=== PATIENT | female | born 1940 | race African-American/Black ===

== ENCOUNTER 2016-10-19 10:45 | Emergency (ER) | payer MEDICARE ==
[2016-10-19 10:50] VITALS: BP 111/61
== END 2016-10-19 12:48 | disposition left against medical advice (07) ==
LOC: ED 10:45
DX: R06.02 Shortness of breath (principal); Z53.21 Procedure and treatment not carried out due to patient leaving prior to being seen by health care provider

== ENCOUNTER 2017-07-08 10:59 | Emergency (ER) | payer MEDICARE ==
--- NOTE | 2017-07-08 11:54 | RAD ---
INDICATION: Chest pain. COMPARISON: Correlation is made with a prior study from August 08, 2016. TECHNIQUE: A portable view of the chest was obtained. FINDINGS: The heart is enlarged and unchanged from the prior exam. There is a dual-chamber transvenous pacemaker present. There is mild diffuse prominence of the interstitial markings. No focal infiltrate or pleural effusion is seen. IMPRESSION: FINDINGS SUGGESTIVE OF CONGESTIVE HEART FAILURE.
[2017-07-08 12:21] LABS: Hematocrit 38 % (35-47); Mean Corpuscular HGB Conc 32 g/dl (31-36); Mean Corpuscular Hemoglobin 27 pg (27-31); Mean Corpuscular Volume 85 fL (80-97); Mean Platelet Volume 9 um3 (7.4-10.4); Red Blood Count 4.48 10^6/ul (4.0-5.4); Red Cell Distribution Width 20 % (10.5-15); White Blood Count 9.5 10^3/ul (3.5-10.8)
[2017-07-08 12:22] LABS: Comments Flag Yes
[2017-07-08 12:23] LABS: Add Diff/Slide Review? Slide Review Added
[2017-07-08 12:31] LABS: Albumin 4.1 g/dL (3.2-5.2); BUN/Creatinine Ratio 19.1 (8-20); Calcium 9.7 mg/dL (8.6-10.3); EGFR African American 23.5 (>60); EGFR Non-African American 18.2 (>60); Globulin 3.6 g/dL (2-4); Potassium 3.7 mmol/L (3.5-5.0); Total Bilirubin 0.6 mg/dL (0.2-1.0); Total Protein 7.7 g/dL (6.4-8.9)
[2017-07-08 12:33] LABS: Troponin I 0.01 ng/mL (<0.04)
[2017-07-08] MEDS ORDERED: Ketorolac INJ* 30 MG/ML 1 ML VIAL IV ONE (13:10)
[2017-07-08 16:47] VITALS: BP 95/58
--- NOTE | 2017-07-08 21:11 | ED ---
Rajni Norwood Thomas, scribed for Kenneth Calderón MD on 07/08/17 at 1156 . HPI Chest Pain - HPI Summary HPI Summary: The pt is a 76 y/o F presenting to the ED c/o mid sternal CP that began today at 06:00. The pain is constant. The pain is described as sharp. The pain is rated 8/10. The pain is aggravated by deep breaths and movement. The pain is reproducible. It is alleviated by nothing. The patient was given ASA 324 [employer]. She is on Coumadin. Her blood glucose is 202 measured by EMS. She has a pacemaker. Her PMD is Dr. Lopez and her meat inspector is Dr. Schwab. She is accompanied by a female family member. - History of Current Complaint Chief Complaint: EDChestPainROMI Time Seen by Provider: 07/08/17 11:09 Hx Obtained From: Patient, Family/Human Resource Intern - female family member is present Onset/Duration: Started Hours Ago - onset today at 06:00, Still Present Timing: Constant Current Severity: Severe Pain Intensity: 8 Pain Scale Used: 0-10 Numeric Chest Pain Location: Mid Sternal Character: Sharp/Stabbing Aggravating Factor(s): Movement, Deep Breaths Alleviating Factor(s): Nothing Associated Signs and Symptoms: Positive: Chest Pain - Additional Pertinent History Primary Care Physician: SINCERE - Allergy/Home Medications Allergies/Adverse Reactions: Allergies Allergy/AdvReac Type Severity Reaction Status Date / Time Cephalexin [From Keflex] Allergy Intermediate Facial Verified 10/19/16 10:51 Redness/Flushing Shellfish Allergy Allergy Unknown Swelling Verified 10/19/16 10:51 Of Face,Lips,& Throat Dofetilide [From Tikosyn] Allergy palpitations, Verified 10/19/16 10:51 heart racing Enoxaparin [From Lovenox] Allergy blood too Verified 10/19/16 10:51 thinned Latex Allergy Swelling Verified 10/19/16 10:51 Eggs or Egg-derived Products AdvReac Unknown GI Upset Verified 10/19/16 10:51 Home Medications: Home Medications Atorvastatin* [Lipitor*] 20 mg PO DAILY 07/08/17 [History Confirmed 07/08/17] Insulin LISPRO* [HumaLOG*] 15 units SUBCUT TID WITH MEALS 07/08/17 [History Confirmed 07/08/17] LoraTADine TAB(NF) [Claritin 10 MG TAB(NF)] 10 mg PO DAILY 07/08/17 [History Confirmed 07/08/17] Omeprazole CAP* [Prilosec CAP* 20 MG] 40 mg PO BID 07/08/17 [History Confirmed 07/08/17] Pregabalin CAP(*) [Lyrica CAP(*)] 100 mg PO BID 07/08/17 [History Confirmed 08/14] Warfarin TAB(*) [Coumadin TAB(*)] 5 mg PO DAILY 07/08/17 [History Confirmed 08/14] PMH/Surg Hx/FS Hx/Imm Hx Previously Healthy: No Endocrine/Hematology History: Reports: Hx Anticoagulant Therapy, Hx Blood Transfusions, Hx Diabetes, Hx Anemia, Other Endocrine/Hematological Disorders Cardiovascular History: Reports: Hx Angina, Hx Auto Implanted Cardiovert Defib, Hx Cardiomegaly, Hx Congestive Heart Failure, Hx Coronary Artery Disease, Hx Hypercholesterolemia, Hx Hypertension, Hx Pacemaker/ICD, Hx Syncope Denies: Hx Myocardial Infarction, Hx Valvular Heart Disease Respiratory History: Reports: Hx Asthma, Hx Chronic Obstructive Pulmonary Disease (COPD), Hx Pleural Effusion, Hx Pulmonary Edema, Hx Sleep Apnea GI History: Reports: Hx Diverticulosis, Hx Gall Bladder Disease, Hx Gastroesophageal Reflux Disease, Other GI Disorders - Enlarged liver, polyps History: Reports: Hx Chronic Renal Failure, Hx Kidney Stones Denies: Hx Renal Disease Musculoskeletal History: Reports: Hx Arthritis, Hx Back Problems, Hx Gout Sensory History: Reports: Hx Cataracts, Hx Contacts or Glasses, Hx Vision Problem - blurry, Other Sensory Impairments - Neuropathy Opthamlomology History: Reports: Hx Cataracts, Hx Contacts or Glasses, Hx Vision Problem - blurry, Other Sensory Impairments - Neuropathy Neurological History: Reports: Hx Headaches, Hx Peripheral Neuropathy Psychiatric History: Reports: Hx Anxiety, Hx Depression - Surgical History Surgery Procedure, Year, and Place: Cholecystectomy 29 years ago. Appy 29 years ago. HYSTERECTOMY 29 years ago. Pacemaker placement 2009 Hx Anesthesia Reactions: No - Immunization History Date of Tetanus Vaccine: Unk Date of Influenza Vaccine: Fall 2014 Infectious Disease History: No Infectious Disease History: Denies: Traveled Outside the [place] in Last 30 Days - Family History Known Family History: Positive: Cardiac Disease - Brother with [place] at age 34 - Social History Alcohol Use: None Hx Substance Use: No Substance Use Type: Reports: None Substance Use Comment - Amount & Last Used: tramadol; oxycodone Hx Tobacco Use: No Smoking Status (MU): Never Smoked Tobacco Have You Smoked in the Last Year: No Review of Systems Negative: Fever Positive: Chest Pain - reproducible sharp CP with onset today at 06:00 worse with deep breaths All Other Systems Reviewed And Are Negative: Yes Physical Exam Triage Information Reviewed: Yes Vital Signs On Initial Exam: Initial Vitals Temp Pulse Resp BP Pulse Ox 97.8 F 70 16 110/73 98 07/08/17 11:48 07/08/17 11:48 07/08/17 11:48 07/08/17 11:48 07/08/17 11:48 Vital Signs Reviewed: Yes Appearance: Positive: Well-Appearing, No Pain Distress, Obese Skin: Positive: Warm, Skin Color Reflects Adequate Perfusion, Dry Head/Face: Positive: Normal Head/Face Inspection Eyes: Positive: Normal ENT: Positive: Normal ENT inspection Neck: Positive: Supple, Nontender Respiratory/Lung Sounds: Positive: Clear to Auscultation, Breath Sounds Present Cardiovascular: Positive: RRR, Other - She is tender to the left parasternal border. Abdomen Description: Positive: Nontender, Soft Bowel Sounds: Positive: Present Musculoskeletal: Positive: Normal Neurological: Positive: Normal Psychiatric: Positive: Normal, Affect/Mood Appropriate Diagnostics - Vital Signs Vital Signs Temp Pulse Resp BP Pulse Ox 07/08/17 11:48 97.8 F 70 16 110/73 98 - Laboratory Lab Results: Lab Results 07/08/17 07/08/17 07/08/17 Range/Units 11:55 11:55 11:55 WBC 9.5 (3.5-10.8) 10^3/ul RBC 4.48 (4.0-5.4) 10^6/ul Hgb 12.0 (12.0-16.0) g/dl Hct 38 (35-47) % MCV 85 (80-97) fL MCH 27 (27-31) pg MCHC 32 (31-36) g/dl RDW 20 H (10.5-15) % Plt Count 153 (150-450) 10^3/ul MPV 9 (7.4-10.4) um3 Neut % (Auto) 58.8 (38-83) % Lymph % (Auto) 25.3 (25-47) % [place] % (Auto) 13.2 H (1-9) % Eos % (Auto) 1.8 (0-6) % Baso % (Auto) 0.9 (0-2) % Absolute Neuts (auto) 5.6 (1.5-7.7) 10^3/ul Absolute Lymphs (auto) 2.4 (1.0-4.8) 10^3/ul Absolute Monos (auto) 1.2 H (0-0.8) 10^3/ul Absolute Eos (auto) 0.2 (0-0.6) 10^3/ul Absolute Basos (auto) 0.1 (0-0.2) 10^3/ul Absolute Nucleated RBC 0.06 10^3/ul Nucleated RBC % 0.6 INR (Anticoag Therapy) 1.87 H (0.89-1.11) Sodium 136 (133-145) mmol/L Potassium 3.7 (3.5-5.0) mmol/L Chloride 97 L (101-111) mmol/L Carbon Dioxide 31 (22-32) mmol/L Anion Gap 8 (2-11) mmol/L BUN 49 H (6-24) mg/dL Creatinine 2.57 H (0.51-0.95) mg/dL Est GFR ( Amer) 23.5 (>60) Est GFR (Non-Af Amer) 18.2 (>60) BUN/Creatinine Ratio 19.1 (8-20) Glucose 160 H (70-100) mg/dL Lactic Acid (0.5-2.0) mmol/L Calcium 9.7 (8.6-10.3) mg/dL Total Bilirubin 0.60 (0.2-1.0) mg/dL AST 15 (13-39) U/L ALT 11 (7-52) U/L Alkaline Phosphatase 68 (34-104) U/L Troponin I 0.01 (<0.04) ng/mL Total Protein 7.7 (6.4-8.9) g/dL Albumin 4.1 (3.2-5.2) g/dL Globulin 3.6 (2-4) g/dL Albumin/Globulin Ratio 1.1 (1-3) 07/08/17 07/08/17 Range/Units 11:55 14:25 WBC (3.5-10.8) 10^3/ul RBC (4.0-5.4) 10^6/ul Hgb (12.0-16.0) g/dl Hct (35-47) % MCV (80-97) fL MCH (27-31) pg MCHC (31-36) g/dl RDW (10.5-15) % Plt Count (150-450) 10^3/ul MPV (7.4-10.4) um3 Neut % (Auto) (38-83) % Lymph % (Auto) (25-47) % [place] % (Auto) (1-9) % Eos % (Auto) (0-6) % Baso % (Auto) (0-2) % Absolute Neuts (auto) (1.5-7.7) 10^3/ul Absolute Lymphs (auto) (1.0-4.8) 10^3/ul Absolute Monos (auto) (0-0.8) 10^3/ul Absolute Eos (auto) (0-0.6) 10^3/ul Absolute Basos (auto) (0-0.2) 10^3/ul Absolute Nucleated RBC 10^3/ul Nucleated RBC % INR (Anticoag Therapy) (0.89-1.11) Sodium (133-145) mmol/L Potassium (3.5-5.0) mmol/L Chloride (101-111) mmol/L Carbon Dioxide (22-32) mmol/L Anion Gap (2-11) mmol/L BUN (6-24) mg/dL Creatinine (0.51-0.95) mg/dL Est GFR ( Amer) (>60) Est GFR (Non-Af Amer) (>60) BUN/Creatinine Ratio (8-20) Glucose (70-100) mg/dL Lactic Acid 1.6 (0.5-2.0) mmol/L Calcium (8.6-10.3) mg/dL Total Bilirubin (0.2-1.0) mg/dL AST (13-39) U/L ALT (7-52) U/L Alkaline Phosphatase (34-104) U/L Troponin I 0.01 (<0.04) ng/mL Total Protein (6.4-8.9) g/dL Albumin (3.2-5.2) g/dL Globulin (2-4) g/dL Albumin/Globulin Ratio (1-3) Result Diagrams: 07/08/17 11:55 07/08/17 11:55 Lab Statement: Any lab studies that have been ordered have been reviewed, and results considered in the medical decision making process. - Radiology CXR Xray Interpretation: Positive (See Comments) - Findings suggestive of CHF. ED physician has reviewed this report and agrees. Radiology Interpretation Completed By: Radiologist - EKG 11:20 Cardiac Rate: NL - 70 BPM EKG Interpretation: Paced Chest Pain Course/Dx - Course Course Of Treatment: Ms. Forte presented with a reproducible atypical chest pain. He EDACS score was 4 and her W/U including a delayed troponin was negative. - Diagnoses Provider Diagnoses: Chest pain Discharge - Discharge Plan Condition: Stable Disposition: HOME Patient Education Materials: Chest Pain (ED) Referrals: January Lopez MD [Primary Care Provider] - 3 Days Additional Instructions: Follow up with your primary care provider in 2-3 days. I recommend ibuprofen for the pain. Return to the emergency for any new or worsening symptoms. The documentation as recorded by the Rajni irvin Thomas accurately reflects the service I personally performed and the decisions made by me, Kenneth Calderón MD.
== END 2017-07-08 16:10 | disposition home or self-care (01) ==
LOC: ED 10:59
DX: R07.9 Chest pain, unspecified (principal); Z79.01 Long term (current) use of anticoagulants
CPT/HCPCS: 36415; 71010; 80053; 83605; 84484; 85025; 85610; 93005; 96374; 99284; J1885

== ENCOUNTER 2018-02-12 19:30 | Inpatient (IN) | payer MEDICARE ==
[2018-02-12 22:08] LABS: Hematocrit 37 % (35-47); Hemoglobin 11.8 g/dl (12.0-16.0); Mean Corpuscular HGB Conc 32 g/dl (31-36); Mean Corpuscular Hemoglobin 28 pg (27-31); Mean Corpuscular Volume 87 fL (80-97); Mean Platelet Volume 8.8 um3 (7.4-10.4); Platelet Count 144 10^3/ul (150-450); Red Blood Count 4.21 10^6/ul (4.0-5.4); Red Cell Distribution Width 20 % (10.5-15); White Blood Count 7.7 10^3/ul (3.5-10.8)
[2018-02-12 22:30] LABS: EGFR Non-African American 20.6 (>60)
[2018-02-12 23:06] LABS: ABS Basophils 0.1 10^3/ul (0-0.2); ABS Eosinophils 0.1 10^3/ul (0-0.6); ABS Lymphocytes 2.1 10^3/ul (1.0-4.8); ABS Neutrophils 4.3 10^3/ul (1.5-7.7); ABS Nucleated RBC 0 10^3/ul; Eosinophil % 1.8 % (0-6); Lymphocyte % 27.8 % (25-47); Nucleated Red Blood Cells % 0.3
[2018-02-12] MEDS ORDERED: Furosemide IV* 10 MG/ML VIAL (40 MG) IV SLOW PU ONE (23:18)
--- NOTE | 2018-02-12 23:47 | ED ---
Uzma Norwood Emily, scribed for Kenneth Mccall MD on 02/12/18 at 2258 . HPI Chest Pain - HPI Summary HPI Summary: This patient is a 77 year old F presenting to [facility] accompanied by family with a chief complaint of waxing and waning, L-sided, below breast CP that began on the morning of 02/11/2018. The patient rates the pain 8/10 in severity. Symptoms aggravated by activity and lying on R side. Symptoms alleviated by nothing. Patient reports SOB, weakness, and fatigue. Pt reports waking up at 0300 yesterday with the CP. Pt reports being awake until 0300 today due to pain. Pt reports feeling weak and tired upon waking today. Pt reports having similar symptoms previously associated with her having fluid around her heart. - History of Current Complaint Chief Complaint: EDChestPainROMI Time Seen by Provider: 02/12/18 22:53 Hx Obtained From: Patient Onset/Duration: Started Days Ago, Still Present Timing: Constant, Lasting Days Initial Severity: Moderate Current Severity: Moderate Pain Intensity: 5 Pain Scale Used: 0-10 Numeric Chest Pain Location: Left Lateral Chest Pain Radiates: No Aggravating Factor(s): Exertion, Position Alleviating Factor(s): Nothing Associated Signs and Symptoms: Positive: Other: - Positive SOB, weakness, and fatigue - Additional Pertinent History Primary Care Physician: SINCERE - Allergy/Home Medications Allergies/Adverse Reactions: Allergies Allergy/AdvReac Type Severity Reaction Status Date / Time cephalexin [From Keflex] Allergy Facial Verified 02/12/18 19:38 Redness/Flushing dofetilide [From Tikosyn] Allergy Palpitation Verified 02/12/18 19:38 s Egg Derived Allergy GI Upset Verified 02/12/18 19:38 enoxaparin [From Lovenox] Allergy See Comment Verified 02/12/18 19:38 latex Allergy Swelling Verified 02/12/18 19:38 shellfish derived Allergy Swelling Verified 02/12/18 19:38 Of Face,Lips,& Throat PMH/Surg Hx/FS Hx/Imm Hx Previously Healthy: No Endocrine/Hematology History: Reports: Hx Anticoagulant Therapy, Hx Blood Transfusions, Hx Diabetes, Hx Anemia, Other Endocrine/Hematological Disorders Cardiovascular History: Reports: Hx Angina, Hx Auto Implanted Cardiovert Defib, Hx Cardiomegaly, Hx Congestive Heart Failure, Hx Coronary Artery Disease, Hx Hypercholesterolemia, Hx Hypertension, Hx Pacemaker/ICD, Hx Syncope Denies: Hx Myocardial Infarction, Hx Valvular Heart Disease Respiratory History: Reports: Hx Asthma, Hx Chronic Obstructive Pulmonary Disease (COPD), Hx Pleural Effusion, Hx Pulmonary Edema, Hx Sleep Apnea GI History: Reports: Hx Diverticulosis, Hx Gall Bladder Disease, Hx Gastroesophageal Reflux Disease, Other GI Disorders - Enlarged liver, polyps History: Reports: Hx Chronic Renal Failure, Hx Kidney Stones Denies: Hx Renal Disease Musculoskeletal History: Reports: Hx Arthritis, Hx Back Problems, Hx Gout Sensory History: Reports: Hx Cataracts, Hx Contacts or Glasses, Hx Vision Problem - blurry, Other Sensory Impairments - Neuropathy Opthamlomology History: Reports: Hx Cataracts, Hx Contacts or Glasses, Hx Vision Problem - blurry, Other Sensory Impairments - Neuropathy Neurological History: Reports: Hx Headaches, Hx Peripheral Neuropathy Psychiatric History: Reports: Hx Anxiety, Hx Depression - Surgical History Surgery Procedure, Year, and Place: Cholecystectomy 29 years ago. Appy 29 years ago. HYSTERECTOMY 29 years ago. Pacemaker placement 2009 Hx Anesthesia Reactions: No - Immunization History Date of Tetanus Vaccine: Unk Date of Influenza Vaccine: Fall 2014 Infectious Disease History: No Infectious Disease History: Denies: Traveled Outside the [place] in Last 30 Days - Family History Known Family History: Positive: Cardiac Disease - Brother with [place] at age 34 - Social History Occupation: Retired Lives: With Family Alcohol Use: None Hx Substance Use: No Substance Use Type: Reports: None Substance Use Comment - Amount & Last Used: tramadol; oxycodone Hx Tobacco Use: No Smoking Status (MU): Never Smoked Tobacco Have You Smoked in the Last Year: No Review of Systems Positive: Fatigue Positive: Chest Pain Positive: Shortness Of Breath Positive: Weakness All Other Systems Reviewed And Are Negative: Yes Physical Exam - Summary Physical Exam Summary: Appearance: Well-appearing, Well-nourished, lying in bed comfortably Skin: Warm, dry, no obvious rash Eyes: sclera anicteric, no conjunctiva pallor ENT: mucous membranes moist, pharynx appears normal Neck: Supple, nontender Respiratory: No signs of respiratory distress. End expiratory wheezing, but good aeration. Cardiovascular: Normal S1, S2. No murmurs. Normal distal pulses in tibial and radial bilaterally. No abnormal heart sounds. No pericardial friction rub Abdomen: Soft, nontender, normal active bowel sounds present Musculoskeletal: Normal, Strength/ROM Intact Neurological: A&Ox3, awake and alert, mentation is normal, speech is fluent and appropriate Psychiatric: affect is normal, does not appear anxious or depressed Triage Information Reviewed: Yes Vital Signs On Initial Exam: Initial Vitals Temp Pulse Resp BP Pulse Ox 98.8 F 70 18 143/79 92 02/12/18 19:35 02/12/18 19:35 02/12/18 19:35 02/12/18 19:35 02/12/18 19:35 Vital Signs Reviewed: Yes Diagnostics - Vital Signs Vital Signs Temp Pulse Resp BP Pulse Ox 02/12/18 22:33 70 16 93 02/12/18 21:36 97.9 F 70 18 130/69 96 02/12/18 19:35 98.8 F 70 18 143/79 92 - Laboratory Lab Results: Lab Results 02/12/18 02/12/18 Range/Units 21:51 21:51 WBC 7.7 (3.5-10.8) 10^3/ul RBC 4.21 (4.0-5.4) 10^6/ul Hgb 11.8 L (12.0-16.0) g/dl Hct 37 (35-47) % MCV 87 (80-97) fL MCH 28 (27-31) pg MCHC 32 (31-36) g/dl RDW 20 H (10.5-15) % Plt Count 144 L (150-450) 10^3/ul MPV 8.8 (7.4-10.4) um3 Neut % (Auto) Pending Lymph % (Auto) Pending [place] % (Auto) Pending Eos % (Auto) Pending Baso % (Auto) Pending Absolute Neuts (auto) Pending Absolute Lymphs (auto) Pending Absolute Monos (auto) Pending Absolute Eos (auto) Pending Absolute Basos (auto) Pending Absolute Nucleated RBC Pending Nucleated RBC % Pending Sodium 139 (139-145) mmol/L Potassium 3.8 (3.5-5.0) mmol/L Chloride 99 L (101-111) mmol/L Carbon Dioxide 33 H (22-32) mmol/L Anion Gap 7 (2-11) mmol/L BUN 41 H (6-24) mg/dL Creatinine 2.31 H (0.51-0.95) mg/dL Est GFR ( Amer) 26.5 (>60) Est GFR (Non-Af Amer) 20.6 (>60) BUN/Creatinine Ratio 17.7 (8-20) Glucose 171 H (70-100) mg/dL Calcium 9.4 (8.6-10.3) mg/dL Total Bilirubin 0.50 (0.2-1.0) mg/dL AST 15 (13-39) U/L ALT 10 (7-52) U/L Alkaline Phosphatase 69 (34-104) U/L Troponin I 0.00 (<0.04) ng/mL Total Protein 7.8 (6.4-8.9) g/dL Albumin 4.0 (3.2-5.2) g/dL Globulin 3.8 (2-4) g/dL Albumin/Globulin Ratio 1.1 (1-3) Result Diagrams: 02/12/18 21:51 02/12/18 21:51 Lab Statement: Any lab studies that have been ordered have been reviewed, and results considered in the medical decision making process. - Radiology CXR Radiology Interpretation Completed By: ED Physician - CXR reveals, per ED physician, cardiomegaly (unchanged), pacer wires look fine, increased interstitial markings which is consistent with CHF (which is changed from prior film from June,). - EKG 1928 Cardiac Rate: NL EKG Interpretation: Atrial paced at 71 BPM. No further analysis attempted Chest Pain Course/Dx - Diagnoses Provider Diagnoses: CHF (congestive heart failure), Chest pain - Provider Notifications Discussed Care Of Patient With: Patrick Posey Time Discussed With Above Provider: 23:29 Instructed by Provider To: Other - Consult with Dr. Posey (hospitalist) at 1329. He agrees to admit pt for further evaluation. Discharge - Sign-Out/Discharge Documenting (check all that apply): Discharge/Admit/Transfer - Discharge Plan Condition: Guarded Disposition: ADMITTED TO [facility] Referrals: January Lopez MD [Primary Care Provider] - - Billing Disposition and Condition Condition: GUARDED Disposition: [facility] [place] The documentation as recorded by the Uzma irvin Emily accurately reflects the service I personally performed and the decisions made by me, Kenneth Mccall MD.
--- NOTE | 2018-02-13 00:12 | HP ---
H&P (Free Text) History and Physical: PCP: Adrianna Lopez MD Date/Time: 02/12/2018 5637 CC: chest pain HPI: Mrs Suarez is a 78YO female HX DM2, CKD stg 4, AFIB, polymorphic VT, pericardial tamponade, CHF, non-obstructive CAD, HTN, HLD who presents with non- exertional chest pain radiating into the L neck and LUE associated with SOB, mild nausea, sweats, palpitations, and wheeze, but no emesis, light-headedness, F/C, diarrhea, or other issues. The pain is worse with movement & lying on the R side, better with immobility. PMedHx insulin requiring DM2 CKD stg 4 AFIB polymorphic VT pericardial tamponade AV pacer placement CHF non-obstructive CAD HTN HLD SUKH GERD gout anxiety Ambulatory Orders Nursing to reconcile. Albuterol HFA INHALER* [Ventolin HFA Inhaler*] 2 puff INH Q4H PRN 11/23/15 Linagliptin (NF) [Tradjenta (NF)] 5 mg PO DAILY 11/23/15 Metoprolol Succinate XL TAB* [Toprol XL TAB*] 100 mg PO BID 11/23/15 Montelukast Sodium TAB* [Singulair 10 MG TAB*] 10 mg PO DAILY 11/23/15 Polyethylene Glycol 3350* [Miralax*] 1 packet PO DAILY PRN 11/23/15 Torsemide TAB* [Demadex 20 MG*] 40 mg PO DAILY 11/23/15 oxyCODONE/Acetamin 5/325 MG* [Percocet 5/325 TAB*] 1 tab PO Q4H PRN 11/23/15 Allopurinol TAB* [Zyloprim 100 MG TAB*] 100 mg PO DAILY 02/19/16 Cholecalciferol TAB* [Vitamin D TAB*] 1,000 unit PO BID 02/19/16 Fluticasone-Salmeterol 500-50* [Advair Diskus 500-50*] 1 puff INH BID 02/19/16 Insulin GLARGINE(*) [Lantus(*)] 105 units SUBCUT QPM 02/19/16 Insulin GLARGINE(*) [Lantus(*)] 110 units SUBCUT QAM 02/19/16 Cyanocobalamin [B-12 Dots] 500 mcg PO QAM 08/08/16 Fluticasone NASAL SPRAY 50MCG* [Flonase NASAL SPRAY 50MCG*] 2 spray BOTH NARES DAILY 08/08/16 Magnesium Hydroxide LIQ* [Milk of Magnesia LIQ*] 30 ml PO DAILY 08/08/16 Mometasone 220 MCG MDI * [Asmanex 220 MCG MDI *] 2 puff INH DAILY 08/08/16 Olopatadine 0.1% OPHTH (NF) 1 drop BOTH EYES BID 08/08/16 [place]-3 Fatty Acids/Fish Oil [[place] 3 1,000 mg Softgel] 2 cap PO BID 08/08/16 Spironolactone [Aldactone 50 MG-] 50 mg PO QAM 08/08/16 metOLazone [Metolazone] 2.5 mg PO DAILY PRN 08/08/16 Atorvastatin* [Lipitor*] 20 mg PO DAILY 07/08/17 Insulin LISPRO* [HumaLOG*] 15 units SUBCUT TID WITH MEALS 07/08/17 LoraTADine TAB(NF) [Claritin 10 MG TAB(NF)] 10 mg PO DAILY 07/08/17 Omeprazole CAP* [Prilosec CAP* 20 MG] 40 mg PO BID 07/08/17 Pregabalin CAP(*) [Lyrica CAP(*)] 100 mg PO BID 07/08/17 Warfarin TAB(*) [Coumadin TAB(*)] 5 mg PO DAILY 07/08/17 Allergies latex Allergy (Verified 02/12/18 19:38) Swelling shellfish derived Allergy (Verified 02/12/18 19:38) Swelling Of Face,Lips,& Throat cephalexin [From Keflex] Adverse Reaction (Mild, Verified 02/13/18 02:44) Facial Redness/Flushing dofetilide [From Tikosyn] Adverse Reaction (Verified 02/13/18 02:44) Palpitations Egg Derived Adverse Reaction (Verified 02/13/18 02:44) GI Upset enoxaparin [From Lovenox] Adverse Reaction (Verified 02/13/18 02:44) "blood too thin" SocHx: no tobacco, alcohol, or recreational drugs; lives with son; full code status FamHx: Mother passed in her 50s 2nd CVA w/ CAD & RA. Father passed in his 90s of CVA w/ CAD. ROS: as above, otherwise reviewed and all were negative vitals: Vital Signs Temp 36.8 C 02/13/18 01:44 Pulse 70 02/13/18 01:44 Resp 18 02/13/18 03:24 BP 151/63 02/13/18 01:44 Pulse Ox 95 02/13/18 01:44 Intake & Output 02/12/18 02/12/18 02/13/18 11:59 23:59 11:59 Weight 112.945 kg 113.307 kg Constitutional: NAD, normally developed, morbidly obese HEENM: atraumatic; sclera/conjunctiva: anicteric/clear; hearing: clinically intact; oropharynx: clear, mucosa moist Neck: soft tissue: non-tender; thyroid: normal Pulmonary: diminished B bilaterally, fair aeration, no accessory muscle use CV: RR/RR, normal S1S2, no carotid bruit, no jugular venous distention, 2+ B DP/ PT, 1+ BLE edema Abdominal: soft, non-distended, non-tender, no rebound/guarding/rigidity, normoactive bowel sounds, no hepatosplenomegaly or masses, no costovertebral angle tenderness Musculoskeletal: general: grossly intact, non-tender Integumental: normal appearance and texture of exposed skin Psychiatric orientation: AA&O to PPS affect: calm mood: cooperative eye contact: good content: reliable responses: timely insight: good Testing: Lab Results 02/12/18 02/12/18 02/13/18 Range/Units 21:51 21:51 00:03 WBC 7.7 (3.5-10.8) 10^3/ul RBC 4.21 (4.0-5.4) 10^6/ul Hgb 11.8 L (12.0-16.0) g/dl Hct 37 (35-47) % MCV 87 (80-97) fL MCH 28 (27-31) pg MCHC 32 (31-36) g/dl RDW 20 H (10.5-15) % Plt Count 144 L (150-450) 10^3/ul MPV 8.8 (7.4-10.4) um3 Neut % (Auto) 55.5 (38-83) % Lymph % (Auto) 27.8 (25-47) % [place] % (Auto) 13.7 H (0-7) % Eos % (Auto) 1.8 (0-6) % Baso % (Auto) 1.2 (0-2) % Absolute Neuts (auto) 4.3 (1.5-7.7) 10^3/ul Absolute Lymphs (auto) 2.1 (1.0-4.8) 10^3/ul Absolute Monos (auto) 1.0 H (0-0.8) 10^3/ul Absolute Eos (auto) 0.1 (0-0.6) 10^3/ul Absolute Basos (auto) 0.1 (0-0.2) 10^3/ul Absolute Nucleated RBC 0 10^3/ul Nucleated RBC % 0.3 Sodium 139 (139-145) mmol/L Potassium 3.8 (3.5-5.0) mmol/L Chloride 99 L (101-111) mmol/L Carbon Dioxide 33 H (22-32) mmol/L Anion Gap 7 (2-11) mmol/L BUN 41 H (6-24) mg/dL Creatinine 2.31 H (0.51-0.95) mg/dL Est GFR ( Amer) 26.5 (>60) Est GFR (Non-Af Amer) 20.6 (>60) BUN/Creatinine Ratio 17.7 (8-20) Glucose 171 H (70-100) mg/dL Calcium 9.4 (8.6-10.3) mg/dL Total Bilirubin 0.50 (0.2-1.0) mg/dL AST 15 (13-39) U/L ALT 10 (7-52) U/L Alkaline Phosphatase 69 (34-104) U/L Troponin I 0.00 0.00 (<0.04) ng/mL Total Protein 7.8 (6.4-8.9) g/dL Albumin 4.0 (3.2-5.2) g/dL Globulin 3.8 (2-4) g/dL Albumin/Globulin Ratio 1.1 (1-3) / Range/Units 02:54 WBC (3.5-10.8) 10^3/ul RBC (4.0-5.4) 10^6/ul Hgb (12.0-16.0) g/dl Hct (35-47) % MCV (80-97) fL MCH (27-31) pg MCHC (31-36) g/dl RDW (10.5-15) % Plt Count (150-450) 10^3/ul MPV (7.4-10.4) um3 Neut % (Auto) (38-83) % Lymph % (Auto) (25-47) % [place] % (Auto) (0-7) % Eos % (Auto) (0-6) % Baso % (Auto) (0-2) % Absolute Neuts (auto) (1.5-7.7) 10^3/ul Absolute Lymphs (auto) (1.0-4.8) 10^3/ul Absolute Monos (auto) (0-0.8) 10^3/ul Absolute Eos (auto) (0-0.6) 10^3/ul Absolute Basos (auto) (0-0.2) 10^3/ul Absolute Nucleated RBC 10^3/ul Nucleated RBC % Sodium (139-145) mmol/L Potassium (3.5-5.0) mmol/L Chloride (101-111) mmol/L Carbon Dioxide (22-32) mmol/L Anion Gap (2-11) mmol/L BUN (6-24) mg/dL Creatinine (0.51-0.95) mg/dL Est GFR ( Amer) (>60) Est GFR (Non-Af Amer) (>60) BUN/Creatinine Ratio (8-20) Glucose (70-100) mg/dL Calcium (8.6-10.3) mg/dL Total Bilirubin (0.2-1.0) mg/dL AST (13-39) U/L ALT (7-52) U/L Alkaline Phosphatase (34-104) U/L Troponin I 0.00 (<0.04) ng/mL Total Protein (6.4-8.9) g/dL Albumin (3.2-5.2) g/dL Globulin (2-4) g/dL Albumin/Globulin Ratio (1-3) ECG, personally reviewed: AV pacing rate 71 CXR, personally reviewed: pulmonary edema ECHO (10/2015): Conclusions: The study is technically limited due to patient body habitus. Echocardiographic imaging enhancement agent (Definity) was used to better define LV endocardium. The left ventricular chamber size is normal. Mild concentric left ventricular hypertrophy is observed. The estimated ejection fraction is 55-60%. The left atrium is moderately dilated. The right ventricle is not well visualized although appears to be mildly dilated with mildly reduced systolic function. The right atrium is mildly dilated. There is evidence of an atrial septal aneurysm. There is mild tricuspid and mitral regurgitation that may be underestimated.There is evidence of mild to moderate pulmonary hypertension. Compared to prior study from 05/12/2014, significant changes include that the right ventricle is not well visualized although appears to be mildly dilated with mildly reduced function (was reported as normal previously). Impression: 78F HX DM2, CKD stg 4, AFIB, polymorphic VT, pericardial tamponade, CHF, non-obstructive CAD, HTN, & HLD presents with acute DIAGNOSIS & PLAN Primary acute systolic HF : furosemide diuresis : strict I&Os : daily weights : supplemental oxygen : supportive care Secondary insulin requiring DM2 : check A1c : basal/bolus/correctional insulin : insulin carb ratio diet CKD stg 4 : periodic monitoring AFIB : review meds once reconciled HX polymorphic VT HX pericardial tamponade s/p AV pacer placement : no acute issues non-obstructive CAD : review meds once reconciled HTN : review meds once reconciled HLD : review meds once reconciled GERD : review meds once reconciled gout : review meds once reconciled anxiety : review meds once reconciled Admission Rational: observation for CHF DVTp: continue warfarin once reconciled Code Status: full HCP: son
[2018-02-13] MEDS ORDERED: Acetaminophen TAB* 325 MG PO PRN (00:13)
[2018-02-13] MEDS ORDERED: CMCS: Melatonin (NF) 3 MG TAB PO PRN (00:13)
[2018-02-13] MEDS ORDERED: Albuterol HFA INHALER* 8 gm MDI INH PRN (02:39)
[2018-02-13] MEDS ORDERED: Metolazone TAB* 5 MG PO PRN (02:39)
[2018-02-13] MEDS: oxyCODONE/Acetamin 5/325 MG* TAB PO PRN ×3 (03:24→20:02)
[2018-02-13] MEDS: Metoprolol Succinate XL TAB* 100 MG PO SCH ×2 (03:24→21:40)
[2018-02-13] MEDS: Pregabalin CAP(*) 100 MG PO SCH ×2 (03:24→21:40)
[2018-02-13] MEDS ORDERED: Omeprazole CAP* 20 MG PO SCH (06:00)
[2018-02-13 07:06] LABS: INR 1.36 (0.77-1.02)
[2018-02-13 07:10] LABS: EGFR Non-African American 21.6 (>60)
--- NOTE | 2018-02-13 07:52 | RAD ---
HISTORY: Chest pain COMPARISONS: July 08, 2017 VIEWS: 1: frontal portable view of the chest at 10:40 PM FINDINGS: LINES AND TUBES: A left-sided pacemaker is noted. CARDIOMEDIASTINAL SILHOUETTE: The cardiac silhouette is enlarged. The cardiomediastinal silhouette is otherwise normal for portable technique. PLEURA: The costophrenic angles are sharp. No pleural abnormalities are noted. LUNG PARENCHYMA: There is prominence of the central pulmonary vasculature. ABDOMEN: The upper abdomen is clear. There is no subphrenic gas. BONES AND SOFT TISSUES: No bone or soft tissue abnormalities are noted. IMPRESSION: CARDIOMEGALY WITH PULMONARY VASCULAR CONGESTION
[2018-02-13] MEDS: Mometasone/Formoter 200/5 MDI INH SCH ×2 (08:05→19:52)
[2018-02-13] MEDS: Furosemide IV* 10 MG/ML VIAL (40 MG) IV SCH ×2 (08:26→12:47)
[2018-02-13] MEDS: Omeprazole CAP* 20 MG PO SCH ×2 (08:29→21:40)
[2018-02-13] MEDS: Docusate CAP* 100 MG PO SCH ×2 (08:29→21:40)
[2018-02-13] MEDS: Montelukast Sodium TAB* 10 MG PO SCH (08:30)
[2018-02-13] MEDS: Spironolactone TAB* 25 MG PO SCH (08:30)
[2018-02-13] MEDS: LINAGLIPTIN 5 MG PO SCH (08:31)
[2018-02-13] MEDS: Atorvastatin* 20 MG TAB PO SCH (08:31)
[2018-02-13] MEDS: Allopurinol TAB* 100 MG PO SCH (08:31)
[2018-02-13] MEDS: Insulin LISPRO* 1 UNITS UNIT SUBCUT SCH ×7 (09:15→21:44)
--- NOTE | 2018-02-13 09:47 | PN ---
Subjective Date of Service: 02/13/18 Interval History: HOSPITALIST PROGRESS NOTE Patient seen and examined at bedside. Care reviewed and d/w Mone Hardwick RN. Ms. Alberto feels better today. Denies chest pain, but breathing is still heavy and not back to baseline. She initially denied dietary indiscretions, but with further questions, she admits eating chips and cold cuts before her symptoms started. Family History: Unchanged from Admission Social History: Unchanged from Admission Past Medical History: Unchanged from Admission Objective Active Medications: Acetaminophen (Tylenol Tab*) 650 mg PO Q6H PRN PRN Reason: FEVER/PAIN Albuterol (Ventolin Hfa Inhaler*) 2 puff INH Q4H PRN PRN Reason: WHEEZING Allopurinol (Zyloprim Tab*) 100 mg PO DAILY [facility] Last Admin: 02/13/18 08:31 Dose: 100 mg Atorvastatin Calcium (Lipitor*) 20 mg PO DAILY [facility] Last Admin: 02/13/18 08:31 Dose: 20 mg Docusate Sodium (Colace Cap*) 200 mg PO BID [facility] Last Admin: 02/13/18 08:29 Dose: 200 mg Furosemide (Lasix Iv*) 40 mg IV 0800,1200 [facility] Last Admin: 02/13/18 08:26 Dose: 40 mg Insulin Glargine (Lantus(*)) 50 units SUBCUT 2100 [facility] Stop: 02/14/18 20:00 Insulin Human Lispro (Humalog*) 0 units SUBCUT AC [facility] PRN Reason: Protocol Last Admin: 02/13/18 09:15 Dose: 7 units Insulin Human Lispro (Humalog*) 0 units SUBCUT ACHS [facility] PRN Reason: Protocol Last Admin: 02/13/18 09:16 Dose: 3 units Linagliptin (Tradjenta (Nf)) 5 mg PO DAILY [facility] Last Admin: 02/13/18 08:31 Dose: Not Given Melatonin (Melatonin (Nf)) 3 mg PO BEDTIME PRN; Protocol PRN Reason: Sleep Metolazone (Zaroxolyn Tab*) 2.5 mg PO DAILY PRN PRN Reason: EDEMA Last Admin: 02/13/18 08:29 Dose: 2.5 mg Metoprolol Succinate (Toprol Xl Tab*) 100 mg PO BID [facility] Last Admin: 02/13/18 03:24 Dose: 100 mg Mometasone Furoate/Formoterol Fumar (Dulera 200/5 Mdi*) 2 puff INH BID [facility] Last Admin: 02/13/18 08:05 Dose: 2 puff Montelukast Sodium (Singulair Tab*) 10 mg PO DAILY [facility] Last Admin: 02/13/18 08:30 Dose: 10 mg Omeprazole (Prilosec Cap*) 40 mg PO BID [facility] Last Admin: 02/13/18 08:29 Dose: 40 mg Ondansetron HCl (Zofran Odt Tab*) 4 mg PO Q6H PRN PRN Reason: n/v Oxycodone/Acetaminophen (Percocet 5/325 Tab*) 1 tab PO Q4H PRN PRN Reason: PAIN Last Admin: 02/13/18 03:24 Dose: 1 tab Pregabalin (Lyrica Cap(*)) 100 mg PO BID [facility] Last Admin: 02/13/18 03:24 Dose: 100 mg Spironolactone (Aldactone Tab*) 50 mg PO QAM [facility] Last Admin: 02/13/18 08:30 Dose: 50 mg Warfarin Sodium (Coumadin Tab(*)) 5 mg PO 1700 [facility] PRN Reason: Protocol Vital Signs - 8 hr 02/13/18 02/13/18 02/13/18 03:24 03:35 06:13 Temperature 97.5 F Pulse Rate 70 Respiratory 18 20 16 Rate Blood Pressure 112/62 (mmHg) O2 Sat by Pulse 99 Oximetry 02/13/18 02/13/18 06:24 08:07 Temperature 98.0 F Pulse Rate 71 100 Respiratory 20 18 Rate Blood Pressure 129/72 (mmHg) O2 Sat by Pulse 93 94 Oximetry Oxygen Devices in Use Now: None Appearance: Morbid obese lady sitting up in bed in [facility]. Eyes: No Scleral Icterus Ears/Nose/Mouth/Throat: Mucous Membranes Moist Neck: Trachea Midline Respiratory: Symmetrical Chest Expansion and Respiratory Effort, - - BS+ bilaterally with bibasilar crackles Cardiovascular: RRR - Normal S1 and S2 Abdominal: NL Sounds; No Tenderness; No Distention Extremities: - - Mild LE edema Neurological: Alert and Oriented x 3, NL Muscle Strength and Tone Result Diagrams: 02/12/18 21:51 02/13/18 06:39 Assess/Plan/Problems-Billing Assessment: Mr. Suarez is a 77yo F with PMH of morbid obesity with BMI 42, type 2 DM, CKD stage 4, Afib, Vtach, pericardial tamponade, s/p pacer, CAD, diastolic CHF, HTN , HLD, SUKH, GERD, gout, anxiety, who presented to ED with c/o chest pain and dyspnea, found to have CHF exacerbation. - Patient Problems (1) Acute exacerbation of congestive heart failure Comment: - Acute diastolic CHF exacerbation secondary to dietary non complaince most likely. - Continue diuresis with Furosemide. - Monitor I/Os and daily weights. (2) Chest pain Comment: - Patient had non obstructive CAD in 2008 and stress test in 2016 was suggestive of an apical infarct. - Will pursue stress test when CHF compensated. (3) Type II diabetes mellitus Comment: - A1c is 9.1%. - Continue Lantus, Tradjenta, and Lispro SS. (4) Chronic renal disease, stage IV Comment: - At baseline. - Continue diuretics and monitor renal function. (5) Atrial fibrillation Comment: - Continue Metoprolol and Warfarin. (6) HTN (hypertension) Comment: - Continue Metoprolol, furosemide, aldactone. (7) DVT prophylaxis Comment: - SQ heparin until INR is therapeutic. (8) Full code status Status and Disposition: Inpatient for management of CHF exacerbation.
[2018-02-13] MEDS ORDERED: Warfarin TAB(*) 5 MG PO SCH (17:00)
[2018-02-13] MEDS ORDERED: Insulin GLARGINE(*) 1 UNITS UNIT SUBCUT SCH (21:00)
[2018-02-14] MEDS: oxyCODONE/Acetamin 5/325 MG* TAB PO PRN ×2 (03:02→09:12)
[2018-02-14] MEDS: Ondansetron ODT TAB* 4 MG PO PRN ×3 (03:25→21:22)
[2018-02-14] MEDS: Mometasone/Formoter 200/5 MDI INH SCH ×2 (07:59→20:28)
[2018-02-14] MEDS: Insulin LISPRO* 1 UNITS UNIT SUBCUT SCH ×7 (09:05→21:26)
[2018-02-14] MEDS: Furosemide IV* 10 MG/ML VIAL (40 MG) IV SCH ×2 (09:08→13:09)
[2018-02-14] MEDS: Docusate CAP* 100 MG PO SCH ×2 (09:08→21:22)
[2018-02-14] MEDS: Omeprazole CAP* 20 MG PO SCH ×2 (09:08→21:22)
[2018-02-14] MEDS: Allopurinol TAB* 100 MG PO SCH (09:08)
[2018-02-14] MEDS: Montelukast Sodium TAB* 10 MG PO SCH (09:08)
[2018-02-14] MEDS: Pregabalin CAP(*) 100 MG PO SCH ×2 (09:08→21:22)
[2018-02-14] MEDS: Spironolactone TAB* 25 MG PO SCH (09:08)
[2018-02-14] MEDS: Metoprolol Succinate XL TAB* 100 MG PO SCH ×2 (09:08→21:22)
[2018-02-14] MEDS: Atorvastatin* 20 MG TAB PO SCH (09:08)
[2018-02-14] MEDS: LINAGLIPTIN 5 MG PO SCH (09:16)
[2018-02-14 09:30] LABS: INR 1.29 (0.77-1.02)
[2018-02-14 09:42] LABS: EGFR Non-African American 21.2 (>60)
--- NOTE | 2018-02-14 10:34 | PN ---
Subjective Date of Service: 02/14/18 Interval History: HOSPITALIST PROGRESS NOTE Patient seen and examined at bedside. Care reviewed and d/w Nguyễn Aguila RN. She feels better today. Chest pain and heaviness are resolved, breathing is easier. Family History: Unchanged from Admission Social History: Unchanged from Admission Past Medical History: Unchanged from Admission Objective Active Medications: Acetaminophen (Tylenol Tab*) 650 mg PO Q6H PRN PRN Reason: FEVER/PAIN Albuterol (Ventolin Hfa Inhaler*) 2 puff INH Q4H PRN PRN Reason: WHEEZING Allopurinol (Zyloprim Tab*) 100 mg PO DAILY [facility] Last Admin: 02/14/18 09:08 Dose: 100 mg Atorvastatin Calcium (Lipitor*) 20 mg PO DAILY [facility] Last Admin: 02/14/18 09:08 Dose: 20 mg Docusate Sodium (Colace Cap*) 200 mg PO BID [facility] Last Admin: 02/14/18 09:08 Dose: 200 mg Furosemide (Lasix Iv*) 40 mg IV 0800,1200 [facility] Last Admin: 02/14/18 09:08 Dose: 40 mg Insulin Glargine (Lantus(*)) 50 units SUBCUT 2100 [facility] Last Admin: 02/13/18 21:43 Dose: 50 units Insulin Human Lispro (Humalog*) 0 units SUBCUT AC [facility] PRN Reason: Protocol Last Admin: 02/14/18 09:05 Dose: 5 units Insulin Human Lispro (Humalog*) 0 units SUBCUT ACHS [facility] PRN Reason: Protocol Last Admin: 02/14/18 09:05 Dose: 6 units Linagliptin (Tradjenta (Nf)) 5 mg PO DAILY [facility] Last Admin: 02/14/18 09:16 Dose: Not Given Melatonin (Melatonin (Nf)) 3 mg PO BEDTIME PRN; Protocol PRN Reason: Sleep Metoprolol Succinate (Toprol Xl Tab*) 100 mg PO BID [facility] Last Admin: 02/14/18 09:08 Dose: 100 mg Mometasone Furoate/Formoterol Fumar (Dulera 200/5 Mdi*) 2 puff INH BID [facility] Last Admin: 02/14/18 07:59 Dose: 2 puff Montelukast Sodium (Singulair Tab*) 10 mg PO DAILY [facility] Last Admin: 02/14/18 09:08 Dose: 10 mg Omeprazole (Prilosec Cap*) 40 mg PO BID [facility] Last Admin: 02/14/18 09:08 Dose: 40 mg Ondansetron HCl (Zofran Odt Tab*) 4 mg PO Q6H PRN PRN Reason: n/v Last Admin: 02/14/18 09:07 Dose: 4 mg Oxycodone/Acetaminophen (Percocet 5/325 Tab*) 1 tab PO Q4H PRN PRN Reason: PAIN Last Admin: 02/14/18 09:12 Dose: 1 tab Pregabalin (Lyrica Cap(*)) 100 mg PO BID [facility] Last Admin: 02/14/18 09:08 Dose: 100 mg Spironolactone (Aldactone Tab*) 50 mg PO QAM [facility] Last Admin: 02/14/18 09:08 Dose: 50 mg Warfarin Sodium (Coumadin Tab(*)) 5 mg PO 1700 [facility] PRN Reason: Protocol Last Admin: 02/13/18 18:30 Dose: 5 mg Vital Signs - 8 hr 02/14/18 02/14/18 02/14/18 03:02 08:01 09:08 Pulse Rate 74 Respiratory 18 14 16 Rate O2 Sat by Pulse 94 Oximetry Oxygen Devices in Use Now: None Appearance: Pleasant morbid obese lady sitting up in bed in [facility]. Eyes: No Scleral Icterus Ears/Nose/Mouth/Throat: Mucous Membranes Moist Neck: Trachea Midline Respiratory: Symmetrical Chest Expansion and Respiratory Effort, - - BS+ bilaterally with crackles on left base Cardiovascular: RRR - Normal S1 and S2 Neurological: Alert and Oriented x 3, NL Muscle Strength and Tone Result Diagrams: 02/12/18 21:51 02/14/18 09:17 Assess/Plan/Problems-Billing Assessment: Mr. Suarez is a 77yo F with PMH of morbid obesity with BMI 42, type 2 DM, CKD stage 4, Afib, Vtach, pericardial tamponade, s/p pacer, CAD, diastolic CHF, HTN , HLD, SUKH, GERD, gout, anxiety, who presented to ED with c/o chest pain and dyspnea, found to have CHF exacerbation. - Patient Problems (1) Acute exacerbation of congestive heart failure Comment: - Acute diastolic CHF exacerbation secondary to dietary non complaince most likely. - Continue diuresis with Furosemide. - Monitor I/Os and daily weights - weight down to 247lbs. (2) Chest pain Comment: - Patient had non obstructive CAD in 2009 and stress test in 2016 was suggestive of an apical infarct. - Will pursue stress test when CHF compensated. (3) Type II diabetes mellitus Comment: - A1c is 9.1%. - Continue Lantus, Tradjenta, and Lispro SS. (4) Chronic renal disease, stage IV Comment: - At baseline. - Continue diuretics and monitor renal function. (5) Atrial fibrillation Comment: - Continue Metoprolol and Warfarin. (6) HTN (hypertension) Comment: - Continue Metoprolol, furosemide, aldactone. (7) DVT prophylaxis Comment: - SQ heparin until INR is therapeutic. (8) Full code status Status and Disposition: Inpatient for management of CHF exacerbation.
[2018-02-14] MEDS ORDERED: Warfarin TAB(*) 6 MG PO SCH (17:00)
[2018-02-14] MEDS ORDERED: Insulin GLARGINE(*) 1 UNITS UNIT SUBCUT SCH (21:00)
[2018-02-15] MEDS: oxyCODONE/Acetamin 5/325 MG* TAB PO PRN ×4 (02:07→19:26)
[2018-02-15] MEDS: Insulin LISPRO* 1 UNITS UNIT SUBCUT SCH ×7 (08:00→20:37)
[2018-02-15] MEDS: Spironolactone TAB* 25 MG PO SCH (08:59)
[2018-02-15] MEDS: Omeprazole CAP* 20 MG PO SCH ×2 (08:59→20:34)
[2018-02-15] MEDS: Docusate CAP* 100 MG PO SCH ×3 (08:59→19:27)
[2018-02-15] MEDS: Montelukast Sodium TAB* 10 MG PO SCH (09:00)
[2018-02-15] MEDS: Furosemide IV* 10 MG/ML VIAL (40 MG) IV SCH ×2 (09:00→13:28)
[2018-02-15] MEDS: Atorvastatin* 20 MG TAB PO SCH (09:00)
[2018-02-15] MEDS: Pregabalin CAP(*) 100 MG PO SCH ×2 (09:00→20:35)
[2018-02-15] MEDS: Metoprolol Succinate XL TAB* 100 MG PO SCH ×2 (09:01→20:34)
[2018-02-15] MEDS: Allopurinol TAB* 100 MG PO SCH (09:01)
[2018-02-15] MEDS: LINAGLIPTIN 5 MG PO SCH (09:01)
[2018-02-15 09:17] LABS: INR 1.39 (0.77-1.02)
[2018-02-15 09:22] LABS: Hematocrit 38 % (35-47); Hemoglobin 12.1 g/dl (12.0-16.0); Mean Corpuscular HGB Conc 32 g/dl (31-36); Mean Corpuscular Hemoglobin 28 pg (27-31); Mean Corpuscular Volume 87 fL (80-97); Mean Platelet Volume 9.1 um3 (7.4-10.4); Platelet Count 146 10^3/ul (150-450); Red Blood Count 4.35 10^6/ul (4.0-5.4); Red Cell Distribution Width 20 % (10.5-15); White Blood Count 8.5 10^3/ul (3.5-10.8)
[2018-02-15 09:28] LABS: EGFR Non-African American 20.4 (>60)
[2018-02-15] MEDS: Mometasone/Formoter 200/5 MDI INH SCH ×2 (10:15→21:24)
[2018-02-15 10:29] LABS: ABS Basophils 0.1 10^3/ul (0-0.2); ABS Eosinophils 0.1 10^3/ul (0-0.6); ABS Neutrophils 5.2 10^3/ul (1.5-7.7); ABS Nucleated RBC 0 10^3/ul; Eosinophil % 1.6 % (0-6); Lymphocyte % 23.6 % (25-47); Nucleated Red Blood Cells % 0.4
[2018-02-15] MEDS ORDERED: Regadenoson* 0.4 MG/5 ML SYRINGE ONE (12:40)
--- NOTE | 2018-02-15 13:41 | RAD ---
Edited for charges. INDICATION: Chest pain COMPARISON: Myocardial SPECT August 11, 2016 TECHNIQUE: A single day SPECT protocol was utilized. Rest images were acquired following the intravenous injection of 10.52 millicuries of technetium 99m tetrofosmin. Pharmacologic stress images were acquired following the intravenous administration of 26.5 millicuries of technetium 99m tetrofosmin. FINDINGS: There is a small inferoapical defect perhaps with a small amount of ischemia in the inferior wall near the apex. There are no other defects or stress-induced or fixed nature.. The cardiac chamber size is normal. There is paradoxical motion at the cardiac apex inferiorly. The ejection fraction is calculated at 57 percent during stress. IMPRESSION: INFEROAPICAL DEFECT CONSISTENT WITH INFARCT. THERE MAY BE SUBTLE PREMA-INFARCT ISCHEMIC CHANGE. ASSESSMENT: INTERMEDIATE-RISK Based on imaging criteria from ACC/AHA 2002 Guideline Update for the Management of Patients With Chronic Stable Angina Table 23. Noninvasive Risk Stratification. MTDD
--- NOTE | 2018-02-15 14:52 | CONSULT ---
Subjective Reason for Visit: chest pain Admission Date: 02/12/18 Glucose Level On Admission: 171 History Of Present Illness: Ms. Suarez is a 77 year old female, admitted for acute systolic heart failure. Pt has history of poorly controlled type II diabetes, diabetes education consult requested by hospitalist group. Ms. Suarez reports being diagnosed with type II diabetes over 30 years ago. Is managed by her PCP Dr. Lopez and is prescribed Lantus (90 units AM, 80 units PM), Humalog (14 units TID). Fasting blood glucose typically ranges from 140-160 but frequently is in the 70's. Pt and her family report a long history of poor glycemic control, worse this winter when cold weather kept her homebound most of the time. Meal pattern is very irregular with frequent skipped meals. While family members provide most of her meals, often she refuses to eat. Pt reports that this is because they have been offering her healthier foods that she does not care for, and because poor dentition makes it difficult to chew. Drinks primarily gingerale. She has had nutrition education in the past but not recently. Patient History Surgical History: Yes Surgery Procedure, Year, and Place: Cholecystectomy 29 years ago. Appy 29 years ago. HYSTERECTOMY 29 years ago. Pacemaker placement 2009 Past Family History: Mother-CVA, CAD, RA Father-CVA, CAD Social Support: Multiple family members present at bedside. Family members provide most meals to patient. Hx Tobacco Use: No Exercise: Limited Review Of Systems - Review of Systems Constant: - - poor appetite Cardiovascular: - - Chest pain Objective Allergies Allergy/AdvReac Type Severity Reaction Status Date / Time latex Allergy Swelling Verified 02/12/18 19:38 shellfish derived Allergy Swelling Verified 02/12/18 19:38 Of Face,Lips,& Throat cephalexin [From Keflex] AdvReac Mild Facial Verified 02/13/18 02:44 Redness/Flushing dofetilide [From Tikosyn] AdvReac Palpitation Verified 02/13/18 02:44 s enoxaparin [From Lovenox] AdvReac "blood too Verified 02/13/18 02:44 thin" Home Medications Medication Instructions Recorded Confirmed Type Albuterol HFA INHALER* [Ventolin 2 puff INH Q4H PRN 11/23/15 02/13/18 History HFA Inhaler*] Linagliptin (NF) [Tradjenta (NF)] 5 mg PO DAILY 11/23/15 02/13/18 History Metoprolol Succinate XL TAB* 100 mg PO BID 11/23/15 02/13/18 History [Toprol XL TAB*] Montelukast Sodium TAB* [Singulair 10 mg PO DAILY 11/23/15 02/13/18 History 10 MG TAB*] Polyethylene Glycol 3350* 1 packet PO DAILY PRN 11/23/15 02/13/18 History [Miralax*] Torsemide TAB* [Demadex 20 MG*] 40 mg PO DAILY 11/23/15 02/13/18 History oxyCODONE/Acetamin 5/325 MG* 1 tab PO Q4H PRN 11/23/15 02/13/18 History [Percocet 5/325 TAB*] Allopurinol TAB* [Zyloprim 100 MG 100 mg PO DAILY 02/19/16 02/13/18 History TAB*] Cholecalciferol TAB* [Vitamin D 1,000 unit PO BID 02/19/16 02/13/18 History TAB*] Fluticasone-Salmeterol 500-50* 1 puff INH BID 02/19/16 02/13/18 History [Advair Diskus 500-50*] Insulin GLARGINE(*) [Lantus(*)] 105 units SUBCUT QPM 02/19/16 02/13/18 History Insulin GLARGINE(*) [Lantus(*)] 110 units SUBCUT QAM 02/19/16 02/13/18 History Cyanocobalamin [B-12 Dots] 500 mcg PO QAM 08/08/16 02/13/18 History Fluticasone NASAL SPRAY 50MCG* 2 spray BOTH NARES DAILY 08/08/16 02/13/18 History [Flonase NASAL SPRAY 50MCG*] Magnesium Hydroxide LIQ* [Milk of 30 ml PO DAILY 08/08/16 02/13/18 History Magnesia LIQ*] Mometasone 220 MCG MDI * [Asmanex 2 puff INH DAILY 08/08/16 02/13/18 History 220 MCG MDI *] Olopatadine 0.1% OPHTH (NF) 1 drop BOTH EYES BID 08/08/16 02/13/18 History Asher-3 Fatty Acids/Fish Oil 2 cap PO BID 08/08/16 02/13/18 History [Asher 3 1,000 mg Softgel] Spironolactone [Aldactone 50 MG-] 50 mg PO QAM 08/08/16 02/13/18 History metOLazone [Metolazone] 2.5 mg PO DAILY PRN 08/08/16 02/13/18 History Atorvastatin* [Lipitor*] 20 mg PO DAILY 07/08/17 02/13/18 History Insulin LISPRO* [HumaLOG*] 15 units SUBCUT TID WITH MEALS 07/08/17 02/13/18 History LoraTADine TAB(NF) [Claritin 10 MG 10 mg PO DAILY 07/08/17 02/13/18 History TAB(NF)] Omeprazole CAP* [Prilosec CAP* 20 40 mg PO BID 07/08/17 02/13/18 History MG] Pregabalin CAP(*) [Lyrica CAP(*)] 100 mg PO BID 07/08/17 02/13/18 History Warfarin TAB(*) [Coumadin TAB(*)] 5 mg PO DAILY 07/08/17 02/13/18 History Hospital Medications: Current Medications Acetaminophen (Tylenol Tab*) 650 mg PO Q6H PRN PRN Reason: FEVER/PAIN Albuterol (Ventolin Hfa Inhaler*) 2 puff INH Q4H PRN PRN Reason: WHEEZING Allopurinol (Zyloprim Tab*) 100 mg PO DAILY [facility] Last Admin: 02/15/18 09:01 Dose: 100 mg Atorvastatin Calcium (Lipitor*) 20 mg PO DAILY [facility] Last Admin: 02/15/18 09:00 Dose: 20 mg Docusate Sodium (Colace Cap*) 200 mg PO BID [facility] Last Admin: 02/15/18 09:07 Dose: Not Given Furosemide (Lasix Iv*) 40 mg IV 0800,1200 [facility] Last Admin: 02/15/18 13:28 Dose: 40 mg Insulin Glargine (Lantus(*)) 60 units SUBCUT 2100 [facility] Insulin Human Lispro (Humalog*) 0 units SUBCUT AC [facility] PRN Reason: Protocol Last Admin: 02/15/18 12:59 Dose: Not Given Insulin Human Lispro (Humalog*) 0 units SUBCUT ACHS [facility] PRN Reason: Protocol Last Admin: 02/15/18 13:28 Dose: 6 units Linagliptin (Tradjenta (Nf)) 5 mg PO DAILY [facility] Last Admin: 02/15/18 09:01 Dose: Not Given Melatonin (Melatonin (Nf)) 3 mg PO BEDTIME PRN; Protocol PRN Reason: Sleep Metoprolol Succinate (Toprol Xl Tab*) 100 mg PO BID [facility] Last Admin: 02/15/18 09:01 Dose: Not Given Mometasone Furoate/Formoterol Fumar (Dulera 200/5 Mdi*) 2 puff INH BID [facility] Last Admin: 02/15/18 10:15 Dose: 2 puff Montelukast Sodium (Singulair Tab*) 10 mg PO DAILY [facility] Last Admin: 02/15/18 09:00 Dose: 10 mg Omeprazole (Prilosec Cap*) 40 mg PO BID [facility] Last Admin: 02/15/18 08:59 Dose: 40 mg Ondansetron HCl (Zofran Odt Tab*) 4 mg PO Q6H PRN PRN Reason: n/v Last Admin: 02/14/18 21:22 Dose: 4 mg Oxycodone/Acetaminophen (Percocet 5/325 Tab*) 1 tab PO Q4H PRN PRN Reason: PAIN Last Admin: 02/15/18 13:27 Dose: 1 tab Pregabalin (Lyrica Cap(*)) 100 mg PO BID [facility] Last Admin: 02/15/18 09:00 Dose: 100 mg Spironolactone (Aldactone Tab*) 50 mg PO QAM [facility] Last Admin: 02/15/18 08:59 Dose: 50 mg Warfarin Sodium (Coumadin Tab(*)) 6 mg PO 1700 [facility] PRN Reason: Protocol Last Admin: 02/14/18 18:01 Dose: 6 mg Lab Data: Sodium 135 mmol/L (139-145) L 02/15/18 09:04 Potassium 4.4 mmol/L (3.5-5.0) 02/15/18 09:04 BUN 59 mg/dL (6-24) H 02/15/18 09:04 Creatinine 2.33 mg/dL (0.51-0.95) H 02/15/18 09:04 Hemoglobin A1c 9.1 % (4.0-5.6) H 02/12/18 21:51 Calcium 10.0 mg/dL (8.6-10.3) 02/15/18 09:04 AST 15 U/L (13-39) 02/12/18 21:51 ALT 10 U/L (7-52) 02/12/18 21:51 Vital Signs: Vital Signs 02/15/18 02/15/18 02/15/18 08:13 09:00 09:03 Temperature 36.7 C Pulse Rate 70 Respiratory 19 16 16 Rate Blood Pressure 100/59 (mmHg) O2 Sat by Pulse 93 Oximetry 02/15/18 13:27 Temperature Pulse Rate Respiratory 16 Rate Blood Pressure (mmHg) O2 Sat by Pulse Oximetry Height: 5 ft 4 in Weight: 112.173 kg Body Mass Index (BMI): 42.4 Physical Exam General Appearance: Positive: Alert, Oriented x3, Comfortable, Lying In Bed Dentition: Positive: Dental Decay, Multiple Missing teeth Cardiovascular: Positive: RRR Plan Of Care Patient's Next Step: Discussed with patient and family the importance of following a consistent carbohydrate diet. Sample meal plan and information on carbohydrate counting provided. Signs, symptoms, prevention, and treatment of hypoglycemia discussed. Emphasized the importance of following a consistent meal pattern and avoidance of skipped meals. Strongly advised patient to stop drinking soda. Pt would benefit from lifestyle modification and on-going medical nutrition therapy to help balance complex dietary needs (DM, CHF, on coumadin). Recommend that patient follow up as an outpatient at [facility]. Referral To: [facility] For Further OutPT Diabetic Training Diagnosis: Type II diabetes with hyperglycemia and hypoglycemia Discharge Plan: Outpatient follow up at [facility] Education Prior Diabetic Education: Yes Handouts Provided: Carbohydrate counting, 45 g. CHO meal plan, Living Well With Diabetes, My Plate , Healthy Snacks, Non-Starchy Vegetables Goals Goals: According to the [place] [employer], the following are your goals for Hemaglobin A1C, Blood Glucose. Hemaglobin A1C * <7.0% for most * <6.5% for "healthy" * <8.0% for "Less Healthy" Blood Glucose * Fasting Blood Glucose: 80-130 mg/dl * 2 Hour Post Prandial Glucose <180 mg/dl
[2018-02-15 16:32] LABS: Urine Appearance Clear; Urine Blood Negative (Negative); Urine Color Straw; Urine Ketones Negative (Negative); Urine Protein Negative (Negative); Urine Specific Gravity 1.008 (1.010-1.030); Urine Urobilinogen Negative (Negative)
--- NOTE | 2018-02-15 16:32 | PN ---
Subjective Date of Service: 02/15/18 Interval History: HOSPITALIST PROGRESS NOTE Patient seen and examined at bedside. Care reviewed and d/w Pao Lizama RN. She feels worse today. Chest pain and breathing are improved, but she has severe left flank pain, associated with nausea. Denies urinary symptoms today, but states she had dysuria prior to admission. Family History: Unchanged from Admission Social History: Unchanged from Admission Past Medical History: Unchanged from Admission Objective Active Medications: Acetaminophen (Tylenol Tab*) 650 mg PO Q6H PRN PRN Reason: FEVER/PAIN Albuterol (Ventolin Hfa Inhaler*) 2 puff INH Q4H PRN PRN Reason: WHEEZING Allopurinol (Zyloprim Tab*) 100 mg PO DAILY [facility] Last Admin: 02/15/18 09:01 Dose: 100 mg Atorvastatin Calcium (Lipitor*) 20 mg PO DAILY [facility] Last Admin: 02/15/18 09:00 Dose: 20 mg Docusate Sodium (Colace Cap*) 200 mg PO BID [facility] Last Admin: 02/15/18 09:07 Dose: Not Given Furosemide (Lasix Iv*) 40 mg IV 0800,1200 [facility] Last Admin: 02/15/18 13:28 Dose: 40 mg Insulin Glargine (Lantus(*)) 60 units SUBCUT 2100 [facility] Insulin Human Lispro (Humalog*) 0 units SUBCUT AC [facility] PRN Reason: Protocol Last Admin: 02/15/18 12:59 Dose: Not Given Insulin Human Lispro (Humalog*) 0 units SUBCUT ACHS [facility] PRN Reason: Protocol Last Admin: 02/15/18 13:28 Dose: 6 units Linagliptin (Tradjenta (Nf)) 5 mg PO DAILY [facility] Last Admin: 02/15/18 09:01 Dose: Not Given Melatonin (Melatonin (Nf)) 3 mg PO BEDTIME PRN; Protocol PRN Reason: Sleep Metoprolol Succinate (Toprol Xl Tab*) 100 mg PO BID [facility] Last Admin: 02/15/18 09:01 Dose: Not Given Mometasone Furoate/Formoterol Fumar (Dulera 200/5 Mdi*) 2 puff INH BID [facility] Last Admin: 02/15/18 10:15 Dose: 2 puff Montelukast Sodium (Singulair Tab*) 10 mg PO DAILY [facility] Last Admin: 02/15/18 09:00 Dose: 10 mg Morphine Sulfate (Morphine Vial*) 4 mg IV Q4H PRN PRN Reason: Moderate to Severe Pain Omeprazole (Prilosec Cap*) 40 mg PO BID [facility] Last Admin: 02/15/18 08:59 Dose: 40 mg Ondansetron HCl (Zofran Odt Tab*) 4 mg PO Q6H PRN PRN Reason: n/v Last Admin: 02/14/18 21:22 Dose: 4 mg Oxycodone/Acetaminophen (Percocet 5/325 Tab*) 1 tab PO Q4H PRN PRN Reason: PAIN Last Admin: 02/15/18 13:27 Dose: 1 tab Pregabalin (Lyrica Cap(*)) 100 mg PO BID [facility] Last Admin: 02/15/18 09:00 Dose: 100 mg Spironolactone (Aldactone Tab*) 50 mg PO QAM [facility] Last Admin: 02/15/18 08:59 Dose: 50 mg Warfarin Sodium (Coumadin Tab(*)) 6 mg PO 1700 [facility] PRN Reason: Protocol Last Admin: 02/14/18 18:01 Dose: 6 mg Vital Signs - 8 hr 02/15/18 15:21 Temperature 97.5 F Pulse Rate 69 Respiratory 18 Rate Blood Pressure 137/84 (mmHg) O2 Sat by Pulse 96 Oximetry Oxygen Devices in Use Now: None Appearance: Pleasant obese lady sitting up in bed in NAD. Eyes: No Scleral Icterus Ears/Nose/Mouth/Throat: Mucous Membranes Moist Neck: Trachea Midline Respiratory: Symmetrical Chest Expansion and Respiratory Effort, Clear to Auscultation Cardiovascular: RRR - Normal S1 and S2 Abdominal: NL Sounds; No Tenderness; No Distention, - - Left CVAT, no rash on the area Neurological: Alert and Oriented x 3, NL Muscle Strength and Tone Result Diagrams: 02/15/18 09:04 02/15/18 09:04 Assess/Plan/Problems-Billing Assessment: Mr. Suarez is a 77yo F with PMH of morbid obesity with BMI 42, type 2 DM, CKD stage 4, Afib, Vtach, pericardial tamponade, s/p pacer, CAD, diastolic CHF, HTN , HLD, SUKH, GERD, gout, anxiety, who presented to ED with c/o chest pain and dyspnea, found to have CHF exacerbation. - Patient Problems (1) Flank pain Comment: - Suspect it could be secondary to nephrolithiasis - check UA and CT abd/pelvis. - Pain management. (2) Acute exacerbation of congestive heart failure Comment: - Acute diastolic CHF exacerbation secondary to dietary non complaince most likely. - Change Furosemide to 40mg daily. - Monitor I/Os and daily weights - weight down to 247lbs and dyspnea is improved. (3) Chest pain Comment: - Patient had non obstructive CAD in 2009 and stress test in 2016 was suggestive of an apical infarct. - Stress test showed infero apical defect compatible with infarct and subtle periinfarct ischemia - Cardiology consult requested. (4) Type II diabetes mellitus Comment: - A1c is 9.1%. - Increase Lantus, continue Tradjenta, and Lispro SS. (5) Chronic renal disease, stage IV Comment: - At baseline. - Continue diuretics and monitor renal function. (6) Atrial fibrillation Comment: - Continue Metoprolol and Warfarin. (7) HTN (hypertension) Comment: - Continue Metoprolol, furosemide, aldactone. (8) DVT prophylaxis Comment: - SQ heparin until INR is therapeutic. (9) Full code status Status and Disposition: Inpatient for management of CHF exacerbation.
[2018-02-15] MEDS: Morphine VIAL* 4 MG/ML VIAL (1 ml vial) IV PRN ×2 (16:49→21:55)
--- NOTE | 2018-02-15 17:28 | RAD ---
INDICATION: LEFT flank pain. Assess for nephrolithiasis. Post cholecystectomy, appendectomy, hysterectomy. COMPARISON: August 13, 2015 CT. TECHNIQUE: Multidetector CT images were obtained from the lung bases to the ischial tuberosities. Evaluation of the viscera is limited without IV contrast. Multiplanar reformation. REPORT: RIGHT ventricular level pacemaker lead. Cardiomegaly. Negative for pericardial effusion. Mild bibasilar subsegmental atelectasis. Negative for pleural effusions. Post cholecystectomy. Negative for biliary dilatation. No CT abnormality of the unenhanced liver, pancreas, spleen. Negative for CT abnormality of the upper GI or small bowel. Normal appendix visualized extending medial from the cecum reference axial images 93-111. Mild to moderate diverticulosis of the colon without findings of acute diverticulitis. Negative for ascites or free air. Small fat-containing umbilical hernia without inflammatory change. Normal RIGHT adrenal gland. 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 Negative for urolithiasis or hydronephrosis. No conspicuous focal renal lesions. Negative for perinephric inflammatory stranding. Unremarkable partially distended urinary bladder. Post hysterectomy. Unremarkable adnexal regions. Negative for lymphadenopathy. Normal diameter abdominal aorta and iliac arteries. Physiologic distention of the IVC. Negative for suspicious focal osseous lesions. Lumbar sacral spine degenerative spondylosis and facet joint osteoarthritis. No significant change in grade 1 degenerative L4-L5 anterolisthesis. Small bone islands at the RIGHT femoral head. IMPRESSION: 1. Normal appendix visualized. 2. Mild to moderate colonic diverticulosis without findings of acute diverticulitis. 3. Negative for urolithiasis or hydronephrosis.
[2018-02-15] MEDS: Warfarin TAB(*) 4 MG PO SCH (17:50)
[2018-02-15] MEDS: Warfarin TAB(*) 3 MG PO SCH (17:50)
[2018-02-15] MEDS: Insulin GLARGINE(*) 1 UNITS UNIT SUBCUT SCH (20:38)
--- NOTE | 2018-02-15 21:36 | CONSULT ---
Subjective Date of Service: 02/15/18 Interval History: Admission Date: 02/12/18 Consult date 02/15/2018 Provider: Hospitalist PCP : Adrianna Lopez MD Senior Marketing Engineer: Dr. Waddell CC : chest pain Reason for consult HPI : Emi Suarez is a 78 year old woman with a history as below who presents with chest discomfort. It is described as pain under her left breast that is sharp and goes to the back in a rib costal distribution. It is entirely reproducible on examination with palpation and having her roll over from left to right side. It was happening evening every 30 minutes. Thursday evening it was bad enough she came to the ER as was lasting longer. She ruled out for ACS and this chest discomfort appears to be non-cardiac. She has a separate history of exertional chest pressure/dyspnea that has been longstanding and stable for many years that appears likely related to obesity/ diastolic HF/pulmonary HTN. These symptoms are stable but the dyspnea has been worse recently and Dr. Waddell recently increase her diuretic dosing on 2017 . She has had at least 3 angiograms to evaluate these sypmtoms including in 2004 and another in 10/2008 (after a stress test showed anteroseptal and basolateral ischemia - false positive) and another 12/2013 showing non- obstructive CAD. Patient ruled out for ACS with serial normal troponins (even in the presence of CKD). EKG non-interpretable due to paced rhythm. Vasodilator stress MPI with small sized, mild intensity apical defect on rest and stress imaging with normal wall motion on cine most consistent with breast attenuation artifact. PMedHx/surgical hx Morbid obesity insulin requiring DM2 Advanced CKD/HFpEF Pulm HTN, multifactorial AV node ablation and SJM dual chamber PM 10/2010 AFIB on coumadin Sleep apnea HTN HLD SUKH GERD anemia Allergies latex Allergy (Verified 02/12/18 19:38) Swelling shellfish derived Allergy (Verified 02/12/18 19:38) Swelling Of Face,Lips,& Throat cephalexin [From Keflex] Adverse Reaction (Mild, Verified 02/13/18 02:44) Facial Redness/Flushing dofetilide [From Tikosyn] Adverse Reaction (Verified 02/13/18 02:44) Palpitations Egg Derived Adverse Reaction (Verified 02/13/18 02:44) GI Upset enoxaparin [From Lovenox] Adverse Reaction (Verified 02/13/18 02:44) "blood too thin" SocHx : no tobacco, alcohol, or recreational drugs; lives with son; full code status FamHx : Mother passed in her 50s 2nd CVA w/ CAD & RA. Father passed in his 90s of CVA w/ CAD. Medications Active Medications: Acetaminophen (Tylenol Tab*) 650 mg PO Q6H PRN PRN Reason: FEVER/PAIN Albuterol (Ventolin Hfa Inhaler*) 2 puff INH Q4H PRN PRN Reason: WHEEZING Allopurinol (Zyloprim Tab*) 100 mg PO DAILY [facility] Last Admin: 02/15/18 09:01 Dose: 100 mg Atorvastatin Calcium (Lipitor*) 20 mg PO DAILY [facility] Last Admin: 02/15/18 09:00 Dose: 20 mg Docusate Sodium (Colace Cap*) 200 mg PO BID [facility] Last Admin: 02/15/18 19:27 Dose: Not Given Furosemide (Lasix Iv*) 40 mg IV 0800 [facility] Insulin Glargine (Lantus(*)) 60 units SUBCUT 2100 [facility] Last Admin: 02/15/18 20:38 Dose: 60 units Insulin Human Lispro (Humalog*) 0 units SUBCUT AC [facility] PRN Reason: Protocol Last Admin: 02/15/18 17:50 Dose: 6 units Insulin Human Lispro (Humalog*) 0 units SUBCUT ACHS [facility] PRN Reason: Protocol Last Admin: 02/15/18 20:37 Dose: 12 units Linagliptin (Tradjenta (Nf)) 5 mg PO DAILY [facility] Last Admin: 02/15/18 09:01 Dose: Not Given Melatonin (Melatonin (Nf)) 3 mg PO BEDTIME PRN; Protocol PRN Reason: Sleep Metoprolol Succinate (Toprol Xl Tab*) 100 mg PO BID [facility] Last Admin: 02/15/18 20:34 Dose: 100 mg Mometasone Furoate/Formoterol Fumar (Dulera 200/5 Mdi*) 2 puff INH BID [facility] Last Admin: 02/15/18 21:24 Dose: 2 puff Montelukast Sodium (Singulair Tab*) 10 mg PO DAILY [facility] Last Admin: 02/15/18 09:00 Dose: 10 mg Morphine Sulfate (Morphine Vial*) 4 mg IV Q4H PRN PRN Reason: Moderate to Severe Pain Last Admin: 02/15/18 16:49 Dose: 4 mg Omeprazole (Prilosec Cap*) 40 mg PO BID [facility] Last Admin: 02/15/18 20:34 Dose: 40 mg Ondansetron HCl (Zofran Odt Tab*) 4 mg PO Q6H PRN PRN Reason: n/v Last Admin: 02/14/18 21:22 Dose: 4 mg Oxycodone/Acetaminophen (Percocet 5/325 Tab*) 1 tab PO Q4H PRN PRN Reason: PAIN Last Admin: 02/15/18 19:26 Dose: 1 tab Pregabalin (Lyrica Cap(*)) 100 mg PO BID [facility] Last Admin: 02/15/18 20:35 Dose: 100 mg Spironolactone (Aldactone Tab*) 50 mg PO QAM [facility] Last Admin: 02/15/18 08:59 Dose: 50 mg Warfarin Sodium (Coumadin Tab(*)) 3 mg PO 1700 [facility] PRN Reason: Protocol Last Admin: 02/15/18 17:50 Dose: 3 mg Warfarin Sodium (Coumadin Tab(*)) 4 mg PO 1700 [facility] Last Admin: 02/15/18 17:50 Dose: 4 mg Home Medications: AlbuterolHFA INHALER* [Ventolin HFA Inhaler*] 2 puff INH Q4H PRN 11/23/15 [ History Confirmed 02/13/18] Linagliptin (NF) [Tradjenta (NF)] 5 mg PO DAILY 11/23/15 [History Confirmed ] Metoprolol Succinate XL TAB* [Toprol XL TAB*] 100 mg PO BID 11/23/15 [History Confirmed 02/13/18] Montelukast Sodium TAB* [Singulair 10 MG TAB*] 10 mg PO DAILY 11/23/15 [History Confirmed 02/13/18] Polyethylene Glycol 3350* [Miralax*] 1 packet PO DAILY PRN 11/23/15 [History Confirmed 02/13/18] Torsemide TAB* [Demadex 20 MG*] 40 mg PO DAILY 11/23/15 [History Confirmed 02/13] oxyCODONE/Acetamin 5/325 MG* [Percocet 5/325 TAB*] 1 tab PO Q4H PRN 11/23/15 [ History Confirmed 02/13/18] Allopurinol TAB* [Zyloprim 100 MG TAB*] 100 mg PO DAILY 02/19/16 [History Confirmed 02/13/18] Cholecalciferol TAB* [Vitamin D TAB*] 1,000 unit PO BID 02/19/16 [History Confirmed 02/13/18] Fluticasone-Salmeterol 500-50* [Advair Diskus 500-50*] 1 puff INH BID 02/19/16 [ History Confirmed 02/13/18] Insulin GLARGINE(*) [Lantus(*)] 105 units SUBCUT QPM 02/19/16 [History Confirmed 02/13/18] Insulin GLARGINE(*) [Lantus(*)] 110 units SUBCUT QAM 02/19/16 [History Confirmed 02/13/18] Cyanocobalamin [B-12 Dots] 500 mcg PO QAM 08/08/16 [History Confirmed 02/13/18] Fluticasone NASAL SPRAY 50MCG* [Flonase NASAL SPRAY 50MCG*] 2 spray BOTH NARES DAILY 08/08/16 [History Confirmed 02/13/18] Magnesium Hydroxide LIQ* [Milk of Magnesia LIQ*] 30 ml PO DAILY 08/08/16 [ History Confirmed 02/13/18] Mometasone 220 MCG MDI * [Asmanex 220 MCG MDI *] 2 puff INH DAILY 08/08/16 [ History Confirmed 02/13/18] Olopatadine 0.1% OPH (NF) 1 drop BOTH EYES BID 08/08/16 [History Confirmed ] [place]-3 Fatty Acids/Fish Oil [[place] 3 1,000 mg Softgel] 2 cap PO BID 08/08/16 [ History Confirmed 02/13/18] Spironolactone [Aldactone 50 MG-] 50 mg PO QAM 08/08/16 [History Confirmed 02/13] metOLazone [Metolazone] 2.5 mg PO DAILY PRN 08/08/16 [History Confirmed 02/13/18 ] Atorvastatin* [Lipitor*] 20 mg PO DAILY 07/08/17 [History Confirmed 02/13/18] Insulin LISPRO* [HumaLOG*] 15 units SUBCUT TID WITH MEALS 07/08/17 [History Confirmed 02/13/18] LoraTADine TAB(NF) [Claritin 10 MG TAB(NF)] 10 mg PO DAILY 07/08/17 [History Confirmed 02/13/18] Omeprazole CAP* [Prilosec CAP* 20 MG] 40 mg PO BID 07/08/17 [History Confirmed 02/13/18] Pregabalin CAP(*) [Lyrica CAP(*)] 100 mg PO BID 07/08/17 [History Confirmed ] Warfarin TAB(*) [Coumadin TAB(*)] 5 mg PO DAILY 07/08/17 [History Confirmed ] Review of Systems - Measurements Intake and Output: Intake and Output Last 24 Hours 02/13/18 02/14/18 02/15/18 02/16/18 06:59 06:59 06:59 06:59 Intake Total 9155 398 7436 Output Total 2300 1350 2650 Balance -806 -640 -1010 Weight 247 lb 3.2 oz 247 lb 4.8 oz 247 lb 4.8 oz Intake: IV Fluids 24 NS (0.9%) 20 IVPB 30 NS (0.9%) 30 Oral 2217 741 1632 Output: Urine 2300 1350 2650 Other: # Bowel Movements 0 1 # Voids 1 2 - Review of Systems Constitutional Symptoms: Positive: Weakness, Fatigue, Other Negative: Weight Loss, Fever, Night Sweats Dermatology: Negative: Rash, Skin Lesions HEENT: Negative: Change in Hearing, Vertigo Eyes: Negative: Change in Vision, Double Vision Thyroid: Positive: Palpitations Negative: Cold Intolerance, Heat Intolerance, Sweatiness, Weight Loss, Weight Gain Pulmonary: Positive: Shortness of Breath Negative: Sputum, Hemoptysis, Wheezing, COPD, Asthma Cardiology: Positive: Chest Pain, Shortness of Breath, Palpitations, Swelling of Ankles, Edema Gastroenterology: Negative: Abdominal Pain, Nausea, Vomiting, Anorexia, Heartburn, Constipation , Diarrhea, Haematemesis, Melena Genital - Urinary: Negative: Dysuria, Hematuria Musculoskeletal: Negative: Joint Pain, Joint Stiffness, Osteoporosis Endocrinology: Positive: Obesity, Diabetes, Hyperglycemia Negative: Calluses, Polydipsia, Polyuria, Gynecomastia, Pituitary Disease Hematologic/Lymphatic: Positive: Use of Anticoagulant Negative: Hx Leukemia, Hx Lymphoma Neurology: Negative: Diplopia, Dizziness, Change in Speech, Change in Walking, Hx of Stroke\\TIA, Hx Seizures Psychiatry: Negative: Adhedonia, Unusual Anxiety, Hypomania Allergic/Immunologic: Positive: Athsma Negative: Hx HIV, Immunocompromise Review of Systems Statement: All other review of systems negative, unless stated above. Objective Vital Signs: Temp Pulse Resp BP Pulse Ox 97.3 F 70 14 140/70 92 02/15/18 19:43 02/15/18 21:24 02/15/18 21:24 02/15/18 19:43 02/15/18 21:24 Oxygen Devices in Use Now: None Appearance: obese, nad Ears/Nose/Mouth/Throat: Clear Oropharnyx Neck: Trachea Midline, - - uncertain jvp Respiratory: Symmetrical Chest Expansion and Respiratory Effort, - - distant breath sounds Cardiovascular: RRR, - - no significant murmur, mild edema Abdominal: NL Sounds; No Tenderness; No Distention Extremities: No Clubbing, Cyanosis, - Skin: No Rash or Ulcers Neurological: Alert and Oriented x 3 Laboratory Results: 02/15/18 09:04 02/15/18 09:04 INR (Anticoag Therapy) 1.39 (0.77-1.02) H 02/15/18 09:04 Total Bilirubin 0.50 mg/dL (0.2-1.0) 02/12/18 21:51 AST 15 U/L (13-39) 02/12/18 21:51 ALT 10 U/L (7-52) 02/12/18 21:51 Alkaline Phosphatase 69 U/L (34-104) 02/12/18 21:51 Total Protein 7.8 g/dL (6.4-8.9) 02/12/18 21:51 Albumin 4.0 g/dL (3.2-5.2) 02/12/18 21:51 Globulin 3.8 g/dL (2-4) 02/12/18 21:51 Albumin/Globulin Ratio 1.1 (1-3) 02/12/18 21:51 02/12/18 02/13/18 02/13/18 21:51 00:03 02:54 Troponin I 0.00 0.00 0.00 02/13/18 06:39 Troponin I 0.00 Diagnostic Imaging: ECHO (10/2015): Conclusions: The study is technically limited due to patient body habitus. Echocardiographic imaging enhancement agent (Definity) was used to better define LV endocardium. The left ventricular chamber size is normal. Mild concentric left ventricular hypertrophy is observed. The estimated ejection fraction is 55-60%. The left atrium is moderately dilated. The right ventricle is not well visualized although appears to be mildly dilated with mildly reduced systolic function. The right atrium is mildly dilated. There is evidence of an atrial septal aneurysm. There is mild tricuspid and mitral regurgitation that may be underestimated.There is evidence of mild to moderate pulmonary hypertension. RHC 10/2016: Mild pHTN, PCWP 8 mmhg RHC/LHC Moderate pHTN, non-ischemic cardiomyopathy EKG Data: ekg today afib, v-paced Assessment/Plan Patient admitted with non-cardiac reproducible costal pain. She has a longstanding history of exertional chest discomfort/dyspnea with multiple unrevealing [facility] invasive evaluations in the past and a normal stress test this admission - Agree with current plan of care of symptomatic treatment of her non-cardiac chest discomfort - Agree with cautious diuresis, would change back to home diuretic regimen on discharge - Patients diabetes uncontrolled at 9.1, she was counseled that failure to obtain better diabetes control and change to a heart healthy, sodium reduced diet may lead to increased risk of things including but not limited to heart attack, stroke and . She expressed understanding of this. - Patient should follow up with Dr. Lopez and/or Dr. Waddell after discharge Thank you for allowing me to participate in the cardiovascular care of this patient. Please do not hesitate to contact me with questions or concerns/
[2018-02-16] MEDS: Morphine VIAL* 4 MG/ML VIAL (1 ml vial) IV PRN ×4 (04:22→20:51)
[2018-02-16 06:31] LABS: INR 1.61 (0.77-1.02)
[2018-02-16 06:34] LABS: EGFR Non-African American 21.9 (>60)
[2018-02-16] MEDS: oxyCODONE/Acetamin 5/325 MG* TAB PO PRN ×4 (06:47→19:53)
--- NOTE | 2018-02-16 08:24 | PN ---
Subjective Date of Service: 02/16/18 Interval History: HOSPITALIST PROGRESS NOTE Patient seen and examined at bedside. Care reviewed with Florence Pringle RN. Her left sided pain is less intense today and she was able to rest last night. Breathing is easier. Family History: Unchanged from Admission Social History: Unchanged from Admission Past Medical History: Unchanged from Admission Objective Active Medications: Acetaminophen (Tylenol Tab*) 650 mg PO Q6H PRN PRN Reason: FEVER/PAIN Albuterol (Ventolin Hfa Inhaler*) 2 puff INH Q4H PRN PRN Reason: WHEEZING Allopurinol (Zyloprim Tab*) 100 mg PO DAILY [facility] Last Admin: 02/15/18 09:01 Dose: 100 mg Atorvastatin Calcium (Lipitor*) 20 mg PO DAILY [facility] Last Admin: 02/15/18 09:00 Dose: 20 mg Docusate Sodium (Colace Cap*) 200 mg PO BID [facility] Last Admin: 02/15/18 19:27 Dose: Not Given Furosemide (Lasix Iv*) 40 mg IV 0800 [facility] Insulin Glargine (Lantus(*)) 60 units SUBCUT 2100 [facility] Last Admin: 02/15/18 20:38 Dose: 60 units Insulin Human Lispro (Humalog*) 0 units SUBCUT AC [facility] PRN Reason: Protocol Last Admin: 02/15/18 17:50 Dose: 6 units Insulin Human Lispro (Humalog*) 0 units SUBCUT ACHS [facility] PRN Reason: Protocol Last Admin: 02/15/18 20:37 Dose: 12 units Linagliptin (Tradjenta (Nf)) 5 mg PO DAILY [facility] Last Admin: 02/15/18 09:01 Dose: Not Given Melatonin (Melatonin (Nf)) 3 mg PO BEDTIME PRN; Protocol PRN Reason: Sleep Metoprolol Succinate (Toprol Xl Tab*) 100 mg PO BID [facility] Last Admin: 02/15/18 20:34 Dose: 100 mg Mometasone Furoate/Formoterol Fumar (Dulera 200/5 Mdi*) 2 puff INH BID [facility] Last Admin: 02/15/18 21:24 Dose: 2 puff Montelukast Sodium (Singulair Tab*) 10 mg PO DAILY [facility] Last Admin: 02/15/18 09:00 Dose: 10 mg Morphine Sulfate (Morphine Vial*) 4 mg IV Q4H PRN PRN Reason: Moderate to Severe Pain Last Admin: 02/16/18 04:22 Dose: 4 mg Omeprazole (Prilosec Cap*) 40 mg PO BID [facility] Last Admin: 02/15/18 20:34 Dose: 40 mg Ondansetron HCl (Zofran Odt Tab*) 4 mg PO Q6H PRN PRN Reason: n/v Last Admin: 02/14/18 21:22 Dose: 4 mg Oxycodone/Acetaminophen (Percocet 5/325 Tab*) 1 tab PO Q4H PRN PRN Reason: PAIN Last Admin: 02/16/18 06:47 Dose: 1 tab Pregabalin (Lyrica Cap(*)) 100 mg PO BID [facility] Last Admin: 02/15/18 20:35 Dose: 100 mg Spironolactone (Aldactone Tab*) 50 mg PO QAM [facility] Last Admin: 02/15/18 08:59 Dose: 50 mg Warfarin Sodium (Coumadin Tab(*)) 3 mg PO 1700 [facility] PRN Reason: Protocol Last Admin: 02/15/18 17:50 Dose: 3 mg Warfarin Sodium (Coumadin Tab(*)) 4 mg PO 1700 [facility] Last Admin: 02/15/18 17:50 Dose: 4 mg Vital Signs - 8 hr 02/16/18 02/16/18 02/16/18 03:34 03:59 04:22 Temperature 97.9 F Pulse Rate 70 Respiratory 18 17 Rate Blood Pressure 125/60 (mmHg) O2 Sat by Pulse 96 Oximetry Oxygen Devices in Use Now: None Appearance: Pleasant lady sitting up in bed in [facility]. Eyes: No Scleral Icterus Ears/Nose/Mouth/Throat: Mucous Membranes Moist Neck: Trachea Midline Respiratory: Symmetrical Chest Expansion and Respiratory Effort, Clear to Auscultation Cardiovascular: - - Normal S1 and S2, irregular Extremities: No Edema Neurological: Alert and Oriented x 3, NL Muscle Strength and Tone Result Diagrams: 02/15/18 09:04 02/16/18 06:03 Assess/Plan/Problems-Billing Assessment: Mr. Suarez is a 77yo F with PMH of morbid obesity with BMI 42, type 2 DM, CKD stage 4, Afib, Vtach, pericardial tamponade, s/p pacer, CAD, diastolic CHF, HTN , HLD, SUKH, GERD, gout, anxiety, who presented to ED with c/o chest pain and dyspnea, found to have CHF exacerbation. - Patient Problems (1) Flank pain Comment: - CT was negative for nephrolithiasis and UA showed only glucose. - She has some pain on palpation, but pain is worse with deep inspiration. Her INR was subtherapeutic on admission - cannot have CTA chest due to CKD, will check V/Q scan to r/o PE. - Continue pain management and add Lidoderm patch. (2) Acute exacerbation of congestive heart failure Comment: - Acute diastolic CHF exacerbation secondary to dietary non complaince most likely. - Change Furosemide to 40mg daily. - Monitor I/Os and daily weights - weight down to 245lbs and dyspnea is improved. (3) Chest pain Comment: - Patient had non obstructive CAD in 2008 and stress test in 2016 was suggestive of an apical infarct. - Stress test showed infero apical defect compatible with infarct and subtle periinfarct ischemia - Cardiology consult appreciated. (4) Type II diabetes mellitus Comment: - A1c is 9.1%. - Continue Lantus, Tradjenta, and Lispro SS. (5) Chronic renal disease, stage IV Comment: - At baseline. - Continue diuretics and monitor renal function. (6) Atrial fibrillation Comment: - Continue Metoprolol and Warfarin. (7) HTN (hypertension) Comment: - Continue Metoprolol, furosemide, aldactone. (8) DVT prophylaxis Comment: - SQ heparin until INR is therapeutic. (9) Full code status Status and Disposition: Inpatient for management of CHF exacerbation.
[2018-02-16] MEDS: Mometasone/Formoter 200/5 MDI INH SCH ×2 (08:25→20:17)
[2018-02-16] MEDS: Insulin LISPRO* 1 UNITS UNIT SUBCUT SCH ×7 (09:18→20:51)
[2018-02-16] MEDS: Furosemide IV* 10 MG/ML VIAL (40 MG) IV SCH (09:18)
[2018-02-16] MEDS: Lidocaine PATCH 5%* 1 PATCH TRANSDERM SCH (09:25)
[2018-02-16] MEDS: Spironolactone TAB* 25 MG PO SCH (09:29)
[2018-02-16] MEDS: Omeprazole CAP* 20 MG PO SCH ×2 (09:29→19:52)
[2018-02-16] MEDS: Atorvastatin* 20 MG TAB PO SCH (09:29)
[2018-02-16] MEDS: Docusate CAP* 100 MG PO SCH ×2 (09:29→20:38)
[2018-02-16] MEDS: Allopurinol TAB* 100 MG PO SCH (09:29)
[2018-02-16] MEDS: Pregabalin CAP(*) 100 MG PO SCH ×2 (09:29→19:52)
[2018-02-16] MEDS: Metoprolol Succinate XL TAB* 100 MG PO SCH ×2 (09:29→19:51)
[2018-02-16] MEDS: Montelukast Sodium TAB* 10 MG PO SCH (09:29)
[2018-02-16] MEDS: LINAGLIPTIN 5 MG PO SCH (09:30)
[2018-02-16] MEDS ORDERED: Morphine VIAL* 4 MG/ML VIAL (1 ml vial) IV ONE (11:44)
[2018-02-16] MEDS: Ondansetron ODT TAB* 4 MG PO PRN (11:54)
[2018-02-16] MEDS ORDERED: HYDROmorphone INJ* 2 MG/ML CARPUJECT SYRINGE IV SLOW PU ONE (12:27)
[2018-02-16 14:01] LABS: Hematocrit 38 % (35-47); Hemoglobin 12.2 g/dl (12.0-16.0); Mean Corpuscular HGB Conc 32 g/dl (31-36); Mean Corpuscular Hemoglobin 28 pg (27-31); Mean Corpuscular Volume 88 fL (80-97); Mean Platelet Volume 9.3 um3 (7.4-10.4); Platelet Count 151 10^3/ul (150-450); Red Blood Count 4.33 10^6/ul (4.0-5.4); Red Cell Distribution Width 19 % (10.5-15); White Blood Count 8.5 10^3/ul (3.5-10.8)
[2018-02-16 14:45] LABS: ABS Basophils 0.1 10^3/ul (0-0.2); ABS Eosinophils 0.1 10^3/ul (0-0.6); ABS Lymphocytes 2.4 10^3/ul (1.0-4.8); ABS Neutrophils 4.8 10^3/ul (1.5-7.7); ABS Nucleated RBC 0.1 10^3/ul; Eosinophil % 1.7 % (0-6); Lymphocyte % 28.6 % (25-47); Nucleated Red Blood Cells % 1.1
[2018-02-16] MEDS: Warfarin TAB(*) 4 MG PO SCH (18:15)
[2018-02-16] MEDS: Warfarin TAB(*) 3 MG PO SCH (18:15)
[2018-02-16] MEDS: Insulin GLARGINE(*) 1 UNITS UNIT SUBCUT SCH (20:51)
[2018-02-16] MEDS: Lidocaine Patch REMOVE* 1 NOTE MISC SCH (20:52)
[2018-02-17] MEDS: Morphine VIAL* 4 MG/ML VIAL (1 ml vial) IV PRN ×4 (00:02→19:45)
[2018-02-17 06:22] LABS: ABS Basophils 0.1 10^3/ul (0-0.2); ABS Eosinophils 0.1 10^3/ul (0-0.6); ABS Monocytes 1.1 10^3/ul (0-0.8); ABS Neutrophils 5.3 10^3/ul (1.5-7.7); ABS Nucleated RBC 0.1 10^3/ul; Eosinophil % 1.3 % (0-6); Hematocrit 36 % (35-47); Hemoglobin 11.4 g/dl (12.0-16.0); Mean Corpuscular HGB Conc 32 g/dl (31-36); Mean Corpuscular Hemoglobin 28 pg (27-31); Mean Corpuscular Volume 88 fL (80-97); Mean Platelet Volume 8.9 um3 (7.4-10.4); Nucleated Red Blood Cells % 0.5; Platelet Count 145 10^3/ul (150-450); Red Cell Distribution Width 20 % (10.5-15); White Blood Count 8.7 10^3/ul (3.5-10.8)
[2018-02-17 06:34] LABS: INR 1.8 (0.77-1.02)
[2018-02-17] MEDS: Spironolactone TAB* 25 MG PO SCH (07:57)
[2018-02-17] MEDS: Allopurinol TAB* 100 MG PO SCH (07:58)
[2018-02-17] MEDS: Omeprazole CAP* 20 MG PO SCH ×2 (07:58→20:45)
[2018-02-17] MEDS: Atorvastatin* 20 MG TAB PO SCH (07:58)
[2018-02-17] MEDS: Pregabalin CAP(*) 100 MG PO SCH ×2 (07:58→20:46)
[2018-02-17] MEDS: oxyCODONE/Acetamin 5/325 MG* TAB PO PRN ×3 (07:58→17:38)
[2018-02-17] MEDS: Montelukast Sodium TAB* 10 MG PO SCH (07:58)
[2018-02-17] MEDS: Metoprolol Succinate XL TAB* 100 MG PO SCH ×2 (07:58→20:47)
[2018-02-17] MEDS: Lidocaine PATCH 5%* 1 PATCH TRANSDERM SCH (07:59)
[2018-02-17] MEDS: Furosemide IV* 10 MG/ML VIAL (40 MG) IV SCH (07:59)
[2018-02-17] MEDS: Docusate CAP* 100 MG PO SCH ×2 (07:59→20:49)
[2018-02-17] MEDS: LINAGLIPTIN 5 MG PO SCH (07:59)
[2018-02-17] MEDS: Mometasone/Formoter 200/5 MDI INH SCH ×2 (08:17→20:33)
[2018-02-17] MEDS: Insulin LISPRO* 1 UNITS UNIT SUBCUT SCH ×7 (09:11→20:49)
--- NOTE | 2018-02-17 11:23 | RAD ---
HISTORY: Chest pain COMPARISON: Chest x-ray dated February 17, 2018 TECHNIQUE: Pulmonary ventilation/perfusion scintigraphy was performed with dynamic cine images and multiple planar images. DOSE: Ventilation: Xenon-133 17.3 millicuries, administered at 10:30 AM on February 17, 2018 Perfusion: Technetium 99m microaggregated albumin 6.13 millicuries, administered at 10:35 AM on February 17, 2018 FINDINGS: Ventilation: There is homogeneous ventilation. Perfusion: There is homogeneous perfusion. IMPRESSION: HOMOGENEOUS PERFUSION AND VENTILATION. NEGATIVE VQ SCAN. CPT II Codes: [id number]
--- NOTE | 2018-02-17 11:56 | RAD ---
HISTORY: Chest pain, COMPARISONS: February 12, 2013 VIEWS: 4: Frontal dual-energy and lateral views of the chest. FINDINGS: CARDIOMEDIASTINAL SILHOUETTE: The cardiac silhouette is enlarged. The cardiomediastinal silhouette is otherwise normal. SALUD: The salud are normal. PLEURA: The costophrenic angles are sharp. No pleural abnormalities are noted. LUNG PARENCHYMA: The lungs are clear. ABDOMEN: The upper abdomen is clear. There is no subphrenic gas. BONES AND SOFT TISSUES: No bone or soft tissue abnormalities are noted. OTHER: A left-sided pacemaker is noted. IMPRESSION: CARDIOMEGALY
[2018-02-17] MEDS: Polyethylene Glycol 3350* 17 GM PACKET PO SCH ×2 (13:23→20:43)
--- NOTE | 2018-02-17 16:16 | PN ---
Subjective Date of Service: 02/17/18 Interval History: HOSPITALIST PROGRESS NOTE Patient seen and examined at bedside. Care reviewed and d/w Florence Pringle RN. Her left flank pain continues, mild relief with Morphine. Denies dyspnea, palpitations. Family History: Unchanged from Admission Social History: Unchanged from Admission Past Medical History: Unchanged from Admission Objective Active Medications: Acetaminophen (Tylenol Tab*) 650 mg PO Q6H PRN PRN Reason: FEVER/PAIN Albuterol (Ventolin Hfa Inhaler*) 2 puff INH Q4H PRN PRN Reason: WHEEZING Allopurinol (Zyloprim Tab*) 100 mg PO DAILY [facility] Last Admin: 02/17/18 07:58 Dose: 100 mg Atorvastatin Calcium (Lipitor*) 20 mg PO DAILY [facility] Last Admin: 02/17/18 07:58 Dose: 20 mg Docusate Sodium (Colace Cap*) 200 mg PO BID [facility] Last Admin: 02/17/18 07:59 Dose: Not Given Furosemide (Lasix Iv*) 40 mg IV 0800 [facility] Last Admin: 02/17/18 07:59 Dose: 40 mg Insulin Glargine (Lantus(*)) 60 units SUBCUT 2100 [facility] Last Admin: 02/16/18 20:51 Dose: 60 units Insulin Human Lispro (Humalog*) 0 units SUBCUT AC [facility] PRN Reason: Protocol Last Admin: 02/17/18 13:22 Dose: 5 units Insulin Human Lispro (Humalog*) 0 units SUBCUT ACHS [facility] PRN Reason: Protocol Last Admin: 02/17/18 13:22 Dose: 3 units Lidocaine (Lidoderm 5% Patch*) 1 patch TRANSDERM DAILY [facility] Last Admin: 02/17/18 07:59 Dose: 1 patch Linagliptin (Tradjenta (Nf)) 5 mg PO DAILY [facility] Last Admin: 02/17/18 07:59 Dose: 5 mg Magnesium Hydroxide (Milk Of Magnesia Liq*) 30 ml PO Q6H PRN PRN Reason: CONSTIPATION Melatonin (Melatonin (Nf)) 3 mg PO BEDTIME PRN; Protocol PRN Reason: Sleep Metoprolol Succinate (Toprol Xl Tab*) 100 mg PO BID [facility] Last Admin: 02/17/18 07:58 Dose: 100 mg Mometasone Furoate/Formoterol Fumar (Dulera 200/5 Mdi*) 2 puff INH BID [facility] Last Admin: 02/17/18 08:17 Dose: 2 puff Montelukast Sodium (Singulair Tab*) 10 mg PO DAILY [facility] Last Admin: 02/17/18 07:58 Dose: 10 mg Morphine Sulfate (Morphine Vial*) 4 mg IV Q3H PRN PRN Reason: Moderate to Severe Pain Last Admin: 02/17/18 13:22 Dose: 4 mg Omeprazole (Prilosec Cap*) 40 mg PO BID [facility] Last Admin: 02/17/18 07:58 Dose: 40 mg Ondansetron HCl (Zofran Odt Tab*) 4 mg PO Q6H PRN PRN Reason: n/v Last Admin: 02/16/18 11:54 Dose: 4 mg Oxycodone/Acetaminophen (Percocet 5/325 Tab*) 1 tab PO Q4H PRN PRN Reason: PAIN Last Admin: 02/17/18 12:18 Dose: 1 tab Pharmacy Profile Note (Lidocaine Patch Remove*) 1 note N/A 2100 [facility] Last Admin: 02/16/18 20:52 Dose: Not Given Polyethylene Glycol/Electrolytes (Miralax*) 17 gm PO 0800,2100 [facility] Last Admin: 02/17/18 13:23 Dose: 17 gm Pregabalin (Lyrica Cap(*)) 100 mg PO BID [facility] Last Admin: 02/17/18 07:58 Dose: 100 mg Spironolactone (Aldactone Tab*) 50 mg PO QAM [facility] Last Admin: 02/17/18 07:57 Dose: 50 mg Warfarin Sodium (Coumadin Tab(*)) 3 mg PO 1700 [facility] PRN Reason: Protocol Last Admin: 02/16/18 18:15 Dose: 3 mg Warfarin Sodium (Coumadin Tab(*)) 4 mg PO 1700 [facility] Last Admin: 02/16/18 18:15 Dose: 4 mg Vital Signs - 8 hr 02/17/18 02/17/18 02/17/18 08:18 09:11 10:37 Temperature Pulse Rate 76 Respiratory 16 18 18 Rate Blood Pressure (mmHg) O2 Sat by Pulse 87 Oximetry 02/17/18 02/17/18 02/17/18 11:48 12:18 13:22 Temperature 97.8 F Pulse Rate 70 Respiratory 20 18 181 Rate Blood Pressure 114/62 (mmHg) O2 Sat by Pulse 94 Oximetry Oxygen Devices in Use Now: None Appearance: Morbid obese lady sitting up in bed in NAD, but appears to be comfortable. Eyes: No Scleral Icterus Ears/Nose/Mouth/Throat: Mucous Membranes Moist Neck: Trachea Midline Respiratory: Symmetrical Chest Expansion and Respiratory Effort, Clear to Auscultation Cardiovascular: - - Normal S1 and S2, irregular Abdominal: NL Sounds; No Tenderness; No Distention Neurological: Alert and Oriented x 3, NL Muscle Strength and Tone Lines/Tubes/Other Access: Clean, Dry and Intact Peripheral IV Nutrition: Taking PO's Result Diagrams: 02/17/18 05:57 02/16/18 06:03 Assess/Plan/Problems-Billing Assessment: Mr. Suarez is a 77yo F with PMH of morbid obesity with BMI 42, type 2 DM, CKD stage 4, Afib, Vtach, pericardial tamponade, s/p pacer, CAD, diastolic CHF, HTN , HLD, SUKH, GERD, gout, anxiety, who presented to ED with c/o chest pain and dyspnea, found to have CHF exacerbation. - Patient Problems (1) Flank pain Comment: - CT was negative for nephrolithiasis and UA showed only glucose. - She has some pain on palpation, but pain is worse with deep inspiration. Her INR was subtherapeutic on admission - V/Q scan negative for PE. - No rash or palpable mass, but does have pain on palpation - suspect musculoskeletal etiology. - Pain management consult requested. (2) Acute exacerbation of congestive heart failure Comment: - Acute diastolic CHF exacerbation secondary to dietary non complaince most likely. - Change Furosemide to 40mg daily. - Monitor I/Os and daily weights - weight down to 245lbs and dyspnea is improved. - D/c Telemetry. (3) Chest pain Comment: - Patient had non obstructive CAD in 2009 and stress test in 2016 was suggestive of an apical infarct. - Stress test showed infero apical defect compatible with infarct and subtle periinfarct ischemia - Cardiology consult appreciated. (4) Type II diabetes mellitus Comment: - A1c is 9.1%. - Continue Lantus, Tradjenta, and Lispro SS. (5) Chronic renal disease, stage IV Comment: - At baseline. - Continue diuretics and monitor renal function. (6) Atrial fibrillation Comment: - Continue Metoprolol and Warfarin. (7) HTN (hypertension) Comment: - Continue Metoprolol, furosemide, aldactone. (8) DVT prophylaxis Comment: - SQ heparin until INR is therapeutic. (9) Full code status Status and Disposition: Inpatient for management of CHF exacerbation and pain management.
[2018-02-17] MEDS: Warfarin TAB(*) 3 MG PO SCH (17:39)
[2018-02-17] MEDS: Warfarin TAB(*) 4 MG PO SCH (17:39)
--- NOTE | 2018-02-17 18:18 | CONSULT ---
Consult Consult: INPATIENT PAIN CONSULTATION Emi Forte is a 77 year old female with a medical history significant for diabetes, coronary artery disease, atrial fibrillation and chronic kidney disease. About 6 days ago, she states she developed left sided rib pain radiating to her chest. She hoped it would pass on its own. After 2 days, she came to the ER. CXR showed she was in pulmonary edema. She was admitted and diuresed with Lasix. She had an echo that was not revealing. As she diuresed her chest pain lessened and her breathing was easier. She still had left sided pain over her lower ribcage. A CT scan of the Abd/Pelvis did not show any masses or renal stones. She had a V/Q scan of her lungs which was negative for a PE (She was anticoagulated for her a fib). There was no rash seen to suggest zoster. She was given a Lidoderm patch and oxycodone but still reports significant pain. PAST MEDICAL HISTORY: Diabetes (HbA1C was >9), CAD, A fib, CKD, Stage 4, COPD, SUKH, CHF, Pacemaker placement, GERD ALLERGIES: Lovenox, Cephalexin, Dofetilide, Latex Current Medications Acetaminophen (Tylenol Tab*) 650 mg PO Q6H PRN PRN Reason: FEVER/PAIN Albuterol (Ventolin Hfa Inhaler*) 2 puff INH Q4H PRN PRN Reason: WHEEZING Allopurinol (Zyloprim Tab*) 100 mg PO DAILY [facility] Last Admin: 02/17/18 07:58 Dose: 100 mg Atorvastatin Calcium (Lipitor*) 20 mg PO DAILY [facility] Last Admin: 02/17/18 07:58 Dose: 20 mg Docusate Sodium (Colace Cap*) 200 mg PO BID [facility] Last Admin: 02/17/18 07:59 Dose: Not Given Furosemide (Lasix Iv*) 40 mg IV 0800 [facility] Last Admin: 02/17/18 07:59 Dose: 40 mg Insulin Glargine (Lantus(*)) 60 units SUBCUT 2100 [facility] Last Admin: 02/16/18 20:51 Dose: 60 units Insulin Human Lispro (Humalog*) 0 units SUBCUT AC [facility] PRN Reason: Protocol Last Admin: 02/17/18 17:38 Dose: 3 units Insulin Human Lispro (Humalog*) 0 units SUBCUT ACHS [facility] PRN Reason: Protocol Last Admin: 02/17/18 17:38 Dose: 6 units Lidocaine (Lidoderm 5% Patch*) 1 patch TRANSDERM DAILY [facility] Last Admin: 02/17/18 07:59 Dose: 1 patch Linagliptin (Tradjenta (Nf)) 5 mg PO DAILY [facility] Last Admin: 02/17/18 07:59 Dose: 5 mg Magnesium Hydroxide (Milk Of Magnesia Liq*) 30 ml PO Q6H PRN PRN Reason: CONSTIPATION Melatonin (Melatonin (Nf)) 3 mg PO BEDTIME PRN; Protocol PRN Reason: Sleep Metoprolol Succinate (Toprol Xl Tab*) 100 mg PO BID [facility] Last Admin: 02/17/18 07:58 Dose: 100 mg Mometasone Furoate/Formoterol Fumar (Dulera 200/5 Mdi*) 2 puff INH BID [facility] Last Admin: 02/17/18 08:17 Dose: 2 puff Montelukast Sodium (Singulair Tab*) 10 mg PO DAILY [facility] Last Admin: 02/17/18 07:58 Dose: 10 mg Morphine Sulfate (Morphine Vial*) 4 mg IV Q3H PRN PRN Reason: Moderate to Severe Pain Last Admin: 02/17/18 13:22 Dose: 4 mg Omeprazole (Prilosec Cap*) 40 mg PO BID [facility] Last Admin: 02/17/18 07:58 Dose: 40 mg Ondansetron HCl (Zofran Odt Tab*) 4 mg PO Q6H PRN PRN Reason: n/v Last Admin: 02/16/18 11:54 Dose: 4 mg Oxycodone/Acetaminophen (Percocet 5/325 Tab*) 1 tab PO Q4H PRN PRN Reason: PAIN Last Admin: 02/17/18 17:38 Dose: 1 tab Pharmacy Profile Note (Lidocaine Patch Remove*) 1 note N/A 2100 [facility] Last Admin: 02/16/18 20:52 Dose: Not Given Polyethylene Glycol/Electrolytes (Miralax*) 17 gm PO 0800,2100 [facility] Last Admin: 02/17/18 13:23 Dose: 17 gm Pregabalin (Lyrica Cap(*)) 100 mg PO BID [facility] Last Admin: 02/17/18 07:58 Dose: 100 mg Spironolactone (Aldactone Tab*) 50 mg PO QAM [facility] Last Admin: 02/17/18 07:57 Dose: 50 mg Warfarin Sodium (Coumadin Tab(*)) 3 mg PO 1700 [facility] PRN Reason: Protocol Last Admin: 02/17/18 17:39 Dose: 3 mg Warfarin Sodium (Coumadin Tab(*)) 4 mg PO 1700 [facility] Last Admin: 02/17/18 17:39 Dose: 4 mg SOCIAL HISTORY: Non smoker, No alcohol. Lives with son in apartment in [facility] Laboratory Results - last 24 hr 02/16/18 02/17/18 02/17/18 20:35 05:57 05:57 WBC 8.7 RBC 4.10 Hgb 11.4 L Hct 36 MCV 88 MCH 28 MCHC 32 RDW 20 H Plt Count 145 L MPV 8.9 Neut % (Auto) 61.4 Lymph % (Auto) 23.0 L [place] % (Auto) 13.1 H Eos % (Auto) 1.3 Baso % (Auto) 1.2 Absolute Neuts (auto) 5.3 Absolute Lymphs (auto) 2.0 Absolute Monos (auto) 1.1 H Absolute Eos (auto) 0.1 Absolute Basos (auto) 0.1 Absolute Nucleated RBC 0.1 Nucleated RBC % 0.5 INR (Anticoag Therapy) 1.80 H POC Glucose (mg/dL) 229 H 02/17/18 02/17/18 02/17/18 07:33 11:38 16:52 WBC RBC Hgb Hct MCV MCH MCHC RDW Plt Count MPV Neut % (Auto) Lymph % (Auto) [place] % (Auto) Eos % (Auto) Baso % (Auto) Absolute Neuts (auto) Absolute Lymphs (auto) Absolute Monos (auto) Absolute Eos (auto) Absolute Basos (auto) Absolute Nucleated RBC Nucleated RBC % INR (Anticoag Therapy) POC Glucose (mg/dL) 261 H 189 H 236 H Vital Signs Temp Pulse Resp BP Pulse Ox 97.7 F 70 18 125/76 99 02/17/18 15:32 02/17/18 15:32 02/17/18 17:38 02/17/18 15:32 02/17/18 15:32 EXAM: LUNGS: Mostly clear HEART: reg rhythm ABDOMEN: No rashes over left thorax. Soft abdomen EXTREMITIES: Normal muscle bulk and tone NEUROLOGIC: alert and oriented. Able to move 4 extremities. Exam non-focal. Decreased sensation in feet ASSESSMENT: 1. Left sided atypical chest pain/flank pain 2. CHF, diuresing 3. Diabetes 4. Diabetic Peripheral Neuropathy PLAN: The patient is reporting pain following the path of her ribs/intercostals. I did not see a rib fracture and the pain seems more neuropathic to me. I will start her on low dose gabapentin. Given her kidney disease will have to keep her dose on the low side. Will start with 100 mg tonight, then 100 mg BID. I'll see her tomorrow.
[2018-02-17] MEDS: Nortriptyline CAP* 10 MG PO SCH (20:45)
[2018-02-17] MEDS: Insulin GLARGINE(*) 1 UNITS UNIT SUBCUT SCH (20:48)
[2018-02-17] MEDS: Lidocaine Patch REMOVE* 1 NOTE MISC SCH (20:50)
[2018-02-18] MEDS: Morphine VIAL* 4 MG/ML VIAL (1 ml vial) IV PRN (03:08)
[2018-02-18] MEDS: Magnesium Hydroxide LIQ* 30 ML UDC PO PRN ×2 (03:09→10:27)
[2018-02-18] MEDS: oxyCODONE/Acetamin 5/325 MG* TAB PO PRN ×3 (05:39→21:05)
[2018-02-18 06:47] LABS: ABS Basophils 0.1 10^3/ul (0-0.2); ABS Eosinophils 0.1 10^3/ul (0-0.6); ABS Monocytes 1.2 10^3/ul (0-0.8); ABS Neutrophils 5.1 10^3/ul (1.5-7.7); ABS Nucleated RBC 0 10^3/ul; Eosinophil % 1.1 % (0-6); Hematocrit 34 % (35-47); Hemoglobin 11.1 g/dl (12.0-16.0); Lymphocyte % 23.8 % (25-47); Mean Corpuscular HGB Conc 33 g/dl (31-36); Mean Corpuscular Hemoglobin 28 pg (27-31); Mean Corpuscular Volume 87 fL (80-97); Mean Platelet Volume 8.8 um3 (7.4-10.4); Nucleated Red Blood Cells % 0.4; Platelet Count 156 10^3/ul (150-450); Red Blood Count 3.92 10^6/ul (4.0-5.4); Red Cell Distribution Width 20 % (10.5-15); White Blood Count 8.6 10^3/ul (3.5-10.8)
[2018-02-18 07:02] LABS: EGFR Non-African American 20.4 (>60)
[2018-02-18 07:03] LABS: INR 2.04 (0.77-1.02)
[2018-02-18] MEDS: Mometasone/Formoter 200/5 MDI INH SCH ×2 (08:02→20:34)
[2018-02-18] MEDS: Insulin LISPRO* 1 UNITS UNIT SUBCUT SCH ×7 (09:07→21:04)
[2018-02-18] MEDS: Lidocaine PATCH 5%* 1 PATCH TRANSDERM SCH (09:08)
[2018-02-18] MEDS: LINAGLIPTIN 5 MG PO SCH (09:08)
[2018-02-18] MEDS: Montelukast Sodium TAB* 10 MG PO SCH (09:09)
[2018-02-18] MEDS: Furosemide IV* 10 MG/ML VIAL (40 MG) IV SCH (09:09)
[2018-02-18] MEDS: Omeprazole CAP* 20 MG PO SCH ×2 (09:09→21:05)
[2018-02-18] MEDS: Allopurinol TAB* 100 MG PO SCH (09:09)
[2018-02-18] MEDS: Spironolactone TAB* 25 MG PO SCH (09:09)
[2018-02-18] MEDS: Atorvastatin* 20 MG TAB PO SCH (09:09)
[2018-02-18] MEDS: Metoprolol Succinate XL TAB* 100 MG PO SCH ×2 (09:10→21:06)
[2018-02-18] MEDS: Pregabalin CAP(*) 100 MG PO SCH ×2 (09:10→21:06)
[2018-02-18] MEDS: Polyethylene Glycol 3350* 17 GM PACKET PO SCH ×2 (09:10→21:04)
[2018-02-18] MEDS: Docusate CAP* 100 MG PO SCH ×2 (09:10→21:05)
[2018-02-18] MEDS ORDERED: Sodium Phosphate ADULT ENEMA* 118 ml bottle PR PRN (11:13)
--- NOTE | 2018-02-18 14:17 | PN ---
Subjective Date of Service: 02/18/18 Interval History: HOSPITALIST PROGRESS NOTE Patient seen and examined at bedside. Care reviewed and d/w Cassie Moses RN. She feels a little better today. Dyspnea and chest pain are resolved, but left flank pain persists. Family History: Unchanged from Admission Social History: Unchanged from Admission Past Medical History: Unchanged from Admission Objective Active Medications: Acetaminophen (Tylenol Tab*) 650 mg PO Q6H PRN PRN Reason: FEVER/PAIN Last Admin: 02/18/18 10:27 Dose: 650 mg Albuterol (Ventolin Hfa Inhaler*) 2 puff INH Q4H PRN PRN Reason: WHEEZING Allopurinol (Zyloprim Tab*) 100 mg PO DAILY [facility] Last Admin: 02/18/18 09:09 Dose: 100 mg Atorvastatin Calcium (Lipitor*) 20 mg PO DAILY [facility] Last Admin: 02/18/18 09:09 Dose: 20 mg Docusate Sodium (Colace Cap*) 200 mg PO BID [facility] Last Admin: 02/18/18 09:10 Dose: 200 mg Insulin Glargine (Lantus(*)) 60 units SUBCUT 2100 [facility] Last Admin: 02/17/18 20:48 Dose: 60 units Insulin Human Lispro (Humalog*) 0 units SUBCUT AC [facility] PRN Reason: Protocol Last Admin: 02/18/18 13:03 Dose: 5 units Insulin Human Lispro (Humalog*) 0 units SUBCUT ACHS [facility] PRN Reason: Protocol Last Admin: 02/18/18 13:02 Dose: 3 units Lidocaine (Lidoderm 5% Patch*) 1 patch TRANSDERM DAILY [facility] Last Admin: 02/18/18 09:08 Dose: 1 patch Linagliptin (Tradjenta (Nf)) 5 mg PO DAILY [facility] Last Admin: 02/18/18 09:08 Dose: 5 mg Magnesium Hydroxide (Milk Of Magnesia Liq*) 30 ml PO Q6H PRN PRN Reason: CONSTIPATION Last Admin: 02/18/18 10:27 Dose: 30 ml Melatonin (Melatonin (Nf)) 3 mg PO BEDTIME PRN; Protocol PRN Reason: Sleep Metoprolol Succinate (Toprol Xl Tab*) 100 mg PO BID [facility] Last Admin: 02/18/18 09:10 Dose: 100 mg Mometasone Furoate/Formoterol Fumar (Dulera 200/5 Mdi*) 2 puff INH BID [facility] Last Admin: 02/18/18 08:02 Dose: 2 puff Montelukast Sodium (Singulair Tab*) 10 mg PO DAILY [facility] Last Admin: 02/18/18 09:09 Dose: 10 mg Morphine Sulfate (Morphine Vial*) 4 mg IV Q3H PRN PRN Reason: Moderate to Severe Pain Last Admin: 02/18/18 03:08 Dose: 4 mg Nortriptyline HCl (Pamelor Cap*) 10 mg PO BEDTIME [facility] Last Admin: 02/17/18 20:45 Dose: 10 mg Omeprazole (Prilosec Cap*) 40 mg PO BID [facility] Last Admin: 02/18/18 09:09 Dose: 40 mg Ondansetron HCl (Zofran Odt Tab*) 4 mg PO Q6H PRN PRN Reason: n/v Last Admin: 02/16/18 11:54 Dose: 4 mg Oxycodone/Acetaminophen (Percocet 5/325 Tab*) 1 tab PO Q4H PRN PRN Reason: PAIN Last Admin: 02/18/18 13:02 Dose: 1 tab Pharmacy Profile Note (Lidocaine Patch Remove*) 1 note N/A 2100 [facility] Last Admin: 02/17/18 20:50 Dose: Not Given Polyethylene Glycol/Electrolytes (Miralax*) 17 gm PO 0800,2100 [facility] Last Admin: 02/18/18 09:10 Dose: 17 gm Pregabalin (Lyrica Cap(*)) 100 mg PO BID [facility] Last Admin: 02/18/18 09:10 Dose: 100 mg Sodium Biphosphate/Sodium Phosphate (Fleet Enema*) 1 bottle [place] DAILY PRN PRN Reason: CONSTIPATION Spironolactone (Aldactone Tab*) 50 mg PO QAM [facility] Last Admin: 02/18/18 09:09 Dose: 50 mg Torsemide (Demadex*) 40 mg PO DAILY [facility] Warfarin Sodium (Coumadin Tab(*)) 3 mg PO 1700 [facility] PRN Reason: Protocol Last Admin: 02/17/18 17:39 Dose: 3 mg Warfarin Sodium (Coumadin Tab(*)) 4 mg PO 1700 [facility] Last Admin: 02/17/18 17:39 Dose: 4 mg Vital Signs - 8 hr 02/18/18 02/18/18 02/18/18 07:09 07:39 08:00 Temperature 98.9 F Pulse Rate 70 Respiratory 18 18 18 Rate Blood Pressure 141/78 (mmHg) O2 Sat by Pulse 98 Oximetry 02/18/18 02/18/18 02/18/18 11:30 12:18 13:02 Temperature 98.0 F Pulse Rate 70 Respiratory 18 18 Rate Blood Pressure 104/58 (mmHg) O2 Sat by Pulse 95 Oximetry Oxygen Devices in Use Now: None Appearance: Morbid obese lady lying in bed in NAD. Eyes: No Scleral Icterus Ears/Nose/Mouth/Throat: Mucous Membranes Moist Neck: Trachea Midline Respiratory: Symmetrical Chest Expansion and Respiratory Effort, Clear to Auscultation Cardiovascular: - - Normal S1 and S2, irregular Abdominal: NL Sounds; No Tenderness; No Distention Neurological: Alert and Oriented x 3, NL Muscle Strength and Tone Result Diagrams: 02/18/18 06:40 02/18/18 06:40 Assess/Plan/Problems-Billing Assessment: Mr. Suarez is a 77yo F with PMH of morbid obesity with BMI 42, type 2 DM, CKD stage 4, Afib, Vtach, pericardial tamponade, s/p pacer, CAD, diastolic CHF, HTN , HLD, SUKH, GERD, gout, anxiety, who presented to ED with c/o chest pain and dyspnea, found to have CHF exacerbation. - Patient Problems (1) Flank pain Comment: - CT was negative for nephrolithiasis and UA showed only glucose. - She has some pain on palpation, but pain is worse with deep inspiration. Her INR was subtherapeutic on admission - V/Q scan negative for PE. - No rash or palpable mass, but does have pain on palpation - suspect musculoskeletal etiology. - Pain management consult appreciated - continue nortriptyline. (2) Acute exacerbation of congestive heart failure Comment: - Acute diastolic CHF exacerbation secondary to dietary non complaince most likely. - Change Furosemide to her usual Torsemide. (3) Constipation Comment: - Probably contributing to her pain - continue bowel regimen. (4) Chest pain Comment: - Patient had non obstructive CAD in 2009 and stress test in 2016 was suggestive of an apical infarct. - Stress test showed infero apical defect compatible with infarct and subtle periinfarct ischemia - Cardiology consult appreciated. (5) Type II diabetes mellitus Comment: - A1c is 9.1%. - Continue Lantus, Tradjenta, and Lispro SS. (6) Chronic renal disease, stage IV Comment: - At baseline. - Continue diuretics and monitor renal function. (7) Atrial fibrillation Comment: - Continue Metoprolol and Warfarin. (8) HTN (hypertension) Comment: - Continue Metoprolol, furosemide, aldactone. (9) DVT prophylaxis Comment: - Warfarin. (10) Full code status Status and Disposition: Inpatient for management of CHF exacerbation and pain management. Anticipate d/ c in AM if pain controlled.
[2018-02-18] MEDS ORDERED: Bisacodyl SUPP* 10 MG SUPP PR PRN (16:37)
[2018-02-18] MEDS: Warfarin TAB(*) 4 MG PO SCH (17:26)
[2018-02-18] MEDS: Bisacodyl EC TAB* 5 MG PO SCH (17:26)
[2018-02-18] MEDS: Warfarin TAB(*) 3 MG PO SCH (17:26)
[2018-02-18] MEDS: Insulin GLARGINE(*) 1 UNITS UNIT SUBCUT SCH (21:04)
[2018-02-18] MEDS: Lidocaine Patch REMOVE* 1 NOTE MISC SCH (21:05)
[2018-02-18] MEDS: Nortriptyline CAP* 10 MG PO SCH (21:06)
[2018-02-19 05:53] LABS: ABS Basophils 0.1 10^3/ul (0-0.2); ABS Eosinophils 0.1 10^3/ul (0-0.6); ABS Lymphocytes 2.1 10^3/ul (1.0-4.8); ABS Monocytes 1.3 10^3/ul (0-0.8); ABS Neutrophils 4.2 10^3/ul (1.5-7.7); ABS Nucleated RBC 0 10^3/ul; Eosinophil % 1.3 % (0-6); Hematocrit 33 % (35-47); Lymphocyte % 27.3 % (25-47); Mean Corpuscular HGB Conc 33 g/dl (31-36); Mean Corpuscular Hemoglobin 28 pg (27-31); Mean Corpuscular Volume 86 fL (80-97); Mean Platelet Volume 8.8 um3 (7.4-10.4); Nucleated Red Blood Cells % 0.4; Platelet Count 141 10^3/ul (150-450); Red Blood Count 3.88 10^6/ul (4.0-5.4); Red Cell Distribution Width 20 % (10.5-15); White Blood Count 7.8 10^3/ul (3.5-10.8)
[2018-02-19 06:41] LABS: INR 1.99 (0.77-1.02)
[2018-02-19] MEDS: Mometasone/Formoter 200/5 MDI INH SCH (08:37)
[2018-02-19 08:52] VITALS: BP 131/70
[2018-02-19] MEDS ORDERED: Torsemide TAB* 20 MG PO SCH (09:00)
[2018-02-19] MEDS: Insulin LISPRO* 1 UNITS UNIT SUBCUT SCH ×4 (09:47→13:05)
[2018-02-19] MEDS: Omeprazole CAP* 20 MG PO SCH (09:48)
[2018-02-19] MEDS: Metoprolol Succinate XL TAB* 100 MG PO SCH (09:49)
[2018-02-19] MEDS: LINAGLIPTIN 5 MG PO SCH (09:49)
[2018-02-19] MEDS: Pregabalin CAP(*) 100 MG PO SCH (09:49)
[2018-02-19] MEDS: Allopurinol TAB* 100 MG PO SCH (09:49)
[2018-02-19] MEDS: Spironolactone TAB* 25 MG PO SCH (09:50)
[2018-02-19] MEDS: oxyCODONE/Acetamin 5/325 MG* TAB PO PRN (09:50)
[2018-02-19] MEDS: Atorvastatin* 20 MG TAB PO SCH (09:51)
[2018-02-19] MEDS: Lidocaine PATCH 5%* 1 PATCH TRANSDERM SCH (09:51)
[2018-02-19] MEDS: Montelukast Sodium TAB* 10 MG PO SCH (09:51)
[2018-02-19] MEDS: Bisacodyl EC TAB* 5 MG PO SCH (09:52)
[2018-02-19] MEDS: Docusate CAP* 100 MG PO SCH (09:53)
[2018-02-19] MEDS: Polyethylene Glycol 3350* 17 GM PACKET PO SCH (09:59)
--- NOTE | 2018-02-20 10:36 | DS ---
CC: Dr. Lopez; Dr. Waddell; Dr. Simons DISCHARGE SUMMARY: DATE OF ADMISSION: 02/12/18 DATE OF DISCHARGE: 02/19/18 PRIMARY CARE PROVIDER: Dr. Lopez. HIGH LIFT OPERATOR: Dr. Waddell. PAIN SPECIALIST: Dr. Simons. DISCHARGE DIAGNOSES: 1. Acute on chronic hypoxemic respiratory failure. 2. Acute diastolic congestive heart failure exacerbation secondary to dietary noncompliance. 3. Chest pain, acute coronary syndrome and pulmonary embolism ruled out. 4. Left flank pain secondary to neuropathic pain and constipation. SECONDARY DIAGNOSES: 1. Morbid obesity. 2. Type 2 diabetes. 3. Asthma. 4. Diverticulitis. 5. Gastroesophageal reflux disease. 6. Diabetic neuropathy. 7. Hyperlipidemia. 8. Atrial fibrillation, on warfarin. 9. Coronary artery disease. 10. Hypertension. 11. Chronic obstructive pulmonary disease. 12. Chronic diastolic heart failure. 13. Status post pacemaker. 14. Primary pulmonary hypertension. 15. Obstructive sleep apnea. 16. Chronic kidney disease, stage 3 to 4. 17. Ventricular tachycardia. 18. Pericardial tamponade. 19. Gout. 20. Anxiety. MEDICATION LIST: 1. Oxycodone/acetaminophen 5/325 mg 1 tablet p.o. q.4 hours p.r.n. pain. 2. Torsemide 40 mg p.o. daily. 3. Spironolactone 50 mg p.o. daily. 4. Lyrica 100 mg p.o. b.i.d. 5. MiraLax 1 packet p.o. daily as needed for constipation. 6. Omeprazole 40 mg p.o. b.i.d. 7. [place] 3, 2 capsules p.o. b.i.d. 8. Olopatadine 0.1% 1 drop to both eyes b.i.d. 9. Montelukast 10 mg p.o. daily. 10. Mometasone 220 mcg 2 puffs inhaled daily. 11. Metoprolol succinate 100 mg p.o. b.i.d. 12. Milk of magnesia 30 mL p.o. daily. 13. Loratadine 10 mg p.o. daily. 14. Tradjenta 5 mg p.o. daily. 15. Lispro insulin 15 units subcutaneously t.i.d. with meals. 16. Lantus 105 units subcutaneously at bedtime and 110 units subcutaneously in the morning. 17. Advair 500/50, 1 puff inhaled b.i.d. 18. Fluticasone nasal spray 2 sprays to both nares daily. 19. Vitamin B12, 500 mcg p.o. q.a.m. 20. Cholecalciferol 1000 units p.o. b.i.d. 21. Atorvastatin 20 mg p.o. daily. 22. Allopurinol 100 mg p.o. daily. 23. Albuterol HFA 2 puffs inhaled q.4 hours p.r.n. shortness of breath. 24. Metolazone 2.5 mg p.o. daily for edema. MEDICATION CHANGE: Warfarin was increased to 7 mg p.o. at 5 p.m. daily. NEW MEDICATION: Nortriptyline 10 mg p.o. at bedtime. HOSPITAL COURSE: Mrs. Forte is a 77-year-old lady with a complex past medical history as stated above, who presented to the emergency room with complaints of left-sided chest pain radiating to her neck and left arm associated with shortness of breath, nausea, sweats, palpitations, and wheezing. For more details about her presentation, I refer you to her history and physical. In the emergency room, the patient had a chest x-ray that showed cardiomegaly with pulmonary vascular congestion. The patient admitted to the telemetry floor under the impression of acute diastolic CHF exacerbation. In further questioning, I determined that the issue is dietary noncompliance. The patient admits eating chips, crackers, cold cuts, and as per family members, she probably eats even more than that. They state that in the past they tried to take those foods away from her and the patient became very upset. Initially, the patient was diuresed because she was not able to lie flat to have a stress test. She was admitted with 249 pounds and the lowest weight achieved was 245 pounds despite significant diuresis. She underwent a nuclear medicine pharmacological stress test and this study showed inferoapical defect consistent with an infarct with maybe subtle dale-infarct ischemic change. Cardiology consultation was requested and the patient was seen by Dr. Edd Lee. He felt that her pain was probably musculoskeletal in nature and he agreed with symptomatic treatment of her noncardiac chest discomfort, cautious diuresis, and further management of her diabetes, and to continue to follow up with Dr. Lopez and Dr. Waddell. The patient was found to have a hemoglobin A1c of 9.1 and she was seen in consultation by Veronica Jay, nurse practitioner, at the [facility]. The patient received education about the importance of dietary compliance and not only compliance with her medications. The recommendation was for her to follow up as an outpatient at [facility]. After diuresis, the patient had improvement of her shortness of breath and of her chest pain, but the left flank pain persisted. Her urinalysis was negative for urinary tract infection. CT of the abdomen and pelvis showed known urolithiasis or hydronephrosis. A V/Q scan was negative for pulmonary embolism. As the patient's left flank pain persisted, consultation was requested with Dr. Simons and his impression was that the patient had pain following the ribs on the left with neuropathic pattern. The patient does not have any rashes to suggest herpes zoster. His recommendation was to continue her Lyrica and to add nortriptyline. The patient was also noted to be constipated and after taking a bowel regimen, she did have a sizeable bowel movement. She states that with the new medication after the bowel movement, her pain is much improved. She was felt to be stable to be discharged home today, but she will need close followup with her primary care provider and her lead designer. If her primary care provider does not have any openings to see her next week, I believe she would benefit being seen at the [facility] especially for her CHF as I suspect her dietary noncompliance will continue. The patient is on supplemental oxygen at home at night 2 L per minute, but now she also requires oxygen with exertion. PHYSICAL EXAMINATION: Vital Signs: Temperature 98.1, heart rate 67, respiratory rate 19, oxygen saturation was 97% on 2 L nasal cannula, blood pressure is 131/70. General: The patient is a pleasant morbidly obese lady, sitting up in the bed in no acute distress. CVS: Normal S1, S2. Regular rate and rhythm. Chest: Breath sounds present bilaterally, decreased in bases, but with no added sounds. Abdomen is obese, soft, nontender, nondistended. The patient does have pain on palpation on the left lower side of her ribcage, but with no palpable masses, crepitus or any visible rash. Extremities: Trace bilateral lower extremity edema. Neuro: She is alert and oriented x3, able to move all 4 extremities. DIET: Consistent carb heart healthy diet. ACTIVITY: As tolerated. DISPOSITION: To home. STATUS IN THE HOSPITAL: Inpatient. TIME SPENT: Approximately 50 minutes were spent to complete this discharge. Please keep in mind this is a summarized version of this patient's hospital stay. If you need more information, please feel free to call me at [phone] or please obtain the full medical records. [id number]/[facility] #: [id number] MTDD
== END 2018-02-19 13:18 | disposition home or self-care (01) | DRG 291 ==
LOC: ED 19:30 → MED 23:26 → OBSVTOIN 02-13 08:48
PROVIDERS: ADMIT Hospitalist; ATTEND Internal Medicine
DX: I13.0 Hypertensive heart and chronic kidney disease with heart failure and stage 1 through stage 4 chronic kidney disease, or unspecified chronic kidney disease (principal); I50.43 Acute on chronic combined systolic (congestive) and diastolic (congestive) heart failure; J96.21 Acute and chronic respiratory failure with hypoxia; N18.4 Chronic kidney disease, stage 4 (severe); I25.3 Aneurysm of heart; Z68.41 Body mass index [BMI] 40.0-44.9, adult; I27.0 Primary pulmonary hypertension; I25.10 Atherosclerotic heart disease of native coronary artery without angina pectoris; E78.00 Pure hypercholesterolemia, unspecified; J44.9 Chronic obstructive pulmonary disease, unspecified; K57.90 Diverticulosis of intestine, part unspecified, without perforation or abscess without bleeding; K21.9 Gastro-esophageal reflux disease without esophagitis; R16.0 Hepatomegaly, not elsewhere classified; M10.9 Gout, unspecified; M19.90 Unspecified osteoarthritis, unspecified site; G62.9 Polyneuropathy, unspecified; F41.9 Anxiety disorder, unspecified; F32.9 Major depressive disorder, single episode, unspecified; H26.9 Unspecified cataract; G47.33 Obstructive sleep apnea (adult) (pediatric); I48.91 Unspecified atrial fibrillation; E11.22 Type 2 diabetes mellitus with diabetic chronic kidney disease; E11.42 Type 2 diabetes mellitus with diabetic polyneuropathy; I42.9 Cardiomyopathy, unspecified; E11.36 Type 2 diabetes mellitus with diabetic cataract; E66.01 Morbid (severe) obesity due to excess calories; E11.65 Type 2 diabetes mellitus with hyperglycemia; E11.649 Type 2 diabetes mellitus with hypoglycemia without coma; K59.00 Constipation, unspecified; I08.1 Rheumatic disorders of both mitral and tricuspid valves; Z88.1 Allergy status to other antibiotic agents; Z91.040 Latex allergy status; Z91.013 Allergy to seafood; Z88.8 Allergy status to other drugs, medicaments and biological substances; Z91.018 Allergy to other foods; Z95.810 Presence of automatic (implantable) cardiac defibrillator; Z87.442 Personal history of urinary calculi; Z90.49 Acquired absence of other specified parts of digestive tract; Z90.710 Acquired absence of both cervix and uterus; Z82.49 Family history of ischemic heart disease and other diseases of the circulatory system; Z82.3 Family history of stroke; Z82.61 Family history of arthritis; Z91.11 Patient's noncompliance with dietary regimen; Z79.4 Long term (current) use of insulin; Z79.01 Long term (current) use of anticoagulants
CPT/HCPCS: 36415; 71045; 71046; 74176; 78452; 78582; 80048; 80053; 81003; 82565; 83036; 84484; 84520; 85025; 85610; 93005; 93017; 94640; 99221; 99285; A9270-GY; A9502; A9540; A9558; G0378; J1170; J1940; J2270; J2785

== ENCOUNTER 2018-05-01 11:55 | Observation (INO) | payer MEDICARE ==
--- NOTE | 2018-05-01 12:12 | ED ---
Shortness of Breath - HPI Summary HPI Summary: This is scribe Russell Harding documenting for attending Kenneth Calderón MD. Patient is a 77 y/o F BIBA w/ c/o SOB onsetting 2-3 days ago. On triage, chest tightness is also reported. Patient states exertion worsens Sx and that she experiences light-headedness during exertion. The presence of cough, congestion , and fever is denied. Patient has PMHx of asthma and COPD. She states that she can sometimes hear herself wheezing but notes she is not wheezing currently. Lying down and deep breaths do not aggravate Sx. On triage, nothing is noted to alleviate Sx and pain is denied. EMS provided oxygen and in the room she claims she is feeling fine. She states she has O2 tank at home and an asthma pump. The patient notes she has been using oxygen tank more than normal recently and states she takes O2 as needed. She also has a nebulizer machine but reports not using it in the past few weeks. Pain is denied on triage. Home medications and allergies are reviewed. - History of Current Complaint Chief Complaint: EDShortnessOfBreath Time Seen by Provider: 05/01/18 12:05 Hx Obtained From: Patient Onset/Duration: Lasting Days - 2-3 days ago according to patient, Resolved - patient states she is feeling fine in the room Current Severity: None - on triage, pain is denied Dyspnea At: Exertion - experienced light-headedness during exertion as well Aggrevating Factors: Other - exertion Alleviating Factors: Oxygen - Allergy/Home Medications Allergies/Adverse Reactions: Allergies Allergy/AdvReac Type Severity Reaction Status Date / Time latex Allergy Swelling Verified 05/01/18 13:08 shellfish derived Allergy Swelling Verified 05/01/18 13:08 Of Face,Lips,& Throat cephalexin [From Keflex] AdvReac Mild Facial Verified 05/01/18 13:08 Redness/Flushing dofetilide [From Tikosyn] AdvReac Palpitation Verified 05/01/18 13:08 s enoxaparin [From Lovenox] AdvReac "blood too Verified 05/01/18 13:08 thin" Home Medications: Home Medications Albuterol Sulfate [Ventolin Hfa] 2 puff INH BID 05/01/18 [History Confirmed 01/13] Fluticasone-Salmeterol 500-50* [Advair Diskus 500-50*] 1 puff INH BID 05/01/18 [ History Confirmed 05/01/18] Insulin Glargine,Hum.rec.anlog [Lantus Solostar 5x3 ML PENS] 85 units SUBCUT QPM 05/01/18 [History Confirmed 05/01/18] Insulin Glargine,Hum.rec.anlog [Lantus Solostar 5x3 ML PENS] 100 units SUBCUT QAM 05/01/18 [History Confirmed 05/01/18] Linagliptin (NF) [Tradjenta (NF)] 1 tab PO DAILY 05/01/18 [History Confirmed 01/13] Pregabalin [Lyrica] 50 mg PO BID 05/01/18 [History Confirmed 05/01/18] PMH/Surg Hx/FS Hx/Imm Hx Endocrine/Hematology History: Reports: Hx Anticoagulant Therapy, Hx Blood Transfusions, Hx Diabetes, Hx Anemia, Other Endocrine/Hematological Disorders Cardiovascular History: Reports: Hx Angina, Hx Auto Implanted Cardiovert Defib, Hx Cardiomegaly, Hx Congestive Heart Failure, Hx Coronary Artery Disease, Hx Hypercholesterolemia, Hx Hypertension, Hx Myocardial Infarction, Hx Pacemaker/ ICD, Hx Syncope Denies: Hx Valvular Heart Disease Respiratory History: Reports: Hx Asthma, Hx Chronic Obstructive Pulmonary Disease (COPD), Hx Pleural Effusion, Hx Pulmonary Edema, Hx Sleep Apnea GI History: Reports: Hx Diverticulosis, Hx Gall Bladder Disease, Hx Gastroesophageal Reflux Disease, Other GI Disorders - Enlarged liver, polyps History: Reports: Hx Chronic Renal Failure, Hx Kidney Stones Denies: Hx Renal Disease Musculoskeletal History: Reports: Hx Arthritis, Hx Back Problems, Hx Gout Denies: Hx Osteoporosis Sensory History: Reports: Hx Cataracts, Hx Contacts or Glasses, Hx Vision Problem - blurry, Other Sensory Impairments - Neuropathy Denies: Hx Deafness, Hx Hearing Aid Opthamlomology History: Reports: Hx Cataracts, Hx Contacts or Glasses, Hx Vision Problem - blurry, Other Sensory Impairments - Neuropathy Neurological History: Reports: Hx Headaches, Hx Peripheral Neuropathy Denies: Hx Seizures, Hx Transient Ischemic Attacks (TIA) Psychiatric History: Reports: Hx Anxiety, Hx Depression - Surgical History Surgery Procedure, Year, and Place: Cholecystectomy 29 years ago. Appy 29 years ago. HYSTERECTOMY 29 years ago. Pacemaker placement 2009 Hx Anesthesia Reactions: No - Immunization History Date of Tetanus Vaccine: Unk Date of Influenza Vaccine: Fall 2014 Infectious Disease History: No Infectious Disease History: Denies: Traveled Outside the [place] in Last 30 Days - Family History Known Family History: Positive: Cardiac Disease - Brother with AL at age 34 - Social History Alcohol Use: None Hx Substance Use: No Substance Use Type: Reports: None Substance Use Comment - Amount & Last Used: tramadol; oxycodone Hx Tobacco Use: No Smoking Status (MU): Never Smoked Tobacco Have You Smoked in the Last Year: No Review of Systems Negative: Fever Positive: Other - chest tightness experienced, since resolved Positive: Shortness Of Breath - resolved in the room , Other - NEGATIVE: congestion . Negative: Cough Neurological: Other - experiences light-headedness during exertion All Other Systems Reviewed And Are Negative: Yes Physical Exam - Summary Physical Exam Summary: Appearance: The patient is well-nourished in no acute distress and in no acute pain. Skin: The skin is warm and dry and skin color reflects adequate perfusion. HEENT: The head is normocephalic and atraumatic. The pupils are equal and reactive. The conjunctivae are clear and without drainage. Nares are patent and without drainage. Mouth reveals moist mucous membranes and the throat is without erythema and exudate. The external ears are intact. The ear canals are patent and without drainage. The tympanic membranes are intact. Neck: The neck is supple with full range of motion and non-tender. There are no carotid bruits. There is no neck vein distension. Respiratory: Chest is non-tender. Lungs are clear to auscultation and breath sounds are symmetrical and equal. Cardiovascular: Heart is regular rate and rhythm. There is no murmur or rub auscultated. There is no peripheral edema and pulses are symmetrical and equal. Abdomen: The abdomen is soft and non-tender. There are normal bowel sounds heard in all four quadrants and there is no organomegaly palpated. Musculoskeletal: There is no back tenderness noted. Extremities are non-tender with full range of motion. There is good capillary refill. There is no peripheral edema or calf tenderness elicited. Neurological: Patient is alert and oriented to person, place and time. The patient has symmetrical motor strength in all four extremities. Cranial nerves are grossly intact. Deep tendon reflexes are symmetrical and equal in all four extremities. Psychiatric: The patient has an appropriate affect and does not exhibit any anxiety or depression. Triage Information Reviewed: Yes Vital Signs On Initial Exam: Initial Vitals Temp Pulse Resp BP Pulse Ox 97.2 F 80 17 119/83 93 05/01/18 12:04 05/01/18 12:04 05/01/18 12:04 05/01/18 12:04 05/01/18 12:04 Vital Signs Reviewed: Yes Diagnostics - Vital Signs Vital Signs Temp Pulse Resp BP Pulse Ox 05/01/18 12:04 97.2 F 80 17 119/83 93 - Laboratory Result Diagrams: 05/01/18 12:24 05/01/18 12:24 Lab Statement: Any lab studies that have been ordered have been reviewed, and results considered in the medical decision making process. - Radiology CXR Xray Interpretation: Positive (See Comments) Radiology Interpretation Completed By: Radiologist - Cardiomegaly with likely chronic edema and vascular congestion. This report was reviewed by ED physician. - EKG 1225 Cardiac Rate: NL - Rate of 80 BPM EKG Interpretation: Ventricular-paced rhythm; no further analysis attempted due to paced rhythm Re-Evaluation - Re-Evaluation First Eval Re-Evaluation Time: 14:20 Comment: Discussed results of labs and tests as well as the plan to consult hospitalist for admission on patient. Patient is agreeable with the plan. Course/Dx - Course Course Of Treatment: Ms. Forte presented to the emergency department with an exacerbation of COPD. She was given neb and Solu-Medrol but still would drop her pulse ox precipitously with ambulation. She is admitted to the hospitalist service for further treatment - Diagnoses Provider Diagnoses: COPD exacerbation - Physician Notifications Discussed Care of Patient With: River Goss Time Discussed With Above Provider: 14:47 Instructed by Provider To: Other - Dr. Goss was called at 14:47 to discuss patient's case. Dr. Goss will come to ED to see patient and further consult on case. 15:14 -- Patient's case was discussed. Dr. Goss will see patient and make decision to admit 15:30 -- Dr. Goss accepts patient for admission to hospital. - Critical Care Time Critical Care Time: 30-74 min Discharge - Sign-Out/Discharge Documenting (check all that apply): Patient Departure - admit - Discharge Plan Condition: Fair Disposition: ADMITTED TO [facility] - Billing Disposition and Condition Condition: FAIR Disposition: Admitted to [facility]
[2018-05-01] MEDS ORDERED: methylPREDNISolone 125 MG* 2 ML VIAL IV ONE (12:13)
[2018-05-01 12:31] LABS: ABS Basophils 0.1 10^3/ul (0-0.2); ABS Eosinophils 0.1 10^3/ul (0-0.6); ABS Lymphocytes 1.8 10^3/ul (1.0-4.8); ABS Neutrophils 4.5 10^3/ul (1.5-7.7); ABS Nucleated RBC 0 10^3/ul; Hematocrit 36 % (35-47); Hemoglobin 11.4 g/dl (12.0-16.0); Mean Corpuscular HGB Conc 32 g/dl (31-36); Mean Corpuscular Hemoglobin 28 pg (27-31); Mean Corpuscular Volume 86 fL (80-97); Nucleated Red Blood Cells % 0.4; Platelet Count 150 10^3/ul (150-450); Red Blood Count 4.16 10^6/ul (4.00-5.40); Red Cell Distribution Width 20 % (10.5-15); White Blood Count 7.5 10^3/ul (3.5-10.8)
[2018-05-01 12:48] LABS: EGFR Non-African American 16.9 (>60)
--- NOTE | 2018-05-01 13:24 | RAD ---
Indication: Shortness of breath. Single frontal view of the chest performed at 1245 hours was reviewed. Comparison is made with previous exam dated February 17, 2018. Cardiomegaly is noted. Interstitial edema consistent with vascular congestion is noted. This is similar to that seen previously. Pacemaker leads are in place. IMPRESSION: CARDIOMEGALY WITH LIKELY CHRONIC INTERSTITIAL EDEMA AND VASCULAR CONGESTION.
[2018-05-01] MEDS ORDERED: Morphine INJ* 2 MG/ML 1 ML SYRINGE (TWO MG - NEW SYRINGE VERSION) IV PRN (15:31)
[2018-05-01] MEDS ORDERED: Acetaminophen TAB* 325 MG PO PRN (15:31)
[2018-05-01] MEDS ORDERED: Albuterol/Ipratropium NEB.SOL* Albuterol 2.5 MG/Ipratropium 0.5 MG 3 ML INH PRN (15:31)
[2018-05-01] MEDS ORDERED: Ondansetron INJ* 2 MG/ML VIAL IV PRN (15:31)
[2018-05-01] MEDS ORDERED: Polyethylene Glycol 3350* 17 GM PACKET PO PRN (15:35)
[2018-05-01] MEDS ORDERED: Albuterol HFA INHALER* 8 gm MDI INH PRN (15:35)
[2018-05-01] MEDS ORDERED: Furosemide IV* 10 MG/ML VIAL (40 MG) IV ONE (15:42)
[2018-05-01] MEDS ORDERED: Azithromycin IV* 500 MG ADVAN VIAL/BAG IVPB SCH (16:00)
[2018-05-01] MEDS: oxyCODONE/Acetamin 5/325 MG* TAB PO PRN ×2 (16:06→20:18)
[2018-05-01] MEDS ORDERED: Azithromycin IV(*) 500 MG in NS 0.9% 250 ML* 250 ML IVPB SCH (16:30)
[2018-05-01] MEDS ORDERED: Warfarin TAB(*) 3 MG PO SCH (17:00)
[2018-05-01] MEDS ORDERED: Warfarin TAB(*) 4 MG PO SCH (17:00)
[2018-05-01] MEDS: Insulin LISPRO* 1 UNITS UNIT SUBCUT SCH (17:16)
[2018-05-01] MEDS ORDERED: Insulin GLARGINE(*) 1 UNITS UNIT SUBCUT SCH (18:00)
[2018-05-01] MEDS: Mometasone/Formoter 200/5 MDI INH SCH (19:05)
[2018-05-01] MEDS: Albuterol HFA INHALER* 8 gm MDI INH SCH (19:59)
[2018-05-01] MEDS: methylPREDNISolone 125 MG* 2 ML VIAL IV SCH (20:18)
[2018-05-01] MEDS: Metoprolol Succinate XL TAB* 100 MG PO SCH (20:20)
[2018-05-01] MEDS: Omeprazole CAP* 20 MG PO SCH (20:20)
[2018-05-01] MEDS: Cholecalciferol TAB* 1000 UNITS PO SCH (20:20)
[2018-05-01] MEDS: Pregabalin CAP(*) 50 MG PO SCH (20:21)
[2018-05-01] MEDS: NF:Olopatadine 0.1% OPHTH (NF) 1 DROP BTL BOTH EYES SCH (22:19)
[2018-05-02] MEDS: methylPREDNISolone 125 MG* 2 ML VIAL IV SCH ×2 (03:42→13:49)
[2018-05-02 06:47] LABS: ABS Basophils 0 10^3/ul (0-0.2); ABS Eosinophils 0 10^3/ul (0-0.6); ABS Lymphocytes 0.6 10^3/ul (1.0-4.8); ABS Monocytes 0.3 10^3/ul (0-0.8); ABS Neutrophils 6.4 10^3/ul (1.5-7.7); ABS Nucleated RBC 0 10^3/ul; Eosinophil % 0 % (0-6); Hematocrit 35 % (35-47); Hemoglobin 11.2 g/dl (12.0-16.0); Lymphocyte % 8.6 % (25-47); Mean Corpuscular HGB Conc 32 g/dl (31-36); Mean Corpuscular Hemoglobin 27 pg (27-31); Mean Corpuscular Volume 86 fL (80-97); Nucleated Red Blood Cells % 0.2; Platelet Count 149 10^3/ul (150-450); Red Blood Count 4.09 10^6/ul (4.00-5.40); Red Cell Distribution Width 20 % (10.5-15); White Blood Count 7.4 10^3/ul (3.5-10.8)
[2018-05-02 07:08] LABS: EGFR Non-African American 17.6 (>60)
[2018-05-02] MEDS: Insulin LISPRO* 1 UNITS UNIT SUBCUT SCH ×2 (07:47→13:48)
[2018-05-02] MEDS: Cholecalciferol TAB* 1000 UNITS PO SCH (07:48)
[2018-05-02] MEDS: Omeprazole CAP* 20 MG PO SCH (07:48)
[2018-05-02] MEDS: Pregabalin CAP(*) 50 MG PO SCH (07:49)
[2018-05-02] MEDS: Metoprolol Succinate XL TAB* 100 MG PO SCH (07:56)
[2018-05-02] MEDS: NF:Olopatadine 0.1% OPHTH (NF) 1 DROP BTL BOTH EYES SCH (07:56)
[2018-05-02] MEDS: Mometasone/Formoter 200/5 MDI INH SCH (08:35)
[2018-05-02] MEDS: Albuterol HFA INHALER* 8 gm MDI INH SCH (08:39)
[2018-05-02] MEDS ORDERED: Spironolactone TAB* 25 MG PO SCH (09:00)
[2018-05-02] MEDS ORDERED: CMC:LoraTADine TAB(NF) 10 MG TAB (AUTOSUB to CETIRIZINE) PO SCH (09:00)
[2018-05-02] MEDS ORDERED: Atorvastatin* 20 MG TAB PO SCH (09:00)
[2018-05-02] MEDS ORDERED: Torsemide TAB* 20 MG PO SCH (09:00)
[2018-05-02] MEDS ORDERED: Mometasone 220 MCG MDI INH SCH (09:00)
[2018-05-02] MEDS ORDERED: Insulin GLARGINE(*) 1 UNITS UNIT SUBCUT SCH (09:00)
[2018-05-02] MEDS ORDERED: Montelukast Sodium TAB* 10 MG PO SCH (09:00)
[2018-05-02] MEDS: oxyCODONE/Acetamin 5/325 MG* TAB PO PRN (11:22)
[2018-05-02 12:08] VITALS: BP 112/57
--- NOTE | 2018-05-02 17:25 | PN ---
Hospitalist Progress Note Date of Service: 05/02/18 . HOSPITALIST DISCHARGE NOTE: See dc instructions and summary by me. Patient stable for dc dc instructions reviewed with the patient at the bedside. DC patient home today.
--- NOTE | 2018-05-02 21:56 | HP ---
COMBINED ADMISSION HISTORY AND PHYSICAL & DISCHARGE SUMMARY: DATE OF ADMISSION: 05/01/18 DATE OF DISCHARGE: 05/02/18 CHIEF COMPLAINT: Shortness of breath. HISTORY OF PRESENT ILLNESS: Ms. Forte is a pleasant 77-year-old female who came in by ambulance with shortness of breath that started 2 to 3 days ago and progressively has gotten worse. The patient also reported chest tightness. She states that exertion makes her symptoms worse and that she has some lightheadedness when she does exert herself. The patient denies cough or congestion or recent fever. She has a known history of asthma and COPD. She can sometimes hear herself wheezing, but states that she has not been wheezing currently. The patient does not endorse orthopnea. The patient does not report any alleviating or aggravating symptoms. The patient does use home oxygen, but feels her requirement for that oxygen has increased on walking. Her oxygen saturation dipped to 79% on her usual amount of oxygen. She was diagnosed in the emergency room with COPD and referred to the hospitalist group for admission. On speaking with the patient, Ms. Forte also describes dietary indiscretions with copious amounts of salt though she does not deliberately add salt to her foods. However, she likes processed meats, canned soups, Ukrainian food, and many other foods that are known to be high in salt content. The patient has had episodes of acute systolic heart failure in the past and so she was not only treated for COPD, but also admitted for congestive heart failure exacerbation with an acute-on- chronic diastolic components. PAST MEDICAL HISTORY: The patient has the following past medical history: 1. 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 2. CKD - stage 4. 3. Atrial fibrillation - on anticoagulation. 4. 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 5. History of pericardial tamponade. 6. Nonobstructive coronary disease and congestive heart failure. 7. Hypertension. 8. Hyperlipidemia. 9. Obstructive sleep apnea - noncompliant with CPAP. 10. GERD. 11. Gout. 12. Anxiety. OUTPATIENT MEDICATIONS: 1. Warfarin 5 mg by mouth daily. 2. Lyrica 100 mg by mouth twice daily. 3. Prilosec 40 mg by mouth twice daily. 4. Claritin 10 mg by mouth daily. 5. Lispro 15 units subcu t.i.d. with meals. 6. Lipitor 20 mg by mouth daily. 7. Metolazone 2.5 mg as needed. 8. Spironolactone 50 mg by mouth in the morning. 9. [place]-3 fatty acids 1000 mg per tablet - 2 tablets by mouth twice daily. 10. Olopatadine 0.1% strength one drop to both eyes twice daily. 11. Mometasone 220 mcg 2 puffs inhaled daily (Asmanex 220). 12. Magnesium hydroxide 30 mL by mouth daily as needed. 13. Fluticasone nasal spray 50 mcg strength - 2 sprays both nares daily. 14. Vitamin B12 500 mcg daily. 15. Insulin glargine 85 units subcu q.p.m. and 100 units subcu q.a.m. 16. Advair Diskus 500/50 strength 1 inhalation twice daily. 17. Vitamin D 1000 units by mouth twice daily. 18. Allopurinol 100 mg by mouth daily. 19. Oxycodone/acetaminophen (Percocet 5/325) 1 tab by mouth every 4 hours p.r.n. pain. 19. Torsemide 20 mg tabs 40 mg daily or 60 mg if fluid retaining. 20. Polyethylene glycol/MiraLAX 1 packet by mouth daily as needed. 21. Montelukast/Singulair 10 mg by mouth daily. 22. Metoprolol XL (Toprol) 100 mg by mouth twice daily. 23. Tradjenta 5 mg by mouth daily. 24. Albuterol/Ventolin inhaler 2 puffs inhaled q.4 hours p.r.n. ALLERGIES: 1. LATEX ALLERGY verified. 2. SHELLFISH DERIVED ALLERGY. 3. CEPHALEXIN/KEFLEX. 4. DOFETILIDE/TIKOSYN. 5. EGG DERIVED, adverse reaction. 6. ENOXAPARIN, adverse reaction. FAMILY HISTORY: Mother passed in her 50s secondary to CVA with coronary artery disease and rheumatoid arthritis. Father passed in his 90s of a CVA with CAD. SOCIAL HISTORY: The patient denies tobacco, alcohol, or recreational drugs. She lives with her son. She is full code. REVIEW OF SYSTEMS: A 14-system review was accomplished at the bedside at the point of admission. This was largely negative except for the pertinent positives as mentioned above in the HPI and past medical history. Pertaining to her respiratory system, she did have chest pain as discussed above. She has no GI upset. There are no new skin rashes. There is no focal weakness or concern for neurologic process. The patient denies any recent fevers. There has been no fall or difficulty with ambulation. Her mental status and mood are normal. PHYSICAL EXAMINATION ON ADMISSION GENERAL APPEARANCE: Jann is an elderly but stable appearing woman, in no apparent distress at rest. She is short of breath with exertion. She is awake , alert, and oriented x3, and answering questions appropriately. VITAL SIGNS: Temperature 97.2 degrees Fahrenheit, blood pressure 110s/60s to 80s, heart rate 80s and regular, respirations are mid 10s and unlabored, oxygen saturation mid 90s on 4 L nasal cannula (increased requirement). HEENT: Oropharynx is clear. Mucous membranes are moist. NECK: Jugular venous distention is increased with the patient at 45 degrees to about 8 cm of elevation above the sternoclavicular joint. CHEST: Diminished breath sounds anteriorly and posteriorly with crackles at the bases in addition to fine faint wheezing. No accessory muscle use was appreciated. HEART: Irregularly irregular consistent with atrial fibrillation. ABDOMEN: Obese but nontender. No epigastric tenderness separable from her chest wall tenderness. Bowel sounds are present. EXTREMITIES: Without clubbing or cyanosis. There is 1+ edema bilaterally in both lower legs and they are symmetric. NEUROLOGIC: No focal, sensory, motor proprioception component deficiencies. The patient is able to ambulate independently, but is labored with respect to her breathing. LYMPH: No adenopathy. SKIN: Dry and intact. No rashes, lesions, or breakdown. PSYCH: Normal affect. No acute anxiety or depression and she has got excellent medical recall. She had a very lucid discussion with me regarding her dietary noncompliance. ADMISSION DATA: On admission, white blood cell count normal at 7.5, hemoglobin 11.4, platelets 150. Chemistry value significant for an abnormal BUN and creatinine with BUN 55 and creatinine 2.74 with an abnormal ratio of 20.1 and a glucose elevated at 240. Her LFTs were generally unremarkable with an AST of 14 , ALT of 13, alk phos 77. Total bilirubin normal at 0.8. Her CRP was elevated at 17.88. Albumin level preserved at 3.8. Her electrolytes were unremarkable other than a modestly diminished chloride at 99. Chest x-ray at admission showed cardiomegaly with likely chronic interstitial edema and vascular congestion. Her EKG did not show acute ischemia. IMPRESSION: Ms. Forte is a 77-year-old woman with a history of both chronic obstructive pulmonary disease and diastolic heart failure, who presents with shortness of breath and hypoxic respiratory failure from chronic obstructive pulmonary disease and diastolic congestive heart failure. With respect to her chronic obstructive pulmonary disease, I am going to administer IV steroids at q.8 hour intervals to get control of her airway inflammation whilst giving supplemental oxygen and IV antibiotics. At the point of discharge, she will be given a prednisone taper starting at 50 mg and descending quickly down over 10 days using 30, 10 mg tablets - this will be described in the discharge instructions. She will also receive oral azithromycin to address her potentially infectious cause of her chronic obstructive pulmonary disease flare. With respect to her diastolic heart failure exacerbation, I am going to give her a dose or two of IV Lasix and can increase her torsemide dose at discharge. Threshold for discharge would be reducing her oxygen requirement down to 2 L nasal cannula or less. The patient is in agreement with this plan. All other medications will be continued. HOSPITAL COURSE AND DISCHARGE SUMMARY: Ms. Forte did very well overnight with net diuresis of over 1 L. The patient subjectively felt well this morning and walking. I believe she is motivated because she had a family member give to a new baby in the maternal child unit here at [facility] and she was requesting discharge to go and visit her family. It does seem that her airway is less inflamed today as there is less wheezing than I experienced yesterday at admission. The patient is ambulating with only 2 L and her oxygen saturation did not drop below 89%. She has access to oxygen at home and is stable for discharge at this time. In addition to the outpatient medications detailed above (THAT ARE NOT OTHERWISE CHANGED), I am prescribing the followin. An increase in her torsemide dose to 60 mg a day for the following week until she follows up with Dr. Lopez, her outpatient primary care provider. 2. Prednisone taper starting at 50 mg daily and decreasing by 10 mg every 2 days and stopping after the 10th day. 3. Azithromycin 500 mg by mouth daily for 5 days, then stop. PRINCIPAL DISCHARGE DIAGNOSES: Chronic obstructive pulmonary disease exacerbation with hypoxic respiratory failure and also a diastolic heart failure exacerbation owing to fluid overload secondary to dietary noncompliance. Ms. Forte was given return to ED instructions and has to make a followup appointment in the next week with her primary care doctor. TIME SPENT: Total time taken to admit Ms. Forte on 05/01/18 was 75 minutes, greater than half the time was spent going over the admission history and physical with the patient and separately 45 minutes was spent on her discharge on 05/02/18 explaining return to ED instructions and explaining the rationale for her new outpatient medications. [id number]/[facility] #: [id number] MAGD[place]
== END 2018-05-02 14:00 | disposition home or self-care (01) ==
LOC: ED 11:55 → MED 15:31
PROVIDERS: ADMIT Internal Medicine; ATTEND Internal Medicine
DX: J44.1 Chronic obstructive pulmonary disease with (acute) exacerbation (principal); R06.02 Shortness of breath; E11.9 Type 2 diabetes mellitus without complications; Z79.4 Long term (current) use of insulin; N18.4 Chronic kidney disease, stage 4 (severe); I48.91 Unspecified atrial fibrillation; Z79.01 Long term (current) use of anticoagulants; Z95.0 Presence of cardiac pacemaker; I50.9 Heart failure, unspecified; I10 Essential (primary) hypertension; E78.5 Hyperlipidemia, unspecified; G47.33 Obstructive sleep apnea (adult) (pediatric); K21.9 Gastro-esophageal reflux disease without esophagitis; M10.9 Gout, unspecified; F41.9 Anxiety disorder, unspecified
CPT/HCPCS: 36415; 71045; 80048; 80053; 83605; 84484; 85025; 86140; 87040; 93005; 94640; 96374; 96375; 99284; A9270-GY; G0378; J0456; J1940; J2270; J2930

== ENCOUNTER 2018-06-19 12:46 | Inpatient (IN) | payer MEDICARE ==
--- NOTE | 2018-06-19 13:41 | ED ---
Complex/Multi-Sys Presentation - HPI Summary HPI Summary: 77 year old F presenting to [facility] complains of runny nose since three days ago. The patient rates the pain 8/10 in severity. Symptoms aggravated by nothing. Symptoms alleviated by nothing. Patient reports congestion and productive cough. Patient denies chest pain. She additionally complains of fever since this morning. - History Of Current Complaint Chief Complaint: EDUpperRespComplaint Time Seen by Provider: 06/19/18 13:26 Hx Obtained From: Patient Onset/Duration: Lasting Days - 3, Still Present Timing: Constant Aggravating Factor(s): Nothing Alleviating Factor(s): Nothing Associated Signs And Symptoms: Positive: Other - congestion, productive cough, fever, chest pain - Allergies/Home Medications Allergies/Adverse Reactions: Allergies Allergy/AdvReac Type Severity Reaction Status Date / Time latex Allergy Swelling Verified 06/19/18 12:56 shellfish derived Allergy Swelling Verified 06/19/18 12:56 Of Face,Lips,& Throat cephalexin [From Keflex] AdvReac Mild Facial Verified 06/19/18 12:56 Redness/Flushing dofetilide [From Tikosyn] AdvReac Palpitation Verified 06/19/18 12:56 s enoxaparin [From Lovenox] AdvReac "blood too Verified 06/19/18 12:56 thin" PMH/Surg Hx/FS Hx/Imm Hx Previously Healthy: No Endocrine/Hematology History: Reports: Hx Anticoagulant Therapy, Hx Blood Transfusions, Hx Diabetes, Hx Anemia, Other Endocrine/Hematological Disorders Cardiovascular History: Reports: Hx Angina, Hx Auto Implanted Cardiovert Defib, Hx Cardiomegaly, Hx Congestive Heart Failure, Hx Coronary Artery Disease, Hx Hypercholesterolemia, Hx Hypertension, Hx Myocardial Infarction, Hx Pacemaker/ ICD, Hx Syncope Denies: Hx Valvular Heart Disease Respiratory History: Reports: Hx Asthma, Hx Chronic Obstructive Pulmonary Disease (COPD), Hx Pleural Effusion, Hx Pulmonary Edema, Hx Sleep Apnea GI History: Reports: Hx Diverticulosis, Hx Gall Bladder Disease, Hx Gastroesophageal Reflux Disease, Other GI Disorders - Enlarged liver, polyps History: Reports: Hx Chronic Renal Failure, Hx Kidney Stones Denies: Hx Renal Disease Musculoskeletal History: Reports: Hx Arthritis, Hx Back Problems, Hx Gout Denies: Hx Osteoporosis Sensory History: Reports: Hx Cataracts, Hx Contacts or Glasses, Hx Vision Problem - blurry, Other Sensory Impairments - Neuropathy Denies: Hx Deafness, Hx Hearing Aid Opthamlomology History: Reports: Hx Cataracts, Hx Contacts or Glasses, Hx Vision Problem - blurry, Other Sensory Impairments - Neuropathy Neurological History: Reports: Hx Headaches, Hx Peripheral Neuropathy Denies: Hx Seizures, Hx Transient Ischemic Attacks (TIA) Psychiatric History: Reports: Hx Anxiety, Hx Depression - Surgical History Surgery Procedure, Year, and Place: Cholecystectomy 29 years ago. Appy 29 years ago. HYSTERECTOMY 29 years ago. Pacemaker placement 2009 Hx Anesthesia Reactions: No - Immunization History Date of Tetanus Vaccine: Unk Date of Influenza Vaccine: Fall 2014 Infectious Disease History: No Infectious Disease History: Denies: Traveled Outside the [place] in Last 30 Days - Family History Known Family History: Positive: Cardiac Disease - Brother with AK at age 34 - Social History Alcohol Use: None Hx Substance Use: No Substance Use Type: Reports: None Substance Use Comment - Amount & Last Used: tramadol; oxycodone Hx Tobacco Use: No Smoking Status (MU): Never Smoked Tobacco Have You Smoked in the Last Year: No Review of Systems Positive: Fever Positive: Other - runny nose, congestion Positive: Chest Pain Positive: Cough All Other Systems Reviewed And Are Negative: Yes Physical Exam - Summary Physical Exam Summary: VITAL SIGNS: Reviewed. GENERAL: Patient is a well-developed and nourished female who is lying comfortable in the stretcher. Patient is not in any acute respiratory distress. She looks debilitated and weak. HEAD AND FACE: No signs of trauma. No ecchymosis, hematomas or skull depressions. No sinus tenderness. EYES: PERRLA, EOMI x 2, No injected conjunctiva, no nystagmus. EARS: Hearing grossly intact. Ear canals and tympanic membranes are within normal limits. MOUTH: Oropharynx within normal limits. NECK: Supple, trachea is midline, no adenopathy, no JVD, no carotid bruit, no c- spine tenderness, neck with full ROM. CHEST: Symmetric, no tenderness at palpation LUNGS: Some crackles in both bases of the lungs CVS: Regular rate and rhythm, S1 and S2 present, no murmurs or gallops appreciated. ABDOMEN: Soft, non-tender. No signs of distention. No rebound no guarding, and no masses palpated. Bowel sounds are normal. EXTREMITIES: FROM in all major joints, no edema, no cyanosis or clubbing. NEURO: Alert and oriented x 3. No acute neurological deficits. Speech is normal and follows commands. SKIN: Dry and warm Triage Information Reviewed: Yes Vital Signs On Initial Exam: Initial Vitals Temp Pulse Resp BP Pulse Ox 99.7 F 75 16 141/73 91 06/19/18 12:50 06/19/18 12:50 06/19/18 12:50 06/19/18 12:50 06/19/18 12:50 Vital Signs Reviewed: Yes Diagnostics - Vital Signs Vital Signs Temp Pulse Resp BP Pulse Ox 06/19/18 12:50 99.7 F 75 16 141/73 91 - Laboratory Result Diagrams: 06/19/18 13:41 06/19/18 13:41 Lab Statement: Any lab studies that have been ordered have been reviewed, and results considered in the medical decision making process. - Radiology CXR Radiology Interpretation Completed By: Radiologist - SIMILAR THE PRIOR CHEST X- RAY FINDINGS ARE CONSISTENT WITH CARDIOGENIC PULMONARY EDEMA WITH A MILD DEGREE OF VASCULAR CONGESTION. ED physician has reviewed this report. - EKG 1424 Cardiac Rate: NL - 74 BPM EKG Rhythm: Atrial Fibrillation EKG Interpretation: No ST elevations. Similar to EKG 05/01/18 Re-Evaluation - Re-Evaluation First Eval Re-Evaluation Time: 15:57 Comment: patient feels better and is ready to go home Complex Multi-Symp Course/Dx Assessment/Plan: This patient is a 77-year-old female who presents to the emergency department with a chief complaint of having weakness, fatigue, runny nose, post nasal drip, productive cough with yellowish and greenish phlegm, and fever for the last couple days. Patient denies any chest pain or shortness of breath. Past medical history significant for CHF, diabetes, acute renal failure , chronic atrial fibrillation on Coumadin, dyslipidemia, hypertension, morbid obesity, and constipation. Blood work without any significant abnormality except for what was a count of 13.1, potassium at 3.0 for which the patient was given potassium chloride. BUN 36 and creatinine is 2.14. CPK is 297, CRP of 70 , BNP is 129. Influenza A and B is negative. EKG is an atrial paced rhythm at 76/m. EKG is similar to previous EKG done on a 05/01/18. Chest x-ray impression : Similar to prior chest x-ray findings consistent with cardiogenic pulmonary edema with a mild degree of vascular congestion. Since the patient CRP is elevated and she has productive cough with phlegm I would place the patient azithromycin for possible bronchitis. At this point I discussed my physical exam findings and test results with the patient and the need to follow with the primary care physician. Patient reports that she is feeling better and she is eating and drinking. The patient ambulated out of the emergency department. The patient also was recommended to return to the emergency department she develops any fevers, chills, chest pain, shortness of breath or worsening symptoms. She understands and agrees. Before the patient was discharged we noticed that the O2 sat below 90 without oxygen. Therefore we did an ABG and shows that the pH is 7.47, PCO2 is 54 PO2 64 and O2 sat is 94.1 and 2 L of oxygen. The patient was given 20 mg of Lasix. At this time I discussed the findings and test results with Dr. Mccormack. That the patient for admission. The patient is hemodynamically stable alert and oriented 3. - Diagnoses Provider Diagnoses: Cough, URI (upper respiratory infection), Bronchitis, Hypoxia, CHF exacerbation Discharge - Sign-Out/Discharge Documenting (check all that apply): Patient Departure - Admit - Discharge Plan Condition: Stable Disposition: ADMITTED TO [facility] - Billing Disposition and Condition Condition: STABLE Disposition: Admitted to [facility] - Attestation Statements Document Initiated by Brittni: Yes Documenting Scribe: Stella Penaloza Provider For Whom Brittni is Documenting (Include Credential): Tato Eng MD Scribe Attestation: I, Stella Penaloza, scribed for Tato Eng MD on 06/19/18 at 2141. Scribe Documentation Reviewed: Yes Provider Attestation: The documentation as recorded by the Stella irvin accurately reflects the service I personally performed and the decisions made by me, Tato Eng MD
[2018-06-19 13:48] LABS: Hematocrit 39 % (35-47); Hemoglobin 12.5 g/dl (12.0-16.0); Mean Corpuscular HGB Conc 32 g/dl (31-36); Mean Corpuscular Hemoglobin 27 pg (27-31); Mean Corpuscular Volume 84 fL (80-97); Mean Platelet Volume 10.1 um3 (7.4-10.4); Platelet Count 146 10^3/ul (150-450); Red Blood Count 4.61 10^6/ul (4.00-5.40); Red Cell Distribution Width 20 % (10.5-15); White Blood Count 13.1 10^3/ul (3.5-10.8)
[2018-06-19 14:06] LABS: EGFR Non-African American 22.5 (>60)
[2018-06-19 14:20] LABS: ABS Basophils 0.1 10^3/ul (0-0.2); ABS Eosinophils 0.3 10^3/ul (0-0.6); ABS Lymphocytes 2.1 10^3/ul (1.0-4.8); ABS Monocytes 1.8 10^3/ul (0-0.8); ABS Neutrophils 8.8 10^3/ul (1.5-7.7); ABS Nucleated RBC 0 10^3/ul; Eosinophil % 2.3 % (0-6); Lymphocyte % 15.8 % (25-47); Nucleated Red Blood Cells % 0.2
--- NOTE | 2018-06-19 15:41 | RAD ---
INDICATION: "Cold-like symptoms" COMPARISON: Chest x-ray dated May 01, 2018 TECHNIQUE: PA and lateral views of the chest were obtained. FINDINGS: The left upper chest cardiac pacemaker 2 leads overlying the heart is unchanged in the prior chest x-ray. There is a mild degree of cardiomegaly similar in appearance to the previous chest x-ray. The contours of the heart and mediastinum are otherwise normal. There is increased density overlying the central lower lungs. The pulmonary vasculature appears mildly engorged and indistinct. The costophrenic angles are well-defined. Visualized bones are normal for the patient's age. There is no radiographic evidence of free air beneath the diaphragm IMPRESSION: SIMILAR THE PRIOR CHEST X-RAY FINDINGS ARE CONSISTENT WITH CARDIOGENIC PULMONARY EDEMA WITH A MILD DEGREE OF VASCULAR CONGESTION.
[2018-06-19] MEDS ORDERED: Furosemide IV* 10 MG/ML 2 ML VIAL (20 MG) IV SLOW PU ONE (17:12)
[2018-06-19] MEDS ORDERED: Al Hydrox/Mg Hydrox/Simet LIQ* 30 ML UDC PO PRN (18:03)
[2018-06-19] MEDS ORDERED: Albuterol/Ipratropium NEB.SOL* Albuterol 2.5 MG/Ipratropium 0.5 MG 3 ML INH PRN (18:03)
[2018-06-19] MEDS ORDERED: Magnesium Hydroxide LIQ* 30 ML UDC PO PRN (18:03)
[2018-06-19] MEDS ORDERED: Ondansetron INJ* 2 MG/ML VIAL IV PRN (18:03)
[2018-06-19] MEDS ORDERED: Acetaminophen TAB* 325 MG PO PRN (18:03)
[2018-06-19] MEDS ORDERED: Polyethylene Glycol 3350* 17 GM PACKET PO PRN (18:14)
[2018-06-19] MEDS ORDERED: Albuterol HFA INHALER* 8 gm MDI INH PRN (18:14)
[2018-06-19] MEDS ORDERED: Dextrose 50% Syringe 50 ML* 25 GM/50 ML SYRINGE IV PUSH PRN (18:21)
[2018-06-19 19:01] LABS: INR 1.47 (0.77-1.02)
[2018-06-19] MEDS ORDERED: Warfarin TAB(*) 7.5 MG PO ONE (20:00)
[2018-06-19] MEDS: methylPREDNISolone SOD 40 MG* 1 ML VIAL IV SCH (20:50)
[2018-06-19] MEDS: Azithromycin IV(*) 500 MG in NS 0.9% 250 ML* 250 ML IVPB SCH (20:50)
[2018-06-19] MEDS: Furosemide IV* 10 MG/ML VIAL (40 MG) IV SLOW PU SCH (20:50)
[2018-06-19] MEDS: Pregabalin CAP(*) 50 MG PO SCH (20:51)
[2018-06-19] MEDS: Metoprolol Succinate XL TAB* 50 MG PO SCH (20:51)
[2018-06-19] MEDS: oxyCODONE/Acetamin 5/325 MG* TAB PO PRN (20:52)
[2018-06-19] MEDS: Cholecalciferol TAB* 1000 UNITS PO SCH (20:52)
[2018-06-19] MEDS: Mometasone/Formoter 100/5 MDI INH SCH (21:23)
[2018-06-19] MEDS: Insulin LISPRO* 1 UNITS UNIT SUBCUT SCH (22:26)
[2018-06-19] MEDS: Heparin VIAL(*) 5000 UNITS/ML VIAL (FIVE THOUSAND) SUBCUT SCH (22:31)
--- NOTE | 2018-06-20 00:47 | HP ---
AMENDED REPORT NOW INCLUDES COSIGNER DESIGNATION - ESIGNED BEFORE ADJUSTMENT CC: Dr. Lopez * ADMISSION HISTORY AND PHYSICAL: DATE OF ADMISSION: 06/19/18 PATIENT OF ATTENDING HOSPITALIST: Josefina Patel MD PRIMARY CARE PHYSICIAN: January Lopez MD ATTENDING HOSPITALIST WHILE THE PATIENT HERE: Jemal Jacobs MD * ( DICTATED BY OSMIN MOFFETT) CHIEF COMPLAINT: Chest pain, cough, and shortness of breath. HISTORY OF PRESENT ILLNESS: Mrs. Forte is a 77-year-old female with multiple complicated medical history significant for hypertension, history of atrial fibrillation for which she has been chronically on Coumadin, chronic kidney disease at stage 4, insulin-dependent type 2 diabetes mellitus as well as hyperlipidemia, sleep apnea, GERD, gout, and anxiety and COPD exacerbation who presented to the emergency room earlier today with complaints of upper respiratory symptoms. The patient notes that for the past 2 to 3 days she has been having increasing congestion, productive cough with a clear sputum and today, she spiked a fever up to 103. She denies any audible wheezing; however, she noticed worsening shortness of breath at rest. She is a known COPD patient who is oxygen dependent at home and also had history of sleep apnea for which she has been noncompliant with her CPAP. She tells me that she uses oxygen most of the day at 2 L setting at home. She had noticed increased swelling of her ankles as well. She was recently admitted to the hospital back in early April with similar complaints of shortness of breath that were thought to be secondary to COPD exacerbations. The patient denies any chest pain, headache, dizziness, weakness, calf pain, or history of DVT or PE. She was evaluated in the emergency room and her laboratory workup show a mild leukocytosis with white count of 13,000. Her chemistry panel showed decreased potassium of 3 as well as elevated BNP of 129 and C-reactive protein of 70. Her chest x-ray was done revealing no acute cardiopulmonary issue and her EKG showed no significant ST changes. Her ABGs were drawn and the patient was initially thought to be discharged home with diagnosis of bronchitis and COPD exacerbation; however, her ABGs came back showing marked hypoxemia with pO2 of 46 for which we were asked to see the patient for further evaluation and to consider admission. The patient has been maintaining good oxygen saturation of 97% on 2 L via nasal cannula. During the entire time of the interview, she did not express any shortness of breath or talking in short sentences. She denied any chest pain or history of PE. PAST MEDICAL HISTORY: Significant for: 1. Type 2 diabetes mellitus, which is insulin dependent. 2. Chronic kidney disease, stage 4. 3. Atrial fibrillation, on Coumadin. 4. Polymorphic VT and AV pacemaker placement. 5. History of pericardial tamponade. 6. Coronary artery disease and prior congestive heart failure. 7. Hypertension. 8. Hyperlipidemia. 9. Obstructive sleep apnea for which she is noncompliant with her CPAP. 10. GERD. 11. Gout. 12. Anxiety. PAST SURGICAL HISTORY: Significant for hysterectomy, cholecystectomy, pacemaker placement, cardiac catheterization with stent placement in the past. CURRENT MEDICATIONS: The patient has a long list of medications at home includin. Albuterol MDI 2 puffs inhaled q.4 hours as needed for shortness of breath. 2. Lipitor 20 mg p.o. daily. 3. Vitamin D 1000 units p.o. daily. 4. Advair Diskus 500/50 one puff inhaled b.i.d. 5. Insulin Lantus 85 units subcu q.p.m. and insulin Lantus 100 units subcu q.a.m. 6. She also takes insulin lispro 15 units subcu t.i.d. with meals. 7. Tradjenta 5 mg p.o. daily. 8. Claritin 10 mg p.o. daily. 9. Metoprolol 100 mg p.o. daily. 10. Asmanex 220 mcg MDI 2 puffs inhaled daily. 11. Montelukast 10 mg p.o. daily. 12. Olopatadine ophthalmic solution 0.1% one drop both eyes once daily. 13. Pioche-3 fatty acid 2 caps p.o. b.i.d. 14. Prilosec 40 mg p.o. daily. 15. Percocet 5/325 one tablet p.o. q.4 hours as needed for pain. 16. MiraLAX 17 g p.o. daily. 17. Lyrica 50 mg p.o. b.i.d. 18. Aldactone 50 mg p.o. daily. 19. Demadex 40 mg p.o. daily. 20. Coumadin 7 mg p.o. q.h.s. ALLERGIES: Multiple including LATEX, SHELLFISH, CEPHALEXIN, and LOVENOX. SOCIAL HISTORY: The patient is retired. She is a nonsmoker. Denies alcohol intake. She lives with her son, Horace, who is her healthcare proxy. She is accompanied by her daughter, Rosangela in the room. The patient wishes to be a full code. FAMILY HISTORY: Mother in her 50s secondary to CVA and history of coronary artery disease. Father from CVA . REVIEW OF SYSTEMS: See HPI. Otherwise, 12 points review of systems were examined and they were essentially negative. PHYSICAL EXAMINATION GENERAL: She is a pleasant, morbidly obese, female, appears comfortable, and in no acute distress or discomfort at the time of admission. VITAL SIGNS: Temperature 99.7, pulse of 75, respirations of 18 with O2 sat of 97% on 2 L oxygen via nasal cannula, blood pressure of 103/46. HEENT: Head is normocephalic, atraumatic. Sclerae are anicteric. PERRLA. EOMs intact. Oropharynx is pink and moist. NECK: Supple. Trachea midline. No cervical adenopathy, or thyromegaly. LUNGS: Decreased breath sounds throughout. There is minimal bibasilar rales noted, but no wheezes or rhonchi. HEART: Regular rate and rhythm. Normal S1 and S2 without rubs, murmurs, or gallops. BACK: With normal curvature. No CVA tenderness. ABDOMEN: Soft, round, and obese, nontender and nondistended. There are no hernias, masses, or hepatosplenomegaly. A midline lower scar noted from prior hysterectomy. No evidence of ventral hernia. RECTAL: Exam deferred at this time. EXTREMITIES: Without cyanosis or clubbing. There is 2+ pitting edema bilaterally to the ankles. NEUROLOGIC: She is awake, alert, and oriented x3. Tongue is midline. Handgrip is equal bilaterally and sensation is intact throughout. LABORATORY WORKUP: CBC with white count of 13,000, hemoglobin 12.5, hematocrit 39, and platelets of 146. Chemistry with sodium of 138, potassium of 3, chloride 95, CO2 of 35, BUN of 36, creatinine of 2.14, which both have been at her baseline given stage 4 kidney disease. Her C-reactive protein is 70. BNP is 129. Influenza A and B rapid test was negative. ABG showed pH of 7.51, pCO2 of 49, pO2 of 46, and bicarb of 35. This was done on presentation prior to oxygen therapy. ACCESSORY DIAGNOSTIC DATA: Chest x-ray showed no evidence of any acute cardiopulmonary process. IMPRESSION: A 77-year-old female with multiple complicated medical issues including hypertension, hyperlipidemia, insulin-dependent diabetes mellitus, chronic kidney disease, atrial fibrillation, obstructive sleep apnea, and chronic obstructive pulmonary disease with exacerbation who presented to the emergency room today with upper respiratory symptoms including productive cough for 3 days, shortness of breath, and fever who was found to be in having another episode of chronic obstructive pulmonary disease exacerbation likely congestive heart failure and will be admitted under hospitalist services for the following. ASSESSMENT AND PLAN: 1. Chronic obstructive pulmonary disease exacerbation with bronchitis. I suspect the patient is having another exacerbation of her chronic obstructive pulmonary disease that was triggered with likely a viral illness. She exhibits signs of upper respiratory infection, now progressed to productive cough and occasional shortness of breath. She spiked a fever today despite negative chest x-ray for any pneumonia. I will treat her empirically with azithromycin considering possible bronchitis and also we will cover her with all her nebulizers in addition to steroid therapy. I will maintain her on oxygen therapy as well and repeat her ABGs. She will be admitted to telemetry unit for close observation. I discussed with her the necessity of using her CPAP and being compliant with it at night. 2. Acute hypoxic respiratory failure. The patient presents with decreased oxygen saturation and now with decreased pO2 on her ABG. She appears to be clinically stable despite the low number and I will repeat her ABGs again after she was given oxygen. 3. Hypertension. I will continue the patient on her beta-julien and we will hold her Aldactone for now and give her Lasix given her elevated BNP and chest x -ray showing pulmonary congestion, which likely is consistent with congestive heart failure as well. 4. Atrial fibrillation. We will continue her metoprolol and her Coumadin. INR was not checked in the emergency room and I added that test to be done tonight and we will adjust her Coumadin dose accordingly. 5. Hyperlipidemia. We will continue her statin therapy. 6. Obstructive sleep apnea. We will continue CPAP treatment. 7. Gastroesophageal reflux disease. We will continue PPI coverage. 8. Hypokalemia. We will replace her potassium. 9. DVT prophylaxis. The patient at highest risk given her congestive heart failure, swelling of lower extremity and her advanced age. She will be covered with both SCDs and subcu heparin. 10. Code status. She wishes to be a full code. TIME SPENT: Approximately 60 minutes were spent admitting this patient for which greater than 50% on taking history and performing physical exam. I went on and discussed the case with my attending, who agreed to plan of care and will follow her up accordingly. OMSIN JIMÉNEZ [id number]/CPS #: [id number] MAGDALENA
[2018-06-20] MEDS: methylPREDNISolone SOD 40 MG* 1 ML VIAL IV SCH ×2 (03:13→11:00)
[2018-06-20] MEDS: Heparin VIAL(*) 5000 UNITS/ML VIAL (FIVE THOUSAND) SUBCUT SCH ×3 (05:29→21:03)
[2018-06-20 05:48] LABS: ABS Basophils 0 10^3/ul (0-0.2); ABS Eosinophils 0 10^3/ul (0-0.6); ABS Lymphocytes 0.8 10^3/ul (1.0-4.8); ABS Monocytes 0.1 10^3/ul (0-0.8); ABS Neutrophils 7.7 10^3/ul (1.5-7.7); ABS Nucleated RBC 0 10^3/ul; Eosinophil % 0.2 % (0-6); Hematocrit 37 % (35-47); Lymphocyte % 9.3 % (25-47); Mean Corpuscular HGB Conc 33 g/dl (31-36); Mean Corpuscular Hemoglobin 28 pg (27-31); Mean Corpuscular Volume 85 fL (80-97); Mean Platelet Volume 9.1 um3 (7.4-10.4); Nucleated Red Blood Cells % 0.3; Platelet Count 127 10^3/ul (150-450); Red Blood Count 4.33 10^6/ul (4.00-5.40); Red Cell Distribution Width 21 % (10.5-15); White Blood Count 8.7 10^3/ul (3.5-10.8)
[2018-06-20 06:12] LABS: EGFR Non-African American 20.5 (>60)
[2018-06-20] MEDS: Mometasone/Formoter 100/5 MDI INH SCH ×2 (07:36→19:49)
[2018-06-20] MEDS: Cetirizine* 10 MG TAB PO SCH (08:22)
[2018-06-20] MEDS: Pregabalin CAP(*) 50 MG PO SCH ×2 (08:22→21:02)
[2018-06-20] MEDS: Montelukast Sodium TAB* 10 MG PO SCH (08:22)
[2018-06-20] MEDS: Furosemide IV* 10 MG/ML VIAL (40 MG) IV SLOW PU SCH ×2 (08:22→16:18)
[2018-06-20] MEDS: Insulin GLARGINE(*) 1 UNITS UNIT SUBCUT SCH (08:22)
[2018-06-20] MEDS: Metoprolol Succinate XL TAB* 50 MG PO SCH ×2 (08:22→21:02)
[2018-06-20] MEDS: Atorvastatin* 20 MG TAB PO SCH (08:22)
[2018-06-20] MEDS: Cholecalciferol TAB* 1000 UNITS PO SCH ×2 (08:22→21:03)
[2018-06-20] MEDS: Omeprazole CAP* 20 MG PO SCH (08:22)
[2018-06-20] MEDS: Linagliptin (NF) 5 MG TAB PO SCH (08:23)
[2018-06-20] MEDS: Insulin LISPRO* 1 UNITS UNIT SUBCUT SCH ×5 (08:23→22:11)
[2018-06-20] MEDS ORDERED: Dextrose 50% Syringe 50 ML* 25 GM/50 ML SYRINGE IV PUSH PRN ×4 (08:25→21:52)
[2018-06-20] MEDS ORDERED: Mometasone 220 MCG MDI INH SCH (09:00)
[2018-06-20] MEDS ORDERED: Acetaminophen TAB* 325 MG PO PRN (10:28)
[2018-06-20] MEDS ORDERED: Insulin LISPRO* 1 UNITS UNIT SUBCUT SCH (11:30)
[2018-06-20] MEDS ORDERED: Insulin LISPRO* 1 UNITS UNIT SUBCUT STA ×2 (12:18→17:22)
[2018-06-20] MEDS: GuaiFENesin DM* 5 ML UDC PO SCH ×2 (12:53→19:33)
[2018-06-20] MEDS: oxyCODONE/Acetamin 5/325 MG* TAB PO PRN ×2 (12:57→19:41)
[2018-06-20 13:28] LABS: Urine Appearance Clear; Urine Blood Negative (Negative); Urine Color Straw; Urine Ketones Negative (Negative); Urine Protein Negative (Negative); Urine Specific Gravity 1.009 (1.010-1.030); Urine Urobilinogen Negative (Negative)
--- NOTE | 2018-06-20 13:30 | PN ---
Subjective Date of Service: 06/20/18 Interval History: Pt seen and examined. Meds and labs reviewed. CC: non-productive cough with mild hemoptysis ROS: Denied JENSEN/dizziness, F/C, N/V, CP, SOB, increased cough, sputum production , abd pain, diarrhea, constipation, dysuria, myalgias, arthralgias, throat pain , and new skin lesions. The rest of the 14 point ROS are unremarkable. PHYSICAL EXAM: GEN APPEARANCE: Awake, not in acute distress HEENT: NC/AT, PERRLA, moist oral mucosa, (-) throat erythema NECK: Soft, supple, (-) cervical LAD, (-)JVD HEART: S1S2 WNL, RRR, No MRG CHEST: (+)Bibasal crackles, GAE, No W/R/R ABD: Soft, ND/NT, NABS 4x Q EXT: No C/C/BLLE (+)1 SKIN: Warm to touch PSYCH: No active psychosis, hallucinations, depression, SI/HI Objective Active Medications: Acetaminophen (Tylenol Tab*) 650 mg PO Q6H PRN PRN Reason: FEVER/PAIN Al Hydrox/Mg Hydrox/Simethicone (Maalox Plus*) 30 ml PO Q6H PRN PRN Reason: INDIGESTION Albuterol (Ventolin Hfa Inhaler*) 2 puff INH Q4H PRN PRN Reason: WHEEZING Last Admin: 06/20/18 12:30 Dose: 2 puff Albuterol/Ipratropium (Duoneb (Albuterol 2.5 Mg/Ipratropium 0.5 Mg)) 1 neb INH [id number] AWAKE PRN PRN Reason: sob/wheexing Atorvastatin Calcium (Lipitor*) 20 mg PO DAILY [facility] Last Admin: 06/20/18 08:22 Dose: 20 mg Cetirizine HCl (Zyrtec*) 10 mg PO DAILY [facility] Last Admin: 06/20/18 08:22 Dose: 10 mg Cholecalciferol (Vitamin D Tab*) 1,000 units PO BID [facility] Last Admin: 06/20/18 08:22 Dose: 1,000 units Dextrose (D50w Syringe 50 Ml*) 12.5 gm IV PUSH .FOR FS < 60 - SS PRN PRN Reason: FS < 60 Dextrose (D50w Syringe 50 Ml*) 12.5 gm IV PUSH .FOR FS < 60 - SS PRN PRN Reason: FS < 60 Dextrose (D50w Syringe 50 Ml*) 12.5 gm IV PUSH .FOR FS < 60 - SS PRN PRN Reason: FS < 60 Furosemide (Lasix Iv*) 40 mg IV SLOW PU 0800,1700 [facility] Last Admin: 06/20/18 08:22 Dose: 40 mg Guaifenesin/Dextromethorphan (Robitussin Dm*) 10 ml PO Q8H [facility] Stop: 06/21/18 11:01 Last Admin: 06/20/18 12:53 Dose: 10 ml Heparin Sodium (Porcine) (Heparin Vial(*)) 5,000 units SUBCUT Q12H [facility] Last Admin: 06/20/18 11:00 Dose: 5,000 units Azithromycin 500 mg/ Sodium (Chloride) 250 mls @ 250 mls/hr IVPB Q24H [facility] Last Admin: 06/19/18 20:50 Dose: 250 mls/hr Insulin Glargine (Lantus(*)) 85 units SUBCUT QPM [facility] Insulin Glargine (Lantus(*)) 100 units SUBCUT QAM [facility] Last Admin: 06/20/18 08:22 Dose: 100 unit Insulin Human Lispro (Humalog*) 0 units SUBCUT ACHS [facility]; Protocol Last Admin: 06/20/18 12:26 Dose: Not Given Insulin Human Lispro (Humalog*) 10 units SUBCUT AC [facility] Linagliptin (Tradjenta (Nf)) 5 mg PO DAILY [facility] Last Admin: 06/20/18 08:23 Dose: Not Given Magnesium Hydroxide (Milk Of Magnesia Liq*) 30 ml PO Q4H PRN PRN Reason: CONSTIPATION Methylprednisolone Sodium Succinate (Solu-Medrol 40 Mg) 40 mg IV DAILY [facility] Metoprolol Succinate (Toprol Xl Tab*) 100 mg PO BID [facility] Last Admin: 06/20/18 08:22 Dose: 100 mg Mometasone Furoate/Formoterol Fumar (Dulera 100/5 Mdi*) 2 puff INH BID [facility] Last Admin: 06/20/18 07:36 Dose: 2 puff Montelukast Sodium (Singulair Tab*) 10 mg PO DAILY [facility] Last Admin: 09/23/18 08:22 Dose: 10 mg Omeprazole (Prilosec Cap*) 40 mg PO DAILY [facility] Last Admin: 06/20/18 08:22 Dose: 40 mg Ondansetron HCl (Zofran Inj*) 4 mg IV Q4H PRN PRN Reason: NAUSEA/VOMITING Oxycodone/Acetaminophen (Percocet 5/325 Tab*) 1 tab PO Q4H PRN PRN Reason: PAIN Last Admin: 06/20/18 12:57 Dose: 1 tab Polyethylene Glycol/Electrolytes (Miralax*) 17 gm PO DAILY PRN PRN Reason: CONSTIPATION Last Admin: 06/19/18 20:52 Dose: 17 gm Pregabalin (Lyrica Cap(*)) 50 mg PO BID [facility] Last Admin: 06/20/18 08:22 Dose: 50 mg Warfarin Sodium (Coumadin Tab(*)) 3 mg PO 1700 [facility]; Protocol Warfarin Sodium (Coumadin Tab(*)) 4 mg PO 1700 [facility]; Protocol Vital Signs - 8 hr 06/20/18 06/20/18 06/20/18 08:03 08:22 09:06 Temperature 97.9 F Pulse Rate 70 Respiratory 18 16 18 Rate Blood Pressure 135/68 (mmHg) O2 Sat by Pulse 100 Oximetry 06/20/18 06/20/18 06/20/18 11:04 11:05 12:30 Temperature 98.5 F Pulse Rate 70 70 Respiratory 16 18 18 Rate Blood Pressure 114/63 (mmHg) O2 Sat by Pulse 99 98 Oximetry 06/20/18 12:57 Temperature Pulse Rate Respiratory 16 Rate Blood Pressure (mmHg) O2 Sat by Pulse Oximetry Oxygen Devices in Use Now: Nasal Cannula Result Diagrams: 06/20/18 05:39 06/20/18 05:39 Microbiology and Other Data: Microbiology 06/19/18 20:45 Gram Stain - Final Sputum Expectorated 06/19/18 13:46 Influenza Types A,B Antigen - Final Nasopharyngeal Specimen received for Influenza A/B Molecular testing Assess/Plan/Problems-Billing Assessment: - Patient Problems (1) Congestive heart failure (CHF) Current Visit: No Status: Acute Code(s): I50.9 - HEART FAILURE, UNSPECIFIED SNOMED Code(s): 69350938 Comment: -Continue IV Lasix BID -Continue to monitor I/Os and daily weights -Unclear why pt is not on ASA, however, likely due to the fact that pt is on full anticoagulation with possible risk for bleedingwill hold off for now given recent report by RN that pt had hemoptysis earlier -Pt mentions he is normally on 2L NC at home and currently on 3L NC -For ambulatory saturation in AM -Pt ruled out for VTE/PE with normal D-dimer -Given pt looks comfortable and mentions her symptoms has improved, will continue beta julien at current dose, especially in the setting of known A. 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 and only mild COPD exacerbation -Will rapidly taper Solumedrol as orderd -Continue PRN nebulization -Continue Dulera (3) Cough with hemoptysis Current Visit: Yes Status: Acute Code(s): R04.2 - HEMOPTYSIS SNOMED Code(s ): 89722687 Comment: -Likely due to above -Will provide Robitussin DM as ordered (4) Atrial fibrillation Current Visit: No Status: Acute Code(s): I48.91 - UNSPECIFIED ATRIAL FIBRILLATION SNOMED Code(s): 68859619 Comment: -Continue warfarin, although currently sub-therapeutic -Continue Metoprolol (5) GERD (gastroesophageal reflux disease) Current Visit: Yes Status: Acute Code(s): K21.9 - GASTRO-ESOPHAGEAL REFLUX DISEASE WITHOUT ESOPHAGITIS SNOMED Code(s): 475404248 Comment: -Continue PPI (6) DVT prophylaxis Current Visit: Yes Status: Acute Code(s): DOC7987 - SNOMED Code(s): 457763061 Comment: -Continue warfarin as discussed Status and Disposition: -For PT eval and to perform ambulatory sats in AM
[2018-06-20] MEDS ORDERED: Warfarin TAB(*) 4 MG PO SCH (17:00)
[2018-06-20] MEDS ORDERED: Warfarin TAB(*) 3 MG PO SCH (17:00)
[2018-06-20] MEDS ORDERED: Insulin GLARGINE(*) 1 UNITS UNIT SUBCUT SCH (19:00)
[2018-06-20] MEDS: Azithromycin IV(*) 500 MG in NS 0.9% 250 ML* 250 ML IVPB SCH (20:10)
[2018-06-20] MEDS ORDERED: Insulin LISPRO* 1 UNITS UNIT SUBCUT ONE (21:52)
[2018-06-21] MEDS: GuaiFENesin DM* 5 ML UDC PO SCH ×2 (03:13→12:08)
[2018-06-21 06:25] LABS: ABS Basophils 0 10^3/ul (0-0.2); ABS Eosinophils 0 10^3/ul (0-0.6); ABS Lymphocytes 1.1 10^3/ul (1.0-4.8); ABS Monocytes 1.5 10^3/ul (0-0.8); ABS Nucleated RBC 0 10^3/ul; Eosinophil % 0.1 % (0-6); Hematocrit 35 % (35-47); Hemoglobin 11.4 g/dl (12.0-16.0); Lymphocyte % 10.6 % (25-47); Mean Corpuscular HGB Conc 32 g/dl (31-36); Mean Corpuscular Hemoglobin 27 pg (27-31); Mean Corpuscular Volume 85 fL (80-97); Nucleated Red Blood Cells % 0.3; Platelet Count 148 10^3/ul (150-450); Red Blood Count 4.16 10^6/ul (4.00-5.40); Red Cell Distribution Width 20 % (10.5-15); White Blood Count 10.6 10^3/ul (3.5-10.8)
[2018-06-21 06:44] LABS: EGFR Non-African American 19.8 (>60)
[2018-06-21] MEDS: Mometasone/Formoter 100/5 MDI INH SCH (07:37)
[2018-06-21] MEDS: Heparin VIAL(*) 5000 UNITS/ML VIAL (FIVE THOUSAND) SUBCUT SCH (08:03)
[2018-06-21] MEDS: Furosemide IV* 10 MG/ML VIAL (40 MG) IV SLOW PU SCH (08:03)
[2018-06-21] MEDS: Insulin LISPRO* 1 UNITS UNIT SUBCUT SCH ×4 (08:04→12:09)
[2018-06-21] MEDS: Omeprazole CAP* 20 MG PO SCH (08:04)
[2018-06-21] MEDS: Cholecalciferol TAB* 1000 UNITS PO SCH (08:04)
[2018-06-21] MEDS: Atorvastatin* 20 MG TAB PO SCH (08:04)
[2018-06-21] MEDS: Cetirizine* 10 MG TAB PO SCH (08:04)
[2018-06-21] MEDS: Insulin GLARGINE(*) 1 UNITS UNIT SUBCUT SCH (08:04)
[2018-06-21] MEDS: Pregabalin CAP(*) 50 MG PO SCH (08:04)
[2018-06-21] MEDS: Montelukast Sodium TAB* 10 MG PO SCH (08:04)
[2018-06-21] MEDS: Metoprolol Succinate XL TAB* 50 MG PO SCH (08:04)
[2018-06-21] MEDS: Linagliptin (NF) 5 MG TAB PO SCH (08:19)
[2018-06-21] MEDS ORDERED: methylPREDNISolone SOD 40 MG* 1 ML VIAL IV SCH (09:00)
[2018-06-21] MEDS ORDERED: Perflutren Lipid Microsphere* 3 ML VIAL ONE (09:20)
[2018-06-21] MEDS: oxyCODONE/Acetamin 5/325 MG* TAB PO PRN (10:18)
[2018-06-21 12:01] VITALS: BP 127/75
[2018-06-21] MEDS ORDERED: Dextrose 50% Syringe 50 ML* 25 GM/50 ML SYRINGE IV PUSH PRN (12:02)
[2018-06-21] MEDS ORDERED: Insulin LISPRO* 1 UNITS UNIT SUBCUT STA (12:02)
--- NOTE | 2018-06-21 15:42 | ECHO ---
Patient: EMMANUEL KENNEDY [facility] Rec#: [id number] : 1940 Date: 06/21/2018 Age: 77y Height: 163 cm / 64.2 in Weight: 112.2 kg / 247.3 lbs Sex: F BSA: 2.15 Room#: [facility] Admit Date#: 06/19/2018 Type: Inpatient Referring: Jemal Jacobs Reading: Randal Hernandez MD T Rail Turner: Haleigh Posadas LIZ CC: January Lopez MD Transthoracic Echocardiogram Indication: CHF BP: 106/49 HR: 70 Rhythm: Paced Findings History: HTN,a-fib,CKD stage IV,DM,HLD,SUKH,COPD,GERD. Technical Comments: The study is technically limited due to patient body habitus. Definity used to enhance images. The study is technically limited due to the patient's history of COPD. Completed at 1018. Left Ventricle: The left ventricular chamber size is normal. There is global hypokinesis of the left ventricle with minor regional variation. There is mild to moderately decreased left ventricular systolic function. The estimated ejection fraction is 40-45%. There is abnormal ventricular septal wall motion consistent with right ventricular pacemaker. The assessment of diastolic function is non-diagnostic. Left Atrium: The left atrium is mildly dilated. Right Ventricle: The right ventricle is mildly dilated. The right ventricular global systolic function is mildly reduced. The septum has abnormal paradoxical motion consistent with RV pacemaker. A pacemaker wire is visualized in the right ventricle. Right Atrium: The right atrium is moderate to severely dilated. A pacemaker wire is visualized in the right atrium. There is evidence of an atrial septal aneurysm. Aortic Valve: The aortic valve structure is not well visualized. There is no evidence of aortic stenosis. Mitral Valve: The mitral valve leaflets are mildly thickened. There is moderate mitral regurgitation. There is no evidence of mitral stenosis. Tricuspid Valve: The tricuspid valve leaflets are normal. There is severe tricuspid regurgitation. The tricuspid regurgitant jet is extending to dome (back wall of RA). There is evidence of moderate pulmonary hypertension. There is no tricuspid stenosis. Pulmonic Valve: The pulmonic valve appears normal. There is mild pulmonic regurgitation. There is no pulmonic stenosis. Pericardium: The pericardium is not well visualized. There is no significant pericardial effusion. Aorta: There is mild dilatation of the ascending aorta. There is no dilatation of the aortic arch. There is no dilation of the aortic root. Pulmonary Artery: The main pulmonary artery appears normal. Venous: The venous system is not well visualized. Contrast: Definity was used to optimize study. A total of 5 ml used. Intravenous contrast was used to enhance endocardial border definition. Conclusions There is global hypokinesis of the left ventricle with minor regional variation. There is mild to moderately decreased left ventricular systolic function. The estimated ejection fraction is 40-45%. There is abnormal ventricular septal wall motion consistent with right ventricular pacemaker. The septum has abnormal paradoxical motion consistent with RV pacemaker. There is evidence of an atrial septal aneurysm. There is no evidence of aortic stenosis. The aortic valve structure is not well visualized. There is moderate mitral regurgitation. There is severe tricuspid regurgitation. There is evidence of moderate pulmonary hypertension. There is no significant pericardial effusion. Compared to study of 11/23/15, the LV function is slightly worse. The degree of TR is much worse Measurements Name Value Normal Range RVIDd (AP) 2D 5 cm (0.9 - 2.6) RAd ISD 4CH 5.9 cm (3.4 - 4.9) RA (A4C)W 5.7 cm (2.9 - 4.6) IVSd (2D) 1.3 cm (0.6 - 1) LVPWd (2D) 1.1 cm (0.6 - 1) LVIDd (2D) 5.1 cm (3.6 - 5.4) LVIDs (2D) 4.8 cm - LV FS (2D) 6 % (25 - 45) Aortic Annulus 2 cm (1.4 - 2.6) Ao root diameter (2D) 3.5 cm (2.1 - 3.5) Ascending Ao 3.5 cm (2.1 - 3.4) Aortic arch 2.6 cm (1.8 - 3.4) Descending Ao 0.5 cm - LA dimension (AP) 2D 4.4 cm (2.3 - 3.8) LAd ISD 4CH 6.3 cm (2.9 - 5.3) LA ISD 4CH W 4 cm (2.5 - 4.5) Name Value Normal Range LA ESV SP 4CH (A/L) 32 ml - LA ESV SP 2CH (A/L) 15 ml - LA ESV BP (A/L) index 23 ml/m2 - Name Value Normal Range MV E-wave Vmax 0.8 m/sec - MV deceleration time 239 msec - MV A-wave Vmax 0.8 m/sec - MV E:A ratio 1.4 ratio - LV septal e' Vmax 0.06 m/sec - LV lateral e' Vmax 0.06 m/sec - LV E:e' septal ratio 13.33 ratio - LV E:e' lateral ratio 13.33 ratio - Name Value Normal Range AV Vmax 1.3 m/sec - AV VTI 29.1 cm - AV peak gradient 7 mmHg - AV mean gradient 3 mmHg - LVOT Vmax 0.9 m/sec - LVOT VTI 18.9 cm - LVOT peak gradient 3 mmHg - LVOT mean gradient 2 mmHg - Name Value Normal Range MR Vmax 3.1 m/sec - MR VTI 93.3 cm - Name Value Normal Range TR Vmax 3.6 m/sec - TR peak gradient 50 mmHg - RAP 8 mmHg - RVSP 58 mmHg - Name Value Normal Range PV Vmax 0.8 m/sec - PV peak gradient 2 mmHg -
--- NOTE | 2018-06-22 09:39 | DS ---
CC: Dr. Eng; Dr. January Lopez * DISCHARGE SUMMARY: DATE OF ADMISSION: DATE OF DISCHARGE: 06/21/18 DISCHARGE DIAGNOSES: 1. Congestive heart failure exacerbation, improved. 2. Chronic obstructive pulmonary disease exacerbation, improved. 3. Cough with hemoptysis, likely secondary to above. The hemoptysis resolved. 4. Atrial fibrillation. 5. Gastroesophageal reflux disease. DISCHARGE MEDICATIONS: 1. Tylenol 650 mg p.o. q. 6 p.r.n. 2. Albuterol sulfate 18 g HFA 2 puffs inhalation b.i.d. 3. Allopurinol 100 mg per G-tube daily. 4. Atorvastatin 20 mg p.o. daily. 5. Benzonatate capsule 100 mg p.o. t.i.d. p.r.n., dispensed 30 with 0 refills. 6. Cholecalciferol 1000 units p.o. b.i.d. 7. Dicyclomine 10 mg p.o. four times a day 8. Guaifenesin 10 mL p.o. t.i.d. 9. Insulin glargine 85 units subcu q. p.m., 100 units subcu q.a.m. 10. Insulin lispro 15 units subcu t.i.d. with meals. 11. Linagliptin 5 mg tab p.o. daily. 12. Metoprolol succinate 100 mg p.o. b.i.d. 13. Dulera 2 puffs inhalation b.i.d. 14. Montelukast 10 mg p.o. daily. 15. [place] fatty acid/fish oil one cap p.o. b.i.d. 16. Omeprazole cap 40 mg p.o. b.i.d. 17. Percocet 5/325 one tab p.o. q. 4. p.r.n. 18. Polyethylene glycol 17 g p.o. daily. 19. Prednisone 10 mg p.o. daily. 20. Pregabalin 150 mg p.o. q.h.s. 21. Pregabalin 100 mg p.o. q. a.m. 22. Ropinirole 0.5 mg p.o. q.h.s. 23. Spironolactone 50 mg p.o. q.a.m. 24. Torsemide 40 mg p.o. daily. 25. Warfarin 2.5 mg p.o. as well as 5 mg p.o. in alternating dosages as part of her home meds. HISTORY OF PRESENT ILLNESS/HOSPITAL COURSE: The patient is a 77-year-old - [place] lady with history of hypertension; atrial fibrillation, on Coumadin; with history of CKD stage 4, who was admitted for complaint of chest pain, cough, and shortness of breath and was found to have acute respiratory failure, most likely due to CHF exacerbation with mild COPD exacerbation. The patient had been placed on Solu-Medrol as well as Lasix diuretic. The patient mentions that she does not count her sodium in her diet and hence likely due to dietary noncompliance. The patient had been diuresed and had subsequently improved and she was rapidly tapered off of her prednisone steroids given her uncontrolled diabetes while she is on high- dose Solu-Medrol. She had been advised to follow up with her PCP within 3 days post DC and she was advised to read labels of her food to make sure she is staying within range of 1 to 1.5 g of sodium intake per day. She was advised that if her symptoms resume and/or develop new ones or feel unwell for any reasons, to call her PCP and if her PCP cannot entertain her due to scheduling issues alone, to call [facility] if her issue is not emergent. She was advised to call my office regarding any questions, concerns, or further clarifications regarding her discharge plans and/or prescriptions and to take her medications as prescribed. PHYSICAL EXAMINATION: Reveals the most recent vital signs of records with blood pressure 137/75, 97.6 degrees Fahrenheit, 70 beats per minute heart rate, 16 per minute of respiratory rate, saturating at 99% on room air. General Appearance: The patient is awake, alert, and oriented x3. Not in acute distress. HEENT: Normocephalic, atraumatic. PERRLA. Extraocular muscles intact. Negative for icterus. Moist oral mucosa. Negative throat erythema. Neck: Soft and supple with no cervical lymphadenopathy. No JVD. Heart: S1, S2 within normal limits. Regular rate and rhythm. No murmurs, rubs or gallops. Chest: Clear to auscultation bilaterally. Good air entry. No wheezes, rales , or rhonchi. Abdomen: Soft, nondistended, nontender. Normoactive bowel sounds x4 quadrants. Psychiatric: No active psychosis, depression, suicidal nor homicidal ideation. Skin: Warm to touch. Extremities: With 1+ bilateral lower extremity edema. TIME SPENT: Total time spent evaluating the patient, reviewing the pertinent data and appropriate documentation is 40 minutes. [id number] #: [id number] MTDD
== END 2018-06-21 15:00 | disposition home health service (06) | DRG 189 ==
LOC: ED 12:46 → MEDTELE 18:03
PROVIDERS: ADMIT Student in an Organized Health Care Education/Training Program; ATTEND Student in an Organized Health Care Education/Training Program
DX: J96.01 Acute respiratory failure with hypoxia (principal); I13.0 Hypertensive heart and chronic kidney disease with heart failure and stage 1 through stage 4 chronic kidney disease, or unspecified chronic kidney disease; N18.4 Chronic kidney disease, stage 4 (severe); R04.2 Hemoptysis; I47.2 Ventricular tachycardia; I50.9 Heart failure, unspecified; Z68.41 Body mass index [BMI] 40.0-44.9, adult; J44.1 Chronic obstructive pulmonary disease with (acute) exacerbation; Z99.81 Dependence on supplemental oxygen; E11.22 Type 2 diabetes mellitus with diabetic chronic kidney disease; I48.91 Unspecified atrial fibrillation; K21.9 Gastro-esophageal reflux disease without esophagitis; E66.01 Morbid (severe) obesity due to excess calories; E78.5 Hyperlipidemia, unspecified; G47.33 Obstructive sleep apnea (adult) (pediatric); E87.6 Hypokalemia; M10.9 Gout, unspecified; I25.10 Atherosclerotic heart disease of native coronary artery without angina pectoris; F41.9 Anxiety disorder, unspecified; Z95.810 Presence of automatic (implantable) cardiac defibrillator; Z95.5 Presence of coronary angioplasty implant and graft; Z79.01 Long term (current) use of anticoagulants; Z79.4 Long term (current) use of insulin; Z79.899 Other long term (current) drug therapy; Z88.8 Allergy status to other drugs, medicaments and biological substances; Z91.040 Latex allergy status; Z91.013 Allergy to seafood; Z82.3 Family history of stroke; Z82.49 Family history of ischemic heart disease and other diseases of the circulatory system
CPT/HCPCS: 36415; 71046; 80048; 80053; 81003; 82550; 82803; 82947; 83605; 83735; 83880; 84100; 84145; 84484; 85025; 85379; 85610; 86140; 87040; 87070; 87205; 87899; 93005; 93306; 94640; 99284; A9270-GY; C8929; G8978-GP-CI; G8979-GP-CI; J0456; J1644; J1940; J2920

== ENCOUNTER 2019-01-11 16:31 | Emergency (ER) | payer MEDICARE ==
--- NOTE | 2019-01-11 16:46 | ED ---
Abdominal Pain/Female - HPI Summary HPI Summary: A 78 y/o F presents to ED with c/o worsening diffuse abd pain, worse on L, ongoing for a few weeks, initial onset at end of November. Associated sx: back pain , nausea. Denies urinary sx, bowel changes. She has not had this type of pain previously. Past abd surgery includes appy in 1987, hysterectomy. PMHx: CHF, pacemaker, CRF, COPD. Pt is on oxygen. Non-smoker. - History of Current Complaint Chief Complaint: EDAbdPain Stated Complaint: ABD AND BACK PAIN PER PT Time Seen by Provider: 01/11/19 16:42 Hx Obtained From: Patient, Family/Speech Correction Consultant Onset/Duration: Gradual Onset, Lasting Weeks, Still Present Timing: Constant Severity Initially: Moderate Severity Currently: Severe Pain Intensity: 9 Pain Scale Used: 0-10 Numeric Location: Diffuse - worst on L Associated Signs and Symptoms: Positive: Back Pain, Nausea. Negative: Urinary Symptoms, Other: - neg: bowel changes Allergies/Adverse Reactions: Allergies Allergy/AdvReac Type Severity Reaction Status Date / Time latex Allergy Swelling Verified 01/11/19 16:39 shellfish derived Allergy Swelling Verified 01/11/19 16:39 Of Face,Lips,& Throat cephalexin [From Keflex] AdvReac Mild Facial Verified 01/11/19 16:39 Redness/Flushing dofetilide [From Tikosyn] AdvReac Palpitation Verified 01/11/19 16:39 s enoxaparin [From Lovenox] AdvReac "blood too Verified 01/11/19 16:39 thin" Home Medications: Home Medications Albuterol HFA INHALER* [Ventolin HFA Inhaler*] 2 puff INH Q4H PRN 01/11/19 [ History Confirmed 01/11/19] Bisacodyl EC TAB* [Dulcolax EC TAB*] 5 mg PO BID 01/11/19 [History Confirmed ] Cyanocobalamin TAB* [Vitamin B12 TAB*] 500 mcg PO QAM 01/11/19 [History Confirmed 01/11/19] Fluticasone NASAL SPRAY 50MCG* [Flonase NASAL SPRAY 50MCG*] 2 spray BOTH NARES DAILY 01/11/19 [History Confirmed 01/11/19] Fluticasone/Umeclidin/Vilanter [Trelegy Ellipta 100-62.5-25] 1 puff INH DAILY [History Confirmed 01/11/19] Insulin Glargine,Hum.rec.anlog [Lantus Solostar] 85 unit SUBCUT QPM 01/11/19 [ History Confirmed 01/11/19] Insulin Glargine,Hum.rec.anlog [Lantus Solostar] 110 units SUBCUT QAM 01/11/19 [ History Confirmed 01/11/19] Linagliptin (NF) [Tradjenta (NF)] 5 mg PO DAILY 01/11/19 [History Confirmed ] Olopatadine 0.1% OPHTH (NF) [Patanol 0.1% OPHTH (NF)] 2 drop BOTH EYES DAILY [History Confirmed 01/11/19] [place]-3 Fatty Acids (Nf) [Fish Oil (NF)] 1,000 mg PO BID 01/11/19 [History Confirmed 01/11/19] Polyethylene Glycol 3350* [Miralax*] 17 gm PO DAILY 01/11/19 [History Confirmed 01/11/19] Potassium Chlor TAB* [Klor Con ER TAB*] 20 meq PO BID 01/11/19 [History Confirmed 01/11/19] Pravastatin (NF) [Pravachol (NF)] 80 mg PO DAILY 01/11/19 [History Confirmed ] Pregabalin CAP(*) [Lyrica CAP(*)] 25 mg PO BID PRN MDD 50mg 01/11/19 [History Confirmed 01/11/19] Torsemide TAB* [Demadex*] 40 mg PO EVERY OTHER DAY 01/11/19 [History Confirmed 01/11/19] Torsemide TAB* [Demadex*] 60 mg PO EVERY OTHER DAY 01/11/19 [History Confirmed 01/11/19] guaiFENesin ER TAB [Mucinex*] 600 mg PO BID PRN 01/11/19 [History Confirmed ] PMH/Surg Hx/FS Hx/Imm Hx Endocrine/Hematology History: Reports: Hx Anticoagulant Therapy, Hx Blood Transfusions, Hx Diabetes, Hx Anemia, Other Endocrine/Hematological Disorders Cardiovascular History: Reports: Hx Angina, Hx Auto Implanted Cardiovert Defib, Hx Cardiomegaly, Hx Congestive Heart Failure, Hx Coronary Artery Disease, Hx Hypercholesterolemia, Hx Hypertension, Hx Myocardial Infarction, Hx Pacemaker/ ICD, Hx Syncope Denies: Hx Valvular Heart Disease Respiratory History: Reports: Hx Asthma, Hx Chronic Obstructive Pulmonary Disease (COPD) - pt reports 2L O2 via [place] prn at home, Hx Pleural Effusion, Hx Pulmonary Edema, Hx Sleep Apnea, Other Respiratory Problems/Disorders - bronchitis, 2nd hand smoke exposure, pulmonary fibrosis GI History: Reports: Hx Diverticulosis, Hx Gall Bladder Disease, Hx Gastroesophageal Reflux Disease, Hx Irritable Bowel, Hx Obstructive Bowel, Other GI Disorders - Enlarged liver, polyps History: Reports: Hx Chronic Renal Failure, Hx Kidney Stones Denies: Hx Renal Disease Musculoskeletal History: Reports: Hx Arthritis, Hx Back Problems, Hx Gout Denies: Hx Osteoporosis Sensory History: Reports: Hx Cataracts, Hx Contacts or Glasses, Hx Vision Problem - blurry, Other Sensory Impairments - Neuropathy Denies: Hx Deafness, Hx Hearing Aid Opthamlomology History: Reports: Hx Cataracts, Hx Contacts or Glasses, Hx Vision Problem - blurry, Other Sensory Impairments - Neuropathy Neurological History: Reports: Hx Headaches, Hx Peripheral Neuropathy Denies: Hx Seizures, Hx Transient Ischemic Attacks (TIA) Psychiatric History: Reports: Hx Anxiety, Hx Depression - Surgical History Surgery Procedure, Year, and Place: Cholecystectomy 29 years ago. Appy 29 years ago. HYSTERECTOMY 29 years ago. Pacemaker placement 2009 Hx Anesthesia Reactions: No - Immunization History Date of Tetanus Vaccine: Unk Date of Influenza Vaccine: Fall 2014 Infectious Disease History: No Infectious Disease History: Denies: Hx Hepatitis, Hx of Known/Suspected MRSA, Hx Shingles, Hx Tuberculosis, Traveled Outside the [place] in Last 30 Days - Family History Known Family History: Positive: Cardiac Disease - Brother with [place] at age 34 - Social History Alcohol Use: Rare Hx Substance Use: No Substance Use Type: Reports: None Substance Use Comment - Amount & Last Used: tramadol; oxycodone Hx Tobacco Use: No Smoking Status (MU): Never Smoked Tobacco Have You Smoked in the Last Year: No Review of Systems Negative: Fever Positive: Abdominal Pain, Nausea. Negative: Other - neg: bowel changes Negative: dysuria, hematuria Musculoskeletal: Other - pos: back pain All Other Systems Reviewed And Are Negative: Yes Physical Exam - Summary Physical Exam Summary: Appearance: Well-appearing, Obese, lying in bed comfortably Skin: Warm, dry, no obvious rash Eyes: sclera anicteric, no conjunctival pallor ENT: mucous membranes moist, pharynx appears normal Neck: Supple, nontender Respiratory: Clear to auscultation, no signs of respiratory distress Cardiovascular: Normal S1, S2. No murmurs. Normal distal pulses in tibial and radial bilaterally. Abdomen: Soft, normal active bowel sounds present, limited by severe obesity, there is L-sided tenderness mostly in LUQ with some radiation to flank with no overt peritoneal signs Musculoskeletal: Normal, Strength/ROM Intact Neurological: A&Ox3, awake and alert, mentation is normal, speech is fluent and appropriate Psychiatric: affect is normal, does not appear anxious or depressed Triage Information Reviewed: Yes Vital Signs On Initial Exam: Initial Vitals Temp Pulse Resp BP Pulse Ox 99 F 71 20 158/88 94 01/11/19 16:33 01/11/19 16:33 01/11/19 16:33 01/11/19 16:33 01/11/19 16:33 Vital Signs Reviewed: Yes Diagnostics - Vital Signs Vital Signs Temp Pulse Resp BP Pulse Ox 01/11/19 16:33 99 F 71 20 158/88 94 - Laboratory Result Diagrams: 01/11/19 17:19 01/11/19 17:19 Lab Statement: Any lab studies that have been ordered have been reviewed, and results considered in the medical decision making process. - CT A/P CT CT Interpretation Completed By: Radiologist Summary of CT Findings: IMPRESSION: No evidence of diverticulitis. Possible mild focal ileus in the upper abdomen, a nonspecific finding. No other acute process. ED provider has reviewed this report. Re-Evaluation - Re-Evaluation 1 Re-Evaluation Time: 20:31 Comment: Discussing results with pt and plan to DC. Abdominal Pain Fem Course/Dx - Course Course Of Treatment: Pt is a 78 y/o F presenting with abd pain, worse on L, ongoing for a few weeks. Associated sx: back pain, nausea. Denies urinary sx, bowel changes. Past abd surgery includes appy in 1987, hysterectomy. PMHx: CHF, pacemaker, CRF, COPD. Lab work shows Creatinine: 1.77, CRP: 17.58. UA is unremarkable. A/P CT shows "No evidence of diverticulitis. Possible mild focal ileus in the upper abdomen, a nonspecific finding. No other acute process." Clinical suspicion of diverticulitis is not borne out by the CT scan. At this point the patient can be safely discharged. - Diagnoses Provider Diagnoses: Left sided abdominal pain of unknown cause Discharge - Sign-Out/Discharge Documenting (check all that apply): Patient Departure - DC Patient Received Moderate/Deep Sedation with Procedure: No - Discharge Plan Condition: Good Disposition: HOME Patient Education Materials: Acute Abdominal Pain (ED) Referrals: January Lopez MD [Primary Care Provider] - 1 Week Additional Instructions: Your CT scan did not show any sign of diverticulitis or other significant infection. The rest of your tests were also unremarkable. The cause of your pain is unclear, so I would recommend checking with your PCP or umbrella frame maker for further evaluation. - Billing Disposition and Condition Condition: GOOD Disposition: Home - Attestation Statements Document Initiated by Brittni: Yes Documenting Scribe: Patrick Aguilar Provider For Whom Scribe is Documenting (Include Credential): Dr. Kenneth Mccall MD Scribe Attestation: Patrick Norwood scribed for Dr. Kenneth Mccall MD on 01/12/19 at 1052. Scribe Documentation Reviewed: Yes Provider Attestation: The documentation as recorded by the Patrick irvin accurately reflects the service I personally performed and the decisions made by me, Dr. Kenneth Mccall MD Status of Scribe Document: Viewed
[2019-01-11] MEDS ORDERED: Morphine 10 MG/ML VIAL (1 ml) IV ONE (16:49)
[2019-01-11] MEDS ORDERED: NS 0.9% 1000 ML** 2,000 ML IV ONE (16:49)
[2019-01-11 17:10] LABS: Urine Appearance Clear; Urine Bilirubin Negative (Negative); Urine Blood Negative (Negative); Urine Color Yellow; Urine Glucose Negative (Negative); Urine Ketones Negative (Negative); Urine Nitrite Negative (Negative); Urine Protein Negative (Negative); Urine Specific Gravity 1.009 (1.010-1.030); Urine Urobilinogen Negative (Negative)
[2019-01-11 17:32] LABS: Hematocrit 35 % (33-41); Hemoglobin 11.1 g/dL (12.0-16.0); Mean Corpuscular HGB Conc 32 g/dL (31-36); Mean Corpuscular Hemoglobin 27 pg (27-31); Mean Corpuscular Volume 85 fL (80-97); Mean Platelet Volume 8.6 fL (7.4-10.4); Platelet Count 181 10^3/uL (150-450); Red Cell Distribution Width 22 % (10.5-15)
[2019-01-11 17:43] LABS: Albumin 4.1 g/dL (3.2-5.2); Albumin/Globulin Ratio 1.3 (1-3); BUN/Creatinine Ratio 12.4 (8-20); C Reactive Protein 17.58 mg/L (<8.01); Calcium 9.1 mg/dL (8.6-10.3); EGFR African American 33.7 (>60); EGFR Non-African American 27.9 (>60); Globulin 3.1 g/dL (2-4); Total Bilirubin 0.4 mg/dL (0.2-1.0); Total Protein 7.2 g/dL (6.4-8.9)
[2019-01-11 18:14] LABS: ABS Basophils 0 10^3/ul (0-0.2); ABS Eosinophils 0.2 10^3/ul (0-0.6); ABS Lymphocytes 2.2 10^3/ul (1.0-4.8); ABS Monocytes 1.6 10^3/ul (0-0.8); ABS Nucleated RBC 0.1 10^3/ul; Eosinophil % 1.8 %; Lymphocyte % 24.7 %; Nucleated Red Blood Cells % 0.6
[2019-01-11] MEDS ORDERED: Iodixanol* (CONTRAST) 320 MG/ML 100 ML SDV IV ONE (18:31)
[2019-01-11 20:54] VITALS: BP 142/73
== END 2019-01-11 20:45 | disposition home or self-care (01) ==
LOC: ED 16:31
DX: R10.9 Unspecified abdominal pain (principal); M54.9 Dorsalgia, unspecified; R11.0 Nausea; Z95.0 Presence of cardiac pacemaker; I50.9 Heart failure, unspecified; J44.9 Chronic obstructive pulmonary disease, unspecified; N18.9 Chronic kidney disease, unspecified; Z79.01 Long term (current) use of anticoagulants; K21.9 Gastro-esophageal reflux disease without esophagitis
CPT/HCPCS: 36415; 74177; 80053; 81003; 83605; 83690; 85025; 86140; 99283; J2270; Q9967

== ENCOUNTER 2019-01-20 09:58 | Emergency (ER) | payer MEDICARE ==
--- NOTE | 2019-01-20 10:19 | ED ---
Abdominal Pain/Female - HPI Summary HPI Summary: 78 year old F presenting to [facility] accompanied by daughter with a chief complaint of left abdominal pain and epigastric abdominal pain since this morning. The patient rates the pain 8/10 in severity. Symptoms aggravated by nothing. Symptoms alleviated by nothing. Daughter reports dark stool. Daughter denies vomiting, bloody stools. Patient denies vaginal bleeding, vaginal discharge. Patient has treated pain with Tramadol VIDEOGRAPHER with relief. Patient was seen in ED on 01/11/19 for the same pain. Patient received CT Abd/Pel which was negative. - History of Current Complaint Chief Complaint: EDAbdPain Stated Complaint: LEFT SIDE, STOMACH PAIN PER PT Time Seen by Provider: 01/20/19 10:10 Hx Obtained From: Patient, Family/Field Administrative Assistant - daughter Onset/Duration: Lasting Hours, Still Present Timing: Constant Severity Currently: Severe Pain Intensity: 8 Pain Scale Used: 0-10 Numeric Location: Discrete At: LUQ, Discrete At: LLQ, Epigastric Aggravating Factor(s): Nothing Alleviating Factor(s): Nothing Associated Signs and Symptoms: Positive: Negative - vomiting, bloody stools, vaginal bleeding, vaginal discharge, Other: - dark stool Allergies/Adverse Reactions: Allergies Allergy/AdvReac Type Severity Reaction Status Date / Time latex Allergy Swelling Verified 01/20/19 10:05 shellfish derived Allergy Swelling Verified 01/20/19 10:05 Of Face,Lips,& Throat cephalexin [From Keflex] AdvReac Mild Facial Verified 01/20/19 10:05 Redness/Flushing dofetilide [From Tikosyn] AdvReac Palpitation Verified 01/20/19 10:05 s enoxaparin [From Lovenox] AdvReac "blood too Verified 01/20/19 10:05 thin" Home Medications: Home Medications Pregabalin CAP(*) [Lyrica CAP(*)] 100 mg PO QAM 01/20/19 [History Confirmed ] Pregabalin CAP(*) [Lyrica CAP(*)] 150 mg PO QPM 01/20/19 [History Confirmed ] traMADol TAB* [Ultram*] 50 mg PO Q8HR PRN 01/20/19 [History Confirmed 01/20/19] PMH/Surg Hx/FS Hx/Imm Hx Previously Healthy: No Endocrine/Hematology History: Reports: Hx Anticoagulant Therapy, Hx Blood Transfusions, Hx Diabetes, Hx Anemia, Other Endocrine/Hematological Disorders Cardiovascular History: Reports: Hx Angina, Hx Auto Implanted Cardiovert Defib, Hx Cardiomegaly, Hx Congestive Heart Failure, Hx Coronary Artery Disease, Hx Hypercholesterolemia, Hx Hypertension, Hx Myocardial Infarction, Hx Pacemaker/ ICD, Hx Syncope Denies: Hx Valvular Heart Disease Respiratory History: Reports: Hx Asthma, Hx Chronic Obstructive Pulmonary Disease (COPD) - pt reports 2L O2 via [place] prn at home, Hx Pleural Effusion, Hx Pulmonary Edema, Hx Sleep Apnea, Other Respiratory Problems/Disorders - bronchitis, 2nd hand smoke exposure, pulmonary fibrosis GI History: Reports: Hx Diverticulosis, Hx Gall Bladder Disease, Hx Gastroesophageal Reflux Disease, Hx Irritable Bowel, Hx Obstructive Bowel, Other GI Disorders - Enlarged liver, polyps History: Reports: Hx Chronic Renal Failure, Hx Kidney Stones Denies: Hx Renal Disease Musculoskeletal History: Reports: Hx Arthritis, Hx Back Problems, Hx Gout Denies: Hx Osteoporosis Sensory History: Reports: Hx Cataracts, Hx Contacts or Glasses, Hx Vision Problem - blurry, Other Sensory Impairments - Neuropathy Denies: Hx Deafness, Hx Hearing Aid Opthamlomology History: Reports: Hx Cataracts, Hx Contacts or Glasses, Hx Vision Problem - blurry, Other Sensory Impairments - Neuropathy Neurological History: Reports: Hx Headaches, Hx Peripheral Neuropathy Denies: Hx Seizures, Hx Transient Ischemic Attacks (TIA) Psychiatric History: Reports: Hx Anxiety, Hx Depression - Surgical History Surgery Procedure, Year, and Place: Cholecystectomy 29 years ago. Appy 29 years ago. HYSTERECTOMY 29 years ago. Pacemaker placement 2009 Hx Anesthesia Reactions: No - Immunization History Date of Tetanus Vaccine: Unk Date of Influenza Vaccine: Fall 2014 Infectious Disease History: No Infectious Disease History: Denies: Hx Hepatitis, Hx of Known/Suspected MRSA, Hx Shingles, Hx Tuberculosis, Traveled Outside the [place] in Last 30 Days - Family History Known Family History: Positive: Cardiac Disease - Brother with [place] at age 34 - Social History Alcohol Use: Rare Hx Substance Use: Yes Substance Use Comment - Amount & Last Used: tramadol; oxycodone Hx Tobacco Use: No Smoking Status (MU): Never Smoked Tobacco Have You Smoked in the Last Year: No Review of Systems Gastrointestinal: Negative - bloody stools Positive: Abdominal Pain - left, epigastric, Other - dark stool. Negative: Vomiting Genitourinary: Negative - vaginal bleeding Negative: discharge All Other Systems Reviewed And Are Negative: Yes Physical Exam - Summary Physical Exam Summary: Appearance: Well appearing, no pain distress Skin: warm, dry, reflects adequate perfusion Head/face: normal Eyes: EOMI, KATHI ENT: normal Neck: supple, non-tender Respiratory: CTA, breath sounds present Cardiovascular: RRR, pulses symmetrical Abdomen: Tenderness in the left upper and left lower quadrants Musculoskeletal: normal, strength/ROM intact Neuro: normal, sensory motor intact, A&Ox3 Rectal exam chaperoned by nurse Patti: Navid duvall, sent to lab for testing Triage Information Reviewed: Yes Vital Signs On Initial Exam: Initial Vitals Temp Pulse Resp BP Pulse Ox 97.0 F 70 20 129/73 94 01/20/19 10:02 01/20/19 10:02 01/20/19 10:02 01/20/19 10:02 01/20/19 10:02 Vital Signs Reviewed: Yes Diagnostics - Vital Signs Vital Signs Temp Pulse Resp BP Pulse Ox 01/20/19 10:02 97.0 F 70 20 129/73 94 - Laboratory Result Diagrams: 01/20/19 10:29 01/20/19 10:29 Lab Statement: Any lab studies that have been ordered have been reviewed, and results considered in the medical decision making process. - CT Abd/Pel CT Interpretation Completed By: Radiologist Summary of CT Findings: Diverticulosis without definite evidence of diverticulitis of the sigmoid colon. Normal appendix. No evidence of obstructive uropathy is noted. Nonspecific subcutaneous edema is noted. ED physician has reviewed this report. Re-Evaluation - Re-Evaluation First Eval Re-Evaluation Time: 12:46 Change: Improved Comment: Patient was given results of her CT Abd/Pel scan. Discussed disposition plan. She is agreeable to discharge. Abdominal Pain Fem Course/Dx - Course Course Of Treatment: 78 year old F presenting to [facility] complains of left abdominal pain and epigastric abdominal pain since this morning. Patient was seen in ED on 01/11/19 for the same pain. Patient received CT Abd/Pel which was negative. Bloodwork/UA obtained. CT Abd/Pel showed Diverticulosis without definite evidence of diverticulitis of the sigmoid colon. Normal appendix. No evidence of obstructive uropathy is noted. Nonspecific subcutaneous edema is noted. In ED course, patient was given Zofran, morphine, and IV fluids. Patient feels better and would like to go home. atient will be discharged home with prescription for Flexeril and Ultram and follow up from primary care provider in 3 days. Patient was instructed to return to ED for new or worsening symptoms. Patient understands and is agreeable to discharge plan. - Diagnoses Differential Diagnosis: Positive: Constipation, Diverticulitis, Pancreatitis, Renal Colic Provider Diagnoses: Nonspecific abdominal pain Discharge - Sign-Out/Discharge Documenting (check all that apply): Patient Departure - Discharge Patient Received Moderate/Deep Sedation with Procedure: No - Discharge Plan Condition: Stable Disposition: HOME Prescriptions: Cyclobenzaprine TAB* [Flexeril 10 MG TAB*] 10 mg PO BID PRN #14 tab MDD 2 PRN Reason: Pain Tramadol HCl [Ultram] 50 mg PO TID #15 tablet MDD 3 Patient Education Materials: Abdominal Pain (ED) Referrals: January Lopez MD [Primary Care Provider] - 3 Days Additional Instructions: Follow up with your primary care provider in 3 days. RETURN TO EMERGENCY DEPARTMENT FOR NEW OR WORSENING SYMPTOMS. - Billing Disposition and Condition Condition: STABLE Disposition: Home - Attestation Statements Document Initiated by Scribe: Yes Documenting Scribe: Stella Penaloza Provider For Whom Brittni is Documenting (Include Credential): Jimmie Martinez MD Scribe Attestation: Stella Norwood, scribed for Jimmie Martinez MD on 01/20/19 at 1259. Scribe Documentation Reviewed: Yes Provider Attestation: The documentation as recorded by the Stella irvin accurately reflects the service I personally performed and the decisions made by Jimmie fitzgerald MD Status of Scribe Document: Viewed
[2019-01-20] MEDS ORDERED: NS 0.9% 1000 ML** 1,000 ML IV SCH (10:30)
[2019-01-20 10:34] LABS: Hematocrit 33 % (33-41); Hemoglobin 10.6 g/dL (12.0-16.0); Mean Corpuscular HGB Conc 32 g/dL (31-36); Mean Corpuscular Hemoglobin 27 pg (27-31); Mean Corpuscular Volume 85 fL (80-97); Mean Platelet Volume 8.3 fL (7.4-10.4); Platelet Count 202 10^3/uL (150-450); Red Blood Count 3.94 10^6 /uL (3.70-4.87); Red Cell Distribution Width 22 % (10.5-15); White Blood Count 9.7 10^3/uL (3.5-10.8)
[2019-01-20 10:56] LABS: Activated Partial Thrombo Time 37.4 seconds (26.0-36.3); INR 1.49 (0.82-1.09)
[2019-01-20 11:10] LABS: Albumin/Globulin Ratio 1.4 (1-3); BUN/Creatinine Ratio 11.7 (8-20); C Reactive Protein 9.08 mg/L (<8.01); Calcium 9.2 mg/dL (8.6-10.3); EGFR African American 35.1 (>60); Globulin 2.9 g/dL (2-4); Potassium 4.1 mmol/L (3.5-5.0); Total Bilirubin 0.5 mg/dL (0.2-1.0); Total Protein 6.9 g/dL (6.4-8.9)
[2019-01-20 11:19] LABS: ABS Basophils 0.1 10^3/ul (0-0.2); ABS Eosinophils 0.2 10^3/ul (0-0.6); ABS Lymphocytes 2.3 10^3/ul (1.0-4.8); ABS Monocytes 1.6 10^3/ul (0-0.8); ABS Neutrophils 5.4 10^3/ul (1.5-7.7); ABS Nucleated RBC 0.1 10^3/ul; Lymphocyte % 24.1 %; Nucleated Red Blood Cells % 0.5
[2019-01-20] MEDS ORDERED: Iodixanol* (CONTRAST) 320 MG/ML 100 ML SDV IV ONE (11:32)
[2019-01-20] MEDS ORDERED: Ondansetron INJ* 2 MG/ML VIAL IV ONE (11:36)
[2019-01-20] MEDS ORDERED: Morphine INJ* 2 MG/ML 1 ML SYRINGE (TWO MG - NEW SYRINGE VERSION) IV ONE (11:36)
[2019-01-20 11:55] LABS: Urine Appearance Clear; Urine Color Yellow; Urine Ketones Negative (Negative); Urine Protein Negative (Negative); Urine Urobilinogen Negative (Negative)
[2019-01-20 11:56] LABS: Urine Bilirubin Negative (Negative); Urine Blood Negative (Negative); Urine Glucose Negative (Negative); Urine Nitrite Negative (Negative)
[2019-01-20 13:36] VITALS: BP 122/63
== END 2019-01-20 13:35 | disposition home or self-care (01) ==
LOC: ED 09:58
DX: K57.90 Diverticulosis of intestine, part unspecified, without perforation or abscess without bleeding (principal); R10.9 Unspecified abdominal pain; I13.0 Hypertensive heart and chronic kidney disease with heart failure and stage 1 through stage 4 chronic kidney disease, or unspecified chronic kidney disease; I50.9 Heart failure, unspecified; E11.22 Type 2 diabetes mellitus with diabetic chronic kidney disease; N18.9 Chronic kidney disease, unspecified; I25.10 Atherosclerotic heart disease of native coronary artery without angina pectoris; I25.2 Old myocardial infarction; J44.9 Chronic obstructive pulmonary disease, unspecified; E78.00 Pure hypercholesterolemia, unspecified; D64.9 Anemia, unspecified; G47.30 Sleep apnea, unspecified; Z91.040 Latex allergy status; Z88.3 Allergy status to other anti-infective agents; Z88.8 Allergy status to other drugs, medicaments and biological substances; Z79.01 Long term (current) use of anticoagulants; Z95.810 Presence of automatic (implantable) cardiac defibrillator; F41.9 Anxiety disorder, unspecified; F32.9 Major depressive disorder, single episode, unspecified; Z90.49 Acquired absence of other specified parts of digestive tract
CPT/HCPCS: 36415; 74177; 80053; 81003; 82272; 83605; 83690; 84484; 85025; 85610; 85730; 86140; 96374; 96375; 99283; J2270; J2405; Q9967

== ENCOUNTER 2019-01-30 14:49 | Emergency (ER) | payer MEDICARE ==
--- NOTE | 2019-01-30 17:42 | ED ---
Shortness of Breath - HPI Summary HPI Summary: This patient is a 78 year old female presenting to [facility] with a chief complaint of SOB upon exertion and abdominal pain. She reports the pain is in her left flank and LLQ. She says the pain radiates to her back. She reports nausea. She states she is currently on home oxygen. She rates her pain 10/10 in severity. She states the pain gets worse when she eats. - History of Current Complaint Chief Complaint: EDShortnessOfBreath Time Seen by Provider: 01/30/19 17:34 Hx Obtained From: Patient Current Severity: Mild Dyspnea At: Exertion Alleviating Factors: Oxygen - Allergy/Home Medications Allergies/Adverse Reactions: Allergies Allergy/AdvReac Type Severity Reaction Status Date / Time latex Allergy Swelling Verified 01/30/19 15:03 shellfish derived Allergy Swelling Verified 01/30/19 15:03 Of Face,Lips,& Throat cephalexin [From Keflex] AdvReac Mild Facial Verified 01/30/19 15:03 Redness/Flushing dofetilide [From Tikosyn] AdvReac Palpitation Verified 01/30/19 15:03 s enoxaparin [From Lovenox] AdvReac "blood too Verified 01/30/19 15:03 thin" PMH/Surg Hx/FS Hx/Imm Hx Endocrine/Hematology History: Reports: Hx Anticoagulant Therapy, Hx Blood Transfusions, Hx Diabetes, Hx Anemia, Other Endocrine/Hematological Disorders Cardiovascular History: Reports: Hx Angina, Hx Auto Implanted Cardiovert Defib, Hx Cardiomegaly, Hx Congestive Heart Failure, Hx Coronary Artery Disease, Hx Hypercholesterolemia, Hx Hypertension, Hx Myocardial Infarction, Hx Pacemaker/ ICD, Hx Syncope Denies: Hx Valvular Heart Disease Respiratory History: Reports: Hx Asthma, Hx Chronic Obstructive Pulmonary Disease (COPD) - pt reports 2L O2 via [place] prn at home, Hx Pleural Effusion, Hx Pulmonary Edema, Hx Sleep Apnea, Other Respiratory Problems/Disorders - bronchitis, 2nd hand smoke exposure, pulmonary fibrosis GI History: Reports: Hx Diverticulosis, Hx Gall Bladder Disease, Hx Gastroesophageal Reflux Disease, Hx Irritable Bowel, Hx Obstructive Bowel, Other GI Disorders - Enlarged liver, polyps History: Reports: Hx Chronic Renal Failure, Hx Kidney Stones Denies: Hx Renal Disease Musculoskeletal History: Reports: Hx Arthritis, Hx Back Problems, Hx Gout Denies: Hx Osteoporosis Sensory History: Reports: Hx Cataracts, Hx Contacts or Glasses, Hx Vision Problem - blurry, Other Sensory Impairments - Neuropathy Denies: Hx Deafness, Hx Hearing Aid Opthamlomology History: Reports: Hx Cataracts, Hx Contacts or Glasses, Hx Vision Problem - blurry, Other Sensory Impairments - Neuropathy Neurological History: Reports: Hx Headaches, Hx Peripheral Neuropathy Denies: Hx Seizures, Hx Transient Ischemic Attacks (TIA) Psychiatric History: Reports: Hx Anxiety, Hx Depression - Surgical History Surgery Procedure, Year, and Place: Cholecystectomy 29 years ago. Appy 29 years ago. HYSTERECTOMY 29 years ago. Pacemaker placement 2009 Hx Anesthesia Reactions: No - Immunization History Date of Tetanus Vaccine: Unk Date of Influenza Vaccine: Fall 2014 Infectious Disease History: No Infectious Disease History: Denies: Hx Hepatitis, Hx of Known/Suspected MRSA, Hx Shingles, Hx Tuberculosis, Traveled Outside the [place] in Last 30 Days - Family History Known Family History: Positive: Cardiac Disease - Brother with [place] at age 34 - Social History Alcohol Use: Rare Hx Substance Use: Yes Substance Use Type: Reports: None Substance Use Comment - Amount & Last Used: tramadol; oxycodone Hx Tobacco Use: No Smoking Status (MU): Never Smoked Tobacco Have You Smoked in the Last Year: No Review of Systems Positive: Shortness Of Breath Positive: Abdominal Pain Positive: flank pain All Other Systems Reviewed And Are Negative: Yes Physical Exam - Summary Physical Exam Summary: VITAL SIGNS: Reviewed. GENERAL: Patient is an obese female who is lying comfortable in the stretcher. Patient is not in any acute respiratory distress. HEAD AND FACE: Normocephalic and atraumatic. EYES: PERRLA, EOMI x 2, No injected conjunctiva. EARS: Hearing grossly intact. Ear canals and tympanic membranes are WNL. MOUTH: Oropharynx within normal limits. NECK: Supple, trachea is midline, no adenopathy, no JVD. CHEST: Symmetric, no tenderness at palpation LUNGS: Clear to auscultation bilaterally. No wheezing or crackles. CVS: RRR, S1 and S2 present, no murmurs or gallops appreciated. ABDOMEN: Soft, tender in left flank and LLQ. No signs of distention. Positive bowel sounds. No rebound no guarding, and no masses palpated. No abdominal bruit or pulsations. EXTREMITIES: FROM in all major joints, no edema, no cyanosis or clubbing. NEURO: Alert and oriented x 3. No acute neurological deficits. Speech is normal. SKIN: Dry and warm Triage Information Reviewed: Yes Vital Signs On Initial Exam: Initial Vitals Temp Pulse Resp BP Pulse Ox 98.9 F 79 22 150/68 92 01/30/19 14:55 01/30/19 14:55 01/30/19 14:55 01/30/19 14:55 01/30/19 14:55 Vital Signs Reviewed: Yes Diagnostics - Vital Signs Vital Signs Temp Pulse Resp BP Pulse Ox 01/30/19 17:03 76 137/76 93 01/30/19 16:40 98.7 F 77 20 125/56 90 01/30/19 14:55 98.9 F 79 22 150/68 92 - Laboratory Result Diagrams: 01/30/19 18:07 01/30/19 18:07 Lab Statement: Any lab studies that have been ordered have been reviewed, and results considered in the medical decision making process. - Radiology CXR Radiology Interpretation Completed By: ED Physician Summary of Radiographic Findings: Cardiomegaly, some interstitial congestion. Pending official radiologist report. Abdomen XR Radiology Interpretation Completed By: ED Physician Summary of Radiographic Findings: No acute pathology. Pending official radiologist report. - EKG 1754 Cardiac Rate: NL - 84 BPM Ectopy: None EKG Comparison: No Significant Change - 10/30/18 Summary of EKG Findings: A-V dual-paced rythm with some inhibition. Course/Dx - Course Assessment/Plan: This patient is a 78-year-old female who presents to the emergency department with a chief complaint of having left-sided abdominal pain including the left flank. The patient reports that she has been having this pain for the last couple months. The patient has multiple times his primary care physician and they havent find day tillage of the pain. Patient had an abdominal CT done on 01/20/19 which she shows and diverticulosis without definite evidence of diverticulitis of the sigmoid colon. Normal appendix. No evidence for obstructive uropathy is noted. In the ED course the patient was given IV fluids, Zofran for nausea and morphine for pain. Blood test results without any significant abnormality except for hemoglobin 11.3, creatinine 1.82 , which is her baseline, creatinine of 12.1, BNP 243, ambulates 21 and lipase 19. X-ray of the abdomen shows no acute pathology. Chest x-ray shows no acute pathology. After the patient was given the morphine and Zofran the patients symptoms have improved. At this point I do not think that the patient would benefit of another abdominopelvic CT. The patient is improved amount of blood tests and the images without any significant abnormality therefore since the patient has an appointment with with GI I can send the patient home with follow- up with primary care physician and GI. . I discussed all the findings and test results with the patient. Patient was instructed to return to the emergency room immediately if any of the symptoms return worsens. Plan of care was discussed with the patient and understands and agrees. All questions were answered at patient satisfaction. There were no further complaints or concerns. Lung exam before discharge: CTA B/L. Good air exchange. No wheezing or crackles heard. CVS: S1 and S2 present. No murmurs appreciated. Patient is alert and oriented x 3. Patient is hemodynamically stable. Patient will be discharged home with follow up PCP in the next 2-3 days - Diagnoses Provider Diagnoses: Chronic abdominal pain Discharge - Sign-Out/Discharge Documenting (check all that apply): Patient Departure - Discharge Patient Received Moderate/Deep Sedation with Procedure: No - Discharge Plan Condition: Stable Disposition: HOME Patient Education Materials: Chronic Abdominal Pain (ED) Referrals: January Lopez MD [Primary Care Provider] - Additional Instructions: Return to ED with any new or worsening symptoms. - Billing Disposition and Condition Condition: STABLE Disposition: Home - Attestation Statements Document Initiated by Brittni: Yes Documenting Scribe: Joselito Dumas Provider For Whom Brittni is Documenting (Include Credential): Tato Eng MD Scribe Attestation: Joselito Norwood, scribed for Tato Eng MD on 01/30/19 at 2108. Scribe Documentation Reviewed: Yes Provider Attestation: The documentation as recorded by the Joselito irvin accurately reflects the service I personally performed and the decisions made by me, Tato Eng MD Status of Scribe Document: Viewed
[2019-01-30 18:25] LABS: Hematocrit 36 % (35-47); Hemoglobin 11.3 g/dL (12.0-16.0); Mean Corpuscular HGB Conc 32 g/dL (31-36); Mean Corpuscular Hemoglobin 27 pg (27-31); Mean Corpuscular Volume 85 fL (80-97); Mean Platelet Volume 8.6 fL (7.4-10.4); Platelet Count 168 10^3/uL (150-450); Red Blood Count 4.17 10^6 /uL (3.70-4.87); Red Cell Distribution Width 22 % (10.5-15); White Blood Count 8.6 10^3/uL (3.5-10.8)
[2019-01-30 18:37] LABS: Albumin 4.2 g/dL (3.2-5.2); Albumin/Globulin Ratio 1.2 (1-3); BUN/Creatinine Ratio 12.1 (8-20); C Reactive Protein 12.11 mg/L (<8.01); Calcium 9.5 mg/dL (8.6-10.3); EGFR African American 32.7 (>60); Globulin 3.4 g/dL (2-4); Magnesium 2.7 mg/dL (1.9-2.7); Total Bilirubin 0.5 mg/dL (0.2-1.0); Total Protein 7.6 g/dL (6.4-8.9)
[2019-01-30 18:46] LABS: Polychromasia 1+
[2019-01-30 18:48] LABS: ABS Basophils 0.1 10^3/ul (0-0.2); ABS Eosinophils 0.2 10^3/ul (0-0.6); ABS Lymphocytes 2.1 10^3/ul (1.0-4.8); ABS Monocytes 1.6 10^3/ul (0-0.8); ABS Neutrophils 4.5 10^3/ul (1.5-7.7); ABS Nucleated RBC 0.1 10^3/ul
[2019-01-30 18:59] LABS: Potassium 3.7 mmol/L (3.5-5.0)
[2019-01-30] MEDS ORDERED: NS 0.9% 1000 ML** 1,000 ML IV ONE (19:05)
[2019-01-30] MEDS ORDERED: Morphine 4 MG/ML VIAL (1 ml) 4 MG/ML VIAL IV ONE (19:05)
[2019-01-30] MEDS ORDERED: Ondansetron INJ* 2 MG/ML VIAL IV ONE (19:05)
[2019-01-30 20:40] VITALS: BP 132/70
--- NOTE | 2019-01-31 12:11 | PN ---
Progress Note - Progress Note Date of Service: 01/30/19 Note: Final radiology read on CXR IMPRESSION: FINDINGS SUGGESTIVE OF MILD CONGESTIVE HEART FAILURE, UNCHANGED. R1F No change change in treatment needed.
== END 2019-01-30 20:35 | disposition home or self-care (01) ==
LOC: ED 14:49
DX: R10.9 Unspecified abdominal pain (principal); G89.29 Other chronic pain; R94.31 Abnormal electrocardiogram [ECG] [EKG]; I13.0 Hypertensive heart and chronic kidney disease with heart failure and stage 1 through stage 4 chronic kidney disease, or unspecified chronic kidney disease; E11.22 Type 2 diabetes mellitus with diabetic chronic kidney disease; I50.9 Heart failure, unspecified; I25.10 Atherosclerotic heart disease of native coronary artery without angina pectoris; D64.9 Anemia, unspecified; N18.9 Chronic kidney disease, unspecified; E78.00 Pure hypercholesterolemia, unspecified; I25.2 Old myocardial infarction; J44.9 Chronic obstructive pulmonary disease, unspecified; J84.10 Pulmonary fibrosis, unspecified; M19.90 Unspecified osteoarthritis, unspecified site; K58.9 Irritable bowel syndrome, unspecified; F41.9 Anxiety disorder, unspecified; F32.9 Major depressive disorder, single episode, unspecified; Z95.810 Presence of automatic (implantable) cardiac defibrillator; Z77.22 Contact with and (suspected) exposure to environmental tobacco smoke (acute) (chronic); Z91.040 Latex allergy status; Z88.3 Allergy status to other anti-infective agents; Z88.8 Allergy status to other drugs, medicaments and biological substances; Z79.01 Long term (current) use of anticoagulants
CPT/HCPCS: 36415; 71046; 74019; 80053; 82150; 82550; 83605; 83690; 83735; 83880; 84484; 85025; 86140; 93005; 96361; 96374; 96375; 99284; J2270; J2405

== ENCOUNTER 2019-02-09 18:58 | Emergency (ER) | payer MEDICARE ==
--- NOTE | 2019-02-09 20:12 | ED ---
GI/ HPI - HPI Summary HPI Summary: Patient complains of lower abdominal pain, pain with urination starting yesterday and blood in urine starting 5 PM today. Denies fever, cough, sore throat, CP, SOB, N/V/D, change in BM, vaginal pain, vaginal discharge, vaginal bleeding.. Medical history CHF, DM 1, A. fib, HDL, HTN, CKD stage IV, obesity, COPD. Patient on oxygen 24 7 at 2 L. Patient on Coumadin. - History of Current Complaint Chief Complaint: EDUrogenitalProblems Time Seen by Provider: 02/09/19 20:08 Stated Complaint: BLOOD IN URINE PER PT Hx Obtained From: Patient Onset/Duration: Started Hours Ago Timing: Constant Severity: Moderate Current Severity: Moderate Vaginal Bleeding Description: Dark Red Pain Intensity: 8 Location of Pain: RLQ, LLQ, Suprapubic Pain Characteristics: Cramping Associated Signs and Symptoms: Positive: Dysuria, Abdominal Pain, UTI Symptoms - Additional Pertinent History Primary Care Physician: SINCERE - Allergy/Home Medications Allergies/Adverse Reactions: Allergies Allergy/AdvReac Type Severity Reaction Status Date / Time latex Allergy Swelling Verified 02/09/19 18:59 shellfish derived Allergy Swelling Verified 02/09/19 18:59 Of Face,Lips,& Throat cephalexin [From Keflex] AdvReac Mild Facial Verified 02/09/19 18:59 Redness/Flushing dofetilide [From Tikosyn] AdvReac Palpitation Verified 02/09/19 18:59 s enoxaparin [From Lovenox] AdvReac "blood too Verified 02/09/19 18:59 thin" PMH/Surg Hx/FS Hx/Imm Hx Endocrine/Hematology History: Reports: Hx Anticoagulant Therapy, Hx Blood Transfusions, Hx Diabetes, Hx Anemia, Other Endocrine/Hematological Disorders Cardiovascular History: Reports: Hx Angina, Hx Auto Implanted Cardiovert Defib, Hx Cardiomegaly, Hx Congestive Heart Failure, Hx Coronary Artery Disease, Hx Hypercholesterolemia, Hx Hypertension, Hx Myocardial Infarction, Hx Pacemaker/ ICD, Hx Syncope Denies: Hx Valvular Heart Disease Respiratory History: Reports: Hx Asthma, Hx Chronic Obstructive Pulmonary Disease (COPD) - pt reports 2L O2 via [place] prn at home, Hx Pleural Effusion, Hx Pulmonary Edema, Hx Sleep Apnea, Other Respiratory Problems/Disorders - bronchitis, 2nd hand smoke exposure, pulmonary fibrosis GI History: Reports: Hx Diverticulosis, Hx Gall Bladder Disease, Hx Gastroesophageal Reflux Disease, Hx Irritable Bowel, Hx Obstructive Bowel, Other GI Disorders - Enlarged liver, polyps History: Reports: Hx Chronic Renal Failure, Hx Kidney Stones Denies: Hx Renal Disease Musculoskeletal History: Reports: Hx Arthritis, Hx Back Problems, Hx Gout Denies: Hx Osteoporosis Sensory History: Reports: Hx Cataracts, Hx Contacts or Glasses, Hx Vision Problem - blurry, Other Sensory Impairments - Neuropathy Denies: Hx Deafness, Hx Hearing Aid Opthamlomology History: Reports: Hx Cataracts, Hx Contacts or Glasses, Hx Vision Problem - blurry, Other Sensory Impairments - Neuropathy Neurological History: Reports: Hx Headaches, Hx Peripheral Neuropathy Denies: Hx Seizures, Hx Transient Ischemic Attacks (TIA) Psychiatric History: Reports: Hx Anxiety, Hx Depression - Surgical History Surgery Procedure, Year, and Place: Cholecystectomy 29 years ago. Appy 29 years ago. HYSTERECTOMY 29 years ago. Pacemaker placement 2009 Hx Anesthesia Reactions: No - Immunization History Date of Tetanus Vaccine: Unk Date of Influenza Vaccine: Fall 2014 Infectious Disease History: No Infectious Disease History: Denies: Hx Hepatitis, Hx of Known/Suspected MRSA, Hx Shingles, Hx Tuberculosis, Traveled Outside the [place] in Last 30 Days - Family History Known Family History: Positive: Cardiac Disease - Brother with [place] at age 34 - Social History Alcohol Use: Rare Hx Substance Use: Yes Substance Use Type: Reports: None Substance Use Comment - Amount & Last Used: tramadol; oxycodone Hx Tobacco Use: No Smoking Status (MU): Never Smoked Tobacco Have You Smoked in the Last Year: No Review of Systems Constitutional: Negative Eyes: Negative ENT: Negative Cardiovascular: Negative Respiratory: Negative Positive: Abdominal Pain Positive: burning, dysuria, hematuria Musculoskeletal: Negative Skin: Negative Neurological: Negative Psychological: Normal All Other Systems Reviewed And Are Negative: Yes Physical Exam - Summary Physical Exam Summary: Abdomen mildly tender bilateral lower quadrants and suprapubically. Abdominal exam was unremarkable. No CVA tenderness bilaterally. Lung sounds clear to auscultation bilaterally. RRR. Triage Information Reviewed: Yes Vital Signs On Initial Exam: Initial Vitals Temp Pulse Resp BP Pulse Ox 98.2 F 76 16 152/78 93 02/09/19 18:59 02/09/19 18:59 02/09/19 18:59 02/09/19 18:59 02/09/19 18:59 Vital Signs Reviewed: Yes Appearance: Positive: Well-Appearing Skin: Positive: Warm Head/Face: Positive: Normal Head/Face Inspection Eyes: Positive: Normal Neck: Positive: Supple Respiratory/Lung Sounds: Positive: Clear to Auscultation Cardiovascular: Positive: Normal Abdomen Description: Positive: Nontender Musculoskeletal: Positive: Normal Neurological: Positive: Normal Psychiatric: Positive: Normal AVPU Assessment: Alert - Moran Coma Scale Best Eye Response: 4 - Spontaneous Best Motor Response: 6 - Obeys Commands Best Verbal Response: 5 - Oriented Coma Scale Total: 15 Diagnostics - Vital Signs Vital Signs Temp Pulse Resp BP Pulse Ox 02/09/19 18:59 98.2 F 76 16 152/78 93 - Laboratory Result Diagrams: 02/09/19 20:35 02/09/19 20:35 Lab Statement: Any lab studies that have been ordered have been reviewed, and results considered in the medical decision making process. GIGU Course/Dx - Course Course Of Treatment: Patient complains of lower abdominal pain, pain with urination starting yesterday and blood in urine starting 5 PM today. Denies fever, cough, sore throat, CP, SOB, N/V/D, change in BM, vaginal pain, vaginal discharge, vaginal bleeding.. Medical history CHF, DM 1, A. fib, HDL, HTN, CKD stage IV, obesity, COPD. Patient on oxygen 24 7 at 2 L. Patient on Coumadin. Physical exam:Abdomen mildly tender bilateral lower quadrants and suprapubically. Abdominal exam was unremarkable. No CVA tenderness bilaterally. Lung sounds clear to auscultation bilaterally. RRR. Vital signs within normal limits. Labs are patient baseline. UA positive for UTI. Patient started on Macrobid. - Diagnoses Provider Diagnoses: Hemorrhagic cystitis Discharge - Sign-Out/Discharge Documenting (check all that apply): Patient Departure Patient Received Moderate/Deep Sedation with Procedure: No - Discharge Plan Condition: Stable Disposition: HOME Prescriptions: Nitrofurantoin Macrocrystal [Nitrofurantoin] 100 mg PO BID 7 Days #14 capsule Patient Education Materials: Urinary Tract Infection in Women (ED) Referrals: January Lopez MD [Primary Care Provider] - Additional Instructions: Take antibiotics as directed. Follow-up with primary care. Return to the ED for any new or worsening symptoms. - Billing Disposition and Condition Condition: STABLE Disposition: Home
[2019-02-09 20:37] LABS: Urine Appearance Cloudy; Urine Bacteria Absent (Absent); Urine Bilirubin Negative (Negative); Urine Blood 3+ (Negative); Urine Glucose 3+(>=500 mg/dL) (Negative); Urine Ketones Negative (Negative); Urine Nitrite Negative (Negative); Urine Protein 2+(100 mg/dL) (Negative); Urine Red Blood Cell 3+(>10/hpf) (Absent); Urine Specific Gravity 1.017 (1.010-1.030); Urine Urobilinogen Negative (Negative); Urine White Blood Cell 3+(>20/hpf) (Absent)
[2019-02-09 20:47] LABS: ABS Eosinophils 0.2 10^3/ul (0-0.6); ABS Lymphocytes 2.3 10^3/ul (1.0-4.8); ABS Monocytes 1.5 10^3/ul (0-0.8); ABS Neutrophils 4.3 10^3/ul (1.5-7.7); Eosinophil % 2.3 %; Hematocrit 36 % (35-47); Hemoglobin 11.4 g/dL (12.0-16.0); Lymphocyte % 27.7 %; Mean Corpuscular HGB Conc 32 g/dL (31-36); Mean Corpuscular Hemoglobin 27 pg (27-31); Mean Corpuscular Volume 86 fL (80-97); Mean Platelet Volume 8.7 fL (7.4-10.4); Nucleated Red Blood Cells % 0.3; Platelet Count 148 10^3/uL (150-450); Red Blood Count 4.17 10^6 /uL (3.70-4.87); Red Cell Distribution Width 22 % (10.5-15); White Blood Count 8.2 10^3/uL (3.5-10.8)
[2019-02-09 21:06] LABS: Urine Color Red
[2019-02-09 21:18] LABS: Albumin 4.2 g/dL (3.2-5.2); Albumin/Globulin Ratio 1.3 (1-3); BUN/Creatinine Ratio 15.1 (8-20); C Reactive Protein 6.59 mg/L (<8.01); Calcium 9.6 mg/dL (8.6-10.3); EGFR African American 44.6 (>60); EGFR Non-African American 36.9 (>60); Globulin 3.2 g/dL (2-4); Potassium 4.1 mmol/L (3.5-5.0); Total Bilirubin 0.4 mg/dL (0.2-1.0); Total Protein 7.4 g/dL (6.4-8.9)
[2019-02-09 21:22] LABS: INR 1.27 (0.82-1.09)
[2019-02-09 21:32] VITALS: BP 139/74
[2019-02-09] MEDS ORDERED: Nitrofurantoin Macrocrystals* 100 MG CAP PO ONE (21:39)
[2019-02-09] MEDS ORDERED: oxyCODONE TAB* 5 MG TAB PO ONE (21:44)
== END 2019-02-09 22:08 | disposition home or self-care (01) ==
LOC: ED 18:58
DX: N30.90 Cystitis, unspecified without hematuria (principal); I48.91 Unspecified atrial fibrillation; E10.22 Type 1 diabetes mellitus with diabetic chronic kidney disease; I13.0 Hypertensive heart and chronic kidney disease with heart failure and stage 1 through stage 4 chronic kidney disease, or unspecified chronic kidney disease; N18.4 Chronic kidney disease, stage 4 (severe); I50.9 Heart failure, unspecified; Z79.01 Long term (current) use of anticoagulants; N39.0 Urinary tract infection, site not specified; E66.9 Obesity, unspecified; J44.9 Chronic obstructive pulmonary disease, unspecified; E78.00 Pure hypercholesterolemia, unspecified; I25.10 Atherosclerotic heart disease of native coronary artery without angina pectoris; K21.9 Gastro-esophageal reflux disease without esophagitis; Z95.810 Presence of automatic (implantable) cardiac defibrillator; K58.9 Irritable bowel syndrome, unspecified
CPT/HCPCS: 36415; 80053; 81003; 81015; 85025; 85610; 86140; 87077; 87086; 99283; A9270-GY

== ENCOUNTER 2019-05-27 19:56 | Inpatient (IN) | payer MEDICARE ==
--- OUTSIDE RECORDS SUMMARY | 2019-05-27 20:08 | XMS REPORT | Summary of Care ---
:1940 Author Organization [facility] Address [address] [facility] [place] [address] Care Team Providers Name Role Phone January Lopez MD Primary Care Provider Reason for Referral Refer to Department Only (Routine) Status Reason Specialty Diagnoses / Referred By Referred To Procedures Contact Contact Pending Review ENDOCRINOLOGY Diagnoses Uncontrolled type 2 diabetes mellitus with complication, with long-term current use of insulin (HCC) January Lopez MD [address] [place] [address] Reason for Visit Reason Comments Follow Up one week Encounter Details Date Type Department Care Team Description 05/18/2019 Office Visit [facility] Gamino Jessica, Chronic systolic congestive heart failure (HCC) (Primary Dx); Practice MD January Uncontrolled type 2 diabetes mellitus with complication, with long-term current use of insulin (HCC) [address] [place] [address] [phone] Allergies Active Allergy Reactions Severity Noted Date Comments Egg Phospholipids, Egg Lecithin 10/20/2007 Keflex Swelling 10/20/2007 Latex Dermatologic Reaction 08/06/2016 Lovenox Hives 12/16/2011 Shell Fish Swelling 11/07/2008 Dofetilide Other High 12/16/2011 documented as of this encounter (statuses as of 05/18/2019) Medications Medication Sig Dispensed Refills Start Date End Date Status cyanocobalamin (B-12) 500 Take 500 mcg by 0 Active MCG Oral Tab mouth EVERY MORNING. Sharon-3 Fatty Acids (FISH Take 1,000 mg 0 Active OIL) 1000 MG Oral Cap by mouth TWICE DAILY. Alcohol Swabs ([facility] USE TWO TIMES A 100 Each 5 07/18/2014 Active ALCOHOL PREP SWABS) 70 % DAY Does not apply Pads bisacodyl (DULCOLAX) 5 MG Take 1 Tab by 60 Tab 5 04/27/2018 Active Oral Tab ECIndications: mouth TWICE Constipation, unspecified DAILY. constipation type Additional information Patient taking differently: 15 mg Oral DAILY, Reported on 01/11/2019 3:48 PM polyethylene glycol Take 1 PKT by mouth 30 Packet 4 04/27/2018 Active (MIRALAX) Oral Pack DAILY. ropinirole (REQUIP) 0.25 MG Take 1-2 Tabs by mouth 60 Tab 0 05/17/2018 Active Oral Tab EVERY BEDTIME. Blood Glucose Monitoring USE DIRECTED 1 Each 0 07/14/2018 Active Suppl (FREESTYLE LITE) Does not apply Device Blood Glucose Monitor 1 Device by Does not 1 Device 0 07/21/2018 Active Software Does not apply apply route DIRECTED. Device Insurance preferred. E11.9 Lancets Does not apply Misc by Does not apply route 200 Each 5 07/23/2018 Active TWICE DAILY. E11.9 - Freestyle Glucose Blood (FREESTYLE 1 Each by Topical route 100 Strip 3 07/23/2018 Active LITE) In Vitro Strip TWICE DAILY. E11.9 fluticasone (FLONASE) 50 USE 2 SPRAYS IN EACH 1 Bottle 5 09/27/2018 Active MCG/ACT Nasal Suspension NOSTRIL ONE TIME A DAY VENTOLIN HFA 108 (90 Base) INHALE 2 PUFFS BY MOUTH 18 Inhaler 5 10/07/2018 Active MCG/ACT Inhalation Aero EVERY 4 HOURS NEEDED Soln FOR SHORTNESS OF BREATH AND WHEEZING Olopatadine 0.1 % Place 2 Drops in both 5 mL 3 10/15/2018 Active Ophthalmic Solution eyes DAILY. metoprolol succinate Take 1 Tab by mouth TWICE 60 Tab 5 10/20/2018 Active (TOPROL XL) 100 MG Oral DAILY. TABLET SR 24 HRIndications: Chronic atrial fibrillation (HCC), Nonischemic cardiomyopathy (HCC) guaifenesin (MUCINEX) 600 Take 600 mg by mouth TWO 0 11/15/2018 Active MG Oral TABLET SR 12 HR TIMES DAILY NEEDED. Dxigvazwmig-Ipinqpnur-Vwwhk Take 1 INHL by inhalation 1 Each 5 11/18/2018 Active t (TRELEGY ELLIPTA) DAILY. 100-62.5-25 MCG/INH Inhalation AEROSOL POWDER, BREATH ACTIVATED Pravastatin Sodium 80 MG Take 80 mg by mouth 0 Active Oral Tab DAILY. Insulin Pen Needle (SURE Inject 1 Each beneath the 155 Each 2 12/09/2018 Active COMFORT PEN NEEDLES) 30G X skin FIVE TIMES DAILY. 8 MM Does not apply Misc allopurinol (ZYLOPRIM) 100 Take 1 Tab by mouth 30 Tab 5 12/13/2018 Active MG Oral Tab DAILY. Cholecalciferol (VITAMIN Take 2,000 mg by mouth 60 Cap 5 12/13/2018 Active D3) 1000 units Oral Cap DAILY. montelukast (SINGULAIR) 10 TAKE 1 TABLET BY MOUTH 30 Tab 5 12/22/2018 Active MG Oral Tab EVERY DAY potassium chloride (K-DUR) TAKE 1 TABLET BY MOUTH 60 Tab 5 01/27/2019 Active 20 MEQ Oral Tab TWO TIMES DAILY CRIndications: History of low potassium dicyclomine (BENTYL) 10 MG Take 1 Cap by mouth FOUR 120 Cap 3 02/14/2019 Active Oral Cap TIMES DAILY NEEDED (abdominal cramps). Omeprazole 40 MG Oral TAKE 1 CAPSULE BY MOUTH 60 Cap 5 03/11/2019 Active CAPSULE DELAYED RELEASE TWO TIMES DAILY Spironolactone 50 MG Oral Take 1 Tab by mouth DAILY 90 Tab 3 03/11/2019 Active Tab 0700 on Empty Stomach. torsemide (DEMADEX) 20 MG TAKE 3 TABLETS BY MOUTH 75 Tab 5 03/24/2019 Active Oral Tab EVERY OTHER DAY ALTERNATING WITH 2 TABLETS BY MOUTH EVERY OTHER DAY linaGLIPtin (TRADJENTA) 5 Take 5 mg by mouth DAILY. 30 Tab 5 04/05/2019 Active MG Oral Tab Insulin Lispro 100 UNIT/ML INJECT 15 UNITS 6 mL 5 04/14/2019 Active Subcutaneous Solution SUBCUTANEOUSLY (UNDER THE Pen-injectorIndications: SKIN) THREE TIMES DAILY Type 2 diabetes mellitus BEFORE MEALS with complication, with long-term current use of insulin (HCC) pregabalin (LYRICA) 50 MG Take 1 Cap by mouth 150 Cap 3 04/25/2019 Active Oral Cap DIRECTED. Max Daily Amount: 5 Caps. 2 cap am and 3 cap pm HYDROcodone-acetaminophen TAKE ONE TABLET BY MOUTH 90 Tab 0 05/03/2019 Active (NORCO) 5-325 MG Oral Tab EVERY 6 HOURS NEEDED FOR PAIN MAXIMUM DAILY DOSE OF 4 PER DAY Additional information Patient taking differently: 2 Tab, Reported on 05/10/2019 11:24 AM Insulin Glargine (LANTUS Inject 90-115 Units 60 mL 5 05/17/2019 Active SOLOSTAR) 100 UNIT/ML beneath the skin TWICE Subcutaneous Solution DAILY. Pen-injector warfarin (COUMADIN) 5 MG Oral Take 1-1.5 Tabs by mouth 90 Tab 3 05/18/2019 Active TabIndications: Chronic atrial DAILY. As directed which fibrillation (HCC) is 7.5mg Mon/Wed/Fri. 5mg remaining days of week metolazone (ZAROXOLYN) 2.5 MG Take 1 Tab by mouth DAILY. 30 Tab 0 2018 Active Oral Tab documented as of this encounter (statuses as of 05/18/2019) Active Problems Problem Noted Date Elective replacement indicated for pacemaker 03/11/2019 Mechanical breakdown of cardiac electronic device 02/24/2019 Overview: Added automatically from request for surgery [id number] Spinal stenosis of lumbar region with neurogenic claudication 10/12/2018 RLS (restless legs syndrome) 01/28/2018 Uncontrolled type 2 diabetes mellitus with complication, with long-term 2016 current use of insulin VALERIA (acute kidney injury) 08/12/2016 CKD (chronic kidney disease) stage 4, GFR 15-29 ml/min 08/12/2016 Unstable angina 08/12/2016 Chronic atrial fibrillation 07/14/2016 Left to right cardiac shunt 05/15/2016 Uncomplicated severe persistent asthma 05/15/2016 ASD (atrial septal defect) 05/15/2016 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 Pineda for Sinus node dysfunction Diabetes mellitus 07/03/2011 BMI 40.0-44.9, adult 03/13/2011 HTN (hypertension) 11/01/2010 COPD (chronic obstructive pulmonary disease) 11/01/2010 Overview: [facility] [employer] [facility] 2 lpm q 24 hrs. Chronic diastolic heart failure 11/01/2010 half-way current use of anticoagulants with INR goal of 2.0-3.0 06/08/2008 Overview: Managed by: Talia Mathis Referring Provider: Sienna Indication: afib, chronic Target Range: 2.0-3.0 Duration: Indefinite Additional factors influencing anticoagulation: Additional factors influencing anticoagulation: CHADS2 score of 3 for age > 75, hypertension, diabetes [id number] score of 5 for age > 75, hypertension, diabetes, female gender Allopurinol increases warfarin effect Sharon 3 fatty acid increases bleeding risk Omeprazole increases warfarin effect Spironolactone decreases warfarin effect Updated Referral: 12/2011, 01/2013, 02/2014, 05/2015, 07/14/16, 10/2017, 04/11/19 Updated ACS Orders: 03/23/14, 05/2015, 08/15/16, 11/20/17, 05/10/19 Mitral regurgitation 10/20/2007 Overview: mild Seasonal allergies 10/20/2007 Asthma-COPD overlap syndrome 10/20/2007 Overview: Mild, intermittent Diverticulitis 10/20/2007 Overview: History of GERD (gastroesophageal reflux disease) 10/20/2007 Peripheral neuropathy 10/20/2007 Overview: Secondary to diabetes Anemia Overview: Dr. Surya SOLIS (degenerative joint disease) Overview: knees Hyperlipidemia Atrial fibrillation Overview: paroxysmal CAD (coronary artery disease) Overview: 40% LAD cath- 2006, cath- 2008 20% LAD documented as of this encounter (statuses as of 05/18/2019) Resolved Problems Problem Noted Date Resolved Date Aftercare following joint replacement 11/03/2011 09/09/2012 Encounter for therapeutic drug monitoring 04/10/2010 11/18/2010 Diabetes mellitus type II 10/20/2007 07/03/2011 CAD (coronary artery disease) 05/24/2010 Overview: 40% LAD cath- 2006 documented as of this encounter (statuses as of 05/18/2019) Immunizations Name Administration Dates Next Due Depo Medrol (160mg) 06/06/2010 Depo Medrol (80mg) 04/16/2012, 02/06/2011, 02/21/2010, 02/21/2010 Hyalgan (20 mg) 08/25/2012 Lidocaine 1% (Not Billed) 04/16/2012, 02/21/2010, 02/21/2010 PNEUMOCOCCAL POLYSACCHARIDE VACCINE 05/17/2018, 06/18/2005 Pneumococcal Conjugate(13 Valent) 01/01/2015 Procrit (20,000u) 05/13/2010 05/15/2010 TDAP Vaccine 05/08/2015 ZOSTER (ZOSTAVAX) VACCINE 05/08/2015 documented as of this encounter Social History Tobacco Use Types Packs/Day Years Used Date Never Smoker Smokeless Tobacco: Never Used Alcohol Use Drinks/Week oz/Week Comments No 0 Standard drinks or equivalent 0.0 Sex Assigned at Date Recorded Not on file Job Start Date Occupation Industry Not on file Not on file Not on file Travel History Travel Start Travel End No recent travel history available. documented as of this encounter Last Filed Vital Signs Vital Sign Reading Time Taken Comments Blood Pressure 118/60 05/18/2019 11:32 AM EDT Pulse 72 05/18/2019 11:32 AM EDT Temperature - - Respiratory Rate - - Oxygen Saturation 92% 05/18/2019 11:32 on 2L/min O2 NC at AM EDT rest Inhaled Oxygen - - Concentration Weight 114.4 kg (252 lb 4.8 05/18/2019 11:32 oz) AM EDT Height 158.8 cm (5' 2.5") 05/18/2019 11:32 AM EDT Body Mass Index 45.41 05/18/2019 11:32 AM EDT documented in this encounter Patient Instructions Patient InstructionsJanuary Lopez MD - 05/18/2019 11:40 AM EDT1. Schedule appointment with Dr. Chandra 2. Call with sugar diary 3. Take Zaroxolyn 2.5 mg once a day until your weight is 245 lb 4. Take Torsemide 40 mg once a day (2 tablets of 20 mg) 5. Follow up in 1 week and as needed documented in this encounter Progress Notes January Lopez MD - 05/18/2019 11:40 AM EDT PATIENT: Emi Forte : 1940 DATE OF SERVICE: 05/18/2019 Patient comes follow up CHF, DM Gained 5 lb since last visit No increase in SOB Didn't bring sugar diary today Past Medical History: Diagnosis Date Anemia Dr. Ewing Asthma 10/20/2007 Mild, intermittent Chronic kidney disease, stage 4, severely decreased GFR (HCC) COPD (chronic obstructive pulmonary disease) ([facility]) 11/01/2010 Diabetes mellitus ([facility]) 10/20/2007 eye - 10/2014 , feet - 10/12 Diverticulitis 10/20/2007 History of DJD (degenerative joint disease) knees GERD (gastroesophageal reflux disease) 10/20/2007 HTN (hypertension) 11/01/2010 Hyperlipidemia Mitral regurgitation 10/20/2007 mild Paroxysmal atrial fibrillation (HCC) 10/20/2007 Peripheral neuropathy 10/20/2007 Secondary to diabetes Seasonal allergies 10/20/2007 Sleep apnea CPAP Outpatient Medications as of 05/18/2019 Medication Sig Dispense Refill Alcohol Swabs ([facility]S ALCOHOL PREP SWABS) 70 % Does not apply Pads USE TWO TIMES A DAY 100 Each 5 allopurinol (ZYLOPRIM) 100 MG Oral Tab Take 1 Tab by mouth DAILY. 30 Tab 5 bisacodyl (DULCOLAX) 5 MG Oral Tab EC Take 1 Tab by mouth TWICE DAILY. ( Patient taking differently: Take 15 mg by mouth DAILY.) 60 Tab 5 Blood Glucose Monitor Software Does not apply Device 1 Device by Does not apply route DIRECTED. Insurance preferred. E11.9 1 Device 0 Blood Glucose Monitoring Suppl (FREESTYLE LITE) Does not apply Device USE DIRECTED 1 Each 0 Cholecalciferol (VITAMIN D3) 1000 units Oral Cap Take 2,000 mg by mouth DAILY. 60 Cap 5 cyanocobalamin (B-12) 500 MCG Oral Tab Take 500 mcg by mouth EVERY MORNING. dicyclomine (BENTYL) 10 MG Oral Cap Take 1 Cap by mouth FOUR TIMES DAILY NEEDED (abdominalcramps). 120 Cap 3 fluticasone (FLONASE) 50 MCG/ACT Nasal Suspension USE 2 SPRAYS IN EACH NOSTRIL ONE TIME A DAY1 Bottle 5 Ndivxvwbghq-Fabiehkus-Eulbqs (TRELEGY ELLIPTA) 100-62.5-25 MCG/INH Inhalation AEROSOL POWDER,BREATH ACTIVATED Take 1 INHL by inhalation DAILY. 1 Each 5 Glucose Blood (FREESTYLE LITE) In Vitro Strip 1 Each by Topical route TWICE DAILY. E11.9 100 Strip 3 guaifenesin (MUCINEX) 600 MG Oral TABLET SR 12 HR Take 600 mg by mouth TWO TIMES DAILY NEEDED. HYDROcodone-acetaminophen (NORCO) 5-325 MG Oral Tab TAKE ONE TABLET BY MOUTH EVERY 6 HOURS ASNEEDED FOR PAIN MAXIMUM DAILY DOSE OF 4 PER DAY (Patient taking differently: 2 Tabs.) 90 Tab 0 Insulin Glargine (LANTUS SOLOSTAR) 100 UNIT/ML Subcutaneous Solution Pen- injector Inject 90-115 Units beneath the skin TWICE DAILY. 60 mL 5 Insulin Lispro 100 UNIT/ML Subcutaneous Solution Pen-injector INJECT 15 UNITS SUBCUTANEOUSLY (UNDER THE SKIN) THREE TIMES DAILY BEFORE MEALS 6 mL 5 Insulin Pen Needle (SURE COMFORT PEN NEEDLES) 30G X 8 MM Does not apply Misc Inject 1 Each beneath the skin FIVE TIMES DAILY. 155 Each 2 Lancets Does not apply Misc by Does not apply route TWICE DAILY. E11.9 - Freestyle 200 Each 5 linaGLIPtin (TRADJENTA) 5 MG Oral Tab Take 5 mg by mouth DAILY. 30 Tab 5 metoprolol succinate (TOPROL XL) 100 MG Oral TABLET SR 24 HR Take 1 Tab by mouth TWICE DAILY.60 Tab 5 montelukast (SINGULAIR) 10 MG Oral Tab TAKE 1 TABLET BY MOUTH EVERY DAY 30 Tab 5 Olopatadine 0.1 % Ophthalmic Solution Place 2 Drops in both eyes DAILY. 5 mL 3 Sharon-3 Fatty Acids (FISH OIL) 1000 MG Oral Cap Take 1,000 mg by mouth TWICE DAILY. Omeprazole 40 MG Oral CAPSULE DELAYED RELEASE TAKE 1 CAPSULE BY MOUTH TWO TIMES DAILY 60 Cap 5 polyethylene glycol (MIRALAX) Oral Pack Take 1 PKT by mouth DAILY. 30 Packet 4 potassium chloride (K-DUR) 20 MEQ Oral Tab CR TAKE 1 TABLET BY MOUTH TWO TIMES DAILY 60 Tab 5 Pravastatin Sodium 80 MG Oral Tab Take 80 mg by mouth DAILY. pregabalin (LYRICA) 50 MG Oral Cap Take 1 Cap by mouth DIRECTED. Max Daily Amount: 5 Caps.2 cap am and 3 cap pm 150 Cap 3 ropinirole (REQUIP) 0.25 MG Oral Tab Take 1-2 Tabs by mouth EVERY BEDTIME. 60 Tab 0 Spironolactone 50 MG Oral Tab Take 1 Tab by mouth DAILY 0700 on Empty Stomach. 90 Tab 3 torsemide (DEMADEX) 20 MG Oral Tab TAKE 3 TABLETS BY MOUTH EVERY OTHER DAY ALTERNATING WITH 2TABLETS BY MOUTH EVERY OTHER DAY 75 Tab 5 VENTOLIN HFA 108 (90 Base) MCG/ACT Inhalation Aero Soln INHALE 2 PUFFS BY MOUTH EVERY 4 HOURSAS NEEDED FOR SHORTNESS OF BREATH AND WHEEZING 18 Inhaler 5 No current facility-administered medications on file as of 05/18/2019. BP 118/60 (BP Location: Left arm, Patient Position: Sitting) | Pulse 72 | Ht 5 ' 2.5" (1.588 m) | Wt 252 lb 4.8 oz (114.4 kg) | SpO2 92% Comment: on 2L/min O2 NC at rest | BMI 45.41 kg/m General appearance: alert, in no distress and chronically ill appearing. Chest: clear to auscultation, no wheezes, rales or rhonchi, symmetric air entry. CVS exam: normal rate, regular rhythm, normal S1, S2, no murmurs, rubs, clicks or gallops. Exam of extremities: trace pedal edema ICD-9-CM ICD-10-CM 1. Chronic systolic congestive heart failure (HCC) 428.22 I50.22 428.0 2. Uncontrolled type 2 diabetes mellitus with complication, with long-term current use of insulin (HCC) 250.82 E11.8 V58.67 E11.65 Z79.4 Patient Instructions 1. Schedule appointment with Dr. Chandra 2. Call with sugar diary 3. Take Zaroxolyn 2.5 mg once a day until your weight is 245 lb 4. Take Torsemide 40 mg once a day (2 tablets of 20 mg) 5. Follow up in 1 week and as needed Author: January Lopez MD 05/18/2019 22:07 documented in this encounter Plan of Treatment Date Type Specialty Care Team Description 05/27/2019 AntiCoag Anticoagulation 05/27/2019 Office Visit Family Practice January Lopez MD [address] [place] [address] [phone] 06/06/2019 GI Procedure Gastroenterology Eliu Altamirano, DO [address] [place] [id number] [phone] 06/06/2019 Hospital Encounter Anesthesiology Eliu Altamirano, Short Procedure DO [address] [place] [id number] [phone] 06/06/2019 Surgery Eliu Altamirano, COLONOSCOPY DO [address] [place] [id number] 07/13/2019 Office Visit Cardiology Ta Waddell MD [address] [place] [address] 08/03/2019 Office Visit Endocrinology Sandra Sherman, [employer] [address] [place] [address] [phone] 08/04/2019 Office Visit Pulmonary Alirio Cabello MD [address] [place] [address] 08/17/2019 [facility] 12/06/2019 [facility] 04/06/2020 [facility] Name Type Priority Associated Diagnoses Order Schedule REFER TO ENDOCRINOLOGY Referral Routine Uncontrolled type 2 Expected: diabetes mellitus with 05/18/2019, Expires: complication, with 05/18/2020 long-term current use of insulin (HCC) Health Maintenance Due Date Last Done Comments ZOSTER IMMUNIZATION SERIES 07/03/2015 05/08/2015 (2 of 3) Diabetic Eye Exam 07/23/2017 07/23/2016, 10/31/2014, 05/11/2013 HEMOGLOBIN A1C 08/03/2019 05/03/2019, 02/01/2019, 09/30/2018, Additional history exists DEPRESSION SCREENING 12/25/2019 12/24/2018 FALL RISK ASSESSMENT 12/25/2019 12/24/2018, 12/24/2018 FOOT EXAM 02/18/2020 02/17/2019, 02/17/2019, 02/17/2019, Additional history exists MEDICARE ANNUAL WELLNESS 05/10/2020 05/10/2019, 03/15/2018, VISIT 07/16/2016, Additional history exists OSTEOPOROSIS SCREENING 10/08/2021 10/08/2011 HIV SCREENING Completed 12/16/2013 PNEUMOCOCCAL 65+YRS Completed 05/17/2018, 01/01/2015, 06/18/2005 HPV IMMUNIZATION SERIES Aged Out No longer eligible based on patient's age to complete this topic MENINGOCOCCAL VACCINE IMM Aged Out No longer eligible based on patient's age to complete this topic documented as of this encounter Goals Goal Patient Goal Associated Recent Patient-Stated? Author Type Problems Progress Blood Pressure Blood Pressure HTN 118/60 No Jessica, < 140/90 (hypertension) (05/18/2019 January, 11:32 AM EDT) Note: Hypertension Care Plan Based on the patient's clinical history and according to JNC 8 guidelines target blood pressure goal is less than 140/90. Based on the patient's last blood pressure of BP: 118/70 mmHg the patient is at at goal. As your provider, it is important that I advise you regarding: your current medications and help you with any challenges you may face taking your medications as directed (ex. instructions, cost, side effects, and interactions). Important lifestyle changes: weight reduction, diet and dietary sodium reduction your clinical goals and how you can achieve success: weight reduction and diet improvements medication management: adjusted medications as appropriate patient education/self-management tools provided: Yes To successfully manage my Hypertension I will: monitor my blood pressure daily, understanding that my goal is less than 140/ 90 per my healthcare provider's recommendation. I will schedule an appointment with my provider if consistent abnormal readings greater than 160/100. take medications every day as prescribed by my healthcare provider and if unable to take them I will discuss with my provider. monitor for symptoms of chest pain, chest tightness/pressure, irregular heartbeat, persistent dizziness, radiating arm pain, and neck or jaw pain. If any of these symptoms are noticed I will seek medical attention immediately by calling 911 follow a diet rich in fruits, vegetables, and low-fat dairy products with reduced content of saturated & total fat. I will reduce my sodium intake daily. An example is the DASH diet. To obtain more information please refer to the DASH Eating Plan listed in Educational Resources. record my blood pressure results. [employer] is safe and secure way for you to do this in your medical record online. limit alcohol consumption. For men two drinks per day and women one drink per day. if currently smoking, will discuss how to quit smoking with my healthcare provider and work towards quitting. Educational Resources: National Heart, Lung, & Blood [place] http://nhlbi.nih.gov/hbp/index.html The DASH Diet Eating Plan http://www.nhlbi.nih.gov/health/health-topics/ topics/dash/ Academy of Nutrition & DIetetics http://eatright.org National Smoking Cessation Site http://smokefree.gov Blood Pressure < Blood Pressure 118/60 (05/18/2019 No January Lopez, 140/90 11:32 AM EDT) Note: This is an individualized treatment (blood pressure) goal for Emi Forte: Displayed above (on the left) is your goal for blood pressure control. Your most recent blood pressure is also shown above, on the right. You should try to achieve blood pressures that are lower than your goal listed above (on the left). Weight increase vs. 18 CHF 24.3 (05/18/2019 11:32 AM No January Lopez MD mo min (lbs) < 5 EDT) Note: This is an individualized treatment (congestive heart failure, CHF) goal for Emi Forte: Displayed above (on the right) is how many pounds you are in excess of your lowest weight over the past 18 months. Note that lower numbers are better. Excessive weight gain often indicates fluid reten tion and worsening heart failure. You should contact your doctor immediately if the above number is too high (above your goal, the number on the left). Diabetes < 7.0 Diabetes Diabetes mellitus 9.7 (05/03/2019 8:06 No MINNIE Lopez EDT) MD January Note: Diabetes Care Plan According to current 2014 ADA guidelines the patient A1C goal is less than 7. The patient's last A1C was Lab Results Lab Results Value Date/Time GLYCO 9.7 10/03/2014 0908 GLYCO 12.0 12/09/2013 1108 GLYCO 8.2% 10/15/2011 1022 The patient is:above goal . Improved As your provider, it is important that I advise you regarding: your current medications and help you with any challenges you may face taking your medications as directed (ex. instructions, cost, side effects, and interactions). lifestyle changes:diet your clinical goals and how you can achieve success:weight reduction, diet management and glucose monitoring medication management: adjusted medications as appropriate patient education/self-management tools provided: Yes To successfully manage my Diabetes I will: have lab work every six months if my previous A1c was 7 or less. If my results were greater than 7, I will have lab work every three months. My goal is to control my diabetes by keeping A1c below 7.0 take medications every day as prescribed by my healthcare provider and if unable to take them I will discuss with my provider. check feet daily. If sores or irritation are noticed, will seek medical attention. follow a low carbohydrate and low fat diet. My goal is an LDL (bad cholesterol) number less than 100 when I have my routine lab work. check blood sugar as instructed and will call my healthcare provider if the results are consistently below 70 or above 300. I will monitor for symptoms of low blood sugar (feeling faint, dizzy, lig htheaded, jittery, sweaty, or hungry), if symptoms are noticed, I will eat or drink something (glucose tabs, orange juice, candy) to help raise sugar. record my blood sugar results (including dextrose sticks). [employer] is safe and secure way for you to do this in your medical record online. try to obtain an ideal body weight. My recent weight was Weight: 264 lb ( 119.75 kg) to prevent kidney problems common to people with diabetes I will complete a yearly Microalbumin to check for protein in urine. I will talk with my healthcare provider about medications to prevent diabetic renal disease. to prevent diabetic retinopathy I will see an eye doctor yearly. A yearly dilated eye exam helps prevent blindness. if currently smoking, will discuss how to quit smoking with my healthcare provider and work towards quitting. Diabetes < 7.0 Diabetes Diabetes mellitus 9.7 (05/03/2019 8:06 No MINNIE Lopez EDT) MD January Note: Diabetes Care Plan According to current 2014 ADA guidelines the patient A1C goal is less than 7. The patient's last A1C was Lab Results Lab Results Value Date/Time GLYCO 9.7 10/03/2014 0908 GLYCO 12.0 12/09/2013 1108 GLYCO 8.2% 10/15/2011 1022 The patient is:above goal . As your provider, it is important that I advise you regarding: your current medications and help you with any challenges you may face taking your medications as directed (ex. instructions, cost, side effects, and interactions). Important lifestyle changes:diet your clinical goals and how you can achieve success:weight reduction, diet management and glucose monitoring medication management: adjusted medications as appropriate patient education/self-management tools provided: Yes To successfully manage my Diabetes I will: have lab work every six months if my previous A1c was 7 or less. If my results were greater than 7, I will have lab work every three months. My goal is to control my diabetes by keeping A1c below 7.0 take medications every day as prescribed by my healthcare provider and if unable to take them I will discuss with my provider. check feet daily. If sores or irritation are noticed, will seek medical attention. follow a low carbohydrate and low fat diet. My goal is an LDL (bad cholesterol) number less than 100 when I have my routine lab work. check blood sugar as instructed and will call my healthcare provider if the results are consistently below 70 or above 300. I will monitor for symptoms of low blood sugar (feeling faint, dizzy, lig htheaded, jittery, sweaty, or hungry), if symptoms are noticed, I will eat or drink something (glucose tabs, orange juice, candy) to help raise sugar. record my blood sugar results (including dextrose sticks). Ed4U is safe and secure way for you to do this in your medical record online. try to obtain an ideal body weight. My recent weight was Weight: 268 lb ( 121.564 kg). My weight loss goal for my next office visit is 258 to prevent kidney problems common to people with diabetes I will complete a yearly Microalbumin to check for protein in urine. I will talk with my healthcare provider about medications to prevent diabetic renal disease. to prevent diabetic retinopathy I will see an eye doctor yearly. A yearly dilated eye exam helps prevent blindness. if currently smoking, will discuss how to quit smoking with my healthcare provider and work towards quitting. Glycohemoglobin A1c < 7.0 Diabetes 9.7 (05/03/2019 8:06 No January Lopez AM EDTLiza ALDRIDGE Note: This is an individualized treatment (diabetes control, HgbA1C) goal for Emi Forte: Displayed above is your progress towards your HgbA1C goal. Your goal is shown above (on the left); your most recent HgbA1C is shown on the right. Note that lower numbers are better. Congestive Heart Failure Lifestyle Chronic diastolic heart No Galyanova, January, failure MD Note: Congestive Heart Failure (CHF) Care Plan Congestive Heart Failure is also known as CHF or heart failure. It occurs when the heart muscles weaken and have trouble pumping blood effectively. Fluid then collects in the lungs and/or other parts of the body due to the heart not pumping as well. This can cause the body to not receive enough oxygen, resulting in fatigue, weakness, and unhealthy effects to the body. The diagnosis of heart failure is largely based off a careful review of patient history and a comprehensive physical examination. (ref. AHA Guidelines) As your provider, it is important that I advise you regarding: your current medications and help you with any challenges you may face taking your medications as directed (ex. instructions, cost, side effects, and interactions). Important lifestyle changes: weight monitoring, diet and dietary sodium restriction your clinical goals and how you can achieve success: weight monitoring and diet improvements medication management: adjusted medications as appropriate patient education/self-management tools provided: Yes To successfully manage my Congestive Heart Failure I will: weigh myself daily. A weight gain of 2-3 pounds in 1 day or 5 pounds in a week is a cause for concern. Contact my healthcare provider if I notice an increase in weight. Weight should be taken in th e morning, after urinating and before eating or drinking. record my weight daily. [employer]rafaele is safe and secure way for you to do this in your medical record online. take medications every day as prescribed by my healthcare provider and if unable to take them I will discuss with my provider. use a diuretic as prescribed by my healthcare provider to help minimize swelling/fluid retention. monitor my symptoms for new or increased shortness of breath or wheezing; new or worsened cough, especially if sputum/mucus is frothy or bloody; increased swelling of my legs and/or ankles; fast or irregular heartbeat; or an increase in weight of 2-3 pounds in 1 day or 5 pounds in a week. If symptoms noticed, I will notify my healthcare provider. follow a low sodium diet. I will not add additional salt to food. I will choose food products with less than 300 mg per serving. I will limit intake of processed meats (sausage, ham, lunch meat, et c). I will limit my intake of fried foods or high fat content (chips, donuts, cake, etc). I will broil or bake fish and chicken on a grate so that the grease will drain off while cooking. limit alcohol consumption. For men two drinks per day and women one drink per day. if currently smoking, will discuss how to quit smoking with my healthcare provider and work towards quitting. Keep immunizations current Lifestyle No January Lopez MD Note: This is an individualized lifestyle goal for Eim Forte: Please be sure to keep up-to-date on recommended immunizations. For example, this would include a yearly influenza vaccine. Immunization status can be seen by looking at the Health Maintenance sections of your eGuthrie, Plan of Care, and any After Visit Summaries. Consume a ga-pivdh-manx diet Lifestyle No January Lopez MD Note: This is an individualized lifestyle goal for Emi Forte: Please do not add additional salt to your food. Additional salt may lead to fluid retention and worsen your congestive heart failure. Take all prescribed medications as Self-management No January Lopez MD directed Note: This is an individualized self-management goal for Emi Forte: Please take all prescribed medications as directed. 1. Do not skip doses. If you cannot afford your medications, talk with your doctor. 2. Use a pill reminder system such as a pill box if needed. Your pharmacist can help you with this. 3. Contact your Pharmacy 5 days before your medication runs out. If you cannot take your medications for any reasons, talk with your doctor. 4. Please bring all of your medication bottles and inhalers (or a list of all your medications/inhalers) with you to every visit. Potential barriers to meeting all of your care plan goals will continue to be addressed on an ongoing basis. Check your weight daily Self-management No January Lopez MD Note: This is an individualized self-management goal for Emi Forte: Please check your weight daily. Refer to the accompanying CHF treatment goal and call your doctor immediately for further instructions on how to respond to unexpected weight gain. documented as of this encounter Implants Implanted Type Area Tile Erector Device Shelf Model / Identifier Expiration Serial / Lot Date Accent Dual Chamber [id number] - [id number] Left: ST. SIM 02/26/2012 [id number] / Implanted: Qty: 1 on 11/06/2010 at [facility] [id number] / Lead Tendril # 1888t-52 - [id number] Left: ST SIM 07/28/2013 1888T-[id number] / Implanted: Qty: 1 on 11/06/2010 at [facility]/ [place] [id number] / ER Tendril Lead 2087tc/58cm - [id number] Left: ST. SIM 10/28/2013 2088TC/ 58CM / Implanted: Qty: 1 on 11/06/2010 at [facility] [id number] / Bone Cement, Double 80gm - [id number] Right: DEPUY [id number] / Implanted: Qty: 1 on 10/20/2011 at [facility] Knee / [id number] Tibial Plate Size 5 Nexgen - [id number] Right: LONA MONCADA 5980-47- 01 / Implanted: Qty: 1 on 10/20/2011 at [facility] [employer] [employer] / [id number] Lps-Flex Option Femoral E Rt - [id number] Right: LONA MONCADA 5964-15 -52 / Implanted: Qty: 1 on 10/20/2011 at [facility] [employer] / [id number] Lps-Flex Taper Plugs - [id number] Right: LONA MONCADA / Implanted: Qty: 1 on 10/20/2011 at [facility] [employer] / [id number] Art Surface 12mm Green - [id number] Right: LONA MONCADA / Implanted: Qty: 1 on 10/20/2011 at [facility] [employer] [employer] / [id number] Assurity Mri [id number] Generator - [id number] ST. SIM 08/27/2020 [id number] / Implanted: Qty: 1 on 03/11/2019 by Talha Pineda MD at [facility] [id number] / documented as of this encounter Results Not on filedocumented in this encounter Visit Diagnoses Diagnosis Chronic systolic congestive heart failure (HCC) - Primary Chronic systolic heart failure Uncontrolled type 2 diabetes mellitus with complication, with long-term current use of insulin (HCC) documented in this encounter Insurance Payer Benefit Plan / Subscriber ID Effective Dates Phone Address Type Group [employer] MEDICARE EXCELL xxxxxxxxxxxx Effective for [employer] ADVANTAGE MEDICARE BLUE all dates PPO ([phone]) Guarantor Name Account Type Relation to Date of Phone Billing Address Patient Emi Forte Personal/Family 1940 [phone] [facility] [facility] (Home) [place], [place] [phone] (Work) documented as of this encounter Advance Directives Code Status Date Activated Date Inactivated Comments Full Code 03/11/2019 7:04 AM Does the patient have decision making Yes capacity? Order was discussed with: Unable to determine at this time I discussed all options and Unable to determine at this time (full patient/surrogate requested and agreed to: code until choice is made and new order placed) DNR/DNI 08/12/2016 6:42 PM 08/20/2016 2:41 PM Does patient have decision making capacity? yes Order discussed with: Patient I discussed all options and patient/surrogate requested and agreed to: DNR/DNI
--- OUTSIDE RECORDS SUMMARY | 2019-05-27 20:08 | XMS REPORT | Summary of Care ---
:1940 Author Organization [facility] Address [address] [place] [address] Care Team Providers Name Role Phone January Lopez MD Primary Care Provider Reason for Visit Reason Comments Follow Up 1wk Encounter Details Date Type Department Care Team Description 05/27/2019 Office Visit [facility] systolic Practice MD January congestive heart [address] failure (HCC) ([place] [address] [place] [address] Dx) [phone] Allergies Active Allergy Reactions Severity Noted Date Comments Egg Phospholipids, Egg Lecithin 10/20/2007 Keflex Swelling 10/20/2007 Latex Dermatologic Reaction 08/06/2016 Lovenox Hives 12/16/2011 Shell Fish Swelling 11/07/2008 Dofetilide Other High 12/16/2011 documented as of this encounter (statuses as of 05/27/2019) Medications Medication Sig Dispensed Refills Start Date End Date Status cyanocobalamin (B-12) 500 Take 500 mcg by 0 Active MCG Oral Tab mouth EVERY MORNING. [place]-3 Fatty Acids (FISH Take 1,000 mg 0 [...] 3 10/15/2018 Active Ophthalmic Solution eyes DAILY. guaifenesin (MUCINEX) 600 Take 600 mg by mouth TWO 0 11/15/2018 Active MG Oral TABLET SR 12 HR TIMES DAILY NEEDED. Fyltbzsnzxt-Rbloblpbw-Mbnrc Take 1 INHL by inhalation 1 Each [...] 2 cap am and 3 cap pm Insulin Glargine (LANTUS Inject 90-115 Units 60 mL 5 05/17/2019 Active SOLOSTAR) 100 UNIT/ML beneath the skin TWICE Subcutaneous Solution DAILY. Pen-injector Additional information Patient taking differently: 90-115 Units Subcutaneous BID, 115 units am and 95 units pm, Reported on 05/27/2019 11:25 AM warfarin (COUMADIN) 5 MG Take 1-1.5 Tabs by 90 Tab 3 05/18/2019 Active Oral TabIndications: mouth DAILY. As Chronic atrial directed which is fibrillation (HCC) 7.5mg Mon/Wed/Fri. 5mg remaining days of week metolazone (ZAROXOLYN) Take 1 Tab by mouth 30 Tab 0 05/18/2019 Active 2.5 MG Oral Tab DAILY. HYDROcodone-acetaminophe Take 1 Tab by mouth 90 Tab 0 05/20/2019 Active n (NORCO) 10-325 MG Oral EVERY SIX HOURS Tab NEEDED (pain). Max Daily Amount: 4 Tabs. metoprolol succinate TAKE 1 TABLET BY 60 Tab 5 05/23/2019 Active (TOPROL XL) 100 MG Oral MOUTH TWO TIMES TABLET SR 24 DAILY HRIndications: Chronic atrial fibrillation (HCC), Nonischemic cardiomyopathy (HCC) Pravastatin Sodium 80 MG TAKE 1 TABLET BY 30 Tab 5 05/23/2019 Active Oral Tab MOUTH EVERY DAY AT 2:00PM HYDROcodone-acetaminophe TAKE ONE TABLET BY 90 Tab 0 05/03/2019 05/27/20 Discontinued n (NORCO) 5-325 MG Oral MOUTH EVERY 6 HOURS 19 Tab NEEDED FOR PAIN MAXIMUM DAILY DOSE OF 4 PER DAY documented as of this encounter (statuses as of 05/27/2019) Active Problems Problem Noted Date Elective replacement indicated for pacemaker 03/11/2019 Mechanical breakdown of cardiac electronic device 02/24/2019 Overview: Added automatically from request for surgery [id number] Spinal stenosis of lumbar region with neurogenic [...] obstructive pulmonary disease) 11/01/2010 Overview: [employer] 2 lpm q 24 hrs. 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 with INR goal of 2.0-3.0 06/08/2008 Overview: Managed by: Talia Mathis Referring Provider: Sienna Indication: afib, chronic Target Range: 2.0-3.0 Duration: Indefinite Additional factors influencing anticoagulation: Additional factors influencing anticoagulation: CHADS2 score of 3 for age > 75, hypertension, diabetes [id number] score of 5 for age > 75, hypertension, diabetes, female gender Allopurinol increases warfarin effect [place] 3 fatty acid increases bleeding risk Omeprazole [...] as of this encounter (statuses as of 05/27/2019) Resolved Problems Problem Noted Date Resolved Date Aftercare following joint replacement 11/03/2011 09/09/2012 Encounter for therapeutic drug monitoring 04/10/2010 11/18/2010 Diabetes mellitus type II 10/20/2007 07/03/2011 CAD (coronary artery disease) 05/24/2010 Overview: 40% LAD cath- 2006 documented as of this encounter (statuses as of 05/27/2019) Immunizations Name Administration Dates Next Due Depo [...] Sign Reading Time Taken Comments Blood Pressure 118/62 05/27/2019 11:03 AM EDT Pulse 74 05/27/2019 11:03 AM EDT Temperature 37 05/27/2019 11:03 AM C (98.6 EDT F) Respiratory Rate - - Oxygen Saturation 93% 05/27/2019 11:03 AM on 2lpm O2 EDT Inhaled Oxygen Concentration - - Weight 111.5 kg (245 lb 12.8 05/27/2019 11:03 AM oz) EDT Height - - Body Mass Index 44.24 05/18/2019 11:32 AM EDT documented in this encounter Patient Instructions Patient InstructionsJanuary Lopez MD - 05/27/2019 11:00 AM EDT1. Take Zaroxolyn if gain more than 3 lb and until back to 245 lb 2. Call with sugar diary in 1 week 3. Follow up in 1 month and as needed documented in this encounter Progress Notes January Lopez MD - 05/27/2019 11:00 AM EDT PATIENT: Emi Forte : 1940 DATE OF SERVICE: 05/27/2019 Patient comes follow up CHF Lost 7 lb since last visit No peripheral edema, SOB at baseline Past Medical History: Diagnosis Date Anemia Dr. Ewing Asthma 10/20/2007 Mild, intermittent Chronic kidney disease, stage 4, severely decreased GFR (HCC) COPD (chronic obstructive pulmonary disease) (HCC) 11/01/2010 Diabetes mellitus (HCC) 10/20/2007 eye - 10/2014 , feet - 10/12 Diverticulitis 10/20/2007 History of DJD (degenerative joint disease) knees GERD (gastroesophageal reflux disease) 10/20/2007 HTN (hypertension) 11/01/2010 Hyperlipidemia Mitral regurgitation 10/20/2007 mild Paroxysmal atrial fibrillation (HCC) 10/20/2007 Peripheral neuropathy 10/20/2007 Secondary to diabetes Seasonal allergies 10/20/2007 Sleep apnea CPAP Outpatient Medications as of 05/27/2019 Medication Sig Dispense Refill Alcohol Swabs ([facility] [...] NOSTRIL ONE TIME A DAY1 Bottle 5 Phxnvrufbvl-Cduuhwcih-Ghsoku (TRELEGY ELLIPTA) 100-62.5-25 MCG/INH Inhalation AEROSOL POWDER,BREATH ACTIVATED Take 1 INHL by inhalation DAILY. 1 Each 5 Glucose Blood (FREESTYLE LITE) In Vitro Strip 1 Each by Topical route TWICE DAILY. E11.9 100 Strip 3 guaifenesin (MUCINEX) 600 MG Oral TABLET SR 12 HR Take 600 mg by mouth TWO TIMES DAILY NEEDED. HYDROcodone-acetaminophen (NORCO) 10-325 MG Oral Tab Take 1 Tab by mouth EVERY SIX HOURS NEEDED (pain). Max Daily Amount: 4 Tabs. 90 Tab 0 Insulin Glargine (LANTUS SOLOSTAR) 100 UNIT/ML Subcutaneous Solution Pen- injector Inject 90-115 Units beneath the skin TWICE DAILY. (Patient taking differently: Inject 90-115 Units beneath the skin TWICE DAILY. 115 units am and 95 units pm) 60 mL 5 Insulin Lispro 100 UNIT/ML [...] mg by mouth DAILY. 30 Tab 5 metolazone (ZAROXOLYN) 2.5 MG Oral Tab Take 1 Tab by mouth DAILY. 30 Tab 0 metoprolol succinate (TOPROL XL) 100 MG Oral TABLET SR 24 HR TAKE 1 TABLET BY MOUTH TWO TIMESDAILY 60 Tab 5 montelukast (SINGULAIR) 10 MG Oral Tab TAKE 1 TABLET BY MOUTH EVERY DAY 30 Tab 5 Olopatadine 0.1 % Ophthalmic Solution Place 2 Drops in both eyes DAILY. 5 mL 3 [place]-3 Fatty Acids (FISH OIL) 1000 MG Oral [...] Tab Take 80 mg by mouth DAILY. Pravastatin Sodium 80 MG Oral Tab TAKE 1 TABLET BY MOUTH EVERY DAY AT 2: 00PM 30 Tab 5 pregabalin (LYRICA) 50 MG Oral Cap Take [...] OF BREATH AND WHEEZING 18 Inhaler 5 warfarin (COUMADIN) 5 MG Oral Tab Take 1-1.5 Tabs by mouth DAILY. As directed which is 7.5mg Mon/Wed/Fri. 5mg remaining days of week 90 Tab 3 No current facility-administered medications on file as of 05/27/2019. BP 118/62 (BP Location: Left arm, Patient Position: Sitting) | Pulse 74 | Temp 98.6 F (37 C) | Wt 245 lb 12.8 oz (111.5 kg) | SpO2 93% Comment: on 2lpm O2 | BMI 44.24 kg/m General appearance: alert, in no distress and chronically ill appearing. Chest: clear to auscultation, no wheezes, rales or rhonchi, symmetric air entry. CVS exam: normal rate, regular rhythm, normal S1, S2, no murmurs, rubs, clicks or gallops. Exam of extremities: no pedal edema noted ICD-9-CM ICD-10-CM 1. Chronic systolic congestive heart failure (HCC) 428.22 I50.22 428.0 Patient Instructions 1. Take Zaroxolyn if gain more than 3 lb and until back to 245 lb 2. Call with sugar diary in 1 week 3. Follow up in 1 month and as needed Author: January Lopez MD 05/27/2019 12:14 documented in this encounter Plan of Treatment Date Type Specialty Care Team Description 06/01/2019 AntiCoag Anticoagulation 06/27/2019 Office Visit Family Practice January Lopez MD [facility] [place] [address] 07/13/2019 Office Visit Cardiology Ta Waddell MD [address] [place] [address] 08/03/2019 Office Visit Endocrinology Sandra Sherman, ART APPRAISER [address] [facility] [address] 08/04/2019 Office Visit Pulmonary Alirio Cabello MD [address] [place] [address] [phone] 08/17/2019 [facility] 12/06/2019 [facility] 04/06/2020 [facility] Health Maintenance Due Date Last Done Comments [...] Problems Progress Blood Pressure Blood Pressure HTN 118/62 No Jessica, < 140/90 (hypertension) (05/27/2019 January, 11:03 AM EDT) Note: Hypertension Care Plan Based [...] Educational Resources: National Heart, Lung, & Blood [place] http://nhlbi.nih.gov/hbp/index.html The DASH Diet Eating Plan http://www.nhlbi.nih.gov/health/health-topics/ topics/dash/ Academy of Nutrition & DIetetics http://eatright.org National Smoking Cessation Site http://smokefree.gov Blood Pressure < Blood Pressure 118/62 (05/27/2019 No January Lopez, 140/90 11:03 AM EDT) Note: This is an individualized treatment (blood pressure) goal for Emi Thibodeaux Forte: Displayed above (on the left) is your goal for blood pressure control. Your most recent blood pressure is also shown above, on the right. You should try to achieve blood pressures that are lower than your goal listed above (on the left). Weight increase vs. 18 CHF 17.8 (05/27/2019 11:03 AM January Chatterjee MD mo min (lbs) < 5 EDT) [...] my blood sugar results (including dextrose sticks). Beth is safe and secure way for you [...] my blood sugar results (including dextrose sticks). Beth is safe and secure way for you [...] 7.0 Diabetes 9.7 (05/03/2019 8:06 No January Lopez, AM EDT) Note: This is an individualized treatment (diabetes control, HgbA1C) goal for Emi Forte: Displayed above is your progress towards your HgbA1C goal. Your goal is shown above (on the left); your most recent HgbA1C is shown on the right. Note that lower numbers are better. Congestive Heart Failure Lifestyle Chronic diastolic heart January Chatterjee, failure Note: Congestive Heart Failure (CHF) Care Plan [...] eating or drinking. record my weight daily. [employer] is safe and secure way for you [...] individualized lifestyle goal for Emi Forte: Please be sure to keep up-to-date on recommended immunizations. For example, this would include a yearly influenza vaccine. Immunization status can be seen by looking at the Health Maintenance sections of your eGuthrie, Plan of Care, and any After Visit Summaries. Consume a lh-vgrev-tqfp diet Lifestyle No January Lopez MD Note: [...] ongoing basis. Check your weight daily Self-management January Chatterjee MD Note: This is an individualized self-management goal for Emi Forte: Please check your weight daily. Refer to the accompanying CHF treatment goal and call your doctor immediately for further instructions on how to respond to unexpected weight gain. documented as of this encounter Implants Implanted Type Area Gospel Worker Device Shelf Model / Identifier Expiration Serial / Lot Date Accent Dual Chamber [id number] - [id number] Left: ST. SIM 02/26/2012 [id number] / Implanted: Qty: 1 on 11/06/2010 at [facility] [id number] / Lead Tendril # 1888t-52 - [id number] Left: ST SIM 07/28/2013 1888T-52 / Implanted: Qty: 1 on 11/06/[address] [facility]/ [place] [id number] / ER Tendril Lead 2087tc/58cm - [id number] Left: ST. SIM 10/28/2013 2088TC/ 58CM / Implanted: Qty: 1 on 11/06/[address] [facility] [id number] / Bone Cement, Double 80gm - [id number] Right: DEPUY [id number] / Implanted: Qty: 1 on 10/20/2011 at [facility] Knee / [id number] Tibial Plate Size 5 Nexgen - [id number] Right: LONA MONCADA 5980-47- 01 / Implanted: Qty: 1 on 10/20/2011 at [facility] [employer] / [id number] Lps-Flex Option Femoral E Rt - [id number] Right: LONA MONCADA 5964-15 -52 / Implanted: Qty: 1 on 10/20/2011 at [facility] [employer] / [id number] Lps-Flex Taper Plugs - [id number] Right: LONA MONCADA / Implanted: Qty: 1 on 10/20/2011 at [facility] [employer] / [id number] Art Surface 12mm Green - [id number] Right: LONA MONCADA / Implanted: Qty: 1 on 10/20/2011 at [facility] [employer] / [id number] Assurity Mri [id number] Generator - [id number] ST. SIM 08/27/2020 [id number] / Implanted: Qty: 1 on 03/11/2019 by Talha Pineda MD at [facility]. [id number] / documented as of this encounter Results Not on filedocumented in this encounter Visit Diagnoses Diagnosis Chronic systolic congestive heart failure (HCC) - Primary Chronic systolic heart failure documented in this encounter Insurance Payer Benefit Plan / Subscriber ID Effective Dates Phone Address Type Group [employer] MED[employer] EXCELLUS xxxxxxxxxxxx Effective for [employer] ADVANTAGE MEDICARE BLUE all dates PPO ([phone]) Guarantor Name Account Type Relation to Date of Phone Billing Address Patient Emi Forte Personal/Family 1940 [address] (Home) [place], [place] [phone] (Work) documented as of this encounter Advance [...] options and patient/surrogate requested and agreed to: DNR/DNI"
--- OUTSIDE RECORDS SUMMARY | 2019-05-27 20:08 | XMS REPORT | Summary of Care ---
:1940 Author Organization [facility] Address [address] [facility] [place] [address] Care Team Providers Name Role Phone January Lopez MD Primary Care Provider Reason for Visit Reason Comments Medicare Well Visit annual , Dr waddell Encounter Details Date Type Department Care Team Description [facility], subsequent (Primary Dx); Practice MD January Mixed hyperlipidemia; [address] Uncontrolled type 2 diabetes mellitus with complication, with long-term current use of insulin (HCC); [place] [address] [place] [address] Chronic systolic congestive heart failure (HCC); [phone] Primary osteoarthritis involving multiple joints Allergies Active Allergy Reactions Severity Noted Date Comments Egg Phospholipids, Egg Lecithin 10/20/2007 Keflex Swelling 10/20/2007 Latex Dermatologic Reaction 08/06/2016 Lovenox Hives 12/16/2011 Shell Fish Swelling 11/07/2008 Dofetilide Other High 12/16/2011 documented as of this encounter (statuses as of 05/10/2019) Medications Medication Sig Dispensed Refills Start Date End Date Status cyanocobalamin (B-12) 500 Take 500 mcg by 0 Active MCG Oral Tab mouth EVERY MORNING. [place]-3 Fatty Acids (FISH Take 1,000 mg 0 [...] Reported on 01/11/2019 3:48 PM polyethylene glycol (MIRALAX) Take 1 PKT by mouth 30 Packet 4 04/27/2018 Active Oral Pack DAILY. ropinirole (REQUIP) 0.25 MG Take 1-2 Tabs by mouth 60 Tab 0 05/17/2018 Active Oral Tab EVERY BEDTIME. Blood Glucose Monitoring USE DIRECTED 1 Each 0 07/14/2018 Active Suppl (FREESTYLE LITE) Does not apply Device Insulin Glargine (LANTUS Inject 90-105 Units 60 Each 5 07/20/2018 Active SOLOSTAR) 100 UNIT/ML beneath the skin TWICE Subcutaneous Solution DAILY. Inject 100 units Pen-injector in the AM and 85 units in the PM Additional information Patient taking differently: 40 Units Subcutaneous BID, Inject 115 units in the AM and 80 units in the PM, Reported on 05/10/2019 11:27 AM Blood Glucose Monitor 1 Device by Does [...] TABLET SR 12 HR TIMES DAILY NEEDED. Onftcnprhfa-Ullkfbgeb-Dlxab Take 1 INHL by inhalation 1 Each [...] Oral Cap TIMES DAILY NEEDED (abdominal cramps). warfarin (COUMADIN) 5 MG Take 1-1.5 Tabs by mouth 90 Tab 3 02/17/2019 Active Oral TabIndications: DAILY. As directed which Chronic atrial fibrillation is 7.5mg Tue/Thurs. 5mg (HCC) remaining days of week Omeprazole 40 MG Oral TAKE 1 CAPSULE [...] 2 Tab, Reported on 05/10/2019 11:24 AM Pravastatin Sodium 80 TAKE 1 TABLET BY 30 Tab 5 04/22/2019 05/10/2019 Discontinued MG Oral Tab MOUTH EVERY DAY AT 2:00PM torsemide (DEMADEX) 10 Take 1 Tab by 150 Tab 1 04/25/2019 05/10/2019 Discontinued MG Oral Tab mouth DIRECTED. 60 mg PO QOD and 40 mg PO QOD documented as of this encounter (statuses as of 05/10/2019) Active Problems Problem Noted Date Elective replacement indicated for pacemaker 03/11/2019 Mechanical breakdown of cardiac electronic device 02/24/2019 Overview: Added automatically from request for surgery [id number] Spinal stenosis of lumbar region with neurogenic [...] obstructive pulmonary disease) 11/01/2010 Overview: [employer] [place]-Oxygen 2 lpm q 24 hrs. Chronic diastolic heart failure 11/01/2010 [facility] current use of anticoagulants with INR goal of 2.0-3.0 06/08/2008 Overview: Managed by: Talia Mathis Referring Provider: Sienna Indication: afib, chronic Target Range: 2.0-3.0 Duration: Indefinite Additional factors influencing anticoagulation: CHADS2 score of 3 for hypertension, diabetes, LV dysfunction [id number] score of 5 for hypertension, diabetes, LV dysfunction, age > 65, female gender Allopurinol increases warfarin effect Amoxicillin increases warfarin effect Aspirin increases bleeding risk [place] 3 fatty acid increases bleeding risk Spironolactone decreases warfarin effect Updated Referral: 12/2011, 01/2013, 02/2014, 05/2015, 07/14/16, 10/2017 Updated ACS Orders: 03/23/14, 05/2015, 08/15/16, 11/20/17 Mitral regurgitation 10/20/2007 Overview: mild Seasonal allergies [...] as of this encounter (statuses as of 05/10/2019) Resolved Problems Problem Noted Date Resolved Date Aftercare following joint replacement 11/03/2011 09/09/2012 Encounter for therapeutic drug monitoring 04/10/2010 11/18/2010 Diabetes mellitus type II 10/20/2007 07/03/2011 CAD (coronary artery disease) 05/24/2010 Overview: 40% LAD cath- 2006 documented as of this encounter (statuses as of 05/10/2019) Immunizations Name Administration Dates Next Due Depo [...] Sign Reading Time Taken Comments Blood Pressure 122/60 05/10/2019 11:05 AM EDT Pulse 71 05/10/2019 11:05 AM EDT Temperature 37.1 05/10/2019 11:05 AM C (98.7 EDT F) Respiratory Rate - - Oxygen Saturation 92% 05/10/2019 11:05 AM EDT Inhaled Oxygen Concentration - - Weight 112.2 kg (247 lb 4.8 oz) 05/10/2019 11:05 AM EDT Height 158.8 cm (5' 2.5") 05/10/2019 11:05 AM EDT Body Mass Index 44.51 05/10/2019 11:05 AM EDT documented in this encounter Patient Instructions Patient InstructionsJanuary Lopez MD - 05/10/2019 11:00 AM EDT1. Take Torsemide 60 mg Once a day ( 3 tablets of 20 mg) until loose 5 lb. Than restart 40 mg every other days, 60 mg every other day 2. Take Lantus 115 Units in am and 90 units pm 3. Follow up in 1 week with sugar diary 4. Schedule appointment with Dr. Sanchezo documented in this encounter Progress Notes January Lopez MD - 05/10/2019 11:00 AM EDT PATIENT: Emi Forte : 1940 DATE OF SERVICE: 05/10/2019 OBJECTIVE: Subjective Emi Forte is a 78-y.o. female who presents for a Medicare Wellness Visit. Emi Forte States that her current providers and suppliers regularly involved in providing medicalcare are Dr. Waddell, Dr. Mariee, Moni Tabares, Dr. Joshua. Past Medical History: Diagnosis Date Anemia Dr. [...] diabetes Seasonal allergies 10/20/2007 Sleep apnea CPAP Family History Problem Relation Age of Onset Diabetes Mother Arthritis-Rheumatoid Mother Diabetes Father Heart Disease Father Diabetes Brother Diabetes Brother Heart Disease Brother 40 [place] Heart Disease Brother 31 [place] Heart Disease Sister 50 CABG, Now has PPM Hypertension Sister Anesth Problems No family history Arthritis No family history Cancer No family history Clotting Disorder No family history Kidney Disease No family history Thyroid Disease No family history Current Outpatient Medications Medication Sig Alcohol Swabs ([facility] ALCOHOL PREP SWABS) 70 % Does not apply Pads USE TWO TIMES A DAY allopurinol (ZYLOPRIM) 100 MG Oral Tab Take 1 Tab by mouth DAILY. bisacodyl (DULCOLAX) 5 MG Oral Tab EC Take 1 Tab by mouth TWICE DAILY. ( Patient taking differently: Take 15 mg by mouth DAILY.) Blood Glucose Monitor Software Does not apply Device 1 Device by Does not apply route DIRECTED. Insurance preferred. E11.9 Blood Glucose Monitoring Suppl (FREESTYLE LITE) Does not apply Device USE DIRECTED Cholecalciferol (VITAMIN D3) 1000 units Oral Cap Take 2,000 mg by mouth DAILY. cyanocobalamin (B-12) 500 MCG Oral Tab Take 500 mcg by mouth EVERY MORNING. dicyclomine (BENTYL) 10 MG Oral Cap Take 1 Cap by mouth FOUR TIMES DAILY NEEDED (abdominalcramps). fluticasone (FLONASE) 50 MCG/ACT Nasal Suspension USE 2 SPRAYS IN EACH NOSTRIL ONE TIME A DAY Ygftncjzmjf-Vxszhqpmb-Kqxqhv (TRELEGY ELLIPTA) 100-62.5-25 MCG/INH Inhalation AEROSOL POWDER,BREATH ACTIVATED Take 1 INHL by inhalation DAILY. Glucose Blood (FREESTYLE LITE) In Vitro Strip 1 Each by Topical route TWICE DAILY. E11.9 guaifenesin (MUCINEX) 600 MG Oral TABLET SR 12 HR Take 600 mg by mouth TWO TIMES DAILY NEEDED. HYDROcodone-acetaminophen (NORCO) 5-325 MG Oral Tab TAKE ONE TABLET BY MOUTH EVERY 6 HOURS ASNEEDED FOR PAIN MAXIMUM DAILY DOSE OF 4 PER DAY Insulin Glargine (LANTUS SOLOSTAR) 100 UNIT/ML Subcutaneous Solution Pen- injector Inject 90-105 Units beneath the skin TWICE DAILY. Inject 100 units in the AM and 85 units in the PM (Patient taking differently: Inject 40 Units beneath the skin TWICE DAILY. Inject 105 units in the AM and 80 units in the PM) Insulin Lispro 100 UNIT/ML Subcutaneous Solution Pen-injector INJECT 15 UNITS SUBCUTANEOUSLY (UNDER THE SKIN) THREE TIMES DAILY BEFORE MEALS Insulin Pen Needle (SURE COMFORT PEN NEEDLES) 30G X 8 MM Does not apply Misc Inject 1 Each beneath the skin FIVE TIMES DAILY. Lancets Does not apply Misc by Does not apply route TWICE DAILY. E11.9 - Freestyle linaGLIPtin (TRADJENTA) 5 MG Oral Tab Take 5 mg by mouth DAILY. metoprolol succinate (TOPROL XL) 100 MG Oral TABLET SR 24 HR Take 1 Tab by mouth TWICE DAILY. montelukast (SINGULAIR) 10 MG Oral Tab TAKE 1 TABLET BY MOUTH EVERY DAY Olopatadine 0.1 % Ophthalmic Solution Place 2 Drops in both eyes DAILY. [place]-3 Fatty Acids (FISH OIL) 1000 MG Oral Cap Take 1,000 mg by mouth TWICE DAILY. Omeprazole 40 MG Oral CAPSULE DELAYED RELEASE TAKE 1 CAPSULE BY MOUTH TWO TIMES DAILY polyethylene glycol (MIRALAX) Oral Pack Take 1 PKT by mouth DAILY. potassium chloride (K-DUR) 20 MEQ Oral Tab CR TAKE 1 TABLET BY MOUTH TWO TIMES DAILY Pravastatin Sodium 80 MG Oral Tab Take 80 mg by mouth DAILY. Pravastatin Sodium 80 MG Oral Tab TAKE 1 TABLET BY MOUTH EVERY DAY AT 2: 00PM pregabalin (LYRICA) 50 MG Oral Cap Take 1 Cap by mouth DIRECTED. Max Daily Amount: 5 Caps.2 cap am and 3 cap pm ropinirole (REQUIP) 0.25 MG Oral Tab Take 1-2 Tabs by mouth EVERY BEDTIME. Spironolactone 50 MG Oral Tab Take 1 Tab by mouth DAILY 0700 on Empty Stomach. torsemide (DEMADEX) 10 MG Oral Tab Take 1 Tab by mouth DIRECTED. 60 mg PO QOD and 40 mg POQOD torsemide (DEMADEX) 20 MG Oral Tab TAKE 3 TABLETS BY MOUTH EVERY OTHER DAY ALTERNATING WITH 2TABLETS BY MOUTH EVERY OTHER DAY VENTOLIN HFA 108 (90 Base) MCG/ACT Inhalation Aero Soln INHALE 2 PUFFS BY MOUTH EVERY 4 HOURSAS NEEDED FOR SHORTNESS OF BREATH AND WHEEZING warfarin (COUMADIN) 5 MG Oral Tab Take 1-1.5 Tabs by mouth DAILY. As directed which is 7.5mg Tue/Thurs. 5mg remaining days of week No current facility-administered medications for this visit. Allergies Allergen Reactions Tikosyn [Dofetilide] Other Eggs [Egg Phospholipids, Egg Lecithin] Keflex Swelling Latex Dermatologic Reaction Lovenox Hives Shell Fish Swelling Social History Socioeconomic History Marital status: Spouse name: Not on file Number of children: Not on file Years of education: Not on file Highest education level: Not on file Occupational History Not on file Social Needs Financial resource strain: Not on file Food insecurity: Worry: Not on file Inability: Not on file Transportation needs: Medical: Not on file Non-medical: Not on file Tobacco Use Smoking status: Never Smoker Smokeless tobacco: Never Used Substance and Sexual Activity Alcohol use: No Alcohol/week: 0.0 standard drinks Drug use: No Types: Prescription Sexual activity: Not Currently Lifestyle Physical activity: Days per week: Not on file Minutes per session: Not on file Stress: Not on file Relationships Social connections: Talks on phone: Not on file Gets together: Not on file Attends mandaen service: Not on file Active member of club or organization: Not on file Attends meetings of clubs or organizations: Not on file Relationship status: Not on file Intimate partner violence: Fear of current or ex partner: Not on file Emotionally abused: Not on file Physically abused: Not on file Forced sexual activity: Not on file Other Topics Concern Not on file Social History Narrative Patient is currently disabled Patient has no known exposure to Tuberculosis, Asbestos or Silica. BP 122/60 (BP Location: Left arm, Patient Position: Sitting) | Pulse 71 | Temp 98.7 F (37.1 C) | Ht 5' 2.5" (1.588 m) | Wt 247 lb 4.8 oz (112.2 kg) | SpO2 92% | BMI 44.51 kg/m Snellen Eye Exam Results: 20/30. Health Risk Assessment What is your age? 78-y.o. Are you male or female? female What is your Race? During the past four weeks, how would you rate your health? Poor Do you require help to perform your personal needs such as eating, bathing, dressing, or getting around the house? Yes, with bathing. Helped by her daughter Can you go shopping for groceries or clothes without someone's help? no Can you do your housework without help? no Can you prepare your own meals? yes Do you have trouble taking medications as prescribed? no Can you handle your own money and finances without help? Yes with her family help During the past four weeks, was someone available to help you if you needed and wanted help (for example, someone to talk to, help with daily chores, etc.)? Yes , as much as I wanted How Confident are you that you can control and manage most of your health problems? Very Confident During the past four weeks, what was the hardest physical activity you could do for at least 2 minutes? Light (like slow walking or grocery shopping) Do you exercise for about 20 minutes 3 or more days a week? no Do any of these things cause you stress? None During the past four weeks, how much bodily pain have you had? Severe pain in the back and feet In general, are you satisfied with the quality of your life? yes On a typical day, how many servings of fruits and vegetables do you eat? 1-2- How many servings of high fat foods do you eat per day (example, fried chicken, potato chips, foods made with milk, cream cheese or mayonnaise)? 0-1 Do you receive assistance with meals such as meals on wheels or help from friends, family, or neighbors? no Do you have teeth or denture problems? no Date of last dental cleaning/check up: 3-4 years ago How often do you use your seat belt? Always During the past four weeks, how many drinks of beer, wine, or other alcoholic beverages have you had? None at all Date of last eye exam: Last year Name of client technical professional: Dr. Joshua Functional Ability, Level of Safety Are you deaf or do you have serious difficulty hearing?: No Are you blind or do you have serious difficulty seeing, even when wearing glasses?: No Do you have serious difficulty concentrating, remembering, or making decisions? : Yes Do you have serious difficulty walking or climbing stairs? (5 years old or older ): Yes Do you have difficulty dressing or bathing? (5 years old or older): Yes Do you have difficulty doing errands alone such as visiting a doctors office or shopping?: Yes Continues to complains of LBP knee pains increasing with movement Takes Goodells 5/325 2 tablets 3 times a day as needed for pain Diabetic Review of Systems - medication compliance: compliant all of the time, diabetic diet compliance: noncompliant some of the time, home glucose monitoring : is performed regularly, fasting values range 140-200, non fasting values range 200's, occasionally 300's. Also gained 5 lb since last visit complains of increased exertional SOB Admits eating saltines HGA1C - high, CMP - high sugar, FLP - high TG, low HDL Component Latest Ref Rng & Units 05/03/2019 05/03/2019 05/03/2019 05/03/2019 8:06 AM 8:06 AM 8:06 AM 8:06 AM WBC COUNT 3.98 - 10.04 K/uL 10.28 (H) RBC 3.93 - 5.22 M/UL 4.58 Hemoglobin 11.2 - 15.7 g/dL 12.0 Hematocrit 34.1 - 44.9 % 40.3 MCV 79.4 - 94.8 FL 88.0 MCH 25.6 - 32.2 PG 26.2 MCHC 32.2 - 35.5 g/dL 29.8 (L) Platelet Count 182 - 369 K/uL 156 (L) MPV 9.4 - 12.3 FL 11.8 RDW 11.7 - 14.4 % 19.2 (H) NEUTROPHILS 34.0 - 71.1 % 54.4 Lymphocyte % 19.3 - 51.7 % 22.6 MONOCYTES 4.7 - 12.5 % 19.7 (H) Eosinophils 0.7 - 5.8 % 1.8 Basophil % 0.1 - 1.2 % 0.8 nRBC % 0.0 - 0.2 % 0.6 (H) Neutrophil # 1.56 - 6.13 K/UL 5.59 Lymphocyte # 1.18 - 3.74 K/UL 2.32 Monocyte # 0.24 - 0.86 K/UL 2.03 (H) Eosinophil # 0.04 - 0.36 K/UL 0.19 Basophil # 0.01 - 0.08 K/UL 0.08 Immature Gran % 0.0 - 0.4 % 0.7 (H) Immature Gran # 0.00 - 0.03 K/uL 0.07 (H) NRBC # 0.00 - 0.12 K/uL 0.06 Sodium 134 - 145 mmol/L 138 Potassium 3.5 - 5.1 mmol/L 4.7 Chloride 98 - 107 mmol/L 103 CO2 22 - 30 mmol/L 28 Calcium 8.3 - 10.1 mg/dl 9.4 Albumin 3.5 - 5.0 g/dl 4.2 BUN 7 - 17 mg/dl 41 (H) Creatinine 0.7 - 1.2 mg/dl 2.1 (H) Glucose (Lab) 70 - 99 mg/dl 219 (H) Protein,Total 6.3 - 8.2 g/dl 8.1 Total Bilirubin 0.0 - 1.1 MG/DL 0.4 AST 15 - 46 U/L 27 ALT 9 - 52 U/L 15 ALKALINE PHOSPHATASE 40 - 150 U/L 88 eGFR See Interpretation Below ml/min/1.73ml Sq 28 BUN/Creatinine Ratio 6 - 22 RATIO 20 Anion Gap 3 - 11 mmol/L 7 A/G Ratio 0.8 - 2.0 ratio 1.1 Cholestrol <200 mg/dl 140 HDL >50 mg/dl 25 (L) Triglycerides <150 mg/dl 486 (H) LDL Cholesterol <100 MG/DL Cholesterol / HDL Ratio RATIO 5.6 LDL / HDL Ratio Non-HDL Cholesterol 0 - 130 MG/DL 115 Glycohemoglobin - POCT <=5.6 % 9.7 (H) I have recommended the following steps for improving diabetic care and outcome to her: diabetic dietdiscussed , low sodium diet, weight control discussed, annual eye examinations at Ophthalmology discussed and glycohemoglobin and other lab monitoring discussed. A followup visit will be scheduled in the near future to review and reinforce the importance of careful diabetic control to improve senior living outcomes. ICD-9-CM ICD-10-CM 1. Medicare annual wellness visit, subsequent V70.0 Z00.00 EPSDT VISUAL SCREEN 2. Mixed hyperlipidemia On maximum dose of Pravachol Not able to tolerate stronger statins 272.2 E78.2 3. Uncontrolled type 2 diabetes mellitus with complication, with long-term current use of insulin (HCC) 250.82 E11.8 Consider endocrinology consult V58.67 E11.65 Z79.4 4. Chronic systolic congestive heart failure (HCC) 428.22 I50.22 Worse due to the diet 428.0 5. Primary osteoarthritis involving multiple joints Consider to increase Goodells to 10/325 tablets with next Rx 715.09 M15.0 Patient Instructions 1. Take Torsemide 60 mg Once a day ( 3 tablets of 20 mg) until loose 5 lb. Than restart 40 mg every other days, 60 mg every other day 2. Take Lantus 115 Units in am and 90 units pm 3. Follow up in 1 week with sugar diary 4. Schedule appointment with Dr. Joshua Author: January Lopez MD 05/10/2019 11:16 documented in this encounter Plan of Treatment Date Type Specialty Care Team Description 05/18/2019 AntiCoag Anticoagulation 05/18/2019 Office Visit Family Practice January Lopez MD [facility] [place] [address] 07/13/2019 Office Visit Cardiology Ta Waddell MD [address] [place] [address] 08/03/2019 [facility]in[facility] [address] [facility] [address] 08/04/2019 Office Visit Pulmonary Alirio Cabello MD [address] [place] [address] 08/17/2019 [facility] 12/06/2019 [facility] 04/06/2020 [facility] Name Type Priority Associated Diagnoses Order Schedule EPSDT VISUAL SCREEN Procedures Routine Medicare annual wellness Ordered: visit, subsequent Health Maintenance Due Date Last Done Comments ZOSTER IMMUNIZATION SERIES 07/03/2015 05/08/2015 (2 of 3) Diabetic Eye Exam 07/23/2017 07/23/2016, 10/31/2014, 05/11/2013 MEDICARE ANNUAL WELLNESS 03/15/2019 03/15/2018, 07/16/2016, VISIT 07/16/2016, Additional history exists HEMOGLOBIN A1C 08/03/2019 05/03/2019, 02/01/2019, 09/30/2018, Additional history exists DEPRESSION SCREENING 12/25/2019 12/24/2018 FALL RISK ASSESSMENT 12/25/2019 12/24/2018, 12/24/2018 FOOT EXAM 02/18/2020 02/17/2019, 02/17/2019, 02/17/2019, Additional history exists OSTEOPOROSIS SCREENING 10/08/2021 10/08/2011 [...] Problems Progress Blood Pressure Blood Pressure HTN 122/60 No Jessica, < 140/90 (hypertension) (05/10/2019 January, 11:05 AM EDT) Note: Hypertension Care Plan Based [...] Educational Resources: National Heart, Lung, & Blood Boyds http://nhlbi.nih.gov/hbp/index.html The DASH Diet Eating Plan http://www.nhlbi.nih.gov/health/health-topics/ topics/dash/ Academy of Nutrition & DIetetics http://eatright.org National Smoking Cessation Site http://smokefree.gov Blood Pressure < Blood Pressure 122/60 (05/10/2019 No January Lopez, 140/90 11:05 AM EDT) Note: This is an individualized treatment (blood pressure) goal for Emi Thibodeaux Forte: Displayed above (on the left) is your goal for blood pressure control. Your most recent blood pressure is also shown above, on the right. You should try to achieve blood pressures that are lower than your goal listed above (on the left). Weight increase vs. 18 CHF 19.3 (05/10/2019 11:05 AM January Chatterjee MD mo min (lbs) [...] my blood sugar results (including dextrose sticks). [facility] is safe and secure way for [...] A1c < 7.0 Diabetes 9.7 (05/03/2019 8:06 January Chatterjee AM EDT) Note: This is an individualized [...] eating or drinking. record my weight daily. [facility] is safe and secure way for you [...] and any After Visit Summaries. Consume a [id number] diet Lifestyle No January Lopez MD Note: [...] of this encounter Implants Implanted Type Area Student Support Advisor Device Shelf Model / Identifier Expiration Serial / Lot Date Accent Dual Chamber [id number] - [id number] Left: [employer] SIM 02/26/2012 [id number] / Implanted: Qty: 1 on 11/06/[address] [facility] [employer] [id number] / Lead Tendril # [id number] - [id number] Left: ST SIM 07/28/2013 [id number] / Implanted: Qty: 1 on 11/06/[address] [facility] [employer]/ [employer] [id number] / ER Tendril Lead 8tc/58cm - [id number] Left: ST. SIM 10/28/2013 [id number]/ 58CM / Implanted: Qty: 1 on 11/06/[address] [facility] [employer] [id number] / Bone Cement, Double 80gm - [id number] Right: DEPUY [id number] / Implanted: Qty: 1 on 10/20/[address] [facility] Knee / [id number] Tibial Plate Size 5 Nexgen - [id number] Right: LONA MONCADA 5980-47- 01 / Implanted: Qty: 1 on 10/20/[address] [facility] [employer] / [id number] Lps-Flex Option Femoral E Rt - [id number] Right: LONA MONCADA 5964-15 [id number] / Implanted: Qty: 1 on 10/20/[address] [facility] [employer] / [id number] Lps-Flex Taper Plugs - [id number] Right: LONA MONCADA / Implanted: Qty: 1 on 10/20/[address] [facility] [employer] / [id number] Art Surface 12mm Green - [id number] Right: LONA MONCADA / Implanted: Qty: 1 on 10/20/[address] [facility] [employer] / [id number] Assurity Mri [id number] Generator - [id number] ST. SIM 08/27/2020 [id number] / Implanted: Qty: 1 on 03/11/2019 by Talha Pineda MD at [facility] MEDICAL, [facility]. [id number] / documented as of this encounter Results Not on filedocumented in this encounter Visit Diagnoses Diagnosis Medicare annual wellness visit, subsequent - Primary Routine [facility] Mixed hyperlipidemia Uncontrolled type 2 diabetes mellitus with complication, with long-term current use of insulin (HCC) Chronic systolic congestive heart failure (HCC) Chronic systolic heart failure Primary osteoarthritis involving multiple joints documented in this encounter Insurance Payer Benefit Plan / Subscriber ID Effective Dates Phone Address Type Group [facility] x[facility]xxx Effective for [employer] ADVANTAGE MEDICARE BLUE all dates PPO ([phone]) Guarantor Name Account Type Relation to Date of Phone Billing Address Patient Emi Forte Personal/Family 1940 [address] (Home) [place], [place] [phone] [id number] (Work) documented as of this encounter Advance [...]
[2019-05-27] MEDS ORDERED: NS 0.9% 1000 ML** 1,000 ML IV ONE (20:15)
--- NOTE | 2019-05-27 20:16 | ED ---
Headache - HPI Summary HPI Summary: Provider in room assessing patient at 2009. Stephanie gandhi called at 2014. The patient is a 78 y/o F arriving by EMS to [facility] accompanied by family with a chief complaint of gradual onset headache with worsening since last night. She reports that she had a visit with her PCP today due to the continuation of the JENSEN, and her evaluation was normal at the time. She then developed visual changes with monocular diplopia and occasional triplopia on the left tonight suddenly starting around 1700 tonight that is worse with moving from sitting to erect position. She additionally c/o left arm weakness, and family notes difficulty ambulating. She denies any CP or SOB. 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 She states that she usually does not suffer from severe headaches or migraines. PMHx: Type II DM ( EMS reports blood glucose of 373 en route), anemia, angina, defibrillator, Afib , CHF, CAD, HLD, HTN, AZ, asthma, COPD, pleural effusion, pulmonary edema, diverticulitis, GERD, chronic renal failure, peripheral neuropathy, anxiety, depression. FHx: cardiac disease. Nonsmoker, no EtOH, no substance use. Medications include Coumadin, Metoprolol, Lantus, Humalog. Allergies reviewed. Patient to [place] at 2021. - History Of Current Complaint Stated Complaint: HEADACHE PER EMS Time Seen by Provider: 05/27/19 20:03 Hx Obtained From: Patient, Family/Administrative Liaison Last Known Well Date: 05/27/2019 at 1700 Onset/Duration: Sudden Onset - visual changes, Gradual Onset - of headaches, Still Present Initially Headache Was: Mild Currently Pain Is: Moderate Timing: Hours Location of Headache: Diffuse Aggravating Factor: Nothing Allevating Factors: Nothing Associated Signs And Symptoms: Visual Changes - monocular diplopia and triplopia on the left, Other (Noted In Comments) - Positive: weakness in LLE, difficulty ambulating. Negative: CP, SOB - Allergies/Home Medications Allergies/Adverse Reactions: Allergies Allergy/AdvReac Type Severity Reaction Status Date / Time latex Allergy Swelling Verified 02/09/19 18:59 shellfish derived Allergy Swelling Verified 02/09/19 18:59 Of Face,Lips,& Throat cephalexin [From Keflex] AdvReac Mild Facial Verified 02/09/19 18:59 Redness/Flushing dofetilide [From Tikosyn] AdvReac Palpitation Verified 02/09/19 18:59 s enoxaparin [From Lovenox] AdvReac "blood too Verified 02/09/19 18:59 thin" PMH/Surg Hx/FS Hx/Imm Hx Endocrine/Hematology History: Reports: Hx Anticoagulant Therapy, Hx Blood Transfusions, Hx Diabetes, Hx Anemia, Other Endocrine/Hematological Disorders Cardiovascular History: Reports: Hx Angina, Hx Atrial Fibrillation, Hx Auto Implanted Cardiovert Defib, Hx Cardiomegaly, Hx Congestive Heart Failure, Hx Coronary Artery Disease, Hx Hypercholesterolemia, Hx Hypertension, Hx Myocardial Infarction, Hx Pacemaker/ICD, Hx Syncope Denies: Hx Valvular Heart Disease Respiratory History: Reports: Hx Asthma, Hx Chronic Obstructive Pulmonary Disease (COPD) - pt reports 2L O2 via NC prn at home, Hx Pleural Effusion, Hx Pulmonary Edema, Hx Sleep Apnea, Other Respiratory Problems/Disorders - bronchitis, 2nd hand smoke exposure, pulmonary fibrosis GI History: Reports: Hx Diverticulosis, Hx Gall Bladder Disease, Hx Gastroesophageal Reflux Disease, Hx Irritable Bowel, Hx Obstructive Bowel, Other GI Disorders - Enlarged liver, polyps History: Reports: Hx Chronic Renal Failure, Hx Kidney Stones Denies: Hx Renal Disease Musculoskeletal History: Reports: Hx Arthritis, Hx Back Problems, Hx Gout Denies: Hx Osteoporosis Sensory History: Reports: Hx Cataracts, Hx Contacts or Glasses, Hx Vision Problem - blurry, Other Sensory Impairments - Neuropathy Denies: Hx Deafness, Hx Hearing Aid Opthamlomology History: Reports: Hx Cataracts, Hx Contacts or Glasses, Hx Vision Problem - blurry, Other Sensory Impairments - Neuropathy Neurological History: Reports: Hx Peripheral Neuropathy Denies: Hx Seizures, Hx Transient Ischemic Attacks (TIA) Psychiatric History: Reports: Hx Anxiety, Hx Depression - Surgical History Surgery Procedure, Year, and Place: Cholecystectomy 29 years ago. Appy 29 years ago. HYSTERECTOMY 29 years ago. Pacemaker placement 2009 Hx Anesthesia Reactions: No - Immunization History Date of Tetanus Vaccine: Unk Date of Influenza Vaccine: Fall 2014 Infectious Disease History: Denies: Hx Hepatitis, Hx of Known/Suspected MRSA, Hx Shingles, Hx Tuberculosis, Traveled Outside the [place] in Last 30 Days - Family History Known Family History: Positive: Cardiac Disease - Brother with AZ at age 34 - Social History Alcohol Use: None Hx Substance Use: Yes Substance Use Type: Reports: None Substance Use Comment - Amount & Last Used: tramadol; oxycodone Hx Tobacco Use: No Smoking Status (MU): Never Smoked Tobacco Have You Smoked in the Last Year: No Review of Systems Positive: Diplopia - and triplopia, monocular in left eye Negative: Chest Pain Negative: Shortness Of Breath Neurological: Other - motor changes with difficulty ambulating Positive: Headache, Weakness - in the left arm All Other Systems Reviewed And Are Negative: Yes Physical Exam - Summary Physical Exam Summary: Appearance: Well-appearing, Well-nourished, lying in bed comfortably Skin: Warm, dry, no obvious rash Eyes: sclera anicteric, no conjunctival pallor ENT: mucous membranes moist, pharynx appears normal Neck: Supple, nontender Respiratory: Clear to auscultation, no signs of respiratory distress Cardiovascular: Normal S1, S2. No murmurs. Normal distal pulses in tibial and radial bilaterally. Abdomen: Soft, nontender, normal active bowel sounds present Musculoskeletal: Normal, Strength/ROM Intact, Motor function in all 4 extremities is normal and symmetric. There is no rigidity or tremor noted. Neurological: A&Ox3, awake and alert, Level of consciousness nml. The patient is alert and oriented. Cranial nerves reveal loss of adduction in the right eye with horizontal diplopia in gaze, no vertical diplopia. Pupils are 1-2mm and symmetric. There are no gross sensory abnormalities to light touch. The left arm has slight drift, left leg has drift and hits the bed. Gait is normal. GCS: 15. Psychiatric: affect is normal, does not appear anxious or depressed Triage Information Reviewed: Yes Vital Signs Reviewed: Yes - [place] Coma Scale Best Eye Response: 4 - Spontaneous Best Motor Response: 6 - Obeys Commands Best Verbal Response: 5 - Oriented Coma Scale Total: 15 Diagnostics - Laboratory Result Diagrams: 05/27/19 20:37 05/27/19 20:37 Lab Statement: Any lab studies that have been ordered have been reviewed, and results considered in the medical decision making process. - Radiology CXR Radiology Interpretation Completed By: ED Physician, Radiologist Summary of Radiographic Findings: No acute process. ED physician has interpreted this report. Pending official read. - CT Brain CT CT Interpretation Completed By: Radiologist Summary of CT Findings: Impression: 1. There has been little change from 2018. No acute interval intracranial process is identified. 2. Minimal right frontal and ethmoid sinus disease. 3. [place] Stroke Program Early CT Score ( ASPECTS) = 10/10. ED physician has reviewed this imaging report. - EKG 2028 Cardiac Rate: Other Rate - 81 bpm Summary of EKG Findings: Paced rhythm at 81 bpm. No STEMI. National Institutes Of Health - NIH Scale Level of Consciousness: Alert/Keenly Responsive Ask Patient the Month and His/Her Age: Both Correct Ask Pt to Open/Close Eyes and Animation Artist/Release Non-Paretic Hand: Both Correctly Best Gaze (Only Horizontal Eye Movement): Partial Gaze Palsy Visual Field Testing: No Visual Loss Facial Paresis-Pt to Smile & Close Eyes or Grimace Symmetry: Normal/Symmetrical Motor Function - Right Arm: No Drift-Holds 10 Seconds Motor Function - Left Arm: Drifts LT 10 seconds Motor Function - Right Leg: No Drift-Holds 10 Seconds Motor Function - Left Leg: Effort Against Reserve Limb Ataxia-Must be out of Proportion to Weakness Present: Absent Sensory (Use Pinprick to Test Arms/Legs/Trunk/Face): Normal Best Language (Describe Picture, Name Items): No Aphasia Dysarthria (Read Several Words): Normal Extinction and Inattention: No Abnormality Total Score: 4 Re-Evaluation - Re-Evaluation First Eval Re-Evaluation Time: 20:43 Comment: Telestroke in progress with Dr. Temple, neurology at [facility], for further assessment of the patient. We additionally discussed negative Brain CT results. Headache Course/Dx - Course Course Of Treatment: Patient is a 78 y/o F arriving by ambulance accompanied by family with cc of gradual worsening of diffuse headache onset yesterday with sudden onset visual changes of monocular diplopia and triplopia worse with sitting to standing positional change at 1900 today. The family notes left arm weakness and difficulty ambulating. Hx of DM, Afib (Coumadin), CHF, CAD, AZ, HTN (Metoprolol). Upon physical exam, the patient is awake and alert answering questions and following commands appropriately, speech is clear and fluent, there is a loss of adduction in the right eye with horizontal diplopia with gaze without vertical diplopia, pupils are 1-2mm and symmetric, there is slight drift in the left arm and the left leg has drift and hits the bed, and there are no gross sensory abnormalities. Following obtaining a history and evaluating the patient, Nikolai called at 2014. Patient is likely not TPA considered for Coumadin use. GCS: 15. NIH: 4 (see scale). Telestroke consult process initiated at 2017. [facility] nurse called at [address] to [address] Live Temple, [facility] Neurology, consulted at 2031, and he will continue with Telestroke to assess the patient. Radiology reports negative CT results at 2040. Brain CT Impression reveals little change from November 12, 2018, scan without acute intracranial process identified and minimal right frontal and ethmoid sinus disease, ASPECTS = 10/10. At 2042, Telestroke consult with Dr. Temple is in process. He recommends against TPA consideration as the patient's symptoms are not disabling and are improving spontaneously. Blood work reveals WBCs of 11.7, RDW of 20, plt count of 142, absolute monos of 2.3, INR of 1.22, sodium of 133, chloride of 95, BUN of 51, creatinine of 2.62, and glucose of 327, without any other significant abnormalities. UA reveals 3+ glucose but is otherwise normal and negative for infection. In the ED course, the patient was administered fluids and Activase. EKG at 2028 reveals paced rhythm at 81 bpm. Chest xray reveals no acute process, per my interpretation. I spoke with Dr. Hogan at 2112, and she accepts the patient for admission to hospitalist services. Patient is diagnosed with stroke. She understands and agrees with plan for admission. - Diagnoses Provider Diagnoses: Stroke - Physician Notifications Discussed Care Of Patient With: Live Temple - neurology at [facility] Time Discussed With Above Provider: 20:32 Instructed by Provider To: Other - Telestroke consult process initiated with [facility] at 2017, by nursing staff, with discussion of the patient's history and symtom complex with [facility] staff at 2019. At 2031, I spoke with Dr. Temple, who agrees to assess the patient via Telestroke consult. He recommends no TPA consideration because the patient's symptoms are not disabling and are improving. Dr. Hogan, hosptialist, accepts the patient for admission. - Critical Care Time Critical Care Time: 30-74 min - 40 minutes Discharge ED - Sign-Out/Discharge Documenting (check all that apply): Patient Departure - Patient accepted for admission by Dr. Hogan. Patient Received Moderate/Deep Sedation with Procedure: No - Discharge Plan Condition: Stable Disposition: ADMITTED TO [facility] - Billing Disposition and Condition Condition: STABLE Disposition: Admitted to [facility] - Attestation Statements Document Initiated by Brittni: Yes Documenting Scribe: Amanda Campos Provider For Whom Brittni is Documenting (Include Credential): Dr. Kenneth Mccall MD Scribe Attestation: Amanda Norwood scribed for Dr. Kenneth Mccall MD on 05/28/19 at 0531. Scribe Documentation Reviewed: Yes Provider Attestation: The documentation as recorded by the Amanda irvin accurately reflects the service I personally performed and the decisions made by me, Dr. Kenneth Mccall MD Status of Scribe Document: Viewed
[2019-05-27 20:34] LABS: Urine Appearance Clear; Urine Bilirubin Negative (Negative); Urine Blood Negative (Negative); Urine Color Straw; Urine Glucose 3+(>=500 mg/dL) (Negative); Urine Ketones Negative (Negative); Urine Nitrite Negative (Negative); Urine Protein Negative (Negative); Urine Specific Gravity 1.007 (1.010-1.030); Urine Urobilinogen Negative (Negative)
[2019-05-27 20:43] LABS: Hematocrit 38 % (35-47); Hemoglobin 12.1 g/dL (12.0-16.0); Mean Corpuscular HGB Conc 32 g/dL (31-36); Mean Corpuscular Hemoglobin 27 pg (27-31); Mean Corpuscular Volume 83 fL (80-97); Mean Platelet Volume 9.1 fL (7.4-10.4); Platelet Count 142 10^3/uL (150-450); Red Blood Count 4.57 10^6 /uL (3.70-4.87); Red Cell Distribution Width 20 % (10-15); White Blood Count 11.7 10^3/uL (3.5-10.8)
[2019-05-27 20:44] LABS: ABS Basophils 0.2 10^3/ul (0-0.2); ABS Eosinophils 0.2 10^3/ul (0-0.6); ABS Monocytes 2.3 10^3/ul (0-0.8); ABS Neutrophils 6.1 10^3/ul (1.5-7.7); Eosinophil % 1.7 %; Lymphocyte % 25.5 %; Nucleated Red Blood Cells % 0.3
[2019-05-27 20:51] LABS: Activated Partial Thrombo Time 34.6 seconds (26.0-38.0); INR 1.22 (0.82-1.09)
[2019-05-27] MEDS ORDERED: Alteplase* 100 MG VIAL ONE (20:56)
[2019-05-27 21:00] LABS: Albumin 4.2 g/dL (3.2-5.2); Albumin/Globulin Ratio 1.2 (1-3); BUN/Creatinine Ratio 19.5 (8-20); Calcium 9.4 mg/dL (8.6-10.3); EGFR African American 21.5 (>60); EGFR Non-African American 17.7 (>60); Globulin 3.5 g/dL (2-4); HDL Cholesterol 23.8 mg/dL; Total Bilirubin 0.5 mg/dL (0.2-1.0); Total Protein 7.7 g/dL (6.4-8.9)
[2019-05-27 21:23] LABS: Potassium 3.9 mmol/L (3.5-5.0)
[2019-05-27] MEDS ORDERED: Acetaminophen TAB* 325 MG PO PRN (22:15)
[2019-05-28] MEDS ORDERED: Albuterol HFA INHALER* 8 gm MDI INH PRN (00:29)
[2019-05-28] MEDS ORDERED: Dicyclomine CAP* 10 MG PO PRN (00:29)
[2019-05-28] MEDS ORDERED: Acetaminophen TAB* 325 MG PO PRN (00:41)
[2019-05-28] MEDS ORDERED: Warfarin TAB(*) 5 MG PO ONE ×3 (01:00→17:00)
[2019-05-28] MEDS: traMADol TAB* 50 MG PO PRN ×2 (01:13→10:00)
[2019-05-28] MEDS ORDERED: Dextrose 50% VIAL 50 ml IV PUSH PRN (01:31)
--- NOTE | 2019-05-28 04:12 | HP ---
CC: Dr. January Lopez HISTORY AND PHYSICAL: DATE OF ADMISSION: 05/27/19 PRIMARY CARE PHYSICIAN: January Lopez MD HEALTHCARE PROXY: Maria Guadalupe, her daughter. CODE STATUS: DNR/DNI. CHIEF COMPLAINT: Few hours of slurred speech, blurry vision, and left arm and leg weakness. HISTORY OF PRESENT ILLNESS: Ms. Forte is a 78-year-old woman with morbid obesity; DM2 on insulin; HFrEF 40%; CAD with history of NC; COPD; atrial fibrillation on warfarin; CKD; SUKH; obesity hypoventilation syndrome; peripheral neuropathy; anxiety and depression, who is presenting with several hours of blurry vision, slurred speech, and weakness in her left arm, and left leg. She reports that at approximately 5 p.m. on day of presentation, she started seeing double. Around this time, she called her daughter, Kristin, who thought her mother sounded like she had slurred speech on the phone as though her "tongue was swollen." The patient also reported left arm and left leg weakness. She was able to walk, but was leaning to her left side. The patient has never experienced these symptoms before. She reports headache over the last 2 days, which was 8/10 in severity, but has resolved since presenting to the emergency room without intervention. Otherwise, she denies associated symptoms including tingling, numbness, chest pain, shortness of breath, abdominal pain, nausea, vomiting, constipation, diarrhea, dysuria, diaphoresis, palpitations. In the emergency room, a kylah gandhi was called at approximately 10:15 p.m. Telestroke was consulted. A CT scan was negative for acute intracranial pathology. Telestroke in [place] did not recommend tPA or any other acute intervention. The patient was given a liter of normal saline and asked to be admitted medicine for further care. By the time of interview, the patient reports that her symptoms are getting better. Daughter at bedside reports that her speech is now near normal and the patient is currently denying diplopia except during cranial nerve exam. She is still reporting weakness that has significantly improved on the left side. Of note, the patient had a 6-day hospital admission in October of this year for COPD and CHF exacerbation with acute on chronic hypoxic and hypercarbic respiratory failure complicated by toxic metabolic encephalopathy. During that admission, the patient had transferred to the ICU for lethargy and BiPAP requirement. Of note, she also had myoclonus and it was thought secondary to her use of oxycodone. She had several medication changes during that admission given her reduced renal function including reduction in her Lantus, pregabalin, and had cessation of her narcotics given concern of her significant side effects. PAST MEDICAL HISTORY: 1. Heart failure, reduced ejection fraction with EF 40% to 45%. 2. Coronary artery disease with history of NC. 3. COPD, thought secondary to secondhand smoke, possible component of asthma as well. 4. Chronic kidney disease. 5. Pulmonary fibrosis. 6. SUKH on CPAP 7. Obesity hypoventilation syndrome. 8. Atrial fibrillation on warfarin with permanent pacemaker. 9. Insulin-dependent diabetes. 10. Hypertension. 11. Irritable bowel syndrome. 12. GERD. 13. Peripheral neuropathy. 14. Anxiety. 15. Depression. PAST SURGICAL HISTORY: Cholecystectomy, appendectomy, hysterectomy, permanent pacemaker insertion 2009. HOME MEDICATIONS: Of note, the patient does not have her home medication list with her, but she states there have been no significant changes since her discharge in Oct, and her discharge medications are as follows: 1. Warfarin 5 mg daily except Tuesdays 2.5. 2. Torsemide 40 mg alternating with 60 mg daily. 3. Metolazone 2.5 mg daily. 4. Prednisone 10 mg daily. 5. Lantus 40 units every 12 hours. 6. Linagliptin 1 tablet daily. 7. Metoprolol succinate 100 mg twice a day. 8. Pravastatin 80 mg daily. 9. Lyrica 25 mg twice a day. 10. Ropinirole 0.25 to 0.5 mg at bedtime. 11. Omeprazole 40 mg daily. 12. Dulera 2 puffs twice a day. 13. Singulair 10 mg daily. 14. Potassium chloride 1 tablet twice a day. 15. Bentyl 10 mg 4 times a day. 16. Allopurinol 100 mg daily. 17. Albuterol 2 puffs every 4 hours as needed for shortness of breath. ALLERGIES: 1. LATEX, swelling. 2. SHELLFISH, swelling of face, lips, throat. 3. CEPHALEXIN, facial redness/flushing. 4. DOFETILIDE, palpitations. 5. ENOXAPARIN, blood too thin. FAMILY HISTORY: Positive for cardiac disease. Brother had an NC at the age of 34. SOCIAL HISTORY: The patient lives with 2 of her sons. 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 She denies tobacco use or other recreational drugs. She is very rare alcohol use. She uses a cane and a walker on an as needed basis, but is largely otherwise independent in her ADLs. Her healthcare proxy is her daughter Maria Guadalupe Ortiz. REVIEW OF SYSTEMS: A complete 10-point review of was performed and pertinent positives and negatives are listed in the HPI. PHYSICAL EXAM: GENERAL: She is a well-appearing woman, in no acute distress, who is alert and interactive and very pleasant. VITAL SIGNS: Afebrile, heart rate 70s, blood pressure 116/61, respiratory rate 20, oxygen saturation 99% on room air. NECK: Supple, unable to appreciate JVP given habitus. HEENT: With moist mucous membranes. OP clear. LUNGS: Clear to auscultation bilaterally. HEART: Irregularly irregular. No murmurs, gallops, or rubs. ABDOMEN: Soft, nontender, nondistended. EXTREMITIES: No LE edema. WWP. NEURO: A and O x3. Mildly slurred speech, impaired adduction of right eye on left villaseñor gaze, but otherwise CN II through XII intact. Sensation intact bilaterally in all 4 extremities. Strength in right arm and right legs 5/5. Strength in left arm 4+/5 and 4/5 in left leg. No pronator drift. DIAGNOSTIC STUDIES AND IMAGING: Labs reviewed and significant for WBC mildly elevated to 11.7 without a left shift. INR subtherapeutic at 1.22. Sodium decreased to 133. Creatinine 2.62, which is near the patient's baseline, but BUN is elevated to 51. Glucose 327 and HgbA1c 9.5. Troponin negative. LFTs normal. LDL cholesterol 24. Triglyceride 04/19/19, not fasted. UA with glucose. Brain CT with little change from CT scan in October, no acute interval intracranial process identified, minimal right frontal and ethmoid sinus disease. Chest x-ray with cardiomegaly, pending official read. ASSESSMENT AND PLAN: Ms. Forte is a 78-year-old woman with CAD and history of NC; HFrEF 40%; DM2 on insulin; COPD; SUKH and obesity hypoventilation syndrome on CPAP; CKD; atrial fibrillation on warfarin; and peripheral neuropathy, who is presenting with several hours of left hand and leg weakness associated with loss of adduction in her right eye and slurred speech. She was found with hyperglycemia, a subtherapeutic INR, and a CT that is unremarkable. 1. Concern for cerebrovascular accident. Neurology to be consulted in the morning. Will initiate the patient on aspirin. She is already on a statin and this will be continued. Of note, her triglycerides were elevated, but these were nonfasting labs. Speech eval with PT and OT have been ordered. We will continue neuro checks. The patient has had multiple echoes in the past, but they do not appear to have included bubble studies, so we will order a transthoracic echocardiogram with bubbles, although this test may not be able to be performed until after the holiday weekend. Monitor blood pressure closely. The patient will require blood pressure medicine if systolic blood pressure greater than over 220 mmHg. Glucose control as below. 2. Heart failure. The patient did receive fluids in the emergency room, but appears euvolemic at this time. We will continue home torsemide and metolazone along with home oral potassium supplements. We will continue to monitor volume status and basic metabolic panel and we will follow up transthoracic echocardiogram ordered for patent foramen ovale rule out. 3. CAD with history of myocardial infarction. We will continue the patient's home statin. It is unclear at this time why the patient was never on aspirin at home. The patient denies history of bleeding or other issues with aspirin. We will initiate aspirin this hospitalization given concern for stroke. Continue home metoprolol succinate 100 mg twice a day. 4. Atrial fibrillation. The patient is on warfarin at home, however, her INR was noted to be subtherapeutic. We will restart warfarin here and monitor INR. The patient also likely will qualify for NOAC, but will defer conversation to the morning. Continue on home metoprolol 100 mg twice a day. 5. Chronic obstructive pulmonary disease. The SaO2 goal is 88% to 92%, so we will titrate off oxygen given she is hyperoxic on interview. Continue home prednisone 10 mg daily. 6. Peripheral neuropathy. Last admission, the patient was discharged on pregabalin 25 twice a day, which had previously been 100 mg and 150 mg morning and evening respectively, which is too high given her renal function. We will continue Lyrica 25 twice a day now. The patient is asking for narcotics, but she was not discharged on this after last admission. It does appear that she had received tramadol from her PCP earlier this year, so we will order that medication and continue to assess pain control in the morning. We preferred to avoid narcotics in this patient with complicated respiratory history and chronic kidney disease. 7. Gout. Continue allopurinol 100 mg daily. 8. Irritable bowel syndrome. Continue dicyclomine 10 mg 4 times a day. 9. Diabetes. The patient was discharged on 40 units of glargine twice a day, we will continue this along with insulin sliding scale and carb controlled diet. We will continue to monitor blood glucose and treat hyperglycemia with goal less than 180. 10. For gastroesophageal reflux disease, continue home omeprazole 40 mg twice a day. 11. Obstructive sleep apnea. We will order CPAP machine for this hospitalization. 12. DVT prophylaxis. We will continue the patient's home Warfarin. 13. Code status. Conversation alone with the patient, she expresses her desire to be DNR/DNI. She states she has experience with resuscitation, as 2 of her children have required intubation, and she would never want that for herself. However, upon initiating discussion of code status, the patient's son became upset and left the room. Her daughter explained that all her children want her to be full code, although they recognized that it is her wish to be DNR /DNI. This interviewer explained that the purpose of healthcare proxy is to ensure the patient's wishes are known and not to make a decision for the patient that would go against her own wishes. Given conversation had with the patient, will enter order for DNR/DNI and the patient defers filling out MOLST form until the morning. TIME SPENT: Approximately 60 minutes was spent on admission of this patient, more than half of which was spent at bedside for interview and exam. [id number]/[facility] #: [id number] MAGDALENA
[2019-05-28 06:18] LABS: BUN/Creatinine Ratio 21.7 (8-20); Calcium 9.2 mg/dL (8.6-10.3); EGFR African American 24.9 (>60); EGFR Non-African American 20.6 (>60); Magnesium 2.6 mg/dL (1.9-2.7); Potassium 3.9 mmol/L (3.5-5.0)
[2019-05-28] MEDS: Polyethylene Glycol 3350* 17 GM PACKET PO SCH (08:19)
[2019-05-28] MEDS: Atorvastatin* 20 MG TAB PO SCH (08:20)
[2019-05-28] MEDS: Metoprolol Succinate XL TAB* 100 MG PO SCH ×2 (08:20→19:48)
[2019-05-28] MEDS: Metolazone TAB* 5 MG PO SCH (08:20)
[2019-05-28] MEDS: Allopurinol TAB* 100 MG PO SCH (08:20)
[2019-05-28] MEDS: Pantoprazole TAB * 40 MG TAB PO SCH ×2 (08:20→19:48)
[2019-05-28] MEDS: predniSONE TAB* 10 MG PO SCH (08:20)
[2019-05-28] MEDS: Insulin LISPRO* 1 UNITS UNIT SUBCUT SCH ×4 (08:21→20:45)
[2019-05-28] MEDS: Potassium Chlor TAB* 20 MEQ TAB.ER PO SCH ×2 (08:21→19:48)
[2019-05-28] MEDS: Aspirin 81 mg CHEW TAB* 81 MG TAB.CHEW PO SCH (08:21)
[2019-05-28] MEDS: FLUTICASONE/UMECLIDIN/VILANTER 1 PUFF MDI INH SCH (08:23)
[2019-05-28] MEDS: Torsemide TAB* 20 MG PO SCH (08:23)
[2019-05-28] MEDS ORDERED: Torsemide TAB* 20 MG PO SCH (09:00)
--- NOTE | 2019-05-28 12:40 | PN ---
Subjective Date of Service: 05/28/19 Interval History: Patient tells me her left sided arm and leg weakness is still present but improved. She has chronic hand and feet tingling and has been diagnosed with diabetic neuropathy. She feels the tingling today and tells me its slightly worse in her left hand. She reports left shoulder pain. Her daughter tells me the patient "slumped" into a chair yesterday and believes the shoulder pain started then. She feels intermittent sensation of room spinning at times, including when seated, which lasts only seconds and resolves on its own. She was having double vision yesterday which is now resolved. She tells me she was having chest pressure yesterday which is now resolved. No chest pain at any point. Feels her breathing is comfortable. Denies headache, lightheadedness, abd pain. Objective Active Medications: Acetaminophen (Tylenol Tab*) 975 mg PO Q8H PRN PRN Reason: PAIN - MILD Albuterol (Ventolin Hfa Inhaler*) 2 puff INH Q4H PRN PRN Reason: SOB/WHEEZING Allopurinol (Zyloprim Tab*) 100 mg PO DAILY [facility] Last Admin: 05/28/19 08:20 Dose: 100 mg Aspirin (Aspirin 81 Mg Chew Tab*) 81 mg PO DAILY [facility] Last Admin: 05/28/19 08:21 Dose: 81 mg Atorvastatin Calcium (Lipitor*) 20 mg PO DAILY [facility]; Protocol Last Admin: 05/28/19 08:20 Dose: 20 mg Dextrose (Dextrose 50% Vial 50 Ml*) 25 ml IV PUSH .FOR FS < 60 - SS PRN PRN Reason: FS < 60 Dicyclomine HCl (Bentyl Cap*) 10 mg PO QID PRN PRN Reason: PAIN - ABDOMINAL Insulin Human Lispro (Humalog*) 0 units SUBCUT ACHS [facility]; Protocol Last Admin: 05/28/19 11:34 Dose: 6 unit Metolazone (Zaroxolyn Tab*) 2.5 mg PO DAILY@0830 [facility] Last Admin: 05/28/19 08:20 Dose: 2.5 mg Metoprolol Succinate (Toprol Xl Tab*) 100 mg PO BID [facility] Last Admin: 05/28/19 08:20 Dose: 100 mg Pantoprazole Sodium (Protonix Tab*) 40 mg PO BID [facility] Last Admin: 05/28/19 08:20 Dose: 40 mg Pharmacy Profile Note (Coumadin Per Pharmacy*) 1 note FOLLOW UP .PER PHARMACY PROTOC [facility]; Protocol Polyethylene Glycol/Electrolytes (Miralax*) 17 gm PO DAILY [facility] Last Admin: 05/28/19 08:19 Dose: 17 gm Potassium Chloride (Klor Con Er Tab*) 20 meq PO BID [facility] Last Admin: 05/28/19 08:21 Dose: 20 meq Prednisone (Deltasone Tab*) 10 mg PO DAILY [facility] Last Admin: 05/28/19 08:20 Dose: 10 mg Ropinirole HCl (Requip Tab*) 0.25 mg PO BEDTIME [facility] Torsemide (Demadex*) 60 mg PO DAILY [facility] Last Admin: 05/28/19 08:23 Dose: 60 mg Tramadol HCl (Ultram*) 50 mg PO TID PRN PRN Reason: Pain - Moderate to Severe Last Admin: 05/28/19 10:00 Dose: 50 mg Warfarin Sodium (Coumadin Tab(*)) 5 mg PO ONCE ONE Stop: 05/28/19 17:01 Vital Signs - 8 hr 05/28/19 05/28/19 05/28/19 07:15 08:00 10:00 Temperature 97.9 F Pulse Rate 74 Respiratory 18 20 20 Rate Blood Pressure 123/50 (mmHg) O2 Sat by Pulse 99 99 Oximetry 05/28/19 05/28/19 11:15 11:35 Temperature 97.6 F Pulse Rate 72 Respiratory 18 20 Rate Blood Pressure 133/65 (mmHg) O2 Sat by Pulse 96 Oximetry Oxygen Devices in Use Now: Nasal Cannula Appearance: Obese, elderly black female, sitting in chair, appearing in NAD, two daughters at bedside Eyes: No Scleral Icterus, PERRLA, - - visual saab full to confrontation Ears/Nose/Mouth/Throat: Mucous Membranes Moist Neck: NL Appearance and Movements; NL JVP Respiratory: Symmetrical Chest Expansion and Respiratory Effort, Clear to Auscultation Cardiovascular: NL Sounds; No Murmurs; No JVD, RRR Abdominal: - - abd soft, nontender, nondistended Extremities: No Edema, No Clubbing, Cyanosis, - - No tenderness to palpation throughout left shoulder; active ROM of left UE intact, does express tenderness with posterior horizontal adduction of left shoulder Skin: No Rash or Ulcers Neurological: Alert and Oriented x 3, NL Sensation - strength 5/5 in right LE and 4/5 in left LE Result Diagrams: 05/27/19 20:37 05/28/19 05:08 Assess/Plan/Problems-Billing Assessment: 78 yo black female with PMHx COPD on 2L NC at home, HFrEF, CAD s/p NE, pulmonary fibrosis, SUKH, Afib s/p PPM on coumadin, HTN presents with left sided UE and LE weakness and diplopia. - Patient Problems (1) Left-sided weakness Current Visit: Yes Status: Acute Code(s): R53.1 - WEAKNESS SNOMED Code(s) : 632763838 Comment: -left upper extremity and lower extremity weakness, now improving; concern for TIA vs CVA -CT brain negative -unable to perform CTA head/neck due to CKD, unable to perform MRI due to non- compatible pacemaker -appreciate input from neurology service regarding further imaging if necessary -echo with bubble pending -LDL with good control, continue statin and ASA -pt on coumadin, no plavix at this time (2) Subtherapeutic international normalized ratio (INR) Current Visit: Yes Status: Acute Code(s): R79.1 - ABNORMAL COAGULATION PROFILE SNOMED Code(s): 026203346 Comment: -INR at admission subtherapeutic -patient tells me she has had struggles with maintaining therapeutic INR outpatient terminal gauger -this is likely the cause of her likely CVA -as INR is <3, I will discontinue coumadin, and start xarelto this evening; eliquis has no evidence in patients with CrCl<25 and patient currently has CrCl to this degree (3) Left shoulder pain Current Visit: Yes Status: Acute Code(s): M25.512 - PAIN IN LEFT SHOULDER SNOMED Code(s): 07419909 Comment: -ROM intact but does have pain with movement -I believe this is musculoskeletal due to the mechanism of the patient falling into a chair yesterday -continue prn tramadol (4) COPD (chronic obstructive pulmonary disease) Current Visit: Yes Status: Acute Code(s): J44.9 - CHRONIC OBSTRUCTIVE PULMONARY DISEASE, UNSPECIFIED SNOMED Code(s): 54591605 Comment: -continue home trelegy ellipta, singulair, and prn albuterol -on baseline 2L oxygen (5) Congestive heart failure (CHF) Current Visit: No Status: Acute Code(s): I50.9 - HEART FAILURE, UNSPECIFIED SNOMED Code(s): 16366919 Comment: -systolic CHF with EF 40-45% -no evidence of acute decompensation -continue torsemide, metoprolol, metolazone (6) Chronic kidney disease Current Visit: No Status: Acute Code(s): N18.9 - CHRONIC KIDNEY DISEASE, UNSPECIFIED SNOMED Code(s): 042842699 Comment: -at baseline (7) GERD (gastroesophageal reflux disease) Current Visit: No Status: Acute Code(s): K21.9 - GASTRO-ESOPHAGEAL REFLUX DISEASE WITHOUT ESOPHAGITIS SNOMED Code(s): 966753908 Comment: -Continue PPI (8) HTN (hypertension) Current Visit: No Status: Acute Code(s): I10 - ESSENTIAL (PRIMARY) HYPERTENSION SNOMED Code(s): 16447057 Comment: - Normotensive - Continue Metoprolol (9) SUKH (obstructive sleep apnea) Current Visit: No Status: Acute Code(s): G47.33 - OBSTRUCTIVE SLEEP APNEA ( ADULT) (PEDIATRIC) SNOMED Code(s): 32883589 Comment: -overnight CPAP ordered (10) Diabetes mellitus type 2 in obese Current Visit: Yes Status: Acute Code(s): E11.69 - TYPE 2 DIABETES MELLITUS WITH OTHER SPECIFIED COMPLICATION; E66.9 - OBESITY, UNSPECIFIED SNOMED Code(s) : 08096719 Comment: -SS lispro and fingersticks -lantus 30 U BID (previously discharged on 40 U BID) (11) Atrial fibrillation Current Visit: No Status: Acute Code(s): I48.91 - UNSPECIFIED ATRIAL FIBRILLATION SNOMED Code(s): 04587764 Comment: - currently paced - continue metoprolol - changing coumadin to xarelto as previously discussed (12) DNR (do not resuscitate) Current Visit: Yes Status: Acute (13) DVT prophylaxis Current Visit: No Status: Acute Code(s): SZM2903 - SNOMED Code(s): 939300185 Comment: -subtherapeutic INR, given one dose of subQ heparin today, starting xarelto this evening
[2019-05-28] MEDS ORDERED: Enoxaparin(*) 30 MG/0.3 ML SYR SUBCUT SCH (13:00)
[2019-05-28 13:33] LABS: INR 1.33 (0.82-1.09)
[2019-05-28] MEDS ORDERED: Heparin VIAL(*) 5000 UNITS/ML VIAL (FIVE THOUSAND) SUBCUT SCH (14:00)
[2019-05-28] MEDS ORDERED: Insulin GLARGINE(*) 1 UNITS UNIT SUBCUT SCH ×2 (19:00)
[2019-05-28] MEDS: Ropinirole TAB* 0.5 MG TAB PO SCH (19:48)
[2019-05-28] MEDS: Rivaroxaban TAB(*) 15 MG PO SCH (19:48)
--- NOTE | 2019-05-28 21:27 | CONS ---
NEUROLOGY CONSULTATION: DATE OF CONSULT: 05/28/19 LOCATION: She is an inpatient in room 448. HOSPITALIST: OSMIN Johnson PRIMARY CARE PHYSICIAN: Dr. Lopez. CHIEF COMPLAINT: Episode of double vision, left-sided weakness. HISTORY OF PRESENT ILLNESS: Emi Forte is a very camilla 78-year-old right- handed woman, who was in her usual state of health yesterday at around 5 p.m. when she developed double vision. Things we re side by side. She was evaluated in the emergency room where Dr. Mccall noted decreased adduction of her right eye and horizontal gaze, which was accompanied by diplopia. She had left-sided weakness , which apparently was more profound before she presented to the emergency room and improved while wilmer was there. The description in the emergency room was a slight drift of the left arm and a drift of the left leg such that it hit the bed. She had a telestroke evaluation and tPA was not given becmegha guillen of her improvement over time and that she was on warfarin with an INR of 1.22. She could not get a CT angiogram because she has chronic renal dysfunction and she cannot get an MRI scan because of her pacemaker. There is no prior history of transient ischemic attack or stroke. She has never had double vision be fore. Currently, she feels like her left side has pins and needles. She feels that the left arm is perhaps weak and a little clumsy and also that the left side is somewhat weak and/or clumsy. She has a little bit of a dull frontal headache today and normally she does not get headaches. Yesterday, s he said she was markedly dizzy and nauseous with onset of symptoms. Her speech was reportedly slurre d. She does not have any double vision today nor dizziness or nausea. PAST MEDICAL HISTORY: Her past medical history is notable for chronic atrial fibrillation, pacemaker , chronic obstructive pulmonary disease, diabetes, hypertension, chronic kidney disease, prior histor y of ME, history of congestive heart failure, pulmonary fibrosis, hypertension, irritable bowel syndr ome, gastroesophageal reflux, peripheral neuropathy, anxiety, and depression. PAST SURGICAL HISTORY: She had a cholecystectomy, hysterectomy, pacemaker. MEDICATIONS: Medications at home consist of: 1. Warfarin. 2. Torsemide 40 mg alternating with 60 mg q. day. 3. Metolazone 2.5 mg p.o. q. day. 4. Prednisone 10 mg p.o. q. day. 5. Lantus insulin q.12 hours. 6. Linagliptin 1 p.o. q. day. 7. Metoprolol 100 mg p.o. b.i.d. 8. Pravastatin 80 mg p.o. q. day. 9. Lyrica 25 mg p.o. b.i.d. 10. Ropinirole 0.25 mg q.h.s. 11. Omeprazole 40 mg p.o. q. day. 12. Dulera 2 puffs b.i.d. 13. Singulair 10 mg p.o. q. day. 14. Potassium 1 p.o. q. day. 15. Allopurinol 100 mg p.o. q. day. 16. Albuterol 2 puffs q.4 hours p.r.n. shortness of breath. ALLERGIES: She is allergic to LATEX, which causes swelling; SHELLFISH causes swelling of throat and face. FAMILY HISTORY: Noncontributory. REVIEW OF SYSTEMS: Negative for recent change in weight. No recent fevers or flu. No recent change in medications. No recent falls. No problem swallowing. No recent change in hearing. The rest of the 14-point review of systems is unremarkable other than the history of present illness and past med ical history. PHYSICAL EXAM: She is morbidly obese. Temperature 97.6, blood pressure 133/65, heart rate 70 and ir regularly irregular. Oxygen saturation is 96% on supplemental oxygen 2 L by nasal cannula. Lungs re veal few scattered wheezes. Heart tones are very distant, but irregular. I do not hear any murmurs. Neck is supple. I cannot palpate her carotid pulses, but I do not auscultate any bruits either. O ral mucosa is moist and atraumatic. Neurologic Exam: Pupils react equally from 3 to 2 mm. Eye movem ents are normal. There is no double vision. Visual saab are full to confrontation. Funduscopic e xam reveals sharp discs and silver wiring. I do not see any hemorrhages. Facial musculature reveals minimal flattening of the left nasolabial fold. Facial sensations to light touch are symmetric. Fa cial sensation to pin is diminished on the right side relative to the left. Sensory exam of extremities reveals intact to light touch. Pin discrimination is diminished in the r ight arm and leg relative to the left. Motor exam reveals a mild left pronator drift. She has good strength in the left leg and in the left arm proximally and normal strength on the right. Finger taps are very slow on the left and finger-t o-nose move is clumsy on the left. Foot taps are slow and clumsy in the left relative to the right. She is areflexic. Plantar responses are flexor. I did not attempt to ambulate her. She is alert and oriented and a good detailed historian. Memory seems intact and language is fluent. She has adequate attention, concentration, and fund of knowledge. DIAGNOSTIC STUDIES/LAB DATA: Laboratory data includes brain CT interpreted as normal. I reviewed e images and I agreed. Laboratory data notable for CBC without mildly elevated white blood cell count at 11.7, platelet coun t is borderline low at 142,000. Her INR at this morning is up to 1.33. PTT normal yesterday at 34.6 . Chemistries this morning are notable for a creatinine of 2.3, which is similar to historical norms . BUN is 50, carbon dioxide elevated at 33, glucose this morning 273. Her hemoglobin A1c from yeste rday is 9.5%. Rest of the chemistry profile is unremarkable. Her cholesterol level yesterday was 14 4 and LDL 24 measured directly. Urinalysis is unremarkable other than 3+ glucose. IMPRESSION AND PLAN: Impression is that of a brain stem stroke. Fortunately, most of her symptoms h ad resolved. She cannot get an MRI scan and cannot get a CT angiogram. A carotid ultrasound would n ot provide any useful information. She is already anticoagulated, but she was subtherapeutic on warf alfredito. I think, she probably would be better served on apixaban. She would need renal dosing. I lacy l discuss my impression with Mone Muse. [id number]/[facility] #: [id number]
[2019-05-28] MEDS ORDERED: Insulin LISPRO* 1 UNITS UNIT SUBCUT ONE (22:51)
[2019-05-29] MEDS ORDERED: Insulin GLARGINE(*) 1 UNITS UNIT SUBCUT SCH ×3 (02:15→18:00)
[2019-05-29] MEDS: traMADol TAB* 50 MG PO PRN (05:41)
[2019-05-29 06:56] LABS: BUN/Creatinine Ratio 23.7 (8-20); Calcium 9.5 mg/dL (8.6-10.3); EGFR African American 26.4 (>60); EGFR Non-African American 21.8 (>60); Magnesium 2.5 mg/dL (1.9-2.7); Potassium 3.9 mmol/L (3.5-5.0)
[2019-05-29] MEDS ORDERED: Perflutren Lipid Microsphere* 3 ML VIAL ONE (07:05)
[2019-05-29] MEDS: FLUTICASONE/UMECLIDIN/VILANTER 1 PUFF MDI INH SCH (07:26)
[2019-05-29] MEDS: Metoprolol Succinate XL TAB* 100 MG PO SCH ×2 (09:37→21:24)
[2019-05-29] MEDS: Metolazone TAB* 5 MG PO SCH (09:37)
[2019-05-29] MEDS: Potassium Chlor TAB* 20 MEQ TAB.ER PO SCH ×2 (09:38→21:24)
[2019-05-29] MEDS: Atorvastatin* 20 MG TAB PO SCH (09:38)
[2019-05-29] MEDS: predniSONE TAB* 10 MG PO SCH (09:38)
[2019-05-29] MEDS: Pantoprazole TAB * 40 MG TAB PO SCH ×2 (09:38→21:24)
[2019-05-29] MEDS: Allopurinol TAB* 100 MG PO SCH (09:38)
[2019-05-29] MEDS: Aspirin 81 mg CHEW TAB* 81 MG TAB.CHEW PO SCH (09:39)
[2019-05-29] MEDS: Insulin LISPRO* 1 UNITS UNIT SUBCUT SCH ×4 (09:39→21:23)
[2019-05-29] MEDS: Polyethylene Glycol 3350* 17 GM PACKET PO SCH (09:40)
[2019-05-29] MEDS: Torsemide TAB* 20 MG PO SCH (09:48)
--- NOTE | 2019-05-29 10:56 | ECHO ---
*[facility]* [place] [address] Fax #: [phone] Transthoracic Echocardiogram Patient: Emi Suarez : 1940 Study Date: 05/29/2019 Age: 78 Gender: F HR: 72 bpm Height: 64 in /162.6 cm BSA: 2.15 m^2 Weight: 249.5 lb /113.4 kg BMI: 42.9 kg/m^2 *[facility]iance Director: * Lashell Sherwood [facility] *Referring Physician: * Kalyn Hogan *Reading Physician: * Randal Hernandez MD Indications: CVA. History: Atrial fibrillation. Coronary artery disease. Chronic obstructive pulmonary disease. PMH: Myocardial infarction. Functional status: Following treatment plan for sleep apnea. Risk factors: Diabetes mellitus. Morbidly obese. Labs, prior tests, procedures, and surgery: Permanent pacemaker system implantation. Conclusions Summary: - Left ventricle: The cavity size is normal. Wall thickness is mildly to moderately increased. Systolic function is mildly reduced. The estimated ejection fraction is 40-45%. Mild diffuse hypokinesis. - Right ventricle: Systolic function is mildly reduced. Systolic pressure is mildly to moderately increased. - Ventricular septum: There is abnormal interventricular septal wall motion consistent with an RV pacemaker. - Right atrium: The atrium is moderately to severely dilated. - Atrial septum: The atrial septum appears aneurysmal. A PFO is demonstrated by agitated saline contrast. - Mitral valve: There is mild to moderate regurgitation. - Aortic valve: There is no evidence of stenosis. There is trace to mild regurgitation. - Tricuspid valve: There is severe regurgitation. - Pericardium, extracardiac: There is no significant pericardial effusion. - Pulmonary arteries: Systolic pressure is mildly to moderately increased. - Compared to study of 06/21/18, there is little change except the bubble study now shows presence of a patent formaen ovale. Study data: Transthoracic echocardiogram. Procedure: Transthoracic echocardiography was performed. Image quality was suboptimal. The study was technically limited due to body habitus. Intravenous Definity , 3.5 mlswas administered. A bubble study was performed. Complete 2D, spectral Doppler, and color flow Doppler. Location: Bedside. Patient status: Inpatient. Patient room number: 448-1. Rhythm: Paced rhythm. Findings Left ventricle: Poorly visualized. The cavity size is normal. Wall thickness is mildly to moderately increased. Systolic function is mildly reduced. The estimated ejection fraction is 40-45%. Mild diffuse hypokinesis. Doppler parameters are consistent with abnormal left ventricular relaxation (grade 1 diastolic dysfunction). Right ventricle: The cavity size is moderately dilated. Pacer wire noted in the right ventricle. Systolic function is mildly reduced. Systolic pressure is mildly to moderately increased. Ventricular septum: There is abnormal interventricular septal wall motion consistent with an RV pacemaker. Left atrium: The atrium is severely dilated. Right atrium: The atrium is moderately to severely dilated. Pacer wire noted in right atrium. Atrial septum: The atrial septum appears aneurysmal. A PFO is demonstrated by agitated saline contrast. Mitral valve: The leaflets are mildly thickened. There is no evidence of stenosis. There is mild to moderate regurgitation. Aortic valve: Poorly visualized. The valve is trileaflet. There is no evidence of stenosis. There is trace to mild regurgitation. Tricuspid valve: The leaflets are normal thickness. There is no evidence of stenosis. There is severe regurgitation. Hepatic cliff flow reversal is present Pulmonic valve: The leaflets are normal thickness. There is no evidence of stenosis. There is trace to mild regurgitation. Aorta: Ascending aorta: The ascending aorta is mildly dilated. The aortic root appears normal. The aortic arch appears normal. Pericardium: A prominent pericardial fat pad is present. There is no significant pericardial effusion. Pulmonary arteries: Poorly visualized. The main pulmonary artery is normal-sized. Systolic pressure is mildly to moderately increased. Systemic veins: Inferior vena cava: The vessel is normal in size. There is (>= 50%) respiratory change in the IVC dimension. Measurements Left ventricle Value Ref Aortic valve Value Ref LANCE, LAX 5.1 cm 3.8 - 5.2 Debbie diam, ED 1.8 cm ----- ESD, LAX (H) 3.7 cm 2.2 - 3.5 Peak v, S 1.3 m/sec ----- FS, LAX 27 % 27 - 45 VTI, S 27.5 cm ----- PW, ED, LAX (H) 1.3 cm 0.6 - 0.9 Mean grad, S 4.0 mm Hg ----- FS 27 % 27 - 45 Peak grad, S 7.0 mm Hg ----- PW, ED (H) 1.3 cm 0.6 - 0.9 LVOT/AV, VTI ratio 0.62 ----- E', lat debbie, TDI (L) 5.4 cm/sec >=10.0 JEFFREY, VTI 1.94 cm^2 --- -- E/e', lat debbie, 10 JEFFREY, Vmax 2.05 cm^2 ----- TDI E', med debbie, TDI (L) 3.5 cm/sec >=7.0 Mitral valve Value Ref E/e', med debbie, 16 Peak E 0.54 m/sec ----- TDI Peak A 0.66 m/sec ----- E', avg, TDI 4.5 cm/sec Decel time 197 ms ----- E/e', avg, TDI 12 <=14 Peak E/A ratio 0.8 --- -- LVOT Value Ref Pulmonic valve Value Ref Diam, S 2.00 cm Peak v, S 1.12 m/sec ----- Area 3.1 cm^2 Peak grad, S 5.0 mm Hg ----- Peak radha, S 0.85 m/sec DC v, ED 1.07 m/sec ----- VTI, S 17.0 cm Mean grad, S 2 mm Hg Tricuspid valve Value Ref SV 53 ml TR peak v (H) 3.1 m/sec <=2.8 SV/bsa 25 ml/m^2 Peak RV-RA grad, S 38 mm Hg ----- Ventricular septum Value Ref Aortic root Value Ref IVS, ED (H) 1.3 cm 0.6 - 0.9 Root diam 2.9 cm <4.3 Right ventricle Value Ref Ascending aorta Value Ref LANCE, LAX 4.7 cm AAo AP diam, S 3.8 cm ----- LANCE minor ax, A4C (H) 5.6 cm 1.9 - 3.5 mid Aortic arch Value Ref Pressure, S 41 mm Hg Arch diam 2.6 cm ----- Left atrium Value Ref Decending aorta Value Ref AP dim, ES (H) 4.90 cm 2.70 - Thomas peak radha 0.46 m/sec ----- 3.80 ML dim, A4C 5.2 cm Pulmonary artery Value Ref SI dim, A4C 6.3 cm Pressure, S 36.0 mm Hg ----- Vol/bsa, ES, 1-p (H) 41 ml/m^2 11 - 40 A4C Inferior vena cava Value Ref Vol/bsa, ES, A/L (H) 55 ml/m^2 16 - 34 Diam 1.9 cm ----- Right atrium Value Ref SI dim, ES (H) 6.6 cm 3.4 - 5.3 ML dim, ES, A4C (H) 4.9 cm 2.6 - 4.4 SI dim, ES, A4C (H) 6.6 cm 3.4 - 5.3 Estimated RAP 3 mm Hg Legend: (L) and (H) melvina values outside specified reference range. Prepared and electronically signed by Randal Hernandez MD 05/29/2019 10:56
[2019-05-29] MEDS ORDERED: Ondansetron TAB* 4 MG PO PRN (10:59)
--- NOTE | 2019-05-29 16:04 | PN ---
Subjective Date of Service: 05/29/19 Interval History: Pt had nausea but no vomiting this morning. She denied new weakness or numbness , but she admitted her speech was still slurred, and her left leg was still weak. She managed to walk with physiotherapy yesterday. Concern of walking independently when getting discharged. Physiotherapy assessed her around noon time, noted pt felt wobbly when walking. Also she felt like she was drifting to the left during ambulation. Objective Active Medications: Acetaminophen (Tylenol Tab*) 975 mg PO Q8H PRN PRN Reason: PAIN - MILD Albuterol (Ventolin Hfa Inhaler*) 2 puff INH Q4H PRN PRN Reason: SOB/WHEEZING Last Admin: 05/28/19 19:45 Dose: 2 puff Allopurinol (Zyloprim Tab*) 100 mg PO DAILY [facility] Last Admin: 05/29/19 09:38 Dose: 100 mg Aspirin (Aspirin 81 Mg Chew Tab*) 81 mg PO DAILY [facility] Last Admin: 05/29/19 09:39 Dose: 81 mg Atorvastatin Calcium (Lipitor*) 20 mg PO DAILY [facility]; Protocol Last Admin: 05/29/19 09:38 Dose: 20 mg Dextrose (Dextrose 50% Vial 50 Ml*) 25 ml IV PUSH .FOR FS < 60 - SS PRN PRN Reason: FS < 60 Dicyclomine HCl (Bentyl Cap*) 10 mg PO QID PRN PRN Reason: PAIN - ABDOMINAL Last Admin: 05/28/19 20:04 Dose: 10 mg Fish Oil (Fish Oil (Nf)) 1,000 mg PO BID [facility]; Protocol Insulin Glargine (Lantus(*)) 100 units SUBCUT DAILY@0700 [facility] Insulin Glargine (Lantus(*)) 105 units SUBCUT DAILY@1800 [facility] Insulin Human Lispro (Humalog*) 0 units SUBCUT ACHS [facility]; Protocol Last Admin: 05/29/19 12:24 Dose: 12 unit Metolazone (Zaroxolyn Tab*) 2.5 mg PO DAILY@0830 [facility] Last Admin: 05/29/19 09:37 Dose: 2.5 mg Metoprolol Succinate (Toprol Xl Tab*) 100 mg PO BID [facility] Last Admin: 05/29/19 09:37 Dose: 100 mg Ondansetron HCl (Zofran Tab*) 4 mg PO Q6H PRN PRN Reason: NAUSEA Last Admin: 05/29/19 11:15 Dose: 4 mg Pantoprazole Sodium (Protonix Tab*) 40 mg PO BID [facility] Last Admin: 05/29/19 09:38 Dose: 40 mg Polyethylene Glycol/Electrolytes (Miralax*) 17 gm PO DAILY [facility] Last Admin: 05/29/19 09:40 Dose: 17 gm Potassium Chloride (Klor Con Er Tab*) 20 meq PO BID [facility] Last Admin: 05/29/19 09:38 Dose: 20 meq Prednisone (Deltasone Tab*) 10 mg PO DAILY [facility] Last Admin: 05/29/19 09:38 Dose: 10 mg Rivaroxaban (Xarelto(*)) 15 mg PO QPM [facility] Last Admin: 05/28/19 19:48 Dose: 15 mg Ropinirole HCl (Requip Tab*) 0.25 mg PO BEDTIME [facility] Last Admin: 05/28/19 19:48 Dose: 0.25 mg Torsemide (Demadex*) 60 mg PO DAILY [facility] Last Admin: 05/29/19 09:48 Dose: 60 mg Tramadol HCl (Ultram*) 50 mg PO TID PRN PRN Reason: Pain - Moderate to Severe Last Admin: 05/29/19 05:41 Dose: 50 mg Vital Signs - 8 hr 05/29/19 05/29/19 05/29/19 08:00 12:00 15:00 Temperature 97.2 F 97.2 F Pulse Rate 71 78 Respiratory 20 20 20 Rate Blood Pressure 121/65 138/61 (mmHg) O2 Sat by Pulse 99 95 Oximetry Oxygen Devices in Use Now: Nasal Cannula Exam: General - NAD, sitting up in bed, on her usual oxygen 2L/min Eyes - PERRLA, EOM intact HEENT- no abnormality Cardiovascular - RRR no m/r/g, no JVD, no carotid bruits Lungs - Clear to auscltation, no use of acessory muscles, no crackles or wheezes. Skin - No rashes, skin warm and dry, no erythematous areas Abdomen - Normal bowel sounds, abdomen soft and nontender Extremeties - No edema, cyanosis or clubbing Musculo Skeletal - 5/5 strength, normal range of motion, no swollen or erythematous joints. Neurological Alert and oriented x 3, slurred speech noted CN: left facial droop strength left LL 4+/5, otherwise all 5 Reflexes: brisk over left side, especially left knee Psychiatry- Mood stable. Result Diagrams: 05/27/19 20:37 05/29/19 06:20 Assess/Plan/Problems-Billing Assessment: 78 yo black female with PMHx COPD on 2L NC at home, HFrEF, CAD s/p [place], pulmonary fibrosis, SUKH, Afib s/p PPM on coumadin, HTN presents with left sided UE and LE weakness and diplopia, which was found to have brains tem stroke. She was also found to have poorly controlled diabetes and hypertriglyceridemia - Patient Problems (1) Stroke Current Visit: Yes Status: Acute Code(s): I63.9 - CEREBRAL INFARCTION, UNSPECIFIED SNOMED Code(s): 780949043 Comment: presented as left hemiparesis, diplopia brainstem stroke likely CT brain negative, unable to perform CTA head/neck due to CKD, unable to perform MRI due to non compatible pacemaker Neurology consult, suggested for NOAC for stroke prevention instead of warfarin continue statin and ASA (2) COPD (chronic obstructive pulmonary disease) Current Visit: Yes Status: Acute Code(s): J44.9 - CHRONIC OBSTRUCTIVE PULMONARY DISEASE, UNSPECIFIED SNOMED Code(s): 27938182 Comment: -continue home trelegy ellipta, singulair, and prn albuterol -on baseline 2L oxygen - on intermediate accountant pred for ? COPD or pulmonary fibrosis (3) Diabetes mellitus type 2 in obese Current Visit: Yes Status: Acute Code(s): E11.69 - TYPE 2 DIABETES MELLITUS WITH OTHER SPECIFIED COMPLICATION; E66.9 - OBESITY, UNSPECIFIED SNOMED Code(s) : 39840458 Comment: - at home, on lantus 90U 7am, 95U 6pm - HbA1c 9.5%, increase by 10% to 100U, 105U - upcoming endocrine appt for insulin resistant DM (4) Left shoulder pain Current Visit: Yes Status: Acute Code(s): M25.512 - PAIN IN LEFT SHOULDER SNOMED Code(s): 05037196 Comment: -ROM intact but does have pain with movement -musculoskeletal due to the mechanism of the patient falling into a chair yesterday (5) Subtherapeutic international normalized ratio (INR) Current Visit: Yes Status: Acute Code(s): R79.1 - ABNORMAL COAGULATION PROFILE SNOMED Code(s): 649030309 Comment: -INR at admission subtherapeutic -patient had struggles with maintaining therapeutic INR outpatient intermediate accountant -change to xarelto (6) Atrial fibrillation Current Visit: No Status: Acute Code(s): I48.91 - UNSPECIFIED ATRIAL FIBRILLATION SNOMED Code(s): 70766072 Comment: - currently paced - continue metoprolol - changing coumadin to xarelto as previously discussed (7) Chronic kidney disease Current Visit: No Status: Acute Code(s): N18.9 - CHRONIC KIDNEY DISEASE, UNSPECIFIED SNOMED Code(s): 142753704 Comment: -at baseline (8) Congestive heart failure (CHF) Current Visit: No Status: Acute Code(s): I50.9 - HEART FAILURE, UNSPECIFIED SNOMED Code(s): 71172340 Comment: -systolic CHF with EF 40-45% -no evidence of acute decompensation -continue torsemide, metoprolol, metolazone (9) DVT prophylaxis Current Visit: No Status: Acute Code(s): YDE4601 - SNOMED Code(s): 993258571 Comment: -subtherapeutic INR, given one dose of subQ heparin today, starting xarelto this evening (10) GERD (gastroesophageal reflux disease) Current Visit: No Status: Acute Code(s): K21.9 - GASTRO-ESOPHAGEAL REFLUX DISEASE WITHOUT ESOPHAGITIS SNOMED Code(s): 239893484 Comment: -Continue PPI (11) HTN (hypertension) Current Visit: No Status: Acute Code(s): I10 - ESSENTIAL (PRIMARY) HYPERTENSION SNOMED Code(s): 20833468 Comment: - Normotensive - Continue Metoprolol (12) SUKH (obstructive sleep apnea) Current Visit: No Status: Acute Code(s): G47.33 - OBSTRUCTIVE SLEEP APNEA ( ADULT) (PEDIATRIC) SNOMED Code(s): 51617629 Comment: -overnight CPAP ordered (13) DNR (do not resuscitate) Current Visit: Yes Status: Acute Status and Disposition: Stays inpatient, aim for discharge soon when she can walk more steadily Attestation Documenting Resident: Eugenie Phillips Supervising Physician: Rachid Slaughter Attestation: This service has been performed in part by a resident under the direction of a teaching physician.I, Rachid Slaughter, performed the service, or was physically present during the critical, or feldman portions of the service, furnished by the resident. I participated in the management of the patient.
[2019-05-29] MEDS: Rivaroxaban TAB(*) 15 MG PO SCH (17:03)
[2019-05-29] MEDS: Ropinirole TAB* 0.5 MG TAB PO SCH (21:24)
[2019-05-29] MEDS: CMCS:OMEGA-3 FATTY ACIDS (NF) 1,000 MG CAP PO SCH (22:27)
[2019-05-30] MEDS ORDERED: Cetirizine* 10 MG TAB PO PRN (06:15)
[2019-05-30] MEDS ORDERED: Insulin GLARGINE(*) 1 UNITS UNIT SUBCUT SCH (07:00)
[2019-05-30] MEDS: FLUTICASONE/UMECLIDIN/VILANTER 1 PUFF MDI INH SCH (07:27)
--- NOTE | 2019-05-30 07:31 | PN ---
Subjective Date of Service: 05/30/19 Interval History: H/C trend: 306->345->347 Pt felt herself more stable when walking, improved in her leg strength. She is keen for home today. Explained US DVT and TTE result to pt and her son. Educated risk factor control for stroke prevention. Objective Active Medications: Acetaminophen (Tylenol Tab*) 975 mg PO Q8H PRN PRN Reason: PAIN - MILD Albuterol (Ventolin Hfa Inhaler*) 2 puff INH Q4H PRN PRN Reason: SOB/WHEEZING Last Admin: 05/28/19 19:45 Dose: 2 puff Allopurinol (Zyloprim Tab*) 100 mg PO DAILY [facility] Last Admin: 05/29/19 09:38 Dose: 100 mg Aspirin (Aspirin 81 Mg Chew Tab*) 81 mg PO DAILY [facility] Last Admin: 05/29/19 09:39 Dose: 81 mg Atorvastatin Calcium (Lipitor*) 20 mg PO DAILY [facility]; Protocol Last Admin: 05/29/19 09:38 Dose: 20 mg Cetirizine HCl (Zyrtec*) 10 mg PO DAILY PRN PRN Reason: Allergy Symptoms Last Admin: 05/30/19 06:41 Dose: 10 mg Dextrose (Dextrose 50% Vial 50 Ml*) 25 ml IV PUSH .FOR FS < 60 - SS PRN PRN Reason: FS < 60 Dicyclomine HCl (Bentyl Cap*) 10 mg PO QID PRN PRN Reason: PAIN - ABDOMINAL Last Admin: 05/28/19 20:04 Dose: 10 mg Fish Oil (Fish Oil (Nf)) 1,000 mg PO BID [facility]; Protocol Last Admin: 05/29/19 22:27 Dose: 1,000 mg Insulin Glargine (Lantus(*)) 100 units SUBCUT DAILY@0700 [facility] Insulin Glargine (Lantus(*)) 105 units SUBCUT DAILY@1800 [facility] Last Admin: 05/29/19 17:04 Dose: 105 units Insulin Human Lispro (Humalog*) 0 units SUBCUT ACHS [facility]; Protocol Last Admin: 05/29/19 21:23 Dose: 12 unit Metolazone (Zaroxolyn Tab*) 2.5 mg PO DAILY@0830 [facility] Last Admin: 05/29/19 09:37 Dose: 2.5 mg Metoprolol Succinate (Toprol Xl Tab*) 100 mg PO BID [facility] Last Admin: 05/29/19 21:24 Dose: 100 mg Ondansetron HCl (Zofran Tab*) 4 mg PO Q6H PRN PRN Reason: NAUSEA Last Admin: 05/29/19 11:15 Dose: 4 mg Pantoprazole Sodium (Protonix Tab*) 40 mg PO BID [facility] Last Admin: 05/29/19 21:24 Dose: 40 mg Polyethylene Glycol/Electrolytes (Miralax*) 17 gm PO DAILY [facility] Last Admin: 05/29/19 09:40 Dose: 17 gm Potassium Chloride (Klor Con Er Tab*) 20 meq PO BID [facility] Last Admin: 05/29/19 21:24 Dose: 20 meq Prednisone (Deltasone Tab*) 10 mg PO DAILY [facility] Last Admin: 05/29/19 09:38 Dose: 10 mg Rivaroxaban (Xarelto(*)) 15 mg PO QPM [facility] Last Admin: 05/29/19 17:03 Dose: 15 mg Ropinirole HCl (Requip Tab*) 0.25 mg PO BEDTIME [facility] Last Admin: 05/29/19 21:24 Dose: 0.25 mg Torsemide (Demadex*) 60 mg PO DAILY [facility] Last Admin: 05/29/19 09:48 Dose: 60 mg Tramadol HCl (Ultram*) 50 mg PO TID PRN PRN Reason: Pain - Moderate to Severe Last Admin: 05/29/19 05:41 Dose: 50 mg Vital Signs - 8 hr 05/29/19 05/30/19 05/30/19 23:46 03:25 07:19 Temperature 97.6 F 97.9 F Pulse Rate 73 70 Respiratory 18 18 20 Rate Blood Pressure 128/71 127/73 (mmHg) O2 Sat by Pulse 99 98 Oximetry Oxygen Devices in Use Now: None Exam: General - NAD, sitting up in bed, on her usual oxygen 2L/min Eyes - PERRLA, EOM intact HEENT- no abnormality Cardiovascular - RRR no m/r/g, no JVD, no carotid bruits Lungs - Clear to auscltation, no use of acessory muscles, no crackles or wheezes. Skin - No rashes, skin warm and dry, no erythematous areas Abdomen - Normal bowel sounds, abdomen soft and nontender Extremeties - No edema, cyanosis or clubbing Musculo Skeletal - 5/5 strength, normal range of motion, no swollen or erythematous joints. Neurological Alert and oriented x 3, slurred speech noted CN: left facial droop strength all 5/5 Reflexes: brisk over bilateral knees Psychiatry- Mood stable. Result Diagrams: 05/27/19 20:37 05/29/19 06:20 Assess/Plan/Problems-Billing Assessment: 78 yo black female with PMHx COPD on 2L NC at home, HFrEF, CAD s/p [place], pulmonary fibrosis, SUKH, Afib s/p PPM on coumadin, HTN, presents with left sided UE and LE weakness and diplopia, which is likely a new onset of brain stem stroke. She was also found to have poorly controlled diabetes and hypertriglyceridemia this admission. - Patient Problems (1) Stroke Status: Acute Code(s): I63.9 - CEREBRAL INFARCTION, UNSPECIFIED SNOMED Code( s): 868024339 Comment: presented as left hemiparesis, diplopia brainstem stroke likely CT brain negative, unable to perform CTA head/neck due to CKD, unable to perform MRI due to non compatible pacemaker Neurology consult, suggested for NOAC for stroke prevention instead of warfarin TTE with bubble study: noted PFO US DVT: no DVT found in bilateral legs continue statin and ASA (2) COPD (chronic obstructive pulmonary disease) Status: Acute Code(s): J44.9 - CHRONIC OBSTRUCTIVE PULMONARY DISEASE, UNSPECIFIED SNOMED Code(s): 43738713 Comment: - continue home trelegy ellipta, singulair, and prn albuterol - on baseline 2L oxygen - on intermediate designer pred for ? COPD or pulmonary fibrosis (3) Diabetes mellitus type 2 in obese Status: Acute Code(s): E11.69 - TYPE 2 DIABETES MELLITUS WITH OTHER SPECIFIED COMPLICATION; E66.9 - OBESITY, UNSPECIFIED SNOMED Code(s): 12221544 Comment: - at home, on lantus 90U 7am, 95U 6pm - HbA1c 9.5%, increase by 10% to 100U, 105U - upcoming endocrine appt for insulin resistant DM (4) Left shoulder pain Status: Acute Code(s): M25.512 - PAIN IN LEFT SHOULDER SNOMED Code(s): 72261346 Comment: -ROM intact but does have pain with movement -musculoskeletal due to the mechanism of the patient falling into a chair yesterday (5) Subtherapeutic international normalized ratio (INR) Status: Acute Code(s): R79.1 - ABNORMAL COAGULATION PROFILE SNOMED Code(s): 701157788 Comment: -INR at admission subtherapeutic -patient had struggles with maintaining therapeutic INR outpatient intermediate designer -change to xarelto (6) Atrial fibrillation Status: Acute Code(s): I48.91 - UNSPECIFIED ATRIAL FIBRILLATION SNOMED Code( s): 89381026 Comment: - currently paced - continue metoprolol - changing coumadin to xarelto as previously discussed (7) Chronic kidney disease Status: Acute Code(s): N18.9 - CHRONIC KIDNEY DISEASE, UNSPECIFIED SNOMED Code(s): 570264774 Comment: -at baseline (8) Congestive heart failure (CHF) Status: Acute Code(s): I50.9 - HEART FAILURE, UNSPECIFIED SNOMED Code(s): 23623456 Comment: -systolic CHF with EF 40-45% -no evidence of acute decompensation -continue torsemide, metoprolol, metolazone (9) DVT prophylaxis Status: Acute Code(s): ZNH0352 - SNOMED Code(s): 871248379 Comment: -subtherapeutic INR,on xarelto (10) GERD (gastroesophageal reflux disease) Status: Acute Code(s): K21.9 - GASTRO-ESOPHAGEAL REFLUX DISEASE WITHOUT ESOPHAGITIS SNOMED Code(s): 304997354 Comment: -Continue PPI (11) HTN (hypertension) Status: Acute Code(s): I10 - ESSENTIAL (PRIMARY) HYPERTENSION SNOMED Code(s) : 15854185 Comment: - Normotensive - Continue Metoprolol (12) Hypertriglyceridemia Status: Acute Code(s): E78.1 - PURE HYPERGLYCERIDEMIA SNOMED Code(s): 844268031 Comment: Reviewed lipid panel, TG 723 started fish oil (13) SUKH (obstructive sleep apnea) Status: Acute Code(s): G47.33 - OBSTRUCTIVE SLEEP APNEA (ADULT) (PEDIATRIC) SNOMED Code(s): 84866540 Comment: -overnight CPAP ordered (14) DNR (do not resuscitate) Status: Acute Status and Disposition: Discharge today back home Attestation Documenting Resident: Eugenie Phillips Supervising Physician: Joselito Beebe Attending/Supervising Physician Comment: Pt seen and examined. Agree with plan as outlined in note from today by Dr. Phillips unless indicated here. Attestation: This service has been performed in part by a resident under the direction of a teaching physician.I, Joselito Beebe, performed the service, or was physically present during the critical, or feldman portions of the service, furnished by the resident. I participated in the management of the patient.
[2019-05-30] MEDS: Insulin LISPRO* 1 UNITS UNIT SUBCUT SCH ×2 (09:12→13:01)
[2019-05-30] MEDS: Metolazone TAB* 5 MG PO SCH (09:23)
[2019-05-30] MEDS: predniSONE TAB* 10 MG PO SCH (09:24)
[2019-05-30] MEDS: Aspirin 81 mg CHEW TAB* 81 MG TAB.CHEW PO SCH (09:24)
[2019-05-30] MEDS: Metoprolol Succinate XL TAB* 100 MG PO SCH (09:24)
[2019-05-30] MEDS: Atorvastatin* 20 MG TAB PO SCH (09:24)
[2019-05-30] MEDS: Pantoprazole TAB * 40 MG TAB PO SCH (09:24)
[2019-05-30] MEDS: Potassium Chlor TAB* 20 MEQ TAB.ER PO SCH (09:24)
[2019-05-30] MEDS: Allopurinol TAB* 100 MG PO SCH (09:25)
[2019-05-30] MEDS: CMCS:OMEGA-3 FATTY ACIDS (NF) 1,000 MG CAP PO SCH (09:33)
[2019-05-30] MEDS: Torsemide TAB* 20 MG PO SCH (09:33)
[2019-05-30] MEDS: Polyethylene Glycol 3350* 17 GM PACKET PO SCH (09:34)
[2019-05-30] MEDS: traMADol TAB* 50 MG PO PRN (11:54)
[2019-05-30 12:05] VITALS: BP 117/67
--- NOTE | 2019-05-31 21:52 | DS ---
CC: Dr. Lopez* DISCHARGE SUMMARY: DATE OF ADMISSION: 05/27/19 DATE OF DISCHARGE: 05/30/19 PRIMARY CARE PROVIDER: Dr. Lopez. DISPOSITION AT DISCHARGE: Home. CONDITION ON DISCHARGE: Improved. PRIMARY DIAGNOSIS: Suspected brain stem stroke with resolution of her symptoms. SECONDARY DIAGNOSES: Include: 1. Subtherapeutic INR. 2. Atrial fibrillation. 3. Heart failure with reduced ejection fraction. 4. Coronary artery disease with history of myocardial infarction. 5. Chronic obstructive pulmonary disease. 6. Chronic kidney disease. 7. Pulmonary fibrosis. 8. Obstructive sleep apnea, on CPAP. 9. Obesity hypoventilation syndrome. 10. Insulin dependent diabetes mellitus. 11. Hypertension. 12. Irritable bowel syndrome. 13. Gastroesophageal reflux disease. 14. Peripheral neuropathy. 15. Anxiety and depression. 16. Hypertriglyceridemia. 17. Presence of patent foramen ovale. 18. Severe tricuspid valve regurgitation. MEDICATIONS ON DISCHARGE: Include: 1. Tramadol 50 mg 3 times a day. 2. Torsemide 60 mg alternating with 40 mg every other day. 3. Ropinirole 0.25 to 0.5 mg at bedtime as needed. 4. Lyrica 100 mg in the morning and 150 mg at bedtime. 5. Pravachol 80 mg daily. 6. Potassium chloride 20 mEq twice daily. 7. MiraLAX 17 g daily. 8. Omeprazole 40 mg twice daily. 9. [place]-3 fatty acids 1000 mg twice daily. 10. Patanol 0.1% 2 drops both eyes daily. 11. Singulair 10 mg daily. 12. Metoprolol succinate 100 mg twice daily. 13. Tradjenta 5 mg daily. 14. Trelegy Ellipta 1 puff daily. 15. Flonase 2 sprays both nares daily. 16. Bentyl 10 mg 4 times a day as needed. 17. Cyclobenzaprine 10 mg twice daily as needed. 18. Vitamin B12 of 500 mcg daily. 19. Cholecalciferol 2000 units daily. 20. Bisacodyl suppository 5 mg twice daily as needed. 21. Allopurinol 100 mg daily. 22. Albuterol HFA 2 puffs every 4 hours as needed. 23. Prednisone 10 mg daily. 24. Rivaroxaban 15 mg in the evening. Please note new medication dosed renally. 25. Zofran 4 mg every 6 hours as needed. 26. Insulin glargine 90 units in the morning and 95 units in the evening. Please note increased dose. 27. Aspirin 81 mg daily. PERTINENT LABORATORY DATA: Hemoglobin A1c 9.5% this admission, creatinine 2.2 on the day prior to discharge, triglycerides 723, total cholesterol 144, LDL not run because of hypertriglyceridemia. IMAGING PERFORMED DURING HOSPITAL STAY: Transthoracic echocardiogram; left ventricle is poorly visualized. Estimated EF is 40% to 45% with mild diffuse hypokinesis. Doppler parameters are consistent with abnormal left ventricular relaxation. Right ventricular systolic function is mildly reduced. Systolic pressure is mildly to moderately increased. The right ventricle and right atrium is moderately to severely dilated. Atrial septum appears aneurysmal with a PFO demonstrated by agitated saline contrast. Mild to moderate MR, trace AR, severe tricuspid valve regurgitation. HISTORY OF PRESENT ILLNESS AND HOSPITAL COURSE: This is a 78-year-old female who presented to the hospital with double vision, noted to have decreased adduction of her right eye, associated with diplopia as well as left-sided weakness that improved. Telestroke was consulted. She now received tPA secondary to her improving symptoms. Her weakness completely resolved as did her gaze palsy during the course of the hospital stay. She was found to have subtherapeutic INR in the setting of known atrial fibrillation as well as newly identified PFO. She was transitioned to Xarelto during the course of this hospital stay for findings as mentioned above. Her long-acting Lantus was increased. The patient indicates she does not take her sliding scale lispro or fixed dose lispro at home. She does have a followup appointment with Endocrinology shortly. The patient had no residual deficits at the time of discharge. She did not receive MRI secondary to a permanent pacemaker. So the diagnosis of her brain stem stroke was made clinically. There are no complications during the course of this hospital stay. FOLLOWUP: At followup, please; 1. Evaluate for medicine adherence. 2. Evaluate glucose control. Adjust as necessary. Ensure followup with Endocrinology. 3. No other specific labs or vitals that need followup. Reasons to return to the hospital including, but not limited to, recurrent or worsening symptoms including paresthesias, weakness, slurred speech, recurrent or worsening symptoms, chest pain, shortness of breath, nausea, vomiting, lightheadedness, loss of consciousness, bleeding from any source were discussed with the patient and her daughter, they acknowledged understanding. TIME SPENT: Greater than 60 minutes were spent on the discharge of this patient , greater than half was spent [id number] with the patient. [id number]/[facility] #: [id number] [place]
== END 2019-05-30 13:10 | disposition home health service (06) | DRG 65 ==
LOC: ED 19:56 → MEDTELE 22:15
PROVIDERS: ADMIT Internal Medicine; ATTEND Internal Medicine
DX: I63.89 Other cerebral infarction (principal); G81.94 Hemiplegia, unspecified affecting left nondominant side; Q21.1 Atrial septal defect; E66.2 Morbid (severe) obesity with alveolar hypoventilation; Z68.41 Body mass index [BMI] 40.0-44.9, adult; I13.0 Hypertensive heart and chronic kidney disease with heart failure and stage 1 through stage 4 chronic kidney disease, or unspecified chronic kidney disease; I50.20 Unspecified systolic (congestive) heart failure; E11.42 Type 2 diabetes mellitus with diabetic polyneuropathy; I48.91 Unspecified atrial fibrillation; J44.9 Chronic obstructive pulmonary disease, unspecified; J84.10 Pulmonary fibrosis, unspecified; Z66 Do not resuscitate; I11.0 Hypertensive heart disease with heart failure; E11.65 Type 2 diabetes mellitus with hyperglycemia; E11.22 Type 2 diabetes mellitus with diabetic chronic kidney disease; I08.1 Rheumatic disorders of both mitral and tricuspid valves; H53.2 Diplopia; R79.1 Abnormal coagulation profile; R47.81 Slurred speech; N18.9 Chronic kidney disease, unspecified; I25.10 Atherosclerotic heart disease of native coronary artery without angina pectoris; K58.9 Irritable bowel syndrome, unspecified; K21.9 Gastro-esophageal reflux disease without esophagitis; E78.1 Pure hyperglyceridemia; M25.512 Pain in left shoulder; M10.9 Gout, unspecified; F41.9 Anxiety disorder, unspecified; F32.9 Major depressive disorder, single episode, unspecified; Z77.22 Contact with and (suspected) exposure to environmental tobacco smoke (acute) (chronic); Z79.4 Long term (current) use of insulin; Z99.89 Dependence on other enabling machines and devices; I25.2 Old myocardial infarction; Z95.0 Presence of cardiac pacemaker; Z79.01 Long term (current) use of anticoagulants; Z79.51 Long term (current) use of inhaled steroids; Z79.52 Long term (current) use of systemic steroids; Z79.899 Other long term (current) drug therapy; Z88.8 Allergy status to other drugs, medicaments and biological substances; Z91.040 Latex allergy status; Z91.013 Allergy to seafood; Z82.49 Family history of ischemic heart disease and other diseases of the circulatory system
CPT/HCPCS: 36415; 70450; 71045; 80048; 80053; 80061; 81003; 82947; 83036; 83605; 83721; 83735; 84484; 85025; 85610; 85730; 93005; 93306; 93970; 94660; 99285; A9270-GY; C8929; G8978-GP-CK; G8979-GP-CI; J1644; J2997; J7512

== ENCOUNTER 2019-06-14 14:28 | Inpatient (IN) | payer MEDICARE ==
--- OUTSIDE RECORDS SUMMARY | 2019-06-14 14:41 | XMS REPORT | Summary of Care ---
:1940 Author Organization [facility] Address [address] [facility] [place] [address] Care Team Providers Name Role Phone January Lopez MD Primary Care Provider Reason for Referral Refer to Department Only (Routine) Status Reason Specialty Diagnoses / Referred By Referred To Procedures Contact Contact Pending Review Diagnoses Brainstem stroke (HCC) January Lopez MD [address] [place] [address] Scheduling Instructions Medicare Home Health: The puox-ce-lwse visit can be up to 90 days prior to the referral or within 30 days after the referral. The jaad-fq-xzzt visit must be related to the reason for which Home Health is needed. See [facility] Manual System - Medicare Benefit Policy under Additional Order Details. Reason for Visit Reason Comments Transitional Care Management f[place] [facility] [place] Encounter Details Date Type Department Care Team Description 06/02/2019 Office Visit [facility] Jessica Brainstem stroke (HCC) ( Primary Dx); Jodi Sin MD Atrial fibrillation, chronic (HCC); [address] [facility] Uncontrolled type 2 diabetes mellitus with complication, with long-term current use of insulin ([facility]); [place] [address] [place] [address] Ischemic cardiomyopathy [phone] Allergies Active Allergy Reactions Severity Noted Date Comments Egg Phospholipids, Egg Lecithin 10/20/2007 Keflex Swelling 10/20/2007 Latex Dermatologic Reaction 08/06/2016 Lovenox Hives 12/16/2011 Shell Fish Swelling 11/07/2008 Dofetilide Other High 12/16/2011 documented as of this encounter (statuses as of 06/02/2019) Medications Medication Sig Dispensed Refills Start Date End Date Status cyanocobalamin (B-12) 500 Take 500 mcg by 0 Active MCG Oral Tab mouth EVERY MORNING. Sartell-3 Fatty Acids (FISH Take 1,000 mg 0 [...] TABLET SR 12 HR TIMES DAILY NEEDED. Njlpvyhthlo-Fgrjfmvet-Ziebk Take 1 INHL by inhalation 1 Each [...] atrial directed which is fibrillation (HCC) 7.5mg Thu/Thu/Thu. 5mg remaining days of week metolazone (ZAROXOLYN) [...] Chronic atrial fibrillation (HCC), Nonischemic cardiomyopathy (HCC) rivaroxaban (XARELTO) 15 Take 15 mg by mouth 0 Active MG Oral Tab DAILY. aspirin (ASPIRIN 81) 81 Take 81 mg by mouth 0 Active MG Oral Chew Tab DAILY. Pravastatin Sodium 80 MG TAKE 1 TABLET BY 30 Tab 5 05/23/2019 06/02/20 Discontinued Oral Tab MOUTH EVERY DAY AT 19 2:00PM documented as of this encounter (statuses as of 06/02/2019) Active Problems Problem Noted Date Elective replacement indicated for pacemaker 03/11/2019 Mechanical breakdown of cardiac electronic device 02/24/2019 Overview: Added automatically from request for surgery [id number] Spinal stenosis of lumbar region with neurogenic [...] knee pain 07/01/2013 Pacemaker 04/12/2012 Overview: Inserted 2.20.[address] Pineda for Sinus node dysfunction Diabetes mellitus 07/03/2011 BMI 40.0-44.9, adult 03/13/2011 HTN (hypertension) 11/01/2010 COPD (chronic obstructive pulmonary disease) 11/01/2010 Overview: [employer] 2 lpm q 24 hrs. 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 with INR goal of 2.0-3.0 06/08/2008 Overview: Managed by: Talia Mathis Referring Provider: Sienna Indication: afib, chronic Target Range: 2.0-3.0 Duration: Indefinite Additional factors influencing anticoagulation: Additional factors influencing anticoagulation: CHADS2 score of 3 for age > 75, hypertension, diabetes [id number] score of 5 for age > 75, hypertension, diabetes, female gender Allopurinol increases warfarin effect Sartell 3 fatty acid increases bleeding risk Omeprazole [...] as of this encounter (statuses as of 06/02/2019) Resolved Problems Problem Noted Date Resolved Date Aftercare following joint replacement 11/03/2011 09/09/2012 Encounter for therapeutic drug monitoring 04/10/2010 11/18/2010 Diabetes mellitus type II 10/20/2007 07/03/2011 CAD (coronary artery disease) 05/24/2010 Overview: 40% LAD cath- 2007 documented as of this encounter (statuses as of 06/02/2019) Immunizations Name Administration Dates Next Due Depo [...] Sign Reading Time Taken Comments Blood Pressure 122/70 06/02/2019 2:37 PM EDT Pulse 76 06/02/2019 2:37 PM EDT Temperature 37.4 06/02/2019 2:37 C (99.4 PM EDT F) Respiratory Rate - - Oxygen Saturation 95% 06/02/2019 2:37 sitting on 2lpm of O2 PM EDT Inhaled Oxygen - - Concentration Weight 109.6 kg (241 lb 06/02/2019 2:37 11.2 oz) PM EDT Height - - Body Mass Index 43.5 05/18/2019 11:32 AM EDT documented in this encounter Patient Instructions Patient InstructionsJanuary Lopez MD - 06/02/2019 2:20 PM EDT1. Start physical therapy 2. Use walker for ambulation 3. Follow up on 06/27 as scheduled and as needed documented in this encounter Progress Notes January Lopez MD - 06/02/2019 2:20 PM EDT Patient: Emi Forte Date of Service: 06/02/2019 Subjective: Emi Forte is a 78-y.o. female who presents for Chief Complaint Patient presents with Transitional Care Management f[facility] [facility] [place]A TCM Statement. Review of the hospitalization: I am seeing for transition of care following hospitalization. The date of discharge was: 05/30/19 The discharge diagnosis was Suspected brain stem CVA. I reviewed the discharge summary, discharge instructions, and pertinent additional documentation obtained during hospitalization. I reconciled the medications. I also reviewed the Transition of Care documentation done by staff. Presented to [facility] on 04/3019 with complains of double vision and L sided weakness Patient is on Coumadin for chronic atrial fibrillation, but was sub therapeutic at presentation withINR 1.22. She was evaluated for tPA, but was not treated because of fast improvement of the symptoms Patient couldn't have MRI done due to pacemaker. CT of the brain - no acute findings. CMP - creatinine 2.6 which I slightly higher than patient's baseline. Seen by neurology. Recommended to change from Coumadin to Xarelto adjusted to the renal function ECHO-: EF - 40-45%, septal aneurysm with PFO, mildly reduced R ventricular function, dilated R atrium Compare to previous studies - LV function seems to be worse Coordination of care. (delete one and this phrase) - I am satisfied that appropriate referrals are in place to deal with the problems identified during hospitalization, and that the patient has adequate community resources and support in place. - Additional testing related to hospitalization was requested today: yes See orders. The current and discharge medications were reconciled by me, today The source document was hospital discharge summary Patient reports resolved double vision. Continues to have some L sided weakness , unsteady gait No weight gain, peripheral edema.SOB at the baseline Past Medical History: Diagnosis Date Anemia Dr. Ewing Asthma 10/20/2007 Mild, intermittent Chronic kidney disease, stage 4, severely decreased GFR (HCC) COPD (chronic obstructive pulmonary disease) ([facility]) 11/01/2010 Diabetes mellitus ([facility]) 10/20/2007 eye - 10/2014 , feet - 10/12 Diverticulitis 10/20/2007 History of DJD (degenerative joint disease) knees GERD (gastroesophageal reflux disease) 10/20/2007 HTN (hypertension) 11/01/2010 Hyperlipidemia Mitral regurgitation 10/20/2007 mild Paroxysmal atrial fibrillation (HCC) 10/20/2007 Peripheral neuropathy 10/20/2007 Secondary to diabetes Seasonal allergies 10/20/2007 Sleep apnea CPAP Outpatient Medications as of 06/02/2019 Medication Sig Dispense Refill Alcohol Swabs ([facility] [...] NOSTRIL ONE TIME A DAY1 Bottle 5 Dajauaahlui-Xajbtxbrq-Obangi (TRELEGY ELLIPTA) 100-62.5-25 MCG/INH Inhalation AEROSOL POWDER,BREATH [...] in both eyes DAILY. 5 mL 3 Sartell-3 Fatty Acids (FISH OIL) 1000 MG Oral [...] mouth DAILY. As directed which is 7.5mg Thu/Thu/Thu. 5mg remaining days of week 90 Tab 3 No current facility-administered medications on file as of 06/02/2019. Allergies Allergen Reactions Tikosyn [Dofetilide] Other Eggs [Egg Phospholipids, Egg Lecithin] Keflex Swelling Latex Dermatologic Reaction Lovenox Hives Shell Fish Swelling Review of Systems: All remaining review of systems was negative. Objective: BP 122/70 (BP Location: Right arm, Patient Position: Sitting) Pulse 76 Temp 99.4 F (37.4 C) Wt 241 lb 11.2 oz (109.6 kg) SpO2 95% BMI 43.5 kg/m2 GENERAL: alert, fatigued HEAD: normocephalic, without obvious abnormality EYES: conjunctivae/corneas clear. Pupils equal, round, reactive to light. Equal ocular movements intact.. THROAT: lips, mucosa, and tongue normal: teeth and gums normal NECK: supple, symmetrical, trachea midline LUNGS: clear to auscultation bilaterally HEART: irregularly irregular rhythm EXTREMITIES: no edema. NEUROLOGIC: Mental status: Alert, oriented, thought content appropriate. Cranial nerves: Grossly intact Sensory: normal Motor: No pronator drift, L upper leg strength 4/5 Coordination: finger to nose normal bilaterally Gait: unsteady ICD-9-CM ICD-10-CM 1. Brainstem stroke (HCC) Will refer for PT 434.91 I63.9 2. Atrial fibrillation, chronic (HCC) On Xarelto 427.31 I48.2 3. Uncontrolled type 2 diabetes mellitus with complication, with long-term current use of insulin (HCC) Pnd appointment with endocrinology 250.82 E11.8 V58.67 E11.65 Z79.4 4. Ischemic cardiomyopathy Cardiology appointment 07/13/19 414.8 I25.5 Patient Instructions 1. Start physical therapy 2. Use walker for ambulation 3. 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 [address] [place] [address] 08/04/2019 Office Visit Pulmonary Alirio Cabello MD [address] [place] [address] [phone] 08/17/2019 [facility] 12/06/2019 [facility] 04/06/2020 [facility] Name Type Priority Associated Diagnoses Order Schedule REFER TO HOME HEALTH Referral Routine Brainstem stroke (HCC) Ordered: 06/02 Health Maintenance Due Date Last Done Comments [...] Problems Progress Blood Pressure Blood Pressure HTN 122/70 No Jessica, < 140/90 (hypertension) (06/02/2019 January, 2:37 PM EDT) Note: Hypertension Care Plan Based on [...] Educational Resources: National Heart, Lung, & Blood [place] http://nhlbi.nih.gov/hbp/index.html The DASH Diet Eating Plan http://www.nhlbi.nih.gov/health/health-topics/ topics/dash/ Academy of Nutrition & DIetetics http://eatright.org National Smoking Cessation Site http://smokefree.gov Blood Pressure < Blood Pressure 122/70 (06/02/2019 No January Lopez, 140/90 2:37 PM EDT) Note: This is an individualized treatment (blood pressure) goal for Emi Forte: Displayed above (on the left) is your goal for blood pressure control. Your most recent blood pressure is also shown above, on the right. You should try to achieve blood pressures that are lower than your goal listed above (on the left). Weight increase vs. 18 CHF 13.7 (06/02/2019 2:37 PM No January Lopez MD mo min (lbs) [...] my blood sugar results (including dextrose sticks). PureWRX is safe and secure way for you [...] my blood sugar results (including dextrose sticks). Pure[employer] is safe and secure way for you [...] eating or drinking. record my weight daily. [employer] is safe and secure way for you [...] and any After Visit Summaries. Consume a la-yociq-ypcj diet Lifestyle No January Lopez MD Note: [...] of this encounter Implants Implanted Type Area District Gauger Device Shelf Model / Identifier Expiration Serial / Lot Date Accent Dual Chamber [id number] - [id number] Left: [employer] [employer] 02/26/2012 [id number] / Implanted: Qty: 1 on 11/06/2010 at [facility] [employer] [id number] / Lead Tendril # [id number]-52 - [id number] Left: ST SIM 07/28/2013 [id number] / Implanted: Qty: 1 on 11/06/2010 at [facility]/ [place] [id number] / ER Tendril Lead 2087tc/58cm - [id number] Left: [facility] SIM 10/28/20138TC/ 58CM / Implanted: Qty: 1 on 11/06/2010 at [facility] [id number] / Bone Cement, Double 80gm - [id number] Right: DEPUY [id number] / Implanted: Qty: 1 on 10/20/2011 at [facility] Knee / [id number] Tibial Plate Size 5 Nexgen - [id number] Right: LONA MONCADA 5980-47- 01 / Implanted: Qty: 1 on 10/20/2011 at [facility] K[employer] / [id number] Lps-Flex Option Femoral E Rt - [id number] Right: LONA MONCADA 5964-15 -52 / Implanted: Qty: 1 on 10/20/2011 at [facility] [employer] / [id number] Lps-Flex Taper Plugs - [id number] Right: LONA MONCADA / Implanted: Qty: 1 on 10/20/2011 at [facility] [employer] / [id number] Art Surface 12mm Green - [id number] Right: LONA MONCADA / Implanted: Qty: 1 on 10/20/2011 at [facility] [employer] / [id number] Assurity Mri [id number] Generator - [id number] ST. SIM 08/27/2020 [id number] / Implanted: Qty: 1 on 03/11/2019 by Talha Pineda MD at [facility] [id number] / documented as of this encounter Results Not on filedocumented in this encounter Visit Diagnoses Diagnosis Brainstem stroke (HCC) - Primary Unspecified cerebral artery occlusion with cerebral infarction Atrial fibrillation, chronic (HCC) Atrial fibrillation Uncontrolled type 2 diabetes mellitus with complication, with long-term current use of insulin (HCC) Ischemic cardiomyopathy Other specified forms of chronic ischemic heart disease documented in this encounter Insurance Payer Benefit Plan / Subscriber ID Effective Dates Phone Address Type Group [employer] MEDICARE EXCELL xxxxxxxxxxxx Effective for [employer] MEDICARE BLUE all dates PPO [phone]) Guarantor Name Account Type Relation to Date of Phone Billing Address Patient Emi Forte Personal/Family 1940 [address] [facility] (Home) [place], [place] [phone] (Work) documented as of this encounter Advance [...]
--- NOTE | 2019-06-14 17:41 | ED ---
Headache - HPI Summary HPI Summary: Patient from urgent care to the ED complaining of headache 4 days with episode of double vision in right eye this morning, increase in imbalance and confusion today. Denies trauma, fever, cough, sore throat, CP, SOB, N/V/V abdominal pain , change in urine, change in BM. Family states patient admitted to [facility] one week ago for TIA evaluation. Patient has been in rehabilitation since and steadily improving until today. Family states physical therapy told them she had a increase in imbalance today. Family states they also noticed increasing confusion, patient was slow to respond to them. Symptoms onset sometime this morning. Exact time unknown. Patient is on Xarelto. Medical history , DM, CHF , COPD, pulmonary fibrosis, stage IV kidney disease. - History Of Current Complaint Chief Complaint: EDHeadache Stated Complaint: SEVERE HEADACHE PER EMS Time Seen by Provider: 06/14/19 17:23 Hx Obtained From: Patient, Family/Hedis Abstractor Onset/Duration: Sudden Onset, Started hours ago Initially Headache Was: Moderate Currently Pain Is: Moderate Timing: Intermittent, Lasting:, Hours Character: Throbbing Location of Headache: Diffuse Aggravating Factor: Nothing Allevating Factors: Nothing Associated Signs And Symptoms: Negative - Allergies/Home Medications Allergies/Adverse Reactions: Allergies Allergy/AdvReac Type Severity Reaction Status Date / Time latex Allergy Swelling Verified 06/14/19 14:46 shellfish derived Allergy Swelling Verified 06/14/19 14:46 Of Face,Lips,& Throat cephalexin [From Keflex] AdvReac Mild Facial Verified 06/14/19 14:46 Redness/Flushing dofetilide [From Tikosyn] AdvReac Palpitation Verified 06/14/19 14:46 s enoxaparin [From Lovenox] AdvReac "blood too Verified 06/14/19 14:46 thin" NO MRIs - [facility] Allergy Severe NO MRIs - Uncoded 06/15/19 11:49 [facility] Home Medications: Home Medications Hydrocodone/Acetamin 10/325(NF [[place] 10/325 (NF)] 1 tab PO Q6H PRN 06/14/19 [ History Confirmed 06/14/19] Insulin Glargine,Hum.rec.anlog [Lantus Solostar] 100 unit SQ QPM 06/14/19 [ History Confirmed 06/14/19] Insulin Glargine,Hum.rec.anlog [Lantus Solostar] 120 unit SQ QAM 06/14/19 [ History Confirmed 06/14/19] Insulin Lispro [Humalog Kwikpen] 14 unit SUBCUT TID 06/14/19 [History Confirmed 06/14/19] Metolazone TAB* [Zaroxolyn TAB*] 2.5 mg PO DAILY 06/14/19 [History Confirmed ] Spironolactone (NF) [Spironolactone 50 MG (NF)] 50 mg PO DAILY 06/14/19 [ History Confirmed 06/14/19] guaiFENesin ER TAB [Mucinex*] 600 mg PO BID 06/14/19 [History Confirmed 06/14/19 ] PMH/Surg Hx/FS Hx/Imm Hx Endocrine/Hematology History: Reports: Hx Anticoagulant Therapy, Hx Blood Transfusions, Hx Diabetes, Hx Anemia, Other Endocrine/Hematological Disorders Cardiovascular History: Reports: Hx Angina, Hx Atrial Fibrillation, Hx Auto Implanted Cardiovert Defib, Hx Cardiomegaly, Hx Congestive Heart Failure, Hx Coronary Artery Disease, Hx Hypercholesterolemia, Hx Hypertension, Hx Myocardial Infarction, Hx Pacemaker/ICD, Hx Syncope Denies: Hx Aneurysm, Hx Angioplasty, Hx Cardiac Arrest, Hx Valvular Heart Disease Respiratory History: Reports: Hx Asthma, Hx Chronic Obstructive Pulmonary Disease (COPD) - pt reports 2L O2 via NC prn at home, Hx Pleural Effusion, Hx Pulmonary Edema, Hx Sleep Apnea, Other Respiratory Problems/Disorders - bronchitis, 2nd hand smoke exposure, pulmonary fibrosis GI History: Reports: Hx Diverticulosis, Hx Gall Bladder Disease, Hx Gastroesophageal Reflux Disease, Hx Irritable Bowel, Hx Obstructive Bowel, Other GI Disorders - Enlarged liver, polyps History: Reports: Hx Chronic Renal Failure, Hx Kidney Stones Denies: Hx Renal Disease Musculoskeletal History: Reports: Hx Arthritis, Hx Back Problems, Hx Gout Denies: Hx Osteoporosis Sensory History: Reports: Hx Cataracts, Hx Contacts or Glasses, Hx Vision Problem - blurry, Other Sensory Impairments - Neuropathy Denies: Hx Deafness, Hx Hearing Aid Opthamlomology History: Reports: Hx Cataracts, Hx Contacts or Glasses, Hx Vision Problem - blurry, Other Sensory Impairments - Neuropathy Neurological History: Reports: Hx Peripheral Neuropathy Denies: Hx Dementia, Hx Developmental Delay, Hx Headaches, Hx Migraine, Hx Nerve Disease, Hx Seizures, Hx Spinal Cord Injury, Hx Transient Ischemic Attacks (TIA), Other Neuro Impairments/Disorders Psychiatric History: Reports: Hx Anxiety, Hx Depression - Surgical History Surgery Procedure, Year, and Place: Cholecystectomy 29 years ago. Appy 29 years ago. HYSTERECTOMY 29 years ago. Pacemaker placement 2010 Hx Anesthesia Reactions: No - Immunization History Date of Tetanus Vaccine: Unk Date of Influenza Vaccine: Fall 2014 Immunizations Up to Date: Yes Infectious Disease History: No Infectious Disease History: Denies: Hx Clostridium Difficile, Hx Hepatitis, Hx Human Immunodeficiency Virus (HIV), Hx of Known/Suspected MRSA, Hx Shingles, Hx Tuberculosis, History Other Infectious Disease, Traveled Outside the [place] in Last 30 Days - Family History Known Family History: Positive: Cardiac Disease - Brother with DE at age 34 - Social History Alcohol Use: None Hx Substance Use: Yes Substance Use Type: Reports: None Substance Use Comment - Amount & Last Used: tramadol; oxycodone Hx Tobacco Use: No Smoking Status (MU): Never Smoked Tobacco Have You Smoked in the Last Year: No Review of Systems Positive: Fatigue Positive: Diplopia ENT: Negative Cardiovascular: Negative Respiratory: Negative Gastrointestinal: Negative Genitourinary: Negative Musculoskeletal: Negative Skin: Negative Positive: Headache, Weakness Psychological: Normal All Other Systems Reviewed And Are Negative: Yes Physical Exam - Summary Physical Exam Summary: Neuro exam normal. Abdomen soft nontender. Lungs clear to auscultation bilaterally. Triage Information Reviewed: Yes Vital Signs On Initial Exam: Initial Vitals BP 124/72 06/14/19 14:33 Vital Signs Reviewed: Yes Appearance: Positive: Well-Appearing Skin: Positive: Warm Head/Face: Positive: Normal Head/Face Inspection Eyes: Positive: Normal Neck: Positive: Supple Respiratory/Lung Sounds: Positive: Clear to Auscultation Cardiovascular: Positive: Normal Abdomen Description: Positive: Nontender Musculoskeletal: Positive: Normal Neurological: Positive: Normal Psychiatric: Positive: Normal AVPU Assessment: Alert - Zoar Coma Scale Best Eye Response: 4 - Spontaneous Best Motor Response: 6 - Obeys Commands Best Verbal Response: 5 - Oriented Coma Scale Total: 15 Diagnostics - Vital Signs Vital Signs Temp Pulse Resp BP Pulse Ox 06/14/19 17:00 71 19 98 06/14/19 16:43 73 20 117/52 100 06/14/19 16:00 76 28 97 06/14/19 15:43 75 20 118/68 98 06/14/19 15:14 77 20 142/88 96 06/14/19 15:00 76 20 97 06/14/19 14:38 98.8 F 78 20 124/72 96 06/14/19 14:33 124/72 - Laboratory Result Diagrams: 06/15/19 05:01 06/15/19 05:01 Lab Statement: Any lab studies that have been ordered have been reviewed, and results considered in the medical decision making process. Headache Course/Dx - Course Course Of Treatment: Patient from urgent care to the ED complaining of headache 4 days with episode of double vision in right eye this morning, increase in imbalance and confusion today. Denies trauma, fever, cough, sore throat, CP, SOB, N/V/V abdominal pain, change in urine, change in BM. Family states patient admitted to [facility] one week ago for TIA evaluation. Patient has been in rehabilitation since and steadily improving until today. Family states physical therapy told them she had a increase in imbalance today. Family states they also noticed increasing confusion, patient was slow to respond to them. Symptoms onset sometime this morning. Exact time unknown. Patient is on Xarelto. Medical history , DM, CHF, COPD, pulmonary fibrosis, stage IV kidney disease. Vital Signs within normal limits. WBC 11.5. BGL 301. Labs otherwise normal. Patient baseline. EKG paced rhythm. CT brain negative for acute process. Patient admitted to hospitalist for further evaluation. - Diagnoses Provider Diagnoses: Neurological symptoms Discharge ED - Sign-Out/Discharge Documenting (check all that apply): Patient Departure - Discharge Plan Condition: Fair Disposition: ADMITTED TO [facility] - Billing Disposition and Condition Condition: FAIR Disposition: Admitted to [facility] - Attestation Statements Provider Attestation: I was available for consult. This patient was seen by the JOE. The patient was not presented to, seen by, or examined by me. Vladislav Babin MD
[2019-06-14 18:13] LABS: Urine Appearance Clear; Urine Bilirubin Negative (Negative); Urine Blood Negative (Negative); Urine Color Straw; Urine Glucose 3+(>=500 mg/dL) (Negative); Urine Ketones Negative (Negative); Urine Nitrite Negative (Negative); Urine Protein Negative (Negative); Urine Specific Gravity 1.006 (1.010-1.030); Urine Urobilinogen Negative (Negative)
[2019-06-14 18:29] LABS: Hematocrit 36 % (35-47); Hemoglobin 11.9 g/dL (12.0-16.0); Mean Corpuscular HGB Conc 33 g/dL (31-36); Mean Corpuscular Hemoglobin 28 pg (27-31); Mean Corpuscular Volume 83 fL (80-97); Mean Platelet Volume 9.8 fL (7.4-10.4); Platelet Count 135 10^3/uL (150-450); Red Blood Count 4.31 10^6 /uL (3.70-4.87); Red Cell Distribution Width 20 % (10-15); White Blood Count 11.5 10^3/uL (3.5-10.8)
[2019-06-14 18:34] LABS: INR 1.06 (0.82-1.09)
[2019-06-14 18:46] LABS: Albumin/Globulin Ratio 1.2 (1-3); BUN/Creatinine Ratio 20.2 (8-20); C Reactive Protein 7.11 mg/L (<8.01); Calcium 9.2 mg/dL (8.6-10.3); EGFR African American 20.6 (>60); Globulin 3.3 g/dL (2-4); Total Bilirubin 0.4 mg/dL (0.2-1.0); Total Protein 7.3 g/dL (6.4-8.9)
[2019-06-14 19:01] LABS: ABS Basophils 0.1 10^3/ul (0-0.2); ABS Eosinophils 0.2 10^3/ul (0-0.6); ABS Lymphocytes 2.7 10^3/ul (1.0-4.8); ABS Neutrophils 6.6 10^3/ul (1.5-7.7); Eosinophil % 1.7 %; Lymphocyte % 23.3 %; Nucleated Red Blood Cells % 0.1
[2019-06-14 20:00] LABS: Potassium 4.2 mmol/L (3.5-5.0)
[2019-06-14] MEDS ORDERED: Acetaminophen TAB* 325 MG PO ONE (21:38)
[2019-06-14] MEDS ORDERED: HYDROcodone/ACETAMIN 5-325 MG* 1 TAB PO ONE ×2 (22:53)
[2019-06-14] MEDS ORDERED: Albuterol HFA INHALER* 8 gm MDI INH PRN (23:44)
[2019-06-14] MEDS ORDERED: Dicyclomine CAP* 10 MG PO PRN (23:44)
[2019-06-14] MEDS ORDERED: Dextrose 50% VIAL 50 ml IV PUSH PRN (23:58)
--- NOTE | 2019-06-15 03:00 | HP ---
CC: Dr. January Lopez * ADMISSION HISTORY AND PHYSICAL: DATE OF ADMISSION: 06/14/19 CHIEF COMPLAINT: Dizziness, blurry vision, double vision, and left-sided weakness. HISTORY OF PRESENT ILLNESS: This is a 78-year-old female with past medical history of morbid obesity; type 2 diabetes, on insulin; heart failure with reduced ejection fraction, last EF of 40%; coronary artery disease with a history of NC; COPD; AFib, on Xarelto; chronic kidney disease stage 4; anxiety; depression, recently admitted with TIA, thought to be a suspected brain stem stroke with resolution of symptom, comes in again with same exact symptoms the previous admission on 05/27/19 with dizziness, blurry and double vision, and left-sided weakness. The patient stated that she was in her usual state of health and was actually feeling much better as her symptoms completely resolved ; however, physical therapist who comes at home noticed that she was feeling dizzy and weak especially on her left side and was leaning towards the same left side. She stated that even though previous admission she had left-sided weakness, that had resolved and she was almost back to her baseline, but today she again had recurrence of the left-sided weakness. She also noticed blurry vision and double vision especially when she looked on the left side, which prompted her ER visit. The patient's symptoms resolved in about 30 minutes, after which all the symptoms had resolved and she was almost feeling back to baseline except for some mild left-sided weakness which was still persistent. The patient otherwise offers no chest pain, no nausea or vomiting, no shortness of breath. PAST MEDICAL HISTORY: Includes: 1. Heart failure with reduced ejection fraction of 40% to 45%, previously diagnosed patent foramen ovale on her more recent admission and a severe tricuspid regurg. 2. History of coronary artery disease with a history of NC. 3. COPD secondary to secondhand smoke versus component of asthma. 4. History of chronic kidney disease stage 4, stable creatinine. 5. History of pulmonary fibrosis. 6. Obstructive sleep apnea, on CPAP. 7. Obesity hypoventilation syndrome. 8. Atrial fibrillation, initially on Coumadin but recently switched to Xarelto with a history of permanent pacemaker placement. 9. Insulin-dependent type 2 diabetes. 10. History of hypertension. 11. Irritable bowel syndrome. 12. Gastroesophageal reflux disease. 13. Peripheral neuropathy likely diabetic neuropathy. 14. Anxiety. 15. Depression. PAST SURGICAL HISTORY: Includes: 1. Cholecystectomy. 2. Appendectomy. 3. Hysterectomy. 4. Permanent pacemaker insertion in 2009. HOME MEDICATIONS: The patient is on: 1. Albuterol p.r.n. 2. Demadex 40 mg every other day. 3. Spironolactone 50 mg oral daily. 4. Ropinirole 0.25 to 0.5 mg p.o. at bedtime. 5. Xarelto 50 mg every evening. 6. Lyrica 50 mg every morning. 7. Pravachol 80 mg oral daily. 8. Potassium chloride 20 mEq p.o. b.i.d. 9. MiraLAX 17 g packet oral daily. 10. Omeprazole 40 mg oral b.i.d. 11. [place]-3 fatty acids 1000 mg oral b.i.d. 12. Patanol 0.1% ophthalmic 2 drops both eyes daily. 13. Montelukast 10 mg oral daily. 14. Metoprolol 100 mg p.o. b.i.d. 15. Metolazone 2.5 mg oral daily. 16. Tradjenta 5 mg oral daily. 17. Humalog KwikPen 14 units subcutaneous t.i.d. 18. Lantus SoloSTAR 100 units at night and 120 units in the morning. 19. [place] 10/325 mg 1 tablet q.6 hours p.r.n. 20. Mucinex 600 mg p.o. b.i.d. 21. Fluticasone nasal spray 2 sprays both nares daily. 22. Bentyl 10 mg p.o. q.i.d. p.r.n. 23. Vitamin B12 500 mcg p.o. q. morning. 24. Vitamin D 2000 units oral daily. 25. Bisacodyl 5 mg p.o. b.i.d. 26. Aspirin 81 mg oral daily. 27. Allopurinol 100 mg oral daily. ALLERGIES: The patient is documented to have allergies to, LATEX, SHELLFISH, KEFLEX, TIKOSYN, and LOVENOX. SOCIAL HISTORY: The patient lives with her kids visiting nurse visits and physical therapy at home. Denies any alcohol or recreational drug use. Rarely uses alcohol and uses cane and a walker on an as needed basis, but otherwise is independent of her ADLs. She did sign DNR/DNI and her daughter Maria Guadalupe Ortiz is her healthcare proxy. The MOLST form was updated to reflect her wishes including she does not want to be on any tube feedings. FAMILY HISTORY: Noncontributory at her age but there is positive family history of cardiac disease in brother who had of an NC at age 34. REVIEW OF SYSTEMS: A 14-point review of systems did not reveal any new information other than what is mentioned in the HPI. PHYSICAL EXAMINATION GENERAL: The patient is awake, alert, and oriented x3, did not appear to be in any acute respiratory distress. VITAL SIGNS: BP was noted to be 130/76, heart rate 72, respiration rate 19, temperature 98.9, saturating 97% on room air. HEAD AND NECK: Atraumatic, normocephalic. Bilateral pupils are reactive. Oral mucosa was moist. Neck: Supple. No jugular venous distention. LUNGS: Clear to auscultation bilaterally. No wheezing, rhonchi, or rales. HEART: S1, S2, systolic murmur. ABDOMEN: Soft, nontender, nondistended. EXTREMITIES: No cyanosis, clubbing, or edema. NEUROLOGIC: The patient had minimal decreased strength in the left upper extremity, more evident, about 4/5 in strength but rest was noted to be normal. Sensation was intact. LABORATORY DATA: CBC showed mildly elevated white count of 11.5, hemoglobin shows mild anemia with hemoglobin of 11.9, hematocrit stable, platelet count was minimally decreased at 135. Coagulation profile was normal at 1.06. Comprehensive metabolic panel shows elevated glucose at 292. BUN elevated 55, creatinine at 2.27 which is her baseline. Bicarb elevated at 33, repeat glucose was noted to be 395. Two sets of troponin were negative. LFTs with normal limits. Urinalysis was negative for any leuk esterase or nitrite. There is elevated glucose in the urine. IMPRESSION: 1. This is a 78-year-old female with a history of diabetes, hypertension, dyslipidemia, atrial fibrillation, previous transient ischemic attacks, comes in again with another episode of transient ischemic attack. Again, we cannot do any further MRI from previous admission due to her pacemaker and cannot do any CT angio because of her renal dysfunction. We will monitor for now and perform neuro checks and consult Neurology in the morning regarding any further treatment plan on this patient. 2. History of atrial fibrillation. Restart her Xarelto. 3. History of obstructive sleep apnea. Restart her home CPAP. 4. History of asthma/chronic obstructive pulmonary disease. Restart her nebs. 5. History of diabetes. Restart her home dose of insulin and start insulin sliding scale and fingerstick monitoring. 6. History of depression, anxiety, and peripheral neuropathy. Restart home medications. 7. DVT prophylaxis: The patient is already on Xarelto. 8. Code status: DNR/DNI. MOLST form filled. [id number]/[id number] #: [id number] MTDD
[2019-06-15 05:25] LABS: Hematocrit 35 % (35-47); Hemoglobin 11.2 g/dL (12.0-16.0); Mean Corpuscular HGB Conc 32 g/dL (31-36); Mean Corpuscular Hemoglobin 26 pg (27-31); Mean Corpuscular Volume 84 fL (80-97); Mean Platelet Volume 9.7 fL (7.4-10.4); Platelet Count 131 10^3/uL (150-450); Red Blood Count 4.24 10^6 /uL (3.70-4.87); Red Cell Distribution Width 20 % (10-15)
[2019-06-15 05:43] LABS: BUN/Creatinine Ratio 21.1 (8-20); Calcium 9.2 mg/dL (8.6-10.3); EGFR Non-African American 18.2 (>60); Potassium 4.1 mmol/L (3.5-5.0)
[2019-06-15 05:53] LABS: ABS Basophils 0.1 10^3/ul (0-0.2); ABS Eosinophils 0.2 10^3/ul (0-0.6); ABS Lymphocytes 2.4 10^3/ul (1.0-4.8); ABS Monocytes 1.8 10^3/ul (0-0.8); ABS Neutrophils 5.4 10^3/ul (1.5-7.7); Eosinophil % 1.9 %; Lymphocyte % 24.4 %; Nucleated Red Blood Cells % 0.3
--- NOTE | 2019-06-15 07:35 | PN ---
Subjective Date of Service: 06/15/19 Interval History: HD 1 on 06/15 78 y/o F with h/o obesity, CAD, HFrEF(40%), pacemaker, DM(on insulin),HTN, AFib (on xarelto), CKD(stage 4), anxiety, depression, recent TIA presented presetned with dizziness, vision changes and left sided weakness which lasted for about 30 minute. Suspected TIA. Brain CT normal. MRi could not be done because of her pacemaker complains of some headache. no visual changes, vomiting or vertigo Objective Active Medications: Hydrocodone Bitart/Acetaminophen ([place] 10/325 (Nf)) 1 tab PO Q6H PRN PRN Reason: PAIN - MODERATE Albuterol (Ventolin Hfa Inhaler*) 2 puff INH Q4H PRN PRN Reason: SOB/WHEEZING Allopurinol (Zyloprim Tab*) 100 mg PO DAILY [facility] Aspirin (Aspirin 81 Mg Chew Tab*) 81 mg PO DAILY [facility] Atorvastatin Calcium (Lipitor*) 20 mg PO DAILY [facility]; Protocol Bisacodyl (Dulcolax Ec Tab*) 5 mg PO BID [facility] Cholecalciferol (Vitamin D Tab*) 2,000 units PO DAILY [facility] Cyanocobalamin (Vitamin B12 Tab*) 500 mcg PO QAM [facility] Dextrose (Dextrose 50% Vial 50 Ml*) 25 ml IV PUSH .FOR FS < 60 - SS PRN PRN Reason: FS < 60 Dicyclomine HCl (Bentyl Cap*) 10 mg PO QID PRN PRN Reason: PAIN - ABDOMINAL Fish Oil (Fish Oil (Nf)) 1,000 mg PO BID [facility]; Protocol Fluticasone Propionate (Flonase Nasal [place] 50mcg*) 2 spray BOTH NARES DAILY [facility] Insulin Glargine (Lantus(*)) 100 units SUBCUT QPM [facility] Insulin Glargine (Lantus(*)) 120 units SUBCUT QAM [facility] Insulin Human Lispro (Humalog*) 0 units SUBCUT ACHS [facility]; Protocol Metolazone (Zaroxolyn Tab*) 2.5 mg PO DAILY [facility] Metoprolol Succinate (Toprol Xl Tab*) 100 mg PO BID [facility] Montelukast Sodium (Singulair Tab*) 10 mg PO DAILY [facility] Olopatadine HCl (Patanol 0.1% Ophth (Nf)) 2 drop BOTH EYES DAILY [facility]; Protocol Pantoprazole Sodium (Protonix Tab*) 40 mg PO BID [facility] Polyethylene Glycol/Electrolytes (Miralax*) 17 gm PO DAILY [facility] Potassium Chloride (Klor Con Er Tab*) 20 meq PO BID [facility] Pregabalin (Lyrica Cap(*)) 50 mg PO QAM [facility] Rivaroxaban (Xarelto(*)) 15 mg PO QPM [facility] Ropinirole HCl (Requip Tab*) 0.25 mg PO BEDTIME [facility] Spironolactone (Aldactone Tab*) 50 mg PO DAILY [facility] Torsemide (Demadex*) 40 mg PO EVERY OTHER DAY [facility] Vital Signs - 8 hr 06/14/19 06/15/19 06/15/19 23:43 00:52 01:14 Temperature 97.9 F 97.7 F Pulse Rate 72 71 Respiratory 19 20 20 Rate Blood Pressure 130/76 125/79 107/57 (mmHg) O2 Sat by Pulse 97 98 Oximetry 06/15/19 03:15 Temperature 98.6 F Pulse Rate 71 Respiratory 18 Rate Blood Pressure 113/58 (mmHg) O2 Sat by Pulse 98 Oximetry Oxygen Devices in Use Now: Nasal Cannula Exam: Patient is lying on a bed with no acute distress. HEENT: Normal Lungs: clear vesicular sound heard with no added sound Heart: S1/S2 heard with no murmur; HR irregular Abdomen: soft nondistended and nontender Extremities: normal Neuro:alert, conscious and oriented. CN intact, normal sppech, motor and sensory function. Result Diagrams: 06/15/19 05:01 06/15/19 05:01 Assess/Plan/Problems-Billing Assessment: 78 y/o F with h/o obesity, CAD, HFrEF(40%), pacemaker, DM(on insulin),HTN, AFib (on xarelto), CKD(4), anxiety, depression, recent TIA presented presetned with dizziness, vision changes and left sided weakness which lasted for about 30 minute. Suspected TIA. Brain CT normal. carotid ultrasound normal - Patient Problems (1) TIA (transient ischemic attack) Current Visit: Yes Status: Acute Code(s): G45.9 - TRANSIENT CEREBRAL ISCHEMIC ATTACK, UNSPECIFIED SNOMED Code(s): 021457559 Comment: most likely posterior circulation; Brain Ct normal Cant do mRi because of her permanent pacemaker neurology following; carotid us didnot show significant stenosis on aspirin, statin (2) Atrial fibrillation Current Visit: No Status: Acute Code(s): I48.91 - UNSPECIFIED ATRIAL FIBRILLATION SNOMED Code(s): 85531991 Comment: - currently paced - continue metoprolol - changed xarrelto to eliquis 5 mg bid (3) Congestive heart failure (CHF) Current Visit: No Status: Acute Code(s): I50.9 - HEART FAILURE, UNSPECIFIED SNOMED Code(s): 37367294 Comment: -systolic CHF with EF 40-45% -no evidence of acute decompensation -continue torsemide, metoprolol, metolazone, spironolactone (4) Chronic renal disease, stage IV Current Visit: No Status: Acute Code(s): N18.4 - CHRONIC KIDNEY DISEASE, STAGE 4 (SEVERE) SNOMED Code(s): 979610392 Comment: - At baseline. creatinine2.5 - monitor renal function. (5) HTN (hypertension) Current Visit: No Status: Acute Code(s): I10 - ESSENTIAL (PRIMARY) HYPERTENSION SNOMED Code(s): 03561970 Comment: - Normotensive - Continue Metoprolol, metolazone, furosemide andd spironolactone (6) Type II diabetes mellitus Current Visit: No Status: Acute Comment: - Chronically uncontrolled. - A1c 9.5 on 05/27/2019. poorly controlled in high to 300s. SSI and insulin lantus consistent carbohydrate diet (7) DVT prophylaxis Current Visit: No Status: Acute Code(s): HEA6767 - SNOMED Code(s): 479366601 Comment: -on eliquis therapeutic dose (8) DNR (do not resuscitate) Current Visit: No Status: Acute Status and Disposition: Inpatient; neurology following Attending: Kalyn Hogan Attestation Documenting Resident: Estee Dubois Supervising Physician: Kalyn Hogan Attestation: This service has been performed in part by a resident under the direction of a teaching physician.I, Kalyn Hogan, performed the service, or was physically present during the critical, or feldman portions of the service, furnished by the resident. I participated in the management of the patient.
[2019-06-15] MEDS: Hydrocodone/Acetamin 10/325 1 TAB PO PRN ×2 (08:35→20:46)
[2019-06-15] MEDS: Insulin LISPRO* 1 UNITS UNIT SUBCUT SCH ×4 (08:36→20:47)
[2019-06-15] MEDS: Insulin GLARGINE(*) 1 UNITS UNIT SUBCUT SCH (08:38)
[2019-06-15] MEDS: Metolazone TAB* 5 MG PO SCH (08:39)
[2019-06-15] MEDS: Potassium Chlor TAB* 20 MEQ TAB.ER PO SCH ×2 (08:41→20:29)
[2019-06-15] MEDS: Cholecalciferol TAB* 1000 UNITS PO SCH (08:41)
[2019-06-15] MEDS: Allopurinol TAB* 100 MG PO SCH (08:42)
[2019-06-15] MEDS: Pantoprazole TAB * 40 MG TAB PO SCH ×2 (08:42→20:29)
[2019-06-15] MEDS: Aspirin 81 mg CHEW TAB* 81 MG TAB.CHEW PO SCH (08:42)
[2019-06-15] MEDS: Pregabalin CAP(*) 50 MG PO SCH (08:42)
[2019-06-15] MEDS: Metoprolol Succinate XL TAB* 100 MG PO SCH ×2 (08:42→20:29)
[2019-06-15] MEDS: Spironolactone TAB* 25 MG PO SCH (08:43)
[2019-06-15] MEDS: Atorvastatin* 20 MG TAB PO SCH (08:43)
[2019-06-15] MEDS: Cyanocobalamin TAB* 500 MCG PO SCH (08:44)
[2019-06-15] MEDS: Fluticasone NASAL SPRAY 50MCG* 16 gm SPRAY BTL BOTH NARES SCH (08:45)
[2019-06-15] MEDS: CMCS:OMEGA-3 FATTY ACIDS (NF) 1,000 MG CAP PO SCH ×2 (08:45→20:30)
[2019-06-15] MEDS: Polyethylene Glycol 3350* 17 GM PACKET PO SCH (08:46)
[2019-06-15] MEDS: Olopatadine 0.1% OPHTH (NF) 1 DROP BTL BOTH EYES SCH (08:46)
[2019-06-15] MEDS ORDERED: Montelukast Sodium TAB* 10 MG PO SCH (09:00)
[2019-06-15] MEDS: Bisacodyl EC TAB* 5 MG PO SCH ×2 (13:56→20:30)
--- NOTE | 2019-06-15 15:40 | CONS ---
NEUROLOGY CONSULTATION NOTE: DATE OF CONSULT: 06/15/19 CONSULTING PROVIDER: Dr. Hogan. REASON FOR CONSULT: Transient double vision and headaches. CHIEF COMPLAINT: Headaches. HISTORY OF PRESENT ILLNESS: Ms. Emi Forte is a pleasant 78-year-old right- handed female, who was recently evaluated by my colleague, Dr. Jorgito Rose, on 05/28/19 for episode of double vision and left-sided weakness. Luckily, her symptoms resolved. She was switched from Coumadin to Xarelto, but after reviewing his note, Dr. Rose had recommended apixaban therapy. The patient stated that she went home and was doing well. She was using the walker. However, she woke up in the middle of the night on Thursday with symptoms of a bad headache. The headache was a band sensation around her head. The headache radiated to the posterior region of the head. The pain was 8/10 in severity. She got up, but felt like she was going to fall backwards. She did not have any fall and she did not have any loss of consciousness. She had associated symptoms of double vision in the right eye when looking towards the right. The left eye felt blurry. She thought she was having some slurring of her speech. Also, she was starting to notice the left side of her body was slightly weaker than the right. The symptoms apparently just lasted for a few minutes. The following morning, the patient was brought into the ER for further evaluation. Currently, her NIH Stroke Scale is 0. PAST MEDICAL HISTORY: Chronic atrial fibrillation, pacemaker placement more than 10 years ago; COPD, on oxygen throughout the day; diabetes mellitus type 2 ; hypertension; chronic kidney disease, stage 4; prior history of myocardial infarction; history of congestive heart failure; pulmonary fibrosis; irritable bowel syndrome; gastroesophageal reflux disease; peripheral neuropathy; anxiety ; and depression. PAST SURGICAL HISTORY: Cholecystectomy, hysterectomy, pacemaker placement. MEDICATIONS: She has a long list and that includes: 1. Metoprolol 100 mg p.o. b.i.d. 2. Montelukast 10 mg p.o. daily. 3. Vitamin D supplements 2000 units p.o. daily. 4. Omeprazole 40 mg p.o. b.i.d. 5. Dicyclomine 10 mg p.o. 4 times daily. 6. Ropinirole 0.25-0.5 mg at bedtime. 7. Allopurinol 100 mg p.o. daily. 8. Albuterol 2 puffs inhaled every 4 hours as needed. 9. Linagliptin 5 mg p.o. daily. 10. Pravastatin 80 mg p.o. daily. 11. Potassium 20 mEq p.o. b.i.d. 12. MiraLAX. 13. [place]-3. 14. Olopatadine 2 drops both eyes daily. 15. Fluticasone 2 sprays both nares daily. 16. Cyanocobalamin 500 mcg p.o. q.a.m. 17. Bisacodyl 5 mg p.o. b.i.d. 18. Torsemide 40 mg p.o. every other day. 19. Pregabalin 50 mg p.o. q.a.m. 20. Aspirin 81 mg daily. 21. Rivaroxaban 15 mg p.o. q.p.m. 22. Metolazone 2.5 mg p.o. daily. 23. Insulin lispro 14 units subcu t.i.d. 24. Hydrocodone/acetaminophen 1 tablet p.o. every 6 hours as needed. 25. Guaifenesin 600 mg p.o. b.i.d. 26. Spironolactone 50 mg p.o. daily. 27. Insulin glargine 100 units subcutaneous at night. 28. Insulin glargine 120 units subcutaneous in the morning. ALLERGIES: LATEX, SHELLFISH DERIVATIVES, CEPHALEXIN, DOFETILIDE, ENOXAPARIN. FAMILY HISTORY: No family history of stroke or seizures. SOCIAL HISTORY: The patient lives with her sons. She does not smoke or drink alcohol. REVIEW OF SYSTEMS: A 14-point review of systems was obtained and otherwise negative except for what was mentioned in the HPI. PHYSICAL EXAM: Temperature of 98.1, pulse of 71, respiratory rate of 20, oxygen saturation of 99%, blood pressure of 113/61. General: Chronically ill- appearing obese female, in no acute distress. She is very camilla and pleasant. Head: Atraumatic, normocephalic without any obvious abnormality. No superficial temporalis artery tenderness. No jaw claudication. Eyes: Conjunctivae/corneas are clear. Neck is supple and symmetrical with no carotid bruits. Cardiovascular: Irregular rhythm and rate. Respiratory: Clear to auscultation bilaterally with no wheezing or rhonchi. Extremities: Normal range of motion with no cyanosis or hammertoes. Skin: No skin lesions or lacerations. Psych: Affect is broad, normal mood. Neurological Examination: Mental Status: Awake, alert, and oriented to person, place, time, and general circumstances. Her speech and language were assessed and found to be unremarkable. Cranial Nerves: Pupils are equal, round, and reactive to light. Extraocular muscles are intact. Confrontation testing is within normal range. Sensation is intact on the face bilaterally. There is no facial asymmetry. Tongue is symmetrical and midline with no atrophy or fasciculation. Motor Examination: She moves all 4 extremities against resistance symmetrically. Normal tone and bulk throughout. Reflexes trace throughout and absent at the ankles. Downgoing plantar responses. Coordination: Normal finger- to-nose and [id number] testing. Sensation: Normal light touch throughout. She does have a distal to proximal sensory gradient up to the ankles bilaterally. Gait: Wide based, required a walker to ambulate, but no ataxia. DIAGNOSTIC STUDIES/LAB DATA: WBC of 11.5, hemoglobin of 11.9, hematocrit of 36 , platelet count of 135,000. INR is 1.06. Sodium of 136, potassium 4.2, chloride of 97, carbon dioxide of 33, BUN of 55, creatinine of 2.72, BUN/ creatinine ratio of 20, glucose of 292 but then increased to 395 and has been hovering over the 300s. C-reactive protein 7.11. TSH and vitamin B12 are pending. CT of the head without contrast was personally reviewed and compared to the previous study. There is no evidence of acute intracranial abnormality. There are extensive moderate diffuse small vessel ischemic changes. ASSESSMENT AND RECOMMENDATIONS: Ms. Emi Forte is a 78-year-old female with chronic atrial fibrillation who was recently seen for similar symptoms on 05/28/19, who presented with double vision, headaches, left-sided weakness and reported dysarthria. The symptoms have resolved within less than 4 hours at the onset of symptoms. Overall, I suspect the patient continues to most likely have transient ischemic attacks, which are involving the posterior circulation. Given her weight, renally dosed Xarelto may not be the best option for her in regards to therapeutic and stroke prevention. Regards to the compliance, I completely agree that Xarelto would be a decent medication. However, I would prefer to use apixaban or Coumadin for multiple reasons. If we use apixaban, she will require the full dose 5 mg twice a day. Given her size, she may need the full anticoagulation effect. If we use Coumadin, we can continue monitoring the INR and confirm she is therapeutic. She did have symptoms last time with a subtherapeutic INR; therefore, we could have continued the Coumadin during that last hospitalization. I would recommend continuing statin and aspirin therapy as she is currently taking. 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 No need for DVT prophylaxis since she is already on anticoagulation therapy. Primary stroke prevention was discussed with the patient. In regards to her headaches, I suspect these are multifactorial with possibly obstructive sleep apnea or analgesic rebound headache are the most likely explanation. The headaches wake her up at night, thus I am concerned that she may have hypoxemia due to undiagnosed obstructive sleep apne. The headaches are clearly controlled with narcotic therapy, which certainly indicates that these could also be analgesic rebound headaches. She has no evidence of temporal arteritis or ICH. Continue treatment of her pain with her home medications. Outpatient evaluation for obstructive sleep apnea is recommended. The patient has hyperglycemia and her recommended serum glucose should be between 120 to less than 200. Please improve her glucose management. I have ordered a carotid ultrasound to evaluate for any vertebral retrograde flow, which would raise the suspicion for vertebrobasilar insufficiency. Keep her blood pressure within normotensive range. I discussed the above recommendations with Dr. Hogan. She agreed with the plan. I will sign off, but please contact me for any questions or concerns. I will follow up with the ordered results. [id number]/[facility] [place] #: [id number] MAGDALENA
[2019-06-15 15:49] LABS: TSH (Thyroid Stimulating Horm) 0.76 mcIU/mL (0.34-5.60)
[2019-06-15] MEDS ORDERED: Rivaroxaban TAB(*) 15 MG PO SCH (18:00)
[2019-06-15] MEDS ORDERED: Insulin GLARGINE(*) 1 UNITS UNIT SUBCUT SCH (18:00)
[2019-06-15] MEDS ORDERED: Senna TAB 8.6 mg* TAB PO PRN (18:31)
[2019-06-15] MEDS ORDERED: Magnesium Hydroxide LIQ* 30 ML UDC PO PRN (18:31)
[2019-06-15] MEDS: Apixaban* 5 MG TAB PO SCH (20:30)
[2019-06-15] MEDS ORDERED: Ropinirole TAB* 0.5 MG TAB PO SCH (21:00)
--- NOTE | 2019-06-16 07:41 | PN ---
Subjective Date of Service: 06/16/19 Interval History: HD 2 on 06/16 78 y/o F with h/o obesity, CAD, HFrEF(40%), pacemaker, DM(on insulin),HTN, AFib (on xarelto), CKD(stage 4), anxiety, depression, recent TIA presented presetned with dizziness, vision changes and left sided weakness which lasted for about 30 minute. Suspected TIA. Brain CT normal. MRi could not be done because of her pacemaker Carotid US normal; incidentally noted thyroid nodules NO acute overnight events VS stable; maintaining saturatation on 2L Feels well; mild headache; improving feels like going home Objective Active Medications: Hydrocodone Bitart/Acetaminophen ([place] 10/325 (Nf)) 1 tab PO Q6H PRN PRN Reason: PAIN - MODERATE Last Admin: 06/15/19 20:46 Dose: 1 tab Albuterol (Ventolin Hfa Inhaler*) 2 puff INH Q4H PRN PRN Reason: SOB/WHEEZING Allopurinol (Zyloprim Tab*) 100 mg PO DAILY [facility] Last Admin: 06/15/19 08:42 Dose: 100 mg Apixaban (Eliquis*) 5 mg PO BID [facility] Last Admin: 06/15/19 20:30 Dose: 5 mg Aspirin (Aspirin 81 Mg Chew Tab*) 81 mg PO DAILY [facility] Last Admin: 06/15/19 08:42 Dose: 81 mg Atorvastatin Calcium (Lipitor*) 20 mg PO DAILY [facility]; Protocol Last Admin: 06/15/19 08:43 Dose: 20 mg Bisacodyl (Dulcolax Ec Tab*) 5 mg PO BID [facility] Last Admin: 06/15/19 20:30 Dose: 5 mg Cholecalciferol (Vitamin D Tab*) 2,000 units PO DAILY [facility] Last Admin: 06/15/19 08:41 Dose: 2,000 units Cyanocobalamin (Vitamin B12 Tab*) 500 mcg PO QAM [facility] Last Admin: 06/15/19 08:44 Dose: 500 mcg Dextrose (Dextrose 50% Vial 50 Ml*) 25 ml IV PUSH .FOR FS < 60 - SS PRN PRN Reason: FS < 60 Dicyclomine HCl (Bentyl Cap*) 10 mg PO QID PRN PRN Reason: PAIN - ABDOMINAL Fish Oil (Fish Oil (Nf)) 1,000 mg PO BID [facility]; Protocol Last Admin: 06/15/19 20:30 Dose: 1,000 mg Fluticasone Propionate (Flonase Nasal [place] 50mcg*) 2 spray BOTH NARES DAILY [facility] Last Admin: 06/15/19 08:45 Dose: 2 spray Insulin Glargine (Lantus(*)) 100 units SUBCUT QPM [facility] Last Admin: 06/15/19 17:30 Dose: 100 units Insulin Glargine (Lantus(*)) 120 units SUBCUT QAM [facility] Last Admin: 06/15/19 08:38 Dose: 120 units Insulin Human Lispro (Humalog*) 0 units SUBCUT ACHS [facility]; Protocol Last Admin: 06/15/19 20:47 Dose: 6 units Magnesium Hydroxide (Milk Of Magnesia Liq*) 30 ml PO Q6H PRN PRN Reason: CONSTIPATION Last Admin: 06/16/19 07:31 Dose: 30 ml Metolazone (Zaroxolyn Tab*) 2.5 mg PO DAILY [facility] Last Admin: 06/15/19 08:39 Dose: 2.5 mg Metoprolol Succinate (Toprol Xl Tab*) 100 mg PO BID [facility] Last Admin: 06/15/19 20:29 Dose: 100 mg Olopatadine HCl (Patanol 0.1% Ophth (Nf)) 2 drop BOTH EYES DAILY [facility]; Protocol Last Admin: 06/15/19 08:46 Dose: Not Given Pantoprazole Sodium (Protonix Tab*) 40 mg PO BID [facility] Last Admin: 06/15/19 20:29 Dose: 40 mg Polyethylene Glycol/Electrolytes (Miralax*) 17 gm PO DAILY [facility] Last Admin: 06/15/19 08:46 Dose: 17 gm Potassium Chloride (Klor Con Er Tab*) 20 meq PO BID [facility] Last Admin: 06/15/19 20:29 Dose: 20 meq Pregabalin (Lyrica Cap(*)) 50 mg PO QAM [facility] Last Admin: 06/15/19 08:42 Dose: 50 mg Ropinirole HCl (Requip Tab*) 0.25 mg PO BEDTIME [facility] Last Admin: 06/15/19 20:28 Dose: 0.25 mg Senna (Senokot 8.6 Mg Tab*) 1 tab PO BEDTIME PRN PRN Reason: CONSTIPATION Last Admin: 06/15/19 20:29 Dose: 1 tab Spironolactone (Aldactone Tab*) 50 mg PO DAILY [facility] Last Admin: 06/15/19 08:43 Dose: 50 mg Torsemide (Demadex*) 40 mg PO EVERY OTHER DAY [facility] Vital Signs - 8 hr 06/16/19 03:42 Temperature 97.6 F Pulse Rate 70 Respiratory 16 Rate Blood Pressure 142/62 (mmHg) O2 Sat by Pulse 100 Oximetry Oxygen Devices in Use Now: Nasal Cannula Exam: Patient is lying on a bed with no acute distress. HEENT: Normal Lungs: clear vesicular sound heard with no added sound Heart: S1/S2 heard with no murmur; HR irregular Abdomen: soft nondistended and nontender Extremities: normal Neuro:alert, conscious and oriented. CN intact, normal speech, motor and sensory function. Result Diagrams: 06/15/19 05:01 06/16/19 08:25 Assess/Plan/Problems-Billing Assessment: 78 y/o F with h/o obesity, CAD, HFrEF(40%), pacemaker, DM(on insulin),HTN, AFib (on xarelto), CKD(4), anxiety, depression, recent TIA presented presetned with dizziness, vision changes and left sided weakness which lasted for about 30 minute. Suspected TIA. Brain CT normal. carotid ultrasound normal, incidently noted thyroid nodules - Patient Problems (1) TIA (transient ischemic attack) Status: Acute Code(s): G45.9 - TRANSIENT CEREBRAL ISCHEMIC ATTACK, UNSPECIFIED SNOMED Code(s): 535308986 Comment: most likely posterior circulation; Brain Ct normal Cant do mRi because of her permanent pacemaker neurology following; carotid us didnot show significant stenosis on aspirin, statin and eliquis 5 mg BID can be d/c today (2) Atrial fibrillation Status: Acute Code(s): I48.91 - UNSPECIFIED ATRIAL FIBRILLATION SNOMED Code( s): 04168713 Comment: - currently paced - continue metoprolol - changed xarrelto to eliquis 5 mg bid (3) Congestive heart failure (CHF) Status: Acute Code(s): I50.9 - HEART FAILURE, UNSPECIFIED SNOMED Code(s): 72228598 Comment: -systolic CHF with EF 40-45% -no evidence of acute decompensation -continue torsemide, metoprolol, metolazone, spironolactone (4) Chronic renal disease, stage IV Status: Acute Code(s): N18.4 - CHRONIC KIDNEY DISEASE, STAGE 4 (SEVERE) SNOMED Code(s): 509348624 Comment: - At baseline. creatinine2.5 - monitor renal function. (5) HTN (hypertension) Status: Acute Code(s): I10 - ESSENTIAL (PRIMARY) HYPERTENSION SNOMED Code(s) : 00178675 Comment: - Normotensive - Continue Metoprolol, metolazone, furosemide andd spironolactone (6) Type II diabetes mellitus Status: Acute Comment: - Chronically uncontrolled. - A1c 9.5 on 05/27/2019. poorly controlled in high to 300s. SSI and insulin lantus consistent carbohydrate diet (7) DVT prophylaxis Status: Acute Code(s): ZJO3652 - SNOMED Code(s): 245574424 Comment: -on eliquis therapeutic dose (8) DNR (do not resuscitate) Status: Acute Status and Disposition: Inpatient; neurology following; can be d/c Attending: Kalyn Hogan Attestation Documenting Resident: Estee Dubois Supervising Physician: Kalyn Hogan Attestation: This service has been performed in part by a resident under the direction of a teaching physician.I, Kalyn Hogan, performed the service, or was physically present during the critical, or feldman portions of the service, furnished by the resident. I participated in the management of the patient.
[2019-06-16] MEDS: Polyethylene Glycol 3350* 17 GM PACKET PO SCH (08:40)
[2019-06-16] MEDS: Metolazone TAB* 5 MG PO SCH (08:42)
[2019-06-16] MEDS: CMCS:OMEGA-3 FATTY ACIDS (NF) 1,000 MG CAP PO SCH (08:43)
[2019-06-16] MEDS: Metoprolol Succinate XL TAB* 100 MG PO SCH (08:43)
[2019-06-16] MEDS: Bisacodyl EC TAB* 5 MG PO SCH (08:43)
[2019-06-16] MEDS: Cyanocobalamin TAB* 500 MCG PO SCH (08:43)
[2019-06-16] MEDS: Aspirin 81 mg CHEW TAB* 81 MG TAB.CHEW PO SCH (08:43)
[2019-06-16] MEDS: Pantoprazole TAB * 40 MG TAB PO SCH (08:43)
[2019-06-16] MEDS: Allopurinol TAB* 100 MG PO SCH (08:43)
[2019-06-16] MEDS: Potassium Chlor TAB* 20 MEQ TAB.ER PO SCH (08:44)
[2019-06-16] MEDS: Fluticasone NASAL SPRAY 50MCG* 16 gm SPRAY BTL BOTH NARES SCH (08:44)
[2019-06-16] MEDS: Atorvastatin* 20 MG TAB PO SCH (08:44)
[2019-06-16] MEDS: Apixaban* 5 MG TAB PO SCH (08:45)
[2019-06-16] MEDS: Cholecalciferol TAB* 1000 UNITS PO SCH (08:45)
[2019-06-16] MEDS: Pregabalin CAP(*) 50 MG PO SCH (08:46)
[2019-06-16] MEDS: Spironolactone TAB* 25 MG PO SCH (08:46)
[2019-06-16] MEDS: Insulin GLARGINE(*) 1 UNITS UNIT SUBCUT SCH (08:47)
[2019-06-16] MEDS: Insulin LISPRO* 1 UNITS UNIT SUBCUT SCH ×2 (08:47→13:34)
[2019-06-16] MEDS: Olopatadine 0.1% OPHTH (NF) 1 DROP BTL BOTH EYES SCH (08:47)
[2019-06-16 09:00] LABS: CO2 Carbon Dioxide 26 mmol/L (22-32); Calcium 9.5 mg/dL (8.6-10.3); Chloride 98 mmol/L (101-111); Magnesium 2.9 mg/dL (1.9-2.7); Sodium 133 mmol/L (135-145)
[2019-06-16] MEDS ORDERED: Torsemide TAB* 20 MG PO SCH (09:00)
[2019-06-16 09:05] LABS: BUN/Creatinine Ratio 21.4 (8-20); Blood Urea Nitrogen 44 mg/dL (6-24); EGFR African American 28.3 (>60); EGFR Non-African American 23.4 (>60); Glucose 200 mg/dL (70-100)
[2019-06-16 09:25] LABS: Anion Gap 9 mmol/L (2-11)
--- NOTE | 2019-06-16 13:10 | PN ---
Subjective Date of Service: 06/16/19 Length of Stay: 2 Days Neurology is following for suspected TIA. Interval History: She feels well. There has been no recurrence of the double vision. She denied any new weakness. She wants to go home. She is able to walk to the bathroom with a walker. Eliquis was started yesterday. She is tolerating the medication without any side effects. Carotid ultrasound: no hemodynamically stenosis is noted in either ICA. bilateral vertebral arteries demonstrated antegrade flow. Review of Systems: Denied CP, SOB, or palpitations. Objective Active Medications: Hydrocodone Bitart/Acetaminophen ([place] 10/325 (Nf)) 1 tab PO Q6H PRN PRN Reason: PAIN - MODERATE Last Admin: 06/15/19 20:46 Dose: 1 tab Albuterol (Ventolin Hfa Inhaler*) 2 puff INH Q4H PRN PRN Reason: SOB/WHEEZING Allopurinol (Zyloprim Tab*) 100 mg PO DAILY [facility] Last Admin: 06/16/19 08:43 Dose: 100 mg Apixaban (Eliquis*) 5 mg PO BID [facility] Last Admin: 06/16/19 08:45 Dose: 5 mg Aspirin (Aspirin 81 Mg Chew Tab*) 81 mg PO DAILY [facility] Last Admin: 06/16/19 08:43 Dose: 81 mg Atorvastatin Calcium (Lipitor*) 20 mg PO DAILY [facility]; Protocol Last Admin: 06/16/19 08:44 Dose: 20 mg Bisacodyl (Dulcolax Ec Tab*) 5 mg PO BID [facility] Last Admin: 06/16/19 08:43 Dose: 5 mg Cholecalciferol (Vitamin D Tab*) 2,000 units PO DAILY [facility] Last Admin: 06/16/19 08:45 Dose: 2,000 units Cyanocobalamin (Vitamin B12 Tab*) 500 mcg PO QAM [facility] Last Admin: 06/16/19 08:43 Dose: 500 mcg Dextrose (Dextrose 50% Vial 50 Ml*) 25 ml IV PUSH .FOR FS < 60 - SS PRN PRN Reason: FS < 60 Dicyclomine HCl (Bentyl Cap*) 10 mg PO QID PRN PRN Reason: PAIN - ABDOMINAL Fish Oil (Fish Oil (Nf)) 1,000 mg PO BID [facility]; Protocol Last Admin: 06/16/19 08:43 Dose: 1,000 mg Fluticasone Propionate (Flonase Nasal [place] 50mcg*) 2 spray BOTH NARES DAILY [facility] Last Admin: 06/16/19 08:44 Dose: 2 spray Insulin Glargine (Lantus(*)) 100 units SUBCUT QPM [facility] Last Admin: 06/15/19 17:30 Dose: 100 units Insulin Glargine (Lantus(*)) 120 units SUBCUT QAM [facility] Last Admin: 06/16/19 08:47 Dose: 120 units Insulin Human Lispro (Humalog*) 0 units SUBCUT ACHS [facility]; Protocol Last Admin: 06/16/19 08:47 Dose: 6 units Magnesium Hydroxide (Milk Of Magnesia Liq*) 30 ml PO Q6H PRN PRN Reason: CONSTIPATION Last Admin: 06/16/19 07:31 Dose: 30 ml Metolazone (Zaroxolyn Tab*) 2.5 mg PO DAILY [facility] Last Admin: 06/16/19 08:42 Dose: 2.5 mg Metoprolol Succinate (Toprol Xl Tab*) 100 mg PO BID [facility] Last Admin: 06/16/19 08:43 Dose: 100 mg Olopatadine HCl (Patanol 0.1% Ophth (Nf)) 2 drop BOTH EYES DAILY [facility]; Protocol Last Admin: 06/16/19 08:47 Dose: Not Given Pantoprazole Sodium (Protonix Tab*) 40 mg PO BID [facility] Last Admin: 06/16/19 08:43 Dose: 40 mg Polyethylene Glycol/Electrolytes (Miralax*) 17 gm PO DAILY [facility] Last Admin: 06/16/19 08:40 Dose: 17 gm Potassium Chloride (Klor Con Er Tab*) 20 meq PO BID [facility] Last Admin: 06/16/19 08:44 Dose: 20 meq Pregabalin (Lyrica Cap(*)) 50 mg PO QAM [facility] Last Admin: 06/16/19 08:46 Dose: 50 mg Ropinirole HCl (Requip Tab*) 0.25 mg PO BEDTIME [facility] Last Admin: 06/15/19 20:28 Dose: 0.25 mg Senna (Senokot 8.6 Mg Tab*) 1 tab PO BEDTIME PRN PRN Reason: CONSTIPATION Last Admin: 06/15/19 20:29 Dose: 1 tab Spironolactone (Aldactone Tab*) 50 mg PO DAILY [facility] Last Admin: 06/16/19 08:46 Dose: 50 mg Torsemide (Demadex*) 40 mg PO EVERY OTHER DAY [facility] Last Admin: 06/16/19 08:45 Dose: 40 mg Vital Signs 06/15/19 06/15/19 06/15/19 19:15 20:00 20:46 Temperature 97 F Pulse Rate 71 Respiratory 16 16 16 Rate Blood Pressure 116/74 (mmHg) O2 Sat by Pulse 98 Oximetry 06/15/19 06/16/19 06/16/19 22:50 03:42 07:47 Temperature 97.6 F 97.6 F Pulse Rate 70 71 Respiratory 18 16 20 Rate Blood Pressure 142/62 154/66 (mmHg) O2 Sat by Pulse 100 100 Oximetry 06/16/19 06/16/19 06/16/19 07:51 08:46 11:30 Temperature Pulse Rate Respiratory 20 20 18 Rate Blood Pressure (mmHg) O2 Sat by Pulse Oximetry Intake and Output Last 24 Hours 06/14/19 06/15/19 06/16/19 06/17/19 06:59 06:59 06:59 06:59 Intake Total 240 2320 Output Total 0 Balance 240 2320 Weight 247 lb 3.2 oz Intake: Oral 240 2320 Output: Urine 0 Other: Estimated Void Large Oxygen Devices in Use Now: Nasal Cannula Neurology Exam: General: Chronic ill appearing obese female in no distress. HEENT: Normocephelic/atraumatic, sclera anicteric, mucous membranes moist Extremities: No clubbing, cyanosis, or edema Neurological Findings: Awake, alert, and oriented to person, place, and time. Speech: fluent without dysarthria, repetition intact Cranial Nerve: PERRL, EOM intact, VFF, no nystagmus, face symmetric bilaterally , facial sensation intact Motor: moves all 4 extremities to command and against gravity symmetrically. Sensation: intact to LT/PP bilaterally upper and lower extremities Deep Tendon Reflex: trace throughout, absent at the knees and ankles. Finger to nose intact. Gait: not assessed Result Diagrams: 06/15/19 05:01 06/16/19 08:25 Assessment/Plan 1. Recurrent TIA like symptoms involving the posterior circulation (double vision, vertigo, and lateralized weakness) - symptoms resolved. NIHSS 0. CT head is negative for acute stroke. We cannot do an MRI due to incompatible pacemaker. Chose not to proceed with CTA due to VALERIA stage IV (the risk outweighs the benefit). - On Eliquis. Discussed with the patient regarding the risk of bleeding while on Eliquis and aspirin therapies. Also, I educated her about fall precautions. - ?Pending physical therapy's evaluation Follow-up with Dr. Rose in 6-8 weeks. We will arrange an appointment.
[2019-06-16 16:53] VITALS: BP 127/75
--- NOTE | 2019-06-16 22:06 | DS ---
CC: January Lopez MD; Dr. Goncalves * DISCHARGE SUMMARY: DATE OF ADMISSION: 06/14/19 DATE OF DISCHARGE: 06/15/19 PRIMARY CARE PHYSICIAN: January Lopez MD PRIMARY DIAGNOSES: 1. Transient ischemic attack. 2. Chronic daily headache, likely from medication use and untreated obstructive sleep apnea. 3. Constipation, likely from opioid use and low fiber diet. SECONDARY DIAGNOSES: 1. Heart failure with reduced ejection fraction. 2. Coronary artery disease with history of myocardial infarction. 3. Chronic obstructive pulmonary disease. 4. Atrial fibrillation, previously on warfarin and rivaroxaban. 5. Uncontrolled insulin dependent diabetes mellitus. 6. Obesity hypoventilation syndrome. 7. Obstructive sleep apnea. 8. Chronic kidney disease. 9. Hypertension. 10. Irritable bowel syndrome. 11. Peripheral neuropathy. 12. Anxiety and depression. CONSULTS: Dr. Goncalves of Neurology. DISCHARGE MEDICATIONS: 1. Apixaban 5 mg twice a day. 2. Torsemide 40 mg every other day. 3. Metolazone 2.5 mg daily. 4. Spironolactone 50 mg daily. 5. Hydrocodone/acetaminophen 10/325 every 6 hours as needed for pain. 6. Aspirin 81 mg daily. 7. Glargine insulin 120 units in the morning and 100 units in the evening. 8. Insulin lispro 14 units 3 times a day. 9. Linagliptin 5 mg daily. 10. Metoprolol 100 mg twice a day. 11. Pravastatin 80 mg daily. 12. Pregabalin 50 mg daily. 13. Ropinirole 0.5 at bedtime. 14. Albuterol 2 puffs every 4 hours as needed for shortness of breath. 15. Omeprazole 40 mg twice a day. 16. Montelukast 10 mg daily. 17. Guaifenesin 600 mg twice a day as needed for cough. 18. Fluticasone 2 sprays to both nares daily. 19. Dicyclomine 10 mg 4 times a day as needed for abdominal pain. 20. Vitamin B12 500 mcg daily. 21. Vitamin D 2000 units daily. 22. Senna 8.6 mg at bedtime as needed for constipation. 23. Bisacodyl 5 mg twice a day. 24. MiraLAX 17 g daily. HISTORY OF PRESENT ILLNESS: Ms. Forte is a 78-year-old woman with morbid obesity; type 2 diabetes, on insulin; heart failure with reduced ejection fraction; CAD with a history of HI; COPD; SUKH, refuses home CPAP; AFib, on Xarelto; CKD stage 4; anxiety; depression, who had a recent admission 2 weeks ago for TIA, thought to be a suspected brain stem stroke with resolution of symptoms, who re-presents with the same symptoms from her prior admission on . She experienced dizziness, blurry vision and left-sided weakness with an acute onset. She was in her normal state of health before that; however, home physical therapist had noticed that she had been feeling dizzy and weak especially on her left side and was leaning towards the same left side. The patient stated that even though for previous admission she had left-sided weakness that had resolved and she was mostly back to her baseline, but today she again had recurrence of the left-sided weakness especially with blurry vision, double vision, especially when she looked to the left side which prompted her ER visit. The patient's symptoms lasted for approximately 30 minutes and have all resolved by the time of her presentation to [facility]. HOSPITAL COURSE: The patient was admitted for neurology consult and close monitoring of neuro exam. Treatment team investigated ability for pacemaker to tolerate MRI, but it was determined that her pacemaker was not MRI compatible. It was also not possible to do a CTA given her significant kidney impairment. Neurology consult was performed on the morning after admission and it was recommended that she switch from rivaroxaban to apixaban for prevention of further cerebrovascular events. It was thought that apixaban would provide a full anticoagulation effect. Warfarin would also be recommended, however, the patient has had issues with compliance in the past and has previously presented with low INRs. As her symptoms resolved by the next morning, PT and OT evaluations were cancelled. The patient has also complained of chronic daily headache throughout admission stating that this has been going on for several months. It was thought that her symptoms were likely from untreated obstructive sleep apnea. The patient reports she has had a sleep study in the past, but was unable to tolerate her CPAP mask as it caused dry mucous membranes and bloody nose. She is not sure if she had heated and humidified air on this CPAP machine , which she is encouraged to explore for this option in the future. She may also have a component of a medication overuse headache as she takes significant amounts of hydrocodone/acetaminophen for her issues of chronic pain. The patient was encouraged to pursue nonmedical therapies for pain management such as psychotherapy, physical therapy, or topicals. Her constipation was also addressed this admission. The patient states that she eats a diet high in fiber ; however, on morning of discharge, the patient was refusing to eat the high fiber food that was brought to her instead demanding pancakes, sausage, and eggs. She was educated on relationship between poor diet and constipation as well as opioid use and constipation and was again encouraged to try and use less opioids. With initiation of senna, she was able to have bowel movement during admission. PERTINENT STUDIES AND LABS: CBC with hemoglobin 11.2 which was her baseline with MCV 83. Sodium 133, which is near the patient's baseline, with creatinine 2.06. B12 of 698. TSH 0.76. Brain CT with no acute intracranial pathology, mild mucosal thickening of the paranasal sinuses, other chronic findings such as small vessel ischemic change, no intracranial hemorrhage or extraaxial fluid collection. Carotid Doppler study was without hemodynamically significant stenosis in either ICA. DISCHARGE PLAN: The patient is to follow closely with her primary care physician and she will also be referred for visiting nurse service for medication management and ongoing chronic disease management and monitoring. She should be referred to Neurology or GI if her symptoms of chronic headache and constipation persist. Her medications should be continued as above with the following notable changes. Her anticoagulation was switched from rivaroxaban to apixaban. She was also prescribed senna which worked well for her in the hospital. It seems she does not take Dulcolax at home, but instead stakes docusate. She was encouraged to eat diet low in sugars and processed carbohydrates as well as high-fiber foods to help with her blood glucose control and issues with constipation. Her and her family members at bedside were given return precautions which include but are not limited to occurrence of focal neuro deficits, slurred speech, fever, chest pain, or severe headache. She is to resume activity as tolerated. DISPOSITION: To home. CONDITION: Improved. TIME SPENT: Approximately 60 minutes was spent on discharge of this patient, more than half of which was spent at bedside for interview and exam over care coordination. [id number]/[facility] #: [id number] [place]
== END 2019-06-16 13:45 | disposition home health service (06) | DRG 69 ==
LOC: ED 14:28 → MEDTELE 23:37
PROVIDERS: ADMIT Internal Medicine; ATTEND Internal Medicine
DX: G45.9 Transient cerebral ischemic attack, unspecified (principal); I50.22 Chronic systolic (congestive) heart failure; N18.4 Chronic kidney disease, stage 4 (severe); I13.0 Hypertensive heart and chronic kidney disease with heart failure and stage 1 through stage 4 chronic kidney disease, or unspecified chronic kidney disease; E66.2 Morbid (severe) obesity with alveolar hypoventilation; Z68.41 Body mass index [BMI] 40.0-44.9, adult; E78.00 Pure hypercholesterolemia, unspecified; I25.10 Atherosclerotic heart disease of native coronary artery without angina pectoris; J44.9 Chronic obstructive pulmonary disease, unspecified; J84.10 Pulmonary fibrosis, unspecified; K21.9 Gastro-esophageal reflux disease without esophagitis; K57.90 Diverticulosis of intestine, part unspecified, without perforation or abscess without bleeding; K58.1 Irritable bowel syndrome with constipation; M19.90 Unspecified osteoarthritis, unspecified site; M10.9 Gout, unspecified; E11.42 Type 2 diabetes mellitus with diabetic polyneuropathy; F41.9 Anxiety disorder, unspecified; I48.2 Chronic atrial fibrillation; E11.65 Type 2 diabetes mellitus with hyperglycemia; F32.9 Major depressive disorder, single episode, unspecified; E11.36 Type 2 diabetes mellitus with diabetic cataract; K59.09 Other constipation; T40.2X5A Adverse effect of other opioids, initial encounter; R40.2362 Coma scale, best motor response, obeys commands, at arrival to emergency department; R40.2142 Coma scale, eyes open, spontaneous, at arrival to emergency department; G44.40 Drug-induced headache, not elsewhere classified, not intractable; E04.2 Nontoxic multinodular goiter; R29.700 NIHSS score 0; G89.29 Other chronic pain; Z66 Do not resuscitate; R40.2252 Coma scale, best verbal response, oriented, at arrival to emergency department; E11.22 Type 2 diabetes mellitus with diabetic chronic kidney disease; Z95.0 Presence of cardiac pacemaker; Z90.49 Acquired absence of other specified parts of digestive tract; Z90.710 Acquired absence of both cervix and uterus; Z88.8 Allergy status to other drugs, medicaments and biological substances; Z88.1 Allergy status to other antibiotic agents; Z91.040 Latex allergy status; Z91.013 Allergy to seafood; Z82.49 Family history of ischemic heart disease and other diseases of the circulatory system; I25.2 Old myocardial infarction; Y92.009 Unspecified place in unspecified non-institutional (private) residence as the place of occurrence of the external cause; Z79.01 Long term (current) use of anticoagulants; Z79.82 Long term (current) use of aspirin; Z79.4 Long term (current) use of insulin; Z86.73 Personal history of transient ischemic attack (TIA), and cerebral infarction without residual deficits
CPT/HCPCS: 36415; 70450; 80048; 80053; 81003; 82607; 83735; 84443; 84484; 85025; 85610; 86140; 93005; 93880; 99284; A9270-GY

== ENCOUNTER 2019-07-15 14:54 | Emergency (ER) | payer MEDICARE ==
--- OUTSIDE RECORDS SUMMARY | 2019-07-15 15:27 | XMS REPORT | Summary of Care ---
:[address] [facility] Address [address] [facility] [place] [address] Care Team Providers Name Role Phone January Lopez Primary Care Provider Kiarra Benavidez plate cleaner Reason for Visit Reason Comments Transitional Care Management TO [facility] visit , pt was told by S nurse to not take spironolatone Encounter Details Date Type Department Care Team Description 06/27/2019 Office Visit [facility] Nikothuy, TIA (transient ischemic attack) (Primary Dx); Practice MD January Uncontrolled type 2 diabetes mellitus with complication, with long-term current use of insulin (HCC); [address] Cardiomyopathy, unspecified type (HCC) [place] [address] [place] [address] [phone] Allergies Active Allergy Reactions Severity Noted Date Comments Egg Phospholipids, Egg Lecithin 10/20/2007 Keflex Swelling 10/20/2007 Latex Dermatologic Reaction 08/06/2016 Lovenox Hives 12/16/2011 Shell Fish Swelling 11/07/2008 Dofetilide Other High 12/16/2011 documented as of this encounter (statuses as of 06/27/2019) Medications Medication Sig Dispensed Refills Start Date End Date Status cyanocobalamin (B-12) 500 Take 500 mcg by 0 Active MCG Oral Tab mouth EVERY MORNING. [place]-3 Fatty Acids (FISH Take 1,000 mg 0 [...] polyethylene glycol Take 1 PKT by mouth DAILY. 30 Packet 4 04/27/2018 Active (MIRALAX) Oral Pack ropinirole (REQUIP) 0.25 MG Take 1-2 Tabs by mouth 60 Tab 0 05/17/2018 Active Oral Tab EVERY BEDTIME. Blood Glucose Monitoring USE DIRECTED 1 Each 0 07/14/2018 Active Suppl (FREESTYLE LITE) Does not apply Device Blood Glucose Monitor 1 Device by Does not apply 1 Device 0 07/21/2018 Active Software Does not apply route DIRECTED. Device Insurance preferred. E11.9 [...] Nasal Suspension NOSTRIL ONE TIME A DAY Olopatadine 0.1 % Place 2 Drops in both eyes 5 mL 3 10/15/2018 Active Ophthalmic Solution DAILY. guaifenesin (MUCINEX) 600 Take 600 mg by mouth TWO 0 11/15/2018 Active MG Oral TABLET SR 12 HR TIMES DAILY NEEDED. Rndjweeumwk-Kxatejatb-Eupms Take 1 INHL by inhalation 1 Each 5 11/18/2018 Active t (TRELEGY ELLIPTA) DAILY. 100-62.5-25 MCG/INH Inhalation AEROSOL POWDER, BREATH ACTIVATED Pravastatin Sodium 80 MG Take 80 mg by mouth DAILY. 0 Active Oral Tab Insulin Pen Needle (SURE Inject 1 Each beneath the 155 Each 2 12/09/2018 Active COMFORT PEN NEEDLES) 30G X skin FIVE TIMES DAILY. 8 MM Does not apply Misc allopurinol (ZYLOPRIM) 100 Take 1 Tab by mouth DAILY. 30 Tab 5 12/13/2018 Active MG Oral Tab montelukast (SINGULAIR) 10 TAKE 1 TABLET BY MOUTH 30 Tab 5 12/22/2018 Active MG Oral Tab EVERY DAY potassium chloride (K-DUR) TAKE 1 TABLET BY MOUTH TWO 60 Tab 5 01/27/2019 Active 20 MEQ Oral Tab TIMES DAILY CRIndications: History of low potassium [...] Patient taking differently: 90-115 Units Subcutaneous BID, 120 units am and 100 units pm, Reported on 06/27/2019 11:35 AM metoprolol succinate TAKE 1 TABLET 60 Tab 5 05/23/2019 Active (TOPROL XL) 100 MG BY MOUTH TWO Oral TABLET SR 24 TIMES DAILY HRIndications: Chronic atrial fibrillation, Nonischemic cardiomyopathy (HCC) aspirin (ASPIRIN 81) Take 81 mg by 0 Active 81 MG Oral Chew Tab mouth DAILY. Cholecalciferol Take 2,000 mg 60 Cap 5 06/14/2019 Active (VITAMIN D3) 1000 by mouth DAILY. units Oral Cap HYDROcodone-acetaminop Take 1 Tab by 90 Tab 0 06/22/2019 Active hen (NORCO) 10-325 MG mouth EVERY SIX Oral Tab HOURS NEEDED (pain). Max Daily Amount: 4 Tabs. metolazone (ZAROXOLYN) Take 1 Tab by 30 Tab 0 06/24/2019 Active 2.5 MG Oral Tab mouth DAILY NEEDED (weight gain more than 3 lb). apixaban (ELIQUIS) 5 Take by mouth 0 Active MG Oral Tab TWICE DAILY. Sennosides (SENNA) 8.6 Take 1 Tab by 0 Active MG Oral Cap mouth EVERY BEDTIME. Continuous Blood Gluc 1 Each by Does 1 Device 0 06/27/2019 Active Allied Health Instructor (FREESTYLE not apply route VIKKI 14 DAY READER) DIRECTED. Does not apply Device VENTOLIN HFA 108 (90 INHALE 2 PUFFS 18 Inhaler 5 10/07/201806/24/ Discontinued Base) MCG/ACT BY MOUTH EVERY 2018 (Reorder) Inhalation Aero Soln 4 HOURS NEEDED FOR SHORTNESS OF BREATH AND WHEEZING rivaroxaban (XARELTO) Take 15 mg by 0 06/27/ Discontinued 15 MG Oral Tab mouth DAILY. 2019 allopurinol (ZYLOPRIM) TAKE 1 TABLET 30 Tab 5 06/22/2019 Discontinued 100 MG Oral Tab BY MOUTH EVERY 2019 DAY documented as of this encounter (statuses as of 06/27/2019) Active Problems Problem Noted Date Elective replacement indicated for pacemaker 03/11/2019 Mechanical breakdown of cardiac electronic device 02/24/2019 Overview: Added automatically from request for surgery [id number] Spinal stenosis of lumbar region with neurogenic [...] obstructive pulmonary disease) 11/01/2010 Overview: [employer] 2 lpm q 24 hrs. Chronic diastolic heart failure 11/01/2010 [facility] current use of anticoagulants with INR goal of 2.0-3.0 06/08/2008 Overview: 05/2019-switched to Xarelto Managed by: [facility] Referring Provider: Sienna Indication: afib, chronic Target Range: 2.0-3.0 Duration: Indefinite Additional factors influencing anticoagulation: Additional factors influencing anticoagulation: CHADS2 score of 3 for age > 75, hypertension, diabetes [id number] score of 5 for age > 75, hypertension, diabetes, female gender Allopurinol increases warfarin effect [place] 3 fatty acid increases bleeding risk Omeprazole [...] as of this encounter (statuses as of 06/27/2019) Resolved Problems Problem Noted Date Resolved Date Aftercare following joint replacement 11/03/2011 09/09/2012 Encounter for therapeutic drug monitoring 04/10/2010 11/18/2010 Diabetes mellitus type II 10/20/2007 07/03/2011 CAD (coronary artery disease) 05/24/2010 Overview: 40% LAD cath- 2006 documented as of this encounter (statuses as of 06/27/2019) Immunizations Name Administration Dates Next Due Depo [...] Sign Reading Time Taken Comments Blood Pressure 130/62 06/27/2019 11:13 AM EDT Pulse 76 06/27/2019 11:13 AM EDT Temperature 37.2 06/27/2019 11:13 AM C (98.9 EDT F) Respiratory Rate - - Oxygen Saturation 95% 06/27/2019 11:13 AM on 2 lpm sitting EDT Inhaled Oxygen Concentration - - Weight 113.5 kg (250 lb 3.2 06/27/2019 11:13 AM oz) EDT Height - - Body Mass Index 45.03 05/18/2019 11:32 AM EDT documented in this encounter Patient Instructions Patient InstructionsJanuary Lopez MD - 06/27/2019 11:00 AM EDT1. Change Lantus to 120 units in am and 110 units pm 2. Call with sugars in 1 week 3. Follow up in 2 weeksElectronically signed by January Lopez MD at 11:51 AM EDT documented in this encounter Progress Notes January Lopez MD - 06/27/2019 11:00 AM EDT Patient: mEi Forte Date of Service: 06/27/2019 Subjective: Emi Forte is a 78-y.o. female who presents for Chief Complaint Patient presents with Transitional Care Management TO [facility] visit , pt was told by [facility] nurse to not take spironolatone TCM Statement. Review of the hospitalization: I am seeing for transition of care following hospitalization. The date of discharge was: 06/15/19 The discharge diagnosis was TIA, Chronic daily headaches, Constipation. I reviewed the discharge summary, discharge instructions, and pertinent additional documentation obtained during hospitalization. I reconciled the medications. I also reviewed the Transition of Care documentation done by staff. Patient presented to the ER on the day of admission with complains of L sided weakness, imbalance, dizziness, double vision Symptoms much improved while in the Hospital and resolved next morning Patient is not a candidate for MRI due to pacemaker and can't have IV contrast due to renal insufficiency Patient seen by neurologist Recommended to change from Xarelto to Eliquis or Coumadin Patient was discharged on oral Eliquis 5 mg PO BID as recommended by neurologist despite her renal insufficiency. The concern was insufficient anticoagulation in obese patient. Her instructions at discharge was to take Zaroxolyn 2.5 mg PO QD and Torsemide 40 mg QOD, b ut she takes it as before admission: Torsemide 60 mg PO QOD and 40 mg PO QOD. Zaroxolyn 2.5 mg Po as needed if gains more than 5 lb. Feels better: resolved L sided weakness Ambulates with walker. Continues PT Sugars continue to be very high: 200-400 Has appointment with endocrinology next week Coordination of care. (delete one and this phrase) - I am satisfied that appropriate referrals are in place to deal with the problems identified during hospitalization, and that the patient has adequate community resources and support in place. - Additional testing related to hospitalization was requested today: no See orders. I confirmed the patient's understanding of the diagnosis and plan of care. Specific education that was provided today: Patient Instructions 1. Change Lantus to 120 units in am and 110 units pm 2. Call with sugars in 1 week 3. Follow up in 2 weeks The current and discharge medications were reconciled by me, today The source document was hospital discharge summary Past Medical History: Diagnosis Date Anemia Dr. Ewing Asthma 10/20/2007 Mild, intermittent Chronic kidney disease, stage 4, severely decreased GFR (HCC) COPD (chronic obstructive pulmonary disease) ([facility]) 11/01/2010 Diabetes mellitus ([facility]) 10/20/2007 eye - 10/2014 , feet - 10/12 Diverticulitis 10/20/2007 History of DJD (degenerative joint disease) knees GERD (gastroesophageal reflux disease) 10/20/2007 HTN (hypertension) 11/01/2010 Hyperlipidemia Mitral regurgitation 10/20/2007 mild Paroxysmal atrial fibrillation (HCC) 10/20/2007 Peripheral neuropathy 10/20/2007 Secondary to diabetes Seasonal allergies 10/20/2007 Sleep apnea CPAP Outpatient Medications as of 06/27/2019 Medication Sig Dispense Refill albuterol HFA (VENTOLIN) 108 (90 Base) MCG/ACT Inhalation Aero Soln INHALE 2 PUFFS BY MOUTH EVERY 4 HOURS NEEDED FOR SHORTNESS OF BREATH AND WHEEZING 18 g 5 Alcohol Swabs ([employer] ALCOHOL PREP SWABS) 70 % Does not apply Pads USE TWO TIMES A DAY 100 Each 5 allopurinol (ZYLOPRIM) 100 MG Oral Tab Take 1 Tab by mouth DAILY. 30 Tab 5 aspirin (ASPIRIN 81) 81 MG Oral Chew Tab Take 81 mg by mouth DAILY. bisacodyl (DULCOLAX) 5 MG [...] NOSTRIL ONE TIME A DAY1 Bottle 5 Xynqkicjltt-Iyeqnlbrf-Geghzp (TRELEGY ELLIPTA) 100-62.5-25 MCG/INH Inhalation AEROSOL POWDER,BREATH [...] 90-115 Units beneath the skin TWICE DAILY. 120 units am and 100 units pm) 60 mL 5 Insulin Lispro [...] Tab Take 1 Tab by mouth DAILY NEEDED (weight gain more than 3 lb). 30 Tab 0 metoprolol succinate (TOPROL XL) 100 MG Oral TABLET SR 24 HR TAKE 1 TABLET BY MOUTH TWO TIMESDAILY 60 Tab 5 montelukast (SINGULAIR) 10 MG Oral Tab TAKE 1 TABLET BY MOUTH EVERY DAY 30 Tab 5 Olopatadine 0.1 % Ophthalmic Solution Place 2 Drops in both eyes DAILY. 5 mL 3 [place]-3 Fatty Acids (FISH OIL) 1000 MG Oral [...] MOUTH EVERY OTHER DAY 75 Tab 5 No current facility-administered medications on file as of 06/27/2019. Allergies Allergen Reactions Tikosyn [Dofetilide] Other Eggs [Egg Phospholipids, Egg Lecithin] Keflex Swelling Latex Dermatologic Reaction Lovenox Hives Shell Fish Swelling Review of Systems: All remaining review of systems was negative. Objective: BP 130/62 (BP Location: Right arm, Patient Position: Sitting) Pulse 76 Temp 98.9 F (37.2 C) Wt 250 lb 3.2 oz (113.5 kg) SpO2 95% BMI 45.03 kg/m2 GENERAL: alert, no distress THROAT: lips, mucosa, and tongue normal: teeth and gums normal NECK: supple, symmetrical, trachea midline, no adenopathy and thyroid: not enlarged, symmetric, notenderness/mass/nodules LUNGS: clear to auscultation bilaterally HEART: regular rate and rhythm, S1, S2 normal, no murmur, click, rub or gallop EXTREMITIES: no edema NEUROLOGIC: Alert and oriented X 3, symmetric weakness, resolved L drift. Normal symmetric reflexes. Unsteady gait ICD-9-CM ICD-10-CM 1. TIA (transient ischemic attack) Improved 435.9 G45.9 2. Uncontrolled type 2 diabetes mellitus with complication, with long-term current use of insulin ([facility]) 250.82 E11.8 Endocrinology appointment pnd V58.67 E11.65 Z79.4 3. Cardiomyopathy, unspecified type ([facility]) Stable 425.4 I42.9 Patient Instructions 1. Change Lantus to 120 units in am and 110 units pm 2. Call with sugars in 1 week 3. Follow up in 2 weeks Author: January Lopez MD documented in this encounter Plan of Treatment Date Type Specialty Care Team Description 07/11/2019 Office Visit [facility] January Lopez MD [address] [place] [address] [phone] 07/13/2019 Office Visit Cardiology Ta Waddell MD [address] [place] [address] [phone] 08/03/2019 Office Visit Endocrinology Sandra Sherman, OCULAR CARE TECHNICIAN [address] [place] [address] 08/04/2019 Office Visit Pulmonary Alirio Cabello MD [address] [place] [address] [phone] 08/17/2019 [facility] 12/06/2019 [facility] 04/06/2020 [facility] Health Maintenance Due Date Last [...] Problems Progress Blood Pressure Blood Pressure HTN 130/62 No Jessica, < 140/90 (hypertension) (06/27/2019 January, 11:13 AM EDT) Note: Hypertension Care Plan Based [...] Educational Resources: National Heart, Lung, & Blood [place] http://nhlbi.nih.gov/hbp/index.html The DASH Diet Eating Plan http://www.nhlbi.nih.gov/health/health-topics/ topics/dash/ Academy of Nutrition & DIetetics http://eatright.org National Smoking Cessation Site http://smokefree.gov Blood Pressure < Blood Pressure 130/62 (06/27/2019 No January Lopez, 140/90 11:13 AM EDT) Note: This is an individualized treatment (blood pressure) goal for Emi Forte: Displayed above (on the left) is your goal for blood pressure control. Your most recent blood pressure is also shown above, on the right. You should try to achieve blood pressures that are lower than your goal listed above (on the left). Weight increase vs. 18 CHF 22.2 (06/27/2019 11:13 AM No January Lopez MD mo min [...] your goal, the number on the left). Depression screen (PHQ-9) total score < 5 Depression No January Lopez MD Note: This is an individualized treatment (depression) goal for Emi Forte: Displayed above is your goal for a depression screening (PHQ-9) score that would indicate good control of your depression. Diabetes < 7.0 Diabetes Diabetes mellitus 9.7 [...] my blood sugar results (including dextrose sticks). [facility] is safe and secure way for you [...] 7.0 Diabetes Diabetes mellitus 9.7 (05/03/2019 8:06 Ruth Lopez AM EDT) MD January Note: Diabetes Care Plan [...] my blood sugar results (including dextrose sticks). [facility] is safe and secure way for you [...] Diabetes 9.7 (05/03/2019 8:06 January Chatterjee AM EDTLiza ALDRIDGE Note: This is an individualized treatment (diabetes control, HgbA1C) goal for Emi Forte: Displayed above is your progress towards your HgbA1C goal. Your goal is shown above (on the left); your most recent HgbA1C is shown on the right. Note that lower numbers are better. Congestive Heart Failure Lifestyle Chronic diastolic heart January Chatterjee failure MD Note: Congestive Heart Failure (CHF) [...] eating or drinking. record my weight daily. [facility] is safe and secure way for you [...] work towards quitting. Keep immunizations current Lifestyle January Chatterjee MD Note: This is an individualized lifestyle goal for Emi Forte: Please be sure to keep up-to-date on recommended immunizations. For example, this would include a yearly influenza vaccine. Immunization status can be seen by looking at the Health Maintenance sections of your [employer], Plan of Care, and any After Visit Summaries. Consume a tk-mshwx-[id number] diet Lifestyle No January Lopez MD Note: This is an individualized lifestyle goal for Emi Forte: Please do not add additional salt to your food. Additional salt may lead to fluid retention and worsen your congestive heart failure. Keep a regular sleep schedule Lifestyle January Chatterjee MD Note: This is an individualized lifestyle goal for Emi Forte: Please maintain a regular sleep schedule. This may help with some symptoms of depression. Take all prescribed medications as Self-management No [...] of this encounter Implants Implanted Type Area Hat Brusher Machine Device Shelf Model / Identifier Expiration Serial / Lot Date Accent Dual Chamber [id number] - [id number] Left: ST. SIM 02/26/2012 [id number] / Implanted: Qty: 1 on 11/06/2010 at [facility] [id number] / Lead Tendril # [id number] - [id number] Left: ST SIM 07/28/2013 [id number] / Implanted: Qty: 1 on 11/06/2010 at [facility]/ [employer] [id number] / ER Tendril Lead 8tc/58cm - [id number] Left: ST. SIM 10/28/2013 [id number]/ 58CM / Implanted: Qty: 1 on 11/06/2010 at [facility], [facility]. [id number] / Bone Cement, Double 80gm - [id number] Right: DEPUY [id number] / Implanted: Qty: 1 on 10/20/2011 at [facility] [employer] / [id number] Tibial Plate Size 5 Nexgen - [id number] Right: LONA MONCADA 5980-47- [id number] / Implanted: Qty: 1 on 10/20/2011 at [facility] [employer] / [id number] Lps-Flex Option Femoral E Rt - [id number] Right: LONA MONCADA 5964-15 -52 / Implanted: Qty: 1 on 10/20/2011 at [facility] [employer] / [id number] Lps-Flex Taper Plugs - [id number] Right: LONA MONCADA / Implanted: Qty: 1 on 10/20/2011 at [facility] [employer] / [id number] Art Surface 12mm Green - [id number] Right: LONA MONCADA / Implanted: Qty: 1 on 10/20/2011 at [facility] [employer] / [id number] Assurity Mri [id number] Generator - [id number] ST. SIM 08/27/2020 [id number] / Implanted: Qty: 1 on 03/11/2019 by Talha Pineda MD at [facility], [facility]. [id number] / documented as of this encounter Results Not on filedocumented in this encounter Visit Diagnoses Diagnosis TIA (transient ischemic attack) - Primary Unspecified transient cerebral ischemia Uncontrolled type 2 diabetes mellitus with complication, with long-term current use of insulin (HCC) Cardiomyopathy, unspecified type (HCC) documented in this encounter Insurance Payer Benefit Plan / Subscriber ID Effective Dates Phone Address Type Group [employer] EXCELLUS xxxxxxxxxxxx Effective for [employer] ADVANTAGE MEDICARE BLUE all dates PPO [phone]) Guarantor Name Account Type Relation to Date of Phone Billing Address Patient Emi Forte Personal/Family [phone] (Home) [place], [place] [phone] (Work) documented as of this encounter Advance [...]
--- OUTSIDE RECORDS SUMMARY | 2019-07-15 15:27 | XMS REPORT | Summary of Care ---
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 Reason for Visit Reason Comments Cough copd has been worse ,pain in right side when coughing Encounter Details Date Type Department Care Team Description 07/11/2019 Office Visit [facility], Chronic obstructive pulmonary disease with acute exacerbation (HCC) (Primary Dx); Practice MD January Uncontrolled type 2 diabetes mellitus with complication, with long-term current use of insulin (HCC); [address] [place], [place] [address] [place] [address] [phone] Allergies Active Allergy Reactions Severity Noted Date Comments Egg Phospholipids, Egg Lecithin 10/20/2007 Keflex Swelling 10/20/2007 Latex Dermatologic Reaction 08/06/2016 Lovenox Hives 12/16/2011 Shell Fish Swelling 11/07/2008 Dofetilide Other High 12/16/2011 documented as of this encounter (statuses as of 07/11/2019) Medications Medication Sig Dispensed Refills Start Date End Date Status cyanocobalamin (B-12) 500 Take 500 mcg by 0 Active MCG Oral Tab mouth EVERY MORNING. Stratton-3 Fatty Acids (FISH Take 1,000 mg 0 [...] TABLET SR 12 HR TIMES DAILY NEEDED. Ihhmppitvkq-Wirlihoyp-Szmae Take 1 INHL by inhalation 1 Each [...] 11:35 AM metoprolol succinate TAKE 1 TABLET BY 60 Tab 5 05/23/2019 Active (TOPROL XL) 100 MG MOUTH TWO TIMES Oral TABLET SR 24 DAILY HRIndications: Chronic atrial fibrillation, Nonischemic cardiomyopathy (HCC) aspirin (ASPIRIN 81) Take 81 mg by 0 Active 81 MG Oral Chew Tab mouth DAILY. Cholecalciferol Take 2,000 mg by 60 Cap 5 06/14/2019 Active (VITAMIN D3) 1000 mouth DAILY. units Oral Cap HYDROcodone-acetaminop Take 1 Tab by 90 Tab 0 06/22/2019 Active hen (NORCO) 10-325 MG mouth EVERY SIX Oral Tab HOURS NEEDED (pain). Max Daily Amount: 4 Tabs. metolazone (ZAROXOLYN) Take 1 Tab by 30 Tab 0 06/24/2019 Active 2.5 MG Oral Tab mouth DAILY NEEDED (weight gain more than 3 lb). albuterol HFA INHALE 2 PUFFS 18 g 5 06/27/2019 Active (VENTOLIN) 108 (90 BY MOUTH EVERY 4 Base) MCG/ACT HOURS NEEDED Inhalation Aero Soln FOR SHORTNESS OF BREATH AND WHEEZING Sennosides (SENNA) 8.6 Take 1 Tab by 0 Active MG Oral Cap mouth EVERY BEDTIME. doxycycline Take 100 mg by 14 Tab 0 07/06/2019 Active (VIBRAMYCIN) 100 MG mouth TWICE 019 Oral Tab DAILY for 7 days. apixaban (ELIQUIS) 5 Take 1 Tab by 60 Tab 1 07/11/2019 Active MG Oral Tab mouth TWICE DAILY. amoxicillin-clavulanic Take 1 Tab by 20 Tab 0 07/11/2019 Active acid (AUGMENTIN 500 mouth TWICE MG) 500-125 MG Oral DAILY. Tab Continuous Blood Gluc 1 Each by Does 1 Device 1 07/11/2019 Active Quill Skinner (FREESTYLE not apply route VIKKI 14 DAY READER) DIRECTED. Does not apply Device apixaban (ELIQUIS) 5 Take by mouth 0 Discontinued MG Oral Tab TWICE DAILY. 019 (Reorder) Continuous Blood Gluc 1 Each by Does 1 Device 0 06/27/2019 Discontinued Quill Skinner (FREESTYLE not apply route 019 (Reorder) VIKKI 14 DAY READER) DIRECTED. Does not apply Device documented as of this encounter (statuses as of 07/11/2019) Active Problems Problem Noted Date Elective replacement indicated for pacemaker 03/11/2019 Mechanical breakdown of cardiac electronic device 02/24/2019 Overview: Added automatically from request for surgery [id number] Spinal stenosis of lumbar region with neurogenic [...] obstructive pulmonary disease) 11/01/2010 Overview: [facility] [place] 2 lpm q 24 hrs. Chronic diastolic heart failure 11/01/2010 group home current use of anticoagulants with INR goal of 2.0-3.0 06/08/2008 Overview: 05/2019-switched to Xarelto Managed by: Talia Anticoki Referring Provider: Sienna Indication: afib, chronic Target Range: 2.0-3.0 Duration: Indefinite Additional factors influencing anticoagulation: Additional factors influencing anticoagulation: CHADS2 score of 3 for age > 75, hypertension, diabetes [id number] score of 5 for age > 75, hypertension, diabetes, female gender Allopurinol increases warfarin effect Stratton 3 fatty acid increases bleeding risk Omeprazole [...] as of this encounter (statuses as of 07/11/2019) Resolved Problems Problem Noted Date Resolved Date Aftercare following joint replacement 11/03/2011 09/09/2012 Encounter for therapeutic drug monitoring 04/10/2010 11/18/2010 Diabetes mellitus type II 10/20/2007 07/03/2011 CAD (coronary artery disease) 05/24/2010 Overview: 40% LAD cath- 2007 documented as of this encounter (statuses as of 07/11/2019) Immunizations Name Administration Dates Next Due Depo [...] Sign Reading Time Taken Comments Blood Pressure 120/80 07/11/2019 1:49 PM EDT Pulse 73 07/11/2019 1:49 PM EDT Temperature 36.7 07/11/2019 1:49 PM EDT C (98 F) Respiratory Rate - - Oxygen Saturation 93% 07/11/2019 1:49 PM EDT Inhaled Oxygen Concentration - - Weight 112.5 kg (248 lb) 07/11/2019 1:49 PM EDT Height 162.6 cm (5' 4") 07/11/2019 1:49 PM EDT Body Mass Index 42.57 07/11/2019 1:49 PM EDT documented in this encounter Patient Instructions Patient InstructionsJanuary Lopez MD - 07/11/2019 1:40 PM EDT1. Take Augmentin 500 mg 2 times a day for 10 days 2. Change Lantus to 120 units am and 107 units in pm 3. Follow up in 1 week and as needed documented in this encounter Progress Notes January Lopez MD - 07/11/2019 1:40 PM EDT Patient: Emi Forte Date of Service: 07/11/2019 Subjective: Emi Forte is a 78-y.o. female who presents for Chief Complaint Patient presents with Cough copd has been worse ,pain in right side when coughing Patient comes follow up COPD exacerbation Completing Doxycycline Continues to have mostly non productive cough Continues to run high sugars: 160-200 fasting and 200's in pm. Rescheduled appointment with endocrinology again. No weight gain or peripheral edema Past Medical History: Diagnosis Date Anemia Dr. [...] Sleep apnea CPAP Outpatient Medications as of 07/11/2019 Medication Sig Dispense Refill albuterol HFA (VENTOLIN) [...] TIMES DAILY NEEDED (abdominalcramps). 120 Cap 3 doxycycline (VIBRAMYCIN) 100 MG Oral Tab Take 100 mg by mouth TWICE DAILY for 7 days. 14 Tab 0 fluticasone (FLONASE) 50 MCG/ACT Nasal Suspension USE 2 SPRAYS IN EACH NOSTRIL ONE TIME A DAY1 Bottle 5 Rzxvjeseymd-Qfzajwgag-Lhykqf (TRELEGY ELLIPTA) 100-62.5-25 MCG/INH Inhalation AEROSOL POWDER,BREATH [...] in both eyes DAILY. 5 mL 3 Stratton-3 Fatty Acids (FISH OIL) 1000 MG Oral [...] by mouth EVERY BEDTIME. 60 Tab 0 Sennosides (SENNA) 8.6 MG Oral Cap Take 1 Tab by mouth EVERY BEDTIME. Spironolactone 50 MG Oral Tab Take 1 Tab by mouth DAILY 0700 on Empty Stomach. 90 Tab 3 torsemide (DEMADEX) 20 MG Oral Tab TAKE 3 TABLETS BY MOUTH EVERY OTHER DAY ALTERNATING WITH 2TABLETS BY MOUTH EVERY OTHER DAY 75 Tab 5 No current facility-administered medications on file as of 07/11/2019. Allergies Allergen Reactions Tikosyn [Dofetilide] Other Eggs [Egg Phospholipids, Egg Lecithin] Keflex Swelling Latex Dermatologic Reaction Lovenox Hives Shell Fish Swelling Objective: BP 120/80 (BP Location: Right arm, Patient Position: Sitting) Pulse 73 Temp 98 F (36.7 C)Ht 5' 4" (1.626 m) Wt 248 lb (112.5 kg) SpO2 93% BMI 42.57 kg/m2 General appearance: alert, in no distress and chronically ill appearing. Oropharyngeal exam - mucous membranes moist, pharynx normal without lesions. Chest: bilaterally reduced air entry, no wheezing, rales, few bilateral rhonchi. CVS exam: normal rate, regular rhythm, normal S1, S2, no murmurs, rubs, clicks or gallops. Exam of extremities: no pedal edema noted Chest X-ray: increased markings in lower lungs bilaterally. Congestion vs infection ICD-9-CM ICD-10-CM 1. Chronic obstructive pulmonary disease with acute exacerbation (HCC) 491.21 J44.1 XR CHEST 2 VIEW PA AND LATERAL (STANDARD) 2. Uncontrolled type 2 diabetes mellitus with complication, with long-term current use of insulin (HCC) 250.82 E11.8 COMPREHENSIVE METABOLIC PANEL V58.67 E11.65 Z79.4 3. Anemia, unspecified type 285.9 D64.9 CBC WITH DIFFERENTIAL Patient Instructions 1. Take Augmentin 500 mg 2 times a day for 10 days 2. Change Lantus to 120 units am and 107 units in pm 3. Follow up in 1 week and as needed Author: January Lopez MD documented in this encounter Plan of Treatment Date Type Specialty Care Team Description 07/13/2019 Office Visit Cardiology Ta Waddell MD [address] [place] [address] 07/18/2019 Office Visit Family Practice January Lopez MD [facility] [place] [address] [phone] 08/03/2019 Office Visit Endocrinology Sandra Sherman, SIMEON [address] [place] [address] 08/04/2019 Office Visit Pulmonary Alirio Cabello MD [address] [place] [address] 08/17/2019 [facility] 12[facility]06/2019 [facility] 04/06/2020 [facility] Name Type Priority Associated Diagnoses Date/Time XR CHEST 2 VIEW PA AND Imaging Routine Chronic obstructive 07/11/2019 2: 27 PM LATERAL (STANDARD) pulmonary disease with EDT acute exacerbation (HCC) COMPREHENSIVE METABOLIC Lab Routine Uncontrolled type 2 07/11/2019 2:59 PM PANEL diabetes mellitus with EDT complication, with long-term current use of insulin (HCC) CBC WITH DIFFERENTIAL Lab Routine Anemia, unspecified 07/11/2019 2:59 PM type EDT Health Maintenance Due Date Last Done Comments [...] Problems Progress Blood Pressure Blood Pressure HTN 120/80 No Jessica, < 140/90 (hypertension) (07/11/2019 January, 1:49 PM EDT) Note: Hypertension Care Plan Based [...] Educational Resources: National Heart, Lung, & Blood [place] http://nhlbi.nih.gov/hbp/index.html The DASH Diet Eating Plan http://www.nhlbi.nih.gov/health/health-topics/ topics/dash/ Academy of Nutrition & DIetetics http://eatright.org National Smoking Cessation Site http://smokefree.gov Blood Pressure < Blood Pressure 120/80 (07/11/2019 No January Lopez, 140/90 1:49 PM EDT) Note: This is an individualized treatment (blood pressure) goal for Emi Thibodeaux Forte: Displayed above (on the left) is your goal for blood pressure control. Your most recent blood pressure is also shown above, on the right. You should try to achieve blood pressures that are lower than your goal listed above (on the left). Weight increase vs. 18 CHF 20 (07/11/2019 1:49 PM January Chatterjee MD mo min (lbs) < 5 EDT) Note: This is an individualized treatment (congestive heart failure, CHF) goal for Emi Thibodeaux Forte: Displayed above (on the right) is [...] < 7.0 Diabetes 9.7 (05/03/2019 8:06 January Chatterjee, AM EDT) Note: This is an individualized [...] eating or drinking. record my weight daily. HelloFax is safe and secure way for you [...] and any After Visit Summaries. Consume a gt-lbwrh-yiid diet Lifestyle No January Lopez MD Note: [...] of this encounter Implants Implanted Type Area Receiver Stocker Device Shelf Model / Identifier Expiration Serial / Lot Date Accent Dual Chamber [id number] - [id number] Left: ST. SIM 02/26/2012 [id number] / Implanted: Qty: 1 on 11/06/[address] [facility] [employer] [id number] / Lead Tendril # [id number]-52 - [id number] Left: ST SIM 07/28/2013 [id number] / Implanted: Qty: 1 on 11/06/2010 at [facility]/ [employer] [id number] / ER Tendril Lead 8tc/58cm - [id number] Left: ST. SIM 10/28/2013 [id number]/ 58CM / Implanted: Qty: 1 on 11/06/2010 at [facility] [id number] / Bone Cement, Double 80gm - [id number] Right: DEPUY [id number] / Implanted: Qty: 1 on 10/20/[address] [facility] Knee / [id number] Tibial Plate Size 5 Nexgen - [id number] Right: LONA MONCADA 5980-47- 01 / Implanted: Qty: 1 on 10/20/[address] [facility] [employer] / [id number] Lps-Flex Option Femoral E Rt - [id number] Right: LONA MONCADA 5964-15 -52 / Implanted: Qty: 1 on 10/20/[address] [facility] [employer] / [id number] Lps-Flex Taper Plugs - [id number] Right: LONA MONCADA / Implanted: Qty: 1 on 10/20/[address] [facility] [employer] / [id number] Art Surface 12mm Green - [id number] Right: LONA MONCADA / Implanted: Qty: 1 on 10/20/[address] [facility] [employer] / [id number] Assurity Mri [id number] Generator - [id number] ST. SIM 08/27/2020 [id number] / Implanted: Qty: 1 on 03/11/2019 by Talha Pineda MD at [facility]. [id number] / documented as of this encounter Results Not on filedocumented in this encounter Visit Diagnoses Diagnosis Chronic obstructive pulmonary disease with acute exacerbation (HCC) - Primary Obstructive chronic bronchitis with exacerbation Uncontrolled type 2 diabetes mellitus with complication, with long-term current use of insulin (HCC) Anemia, unspecified type documented in this encounter Insurance Payer Benefit Plan / Subscriber ID Effective Dates Phone Address Type Group [employer] MED[employer] EX[employer]LLUS xxxxxxxxxxxx Effective for [employer]VANT[employer] MEDICARE BLUE all dates PPO [phone]) Guarantor Name Account Type Relation to Date of Phone Billing Address Patient Emi Forte Personal/Family 1940 [address] (Home) [place], [place] [phone] (Work) documented as of this encounter Advance Directives Type Date 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
--- OUTSIDE RECORDS SUMMARY | 2019-07-15 15:27 | XMS REPORT | Summary of Care ---
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 (Primary Dx) [place] [address] [place], [place] [id number] Allergies Active Allergy Reactions Severity Noted Date Comments Egg Phospholipids, Egg Lecithin 10/20/2007 Keflex Swelling 10/20/2007 Latex Dermatologic Reaction 08/06/2016 Lovenox Hives 12/16/2011 Shell Fish Swelling 11/07/2008 Dofetilide Other High 12/16/2011 documented as of this encounter (statuses as of 07/05/2019) Medications Medication Sig Dispensed Refills Start Date End Date Status cyanocobalamin (B-12) 500 Take 500 mcg by 0 Active MCG Oral Tab mouth EVERY MORNING. Adams-3 Fatty Acids (FISH Take 1,000 mg 0 [...] TABLET SR 12 HR TIMES DAILY NEEDED. Ignedbphhdb-Tdxlsergl-Oieui Take 1 INHL by inhalation 1 Each [...] Reported on 06/27/2019 11:35 AM metoprolol succinate (TOPROL TAKE 1 TABLET BY MOUTH 60 Tab 5 05/23/2019 Active XL) 100 MG Oral TABLET SR 24 TWO TIMES DAILY HRIndications: Chronic atrial fibrillation, Nonischemic cardiomyopathy (HCC) aspirin (ASPIRIN 81) 81 MG Take 81 mg by mouth 0 Active Oral Chew Tab DAILY. Cholecalciferol (VITAMIN D3) Take 2,000 mg by mouth 60 Cap 5 06/14/2019 Active 1000 units Oral Cap DAILY. HYDROcodone-acetaminophen Take 1 Tab by mouth 90 Tab 0 06/22/2019 Active (NORCO) 10-325 MG Oral Tab EVERY SIX HOURS NEEDED (pain). Max Daily Amount: 4 Tabs. metolazone (ZAROXOLYN) 2.5 MG Take 1 Tab by mouth 30 Tab 0 06/24/2019 Active Oral Tab DAILY NEEDED (weight gain more than 3 lb). albuterol HFA (VENTOLIN) 108 INHALE 2 PUFFS BY MOUTH 18 g 5 06/27/2019 Active (90 Base) MCG/ACT Inhalation EVERY 4 HOURS NEEDED Aero Soln FOR SHORTNESS OF BREATH AND WHEEZING apixaban (ELIQUIS) 5 MG Oral Take by mouth TWICE 0 Active Tab DAILY. Sennosides (SENNA) 8.6 MG Oral Take 1 Tab by mouth 0 Active Cap EVERY BEDTIME. Continuous Blood Gluc Retail Assistant 1 Each by Does not apply 1 Device 0 2018 Active (FREESTYLE VIKKI 14 DAY route DIRECTED. READER) Does not apply Device documented as of this encounter (statuses as of 07/05/2019) Active Problems Problem Noted Date Elective replacement indicated for pacemaker 03/11/2019 Mechanical breakdown of cardiac electronic device 02/24/2019 Overview: Added automatically from request for surgery [id number] Spinal stenosis of lumbar region with neurogenic [...] obstructive pulmonary disease) 11/01/2010 Overview: [employer] 2 lpm q 24 hrs. 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 Surya OSLIS (degenerative joint disease) Overview: knees Hyperlipidemia Atrial fibrillation Overview: paroxysmal CAD (coronary artery disease) Overview: 40% LAD cath- 2006, cath- 2008 20% LAD documented as of this encounter (statuses as of 07/05/2019) Resolved Problems Problem Noted Date Resolved Date Aftercare following joint replacement 11/03/2011 09/09/2012 Encounter for therapeutic drug monitoring 04/10/2010 11/18/2010 Diabetes mellitus type II 10/20/2007 07/03/2011 CAD (coronary artery disease) 05/24/2010 Overview: 40% LAD cath- 2006 documented as of this encounter (statuses as of 07/05/2019) Immunizations Name Administration Dates Next Due Depo [...] Sign Reading Time Taken Comments Blood Pressure 130/70 07/05/2019 1:22 PM EDT Pulse 70 07/05/2019 1:22 PM EDT Temperature 37.3 07/05/2019 1:22 C (99.1 PM EDT F) Respiratory Rate - - Oxygen Saturation 94% 07/05/2019 1:22 sitting with 2lpm of PM EDT O2 Inhaled Oxygen - - Concentration Weight 112.6 kg (248 lb 3.2 07/05/2019 1:22 oz) PM EDT Height 158.8 cm (5' 2.5") 07/05/2019 1:22 PM EDT Body Mass Index 44.67 07/05/2019 1:22 PM EDT documented in this encounter Patient Instructions Patient InstructionsJanuary Lopez MD - 07/05/2019 1:40 PM EDT1. Doxycycline 100 mg 2 times a day for 7 days 2. Take Robitussin DM (sugar free) as needed for cough 3. Follow up as scheduledElectronically signed by January Lopez MD at 1:43 PM EDT documented in this encounter Progress Notes January Lopez MD - 07/05/2019 1:40 PM EDT PATIENT: Emi Forte : 1940 DATE OF SERVICE: 07/05/2019 Subjective SUBJECTIVE: Emi Forte is a 78-y.o. female who presents for evaluation of low grade fever , nasal congestion, nonproductive cough and wheezing. Symptoms began 6 days ago and are gradually worsening since that time. Past history is significant for COPD. Past Medical History: Diagnosis Date Anemia Dr. [...] Brother Diabetes Brother Heart Disease Brother 40 [place] Heart Disease Brother 31 LA Heart Disease Sister 50 CABG, Now has PPM Hypertension Sister Anesth Problems No family history Arthritis No family history Cancer No family history Clotting Disorder No family history Kidney Disease No family history Thyroid Disease No family history Current Outpatient Medications Medication Sig albuterol HFA (VENTOLIN) 108 (90 Base) MCG/ACT Inhalation Aero Soln INHALE 2 PUFFS BY MOUTH EVERY 4 HOURS NEEDED FOR SHORTNESS OF BREATH AND WHEEZING Alcohol Swabs ([employer] ALCOHOL PREP SWABS) 70 % Does not apply Pads USE TWO TIMES A DAY allopurinol (ZYLOPRIM) 100 MG Oral Tab Take 1 Tab by mouth DAILY. apixaban (ELIQUIS) 5 MG Oral Tab Take by mouth TWICE DAILY. aspirin (ASPIRIN 81) 81 MG Oral Chew Tab Take 81 mg by mouth DAILY. bisacodyl (DULCOLAX) 5 MG Oral Tab EC Take 1 Tab by mouth TWICE DAILY. ( Patient taking differently: Take 15 mg by mouth DAILY.) Blood Glucose Monitor Software Does not apply Device 1 Device by Does not apply route DIRECTED. Insurance preferred. E11.9 Blood Glucose Monitoring Suppl (LockboxSTYLE LITE) Does not apply Device USE DIRECTED Cholecalciferol (VITAMIN D3) 1000 units Oral Cap Take 2,000 mg by mouth DAILY. Continuous Blood Gluc Retail Assistant (seasonax GmbHYLE VIKKI 14 DAY READER) Does not apply Device 1 Each by Does not apply route DIRECTED. cyanocobalamin (B-12) 500 MCG Oral Tab Take 500 mcg by mouth EVERY MORNING. dicyclomine (BENTYL) 10 MG Oral Cap Take 1 Cap by mouth FOUR TIMES DAILY NEEDED (abdominalcramps). fluticasone (FLONASE) 50 MCG/ACT Nasal Suspension USE 2 SPRAYS IN EACH NOSTRIL ONE TIME A DAY Xvvdusbflhz-Jyspsjibh-Fjayow (TRELEGY ELLIPTA) 100-62.5-25 MCG/INH Inhalation AEROSOL POWDER,BREATH [...] NEEDED (pain). Max Daily Amount: 4 Tabs. Insulin Glargine (LANTUS SOLOSTAR) 100 UNIT/ML Subcutaneous Solution Pen- injector Inject 90-115 Units beneath the skin TWICE DAILY. (Patient taking differently: Inject 90-115 Units beneath the skin TWICE DAILY. 120 units am and 100 units pm) Insulin Lispro 100 UNIT/ML Subcutaneous Solution Pen-injector [...] Tab Take 5 mg by mouth DAILY. metolazone (ZAROXOLYN) 2.5 MG Oral Tab Take 1 Tab by mouth DAILY NEEDED (weight gain more than 3 lb). metoprolol succinate (TOPROL XL) 100 MG Oral TABLET SR 24 HR TAKE 1 TABLET BY MOUTH TWO TIMESDAILY montelukast (SINGULAIR) 10 MG Oral Tab TAKE 1 TABLET BY MOUTH EVERY DAY Olopatadine 0.1 % Ophthalmic Solution Place 2 Drops in both eyes DAILY. Adams-3 Fatty Acids (FISH OIL) 1000 MG Oral [...] Take 1-2 Tabs by mouth EVERY BEDTIME. Sennosides (SENNA) 8.6 MG Oral Cap Take 1 Tab by mouth EVERY BEDTIME. Spironolactone 50 MG Oral Tab Take 1 Tab by mouth DAILY 0700 on Empty Stomach. torsemide (DEMADEX) 20 MG Oral Tab TAKE 3 TABLETS BY MOUTH EVERY OTHER DAY ALTERNATING WITH 2TABLETS BY MOUTH EVERY OTHER DAY No current facility-administered medications for this visit. [...] file Gets together: Not on file Attends methodist service: Not on file Active member of [...] known exposure to Tuberculosis, Asbestos or Silica. REVIEW OF SYSTEMS: All remaining review of systems was negative. Objective OBJECTIVE: BP 130/70 (BP Location: Left arm, Patient Position: Sitting) | Pulse 70 | Temp 99.1 F (37.3 C) | Ht 5' 2.5" (1.588 m) | Wt 248 lb 3.2 oz (112.6 kg) | SpO2 94% Comment: sitting with 2lpm ofO2 | BMI 44.67 kg/m GENERAL: alert, fatigued. HEENT: neck without nodes, pharynx erythematous without exudate, sinuses nontender and nasal mucosacongested. LUNGS: clear to auscultation bilaterally. HEART: regular rate and rhythm, S1, S2 normal, no murmur, click, rub or gallop. ICD-9-CM ICD-10-CM 1. COPD with acute exacerbation ([facility]) 491.21 J44.1 Patient Instructions 1. Doxycycline 100 mg 2 times a day for 7 days 2. Take Robitussin DM (sugar free) as needed for cough 3. Follow up as scheduled Author: January Lopez MD 07/05/2019 14:14 documented in this encounter Plan of Treatment Date Type Specialty Care Team Description 07/11/2019 Office Visit Family Practice January Lopez MD [address] [place] [id number] 07/13/2019 Office Visit Cardiology Ta Waddell MD [address] [place] [address] [phone] 08/03/2019 Office Visit [facility]in[facility] Sandra Sherman, [facility] [address] [facility] [address] 08/04/2019 Office Visit Pulmonary Alirio Cabello MD [address] [place] [address] 08/17/2019 [facility] 12/06/2019 [facility] 04/06/2020 [facility] Health Maintenance Due Date Last [...] Problems Progress Blood Pressure Blood Pressure HTN 130/70 No Jessica, < 140/90 (hypertension) (07/05/2019 January, 1:22 PM EDT) Note: Hypertension Care Plan Based [...] Educational Resources. record my blood pressure results. Beth is safe and secure way for you to do this in your medical record online. limit alcohol consumption. For men two drinks per day and women one drink per day. if currently smoking, will discuss how to quit smoking with my healthcare provider and work towards quitting. Educational Resources: National Heart, Lung, & Blood Corea http://nhlbi.nih.gov/hbp/index.html The DASH Diet Eating Plan http://www.nhlbi.nih.gov/health/health-topics/ topics/dash/ Academy of Nutrition & DIetetics http://eatright.org National Smoking Cessation Site http://smokefree.gov Blood Pressure < Blood Pressure 130/70 (07/05/2019 No January Lopez, 140/90 1:22 PM EDT) Note: This is an individualized treatment (blood pressure) goal for Emi Forte: Displayed above (on the left) is your goal for blood pressure control. Your most recent blood pressure is also shown above, on the right. You should try to achieve blood pressures that are lower than your goal listed above (on the left). Weight increase vs. 18 CHF 20.2 (07/05/2019 1:22 PM No January Lopez MD mo min [...] screen (PHQ-9) total score < 5 Depression January Chatterjee MD Note: This is an individualized treatment [...] my blood sugar results (including dextrose sticks). [employer] is safe and secure way for you [...] eating or drinking. record my weight daily. Beth is safe and secure way for [...] and any After Visit Summaries. Consume a ke-ilbix-fwzg diet Lifestyle No January Lopez MD Note: This is an individualized lifestyle goal for Emi Forte: Please do not add additional salt to your food. Additional salt may lead to fluid retention and worsen your congestive heart failure. Keep a regular sleep schedule Lifestyle No January Lopez MD Note: This [...] of this encounter Implants Implanted Type Area Freelance Director Device Shelf Model / Identifier Expiration Serial / Lot Date Accent Dual Chamber [id number] - [id number] Left: ST. SMI 02/26/2012 [id number] / Implanted: Qty: 1 on 11/06/2010 at [facility] [employer] [id number] / Lead Tendril # [id number] - [id number] Left: ST SIM 07/28/2013 [id number] / Implanted: Qty: 1 on 11/06/2010 at [facility]/ [place] [id number] / ER Tendril Lead 8tc/58cm - [id number] Left: ST. SIM 10/28/2013 2088TC/ 58CM / Implanted: Qty: 1 on 11/06/2010 at [facility] [employer] [id number] / Bone Cement, Double 80gm - [id number] Right: DEPUY [id number] / Implanted: Qty: 1 on 10/20/2011 at [facility] [employer] / [id number] Tibial Plate Size 5 Nexgen - [id number] Right: LONA MONCADA 5980-47- 01 / Implanted: Qty: 1 on 10/20/2011 at [facility] [employer] / [id number] Lps-Flex Option Femoral E Rt - [id number] Right: LONA MONCADA 5964-15 -52 / Implanted: Qty: 1 on 10/20/2011 at [facility] [employer] / [id number] Lps-Flex Taper Plugs - [id number] Right: LONA MONCADA / Implanted: Qty: 1 on 10/20/2011 at [facility] [employer] / [id number] Art Surface 12mm Green - [id number] Right: LONA MONCADA / Implanted: Qty: 1 on 10/20/2011 at [facility] [employer] / [id number] Assurity Mri [id number] Generator - [id number] ST. SIM 08/27/2020 [id number] / Implanted: Qty: 1 on 03/11/2019 by Talha Pineda MD at [facility], [facility]. [id number] / documented as of this encounter Results Not on filedocumented in this encounter Visit Diagnoses Diagnosis COPD with acute exacerbation (HCC) - Primary Obstructive chronic bronchitis with exacerbation documented in this encounter Insurance Payer Benefit Plan / Subscriber ID Effective Dates Phone Address Type Group [facility] MEDICARE EXCELLUS xxxxxxxxxxxx Effective for [employer] AD[employer]ANT[employer] MEDICARE BLUE all dates PPO [phone]) Guarantor Name Account Type Relation to Date of Phone Billing Address Patient Emi Forte Personal/Family 1940 [address] [facility] (Home) [place], [place] [phone] [id number] (Work) documented as of this encounter Advance Directives Type Date 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
--- OUTSIDE RECORDS SUMMARY | 2019-07-15 15:27 | XMS REPORT | Summary of Care ---
:1940 Author Organization [facility] Address [address] [place] [address] Care Team Providers Name Role Phone January Lopez MD Primary Care Provider Reason for Visit Reason Comments Follow Up to headaches past 4 days , light headness , and falling has vomited 2xs seems to be sluggish , c/o whole body getting weak Encounter Details Date Type Department Care Team Description 06/14/2019 Office Visit [facility], Naila headache syndrome ( Primary Dx); Practice MD January Left-sided muscle weakness [address] [place] [address] [place] [address] [phone] Allergies Active Allergy Reactions Severity Noted Date Comments Egg Phospholipids, Egg Lecithin 10/20/2007 Keflex Swelling 10/20/2007 Latex Dermatologic Reaction 08/06/2016 Lovenox Hives 12/16/2011 Shell Fish Swelling 11/07/2008 Dofetilide Other High 12/16/2011 documented as of this encounter (statuses as of 06/14/2019) Medications Medication Sig Dispensed Refills Start Date End Date Status cyanocobalamin (B-12) 500 Take 500 mcg by 0 Active MCG Oral Tab mouth EVERY MORNING. Delta-3 Fatty Acids (FISH Take 1,000 mg 0 [...] Active (MIRALAX) Oral Pack ropinirole (REQUIP) 0.25 Take 1-2 Tabs by mouth 60 Tab 0 05/17/2018 Active MG Oral Tab EVERY BEDTIME. Blood Glucose Monitoring USE DIRECTED 1 Each 0 07/14/2018 Active Suppl (FREESTYLE LITE) Does not apply Device Blood Glucose Monitor 1 Device by Does not apply 1 Device 0 07/21/2018 Active Software Does not apply route DIRECTED. Device Insurance preferred. E11.9 Lancets Does not apply by Does not apply route 200 Each 5 07/23/2018 Active Misc TWICE DAILY. E11.9 - Freestyle Glucose Blood [...] TABLET SR 12 HR TIMES DAILY NEEDED. Oazxeudwqre-Ybcbqjfdo-Mcen Take 1 INHL by inhalation 1 Each 5 11/18/2018 Active nt (TRELEGY ELLIPTA) DAILY. 100-62.5-25 MCG/INH Inhalation AEROSOL [...] units pm, Reported on 05/27/2019 11:25 AM metolazone (ZAROXOLYN) Take 1 Tab by 30 Tab 0 05/18/2019 Active 2.5 MG Oral Tab mouth DAILY. HYDROcodone-acetaminoph Take 1 Tab by 90 Tab 0 05/20/2019 Active en (NORCO) 10-325 MG mouth EVERY SIX Oral Tab HOURS NEEDED (pain). Max Daily Amount: 4 Tabs. metoprolol succinate TAKE 1 TABLET BY 60 Tab 5 05/23/2019 Active (TOPROL XL) 100 MG Oral MOUTH TWO TIMES TABLET SR 24 DAILY HRIndications: Chronic atrial fibrillation (HCC), Nonischemic cardiomyopathy (HCC) rivaroxaban (XARELTO) Take 15 mg by 0 Active 15 MG Oral Tab mouth DAILY. aspirin (ASPIRIN 81) 81 Take 81 mg by 0 Active MG Oral Chew Tab mouth DAILY. Cholecalciferol Take 2,000 mg by 60 Cap 5 06/14/2019 Active (VITAMIN D3) 1000 units mouth DAILY. Oral Cap Cholecalciferol Take 2,000 mg by 60 Cap 5 12/13/2018 Discontinued (VITAMIN D3) 1000 units mouth DAILY. 019 (Reorder) Oral Cap warfarin (COUMADIN) 5 Take 1-1.5 Tabs 90 Tab 3 05/18/2019 Discontinued MG Oral TabIndications: by mouth DAILY. 019 Chronic atrial As directed fibrillation (HCC) which is 7.5mg Mon/Wed/Fri. 5mg remaining days of week documented as of this encounter (statuses as of 06/14/2019) Active Problems Problem Noted Date Elective replacement indicated for pacemaker 03/11/2019 Mechanical breakdown of cardiac electronic device 02/24/2019 Overview: Added automatically from request for surgery [id number] Spinal stenosis of lumbar region with neurogenic [...] obstructive pulmonary disease) 11/01/2010 Overview: [employer] 2 lpm q 24 hrs. 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..] as of this encounter (statuses as of 06/14/2019) Resolved Problems Problem Noted Date Resolved Date Aftercare following joint replacement 11/03/2011 09/09/2012 Encounter for therapeutic drug monitoring 04/10/2010 11/18/2010 Diabetes mellitus type II 10/20/2007 07/03/2011 CAD (coronary artery disease) 05/24/2010 Overview: 40% LAD cath- 2006 documented as of this encounter (statuses as of 06/14/2019) Immunizations Name Administration Dates Next Due Depo [...] Sign Reading Time Taken Comments Blood Pressure 112/78 06/14/2019 1:23 PM EDT Pulse 78 06/14/2019 1:23 PM EDT Temperature 37.1 06/14/2019 1:23 PM EDT C (98.8 F) Respiratory Rate - - Oxygen Saturation 96% 06/14/2019 1:23 PM EDT Inhaled Oxygen Concentration - - Weight 112 kg (247 lb) 06/14/2019 1:23 PM EDT Height - - Body Mass Index 44.46 05/18/2019 11:32 AM EDT documented in this encounter Progress Notes January Lopez MD - 06/14/2019 1:20 PM EDT Patient: Emi Forte Date of Service: 06/14/2019 Subjective: Emi Forte is a 78-y.o. female who presents for Chief Complaint Patient presents with Follow Up to headaches past 4 days , light headness , and falling has vomited 2xs seems to be sluggish , c/o whole body getting weak Patient with recent CVA, on anticoagulative therapy [place] with complains of increasing L sided weakness, imbalance, fatigue, blurred vision started over the weekend Also complains of persistent headache for 4 days. No head injury. Almost fell 2 days ago, but was caught by her son. Also had episode of vomiting x2 2 days ago No chest pain, SOB, palpitations. Weight - stable Past Medical History: Diagnosis Date Anemia Dr. Ewing Asthma 10/20/2007 Mild, intermittent Chronic kidney disease, stage 4, severely decreased GFR ([facility]) COPD (chronic obstructive pulmonary disease) ([facility]) 11/01/2010 Diabetes mellitus ([facility]) 10/20/2007 eye - 10/2014 , feet - 10/12 Diverticulitis 10/20/2007 History of DJD (degenerative joint disease) knees GERD (gastroesophageal reflux disease) 10/20/2007 HTN (hypertension) 11/01/2010 Hyperlipidemia Mitral regurgitation 10/20/2007 mild Paroxysmal atrial fibrillation ([facility]) 10/20/2007 Peripheral neuropathy 10/20/2007 Secondary to diabetes Seasonal allergies 10/20/2007 Sleep apnea CPAP Outpatient Medications as of 06/14/2019 Medication Sig Dispense Refill Alcohol Swabs ([facility] [...] apply Device USE DIRECTED 1 Each 0 cyanocobalamin (B-12) 500 MCG Oral Tab Take 500 mcg by mouth EVERY MORNING. dicyclomine (BENTYL) 10 MG Oral Cap Take 1 Cap by mouth FOUR TIMES DAILY NEEDED (abdominalcramps). 120 Cap 3 fluticasone (FLONASE) 50 MCG/ACT Nasal Suspension USE 2 SPRAYS IN EACH NOSTRIL ONE TIME A DAY1 Bottle 5 Lgdndexkpbt-Yyaspceot-Klymvq (TRELEGY ELLIPTA) 100-62.5-25 MCG/INH Inhalation AEROSOL POWDER,BREATH [...] in both eyes DAILY. 5 mL 3 Delta-3 Fatty Acids (FISH OIL) 1000 MG Oral [...] and 3 cap pm 150 Cap 3 rivaroxaban (XARELTO) 15 MG Oral Tab Take 15 mg by mouth DAILY. ropinirole (REQUIP) 0.25 MG Oral Tab Take [...] current facility-administered medications on file as of 06/14/2019. Allergies Allergen Reactions Tikosyn [Dofetilide] Other Eggs [Egg Phospholipids, Egg Lecithin] Keflex Swelling Latex Dermatologic Reaction Lovenox Hives Shell Fish Swelling Objective: BP 112/78 (BP Location: Right arm, Patient Position: Sitting) Pulse 78 Temp 98.8 F (37.1 C) Wt 247 lb (112 kg) SpO2 96% BMI 44.46 kg/m2 GENERAL: alert, fatigued HEAD: normocephalic, diffusely tender EYES: conjunctivae/corneas clear. Pupils equal, round, reactive to light. Equal ocular movements intact. THROAT: lips, mucosa, and tongue normal: teeth and gums normal, tongue is in midline NECK: supple, symmetrical, trachea midline. No nuchal rigidity LUNGS: clear to auscultation bilaterally HEART: irregularly irregular rhythm Exam of extremities: no pedal edema noted NEUROLOGIC: Alert and oriented X 3, L arm pronator drift, L arm/L upper leg weakness ICD-9-CM ICD-10-CM 1. Other headache syndrome New onset in patient on anticoagulation R/O intracranial; bleeding 339.89 G44.89 2. Left-sided muscle weakness Worsen. Recent CVA 728.87 M62.81 Patient was transported to [facility] ER by the Ambulance for further evaluation and treatment Author: January Lopez MD documented in this encounter Plan of Treatment Date Type Specialty Care Team Description 06/27/2019 Office Visit Family Practice January Lopez MD [facility] [place] [address] 07/13/2019 Office Visit Cardiology Ta Waddell MD [facility] [place] [address] 08/03/2019 Office Visit Endocrinology Sandra Sherman, SIMEON [address] [place], [place] [address] 08/04/2019 Office Visit Pulmonary Alirio Cabello MD [address] [place] [address] [phone] 08/17/2019 [facility] 12/06/2019 [facility] [...] Problems Progress Blood Pressure Blood Pressure HTN 112/78 No Jessica, < 140/90 (hypertension) (06/14/2019 January, 1:23 PM EDT) Note: Hypertension Care Plan Based [...] Educational Resources: National Heart, Lung, & Blood [place] http://nhlbi.nih.gov/hbp/index.html The DASH Diet Eating Plan http://www.nhlbi.nih.gov/health/health-topics/ topics/dash/ Academy of Nutrition & DIetetics http://eatright.org National Smoking Cessation Site http://smokefree.gov Blood Pressure < Blood Pressure 112/78 (06/14/2019 No January Lopez, 140/90 1:23 PM EDT) Note: This is an individualized treatment (blood pressure) goal for Emi Forte: Displayed above (on the left) is your goal for blood pressure control. Your most recent blood pressure is also shown above, on the right. You should try to achieve blood pressures that are lower than your goal listed above (on the left). Weight increase vs. 18 CHF 19 (06/14/2019 1:23 PM January Chatterjee MD mo min (lbs) [...] 9.7 (05/03/2019 8:06 No January Lopez AM EDT) Note: This is an individualized [...] eating or drinking. record my weight daily. Intacct is safe and secure way for you [...] and any After Visit Summaries. Consume a jk-ubzbx-ikwq diet Lifestyle No January Lopez MD Note: This is an individualized lifestyle goal for Emi Forte: Please do not add additional salt to your food. Additional salt may lead to fluid retention and worsen your congestive heart failure. Take all prescribed medications as Self-management January Chatterjee MD directed Note: This is an individualized [...] of this encounter Implants Implanted Type Area Supervisor Nutritional Yeast Device Shelf Model / Identifier Expiration Serial / Lot Date Accent Dual Chamber [id number] - [id number] Left: ST. SIM 02/26/2012 [id number] / Implanted: Qty: 1 on 11/06/2010 at [facility] [id number] / Lead Tendril # [id number]-52 - [id number] Left: ST SIM 07/28/2013 [id number] / Implanted: Qty: 1 on 11/06/2010 at [facility]/ [place] [id number] / ER Tendril Lead 2087tc/58cm - [id number] Left: ST. SIM 10/28/20138TC/ 58CM / Implanted: Qty: 1 on 11/06/2010 at [facility] [id number] / Bone Cement, Double 80gm - [id number] Right: [id number] [id number] / Implanted: Qty: 1 on 10/20/2011 at [facility] Knee / [id number] Tibial Plate Size 5 Nexgen - [id number] Right: LONA MONCADA 5980-47- 01 / Implanted: Qty: 1 on 10/20/2011 at [facility] [employer] / [id number] Lps-Flex Option Femoral E Rt - [id number] Right: LONA MONCADA 5964-15 -52 / Implanted: Qty: 1 on 10/20/2011 at [facility] [employer] / [id number] Lps-Flex Taper Plugs - [id number] Right: LONA MONCADA / Implanted: Qty: 1 on 10/20/2011 at [facility] [employer] / [id number] Art Surface 12mm Green - [id number] Right: LONA MONCADA / Implanted: Qty: 1 on 10/20/2011 at [facility] [employer] / [id number] Assurity Mri [id number] Generator - [id number] ST. SIM 08/27/2020 [id number] / Implanted: Qty: 1 on 03/11/2019 by Talha Pineda MD at [facility] [id number] / documented as of this encounter Results Not on filedocumented in this encounter Visit Diagnoses Diagnosis Other headache syndrome - Primary Left-sided muscle weakness Muscle weakness (generalized) documented in this encounter Insurance Payer Benefit Plan / Subscriber ID Effective Dates Phone Address Type Group [facility] MEDICARE EXCELLUS xxxxxxxxxxxx Effective for [employer] ADVANTAGE MEDICARE BLUE all dates PPO ([phone]) Guarantor Name Account Type Relation to Date of Phone Billing Address Patient Emi Forte Personal/Family 1940 [id number] (Home) [place], [place] [phone] (Work) documented as of this encounter Advance [...]
--- NOTE | 2019-07-15 19:41 | ED ---
HPI Chest Pain - HPI Summary HPI Summary: This pt is a 67 Y/O F presenting to [facility] accompanied by her family with a CC of swelling located around her left anterior chest with associated pain that is rated a 5/10 in severity. The pt states that she has had a cold for the last 2 weeks prior to the swelling. The area swelled up yesterday and has been decreasing in size. Her PCP recommended a visit to rule out any cardiac issues. The pt states that she has been on ABx treatment for the last 3 days for PNA. Her PCP stated that the pt has been inflamed in the chest area. She states that her PNA symptoms are improving. She currently takes 2 L of oxygen at home daily. She denies ay fevers, N/V, abdominal pains, headaches, and edema. She has no aggravating or alleviating symptoms. She has a PMHx of CAD, CHF, diabetes , and HTN. - History of Current Complaint Chief Complaint: EDGeneral Time Seen by Provider: 07/15/19 19:30 Hx Obtained From: Patient Onset/Duration: Started Days Ago - 1, Still Present, Resolved - states that the condition is improving. Timing: Constant Initial Severity: Severe Current Severity: Moderate Pain Intensity: 5 Pain Scale Used: 0-10 Numeric Chest Pain Location: Left Anterior Chest Pain Radiates: No Aggravating Factor(s): Nothing Alleviating Factor(s): Nothing Associated Signs and Symptoms: Positive: Chest Pain - States the area around her pacemaker is swollen. Negative: Headaches, Shortness of Breath, Fever, Diaphoresis, Abdominal Pain, Vomiting, Edema - Additional Pertinent History Primary Care Physician: SINCERE - Allergy/Home Medications Allergies/Adverse Reactions: Allergies Allergy/AdvReac Type Severity Reaction Status Date / Time latex Allergy Swelling Verified 07/15/19 15:10 shellfish derived Allergy Swelling Verified 07/15/19 15:10 Of Face,Lips,& Throat cephalexin [From Keflex] AdvReac Mild Facial Verified 07/15/19 15:10 Redness/Flushing dofetilide [From Tikosyn] AdvReac Palpitation Verified 07/15/19 15:10 s enoxaparin [From Lovenox] AdvReac "blood too Verified 07/15/19 15:10 thin" NO MRIs - [facility] PACEMAKER Allergy Severe NO MRIs - Uncoded 07/15/19 15:10 [facility] Home Medications: Home Medications Amoxicillin/Clavulanate TAB* [Augmentin TAB 500 mg*] 500 mg PO BID 07/15/19 [ History Confirmed 07/15/19] Fluticasone/Umeclidin/Vilanter [Trelegy Ellipta 100-62.5-25] 1 puff INH DAILY [History Confirmed 07/15/19] Pregabalin CAP(*) [Lyrica CAP(*)] 100 mg PO QAM 07/15/19 [History Confirmed ] Pregabalin CAP(*) [Lyrica CAP(*)] 150 mg PO QPM 07/15/19 [History Confirmed ] Torsemide TAB* [Demadex*] 40 mg PO EVERY OTHER DAY 07/15/19 [History Confirmed 07/15/19] Torsemide TAB* [Demadex*] 60 mg PO EVERY OTHER DAY 07/15/19 [History Confirmed 07/15/19] PMH/Surg Hx/FS Hx/Imm Hx Previously Healthy: Yes Endocrine/Hematology History: Reports: Hx Anticoagulant Therapy, Hx Blood Transfusions, Hx Diabetes, Hx Anemia, Other Endocrine/Hematological Disorders Cardiovascular History: Reports: Hx Angina, Hx Atrial Fibrillation, Hx Auto Implanted Cardiovert Defib, Hx Cardiomegaly, Hx Congestive Heart Failure, Hx Coronary Artery Disease, Hx Hypercholesterolemia, Hx Hypertension, Hx Myocardial Infarction, Hx Pacemaker/ICD, Hx Syncope Denies: Hx Aneurysm, Hx Angioplasty, Hx Cardiac Arrest, Hx Valvular Heart Disease Respiratory History: Reports: Hx Asthma, Hx Chronic Obstructive Pulmonary Disease (COPD) - pt reports 2L O2 via NC prn at home, Hx Pleural Effusion, Hx Pulmonary Edema, Hx Sleep Apnea, Other Respiratory Problems/Disorders - bronchitis, 2nd hand smoke exposure, pulmonary fibrosis GI History: Reports: Hx Diverticulosis, Hx Gall Bladder Disease, Hx Gastroesophageal Reflux Disease, Hx Irritable Bowel, Hx Obstructive Bowel, Other GI Disorders - Enlarged liver, polyps History: Reports: Hx Chronic Renal Failure, Hx Kidney Stones Denies: Hx Renal Disease Musculoskeletal History: Reports: Hx Arthritis, Hx Back Problems, Hx Gout Denies: Hx Osteoporosis Sensory History: Reports: Hx Cataracts, Hx Contacts or Glasses, Hx Vision Problem - blurry, Other Sensory Impairments - Neuropathy Denies: Hx Eye Injury, Hx Eye Prosthesis, Hx Glaucoma, Hx Legally Blind, Hx Macular Degeneration, Hx Deafness, Hx Hearing Aid Opthamlomology History: Reports: Hx Cataracts, Hx Contacts or Glasses, Hx Vision Problem - blurry, Other Sensory Impairments - Neuropathy Denies: Hx Eye Injury, Hx Eye Prosthesis, Hx Glaucoma, Hx Legally Blind, Hx Macular Degeneration Neurological History: Reports: Hx Peripheral Neuropathy Denies: Hx Dementia, Hx Developmental Delay, Hx Headaches, Hx Migraine, Hx Nerve Disease, Hx Seizures, Hx Spinal Cord Injury, Hx Transient Ischemic Attacks (TIA), Other Neuro Impairments/Disorders Psychiatric History: Reports: Hx Anxiety, Hx Depression - Surgical History Surgery Procedure, Year, and Place: Cholecystectomy 29 years ago. Appy 29 years ago. HYSTERECTOMY 29 years ago. Pacemaker placement 2009 Hx Anesthesia Reactions: No - Immunization History Date of Tetanus Vaccine: Unk Date of Influenza Vaccine: Fall 2014 Infectious Disease History: No Infectious Disease History: Denies: Hx Clostridium Difficile, Hx Hepatitis, Hx Human Immunodeficiency Virus (HIV), Hx of Known/Suspected MRSA, Hx Shingles, Hx Tuberculosis, Hx Known/ Suspected VRE, Hx Known/Suspected VRSA, History Other Infectious Disease, Traveled Outside the [place] in Last 30 Days - Family History Known Family History: Positive: Cardiac Disease - Brother with MO at age 34 - Social History Alcohol Use: None Hx Substance Use: Yes Substance Use Type: Reports: None Substance Use Comment - Amount & Last Used: tramadol; oxycodone Hx Tobacco Use: No Smoking Status (MU): Never Smoked Tobacco Have You Smoked in the Last Year: No Review of Systems Negative: Fever Positive: Chest Pain - left anterior Negative: Shortness Of Breath Negative: Abdominal Pain, Vomiting, Nausea Negative: Edema Negative: Headache All Other Systems Reviewed And Are Negative: Yes Physical Exam - Summary Physical Exam Summary: Appearance: Well-appearing, Well-nourished, lying in bed comfortable Skin: Warm, dry, no obvious rash Eyes: sclera anicteric, no conjunctival pallor ENT: mucous membranes moist Neck: deferred Respiratory: No signs of respiratory distress Cardiovascular: Appears well perfused, pulses are nml Abdomen: deferred Musculoskeletal: Moving all 4 extremities without obvious discomfort Neurological: Awake and alert, mentation is normal, speech is fluent and appropriate Psychiatric: affect is normal, does not appear anxious or depressed Triage Information Reviewed: Yes Vital Signs On Initial Exam: Initial Vitals Temp Pulse Resp BP Pulse Ox 97.5 F 70 16 129/63 94 07/15/19 15:06 07/15/19 15:06 07/15/19 15:06 07/15/19 15:06 07/15/19 15:06 Vital Signs Reviewed: Yes Procedures - Sedation Patient Received Moderate/Deep Sedation with Procedure: No Diagnostics - Vital Signs Vital Signs Temp Pulse Resp BP Pulse Ox 07/15/19 16:52 97.7 F 70 16 141/79 93 07/15/19 15:06 97.5 F 70 16 129/63 94 - Laboratory Lab Statement: Any lab studies that have been ordered have been reviewed, and results considered in the medical decision making process. Chest Pain Course/Dx - Course Course Of Treatment: This pt is a 67 Y/O F presenting to [facility] accompanied by her family with a CC of swelling located around her left anterior chest with associated pain that is rated a 5/10 in severity. The pt states that she has had a cold for the last 2 weeks prior to the swelling. The area swelled up yesterday and has been decreasing in size. She denies any SOB, N/V, and headaches. Due to the improvements that she has been stating and her recent Dx of PNA she will be discharged home with instructions to follow up with her PCP and to return to the ED for any new or worsening conditions. Her final Dx is chest wall pain. - Diagnoses Provider Diagnoses: Chest wall pain Discharge ED - Sign-Out/Discharge Documenting (check all that apply): Patient Departure - discharge - Discharge Plan Condition: Stable Disposition: HOME Patient Education Materials: Chest Wall Pain (ED) Referrals: January Lopez MD [Primary Care Provider] - 2 Days Additional Instructions: PLEASE FOLLOW UP WITH YOUR PRIMARY CARE PROVIDER IN 1-3 DAYS. RETURN TO THE EMERGENCY DEPARTMENT FOR ANY NEW OR WORSENING SYMPTOMS. - Billing Disposition and Condition Condition: STABLE Disposition: Home - Attestation Statements Document Initiated by Brittni: Yes Documenting Scribe: Ezra Moss Provider For Whom Brittni is Documenting (Include Credential): Gavin Mccall MD Scribe Attestation: Ezra Norwood scribed for Gavin Mccall MD on 07/16/19 at 1923. Scribe Documentation Reviewed: Yes Provider Attestation: The documentation as recorded by the Ezra irvin accurately reflects the service I personally performed and the decisions made by me, Gavin Mccall MD Status of Scribe Document: Viewed
[2019-07-15 19:51] VITALS: BP 0/0
== END 2019-07-15 19:50 | disposition home or self-care (01) ==
LOC: ED 14:54
DX: R07.89 Other chest pain (principal); E11.22 Type 2 diabetes mellitus with diabetic chronic kidney disease; I13.0 Hypertensive heart and chronic kidney disease with heart failure and stage 1 through stage 4 chronic kidney disease, or unspecified chronic kidney disease; N18.9 Chronic kidney disease, unspecified; I50.9 Heart failure, unspecified; I25.10 Atherosclerotic heart disease of native coronary artery without angina pectoris; I48.91 Unspecified atrial fibrillation; J44.9 Chronic obstructive pulmonary disease, unspecified; K21.9 Gastro-esophageal reflux disease without esophagitis; E78.00 Pure hypercholesterolemia, unspecified; I25.2 Old myocardial infarction; F41.9 Anxiety disorder, unspecified; Z99.81 Dependence on supplemental oxygen; Z95.810 Presence of automatic (implantable) cardiac defibrillator; Z90.49 Acquired absence of other specified parts of digestive tract; Z90.710 Acquired absence of both cervix and uterus; Z88.8 Allergy status to other drugs, medicaments and biological substances; Z88.1 Allergy status to other antibiotic agents; Z91.040 Latex allergy status; Z79.4 Long term (current) use of insulin; Z79.82 Long term (current) use of aspirin; Z79.01 Long term (current) use of anticoagulants; Z79.899 Other long term (current) drug therapy
CPT/HCPCS: 99282

== ENCOUNTER 2019-10-25 15:55 | Emergency (ER) | payer MEDICARE ==
--- OUTSIDE RECORDS SUMMARY | 2019-10-25 16:03 | XMS REPORT ---
:1940 Author Organization [facility] Care Team Providers Name Role Phone Unavailable Unavailable Unavailable Problems Condition Condition Condition Status Onset Resolution Last Treating Comments Name Details Category Date Date Treatment Clinician Date Cerebral Cerebral Diagnosis Active Eufemia infarction, infarction, 06-03 Carrier RN unspecified unspecified Type 2 Type 2 Diagnosis Active Eufemia diabetes diabetes 06-03 Carrier RN mellitus mellitus without without complicatio complicatio ns ns Heart Heart Diagnosis Active Eufemia failure, failure, 06-03 Carrier RN unspecified unspecified Essential Essential Diagnosis Active Eufemia (primary) (primary) 06-03 Carrier RN hypertensio hypertensio n n Chronic Chronic Diagnosis Active Eufemia obstructive obstructive 06-03 Carrier RN pulmonary pulmonary disease, disease, unspecified unspecified Chronic Chronic Diagnosis Active Eufemia kidney kidney 06-03 Carrier RN disease, disease, unspecified unspecified Unspecified Unspecified Diagnosis Active Eufemia atrial atrial Carrier RN fibrillatio fibrillatio n n Gastro-esop Gastro-esop Diagnosis Active Eufemia hageal hageal Carrier RN reflux reflux disease disease without without esophagitis esophagitis Other Other Diagnosis Active Eufemia idiopathic idiopathic Carrier RN peripheral peripheral autonomic autonomic neuropathy neuropathy Anxiety Anxiety Diagnosis Active Eufemia disorder, disorder, Carrier RN unspecified unspecified Major Major Diagnosis Active Eufemia depressive depressive Carrier RN disorder, disorder, recurrent, recurrent, unspecified unspecified Obstructive Obstructive Diagnosis Active Eufemia sleep apnea sleep apnea Carrier RN (adult) (adult) (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) (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 Eufemia (current) (current) Carrier RN use of use of anticoagula anticoagula nts nts retirement retirement Diagnosis Active Eufemia (current) (current) Carrier RN use of use of insulin insulin 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 Eufemia (current) (current) Carrier RN use of use of aspirin aspirin Pain frequent Pain Mgmt Active Claudia pain 06-03 [place] 12:15: [id number] 00 Respiratory lung sounds Respirator Resolve 2019-08-12 Claudia deficit y d 06-03 11:55:00 [place] 12:15: [id number] 00 Respiratory dyspnea Respirator Resolve 2019-08-12 Claudia present y d 06-03 11:55:00 [place] 12:15: [id number] 00 Respiratory oxygen Respirator Resolve 2019-08-12 Claudia treatments y d 06-03 11:55:00 [place] in home 12:15: [id number] 00 Endo/Jono insulin Endo/Jono Active Claudia admn 06-03 [place] dependence 12:15: [id number] 00 Endo/Jono glucose Endo/Jono Active Claudia testing 06-03 [place] dependence 12:15: [id number] 00 Endo/Jono knowledge/s Endo/Jono Resolve 2019-08-12 Claudia kill d 06-03 11:55:00 [place] deficit: pt 12:15: [id number] 00 Endo/Jono knowledge/s Endo/Jono Resolve 2019-08-12 Claudia kill d 06-03 11:55:00 [place] deficit: cg 12:15: [id number] 00 Endo/Jono diabetic Endo/Jono Active Claudia foot care 06-03 [place] 12:15: [id number] 00 Sensory impaired Sensory Resolve 2019-09-08 Claudia hearing d 06-03 12:30:00 [place] 12:15: [id number] 00 Nutrition nutritional Nutrition Resolve 2019-09-08 Claudia restriction d 06-03 12:30:00 [place] 12:15: [id number] 00 Elimination urinary Eliminatio Resolve 2019-07-14 Claudia incontinenc n d 06-03 16:15:00 [place] e 12:15: [id number] 00 Elimination UTI within Eliminatio Resolve 2019-07-14 Claudia past 14 n d 06-03 16:15:00 [place] days 12:15: [id number] 00 Neuro confusion Neuro/Emot Resolve 2019-09-08 Claudia present ion d 06-03 12:30:00 [place] 12:15: [id number] 00 Neuro impaired Neuro/Emot Resolve 2019-09-08 Claudia decision-ma ion d 06-03 12:30:00 [facility] 12:15: [id number] 00 Neuro memory Neuro/Emot Resolve 2019-09-08 Claudia deficit ion d 06-03 12:30:00 [place] needing 12:15: [id number] supervision 00 Activity ADL Activity Resolve 2019-09-08 Claudia assistance d 06-03 12:30:00 [place] required 12:15: [id number] 00 Activity self-care Activity Unknown Claudia deficit 06-03 [place] 12:15: [id number] 00 Safety structural Safety Active Claudia barriers 06-03 [place] present 12:15: [id number] 00 Safety cannot be Safety Active Claudia left alone 06-03 [place] 12:15: [id number] 00 Safety fall risk Safety Active Claudia factor 06-03 [place] present 12:15: [id number] 00 Safety risk for Safety Active Claudia hospitaliza 06-03 [place] tion 12:15: [id number] 00 Medication oral med Meds Active Claudia assistance 06-03 [place] required 12:15: [id number] 00 Medication injectable Meds Active Claudia med 06-03 [place] assistance 12:15: [id number] required 00 Medication knowledge/s Meds Active Claudia kill 06-03 [place] deficit: pt 12:15: [id number] 00 Medication potential Meds Active Claudia clinically 06-03 [place] significant 12:15: [id number] medication 00 issue Diagnoses knowledge/s Diagnoses Active Claudia kill 06-03 [place] deficit: cg 12:15: [id number] 00 Musculoskel transfer Musculoske Resolve 2019-07-23 Claudia etal assistance letal d 06-03 09:25:00 [place] required 12:15: [id number] 00 Musculoskel requires Musculoske Resolve 2019-07-23 Claudia etal human letal d 06-03 09:25:00 [place] assist to 12:15: [id number] leave home 00 Endo/Jono anti-coagul Endo/Jono Resolve 2019-08-12 Paige augustin d 06-06 11:55:00 Rege[place] therapy 11:20: [id number] 00 Elimination constipatio Eliminatio Resolve 2019-07-14 Paige berman n d 06-06 16:15:00 [place] 11:20: [id number] 00 Cardio edema Cardiovasc Resolve 2019-08-12 Veronica guillen d 06-09 11:55:00 Suj[place] 10:30: [id number] 00 Safety can be left Safety Active Veronica alone for 06-09 Sujata only short 10:30: [id number] periods 00 24 Hr Diet nutrition NT: 24Hr Resolve 2019-06-24 Mary intake Diet d 06-10 16:15:00 [place] deficit 15:45: [id number] 00 24 Hr Diet knowledge/s NT: 24Hr Resolve 2019-06-10 Mary kill Diet d 06-10 15:45:00 [place] deficit - 15:45: [id number] pt 00 24 Hr Diet knowledge/s NT: 24Hr Resolve 2019-06-10 Mary kill Diet d 06-10 15:45:00 [place] deficit - 15:45: [id number] cg 00 Nutritional eating NT: Resolve 2019-06-10 Mary Barrier difficultie Barriers d 06-10 15:45:00 [place] s present 15:45: [id number] 00 Nutritional knowledge/s NT: Resolve 2019-06-10 Mary Barrier kill Barriers d 06-10 15:45:00 [place] deficit - 15:45: [id number] pt 00 24 Hr Diet knowledge/s NT: 24Hr Resolve 2019-06-24 Veronica kill Diet d 06-14 16:15:00 Sujata deficit - 10:40: [id number] pt 00 Nutritional swallowing NT: Resolve 2019-06-24 Silas Barrier difficultie Barriers d 06-20 16:15:00 [place] s present 16:00: [id number] 00 Nutritional knowledge/s NT: Resolve 2019-06-24 Silas Barrier kill Barriers d 06-20 16:15:00 [place] deficit - 16:00: [id number] pt 00 Nutritional food NT: Resolve 2019-06-24 Silas Barrier consistency Barriers d 06-20 16:15:00 [place] requirement 16:00: [id number] [address]: Speech Resolve 2019-07-01 Silas production Prod d 06-20 13:30:00 [place] deficit 16:00: [id number] 00 Speech Prod knowledge/s ST: Speech Resolve 2019-07-01 Silas kill Prod d 06-20 13:30:00 [place] deficit - 16:00: [id number] pt [address]: Resolve 2019-07-01 Silas deficit Swallowing d 06-20 13:30:00 [place] 16:00: [id number] 00 Swallowing knowledge/s ST: Resolve 2019-07-01 Silas kill Swallowing d 06-20 13:30:00 [place] deficit - 16:00: [id number] pt 00 Social knowledge/s RAMA: Active [facility] kill Social 06-21 [place] deficit - Services 13:00: [id number] pt 00 Social knowledge/s RAAM: Active [facility] kill Social 24 [place] deficit - Services 13:00: [id number] cg 00 Respiratory nebulizer Respirator Resolve 2019-08-12 Eufemia treatment y d 06-24 11:55:00 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 14:45: 00 24 Hr Diet knowledge/s NT: 24Hr Resolve 2019-06-24 Mary kill Diet d 06-24 16:15:00 [place] deficit - 16:15: [id number] cg 00 Nutritional swallowing NT: Resolve 2018-092019-08-01 Silas Barrier difficultie Barriers d 0-01 11:00:00 [place] s present 14:45: [id number] 00 Nutritional knowledge/s NT: Resolve 2018-092019-08-01 Silas Barrier kill Barriers d 0-01 11:00:00 [place] deficit - 14:45: [id number] pt 00 Nutritional food NT: Resolve 2018-092019-08-01 Silas Barrier consistency Barriers d 0-01 11:00:00 [place] requirement 14:45: [id number] 00 Speech Prod knowledge/s ST: Speech Resolve 2018-092019-08-01 Eufemia kill Prod d 0-07 11:00:00 Carrier RN deficit - 16:30: pt 00 Neuro anxiety Neuro/Emot Resolve 2018-092019-09-08 Paige present ion d 0-17 12:30:00 Rege[place]zi 16:15: [id number] 00 Respiratory knowledge/s Respirator Resolve 2018-092019-08-12 Eufemia kill y d 0-21 11:55:00 Carrier RN deficit: pt 12:05: 00 Cardio pacemaker/I Cardiovasc Resolve 2018-092019-08-11 Eufemia CD ular d 10-01 12:00:00 Carrier RN 11:00: 00 Respiratory CPAP Respirator Resolve 2018-092019-08-12 Eufemia treatments y d 10-01 11:55:00 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 11:00: 00 Integument skin Integument Resolve 2018-092019-08-12 Eufemia integrity d 10-01 11:55:00 Carrier RN risk 11:00: 00 Activity self-care Activity Unknown 2018-09 Eufemia deficit 04 Carrier RN 11:00: 00 Musculoskel transfer Musculoske Resolve 2018-092019-09-08 Eufemia etal assistance letal d 10-01 12:30:00 Carrier RN required 11:00: 00 Musculoskel requires Musculoske Resolve 2018-092019-09-08 Eufemia etal human letal d 04 12:30:00 Carrier RN assist to 11:00: leave home 00 Activity self-care Activity Unknown 2018-09 [place] deficit 1-12 [place] 15:30: [id number] 00 Neuro depressive Neuro/Emot Resolve 2018-092019-09-08 Lori feelings ion d 1-15 12:30:00 [place] present 11:55: 00 Activity self-care Activity Resolve 2018-092019-08-12 Lori deficit d 15 11:55:00 [place] 11:55: 00 Respiratory dyspnea Respirator Active 2018-09 Veronica chavez y 10-18 Suj[place] 10:50: [id number] 00 Endo/Jono anti-coagul Endo/Jono Resolve 2018-092019-09-08 Veronica augustin d 10-18 12:30:00 Sujata therapy 10:50: [id number] 00 Elimination urinary Eliminatio Resolve 2018-092019-10-06 Veronica incontinenc n d 10-18 16:45:00 Sujata e 10:50: [id number] 00 Elimination UTI within Eliminatio Active 2018-09 Veronica past 14 n 10-18 Sujata days 10:50: [id number] 00 Elimination constipatio Eliminatio Resolve 2018-092019-10-06 Veronica n n d 10-18 16:45:00 Suj[place] 10:50: [id number] 00 Elimination diarrhea Eliminatio Resolve 2018-092019-10-06 Veronica n d 10-18 16:45:00 Suj[place] 10:50: [id number] 00 Respiratory oxygen Respirator Active 2018-09 Veronica treatments y 10-26 Sujata in home 11:30: [id number] 00 Cardio pacemaker/I Cardiovasc Active 2018-09 Veronica CD ular 11-03 Sujata 11:48: [id number] 00 Respiratory nebulizer Respirator Active 2018-09 Eufemia treatment y 2-10 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 12:25: 00 Nutrition nutritional Nutrition Resolve 2018-092019-09-23 Eufemia restriction d 2-18 16:45:00 Carrier RN s 12:15: 00 Respiratory knowledge/s Respirator Unknown 2018-09 Eufemia kill y 2-20 Carrier RN deficit: pt 13:20: 00 Cardio hypertensio Cardiovasc Active 2018-09 Eufemia n ular 2-27 Carrier RN 16:45: 00 Respiratory knowledge/s Respirator Active 2018-09 Eufemia kill y 2-27 Carrier RN deficit: pt 16:45: 00 Nutrition nutritional Nutrition Resolve 2018-092019-10-06 Macie restriction d 2- 16:45:00 [place] s 10:45: [id number] 00 Activity ADL Activity Active Eufemia assistance 09-29 Carrier RN required 15:30: 00 Musculoskel transfer Musculoske Active Eufemia etal assistance letal 09-29 Carrier RN required 15:30: 00 Musculoskel requires Musculoske Active Eufemia etal human letal 09-29 Carrier RN assist to 15:30: leave home 00 Allergies, Adverse Reactions, Alerts Allergy Name Allergy Status Severity Reaction(s) Onset Inactive Treating Comments Type Date Date Clinician cephalexin Base Active Unknown Reaction [place] Ingredient Unknown 2-14 Luis enoxaparin Base Active Unknown Reaction [place] Ingredient Unknown 2-14 Luis dofetilide Base Active Unknown Reaction [place] Ingredient Unknown 2-14 Luis latex Base Active Unknown Reaction [place] Ingredient Unknown 2-14 Luis shellfish Base Active Unknown Reaction [place] derived Ingredient Unknown 214 Luis eggs Unknown Active Unknown Nausea and Eufemia vomiting 09-29 Carrier RN Medications Ordered Filled Start Stop Current Ordering Indication Dosage Frequency Signature Comments Components Medication Medication Date Date Medication? Clinician (SIG) Name Name aspirin 81 aspirin 81 2018- No Galyanova Unknown Unknown mg chewable mg chewable 06-03 Genia ALDRIDGE tablet tablet na ondansetron ondansetron 2018- No [place] Unknown Unknown 4 mg 4 mg 06-03 Genia ALDRIDGE disintegrat disintegrat na ing tablet ing tablet rivaroxaban rivaroxaban 2018- No [place] Unknown Unknown 15 mg 15 mg 06-03 Genia ALDRIDGE tablet tablet na Lantus Lantus 2018- No [place] Unknown Unknown Solostar Solostar 06-03 Genia ALDRIDGE U-100 U-100 na Insulin 100 Insulin 100 unit/mL (3 unit/mL (3 mL) mL) subcutaneou subcutaneou s pen s pen HumaLOG HumaLOG No [place] Unknown Unknown Kp Pk 06-03 Genia ALDRIDGE KwikPen KwikPen na (U-100) 100 (U-100) 100 unit/mL unit/mL subcutaneou subcutaneou s half-unit s half-unit pen pen metoprolol metoprolol No Galgabrielaova Unknown Unknown succinate succinate 06-03 Genia ALDRIDGE ER 100 mg ER 100 mg na tablet,exte tablet,exte nded nded release 24 release 24 hr hr montelukast montelukast No [place] Unknown Unknown 10 mg 10 mg 06-03 Genia ALDRIDGE tablet tablet na Vitamin D3 Vitamin D3 No Jessica Unknown Unknown 2,000 unit 2,000 unit 06-03 MD,Genia tablet tablet na omeprazole omeprazole No [place] Unknown Unknown 40 mg 40 mg 06-03 MD,Genia capsule,del capsule,del na ayed ayed release release dicyclomine dicyclomine No [place] Unknown Unknown 10 mg 10 mg 06-03 MD,Genia capsule capsule na rOPINIRole rOPINIRole 2018- No [place] Unknown Unknown 0.25 mg 0.25 mg 06-03 MD,Genia tablet tablet na metOLazone metOLazone 2018- No [place] Unknown Unknown 2.5 mg 2.5 mg 06-03 MD,Genia tablet tablet na Trelegy Trelegy No [place] Unknown Unknown Ellipta 100 Ellipta 100 06-03 ,Genia mcg-62.5 mcg-62.5 na mcg-25 mcg mcg-25 mcg powder for powder for inhalation inhalation allopurinol allopurinol 2018- No [place] Unknown Unknown 100 mg 100 mg 06-03- MD,Genia tablet tablet na albuterol albuterol No [place] Unknown Unknown sulfate HFA sulfate HFA 06-03 ,Genia 90 90 na mcg/actuati mcg/actuati on aerosol on aerosol inhaler inhaler Tradjenta 5 Tradjenta 5 2018- No [place] Unknown Unknown mg tablet mg tablet 06-03 10 ,Genia na pravastatin pravastatin No [place] Unknown Unknown 80 mg 80 mg 06-03 MD,Genia tablet tablet na polyethylen polyethylen No [place] Unknown Unknown e glycol e glycol 06-03 ,Genia 3350 (bulk) 3350 (bulk) na powder powder [place] 3-6-9 [place] 3-6-9 2018- No [place] Unknown Unknown 1,200 mg 1,200 mg 06-03 MD,Genia capsule capsule na olopatadine olopatadine No [place] Unknown Unknown 0.1 % eye 0.1 % eye 06-03 MD,Genia drops drops na Vitamin Vitamin No [place] Unknown Unknown B-12 500 B-12 500 06-03 MD,Genia mcg tablet mcg tablet na bisacodyl 5 bisacodyl 5 No [place] Unknown Unknown mg mg 06-03 MD,Genia tablet,fela tablet,fela na yed release yed release HYDROcodone HYDROcodone 2018- No [place] Unknown Unknown 5 5 06-03 MD,Genia mg-acetamin mg-acetamin na ophen 325 ophen 325 mg tablet mg tablet torsemide torsemide No [place] Unknown Unknown 20 mg 20 mg 06-03 MD,Genia tablet tablet na pregabalin pregabalin 2018- No [place] Unknown Unknown 150 mg 150 mg 06-03 MD,Genia capsule capsule na pregabalin pregabalin 2018- No [place] Unknown Unknown 100 mg 100 mg 06-03 MD,Genia capsule capsule na cyclobenzap cyclobenzap 2018- No [place] Unknown Unknown rine 10 mg rine 10 mg 06-03 MD,Genia tablet tablet na Lantus Lantus 2018- No [place] Unknown Unknown Solostar Solostar 06-06 MD,Genia U-100 U-100 na Insulin 100 Insulin 100 unit/mL (3 unit/mL (3 mL) mL) subcutaneou subcutaneou s pen s pen Aspirin Low Aspirin Low No [place] Unknown Unknown Dose 81 mg Dose 81 mg 06-03 MD,Genia tablet,fela tablet,fela na yed release yed release metOLazone metOLazone 2018- No [place] Unknown Unknown 2.5 mg 2.5 mg 06-07 MD,Genia tablet tablet na Eliquis 5 Eliquis 5 No [place] Unknown Unknown mg tablet mg tablet 06-17 MD,Genia na senna 8.6 senna 8.6 2018- No [place] Unknown Unknown mg tablet mg tablet 06-17 MD,Genia na HYDROcodone HYDROcodone No [place] Unknown Unknown 10 06-22 MD,Genia mg-acetamin mg-acetamin na ophen 300 ophen 300 mg tablet mg tablet spironolact spironolact 2018-09 No [place] Unknown Unknown one 50 mg one 50 mg 0-04 MD,Genia tablet tablet na rOPINIRole rOPINIRole No [place] Unknown Unknown 0.25 mg 0.25 mg 9-06 MD,Genia tablet tablet na omega-3s omega-3s 2018-09 No [place] Unknown Unknown 300 300 0-14 MD,Genia mg-dha-epa- mg-dha-epa- na other other [id number] h oil 1,000 h oil 1,000 mg capsule mg capsule pregabalin pregabalin 2018-09- No [place] Unknown Unknown 50 mg 50 mg 0-14 10-22 MD,Genia capsule capsule na Lantus Lantus 2018-09- No [place] Unknown Unknown Solostar Solostar 0-14 10-31 MD,Genia U-100 U-100 na Insulin 100 Insulin 100 unit/mL (3 unit/mL (3 mL) mL) subcutaneou subcutaneou s pen s pen sennosides sennosides 2018-09 Yes [place] Unknown Unknown 8.6 8.6 0-17 MD,Genia mg-docusate mg-docusate na sodium 50 sodium 50 mg tablet mg tablet potassium potassium 2018-09 No [place] Unknown Unknown chloride ER chloride ER 0-14 MD,Genia 20 mEq 20 mEq na tablet,exte tablet,exte nded nded release release fluticasone fluticasone 2018-09 No [place] Unknown Unknown propionate propionate 0-14 MD,Genia 50 50 na mcg/actuati mcg/actuati on nasal on nasal spray,suspe spray,suspe nsion nsion guaiFENesin guaiFENesin 2018-09 No [place] Unknown Unknown ER 600 mg ER 600 mg 0-14 MD,Genia tablet, tablet, na extended extended release 12 release 12 hr hr metOLazone metOLazone 2018-09 No [place] Unknown Unknown 2.5 mg 2.5 mg 0-14 MD,Genia tablet tablet na doxycycline doxycycline 2018-09- No [place] Unknown Unknown hyclate 100 hyclate 100 0-16 12-16 MD,Genia mg capsule mg capsule na pregabalin pregabalin 2018-09 Yes [place] Unknown Unknown 50 mg 50 mg 0-22 MD,Genia capsule capsule na allopurinol allopurinol 2018-09 Yes [place] Unknown Unknown 100 mg 100 mg 0-21 MD,Genia tablet tablet na Baldev Andrew 2018-09- Yes Law Unknown Unknown U-300 U-300 0-31 12-09 Abimael ALDRIDGE SoloStar 300 unit/mL 300 unit/mL (3 mL) (3 mL) subcutaneou subcutaneou s insulin s insulin pen pen Adlyxin 10 Adlyxin 10 2018-09- Yes Law Unknown Unknown mcg/0.2 mcg/0.2 1-18 12-03 Abimael ALDRIDGE mL-20 mL-20 mcg/0.2 mL mcg/0.2 mL subcutaneou subcutaneou s pen s pen injector injector Adlyxin 10 Adlyxin 2018-09 Yes Law Unknown Unknown mcg/0.2 mcg/0.2 2-03 Abimael ALDRIDGE mL-20 mL-20 mcg/0.2 mL mcg/0.2 mL subcutaneou subcutaneou s pen s pen injector injector Touben Castorenao Kamran 2018-09 Yes Law Unknown Unknown U-300 U-300 2-09 Abimael ALDRIDGE SoloStar 300 unit/mL 300 unit/mL (3 mL) (3 mL) subcutaneou subcutaneou s insulin s insulin pen pen Vital Signs Vital Name Observation Time Observation Value Comments SYSTOLIC mm[Hg] 2019-10-06 18:09:47 130 mm[Hg] mm[Hg] Method: Sit SYSTOLIC mm[Hg] 2019-06-17 18:07:56 120 mm[Hg] mm[Hg] Method: Stand DIASTOLIC mm[Hg] 2019-10-06 18:09:47 80 mm[Hg] mm[Hg] Method: Sit DIASTOLIC mm[Hg] 2019-06-17 18:07:56 66 mm[Hg] mm[Hg] Method: Stand PULSE 2019-10-06 18:09:47 70 /min /min RESP RATE 2019-10-06 18:09:47 18 /min /min TEMP 2019-10-06 18:09:47 97.5 [degF] Procedures This patient has no known procedures. Results This patient has no known results.
--- OUTSIDE RECORDS SUMMARY | 2019-10-25 16:03 | XMS REPORT ---
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 Diagnosis Active Eufemia (current) (current) Carrier RN use of use of aspirin aspirin Pain frequent Pain Mgmt Active Claudia pain 06-03 [place] 12:15: [id number] 00 Respiratory lung sounds Respirator Resolve 2019-08-12 Claudia deficit y d 06-03 11:55:00 [place] 12:15: [id number] 00 Respiratory dyspnea Respirator Resolve 2019-08-12 Claudia present y d 06-03 11:55:00 [place] 12:15: [id number] 00 Respiratory oxygen Respirator Resolve 2019-08-12 Claudia treatments y d 06-03 11:55:00 [place] in home 12:15: [id number] 00 Endo/Jono insulin Endo/Jono Active Claudia admn 06-03 [place] dependence 12:15: [id number] 00 Endo/Jono glucose Endo/Jono Active Claudia testing 06-03 [place] dependence 12:15: [id number] 00 Endo/Jono knowledge/s Endo/Jono Resolve 2019-08-12 Claudia kill d 06-03 11:55:00 [place] deficit: pt 12:15: [id number] 00 Endo/Jono knowledge/s Endo/Jono Resolve 2019-08-12 Claudia kill d 06-03 11:55:00 [place] deficit: cg 12:15: [id number] 00 Endo/Jono diabetic Endo/Jono Active Claudia foot care 06-03 [place] 12:15: [id number] 00 Sensory impaired Sensory Resolve 2019-09-08 Claudia hearing d 06-03 12:30:00 [place] 12:15: [id number] 00 Nutrition nutritional Nutrition Resolve 2019-09-08 Claudia restriction d 06-03 12:30:00 [place] s 12:15: [id number] 00 Elimination urinary Eliminatio Resolve 2019-07-14 Claudia incontinenc n d 06-03 16:15:00 [place] e 12:15: [id number] 00 Elimination UTI within Eliminatio Resolve 2019-07-14 Claudia past 14 n d 06-03 16:15:00 [place] days 12:15: [id number] 00 Neuro confusion Neuro/Emot Resolve 2019-09-08 Claudia present ion d 06-03 12:30:00 [place] 12:15: [id number] 00 Neuro impaired Neuro/Emot Resolve 2019-09-08 Claudia decision-ma ion d 06-03 12:30:00 [facility] 12:15: [id number] 00 Neuro memory Neuro/Emot Resolve 2019-09-08 Claudia deficit ion d 06-03 12:30:00 [place] needing 12:15: [id number] supervision 00 Activity ADL Activity Resolve 2019-09-08 Claudia assistance d 06-03 12:30:00 [place] required 12:15: [id number] 00 Activity self-care Activity Unknown Claudia deficit 06-03 [place] 12:15: [id number] 00 Safety structural Safety Active Claudia barriers 06-03 [place] present 12:15: [id number] 00 Safety cannot be Safety Active Claudia left alone 06-03 [place] 12:15: [id number] 00 Safety fall risk Safety Active Claudia factor 06-03 [place] present 12:15: [id number] 00 Safety risk for Safety Active Claudia hospitaliza 06-03 [place] tion 12:15: [id number] 00 Medication oral med Meds Active Claudia assistance 06-03 [place] required 12:15: [id number] 00 Medication injectable Meds Active Claudia med 06-03 [place] assistance 12:15: [id number] required 00 Medication knowledge/s Meds Active Claudia kill 06-03 [place] deficit: pt 12:15: [id number] 00 Medication potential Meds Active Claudia clinically 06-03 [place] significant 12:15: [id number] medication 00 issue Diagnoses knowledge/s Diagnoses Active Claudia kill 06-03 [place] deficit: cg 12:15: [id number] 00 Musculoskel transfer Musculoske Resolve 2019-07-23 Claudia etal assistance letal d 06-03 09:25:00 [place] required 12:15: [id number] 00 Musculoskel requires Musculoske Resolve 2019-07-23 Claudia etal human letal d 06-03 09:25:00 [place] assist to 12:15: [id number] leave home 00 Endo/Jono anti-coagul Endo/Jono Resolve 2019-08-12 Paige augustin d 06-06 11:55:00 [place] therapy 11:20: [id number] 00 Elimination constipatio Eliminatio Resolve 2019-07-14 Paige berman n d 06-06 16:15:00 [place] 11:20: [id number] 00 Cardio edema Cardiovasc Resolve 2019-08-12 Veronica guillen d 06-09 11:55:00 [place] 10:30: [id number] 00 Safety can be left Safety Active Veronica alone for 06-09 Sujata only short 10:30: [id number] periods 00 24 Hr Diet nutrition NT: 24Hr Resolve 2019-06-24 Mary intake Diet d 06-10 16:15:00 [place] deficit 15:45: [id number] 00 24 Hr Diet knowledge/s NT: 24Hr Resolve 2019-06-10 Mary kill Diet d 06-10 15:45:00 [place] deficit - 15:45: [id number] pt 00 24 Hr Diet knowledge/s NT: 24Hr Resolve 2019-06-10 Mary kill Diet d 06-10 15:45:00 [place] deficit - 15:45: [id number] cg 00 Nutritional eating NT: Resolve 2019-06-10 Mary Barrier difficultie Barriers d 06-10 15:45:00 [place] s present 15:45: [id number] 00 Nutritional knowledge/s NT: Resolve 2019-06-10 Mary Barrier kill Barriers d 06-10 15:45:00 [place] deficit - 15:45: [id number] pt 00 24 Hr Diet knowledge/s NT: 24Hr Resolve 2019-06-24 Veronica kill Diet d 06-14 16:15:00 [place] deficit - 10:40: [id number] pt 00 Nutritional swallowing NT: Resolve 2019-06-24 Silas Barrier difficultie Barriers d 06-20 16:15:00 [place] s present 16:00: [id number] 00 Nutritional knowledge/s NT: Resolve 2019-06-24 Silas Barrier kill Barriers d 06-20 16:15:00 [place] deficit - 16:00: [id number] pt 00 Nutritional food NT: Resolve 2019-06-24 Silas Barrier consistency Barriers d 06-20 16:15:00 [place] requirement 16:00: [id number] [address]: Speech Resolve 2019-07-01 Silas production Prod d 06-20 13:30:00 [place] deficit 16:00: [id number] 00 Speech Prod knowledge/s ST: Speech Resolve 2019-07-01 Silas kill Prod d 06-20 13:30:00 [place] deficit - 16:00: [id number] pt [address]: Resolve 2019-07-01 Silas deficit Swallowing d 06-20 13:30:00 [place] 16:00: [id number] 00 Swallowing knowledge/s ST: Resolve 2019-07-01 Silas kill Swallowing d 06-20 13:30:00 [place] deficit - 16:00: [id number] pt 00 Social knowledge/s RAMA: Active [facility] kill Social 06-21 [place] deficit - Services 13:00: [id number] pt 00 Social knowledge/s RAMA: Active [facility] kill Social 24 [place] deficit - Services 13:00: [id number] cg 00 Respiratory nebulizer Respirator Resolve 2019-08-12 Eufemia treatment y d 06-24 11:55:00 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 14:45: 00 24 Hr Diet knowledge/s NT: 24Hr Resolve 2019-06-24 Mary kill Diet d 06-24 16:15:00 [place] deficit - 16:15: [id number] cg 00 Nutritional swallowing NT: Resolve 2018-092019-08-01 Silas Barrier difficultie Barriers d 0-01 11:00:00 [place] s present 14:45: [id number] 00 Nutritional knowledge/s NT: Resolve 2018-092019-08-01 Silas Barrier kill Barriers d 0-01 11:00:00 [place] deficit - 14:45: [id number] pt 00 Nutritional food NT: Resolve 2018-092019-08-01 Silas Barrier consistency Barriers d 0-01 11:00:00 [place] requirement 14:45: [id number] 00 Speech Prod knowledge/s ST: Speech Resolve 2018-092019-08-01 Eufemia kill Prod d 0-07 11:00:00 Carrier RN deficit - 16:30: pt 00 Neuro anxiety Neuro/Emot Resolve 2018-092019-09-08 Paige present ion d 0-17 12:30:00 [place] 16:15: [id number] 00 Respiratory knowledge/s Respirator Resolve 2018-092019-08-12 Eufemia [...] Unknown 2018-09 [place] deficit 1-12 [place] 15:30: [id number] 00 Neuro depressive Neuro/Emot Resolve 2018-092019-09-08 Lori feelings ion d 1-15 12:30:00 [place] present 11:55: 00 Activity self-care Activity Resolve 2018-092019-08-12 Lori deficit d 15 11:55:00 [place] 11:55: 00 Respiratory dyspnea Respirator Active 2018-09 Veronica chavez y 10-18 [place] 10:50: [id number] 00 Endo/Jono anti-coagul Endo/Jono Resolve 2018-092019-09-08 Veronica augustin d 10-18 12:30:00 [place] therapy 10:50: [id number] 00 Elimination urinary Eliminatio Resolve 2018-092019-10-06 Veronica incontinenc n d 10-18 16:45:00 Suj[place] e 10:50: [id number] 00 Elimination UTI within Eliminatio Active 2018-09 Veronica past 14 n 10-18 Sujata days 10:50: [id number] 00 Elimination constipatio Eliminatio Resolve 2018-092019-10-06 Veronica n n d 10-18 16:45:00 [place] 10:50: [id number] 00 Elimination diarrhea Eliminatio Resolve 2018-092019-10-06 Veronica n d 10-18 16:45:00 [place] 10:50: [id number] 00 Respiratory oxygen Respirator Active 2018-09 Veronica treatments y 10-26 Suj[place] in home 11:30: [id number] 00 Cardio pacemaker/I Cardiovasc Active 2018-09 Veronica CD ular 11-03 [place] 11:48: [id number] 00 Respiratory nebulizer Respirator Active 2018-09 Eufemia [...] restriction d 2- 16:45:00 [place] s 10:45: [id number] 00 Activity ADL Activity Active Eufemia assistance 09-29 Carrier RN required 15:30: 00 Musculoskel transfer Musculoske Active Eufemia etal assistance letal 09-29 Carrier RN required 15:30: 00 Musculoskel requires Musculoske Active Eufemia etal human letal 09-29 Carrier RN assist to 15:30: leave home 00 Nutrition nutritional Nutrition Active Eufemia restriction 16 Carrier RN s 16:15: 00 Allergies, Adverse Reactions, Alerts Allergy Name Allergy Status Severity Reaction(s) Onset Inactive Treating Comments Type Date Date Clinician cephalexin Base Active Unknown Reaction [place] Ingredient Unknown 2-14 Luis enoxaparin Base Active Unknown Reaction [place] Ingredient Unknown 2-14 Luis dofetilide Base Active Unknown Reaction [place] Ingredient Unknown 2-14 Luis latex Base Active Unknown Reaction [place] Ingredient Unknown 2-14 Luis shellfish Base Active Unknown Reaction [place] derived Ingredient Unknown 2-14 Luis eggs Unknown Active Unknown Nausea and [...] pen HumaLOG HumaLOG No Galyanova Unknown Unknown Pk Pk 06-03 Genia ALDRIDGE KwikPen KwikPen na (U-100) 100 (U-100) 100 unit/mL unit/mL subcutaneou subcutaneou s half-unit s half-unit pen pen metoprolol metoprolol No Jessica Unknown Unknown succinate succinate 06-03 Genia ALDRIDGE ER 100 mg ER 100 mg na tablet,exte tablet,exte nded nded release 24 release 24 hr hr montelukast montelukast No Jessica Unknown Unknown 10 mg 10 mg 06-03 Genia ALDRIDGE tablet tablet na Vitamin D3 Vitamin D3 No Galyanova Unknown Unknown 2,000 unit 2,000 unit 06-03 MD,Genia tablet tablet na omeprazole omeprazole No Galyanova Unknown Unknown 40 mg 40 mg 06-03 MD,Genia capsule,del capsule,del na ayed ayed release release dicyclomine dicyclomine No [place]alyanova Unknown Unknown 10 mg 10 mg 06-03 MD,Genia capsule capsule na rOPINIRole rOPINIRole 2018- No [place] Unknown Unknown 0.25 mg 0.25 mg 06-03- MD,Genia tablet tablet na metOLazone metOLazone 2018- No [place] Unknown Unknown 2.5 mg 2.5 mg 06-03 MD,Genia tablet tablet na Trelegy Trelegy No [place] Unknown Unknown Ellipta 100 Ellipta 100 06-03 MD,Genia mcg-62.5 mcg-62.5 na mcg-25 mcg mcg-25 mcg powder for powder for inhalation inhalation allopurinol allopurinol 2018- No [place] Unknown Unknown 100 mg 100 mg 06-03 10- MD,Genia tablet tablet na albuterol albuterol No [place] Unknown Unknown sulfate HFA sulfate HFA 06-03 MD,Genia 90 90 na mcg/actuati mcg/actuati on aerosol on aerosol inhaler inhaler Tradjenta 5 Tradjenta 5 2018- No [place] Unknown Unknown mg tablet mg tablet 06-03 10-30 MD,Genia na pravastatin pravastatin No [place] Unknown Unknown 80 mg 80 mg 06-03 MD,Genia tablet tablet na polyethylen polyethylen No [place] Unknown Unknown e glycol e glycol 06-03 MD,Genia 3350 (bulk) 3350 (bulk) na powder powder Hallett 3-6-9 Hallett 3-6-9 2018- No [place]alyanova Unknown Unknown 1,200 mg 1,200 mg 06-03 10- MD,Genia capsule capsule na olopatadine olopatadine No [place] Unknown Unknown 0.1 % eye 0.1 % eye 06-03 MD,Genia drops drops na Vitamin Vitamin No [place] Unknown Unknown B-12 500 B-12 500 - MD,Genia mcg tablet mcg tablet na bisacodyl [...] HYDROcodone HYDROcodone No [place]alyanova Unknown Unknown 10 10 06-22 MD,Genia mg-acetamin mg-acetamin na ophen 300 ophen 300 mg tablet mg tablet spironolact spironolact 2018-09 No [place] Unknown Unknown one 50 mg one 50 mg 0-04 MD,Genia tablet tablet na rOPINIRole rOPINIRole No [place] Unknown Unknown 0.25 mg 0.25 mg 9-06 MD,Genia tablet tablet na omega-3s omega-3s 2018-09 No [place] Unknown Unknown 300 300 0-14 MD,Genia mg-dha-epa- mg-dha-epa- na other other [id number] h oil 1,000 h oil 1,000 mg capsule mg capsule pregabalin pregabalin 2018-09- No [place] Unknown Unknown 50 mg 50 mg 0-14 10-22 MD,Genia capsule capsule na Lantus Lantus 2018-09- No [place] Unknown Unknown Solostar Solostar 0-14 10-31 MD,Genia U-100 U-100 na Insulin 100 Insulin 100 unit/mL (3 unit/mL (3 mL) mL) [facility] 2018-09 No [place] Unknown Unknown 8.6 8.6 0-17 MD,Genia mg-docusate mg-docusate na sodium 50 sodium 50 mg tablet mg tablet potassium potassium 2018-09 No [place] Unknown Unknown chloride ER chloride ER 0-14 MD,Genia 20 mEq 20 mEq na tablet,exte tablet,exte nded nded release release fluticasone fluticasone 2018-09 No Galyanafraz Unknown Unknown propionate propionate 0-14 MD,Genia 50 [...] tablet tablet na doxycycline doxycycline 2018-09- No Galyanfaraz Unknown Unknown hyclate 100 hyclate 100 0-16 12-16 MD,Genia mg capsule mg capsule na pregabalin pregabalin 2018-09 No [place] Unknown Unknown 50 mg 50 mg 0-22 MD,Genia capsule capsule na allopurinol allopurinol 2018-09 No [place] Unknown Unknown 100 mg 100 mg 0-21 MD,Genia tablet tablet na Toujeo Kamran Toulyndseyo Max 2018-09- Yes Law Unknown Unknown U-300 U-300 0-31 12-09 MD,Abimael SoloStar SoloStar 300 unit/mL 300 unit/mL (3 mL) (3 mL) subcutaneou subcutaneou s insulin s insulin pen pen Adlyxin 10 Adlyxin 10 2018-09- Yes Law Unknown Unknown mcg/0.2 mcg/0.2 1-18 12-03 MD,Abimael mL-20 mL-20 mcg/0.2 mL mcg/0.2 mL subcutaneou subcutaneou s pen s pen injector injector Adlyxin 10 Adlyxin 2018-09 Yes Law Unknown Unknown mcg/0.2 mcg/0.2 2-03 MD,Abimael mL-20 mL-20 mcg/0.2 mL mcg/0.2 mL subcutaneou subcutaneou s pen s pen injector injector Toujeo Kamran Toujeo Max 2018-09 Yes Law Unknown Unknown U-300 U-300 2-09 MD,Abimael CrawfordoStar SoloStar 300 unit/mL 300 unit/mL (3 mL) (3 mL) subcutaneou subcutaneou s insulin s insulin pen pen Vital Signs Vital Name Observation Time Observation Value Comments SYSTOLIC mm[Hg] 2019-10-21 18:10:02 138 mm[Hg] mm[Hg] Method: Sit SYSTOLIC mm[Hg] 2019-06-17 18:07:56 120 mm[Hg] mm[Hg] Method: Stand DIASTOLIC mm[Hg] 2019-10-21 18:10:02 78 mm[Hg] mm[Hg] Method: Sit DIASTOLIC mm[Hg] 2019-06-17 18:07:56 66 mm[Hg] mm[Hg] Method: Stand PULSE 2019-10-21 18:10:02 70 /min /min RESP RATE 2019-10-21 18:10:02 18 /min /min TEMP 2019-10-21 18:10:02 97.8 [degF] Procedures This patient has no known procedures. Results This patient has no known results.
--- OUTSIDE RECORDS SUMMARY | 2019-10-25 16:03 | XMS REPORT ---
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 Diagnosis Active Eufemia (current) (current) Carrier RN use of use of anticoagula anticoagula nts nts correction correction Diagnosis Active Eufemia (current) (current) Carrier RN use of use of insulin insulin correction intermission coordinator Diagnosis Active Eufemia (current) (current) Carrier RN use of use of aspirin aspirin Pain frequent Pain Mgmt Active Claudia pain 06-03 [place] 12:15: [id number] 00 Respiratory lung sounds Respirator Resolve 2019-08-12 Claudia deficit y d 06-03 11:55:00 [place] 12:15: [id number] 00 Respiratory dyspnea Respirator Resolve 2019-08-12 Claudia present y d 06-03 11:55:00 [place] 12:15: [id number] 00 Respiratory oxygen Respirator Resolve 2019-08-12 Claudia treatments y d 06-03 11:55:00 [place] in home 12:15: [id number] 00 Endo/Jono insulin Endo/Jono Active Claudia admn 06-03 [place] dependence 12:15: [id number] 00 Endo/Jono glucose Endo/Jono Active Claudia testing 06-03 [place] dependence 12:15: [id number] 00 Endo/Jono knowledge/s Endo/Jono Resolve 2019-08-12 Claudia kill d 06-03 11:55:00 [place] deficit: pt 12:15: [id number] 00 Endo/Jono knowledge/s Endo/Jono Resolve 2019-08-12 Claudia kill d 06-03 11:55:00 [place] deficit: cg 12:15: [id number] 00 Endo/Jono diabetic Endo/Jono Active Claudia foot care 06-03 [place] 12:15: [id number] 00 Sensory impaired Sensory Resolve 2019-09-08 Claudia hearing d 06-03 12:30:00 [place] 12:15: [id number] 00 Nutrition nutritional Nutrition Resolve 2019-09-08 Claudia restriction d 06-03 12:30:00 [place] s 12:15: [id number] 00 Elimination urinary Eliminatio Resolve 2019-07-14 Claudia incontinenc n d 06-03 16:15:00 [place] e 12:15: [id number] 00 Elimination UTI within Eliminatio Resolve 2019-07-14 Claudia past 14 n d 06-03 16:15:00 [place] days 12:15: [id number] 00 Neuro confusion Neuro/Emot Resolve 2019-09-08 Claudia present ion d 06-03 12:30:00 [place] 12:15: [id number] 00 Neuro impaired Neuro/Emot Resolve 2019-09-08 Claudia decision-ma ion d 06-03 12:30:00 [facility] 12:15: [id number] 00 Neuro memory Neuro/Emot Resolve 2019-09-08 Claudia deficit ion d 06-03 12:30:00 [place] needing 12:15: [id number] supervision 00 Activity ADL Activity Resolve 2019-09-08 Claudia assistance d 06-03 12:30:00 [place] required 12:15: [id number] 00 Activity self-care Activity Unknown Claudia deficit 06-03 [place] 12:15: [id number] 00 Safety structural Safety Active Claudia barriers 06-03 [place] present 12:15: [id number] 00 Safety cannot be Safety Active Claudia left alone 06-03 [place] 12:15: [id number] 00 Safety fall risk Safety Active Claudia factor 06-03 [place] present 12:15: [id number] 00 Safety risk for Safety Active Claudia hospitaliza 06-03 [place] tion 12:15: [id number] 00 Medication oral med Meds Active Claudia assistance 06-03 [place] required 12:15: [id number] 00 Medication injectable Meds Active Claudia med 06-03 [place] assistance 12:15: [id number] required 00 Medication knowledge/s Meds Active Claudia kill 06-03 [place] deficit: pt 12:15: [id number] 00 Medication potential Meds Active Claudia clinically 06-03 [place] significant 12:15: [id number] medication 00 issue Diagnoses knowledge/s Diagnoses Active Claudia kill 06-03 [place] deficit: cg 12:15: [id number] 00 Musculoskel transfer Musculoske Resolve 2019-07-23 Claudia etal assistance letal d 06-03 09:25:00 [place] required 12:15: [id number] 00 Musculoskel requires Musculoske Resolve 2019-07-23 Claudia etal human letal d 06-03 09:25:00 [place] assist to 12:15: [id number] leave home 00 Endo/Jono anti-coagul Endo/Jono Resolve 2019-08-12 Paige augustni d 06-06 11:55:00 [place] therapy 11:20: [id number] 00 Elimination constipatio Eliminatio Resolve 2019-07-14 Paige berman n d 06-06 16:15:00 [place] 11:20: [id number] 00 Cardio edema Cardiovasc Resolve 2019-08-12 Veronica guillen d 06-09 11:55:00 [place] 10:30: [id number] 00 Safety can be left Safety Active Veronica alone for 06-09 Sujata only short 10:30: [id number] periods 00 24 Hr Diet nutrition NT: 24Hr Resolve 2019-06-24 Mary intake Diet d 06-10 16:15:00 [place] deficit 15:45: [id number] 00 24 Hr Diet knowledge/s NT: 24Hr Resolve 2019-06-10 Mary kill Diet d 06-10 15:45:00 [place] deficit - 15:45: [id number] pt 00 24 Hr Diet knowledge/s NT: 24Hr Resolve 2019-06-10 Mary kill Diet d 06-10 15:45:00 [place] deficit - 15:45: [id number] cg 00 Nutritional eating NT: Resolve 2019-06-10 Mary Barrier difficultie Barriers d 06-10 15:45:00 [place] s present 15:45: [id number] 00 Nutritional knowledge/s NT: Resolve 2019-06-10 Mary Barrier kill Barriers d 06-10 15:45:00 [place] deficit - 15:45: [id number] pt 00 24 Hr Diet knowledge/s NT: 24Hr Resolve 2019-06-24 Veronica kill Diet d 06-14 16:15:00 [place] deficit - 10:40: [id number] pt 00 Nutritional swallowing NT: Resolve 2019-06-24 Silas Barrier difficultie Barriers d 06-20 16:15:00 [place] s present 16:00: [id number] 00 Nutritional knowledge/s NT: Resolve 2019-06-24 Silas Barrier kill Barriers d 06-20 16:15:00 [place] deficit - 16:00: [id number] pt 00 Nutritional food NT: Resolve 2019-06-24 Silas Barrier consistency Barriers d 06-20 16:15:00 [place] requirement 16:00: [id number] [address]: Speech Resolve 2019-07-01 Silas production Prod d 06-20 13:30:00 [place] deficit 16:00: [id number] 00 Speech Prod knowledge/s ST: Speech Resolve 2019-07-01 Silas kill Prod d 06-20 13:30:00 [place] deficit - 16:00: [id number] pt [address]: Resolve 2019-07-01 Silas deficit Swallowing d 06-20 13:30:00 [place] 16:00: [id number] 00 Swallowing knowledge/s ST: Resolve 2019-07-01 Silas kill Swallowing d 06-20 13:30:00 [place] deficit - 16:00: [id number] pt 00 Social knowledge/s RAMA: Active [facility] kill Social 06-21 [place] deficit - Services 13:00: [id number] pt 00 Social knowledge/s RAMA: Active [facility] kill Social 24 [place] deficit - Services 13:00: [id number] cg 00 Respiratory nebulizer Respirator Resolve 2019-08-12 Eufemia treatment y d 06-24 11:55:00 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 14:45: 00 24 Hr Diet knowledge/s NT: 24Hr Resolve 2019-06-24 Mary kill Diet d 06-24 16:15:00 [place] deficit - 16:15: [id number] cg 00 Nutritional swallowing NT: Resolve 2018-092019-08-01 Silas Barrier difficultie Barriers d 0-01 11:00:00 [place] present 14:45: [id number] 00 Nutritional knowledge/s NT: Resolve 2018-092019-08-01 Silas Barrier kill Barriers d 0-01 11:00:00 [place] deficit - 14:45: [id number] pt 00 Nutritional food NT: Resolve 2018-092019-08-01 Silas Barrier consistency Barriers d 0-01 11:00:00 [place] requirement 14:45: [id number] 00 Speech Prod knowledge/s ST: Speech Resolve 2018-092019-08-01 Eufemia kill Prod d 0-07 11:00:00 Carrier RN deficit - 16:30: pt 00 Neuro anxiety Neuro/Emot Resolve 2018-092019-09-08 Paige present ion d 0-17 12:30:00 [place] 16:15: [id number] 00 Respiratory knowledge/s Respirator Resolve 2018-092019-08-12 Eufemia [...] Unknown 2018-09 [place] deficit 1-12 [place] 15:30: [id number] 00 Neuro depressive Neuro/Emot Resolve 2018-092019-09-08 Lori feelings ion d 1-15 12:30:00 [place] present 11:55: 00 Activity self-care Activity Resolve 2018-092019-08-12 Lori deficit d 15 11:55:00 [place] 11:55: 00 Respiratory dyspnea Respirator Active 2018-09 Veronica chavez y 10-18 [place] 10:50: [id number] 00 Endo/Jono anti-coagul Endo/Jono Resolve 2018-092019-09-08 Veronica augustin d 10-18 12:30:00 [place] therapy 10:50: [id number] 00 Elimination urinary Eliminatio Resolve 2018-092019-10-06 Veronica incontinenc n d 10-18 16:45:00 Suj[place] e 10:50: [id number] 00 Elimination UTI within Eliminatio Active 2018-09 Veronica past 14 n 10-18 Sujata days 10:50: [id number] 00 Elimination constipatio Eliminatio Resolve 2018-092019-10-06 Veronica n n d 10-18 16:45:00 [place] 10:50: [id number] 00 Elimination diarrhea Eliminatio Resolve 2018-092019-10-06 Veronica n d 10-18 16:45:00 [place] 10:50: [id number] 00 Respiratory oxygen Respirator Active 2018-09 Veronica treatments y 10-26 Suj[place] in home 11:30: [id number] 00 Cardio pacemaker/I Cardiovasc Active 2018-09 Veronica CD ular 11-03 [place] 11:48: [id number] 00 Respiratory nebulizer Respirator Active 2018-09 Eufemia [...] restriction d 2- 16:45:00 [place] s 10:45: [id number] 00 Activity ADL Activity Active Eufemia assistance [...] Date Clinician cephalexin Base Active Unknown Reaction [place] Ingredient Unknown 2-14 Luis enoxaparin Base Active Unknown Reaction [place] Ingredient Unknown 2-14 Luis dofetilide Base Active Unknown Reaction [place] Ingredient Unknown 2-14 Luis latex Base Active Unknown Reaction [place] Ingredient Unknown 2-14 Luis shellfish Base Active Unknown Reaction [place] derived Ingredient Unknown 2-14 Luis eggs Unknown [...] 3350 (bulk) 3350 (bulk) na powder powder [place] 3-6-9 [place] 3-6-9 2018- No Galyanova Unknown Unknown 1,200 [...] 0-14 MD,Genia mg-dha-epa- mg-dha-epa- na other other [id number] [id number] h oil 1,000 h oil 1,000 mg capsule mg capsule pregabalin pregabalin 2018-09- No [place] Unknown Unknown 50 mg 50 mg 0-14 10-22 MD,Genia capsule capsule na Lantus Lantus 2018-09- No [place] Unknown Unknown Solostar Solostar 0-14 10-31 MD,Genia U-100 U-100 na Insulin 100 Insulin 100 unit/mL (3 unit/mL (3 mL) mL) [facility] 2018-09 No [place] Unknown Unknown 8.6 8.6 0-17 MD,Genia mg-docusate mg-docusate na sodium 50 sodium 50 mg tablet mg tablet potassium potassium 2018-09 No [place]aly[place] Unknown Unknown chloride ER chloride ER 0-14 MD,Genia 20 mEq 20 mEq na tablet,exte tablet,exte nded nded release release fluticasone fluticasone 2018-09 No Galyanfaraz Unknown Unknown propionate propionate 0-14 MD,Genia 50 [...] Observation Time Observation Value Comments SYSTOLIC mm[Hg] 2019-10-13 18:09:54 122 mm[Hg] mm[Hg] Method: Sit SYSTOLIC mm[Hg] 2019-06-17 18:07:56 120 mm[Hg] mm[Hg] Method: Stand DIASTOLIC mm[Hg] 2019-10-13 18:09:54 68 mm[Hg] mm[Hg] Method: Sit DIASTOLIC mm[Hg] 2019-06-17 18:07:56 66 mm[Hg] mm[Hg] Method: Stand PULSE 2019-10-13 18:09:54 80 /min /min RESP RATE 2019-10-13 18:09:54 18 /min /min TEMP 2019-10-13 18:09:54 98.6 [degF] Procedures This patient has no known procedures. Results This patient has no known results.
--- OUTSIDE RECORDS SUMMARY | 2019-10-25 16:03 | XMS REPORT | Summary of Care ---
:1940 Author Organization [facility] Address 1 [facility] [place] [address] Care Team Providers Name Role Phone January Lopez Primary Care Provider Kiarra Benavidez scaffold setter Reason for Visit Reason Comments Diarrhea 2 week follow up. URI 2 week follow up, better per patient. Joint Pain c/o hands and feet joint pain x 1 month. Encounter Details Date Type Department Care Team Description 10/19/2019 Office Visit [place] Jessica, Ischemic cardiomyopathy ( Primary Dx); Practice MD January Anemia, unspecified type; [address] Uncontrolled type 2 diabetes mellitus with complication, with long-term current use of insulin (HCC); [place] [address] [place] [address] Viral syndrome [phone] Allergies Active Allergy Reactions Severity Noted Date Comments Egg Phospholipids, Egg Lecithin 10/20/2007 Keflex Swelling 10/20/2007 Latex Dermatologic Reaction 08/06/2016 Lovenox Hives 12/16/2011 Shell Fish Swelling 11/07/2008 Dofetilide Other High 12/16/2011 documented as of this encounter (statuses as of 10/19/2019) Medications Medication Sig Dispensed Refills Start Date End Date Status cyanocobalamin (B-12) 500 Take 500 mcg by 0 Active MCG Oral Tab mouth EVERY MORNING. Jeff-3 Fatty Acids (FISH Take 1,000 mg 0 [...] Oral DAILY, Reported on 01/11/2019 3:48 PM Blood Glucose Monitor 1 Device by Does [...] TABLET SR 12 HR TIMES DAILY NEEDED. Insulin Pen Needle (SURE Inject 1 Each beneath the 155 Each 2 12/09/2018 Active COMFORT PEN NEEDLES) 30G X skin FIVE TIMES DAILY. 8 MM Does not apply Misc dicyclomine (BENTYL) 10 MG Take 1 Cap by mouth FOUR 120 Cap 3 02/14/2019 Active Oral Cap TIMES DAILY NEEDED (abdominal cramps). Spironolactone 50 MG Oral Take 1 Tab by mouth DAILY 90 Tab 3 03/11/2019 Active Tab 0700 on Empty Stomach. torsemide (DEMADEX) 20 MG TAKE 3 TABLETS BY MOUTH 75 Tab 5 03/24/2019 Active Oral Tab EVERY OTHER DAY ALTERNATING WITH 2 TABLETS BY MOUTH EVERY OTHER DAY metoprolol succinate TAKE 1 TABLET BY MOUTH TWO 60 Tab 5 05/23/2019 Active (TOPROL XL) 100 MG Oral TIMES DAILY TABLET SR 24 HRIndications: Chronic atrial fibrillation, Nonischemic cardiomyopathy (HCC) aspirin (ASPIRIN 81) 81 MG Take 81 mg by mouth DAILY. 0 Active Oral Chew Tab Cholecalciferol (VITAMIN Take 2,000 mg by mouth 60 Cap 5 06/14/2019 Active D3) 1000 units Oral Cap DAILY. metolazone (ZAROXOLYN) 2.5 Take 1 Tab by mouth DAILY 30 Tab 0 06/24/2019 Active MG Oral Tab NEEDED (weight gain more than 3 lb). albuterol HFA (VENTOLIN) INHALE 2 PUFFS BY MOUTH 18 g 5 06/27/2019 Active 108 (90 Base) MCG/ACT EVERY 4 HOURS NEEDED Inhalation Aero Soln FOR SHORTNESS OF BREATH AND WHEEZING Sennosides (SENNA) 8.6 MG Take 1 Tab by mouth EVERY 0 Active Oral Cap BEDTIME. Continuous Blood Gluc 1 Each by Does not apply 1 Device 1 07/11/2019 Active Tram Operator (FREESTYLE VIKKI route DIRECTED. 14 DAY READER) Does not apply Device pregabalin (LYRICA) 50 MG Take 1 Cap by mouth 150 Cap 3 07/12/2019 Active Oral Cap DIRECTED. Max Daily Amount: 5 Caps. 2 cap am and 3 cap pm allopurinol (ZYLOPRIM) 100 TAKE 1 TABLET BY MOUTH 30 Tab 5 07/18/2019 Active MG Oral Tab EVERY DAY montelukast (SINGULAIR) 10 TAKE 1 TABLET BY MOUTH 30 Tab 5 08/01/2019 Active MG Oral Tab EVERY DAY potassium chloride (K-DUR) TAKE 1 TABLET BY MOUTH TWO 60 Tab 5 08/01/2019 Active 20 MEQ Oral Tab TIMES DAILY CRIndications: History of low potassium diclofenac (VOLTAREN) 1 % 2 g by Topical route THREE 1 Tube 1 08/04/2019 Active Transdermal Gel TIMES DAILY NEEDED (pain). Pravastatin Sodium 80 MG TAKE 1 TABLET BY MOUTH 30 Tab 5 08/10/2019 Active Oral Tab EVERY DAY AT 2:00PM Lixisenatide (ADLYXIN SC) Adlyxin 10 mcg/0.2 mL-20 mcg/0.2 mL subcutaneous pen injector 0 Active 10 mcg daily polyethylene glycol MIX 1 PACKET IN 8 OUNCES 30 Packet 4 08/22/2019 Active (MIRALAX) Oral Pack OF LIQUID AND DRINK BY MOUTH ONCE DAILY ropinirole (REQUIP) 0.25 MG Take 1-2 Tabs by mouth 60 Tab 5 08/19/2019 Active Oral Tab EVERY BEDTIME. Insulin Glargine, 1 Unit 75 units am and 75 pm 0 Active Dial, (TOUJEJim SOLOSTAR) 300 UNIT/ML Subcutaneous Solution Pen-injector Insulin Pen Needle (SURE USE TO INJECT 155 Each 2 08/22/2019 Active COMFORT PEN NEEDLES) 30G X SUBCUTANEOUSLY (UNDER THE 8 MM Does not apply Misc SKIN) FIVE TIMES DAILY Omeprazole 40 MG Oral TAKE 1 CAPSULE BY MOUTH 60 Cap 5 08/23/2019 Active CAPSULE DELAYED RELEASE TWO TIMES DAILY Insulin Lispro, 1 Unit Inject 14 Units beneath 6 mL 5 08/29/2019 Active Dial, 100 UNIT/ML the skin THREE TIMES DAILY Subcutaneous Solution BEFORE MEALS. Pen-injectorIndications: Type 2 diabetes mellitus with complication, with long-term current use of insulin (HCC) albuterol (PROVENTIL, 3 mL by Inhalation-SVN 75 Vial 5 08/31/2019 Active VENTOLIN) (2.5 MG/3ML) route EVERY FOUR HOURS 0.083% Inhalation Nebu Soln NEEDED (Wheezing, Shortness of Breath). HYDROcodone-acetaminophen TAKE ONE TABLET BY MOUTH 120 Tab 0 09/16/2019 Active (NORCO) 10-325 MG Oral Tab EVERY 6 HOURS NEEDED FOR PAIN - MAXIMUM DAILY DOSE OF 4 TABLETS PER DAY apixaban (ELIQUIS) 5 MG Take 1 Tab by mouth TWICE 60 Tab 1 09/18/2019 Active Oral Tab DAILY. eidatxzqeru-uwvqawdjavaga-h Take 1 INHL by inhalation 60 Each 5 09/30/2019 Active ilanterol (TRELEGY ELLIPTA) DAILY. 100-62.5-25 MCG/INH Inhalation AEROSOL POWDER, BREATH ACTIVATED Blood Glucose Monitoring 1 Each by Topical route 100 Each 5 10/11/2019 Active Suppl (FREESTYLE LITE) Does THREE TIMES DAILY BEFORE not apply Device MEALS. documented as of this encounter (statuses as of 10/19/2019) Active Problems Problem Noted Date Elective replacement indicated for pacemaker 03/11/2019 Mechanical breakdown of cardiac electronic device 02/24/2019 Overview: Added automatically from request for surgery [id number] Spinal stenosis of lumbar region with neurogenic [...] obstructive pulmonary disease) 11/01/2010 Overview: [facility] [employer] [place]-[facility] 2 lpm q 24 hrs. Chronic diastolic heart failure 11/01/2010 longterm current use of anticoagulants with INR goal of 2.0-3.0 06/08/2008 Overview: 05/2019-switched to Xarelto Managed by: [place] [facility] Referring Provider: S[place] Indication: afib, chronic Target Range: 2.0-3.0 Duration: Indefinite Additional factors influencing anticoagulation: Additional factors influencing anticoagulation: CHADS2 score of 3 for age > 75, hypertension, diabetes [id number] score of 5 for age > 75, hypertension, diabetes, female gender Allopurinol increases warfarin effect Jeff 3 fatty acid increases bleeding risk Omeprazole [...] as of this encounter (statuses as of 10/19/2019) Resolved Problems Problem Noted Date Resolved Date Aftercare following joint replacement 11/03/2011 09/09/2012 Encounter for therapeutic drug monitoring 04/10/2010 11/18/2010 Diabetes mellitus type II 10/20/2007 07/03/2011 CAD (coronary artery disease) 05/24/2010 Overview: 40% LAD cath- 2007 documented as of this encounter (statuses as of 10/19/2019) Immunizations Name Administration Dates Next Due PNEUMOCOCCAL POLYSACCHARIDE VACCINE 05/17/2018, 06/18/2005 Pneumococcal Conjugate(13 Valent) 01/01/2015 TDAP Vaccine 05/08/2015 ZOSTER (ZOSTAVAX) VACCINE 05/08/2015 [...] Sign Reading Time Taken Comments Blood Pressure 122/72 10/19/2019 1:00 PM EST Pulse 70 10/19/2019 1:00 PM EST Temperature - - Respiratory Rate - - Oxygen Saturation 99% 10/19/2019 1:00 PM EST On 2L O2 Inhaled Oxygen Concentration - - Weight 108.9 kg (240 lb) 10/19/2019 1:00 PM EST Height 162.6 cm (5' 4") 10/19/2019 1:00 PM EST Body Mass Index 41.2 10/19/2019 1:00 PM EST documented in this encounter Patient Instructions Patient InstructionsJanuary Lopez MD - 10/19/2019 1:00 PM EST1. Continue Torsemide 40 mg once a day ( 2 tablets of 20 mg). Take 3 tablets if gained more than 3 lb 2. Follow up in 1 month and as needed documented in this encounter Progress Notes January Lopez MD - 10/19/2019 1:00 PM EST Patient: Emi Forte Date of Service: 10/19/2019 Subjective: Emi Forte is a 79-y.o. female who presents for Chief Complaint Patient presents with Diarrhea 2 week follow up. URI 2 week follow up, better per patient. Joint Pain c/o hands and feet joint pain x 1 month. Patient comes follow up recent viral infection. Resolved respiratory symptoms Continues to have some loose BM's, abdominal cramps Lost 1 lb since last visit No peripheral edema Complains of bilateral hand pain in DIP joints Sugars were running high since she's got sick Past Medical History: Diagnosis Date Anemia Dr. Ewing Asthma 10/20/2007 Mild, intermittent Chronic kidney disease, stage 4, severely decreased GFR (HCC) COPD (chronic obstructive pulmonary disease) ([facility]) 11/01/2010 Diabetes mellitus (HCC) 10/20/2007 eye - 10/2014 , feet - 10/12 Diverticulitis 10/20/2007 History of DJD (degenerative joint disease) knees GERD (gastroesophageal reflux disease) 10/20/2007 HTN (hypertension) 11/01/2010 Hyperlipidemia Mitral regurgitation 10/20/2007 mild Paroxysmal atrial fibrillation (HCC) 10/20/2007 Peripheral neuropathy 10/20/2007 Secondary to diabetes Seasonal allergies 10/20/2007 Sleep apnea CPAP Outpatient Medications as of 10/19/2019 Medication Sig Dispense Refill albuterol (PROVENTIL, VENTOLIN) (2.5 MG/3ML) 0.083% Inhalation Nebu Soln 3 mL by Inhalation-SVN route EVERY FOUR HOURS NEEDED (Wheezing, Shortness of Breath). 75 Vial 5 albuterol HFA (VENTOLIN) 108 (90 Base) MCG/ACT Inhalation Aero Soln INHALE 2 PUFFS BY MOUTH EVERY 4 HOURS NEEDED FOR SHORTNESS OF BREATH AND WHEEZING 18 g 5 Alcohol Swabs ([facility] ALCOHOL PREP SWABS) 70 % Does not apply Pads USE TWO TIMES A DAY 100 Each 5 allopurinol (ZYLOPRIM) 100 MG Oral Tab TAKE 1 TABLET BY MOUTH EVERY DAY 30 Tab 5 apixaban (ELIQUIS) 5 MG Oral Tab Take 1 Tab by mouth TWICE DAILY. 60 Tab 1 aspirin (ASPIRIN 81) 81 MG Oral Chew [...] Suppl (FREESTYLE LITE) Does not apply Device 1 Each by Topical routeTHREE TIMES DAILY BEFORE MEALS. 100 Each 5 Cholecalciferol (VITAMIN D3) 1000 units Oral Cap Take 2,000 mg by mouth DAILY. 60 Cap 5 Continuous Blood Gluc Tram Operator (FREESTYLE VIKKI 14 DAY READER) Does not apply Device 1 Each by Does not apply route DIRECTED. 1 Device 1 cyanocobalamin (B-12) 500 MCG Oral Tab Take 500 mcg by mouth EVERY MORNING. diclofenac (VOLTAREN) 1 % Transdermal Gel 2 g by Topical route THREE TIMES DAILY NEEDED (pain). 1 Tube 1 dicyclomine (BENTYL) 10 MG Oral Cap Take 1 Cap by mouth FOUR TIMES DAILY NEEDED (abdominalcramps). 120 Cap 3 fluticasone (FLONASE) 50 MCG/ACT Nasal Suspension USE 2 SPRAYS IN EACH NOSTRIL ONE TIME A DAY1 Bottle 5 haciwwvqsgb-ebckcyvltcwmo-pciyehzrdz (TRELEGY ELLIPTA) 100-62.5-25 MCG/ INH Inhalation AEROSOLPOWDER, BREATH ACTIVATED Take 1 INHL by inhalation DAILY. 60 Each 5 Glucose Blood (FREESTYLE LITE) In Vitro Strip 1 Each by Topical route TWICE DAILY. E11.9 100 Strip 3 guaifenesin (MUCINEX) 600 MG Oral TABLET SR 12 HR Take 600 mg by mouth TWO TIMES DAILY NEEDED. HYDROcodone-acetaminophen (NORCO) 10-325 MG Oral Tab TAKE ONE TABLET BY MOUTH EVERY 6 HOURS NEEDED FOR PAIN - MAXIMUM DAILY DOSE OF 4 TABLETS PER DAY 120 Tab 0 Insulin Glargine, 1 Unit Dial, (TOMINA SOLOSTAR) 300 UNIT/ML Subcutaneous Solution Pen-injector 75 units am and 75 pm Insulin Lispro, 1 Unit Dial, 100 UNIT/ML Subcutaneous Solution Pen- injector Inject 14 Units beneath the skin THREE TIMES DAILY BEFORE MEALS. 6 mL 5 Insulin Pen Needle (SURE COMFORT PEN NEEDLES) 30G X 8 MM Does not apply Misc Inject 1 Each beneath the skin FIVE TIMES DAILY. 155 Each 2 Insulin Pen Needle (SURE COMFORT PEN NEEDLES) 30G X 8 MM Does not apply Misc USE TO INJECT SUBCUTANEOUSLY (UNDER THE SKIN) FIVE TIMES DAILY 155 Each 2 Lancets Does not apply Misc by Does not apply route TWICE DAILY. E11.9 - Freestyle 200 Each 5 Lixisenatide (ADLYXIN SC) Adlyxin 10 mcg/0.2 mL-20 mcg/0.2 mL subcutaneous pen injector 10 mcg daily metolazone (ZAROXOLYN) 2.5 MG Oral Tab Take [...] in both eyes DAILY. 5 mL 3 Jeff-3 Fatty Acids (FISH OIL) 1000 MG Oral Cap Take 1,000 mg by mouth TWICE DAILY. Omeprazole 40 MG Oral CAPSULE DELAYED RELEASE TAKE 1 CAPSULE BY MOUTH TWO TIMES DAILY 60 Cap 5 polyethylene glycol (MIRALAX) Oral Pack MIX 1 PACKET IN 8 OUNCES OF LIQUID AND DRINK BY MOUTHONCE DAILY 30 Packet 4 potassium chloride (K-DUR) 20 MEQ Oral Tab CR TAKE 1 TABLET BY MOUTH TWO TIMES DAILY 60 Tab 5 Pravastatin Sodium 80 MG Oral Tab TAKE 1 TABLET BY MOUTH EVERY DAY AT 2: 00PM 30 Tab 5 pregabalin (LYRICA) 50 MG Oral Cap Take 1 Cap by mouth DIRECTED. Max Daily Amount: 5 Caps.2 cap am and 3 cap pm 150 Cap 3 ropinirole (REQUIP) 0.25 MG Oral Tab Take 1-2 Tabs by mouth EVERY BEDTIME. 60 Tab 5 Sennosides (SENNA) 8.6 MG Oral Cap Take [...] current facility-administered medications on file as of 10/19/2019. Allergies Allergen Reactions Tikosyn [Dofetilide] Other Eggs [Egg Phospholipids, Egg Lecithin] Keflex Swelling Latex Dermatologic Reaction Lovenox Hives Shell Fish Swelling Review of Systems: All remaining review of systems was negative. Objective: BP 122/72 Pulse 70 Ht 5' 4" (1.626 m) Wt 240 lb (108.9 kg) SpO2 99% BMI 41.2 kg/m2 GENERAL: alert, no distress THROAT: lips, mucosa, and tongue normal: teeth and gums normal LUNGS: clear to auscultation bilaterally HEART: regular rate and rhythm, S1, S2 normal, no murmur, click, rub or gallop ABDOMEN: Soft, tender in upper abdomen. Bowel sounds normal. No masses, no organomegaly EXTREMITIES: no edema. HGA1C - high, CMP - stable renal insufficiency, CBC - elevated WBC, thrombocytopenia Component Latest Ref Rng & Units 10/05/2019 10/05/2019 10/05/2019 10/05/2019 11:17 AM 11:17 AM 11:17 AM 11:17 AM WBC COUNT 3.98 - 10.04 K/uL 12.32 (H) RBC 3.93 - 5.22 M/UL 4.49 Hemoglobin 11.2 - 15.7 g/dL 11.9 Hematocrit 34.1 - 44.9 % 39.6 MCV 79.4 - 94.8 FL 88.2 MCH 25.6 - 32.2 PG 26.5 MCHC 32.2 - 35.5 g/dL 30.1 (L) Platelet Count 182 - 369 K/uL 158 (L) MPV 9.4 - 12.3 FL 12.1 RDW 11.7 - 14.4 % 17.8 (H) NEUTROPHILS 34.0 - 71.1 % 47.2 Lymphocyte % 19.3 - 51.7 % 31.7 38.0 MONOCYTES 4.7 - 12.5 % 17.2 (H) 11.0 Eosinophils 0.7 - 5.8 % 2.2 3.0 Basophil % 0.1 - 1.2 % 0.7 nRBC % 0.0 - 0.2 % 0.2 Neutrophil # 1.56 - 6.13 K/UL 5.82 Lymphocyte # 1.18 - 3.74 K/UL 3.90 (H) Monocyte # 0.24 - 0.86 K/UL 2.12 (H) Eosinophil # 0.04 - 0.36 K/UL 0.27 Basophil # 0.01 - 0.08 K/UL 0.09 (H) Immature Gran % 0.0 - 0.4 % 1.0 (H) Immature Gran # 0.00 - 0.03 K/uL 0.12 (H) NRBC # 0.00 - 0.12 K/uL 0.03 Seg Neutrophils 38.0 - 70.0 % 41.0 Atypical Lymphocytes 0.0 - 2.0 % 3.0 (H) Basophils 0.0 - 2.0 % 4.0 (H) Neutrophils Absolute 1.80 - 7.70 K/uL 5.05 Lymphocytes Absolute 1.00 - 5.00 K/uL 4.68 Atypical Lymphocytes Absolute 0.00 - 0.20 K/uL 0.37 (H) Monocytes Absolute 0.00 - 0.80 K/uL 1.36 (H) Eosinophils Absolute 0.00 - 0.50 K/uL 0.37 Basophils Absolute 0.00 - 0.20 K/uL 0.49 (H) Rbc Morphology Normal abnormal (A) Anisocytosis 1+ Poikilocytosis 1+ Microcytes 1+ Polychromasia 1+ Ovalocytes 1+ WBC MORPHOLOGY Normal Normal PLT MORPHOLOGY Normal Normal Platelet Estimate Normal Decreased (A) Sodium 134 - 145 mmol/L 138 Potassium 3.5 - 5.1 mmol/L 4.7 Chloride 98 - 107 mmol/L 98 CO2 22 - 30 mmol/L 28 Calcium 8.3 - 10.1 mg/dl 9.7 Albumin 3.5 - 5.0 g/dl 4.5 BUN 7 - 17 mg/dl 60 (H) Creatinine 0.7 - 1.2 mg/dl 2.6 (H) Glucose (Lab) 70 - 99 mg/dl 196 (H) Protein,Total 6.3 - 8.2 g/dl 8.3 (H) Total Bilirubin 0.0 - 1.1 MG/DL 0.4 AST 15 - 46 U/L 34 ALT 9 - 52 U/L 18 ALKALINE PHOSPHATASE 40 - 150 U/L 90 eGFR See Interpretation Below ml/min/1.73ml Sq 22 BUN/Creatinine Ratio 6 - 22 RATIO 23 (H) Anion Gap 3 - 11 mmol/L 12 (H) A/G Ratio 0.8 - 2.0 ratio 1.2 Glycohemoglobin - POCT <=5.6 % 9.5 (H) Patient advised on tests results ICD-9-CM ICD-10-CM 1. Ischemic cardiomyopathy Stable 414.8 I25.5 2. Anemia, unspecified type 285.9 D64.9 CBC WITH DIFFERENTIAL 3. Uncontrolled type 2 diabetes mellitus with complication, with long-term current use of insulin (HCC) 250.82 E11.8 Will follow with endocrinology next week V58.67 E11.65 Z79.4 4. Viral syndrome Improving 079.99 B34.9 Patient Instructions 1. Continue Torsemide 40 mg once a day ( 2 tablets of 20 mg). Take 3 tablets if gained more than 3 lb 2. Follow up in 1 month and as needed Author: January Lopez MD documented in this encounter Plan of Treatment Date Type Specialty Care Team Description 11/15/2019 Office Visit Family Practice January Lopez MD [facility] [place] [address] 12/05/2019 Ocular Visit Optometry Eliu Adrian, OD [address] [place], [place] [id number] 12/06/2019 [facility] 02/02/2020 Office Visit Pulmonary Alirio Cabello MD [address] [place] [address] [phone] 02/22/2020 Office Visit Cardiology Ta Waddell MD [address] [place] [address] 04/06/2020 Office Visit [facility]hythm[facility] Name Type Priority Associated Diagnoses Date/Time CBC WITH DIFFERENTIAL Lab Routine Anemia, unspecified type 10/19/2019 1: 23 PM EST Health Maintenance Due Date Last Done Comments Diabetic Eye Exam 06/11/2018 06/11/2017, 07/23/2016, 10/31/2014, Additional history exists DEPRESSION SCREENING 12/25/2019 12/24/2018 FALL RISK ASSESSMENT 12/25/2019 12/24/2018, 12/24/2018 HEMOGLOBIN A1C 01/04/2020 10/05/2019, 05/03/2019, 02/01/2019, Additional history exists FOOT EXAM 02/18/2020 02/17/2019, 02/17/2019, 02/17/2019, Additional history exists MEDICARE ANNUAL WELLNESS 05/10/2020 05/10/2019, 03/15/2018, VISIT 07/16/2016, Additional history exists ZOSTER IMMUNIZATION SERIES 10/05/2020 05/08/2015 Postponed from (2 of 3) 07/03/2015 (Vaccine not available) OSTEOPOROSIS SCREENING 10/08/2021 10/08/2011 DTaP/Tdap/Td Vaccines (2 - 05/08/2025 05/08/2015 Tdap) HIV SCREENING Completed 12/16/2013 PNEUMOCOCCAL 65+YRS Completed 05/17/2018, 01/01/2015, 06/18/2005 HEPATITIS A IMMUNIZATION Aged Out No longer eligible SERIES based on patient's age to complete this topic HPV IMMUNIZATION SERIES Aged Out No longer eligible based on patient's age to complete this topic MENINGOCOCCAL VACCINE IMM Aged Out No longer eligible based on patient's age to complete this topic documented as of this encounter Goals Goal Patient Goal Associated Recent Patient-Stated? Author Type Problems Progress Blood Pressure Blood Pressure HTN 122/72 No Jessica, < 140/90 (hypertension) (10/19/2019 January, 1:00 PM EST) Note: Hypertension Care Plan Based on the [...] Educational Resources: National Heart, Lung, & Blood Wilber http://nhlbi.nih.gov/hbp/index.html The DASH Diet Eating Plan http://www.nhlbi.nih.gov/health/health-topics/ topics/dash/ Academy of Nutrition & DIetetics http://eatright.org National Smoking Cessation Site http://smokefree.gov Blood Pressure < Blood Pressure 122/72 (10/19/2019 No January Lopez, 140/90 1:00 PM EST) Note: This is an individualized treatment (blood pressure) goal for Emi Forte: Displayed above (on the left) is your goal for blood pressure control. Your most recent blood pressure is also shown above, on the right. You should try to achieve blood pressures that are lower than your goal listed above (on the left). Weight increase vs. 18 CHF 12 (10/19/2019 1:00 PM No January Lopez MD mo min (lbs) < 5 EST) Note: This is an individualized treatment (congestive [...] depression. Diabetes < 7.0 Diabetes Diabetes mellitus 9.5 (10/05/2019 11:17 No MINNIE Lopez) MD January Note: Diabetes Care Plan According [...] my blood sugar results (including dextrose sticks). [place] is safe and secure way for you [...] quitting. Diabetes < 7.0 Diabetes Diabetes mellitus 9.5 (10/05/2019 11:17 MINNIE Chatterjee) MD January Note: Diabetes Care Plan According [...] my blood sugar results (including dextrose sticks). [facility] [place] is safe and secure way for you [...] towards quitting. Glycohemoglobin A1c < 7.0 Diabetes 9.5 (10/05/2019 11:17 January Chatterjee, AM EST) Note: This is an individualized treatment (diabetes [...] eating or drinking. record my weight daily. [facility] is safe and secure way for [...] and any After Visit Summaries. Consume a fh-ctlan-eulr diet Lifestyle No January Lopez MD Note: [...] is an individualized self-management goal for Emi L Forte: Please take all prescribed medications as [...] of this encounter Implants Implanted Type Area Environmental Sustainability Manager Device Shelf Model / Identifier Expiration Serial / Lot Date Accent Dual Chamber [id number] - [id number] Left: ST. SIM 02/26/2012 [id number] / Implanted: Qty: 1 on 11/06/2010 at [facility] [employer] [id number] / Lead Tendril # [id number] - [id number] Left: ST SIM 07/28/2013 [id number] / Implanted: Qty: 1 on 11/06/2010 at [facility]/ [place] [id number] / ER Tendril Lead 8tc/58cm - [id number] Left: ST. SIM 10/28/2013 2088TC/ 58CM / Implanted: Qty: 1 on 11/06/2010 at [facility] [employer] [id number] / Bone Cement, Double 80gm - [id number] Right: DEPUY [id number] / Implanted: Qty: 1 on 10/20/2011 at [facility] Knee / [id number] Tibial Plate Size 5 Nexgen - [id number] Right: LONA MONCADA 5980-47- 01 / Implanted: Qty: 1 on 10/20/2011 at [facility] K[employer]OC / [id number] Lps-Flex Option Femoral E Rt - [id number] Right: LONA MONCADA [id number] / Implanted: Qty: 1 on 10/20/2011 at [facility] [employer] / [id number] Lps-Flex Taper Plugs - [id number] Right: LONA MONCADA / Implanted: Qty: 1 on 10/20/2011 at [facility] [employer] / [id number] Art Surface 12mm Green - [id number] Right: LONA MONCADA / Implanted: Qty: 1 on 10/20/2011 at [facility] [employer] / [id number] Assurity Mri [id number] Generator - [id number] ST. SIM 08/27/2020 [id number] / Implanted: Qty: 1 on 03/11/2019 by Talha Pineda MD at [facility]. [id number] / documented as of this encounter Results Not on filedocumented in this encounter Visit Diagnoses Diagnosis Anemia, unspecified type Uncontrolled type 2 diabetes mellitus with complication, with long-term current use of insulin (HCC) Ischemic cardiomyopathy Other specified forms of chronic ischemic heart disease Viral syndrome Unspecified viral infection, in conditions classified elsewhere and of unspecified site documented in this encounter Insurance Payer Benefit Plan / Subscriber ID Effective Dates Phone Address Type Group EXCELLUS MEDICARE EXCELLUS xxxxxxxxxxxx Effective for Sara Campbell ADVANTAGE MEDICARE BLUE all dates PPO ([phone]) Guarantor Name Account Type Relation to Date of Phone Billing Address Patient Emi Forte Personal/Family 1940 [address] (Home) [place], [place] [phone] (Work) documented as of this encounter Advance Directives Type Date Recorded Patient Policy Value Calculator Explanation Advance Directives 07/01/2019 6:02 AM HEALTH CARE PROXY Advance Directives 07/21/2019 1:25 PM HEALTH CARE PROXY POLST-MOLST 07/21/2019 1:25 PM MOLST ORDERS Code Status Date Activated Date Inactivated Comments [...]
--- OUTSIDE RECORDS SUMMARY | 2019-10-25 16:03 | XMS REPORT ---
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 Eufemia (current) (current) Carrier RN use of use of aspirin aspirin Pain frequent Pain Mgmt Active Claudia pain 06-03 Zillah 12:15: [id number] 00 Respiratory lung sounds Respirator Resolve 2019-08-12 Claudia deficit y d 06-03 11:55:00 [place]illah 12:15: [id number] 00 Respiratory dyspnea Respirator Resolve 2019-08-12 Claudia present y d 06-03 11:55:00 Zillah 12:15: [id number] 00 Respiratory oxygen Respirator Resolve 2019-08-12 Claudia treatments y d 06-03 11:55:00 Zillah in home 12:15: [id number] 00 Endo/Jono insulin Endo/Jono Active Claudia admn 06-03 Zillah dependence 12:15: [id number] 00 Endo/Jono glucose Endo/Jono Active Claudia testing 06-03 Zillah dependence 12:15: [id number] 00 Endo/Jono knowledge/s Endo/Jono Resolve 2019-08-12 Claudia kill d 06-03 11:55:00 Zillah deficit: pt 12:15: [id number] 00 Endo/Jono knowledge/s Endo/Jono Resolve 2019-08-12 Claudia kill d 06-03 11:55:00 [place]illah deficit: cg 12:15: [id number] 00 Endo/Jono diabetic Endo/Jono Active Claudia foot care 06-03 Zillah 12:15: [id number] 00 Sensory impaired Sensory Resolve 2019-09-08 Claudia hearing d 06-03 12:30:00 [place]illah 12:15: [id number] 00 Nutrition nutritional Nutrition Resolve 2019-09-08 Claudia restriction d 06-03 12:30:00 Loyd s 12:15: [id number] 00 Elimination urinary Eliminatio Resolve 2019-07-14 Claudia incontinenc n d 06-03 16:15:00 Zillah e 12:15: [id number] 00 Elimination UTI within Eliminatio Resolve 2019-07-14 Claudia past 14 n d 06-03 16:15:00 Zillah days 12:15: [id number] 00 Neuro confusion Neuro/Emot Resolve 2019-09-08 Claudia present ion d 06-03 12:30:00 [place]ah 12:15: [id number] 00 Neuro impaired Neuro/Emot Resolve 2019-09-08 Claudia decision-ma ion d 06-03 12:30:00 [facility] 12:15: [id number] 00 Neuro memory Neuro/Emot Resolve 2019-09-08 Claudia deficit ion d 06-03 12:30:00 Zillah needing 12:15: [id number] supervision 00 Activity ADL Activity Resolve 2019-09-08 Claudia assistance d 06-03 12:30:00 Zillah required 12:15: [id number] 00 Activity self-care Activity Unknown Claudia deficit 06-03 Zillah 12:15: [id number] 00 Safety structural Safety Active Claudia barriers 06-03 Zillah present 12:15: [id number] 00 Safety cannot be Safety Active Claudia left alone 06-03 Zillah 12:15: [id number] 00 Safety fall risk Safety Active Claudia factor 06-03 Zillah present 12:15: [id number] 00 Safety risk for Safety Active Claudia hospitaliza 06-03 Zillah tion 12:15: [id number] 00 Medication oral med Meds Active Claudia assistance 06-03 Zillah required 12:15: [id number] 00 Medication injectable Meds Active Claudia med 06-03 Zillah assistance 12:15: [id number] required 00 Medication knowledge/s Meds Active Claudia kill 06-03 Zillah deficit: pt 12:15: [id number] 00 Medication potential Meds Active Claudia clinically 06-03 Zillah significant 12:15: [id number] medication 00 issue Diagnoses knowledge/s Diagnoses Active Claudia kill 06-03 Zillah deficit: cg 12:15: [id number] 00 Musculoskel transfer Musculoske Resolve 2019-07-23 Claudia etal assistance letal d 06-03 09:25:00 Zillah required 12:15: [id number] 00 Musculoskel requires Musculoske Resolve 2019-07-23 Claudia etal human letal d 06-03 09:25:00 Zillah assist to 12:15: [id number] leave home 00 Endo/Jono anti-coagul Endo/Jono Resolve 2019-08-12 Paige augustin d 06-06 11:55:00 Regeczi therapy 11:20: [id number] 00 Elimination constipatio Eliminatio Resolve 2019-07-14 Paige beramn n d 06-06 16:15:00 Regeczi 11:20: [id number] 00 Cardio edema Cardiovasc Resolve 2019-08-12 Veronica guillen d 06-09 11:55:00 Sujata 10:30: [id number] 00 Safety can be left Safety Active Veronica alone for 06-09 Sujata only short 10:30: [id number] periods 00 24 Hr Diet nutrition NT: 24Hr Resolve 2019-06-24 Mary intake Diet d 06-10 16:15:00 [place] deficit 15:45: [id number] 00 24 Hr Diet knowledge/s NT: 24Hr Resolve 2019-06-10 Mary kill Diet d 06-10 15:45:00 [place] deficit - 15:45: [id number] pt 00 24 Hr Diet knowledge/s NT: 24Hr Resolve 2019-06-10 Mary kill Diet d 06-10 15:45:00 [place] deficit - 15:45: [id number] cg 00 Nutritional eating NT: Resolve 2019-06-10 Mary Barrier difficultie Barriers d 06-10 15:45:00 [place]ar s present 15:45: [id number] 00 Nutritional knowledge/s NT: Resolve 2019-06-10 Mary Barrier kill Barriers d 06-10 15:45:00 [place] deficit - 15:45: [id number] pt 00 24 Hr Diet knowledge/s NT: 24Hr Resolve 2019-06-24 Veronica kill Diet d 06-14 16:15:00 Sujata deficit - 10:40: [id number] pt 00 Nutritional swallowing NT: Resolve 2019-06-24 Silas Barrier difficultie Barriers d 06-20 16:15:00 Zanfordino s present 16:00: [id number] 00 Nutritional knowledge/s NT: Resolve 2019-06-24 Silas Barrier kill Barriers d 06-20 16:15:00 Zanfordino deficit - 16:00: [id number] pt 00 Nutritional food NT: Resolve 2019-06-24 Silas Barrier consistency Barriers d 06-20 16:15:00 Zanfordino requirement 16:00: [id number] [address]: Speech Resolve 2019-07-01 Silas production Prod d 06-20 13:30:00 Zanfordino deficit 16:00: [id number] 00 Speech Prod knowledge/s ST: Speech Resolve 2019-07-01 Silas kill Prod d 06-20 13:30:00 Zanfordino deficit - 16:00: [id number] pt [address]: Resolve 2019-07-01 Silas deficit Swallowing d 06-20 13:30:00 Zanfordino 16:00: [id number] 00 Sw[address] ST: Resolve 2019-07-01 Silas kill Swallowing d 06-20 13:30:00 Zanfordino deficit - 16:00: [id number] pt 00 Social knowledge/s RAMA: Active [facility] kill Social 06-21 [place] deficit - Services 13:00: [id number] pt 00 Social knowledge/s RAMA: Active [facility] kill Social 24 [place] deficit - Services 13:00: [id number] cg 00 Respiratory nebulizer Respirator Resolve 2019-08-12 Eufemia treatment y d 06-24 11:55:00 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 14:45: 00 24 Hr Diet knowledge/s NT: 24Hr Resolve 2019-06-24 Mary kill Diet d 06-24 16:15:00 [place] deficit - 16:15: [id number] cg 00 Nutritional swallowing NT: Resolve 2018-092019-08-01 Silas Barrier difficultie Barriers d 0-01 11:00:00 Zanfordino s present 14:45: [id number] 00 Nutritional knowledge/s NT: Resolve 2018-092019-08-01 Silas Barrier kill Barriers d 0-01 11:00:00 Zanfordino deficit - 14:45: [id number] pt 00 Nutritional food NT: Resolve 2018-092019-08-01 Silas Barrier consistency Barriers d 0-01 11:00:00 Zanfordino requirement 14:45: [id number] 00 Speech Prod knowledge/s ST: Speech Resolve 2018-092019-08-01 Eufemia kill Prod d 0-07 11:00:00 Carrier RN deficit - 16:30: pt 00 Neuro anxiety Neuro/Emot Resolve 2018-092019-09-08 Paige present ion d 0-17 12:30:00 Regeczi 16:15: [id number] 00 Respiratory knowledge/s Respirator Resolve 2018-092019-08-12 Eufemia [...] Unknown 2018-09 [place]ford deficit 1-12 [place] 15:30: [id number] 00 Neuro depressive Neuro/Emot Resolve 2018-092019-09-08 Lori feelings ion d 1-15 12:30:00 Vallely present 11:55: 00 Activity self-care Activity Resolve 2018-092019-08-12 Lori deficit d 15 11:55:00 Vallely 11:55: 00 Respiratory dyspnea Respirator Active 2018-09 Veronica chavez y 10-18 Sujata 10:50: [id number] 00 Endo/Jono anti-coagul Endo/Jono Resolve 2018-092019-09-08 Veronica augustin d 10-18 12:30:00 Sujata therapy 10:50: [id number] 00 Elimination urinary Eliminatio Resolve 2018-092019-10-06 Veronica incontinenc n d 10-18 16:45:00 Sujata e 10:50: [id number] 00 Elimination UTI within Eliminatio Active 2018-09 Veronica past 14 n 10-18 Sujata days 10:50: [id number] 00 Elimination constipatio Eliminatio Resolve 2018-092019-10-06 Veronica n n d 10-18 16:45:00 Sujata 10:50: [id number] 00 Elimination diarrhea Eliminatio Resolve 2018-092019-10-06 Veronica n d 10-18 16:45:00 Sujata 10:50: [id number] 00 Respiratory oxygen Respirator Active 2018-09 Veronica treatments y 10-26 Sujata in home 11:30: [id number] 00 Cardio pacemaker/I Cardiovasc Active 2018-09 Veronica CD ular 11-03 Sujata 11:48: [id number] 00 Respiratory nebulizer Respirator Active 2018-09 Eufemia [...] restriction d 2- 16:45:00 Traunstein s 10:45: [id number] 00 Activity ADL Activity Active Eufemia assistance [...] Date Clinician cephalexin Base Active Unknown Reaction Eden Ingredient Unknown 2-14 Luis enoxaparin Base Active Unknown Reaction Eden Ingredient Unknown 2-14 Luis dofetilide Base Active Unknown Reaction Eden Ingredient Unknown 2-14 Luis latex Base Active Unknown Reaction Eden Ingredient Unknown 2-14 Luis shellfish Base Active Unknown Reaction Eden derived Ingredient Unknown 214 Luis eggs Unknown [...] 3350 (bulk) 3350 (bulk) na powder powder [place] 3-6-9 [place] 3-6-9 2018- No Galyanova Unknown Unknown 1,200 [...] 0-14 MD,Genia mg-dha-epa- mg-dha-epa- na other other [id number] h oil 1,000 h oil 1,000 mg capsule mg capsule pregabalin pregabalin 2018-09- No Galyanova Unknown Unknown 50 mg 50 mg 0-14 10-22 MD,Genia capsule capsule na Lantus Lantus 2018-09- No Galyanova Unknown Unknown Solostar Solostar 0-14 10-31 MD,Genia U-100 U-100 na Insulin 100 Insulin 100 unit/mL (3 unit/mL (3 mL) mL) subcutaneou subcutaneou s pen s pen sennosides sennosides 2018-09 No Galyanova Unknown Unknown 8.6 8.6 0-17 MD,Genia [...] Unknown Unknown mcg/0.2 mcg/0.2 1-18 12-03 Abimael ALDRIDEG mL-20 mL-20 mcg/0.2 mL mcg/0.2 mL subcutaneou [...]
--- OUTSIDE RECORDS SUMMARY | 2019-10-25 16:03 | XMS REPORT ---
:1940 Author Organization [facility] Care Team Providers Name Role Phone Unavailable Unavailable Unavailable Problems Condition Condition Condition Status Onset Resolution Last Treating Comments Name Details Category Date Date Treatment Clinician Date Cerebral Cerebral Diagnosis Active Eufemia infarction, infarction, 06-03 Carrier RN unspecified unspecified Type 2 Type 2 Diagnosis Active Eufemia diabetes diabetes 06-03 Carrier RN mellitus mellitus without without complicatio complicatio ns ns Heart Heart Diagnosis Active Uefemia failure, failure, 06-03 Carrier RN unspecified unspecified [...] apnea 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 Eufemia (current) (current) Carrier RN use of use of anticoagula anticoagula nts nts custodial custodial Diagnosis Active Eufemia (current) (current) 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 RN use of use of insulin 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 Eufemia (current) (current) Carrier RN use of use of aspirin aspirin Pain frequent Pain Mgmt Active Claudia pain 06-03 [place] 12:15: [id number] 00 Respiratory lung sounds Respirator Resolve 2019-08-12 Claudia deficit y d 06-03 11:55:00 [place] 12:15: [id number] 00 Respiratory dyspnea Respirator Resolve 2019-08-12 Claudia present y d 06-03 11:55:00 [place] 12:15: [id number] 00 Respiratory oxygen Respirator Resolve 2019-08-12 Claudia treatments y d 06-03 11:55:00 Troy in home 12:15: [id number] 00 Endo/Jono insulin Endo/Jono Active Claudia admn 06-03 [place] dependence 12:15: [id number] 00 Endo/Jono glucose Endo/Jono Active Claudia testing 06-03 [place] dependence 12:15: [id number] 00 Endo/Jono knowledge/s Endo/Jono Resolve 2019-08-12 Claudia kill d 06-03 11:55:00 [place] deficit: pt 12:15: [id number] 00 Endo/Jono knowledge/s Endo/Jono Resolve 2019-08-12 Claudia kill d 06-03 11:55:00 [place] deficit: cg 12:15: [id number] 00 Endo/Jono diabetic Endo/Jono Active Claudia foot care 06-03 [place] 12:15: [id number] 00 Sensory impaired Sensory Resolve 2019-09-08 Claudia hearing d 06-03 12:30:00 [place] 12:15: [id number] 00 Nutrition nutritional Nutrition Resolve 2019-09-08 Claudia restriction d 06-03 12:30:00 Loyd s 12:15: [id number] 00 Elimination urinary Eliminatio Resolve 2019-07-14 Claudia incontinenc n d 06-03 16:15:00 [place] e 12:15: [id number] 00 Elimination UTI within Eliminatio Resolve 2019-07-14 Claudia past 14 n d 06-03 16:15:00 [place] days 12:15: [id number] 00 Neuro confusion Neuro/Emot Resolve 2019-09-08 Claudia present ion d 06-03 12:30:00 [place] 12:15: [id number] 00 Neuro impaired Neuro/Emot Resolve 2019-09-08 Claudia decision-ma ion d 06-03 12:30:00 [facility] 12:15: [id number] 00 Neuro memory Neuro/Emot Resolve 2019-09-08 Claudia deficit ion d 06-03 12:30:00 [place] needing 12:15: [id number] supervision 00 Activity ADL Activity Resolve 2019-09-08 Claudia assistance d 06-03 12:30:00 [place] required 12:15: [id number] 00 Activity self-care Activity Unknown Claudia deficit 06-03 [place] 12:15: [id number] 00 Safety structural Safety Active Claudia barriers 06-03 [place] present 12:15: [id number] 00 Safety cannot be Safety Active Claudia left alone 06-03 [place] 12:15: [id number] 00 Safety fall risk Safety Active Claudia factor 06-03 [place] present 12:15: [id number] 00 Safety risk for Safety Active Claudia hospitaliza 06-03 [place] tion 12:15: [id number] 00 Medication oral med Meds Active Claudia assistance 06-03 [place] required 12:15: [id number] 00 Medication injectable Meds Active Claudia med 06-03 [place] assistance 12:15: [id number] required 00 Medication knowledge/s Meds Active Claudia kill 06-03 [place] deficit: pt 12:15: [id number] 00 Medication potential Meds Active Claudia clinically 06-03 [place] significant 12:15: [id number] medication 00 issue Diagnoses knowledge/s Diagnoses Active Claudia kill 06-03 [place] deficit: cg 12:15: [id number] 00 Musculoskel transfer Musculoske Resolve 2019-07-23 Claudia etal assistance letal d 06-03 09:25:00 [place] required 12:15: [id number] 00 Musculoskel requires Musculoske Resolve 2019-07-23 Claudia etal human letal d 06-03 09:25:00 [place] assist to 12:15: [id number] leave home 00 Endo/Jono anti-coagul Endo/Jono Resolve 2019-08-12 Paige augustin d 06-06 11:55:00 Regeczi therapy 11:20: [id number] 00 Elimination constipatio Eliminatio Resolve 2019-07-14 Paige berman n d 06-06 16:15:00 Regeczi 11:20: [id number] 00 Cardio edema Cardiovasc Resolve 2019-08-12 Veronica guillen d 06-09 11:55:00 Sujata 10:30: [id number] 00 Safety can be left Safety Active Veronica alone for 06-09 Sujata only short 10:30: [id number] periods 00 24 Hr Diet nutrition NT: 24Hr Resolve 2019-06-24 Mary intake Diet d 06-10 16:15:00 [place] deficit 15:45: [id number] 00 24 Hr Diet knowledge/s NT: 24Hr Resolve 2019-06-10 Mary kill Diet d 06-10 15:45:00 [place] deficit - 15:45: [id number] pt 00 24 Hr Diet knowledge/s NT: 24Hr Resolve 2019-06-10 Mary kill Diet d 06-10 15:45:00 [place] deficit - 15:45: [id number] cg 00 Nutritional eating NT: Resolve 2019-06-10 Mary Barrier difficultie Barriers d 06-10 15:45:00 [place] s present 15:45: [id number] 00 Nutritional knowledge/s NT: Resolve 2019-06-10 Mary Barrier kill Barriers d 06-10 15:45:00 [place] deficit - 15:45: [id number] pt 00 24 Hr Diet knowledge/s NT: 24Hr Resolve 2019-06-24 Veronica kill Diet d 06-14 16:15:00 Sujata deficit - 10:40: [id number] pt 00 Nutritional swallowing NT: Resolve 2019-06-24 Silas Barrier difficultie Barriers d 06-20 16:15:00 Zanfordino s present 16:00: [id number] 00 Nutritional knowledge/s NT: Resolve 2019-06-24 Silas Barrier kill Barriers d 06-20 16:15:00 Zanfordino deficit - 16:00: [id number] pt 00 Nutritional food NT: Resolve 2019-06-24 Silas Barrier consistency Barriers d 06-20 16:15:00 [place]anfordino requirement 16:00: [id number] [address]: Speech Resolve 2019-07-01 Silas production Prod d 06-20 13:30:00 Zanfordino deficit 16:00: [id number] 00 Speech Prod knowledge/s ST: Speech Resolve 2019-07-01 Silas kill Prod d 06-20 13:30:00 Zanfordino deficit - 16:00: [id number] pt [address]: Resolve 2019-07-01 Silas deficit Swallowing d 06-20 13:30:00 Zanfordino 16:00: [id number] 00 Swallow[address] knowledge/[address] ST: Resolve 2019-07-01 Silas kill Swallowing d 06-20 13:30:00 Zanfordino deficit - 16:00: [id number] pt 00 Social knowledge/s RAMA: Active [facility] kill Social 06-21 [place] deficit - Services 13:00: [id number] pt 00 Social knowledge/s RAMA: Active [facility] kill Social 24 [place] deficit - Services 13:00: [id number] cg 00 Respiratory nebulizer Respirator Resolve 2019-08-12 Eufemia treatment y d 06-24 11:55:00 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 14:45: 00 24 Hr Diet knowledge/s NT: 24Hr Resolve 2019-06-24 Mary kill Diet d 06-24 16:15:00 [place] deficit - 16:15: [id number] cg 00 Nutritional swallowing NT: Resolve 2018-092019-08-01 Silas Barrier difficultie Barriers d 0-01 11:00:00 Zanfordino s present 14:45: [id number] 00 Nutritional knowledge/s NT: Resolve 2018-092019-08-01 Silas Barrier kill Barriers d 0-01 11:00:00 Zanfordino deficit - 14:45: [id number] pt 00 Nutritional food NT: Resolve 2018-092019-08-01 Silas Barrier consistency Barriers d 0-01 11:00:00 Zanfordino requirement 14:45: [id number] 00 Speech Prod knowledge/s ST: Speech Resolve 2018-092019-08-01 Eufemia kill Prod d 0-07 11:00:00 Carrier RN deficit - 16:30: pt 00 Neuro anxiety Neuro/Emot Resolve 2018-092019-09-08 Paige present ion d 0-17 12:30:00 Regeczi 16:15: [id number] 00 Respiratory knowledge/s Respirator Resolve 2018-092019-08-12 Eufemia [...] Unknown 2018-09 [place] deficit 1-12 [place] 15:30: [id number] 00 Neuro depressive Neuro/Emot Resolve 2018-092019-09-08 Lori feelings ion d 1-15 12:30:00 Vallely present 11:55: 00 Activity self-care Activity Resolve 2018-092019-08-12 Lori deficit d 15 11:55:00 Vallely 11:55: 00 Respiratory dyspnea Respirator Active 2018-09 Veronica chavez y 10-18 Sujata 10:50: [id number] 00 Endo/Jono anti-coagul Endo/Jono Resolve 2018-092019-09-08 Veronica augustin d 10-18 12:30:00 Sujata therapy 10:50: [id number] 00 Elimination urinary Eliminatio Resolve 2018-092019-10-06 Veronica incontinenc n d 10-18 16:45:00 Sujata e 10:50: [id number] 00 Elimination UTI within Eliminatio Active 2018-09 Veronica past 14 n 10-18 Sujata days 10:50: [id number] 00 Elimination constipatio Eliminatio Resolve 2018-092019-10-06 Veronica n n d 10-18 16:45:00 Sujata 10:50: [id number] 00 Elimination diarrhea Eliminatio Resolve 2018-092019-10-06 Veronica n d 10-18 16:45:00 Sujata 10:50: [id number] 00 Respiratory oxygen Respirator Active 2018-09 Veronica treatments y 10-26 Sujata in home 11:30: [id number] 00 Cardio pacemaker/I Cardiovasc Active 2018-09 Veronica CD ular 11-03 Sujata 11:48: [id number] 00 Respiratory nebulizer Respirator Active 2018-09 Eufemia [...] restriction d 2- 16:45:00 Tra[place]stein s 10:45: [id number] 00 Activity ADL Activity Active Eufemia assistance [...] Date Clinician cephalexin Base Active Unknown Reaction Grant Ingredient Unknown 2-14 Luis enoxaparin Base Active Unknown Reaction Grant Ingredient Unknown 2-14 Luis dofetilide Base Active Unknown Reaction Grant Ingredient Unknown 2-14 Luis latex Base Active Unknown Reaction Grant Ingredient Unknown 2-14 Luis shellfish Base Active Unknown Reaction Grant derived Ingredient Unknown 214 Luis eggs Unknown [...] 3350 (bulk) 3350 (bulk) na powder powder [place] 3-6-9 [place] 3-6-9 2018- No Galyanova Unknown Unknown 1,200 [...] 0-14 MD,Genia mg-dha-epa- mg-dha-epa- na other other [id number] h oil 1,000 h oil 1,000 mg [...]
--- OUTSIDE RECORDS SUMMARY | 2019-10-25 16:04 | XMS REPORT ---
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 Diagnosis Active Eufemia (current) (current) Carrier RN use of use of anticoagula anticoagula [facility]ts nts [facility] Diagnosis Active Eufemia (current) (current) Carrier RN use of use of insulin insulin jail jail Diagnosis Active Eufemia (current) (current) Carrier RN use of use of aspirin aspirin Pain frequent Pain Mgmt Active Claudia pain 06-03 [place] 12:15: [id number] 00 Respiratory lung sounds Respirator Resolve 2019-08-12 Claudia deficit y d 06-03 11:55:00 [place] 12:15: [id number] 00 Respiratory dyspnea Respirator Resolve 2019-08-12 Claudia present y d 06-03 11:55:00 [place] 12:15: [id number] 00 Respiratory oxygen Respirator Resolve 2019-08-12 Claudia treatments y d 06-03 11:55:00 Starbuck in home 12:15: [id number] 00 Endo/Jono insulin Endo/Jono Active Claudia admn 06-03 [place] dependence 12:15: [id number] 00 Endo/Jono glucose Endo/Jono Active Claudia testing 06-03 [place]buck dependence 12:15: [id number] 00 Endo/Jono knowledge/s Endo/Jono Resolve 2019-08-12 Claudia kill d 06-03 11:55:00 [place] deficit: pt 12:15: [id number] 00 Endo/Jono knowledge/s Endo/Jono Resolve 2019-08-12 Claudia kill d 06-03 11:55:00 [place] deficit: cg 12:15: [id number] 00 Endo/Jono diabetic Endo/Jono Active Claudia foot care 06-03 [place] 12:15: [id number] 00 Sensory impaired Sensory Resolve 2019-09-08 Claudia hearing d 06-03 12:30:00 [place] 12:15: [id number] 00 Nutrition nutritional Nutrition Resolve 2019-09-08 Claudia restriction d 06-03 12:30:00 Loyd s 12:15: [id number] 00 Elimination urinary Eliminatio Resolve 2019-07-14 Claudia incontinenc n d 06-03 16:15:00 [place] e 12:15: [id number] 00 Elimination UTI within Eliminatio Resolve 2019-07-14 Claudia past 14 n d 06-03 16:15:00 [place] days 12:15: [id number] 00 Neuro confusion Neuro/Emot Resolve 2019-09-08 Claudia present ion d 06-03 12:30:00 [place] 12:15: [id number] 00 Neuro impaired Neuro/Emot Resolve 2019-09-08 Claudia decision-ma ion d 06-03 12:30:00 [facility] 12:15: [id number] 00 Neuro memory Neuro/Emot Resolve 2019-09-08 Claudia deficit ion d 06-03 12:30:00 [place] needing 12:15: [id number] supervision 00 Activity ADL Activity Resolve 2019-09-08 Claudia assistance d 06-03 12:30:00 [place] required 12:15: [id number] 00 Activity self-care Activity Resolve 2019-06-28 Claudia deficit d 06-03 16:15:00 [place] 12:15: [id number] 00 Safety structural Safety Active Claudia barriers 06-03 [place] present 12:15: [id number] 00 Safety cannot be Safety Active Claudia left alone 06-03 [place] 12:15: [id number] 00 Safety fall risk Safety Active Claudia factor 06-03 [place] present 12:15: [id number] 00 Safety risk for Safety Active Claudia hospitaliza 06-03 [place]buck tion 12:15: [id number] 00 Medication oral med Meds Active Claudia assistance 06-03 [place] required 12:15: [id number] 00 Medication injectable Meds Active Claudia med 06-03 [place] assistance 12:15: [id number] required 00 Medication knowledge/s Meds Active Claudia kill 06-03 [place] deficit: pt 12:15: [id number] 00 Medication potential Meds Active Claudia clinically 06-03 [place] significant 12:15: [id number] medication 00 issue Diagnoses knowledge/s Diagnoses Active Claudia kill 06-03 [place] deficit: cg 12:15: [id number] 00 Musculoskel transfer Musculoske Resolve 2019-07-23 Claudia etal assistance letal d 06-03 09:25:00 [place] required 12:15: [id number] 00 Musculoskel requires Musculoske Resolve 2019-07-23 Claudia etal human letal d 06-03 09:25:00 [place]buck assist to 12:15: [id number] leave home 00 Endo/Jono anti-coagul Endo/Jono Resolve 2019-08-12 Paige augustin d 06-06 11:55:00 Regeczi therapy 11:20: [id number] 00 Elimination constipatio Eliminatio Resolve 2019-07-14 Paige berman n d 06-06 16:15:00 Regeczi 11:20: [id number] 00 Cardio edema Cardiovasc Resolve 2019-08-12 Veronica guillen d 06-09 11:55:00 Sujata 10:30: [id number] 00 Safety can be left Safety Active Veronica alone for 06-09 Sujata only short 10:30: [id number] periods 00 24 Hr Diet nutrition NT: 24Hr Resolve 2019-06-24 Mary intake Diet d 06-10 16:15:00 [place] deficit 15:45: [id number] 00 24 Hr Diet knowledge/s NT: 24Hr Resolve 2019-06-10 Mary kill Diet d 06-10 15:45:00 [place] deficit - 15:45: [id number] pt 00 24 Hr Diet knowledge/s NT: 24Hr Resolve 2019-06-10 Mary kill Diet d 06-10 15:45:00 [place] deficit - 15:45: [id number] cg 00 Nutritional eating NT: Resolve 2019-06-10 Mary Barrier difficultie Barriers d 06-10 15:45:00 [place] s present 15:45: [id number] Nutritional knowledge/s NT: Resolve 2019-06-10 Mary Barrier kill Barriers d 06-10 15:45:00 [place] deficit - 15:45: [id number] pt 00 24 Hr Diet knowledge/s NT: 24Hr Resolve 2019-06-24 Veronica kill Diet d 06-14 16:15:00 Sujata deficit - 10:40: [id number] pt 00 Nutritional swallowing NT: Resolve 2019-06-24 Silas Barrier difficultie Barriers d 06-20 16:15:00 [place] s present 16:00: [id number] 00 Nutritional knowledge/s NT: Resolve 2019-06-24 Silas Barrier kill Barriers d 06-20 16:15:00 [place] deficit - 16:00: [id number] pt 00 Nutritional food NT: Resolve 2019-06-24 Silas Barrier consistency Barriers d 06-20 16:15:00 [place] requirement 16:00: [id number] [address]: Speech Resolve 2019-07-01 Silas production Prod d 06-20 13:30:00 [place] deficit 16:00: [id number] 00 Speech Prod knowledge/s ST: Speech Resolve 2019-07-01 Silas kill Prod d 06-20 13:30:00 [place] deficit - 16:00: [id number] pt [address]: Resolve 2019-07-01 Silas deficit Swallowing d 06-20 13:30:00 [place] 16:00: [id number] 00 Swallowing knowledge/s ST: Resolve 2019-07-01 Silas kill Swallowing d 06-20 13:30:00 [place] deficit - 16:00: [id number] pt 00 Social knowledge/s RAMA: Active [facility] kill Social 06-21 [place] deficit - Services 13:00: [id number] pt 00 Social knowledge/s RAMA: Active [facility] kill Social 06-21 [place] deficit - Services 13:00: [id number] cg 00 Respiratory nebulizer Respirator Resolve 2019-08-12 Eufemia treatment y d 06-24 11:55:00 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 14:45: 00 24 Hr Diet knowledge/s NT: 24Hr Resolve 2019-06-24 Mary kill Diet d 06-24 16:15:00 [place] deficit - 16:15: [id number] cg 00 Nutritional swallowing NT: Resolve 2018-092019-08-01 Silas Barrier difficultie Barriers d 0-01 11:00:00 [place] s present 14:45: [id number] 00 Nutritional knowledge/s NT: Resolve 2018-092019-08-01 Silas Barrier kill Barriers d 0-01 11:00:00 [place] deficit - 14:45: [id number] pt 00 Nutritional food NT: Resolve 2018-092019-08-01 Silas Barrier consistency Barriers d 0-01 11:00:00 [place] requirement 14:45: [id number] 00 Speech Prod knowledge/s ST: Speech Resolve 2018-092019-08-01 Eufemia kill Prod d 0-07 11:00:00 Carrier RN deficit - 16:30: pt 00 Neuro anxiety Neuro/Emot Resolve 2018-092019-09-08 Paige present ion d 0-17 12:30:00 Regeczi 16:15: [id number] 00 Respiratory knowledge/s Respirator Resolve 2018-092019-08-12 Eufemia [...] Resolve 2018-092019-09-08 Eufemia etal human letal d 10-01 12:30:00 Carrier RN assist to 11:00: leave home 00 Activity self-care Activity Unknown 2018-09 [place] deficit 1-12 [place] 15:30: [id number] 00 Neuro depressive Neuro/Emot Resolve 2018-092019-09-08 Lori feelings ion d 1-15 12:30:00 [place] present 11:55: 00 Activity self-care Activity Resolve 2018-092019-08-12 Lori deficit d 15 11:55:00 [place] 11:55: 00 Respiratory dyspnea Respirator Active 2018-09 Veronica chavez y 10-18 Sujata 10:50: [id number] 00 Endo/Jono anti-coagul Endo/Jono Resolve 2018-092019-09-08 Veronica augustin d 10-18 12:30:00 Sujata therapy 10:50: [id number] 00 Elimination urinary Eliminatio Active 2018-09 Veronica incontinenc n - Sujata e 10:50: [id number] 00 Elimination UTI within Eliminatio Active 2018-09 Veronica past 14 n - Sujata days 10:50: [id number] 00 Elimination constipatio Eliminatio Active 2018-09 Veronica n n - Sujata 10:50: [id number] 00 Elimination diarrhea Eliminatio Active 2018-09 Veronica n - Sujata 10:50: [id number] 00 Respiratory oxygen Respirator Active 2018-09 Veronica treatments y - Sujata in home 11:30: [id number] 00 Cardio pacemaker/I Cardiovasc Active 2018-09 Veronica CD ular 11-03 Sujata 11:48: [id number] 00 Respiratory nebulizer Respirator Active 2018-09 Eufemia treatment y 2-10 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 12:25: 00 Nutrition nutritional Nutrition Active 2018-09 Eufemia restriction 2-18 Carrier RN s 12:15: 00 Allergies, Adverse Reactions, Alerts Allergy Name Allergy Status Severity Reaction(s) Onset Inactive Treating Comments Type Date Date Clinician cephalexin Base Active Unknown Reaction Lesage Ingredient Unknown 2-14 Luis enoxaparin Base Active Unknown Reaction Lesage Ingredient Unknown 2-14 Luis dofetilide Base Active Unknown Reaction Lesage Ingredient Unknown 2-14 Luis latex Base Active Unknown Reaction Lesage Ingredient Unknown 2-14 Luis shellfish Base Active Unknown Reaction Lesage derived Ingredient Unknown 2-14 Luis Medications Ordered Filled Start Stop Current Ordering Indication Dosage Frequency Signature Comments Components Medication Medication Date Date Medication? Clinician (SIG) Name Name aspirin 81 aspirin 81 2018- No Galyanova Unknown Unknown mg chewable mg chewable 06-03 MDGenia tablet tablet na ondansetron ondansetron 2018- No Galyanova Unknown Unknown 4 mg 4 mg 06-03 Genia ALDRIDGE disintegrat disintegrat na ing tablet ing tablet rivaroxaban rivaroxaban 2018- Galyanova Unknown Unknown 15 mg 15 mg 06-03 MD,Genia tablet tablet na Lantus Lantus 2018- No Galyanova Unknown Unknown Solostar Solostar 06-03 Genia ALDRIDGE U-100 U-100 na Insulin 100 Insulin 100 unit/mL (3 unit/mL (3 mL) mL) subcutaneou subcutaneou s pen s pen HumaLOG HumaLOG No Galgabrielaova Unknown Unknown Pk Pk 06-03 Genia ALDRIDGE KwikPen KwikPen na (U-100) 100 (U-100) 100 unit/mL unit/mL subcutaneou subcutaneou s half-unit s half-unit pen pen metoprolol metoprolol No Galgabrielaova Unknown Unknown succinate succinate 06-03 Genia ALDRIDGE ER 100 mg ER 100 mg na tablet,exte tablet,exte nded nded release 24 release 24 hr hr montelukast montelukast No Galgabrielaova Unknown Unknown 10 mg 10 mg 06-03 Juana ALDRIDGEGenia tablet tablet na Vitamin D3 Vitamin D3 No Galyanova Unknown Unknown 2,000 unit 2,000 unit 06-03 Genia ALDRIDGE tablet tablet na omeprazole omeprazole No Galyanova Unknown Unknown 40 mg 40 mg 06-03 ,Genia capsule,del capsule,del na ayed ayed release release dicyclomine dicyclomine No Galyanova Unknown Unknown 10 mg 10 mg 06-03 ,Genia capsule capsule na rOPINIRole rOPINIRole 2018- No Galyanova Unknown Unknown 0.25 mg 0.25 mg 06-03 MDGenia tablet tablet na metOLazone metOLazone 2018- No Galyanova Unknown Unknown 2.5 mg 2.5 mg 06-03 ,Genia tablet tablet na Trelegy Trelegy No Galyanova Unknown Unknown Ellipta 100 Ellipta 100 06-03 Genia ALDRIDGE mcg-62.5 mcg-62.5 na mcg-25 mcg mcg-25 mcg powder for powder for inhalation inhalation allopurinol allopurinol 2018- No Galyanova Unknown Unknown 100 mg 100 mg 06-03- ,Genia tablet tablet na albuterol albuterol No Galyanova Unknown Unknown sulfate HFA sulfate HFA 06-03 ,Genia 90 90 na mcg/actuati mcg/actuati on aerosol on aerosol inhaler inhaler Tradjenta 5 Tradjenta 5 2018- No Galyanova Unknown Unknown mg tablet mg tablet 06-03 ,Genia na pravastatin pravastatin No Galyanova Unknown Unknown 80 mg 80 mg 06-03 MD,Genia tablet tablet na polyethylen polyethylen No Galyanova Unknown Unknown e glycol e glycol 06-03 ,Genia 3350 (bulk) 3350 (bulk) na powder powder Morton 3-6-9 Morton 3-6-9 2018- No Galyanova Unknown Unknown 1,200 mg 1,200 mg 06-03 MD,Genia capsule capsule na olopatadine olopatadine No Galyanova Unknown Unknown 0.1 % eye 0.1 % eye 06-03 MD,Genia drops drops na Vitamin Vitamin No Galyanova Unknown Unknown B-12 500 B-12 500 06-03 ,Genia mcg tablet mcg tablet na bisacodyl 5 bisacodyl 5 No [place] Unknown Unknown mg mg 06-03 MD,Genia tablet,fela tablet,fela na yed release yed release HYDROcodone HYDROcodone 2018- No Galyanova Unknown Unknown 5 5 06-03- Genia ALDRIDGE mg-acetamin mg-acetamin na ophen 325 ophen 325 [...] No [place] Unknown Unknown Solostar Solostar 06-06 ,Genia U-100 U-100 na Insulin 100 Insulin 100 unit/mL (3 unit/mL (3 mL) mL) subcutaneou subcutaneou s pen s pen Aspirin Low Aspirin Low No Galyanova Unknown Unknown Dose 81 mg Dose 81 mg 9- MD,Genia tablet,fela tablet,fela na yed release yed release metOLazone metOLazone 2018- No [place]anova Unknown Unknown 2.5 mg 2.5 mg 9 10- MD,Genia tablet tablet na Eliquis 5 Eliquis 5 No [place] Unknown Unknown mg tablet mg tablet 06-17 MD,Genia na senna 8.6 senna 8.6 2018- No [place] Unknown Unknown mg tablet mg tablet 06-17 10- MD,Genia na HYDROcodone HYDROcodone Yes Galyanova Unknown Unknown 10 10 9- MD,Genia mg-acetamin mg-acetamin na ophen 300 ophen 300 mg tablet mg tablet spironolact spironolact 2018-09 Yes [place] Unknown Unknown one 50 mg one 50 mg 0-04 MD,Genia tablet tablet na rOPINIRole rOPINIRole No [place] Unknown Unknown 0.25 mg 0.25 mg 9- MD,Genia tablet tablet na omega-3s omega-3s 2018-09 Yes [place] Unknown Unknown 300 300 0-14 MD,Genia mg-dha-epa- mg-dha-epa- na other other [id number] h oil 1,000 h oil 1,000 mg capsule mg capsule pregabalin pregabalin 2018-09- Yes [place] Unknown Unknown 50 mg 50 mg 0-14 10-22 MD,Genia capsule capsule na Lantus Lantus 2018-09- Yes [place] Unknown Unknown Solostar Solostar 0-14 10-31 ,Genia U-100 U-100 na Insulin 100 Insulin 100 unit/mL (3 unit/mL (3 mL) mL) subcutaneou subcutaneou s pen s pen sennosides sennosides 2018-09 Yes [place] Unknown Unknown 8.6 8.6 0-17 MD,Genia mg-docusate mg-docusate na sodium 50 sodium 50 mg tablet mg tablet potassium potassium 2018-09 Yes [place] Unknown Unknown chloride ER chloride ER 0-14 MD,Genia 20 mEq 20 mEq na tablet,exte tablet,exte nded nded release release fluticasone fluticasone 2018-09 Yes [place] Unknown Unknown propionate propionate 0-14 MD,Genia 50 50 na mcg/actuati mcg/actuati on nasal on nasal spray,suspe spray,suspe nsion nsion guaiFENesin guaiFENesin 2018-09 Yes [place] Unknown Unknown ER 600 mg ER 600 mg 0-14 MD,Genia tablet, tablet, na extended extended release 12 release 12 hr hr metOLazone metOLazone 2018-09 Yes [place] Unknown Unknown 2.5 mg 2.5 mg 0-14 MD,Genia tablet tablet na doxycycline doxycycline 2018-09- Yes [place] Unknown Unknown hyclate 100 hyclate 100 0-16 12-16 MD,Genia mg capsule mg capsule na pregabalin pregabalin 2018-09 Yes [place] Unknown Unknown 50 mg 50 mg 0-22 MD,Genia capsule capsule na allopurinol allopurinol 2018-09 Yes [place] Unknown Unknown 100 mg 100 mg 0-21 MD,Genia tablet tablet na Toujeo Max Toujeo Max 2018-09- Yes Law Unknown Unknown U-300 U-300 0-31 12-09 Abimael ALDRIDGE 300 unit/mL 300 unit/mL (3 mL) (3 mL) subcutaneou subcutaneou s insulin s insulin pen pen Adlyxin 10 Adlyxin 10 2018-09- Yes Law Unknown Unknown mcg/0.2 mcg/0.2 1-18 12-03 Abimael ALDRIDGE mL-20 mL-20 mcg/0.2 mL mcg/0.2 mL subcutaneou subcutaneou s pen s pen injector injector Adlyxin 10 Adlyxin 10 2018-09 Yes Law Unknown Unknown mcg/0.2 mcg/0.2 2-03 Abimael ALDRIDGE mL-20 mL-20 mcg/0.2 mL mcg/0.2 mL subcutaneou subcutaneou s pen s pen injector injector Toujeo Max Toujeo Max 2018-09 Yes Law Unknown Unknown U-300 U-300 2-09 Abimael ALDRIDGEoStar 300 unit/mL 300 unit/mL (3 mL) (3 mL) subcutaneou subcutaneou s insulin s insulin pen pen Vital Signs Vital Name Observation Time Observation Value Comments SYSTOLIC mm[Hg] 2019-09-16 18:09:27 128 mm[Hg] mm[Hg] Method: Sit SYSTOLIC mm[Hg] 2019-06-17 18:07:56 120 mm[Hg] mm[Hg] Method: Stand DIASTOLIC mm[Hg] 2019-09-16 18:09:27 78 mm[Hg] mm[Hg] Method: Sit DIASTOLIC mm[Hg] 2019-06-17 18:07:56 66 mm[Hg] mm[Hg] Method: Stand PULSE 2019-09-16 18:09:27 72 /min /min RESP RATE 2019-09-16 18:09:27 16 /min /min TEMP 2019-09-16 18:09:27 97.8 [degF] Procedures This patient has no known procedures. Results This patient has no known results.
--- OUTSIDE RECORDS SUMMARY | 2019-10-25 16:04 | XMS REPORT ---
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 Eufemia (current) (current) Carrier RN use of use of insulin insulin half-way half-way Diagnosis Active Eufemia (current) (current) Carrier RN use of use of aspirin aspirin Pain frequent Pain Mgmt Active Claudia pain 06-03 Delta 12:15: [id number] 00 Respiratory lung sounds Respirator Resolve 2019-08-12 Claudia deficit y d 06-03 11:55:00 Delta 12:15: [id number] 00 Respiratory dyspnea Respirator Resolve 2019-08-12 Claudia present y d 06-03 11:55:00 Delta 12:15: [id number] 00 Respiratory oxygen Respirator Resolve 2019-08-12 Claudia treatments y d 06-03 11:55:00 Delta in home 12:15: [id number] 00 Endo/Jono insulin Endo/Jono Active Claudia admn 06-03 Delta dependence 12:15: [id number] 00 Endo/Jono glucose Endo/Jono Active Claudia testing 06-03 Delta dependence 12:15: [id number] 00 Endo/Jono knowledge/s Endo/Jono Resolve 2019-08-12 Claudia kill d 06-03 11:55:00 Delta deficit: pt 12:15: [id number] 00 Endo/Jono knowledge/s Endo/Jono Resolve 2019-08-12 Claudia kill d 06-03 11:55:00 Delta deficit: cg 12:15: [id number] 00 Endo/Jono diabetic Endo/Jono Active Claudia foot care 06-03 Delta 12:15: [id number] 00 Sensory impaired Sensory Resolve 2019-09-08 Claudia hearing d 06-03 12:30:00 Delta 12:15: [id number] 00 Nutrition nutritional Nutrition Resolve 2019-09-08 Claudia restriction d 06-03 12:30:00 Delta s 12:15: [id number] 00 Elimination urinary Eliminatio Resolve 2019-07-14 Claudia incontinenc n d 06-03 16:15:00 Delta e 12:15: [id number] 00 Elimination UTI within Eliminatio Resolve 2019-07-14 Claudia past 14 n d 06-03 16:15:00 Delta days 12:15: [id number] 00 Neuro confusion Neuro/Emot Resolve 2019-09-08 Claudia present ion d 06-03 12:30:00 Delta 12:15: [id number] 00 Neuro impaired Neuro/Emot Resolve 2019-09-08 Claudia decision-ma ion d 06-03 12:30:00 [facility] 12:15: [id number] 00 Neuro memory Neuro/Emot Resolve 2019-09-08 Claudia deficit ion d 06-03 12:30:00 Delta needing 12:15: [id number] supervision 00 Activity ADL Activity Resolve 2019-09-08 Claudia assistance d 06-03 12:30:00 Delta required 12:15: [id number] 00 Activity self-care Activity Unknown Claudia deficit 06-03 Delta 12:15: [id number] 00 Safety structural Safety Active Claudia barriers 06-03 Delta present 12:15: [id number] 00 Safety cannot be Safety Active Claudia left alone 06-03 Delta 12:15: [id number] 00 Safety fall risk Safety Active Claudia factor 06-03 Delta present 12:15: [id number] 00 Safety risk for Safety Active Claudia hospitaliza 06-03 Delta tion 12:15: [id number] 00 Medication oral med Meds Active Claudia assistance 06-03 Delta required 12:15: [id number] 00 Medication injectable Meds Active Claudia med 06-03 Delta assistance 12:15: [id number] required 00 Medication knowledge/s Meds Active Claudia kill 06-03 Delta deficit: pt 12:15: [id number] 00 Medication potential Meds Active Claudia clinically 06-03 Delta significant 12:15: [id number] medication 00 issue Diagnoses knowledge/s Diagnoses Active Claudia kill 06-03 Delta deficit: cg 12:15: [id number] 00 Musculoskel transfer Musculoske Resolve 2019-07-23 Claudia etal assistance letal d 06-03 09:25:00 Delta required 12:15: [id number] 00 Musculoskel requires Musculoske Resolve 2019-07-23 Claudia etal human letal d 06-03 09:25:00 Delta assist to 12:15: [id number] leave home 00 Endo/Jono anti-coagul Endo/Jono Resolve 2019-08-12 Paige augustin d 06-06 11:55:00 Regeczi therapy 11:20: [id number] 00 Elimination constipatio Eliminatio Resolve 2019-07-14 Paige berman n d 06-06 16:15:00 Regeczi 11:20: [id number] 00 Cardio edema Cardiovasc Resolve 2019-08-12 Veronica guillen d 06-09 11:55:00 Sujata 10:30: [id number] 00 Safety can be left Safety Active Veronica alone for 06-09 Sujata only short 10:30: [id number] periods 00 24 Hr Diet nutrition NT: 24Hr Resolve 2019-06-24 Mary intake Diet d 06-10 16:15:00 Helena deficit 15:45: [id number] 00 24 Hr Diet knowledge/s NT: 24Hr Resolve 2019-06-10 Mary kill Diet d 06-10 15:45:00 Helena deficit - 15:45: [id number] pt 00 24 Hr Diet knowledge/s NT: 24Hr Resolve 2019-06-10 Mary kill Diet d 06-10 15:45:00 Helena deficit - 15:45: [id number] cg 00 Nutritional eating NT: Resolve 2019-06-10 Mary Barrier difficultie Barriers d 06-10 15:45:00 Helena s present 15:45: [id number] 00 Nutritional knowledge/s NT: Resolve 2019-06-10 Mary Barrier kill Barriers d 06-10 15:45:00 Helena deficit - 15:45: [id number] pt 00 24 Hr Diet knowledge/s NT: 24Hr Resolve 2019-06-24 Veronica kill Diet d 06-14 16:15:00 Sujata deficit - 10:40: [id number] pt 00 Nutritional swallowing NT: Resolve 2019-06-24 Silas Barrier difficultie Barriers d 06-20 16:15:00 Zanfordino s present 16:00: [id number] 00 Nutritional knowledge/s NT: Resolve 2019-06-24 Silas Barrier kill Barriers d 06-20 16:15:00 Zanfordino deficit - 16:00: [id number] pt 00 Nutritional food NT: Resolve 2019-06-24 Silas Barrier consistency Barriers d 06-20 16:15:00 Zanfordino requirement 16:00: [id number] [address]: Speech Resolve 2019-07-01 Silas production Prod d 06-20 13:30:00 Zanfordino deficit 16:00: [id number] 00 Speech Prod knowledge/s ST: Speech Resolve 2019-07-01 Silas kill Prod d 06-20 13:30:00 Zanfordino deficit - 16:00: [id number] pt [address]: Resolve 2019-07-01 Silas deficit Swallowing d 06-20 13:30:00 Zanfordino 16:00: [id number] 00 Swallowing knowledge/s ST: Resolve 2019-07-01 Silas kill Swallowing d 06-20 13:30:00 Zanfordino deficit - 16:00: [id number] pt 00 Social knowledge/s RAMA: Active [facility] kill Social 06-21 [place] deficit - Services 13:00: [id number] pt 00 Social knowledge/s RAMA: Active [facility] kill Social 24 [place] deficit - Services 13:00: [id number] cg 00 Respiratory nebulizer Respirator Resolve 2019-08-12 Eufemia treatment y d 06-24 11:55:00 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 14:45: 00 24 Hr Diet knowledge/s NT: 24Hr Resolve 2019-06-24 Mary kill Diet d 06-24 16:15:00 Helena deficit - 16:15: [id number] cg 00 Nutritional swallowing NT: Resolve 2018-092019-08-01 Silas Barrier difficultie Barriers d 0-01 11:00:00 Zanfordino s present 14:45: [id number] 00 Nutritional knowledge/s NT: Resolve 2018-092019-08-01 Silas Barrier kill Barriers d 0-01 11:00:00 Zanfordino deficit - 14:45: [id number] pt 00 Nutritional food NT: Resolve 2018-092019-08-01 Silas Barrier consistency Barriers d 0-01 11:00:00 Zanfordino requirement 14:45: [id number] 00 Speech Prod knowledge/s ST: Speech Resolve 2018-092019-08-01 Eufemia kill Prod d 0-07 11:00:00 Carrier RN deficit - 16:30: pt 00 Neuro anxiety Neuro/Emot Resolve 2018-092019-09-08 Paige present ion d 0-17 12:30:00 Regeczi 16:15: [id number] 00 Respiratory knowledge/s Respirator Resolve 2018-092019-08-12 Eufemia [...] Unknown 2018-09 [place] deficit 1-12 Graves 15:30: [id number] 00 Neuro depressive Neuro/Emot Resolve 2018-092019-09-08 Lori feelings ion d 1-15 12:30:00 Vallely present 11:55: 00 Activity self-care Activity Resolve 2018-092019-08-12 Lori deficit d 15 11:55:00 Vallely 11:55: 00 Respiratory dyspnea Respirator Active 2018-09 Veronica chavez y 10-18 Sujata 10:50: [id number] 00 Endo/Jono anti-coagul Endo/Jono Resolve 2018-092019-09-08 Veronica augustin d 10-18 12:30:00 Sujata therapy 10:50: [id number] 00 Elimination urinary Eliminatio Active 2018-09 Veronica incontinenc n - Sujata e 10:50: [id number] 00 Elimination UTI within Eliminatio Active 2018-09 Veronica past 14 n 1-21 Sujata days 10:50: [id number] 00 Elimination constipatio Eliminatio Active 2018-09 Veronica n n - Sujata 10:50: [id number] 00 Elimination diarrhea Eliminatio Active 2018-09 Veronica n - Sujata 10:50: [id number] 00 Respiratory oxygen Respirator Active 2018-09 Veronica treatments y 1- Sujata in home 11:30: [id number] 00 Cardio pacemaker/I Cardiovasc Active 2018-09 Veronica CD ular 2- Sujata 11:48: [id number] 00 Respiratory nebulizer Respirator Active 2018-09 Eufemia [...] deficit: pt 16:45: 00 Nutrition nutritional Nutrition Active 2018-09 Macie restriction 2- Tra[place] s 10:45: [id number] 00 Activity ADL Activity Active Eufemia assistance [...] Date Clinician cephalexin Base Active Unknown Reaction [place] Ingredient Unknown 2-14 Luis enoxaparin Base Active Unknown Reaction [place] Ingredient Unknown 2-14 Luis dofetilide Base Active Unknown Reaction [place] Ingredient Unknown 2-14 Luis latex Base Active Unknown Reaction [place] Ingredient Unknown 214 Luis shellfish Base Active Unknown Reaction [place] derived Ingredient Unknown -14 Luis eggs Unknown Active Unknown Nausea and [...] tablet ing tablet rivaroxaban rivaroxaban 2018- No Jessica Unknown Unknown 15 mg 15 mg 06-03 Genia ALDRIDGE tablet tablet na Lantus Lantus 2018- No Galyanova Unknown Unknown Solostar Solostar 06-03 Genia ALDRIDGE U-100 U-100 na Insulin 100 Insulin 100 unit/mL (3 unit/mL (3 mL) mL) subcutaneou subcutaneou s pen s pen HumaLOG HumaLOG No Jessica Unknown Unknown Pk Pk 06-03 Genia ALDRIDGE [...] ALDRIDGE tablet tablet na omeprazole omeprazole No Jessica Unknown Unknown 40 mg 40 mg 06-03 Genia ALDRIDGE capsule,del capsule,del na ayed ayed release release dicyclomine dicyclomine No Galyanova Unknown Unknown 10 mg 10 mg 06-03 MD,Genia capsule capsule na rOPINIRole rOPINIRole 2018- No [place] Unknown Unknown 0.25 mg 0.25 mg 06-03- MD,Genia tablet tablet na metOLazone metOLazone 2018- No [place] Unknown Unknown 2.5 mg 2.5 mg 06-03- MD,Genia tablet tablet na Trelegy Trelegy No [...] Unknown Unknown mg tablet mg tablet 06-03 10- MD,Genia na pravastatin pravastatin No [place] Unknown Unknown 80 mg 80 mg 06-03 MD,Genia tablet tablet na polyethylen polyethylen No [place] Unknown Unknown e glycol e glycol 06-03 MD,Genia 3350 (bulk) 3350 (bulk) na powder powder [place] 3-6-9 [place] 3-6-9 2018- No Galyanova Unknown Unknown 1,200 mg 1,200 mg 06-03- MD,Genia capsule capsule na olopatadine olopatadine No [...] No [place] Unknown Unknown 5 5 06-03- MD,Genia mg-acetamin mg-acetamin na ophen 325 ophen [...] 06-03 MD,Genia tablet tablet na Lantus Lantus [place] Unknown Unknown Solostar Solostar 06-06 MD,Genia U-100 U-100 na Insulin 100 Insulin 100 unit/mL (3 unit/mL (3 mL) mL) subcutaneou subcutaneou s pen s pen Aspirin Low Aspirin Low No G[place]anova Unknown Unknown Dose 81 mg Dose 81 mg 06-03 MD,Genia tablet,fela tablet,fela na yed release yed release metOLazone metOLazone 2018- [place] Unknown Unknown 2.5 mg 2.5 mg 06-07 MD,Genia tablet tablet na Eliquis 5 Eliquis 5 No [place] Unknown Unknown mg tablet mg tablet 06-17 MD,Genia na senna 8.6 senna 8.6 2018- No [place] Unknown Unknown mg tablet mg tablet 06-17- MD,Genia na HYDROcodone HYDROcodone No [place] Unknown [...] 0-14 MD,Genia mg-dha-epa- mg-dha-epa- na other other [id number] h oil 1,000 h oil 1,000 mg [...] Unknown Unknown U-300 U-300 0-31 12-09 Abimael ALDRIDGEoStar 300 unit/mL 300 unit/mL (3 [...] pen s pen injector injector Toujeo Max Toulyndseyo Max 2018-09 Yes Law Unknown Unknown U-300 U-300 2- Abimael ALDRIDGEoStar 300 unit/mL 300 unit/mL (3 mL) (3 mL) subcutaneou subcutaneou s insulin s insulin pen pen Vital Signs Vital Name Observation Time Observation Value Comments SYSTOLIC mm[Hg] 2019-09-29 18:09:40 126 mm[Hg] mm[Hg] Method: Sit SYSTOLIC mm[Hg] 2019-06-17 18:07:56 120 mm[Hg] mm[Hg] Method: Stand DIASTOLIC mm[Hg] 2019-09-29 18:09:40 78 mm[Hg] mm[Hg] Method: Sit DIASTOLIC mm[Hg] 2019-06-17 18:07:56 66 mm[Hg] mm[Hg] Method: Stand PULSE 2019-09-29 18:09:40 70 /min /min RESP RATE 2019-09-29 18:09:40 16 /min /min TEMP 2019-09-29 18:09:40 97.3 [degF] Procedures This patient has no known procedures. Results This patient has no known results.
--- OUTSIDE RECORDS SUMMARY | 2019-10-25 16:04 | XMS REPORT | Summary of Care ---
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 Reason for Visit Reason Comments Abdominal Pain diahrea Back Pain Chest Pain had chest pain yesterday morning 11am Follow Up Facial Pain sinus congestion Encounter Details Date Type Department Care Team Description 10/05/2019 Office Visit [facility] Sore throat (Primary Dx); Practice MD January Uncontrolled type 2 diabetes mellitus with complication, with long-term current use of insulin (HCC); [address] [facility] Anemia, unspecified type; [place] [address] [place] [address] URTI (acute upper respiratory infection); [phone] Diarrhea, unspecified type Allergies Active Allergy Reactions Severity Noted Date Comments Egg Phospholipids, Egg Lecithin 10/20/2007 Keflex Swelling 10/20/2007 Latex Dermatologic Reaction 08/06/2016 Lovenox Hives 12/16/2011 Shell Fish Swelling 11/07/2008 Dofetilide Other High 12/16/2011 documented as of this encounter (statuses as of 10/05/2019) Medications Medication Sig Dispensed Refills Start Date End Date Status cyanocobalamin (B-12) 500 Take 500 mcg by 0 Active MCG Oral Tab mouth EVERY MORNING. [place]-3 Fatty Acids (FISH Take 1,000 mg 0 [...] Reported on 01/11/2019 3:48 PM Blood Glucose Monitoring USE DIRECTED 1 Each [...] not apply 1 Device 1 07/11/2019 Active Budget Manager (FREESTYLE VIKKI route DIRECTED. 14 DAY READER) [...] am and 75 pm 0 Active Dial, (ZAIRE MEIOSTBLAYNE) 300 UNIT/ML Subcutaneous Solution Pen-injector Insulin Pen [...] Tab 1 09/18/2019 Active Oral Tab DAILY. bgbbbmqtswc-yweapxsvmlrcn-y Take 1 INHL by inhalation 60 Each 5 09/30/2019 Active ilanterol (TRELEGY ELLIPTA) DAILY. 100-62.5-25 MCG/INH Inhalation AEROSOL POWDER, BREATH ACTIVATED documented as of this encounter (statuses as of 10/05/2019) Active Problems Problem Noted Date Elective replacement indicated for pacemaker 03/11/2019 Mechanical breakdown of cardiac electronic device 02/24/2019 Overview: Added automatically from request for surgery [id number] Spinal stenosis of lumbar region with neurogenic [...] 08/30/2015 Obstructive sleep apnea (adult) (pediatric) 03/28/2014 USKH on CPAP 03/28/2014 Overview: [employer] 9 cm Primary pulmonary hypertension 12/12/2013 Left knee pain 07/01/2013 Pacemaker 04/12/2012 Overview: Inserted 11.17.[address] Pineda for Sinus node dysfunction Diabetes mellitus 07/03/2011 BMI 40.0-44.9, adult 03/13/2011 HTN (hypertension) 11/01/2010 COPD (chronic obstructive pulmonary disease) 11/01/2010 Overview: [facility] [employer] 2 lpm q 24 hrs. 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 with INR goal of 2.0-3.0 06/08/2008 Overview: 05/2019-switched to Xarelto Managed by: aTlia Mathis Referring Provider: Sienna Indication: afib, chronic Target Range: 2.0-3.0 Duration: Indefinite Additional factors influencing anticoagulation: Additional factors influencing anticoagulation: CHADS2 score of 3 for age > 75, hypertension, diabetes [id number] score of 5 for age > 75, hypertension, diabetes, female gender Allopurinol increases warfarin effect [place] 3 fatty acid increases bleeding risk Omeprazole [...] as of this encounter (statuses as of 10/05/2019) Resolved Problems Problem Noted Date Resolved Date Aftercare following joint replacement 11/03/2011 09/09/2012 Encounter for therapeutic drug monitoring 04/10/2010 11/18/2010 Diabetes mellitus type II 10/20/2007 07/03/2011 CAD (coronary artery disease) 05/24/2010 Overview: 40% LAD cath- 2006 documented as of this encounter (statuses as of 10/05/2019) Immunizations Name Administration Dates Next Due PNEUMOCOCCAL [...] Sign Reading Time Taken Comments Blood Pressure 112/76 10/05/2019 10:22 AM EST Pulse 69 10/05/2019 10:22 AM EST Temperature 36.8 10/05/2019 10:22 AM C (98.3 EST F) Respiratory Rate - - Oxygen Saturation 100% 10/05/2019 10:22 AM EST Inhaled Oxygen Concentration - - Weight 109.4 kg (241 lb 3.2 oz) 10/05/2019 10:22 AM EST Height 162.6 cm (5' 4") 10/05/2019 10:22 AM EST Body Mass Index 41.4 10/05/2019 10:22 AM EST documented in this encounter Patient Instructions Patient InstructionsJanuary Lopez MD - 10/05/2019 10:40 AM EST1. Take Torsemide 40 mg (2 of 20 mg) once a day until diarrhea resolves and normal oral intake restored 2. Follow up in 2 weeksElectronically signed by January Lopez MD at 04/2020 11:19 AM EST documented in this encounter Progress Notes January Lopez MD - 10/05/2019 10:40 AM EST Patient: Emi Forte Date of Service: 10/05/2019 Subjective: Emi Forte is a 79-y.o. female who presents for Chief Complaint Patient presents with Abdominal Pain diahrea Back Pain Chest Pain had chest pain yesterday morning 11am Follow Up Facial Pain sinus congestion Patient comes with complains of feeling shawn for 3-4 days: chills, nasal congestion, sore throat, dry cough Also - started to have diarrhea on Thursday - watery, with abdominal cramps Last episode - last night Lost 6 lb since last visit Past Medical History: Diagnosis Date Anemia Dr. [...] Sleep apnea CPAP Outpatient Medications as of 10/05/2019 Medication Sig Dispense Refill albuterol (PROVENTIL, VENTOLIN) [...] DAILY. 60 Cap 5 Continuous Blood Gluc Budget Manager (FREESTYLE VIKKI 14 DAY READER) Does not [...] NOSTRIL ONE TIME A DAY1 Bottle 5 gvazgiztcys-tsruvstmkcbwr-limhsmjqwk (TRELEGY ELLIPTA) 100-62.5-25 MCG/ INH Inhalation AEROSOLPOWDER, [...] Tab 0 Insulin Glargine, 1 Unit Dial, (ZAIRE STINSON) 300 UNIT/ML Subcutaneous Solution Pen-injector 75 units [...] in both eyes DAILY. 5 mL 3 [place]-3 Fatty Acids (FISH OIL) 1000 MG Oral [...] current facility-administered medications on file as of 10/05/2019. Allergies Allergen Reactions Tikosyn [Dofetilide] Other Eggs [Egg Phospholipids, Egg Lecithin] Keflex Swelling Latex Dermatologic Reaction Lovenox Hives Shell Fish Swelling Review of Systems: All remaining review of systems was negative. Objective: BP 112/76 (BP Location: Right arm, Patient Position: Sitting) Pulse 69 Temp 98.3 F (36.8 C) (Tympanic) Ht 5' 4" (1.626 m) Wt 241 lb 3.2 oz (109.4 kg) SpO2 100% BMI 41.4 kg/m2 GENERAL: alert, fatigued NOSE: mild congestion, no sinus tenderness THROAT: mild oropharyngeal erythema NECK: supple, symmetrical, trachea midline and mild anterior cervical adenopathy LUNGS: clear to auscultation bilaterally HEART: regular rate and rhythm, S1, S2 normal, no murmur, click, rub or gallop ABDOMEN: soft, diffusely tender. Bowel sounds normal. No masses, no organomegaly EXTREMITIES: no edema, redness or tenderness in the calves or thighs Rapid Strep-: negative ICD-9-CM ICD-10-CM 1. Sore throat 462 J02.9 STREP A ANTIGEN (AMB POCT) THROAT STREP SCREEN CULTURE THROAT STREP SCREEN CULTURE 2. Uncontrolled type 2 diabetes mellitus with complication, with long-term current use of insulin (HCC) 250.82 E11.8 COMPREHENSIVE METABOLIC PANEL V58.67 E11.65 GLYCOHEMOGLOBIN A1C Z79.4 REFER TO OPHTHALMOLOGY 3. Anemia, unspecified type 285.9 D64.9 CBC WITH DIFFERENTIAL 4. URTI (acute upper respiratory infection) 465.9 J06.9 5. Diarrhea, unspecified type Likely viral 787.91 R19.7 Patient Instructions 1. Take Torsemide 40 mg (2 of 20 mg) once a day until diarrhea resolves and normal oral intake restored 2. Follow up in 2 weeks Author: January Lopez MD documented in this encounter Plan of Treatment Date Type Specialty Care Team Description 10/19/[address] [facility] January Lopez MD [address] [place] [address] [phone] 12/06/2019 [facility] Arrhythmia [facility] 02/02/2020 Office Visit Pulmonary Alirio Cabello MD [address] [place] [address] [phone] 02/22/2020 Office Visit Cardiology Ta Waddell MD [address] [place] [address] [phone] 04/06/2020 Office Visit [facility] Name Type Priority Associated Diagnoses Date/Time COMPREHENSIVE METABOLIC Lab Routine Uncontrolled type 2 10/05/2019 11:17 AM PANEL diabetes mellitus with EST complication, with long-term current use of insulin ([facility]) GLYCOHEMOGLOBIN A1C Lab Routine Uncontrolled type 2 10/05/2019 11:17 AM diabetes mellitus with EST complication, with long-term current use of insulin ([facility]) CBC WITH DIFFERENTIAL Lab Routine Anemia, unspecified type 10/05/2019 11: 17 AM EST THROAT STREP SCREEN CULTURE Lab Routine Sore throat 10/05/2019 11:03 AM EST Name Type Priority Associated Diagnoses Order Schedule THROAT STREP SCREEN Lab Routine Sore throat 1 Occurrences starting CULTURE 10/05/2019 until 04/02/2020 Name Type Priority Associated Diagnoses Order Schedule REFER TO OPHTHALMOLOGY Referral Routine Uncontrolled type 2 Expected: diabetes mellitus with 10/05/2019, Expires: complication, with 10/05/2020 long-term current use of insulin (HCC) Health Maintenance Due Date Last Done Comments Diabetic Eye Exam 06/11/2018 06/11/2017, 07/23/2016, 10/31/2014, Additional history exists HEMOGLOBIN A1C 08/03/2019 05/03/2019, [...] Problems Progress Blood Pressure Blood Pressure HTN 112/76 No [place], < 140/90 (hypertension) (10/05/2019 January, 10:22 AM EST) Note: Hypertension Care Plan Based on [...] Educational Resources: National Heart, Lung, & Blood [place] http://nhlbi.nih.gov/hbp/index.html The DASH Diet Eating Plan http://www.nhlbi.nih.gov/health/health-topics/ topics/dash/ Academy of Nutrition & DIetetics http://eatright.org National Smoking Cessation Site http://smokefree.gov Blood Pressure < Blood Pressure 112/76 (10/05/2019 No January Lopez, 140/90 10:22 AM EST) Note: This is an individualized treatment (blood pressure) goal for Emi Forte: Displayed above (on the left) is your goal for blood pressure control. Your most recent blood pressure is also shown above, on the right. You should try to achieve blood pressures that are lower than your goal listed above (on the left). Weight increase vs. 18 CHF 13.2 (10/05/2019 10:22 AM No January Lopez MD mo min [...] my blood sugar results (including dextrose sticks). [employer] is safe and secure way for [...] my blood sugar results (including dextrose sticks). [employer] is safe and secure way for you [...] Diabetes 9.7 (05/03/2019 8:06 No January Lopez, MINNIE EDT) Note: This is an individualized treatment (diabetes control, HgbA1C) goal for Emi Forte: Displayed above is your progress towards your HgbA1C goal. Your goal is shown above (on the left); your most recent HgbA1C is shown on the right. Note that lower numbers are better. Congestive Heart Failure Lifestyle Chronic diastolic heart No January Lopez, failure Note: Congestive Heart Failure (CHF) Care [...] eating or drinking. record my weight daily. [employer] is safe and secure way for you [...] and any After Visit Summaries. Consume a ig-uepyp-hjjh diet Lifestyle No January Lopez MD Note: [...] of this encounter Implants Implanted Type Area Chainsaw Mechanic Device Shelf Model / Identifier Expiration Serial / Lot Date Accent Dual Chamber [id number] - [id number] Left: [employer] 02/26/2012 [id number] / Implanted: Qty: 1 on 11/06/2010 at [facility] [employer] [id number] / Lead Tendril # [id number]-52 - [id number] Left: ST SIM 07/28/2013 [id number] / Implanted: Qty: 1 on 11/06/2010 at [facility]/ [employer] [id number] / ER Tendril Lead 8tc/58cm - [id number] Left: [employer] SIM 10/28/2013 2088TC/ 58CM / Implanted: Qty: 1 on 11/06/[address] [facility] [employer] [id number] / Bone Cement, Double 80gm - [id number] Right: DEPUY [id number] / Implanted: Qty: 1 on 10/20/2011 at [facility] / [id number] Tibial Plate Size 5 Nexgen - [id number] Right: LONA MONCADA 5980-47- 01 / Implanted: Qty: 1 on 10/20/2011 at [facility] [employer] / [id number] Lps-Flex Option Femoral E Rt - [id number] Right: LONA MONCADA 5964-15 -52 / Implanted: Qty: 1 on 10/20/2011 at [facility] [employer] / [id number] Lps-Flex Taper Plugs - [id number] Right: LONA MONACDA / Implanted: Qty: 1 on 10/20/2011 at [facility] [employer] / [id number] Art Surface 12mm Green - [id number] Right: LONA MONCADA / Implanted: Qty: 1 on 10/20/2011 at [facility] [employer] / [id number] Assurity Mri [id number] Generator - [id number] ST. SIM 08/27/2020 [id number] / Implanted: Qty: 1 on 03/11/2019 by Talha Pineda MD at [facility]. [id number] / documented as of this encounter Procedures Procedure Name Priority Date/Time Associated Diagnosis Comments STREP A ANTIGEN Routine 10/05/2019 11:03 AM Sore throat Results for this (AMB POCT) EST procedure are in the results section. documented in this encounter Results STREP A ANTIGEN (AMB POCT) (10/05/2019 11:03 AM EST) Strep A Antigen Negative Negative [facility] [address] (POCT) POCT Control Line Present Present [facility] POCT Strep A Antigen Yes, Sent for [facility] Confirm (POCT) Confirmation POCT Lot Number [id number] [facility] [address] POCT Expiration Date 07/2020 [facility] [address] POCT Specimen Performing Organization Address City/State/Zipcode Phone Number [facility] [address] [place] [address] documented in this encounter Visit Diagnoses Diagnosis Uncontrolled type 2 diabetes mellitus with complication, with long-term current use of insulin (HCC) Anemia, unspecified type Sore throat Acute pharyngitis URTI (acute upper respiratory infection) Acute upper respiratory infections of unspecified site Diarrhea, unspecified type documented in this encounter Insurance Payer Benefit Plan / Subscriber ID Effective Dates Phone Address Type Group [employer] xxxxxxxxxxxx Effective for [employer] ADVANTAGE MEDICARE BLUE all dates PPO [phone]) Guarantor Name Account Type Relation to Date of Phone Billing Address Patient Emi Forte Personal/Family [phone] (Home) [place], [place] [phone] [id number] (Work) documented as of this encounter Advance Directives Type Date Recorded 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
--- OUTSIDE RECORDS SUMMARY | 2019-10-25 16:04 | XMS REPORT ---
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 Diagnosis Active Eufemia (current) (current) Carrier RN use of use of anticoagula anticoagula nts nts alf alf Diagnosis Active Eufemia (current) (current) Carrier RN use of use of insulin insulin alf alf Diagnosis Active Eufemia (current) (current) Carrier RN use of use of aspirin aspirin Pain frequent Pain Mgmt Active Claudia pain 06-03 Savage 12:15: [id number] 00 Respiratory lung sounds Respirator Resolve 2019-08-12 Claudia deficit y d 06-03 11:55:00 Savage 12:15: [id number] 00 Respiratory dyspnea Respirator Resolve 2019-08-12 Claudia present y d 06-03 11:55:00 Savage 12:15: [id number] 00 Respiratory oxygen Respirator Resolve 2019-08-12 Claudia treatments y d 06-03 11:55:00 Savage in home 12:15: [id number] 00 Endo/Jono insulin Endo/Jono Active Claudia admn 06-03 Savage dependence 12:15: [id number] 00 Endo/Jono glucose Endo/Jono Active Claudia testing 06-03 Savage dependence 12:15: [id number] 00 Endo/Jnoo knowledge/s Endo/Jono Resolve 2019-08-12 Claudia kill d 06-03 11:55:00 Savage deficit: pt 12:15: [id number] 00 Endo/Jono knowledge/s Endo/Jono Resolve 2019-08-12 Claudia kill d 06-03 11:55:00 Savage deficit: cg 12:15: [id number] 00 Endo/Jono diabetic Endo/Jono Active Claudia foot care 06-03 Savage 12:15: [id number] 00 Sensory impaired Sensory Resolve 2019-09-08 Claudia hearing d 06-03 12:30:00 Savage 12:15: [id number] 00 Nutrition nutritional Nutrition Resolve 2019-09-08 Claudia restriction d 06-03 12:30:00 Loyd s 12:15: [id number] 00 Elimination urinary Eliminatio Resolve 2019-07-14 Claudia incontinenc n d 06-03 16:15:00 Savage e 12:15: [id number] 00 Elimination UTI within Eliminatio Resolve 2019-07-14 Claudia past 14 n d 06-03 16:15:00 Savage days 12:15: [id number] 00 Neuro confusion Neuro/Emot Resolve 2019-09-08 Clauida present ion d 06-03 12:30:00 Savage 12:15: [id number] 00 Neuro impaired Neuro/Emot Resolve 2019-09-08 Claudia decision-ma ion d 06-03 12:30:00 [facility] 12:15: [id number] 00 Neuro memory Neuro/Emot Resolve 2019-09-08 Claudia deficit ion d 06-03 12:30:00 Savage needing 12:15: [id number] supervision 00 Activity ADL Activity Resolve 2019-09-08 Claudia assistance d 06-03 12:30:00 Savage required 12:15: [id number] 00 Activity self-care Activity Resolve 2019-06-28 Claudia deficit d 06-03 16:15:00 Savage 12:15: [id number] 00 Safety structural Safety Active Claudia barriers 06-03 Savage present 12:15: [id number] 00 Safety cannot be Safety Active Claudia left alone 06-03 Savage 12:15: [id number] 00 Safety fall risk Safety Active Claudia factor 06-03 Savage present 12:15: [id number] 00 Safety risk for Safety Active Claudia hospitaliza 06-03 Savage tion 12:15: [id number] 00 Medication oral med Meds Active Claudia assistance 06-03 Savage required 12:15: [id number] 00 Medication injectable Meds Active Claudia med 06-03 Savage assistance 12:15: [id number] required 00 Medication knowledge/s Meds Active Claudia kill 06-03 Savage deficit: pt 12:15: [id number] 00 Medication potential Meds Active Claudia clinically 06-03 Savage significant 12:15: [id number] medication 00 issue Diagnoses knowledge/s Diagnoses Active Claudia kill 06-03 Savage deficit: cg 12:15: [id number] 00 Musculoskel transfer Musculoske Resolve 2019-07-23 Claudia etal assistance letal d 06-03 09:25:00 Savage required 12:15: [id number] 00 Musculoskel requires Musculoske Resolve 2019-07-23 Claudia etal human letal d 06-03 09:25:00 Savage assist to 12:15: [id number] leave home 00 Endo/Jono anti-coagul Endo/Jono Resolve 2019-08-12 Paige augustin d 06-06 11:55:00 Regeczi therapy 11:20: [id number] 00 Elimination constipatio Eliminatio Resolve 2019-07-14 Paige berman n d 06-06 16:15:00 Regeczi 11:20: [id number] 00 Cardio edema Cardiovasc Resolve 2019-08-12 Veronica guillen d 06-09 11:55:00 Sujata 10:30: [id number] 00 Safety can be left Safety Active Veronica alone for 06-09 Sujata only short 10:30: [id number] periods 00 24 Hr Diet nutrition NT: 24Hr Resolve 2019-06-24 Mary intake Diet d 06-10 16:15:00 [place] deficit 15:45: [id number] 00 24 Hr Diet knowledge/s NT: 24Hr Resolve 2019-06-10 Mary kill Diet d 06-10 15:45:00 [place] deficit - 15:45: [id number] pt 00 24 Hr Diet knowledge/s NT: 24Hr Resolve 2019-06-10 Mary kill Diet d 06-10 15:45:00 [place] deficit - 15:45: [id number] cg 00 Nutritional eating NT: Resolve 2019-06-10 Mary Barrier difficultie Barriers d 06-10 15:45:00 [place] s present 15:45: [id number] 00 Nutritional knowledge/s NT: Resolve 2019-06-10 Mary Barrier kill Barriers d 06-10 15:45:00 [place] deficit - 15:45: [id number] pt 00 24 Hr Diet knowledge/s NT: 24Hr Resolve 2019-06-24 Veronica kill Diet d 06-14 16:15:00 Sujata deficit - 10:40: [id number] pt 00 Nutritional swallowing NT: Resolve 2019-06-24 Silas Barrier difficultie Barriers d 06-20 16:15:00 [place] s present 16:00: [id number] 00 Nutritional knowledge/s NT: Resolve 2019-06-24 Silas Barrier kill Barriers d 06-20 16:15:00 Z[place] deficit - 16:00: [id number] pt 00 Nutritional food NT: Resolve 2019-06-24 Silas Barrier consistency Barriers d 06-20 16:15:00 [place] requirement 16:00: [id number] [address]: Speech Resolve 2019-07-01 Silas production Prod d 06-20 13:30:00 [place] deficit 16:00: [id number] 00 Speech Prod knowledge/s ST: Speech Resolve 2019-07-01 Silas kill Prod d 06-20 13:30:00 [place] deficit - 16:00: [id number] pt [address]: Resolve 2019-07-01 Silas deficit Swallowing d 06-20 13:30:00 Zanfordino 16:00: [id number] 00 Swallowing knowledge/s ST: Resolve 2019-07-01 Silas kill Swallowing d 06-20 13:30:00 [place] deficit - 16:00: [id number] pt 00 Social knowledge/s RAMA: Active [facility] kill Social 06-21 [place] deficit - Services 13:00: [id number] pt 00 Social knowledge/s RAMA: Active [facility] kill Social 06-21 [place] deficit - Services 13:00: [id number] cg 00 Respiratory nebulizer Respirator Resolve 2019-08-12 Eufemia treatment y d 06-24 11:55:00 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 14:45: 00 24 Hr Diet knowledge/s NT: 24Hr Resolve 2019-06-24 Mary kill Diet d 06-24 16:15:00 [place] deficit - 16:15: [id number] cg 00 Nutritional swallowing NT: Resolve 2018-092019-08-01 Silas Barrier difficultie Barriers d 0-01 11:00:00 [place] s present 14:45: [id number] 00 Nutritional knowledge/s NT: Resolve 2018-092019-08-01 Silas Barrier kill Barriers d 0-01 11:00:00 [place] deficit - 14:45: [id number] pt 00 Nutritional food NT: Resolve 2018-092019-08-01 Silas Barrier consistency Barriers d 0-01 11:00:00 [place] requirement 14:45: [id number] 00 Speech Prod knowledge/s ST: Speech Resolve 2018-092019-08-01 Eufemia kill Prod d 0-07 11:00:00 Carrier RN deficit - 16:30: pt 00 Neuro anxiety Neuro/Emot Resolve 2018-092019-09-08 Paige present ion d 0-17 12:30:00 Regeczi 16:15: [id number] 00 Respiratory knowledge/s Respirator Resolve 2018-092019-08-12 Eufemia [...] Unknown 2018-09 [facility] deficit 1-12 Graves 15:30: [id number] 00 Neuro depressive Neuro/Emot Resolve 2018-092019-09-08 Lori feelings ion d 1-15 12:30:00 Vallely present 11:55: 00 Activity self-care Activity Resolve 2018-092019-08-12 Lori deficit d 15 11:55:00 Vallely 11:55: 00 Respiratory dyspnea Respirator Active 2018-09 Veronica chavez y 10-18 Sujata 10:50: [id number] 00 Endo/Jono anti-coagul Endo/Jono Resolve 2018-092019-09-08 Veronica augustin d 10-18 12:30:00 Sujata therapy 10:50: [id number] 00 Elimination urinary Eliminatio Active 2018-09 Veronica incontinenc n - Sujata e 10:50: [id number] 00 Elimination UTI within Eliminatio Active 2018-09 Veronica past 14 n 1- Sujata days 10:50: [id number] 00 Elimination constipatio Eliminatio Active 2018-09 Veronica n n - Sujata 10:50: [id number] 00 Elimination diarrhea Eliminatio Active 2018-09 Veronica n - Sujata 10:50: [id number] 00 Respiratory oxygen Respirator Active 2018-09 Veronica treatments y - Sujata in home 11:30: [id number] 00 Cardio pacemaker/I Cardiovasc Active 2018-09 Veronica CD ular 11-03 Sujata 11:48: [id number] 00 Respiratory nebulizer Respirator Active 2018-09 Eufemia treatment y 2-10 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 12:25: 00 Nutrition nutritional Nutrition Active 2018-09 Eufemia restriction 2-18 Carrier RN s 12:15: 00 Respiratory knowledge/s Respirator Resolve 2018-092019-09-16 Eufemia kill y d 2-20 13:20:00 Carrier RN deficit: pt 13:20: 00 Allergies, Adverse Reactions, Alerts Allergy Name Allergy Status Severity Reaction(s) Onset Inactive Treating Comments Type Date Date Clinician cephalexin Base Active Unknown Reaction 2019- [place] Ingredient Unknown 2-14 Luis enoxaparin Base Active Unknown Reaction [place] Ingredient Unknown 2-14 Luis dofetilide Base Active Unknown Reaction 2019 [place] Ingredient Unknown 2-14 Luis latex Base Active Unknown Reaction 2019 [place] Ingredient Unknown 2-14 Luis shellfish Base Active Unknown Reaction 2019- [place] derived Ingredient Unknown 2-14 Luis Medications Ordered Filled Start Stop Current Ordering Indication Dosage Frequency Signature Comments Components Medication Medication Date Date Medication? Clinician (SIG) Name Name aspirin 81 aspirin 81 2019- 2019- No Galyanova Unknown Unknown mg chewable mg chewable 06-03 Genia ALDRIDGE tablet tablet na ondansetron ondansetron 2019- No [place] Unknown Unknown 4 mg 4 mg 06-03 Genia ALDRIDGE disintegrat disintegrat na ing tablet ing tablet rivaroxaban rivaroxaban 2018- No Galyanova Unknown Unknown 15 mg 15 mg 06-03 ,Genia tablet tablet na Lantus Lantus 2018- No [...] s half-unit pen pen metoprolol metoprolol No [place] Unknown Unknown succinate succinate 06-03 Genia ALDRIDGE ER 100 mg ER 100 mg na tablet,exte tablet,exte nded nded release 24 release 24 hr hr montelukast montelukast No Jessica Unknown Unknown 10 mg 10 mg 06-03 ,Genia tablet tablet na Vitamin D3 Vitamin D3 No Galgabrielaova Unknown Unknown 2,000 unit 2,000 unit 06-03 ,Genia tablet tablet na omeprazole omeprazole No Aideeova Unknown Unknown 40 mg 40 mg 06-03 ,Genia capsule,del capsule,del na ayed ayed release release dicyclomine dicyclomine No [place] Unknown Unknown 10 mg 10 mg 06-03 ,Genia capsule capsule na rOPINIRole rOPINIRole 2018- No Galyanova Unknown Unknown 0.25 mg 0.25 mg 06-03 ,Genia tablet tablet na metOLazone metOLazone 2018- No Galyanova Unknown Unknown 2.5 mg 2.5 mg 06-03 ,Genia tablet tablet na Trelegy Trelegy No Galyanova Unknown Unknown Ellipta 100 Ellipta 100 06-03 Genia ALDRIDGE mcg-62.5 mcg-62.5 na mcg-25 mcg mcg-25 mcg powder for powder for inhalation inhalation allopurinol allopurinol 2018- No [place]anova Unknown Unknown 100 mg 100 mg 06-03 10-21 MD,Genia tablet tablet na albuterol albuterol No [place] Unknown Unknown sulfate HFA sulfate HFA 06-03 MD,Genia 90 90 na mcg/actuati mcg/actuati on aerosol on aerosol inhaler inhaler Tradjenta 5 Tradjenta 5 2018- No Galyanova Unknown Unknown mg tablet mg tablet 06-03- MD,Genia na pravastatin pravastatin No [place] Unknown Unknown 80 mg 80 mg 06-03 MD,Genia tablet tablet na polyethylen polyethylen No [place]anova Unknown Unknown e glycol e glycol 06-03 MD,Genia 3350 (bulk) 3350 (bulk) na powder powder [place] 3-6-9 [place] 3-6-9 2018- No Galyanova Unknown Unknown 1,200 [...] 2018- No Galyanova Unknown Unknown 5 5 06-03-25 ,Genia mg-acetamin mg-acetamin na ophen 325 ophen 325 mg tablet mg tablet torsemide torsemide No G[place]anova Unknown Unknown 20 mg 20 mg 06-03 MD,Genia tablet tablet na pregabalin pregabalin 2018- No G[place]anova Unknown Unknown 150 mg 150 mg 06-03- MD,Genia capsule capsule na pregabalin pregabalin 2018- No Galyanova Unknown Unknown 100 mg 100 mg 06-03- MD,Genia capsule capsule na cyclobenzap cyclobenzap 2018- No G[place]anova Unknown Unknown rine 10 mg rine 10 mg 06-03- MD,Genia tablet tablet na Lantus Lantus 2018- No G[place]anova Unknown Unknown Solostar Solostar 06-06 10-14 MD,Genia U-100 U-100 na Insulin 100 Insulin 100 unit/mL (3 unit/mL (3 mL) mL) subcutaneou subcutaneou s pen s pen Aspirin Low Aspirin Low No Galyanova Unknown Unknown Dose 81 mg Dose 81 mg 9- MD,Genia tablet,fela tablet,fela na yed release yed release metOLazone metOLazone 2018- No Galyanova Unknown Unknown 2.5 mg 2.5 mg 9- MD,Genia tablet tablet na Eliquis 5 Eliquis 5 No G[place]anova Unknown Unknown mg tablet mg tablet 06-17 MD,Genia na senna 8.6 senna 8.6 2018- No [place] Unknown Unknown mg tablet mg tablet 06-17 MD,Genia na HYDROcodone HYDROcodone No G[place]anova Unknown Unknown 10 10 - MD,Genia mg-acetamin mg-acetamin na ophen 300 ophen 300 mg tablet mg tablet spironolact spironolact 2018-09 Yes [place] Unknown Unknown one 50 mg one 50 mg 0-04 MD,Genia tablet tablet na rOPINIRole rOPINIRole No [place] Unknown Unknown 0.25 mg 0.25 mg 9- MD,Genia tablet tablet na omega-3s omega-3s 2018-09 Yes Galyanova Unknown Unknown 300 300 0-14 MD,Genia mg-dha-epa- mg-dha-epa- na other other [id number] h oil 1,000 h oil 1,000 mg capsule mg capsule pregabalin pregabalin 2018-09- Yes Galyanova Unknown Unknown 50 mg 50 mg 0-14 10-22 MD,Genia capsule capsule na Lantus Lantus 2018-09- Yes G[place]anova Unknown Unknown Solostar Solostar 0 10- MD,Genia U-100 U-100 na Insulin 100 Insulin [...] Unknown Unknown U-300 U-300 0-31 12-09 Abimael ALDRIDGEoStakira 300 unit/mL 300 unit/mL (3 mL) (3 [...] subcutaneou s pen s pen injector injector Baldev Andrew 2018-09 Yes Law Unknown Unknown U-300 U-300 11-06 Abimael ALDRIDGEoStakira 300 unit/mL 300 unit/mL (3 mL) (3 mL) subcutaneou subcutaneou s insulin s insulin pen pen Vital Signs Vital Name Observation Time Observation Value Comments SYSTOLIC mm[Hg] 2019-09-16 18:09:27 128 mm[Hg] mm[Hg] Method: Sit SYSTOLIC mm[Hg] 2019-06-17 18:07:56 120 mm[Hg] mm[Hg] Method: Stand DIASTOLIC mm[Hg] 2019-09-16 18:09:27 78 mm[Hg] mm[Hg] Method: Sit DIASTOLIC mm[Hg] 2019-06-17 18:07:56 66 mm[Hg] mm[Hg] Method: Stand PULSE 2019-09-23 18:09:34 76 /min /min RESP RATE 2019-09-23 18:09:34 16 /min /min TEMP 2019-09-23 18:09:34 97.8 [degF] Procedures This patient has no known procedures. Results This patient has no known results.
--- OUTSIDE RECORDS SUMMARY | 2019-10-25 16:04 | XMS REPORT ---
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 Eufemia (current) (current) Carrier RN use of use of insulin insulin FDC FDC Diagnosis Active Eufemia (current) (current) Carrier RN use of use of aspirin aspirin Pain frequent Pain Mgmt Active Claudia pain 06-03 [place] 12:15: [id number] 00 Respiratory lung sounds Respirator Resolve 2019-08-12 Claudia deficit y d 06-03 11:55:00 [place] 12:15: [id number] 00 Respiratory dyspnea Respirator Resolve 2019-08-12 Claudia present y d 06-03 11:55:00 [place] 12:15: [id number] 00 Respiratory oxygen Respirator Resolve 2019-08-12 Claudia treatments y d 06-03 11:55:00 [place] in home 12:15: [id number] 00 Endo/Jono insulin Endo/Jono Active Claudia admn 06-03 [place] dependence 12:15: [id number] 00 Endo/Jono glucose Endo/Jono Active Claudia testing 06-03 [place] dependence 12:15: [id number] 00 Endo/Jono knowledge/s Endo/Jono Resolve 2019-08-12 Claudia kill d 06-03 11:55:00 [place] deficit: pt 12:15: [id number] 00 Endo/Jono knowledge/s Endo/Jono Resolve 2019-08-12 Claudia kill d 06-03 11:55:00 [place] deficit: cg 12:15: [id number] 00 Endo/Jono diabetic Endo/Jono Active Claudia foot care 06-03 [place] 12:15: [id number] 00 Sensory impaired Sensory Resolve 2019-09-08 Claudia hearing d 06-03 12:30:00 [place] 12:15: [id number] 00 Nutrition nutritional Nutrition Resolve 2019-09-08 Claudia restriction d 06-03 12:30:00 [place] s 12:15: [id number] 00 Elimination urinary Eliminatio Resolve 2019-07-14 Claudia incontinenc n d 06-03 16:15:00 [place] e 12:15: [id number] 00 Elimination UTI within Eliminatio Resolve 2019-07-14 Claudia past 14 n d 06-03 16:15:00 [place] days 12:15: [id number] 00 Neuro confusion Neuro/Emot Resolve 2019-09-08 Claudia present ion d 06-03 12:30:00 [place] 12:15: [id number] 00 Neuro impaired Neuro/Emot Resolve 2019-09-08 Claudia decision-ma ion d 06-03 12:30:00 [facility] 12:15: [id number] 00 Neuro memory Neuro/Emot Resolve 2019-09-08 Claudia deficit ion d 06-03 12:30:00 [place] needing 12:15: [id number] supervision 00 Activity ADL Activity Resolve 2019-09-08 Claudia assistance d 06-03 12:30:00 [place] required 12:15: [id number] 00 Activity self-care Activity Active Claudia deficit 06-03 [place] 12:15: [id number] 00 Safety structural Safety Active Claudia barriers 06-03 [place] present 12:15: [id number] 00 Safety cannot be Safety Active Claudia left alone 06-03 [place] 12:15: [id number] 00 Safety fall risk Safety Active Claudia factor 06-03 [place] present 12:15: [id number] 00 Safety risk for Safety Active Claudia hospitaliza 06-03 [place] tion 12:15: [id number] 00 Medication oral med Meds Active Claudia assistance 06-03 [place] required 12:15: [id number] 00 Medication injectable Meds Active Claudia med 06-03 [place] assistance 12:15: [id number] required 00 Medication knowledge/s Meds Active Claudia kill 06-03 [place] deficit: pt 12:15: [id number] 00 Medication potential Meds Active Claudia clinically 06-03 [place] significant 12:15: [id number] medication 00 issue Diagnoses knowledge/s Diagnoses Active Claudia kill 06-03 [place] deficit: cg 12:15: [id number] 00 Musculoskel transfer Musculoske Resolve 2019-07-23 Claudia etal assistance letal d 06-03 09:25:00 [place] required 12:15: [id number] 00 Musculoskel requires Musculoske Resolve 2019-07-23 Claudia etal human letal d 06-03 09:25:00 [place] assist to 12:15: [id number] leave home 00 Endo/Jono anti-coagul Endo/Jono Resolve 2019-08-12 Paige augustin d 06-06 11:55:00 Rege[place]zi therapy 11:20: [id number] 00 Elimination constipatio Eliminatio Resolve 2019-07-14 Paige berman n d 06-06 16:15:00 [place] 11:20: [id number] 00 Cardio edema Cardiovasc Resolve 2019-08-12 Veronica guillen d 06-09 11:55:00 [place] 10:30: [id number] 00 Safety can be left Safety Active Veronica alone for 06-09 Sujata only short 10:30: [id number] periods 00 24 Hr Diet nutrition NT: 24Hr Resolve 2019-06-24 Mary intake Diet d 06-10 16:15:00 [place] deficit 15:45: [id number] 00 24 Hr Diet knowledge/s NT: 24Hr Resolve 2019-06-10 Mary kill Diet d 06-10 15:45:00 [place] deficit - 15:45: [id number] pt 00 24 Hr Diet knowledge/s NT: 24Hr Resolve 2019-06-10 Mary kill Diet d 06-10 15:45:00 [place] deficit - 15:45: [id number] cg 00 Nutritional eating NT: Resolve 2019-06-10 Mary Barrier difficultie Barriers d 06-10 15:45:00 [place] s present 15:45: [id number] 00 Nutritional knowledge/s NT: Resolve 2019-06-10 Mary Barrier kill Barriers d 06-10 15:45:00 [place] deficit - 15:45: [id number] pt 00 24 Hr Diet knowledge/s NT: 24Hr Resolve 2019-06-24 Veronica kill Diet d 06-14 16:15:00 [place]jata deficit - 10:40: [id number] pt 00 Nutritional swallowing NT: Resolve 2019-06-24 Silas Barrier difficultie Barriers d 06-20 16:15:00 [place] s present 16:00: [id number] 00 Nutritional knowledge/s NT: Resolve 2019-06-24 Silas Barrier kill Barriers d 06-20 16:15:00 [place] deficit - 16:00: [id number] pt 00 Nutritional food NT: Resolve 2019-06-24 Silas Barrier consistency Barriers d 06-20 16:15:00 [place] requirement 16:00: [id number] [address]: Speech Resolve 2019-07-01 Silas production Prod d 06-20 13:30:00 [place] deficit 16:00: [id number] 00 Speech Prod knowledge/s ST: Speech Resolve 2019-07-01 Silas kill Prod d 06-20 13:30:00 [place] deficit - 16:00: [id number] pt [address]: Resolve 2019-07-01 Silas deficit Swallowing d 06-20 13:30:00 [place] 16:00: [id number] 00 Sw[address]: Resolve 2019-07-01 Silas kill Swallowing d 06-20 13:30:00 [place] deficit - 16:00: [id number] pt 00 Social knowledge/s RAMA: Active [facility] kill Social 06-21 [place] deficit - Services 13:00: [id number] pt 00 Social knowledge/s RAMA: Active [facility] kill Social 24 [place] deficit - Services 13:00: [id number] cg 00 Respiratory nebulizer Respirator Resolve 2019-08-12 Eufemia treatment y d 06-24 11:55:00 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 14:45: 00 24 Hr Diet knowledge/s NT: 24Hr Resolve 2019-06-24 Mary kill Diet d 06-24 16:15:00 [place] deficit - 16:15: [id number] cg 00 Nutritional swallowing NT: Resolve 2018-092019-08-01 Silas Barrier difficultie Barriers d 0-01 11:00:00 [place] present 14:45: [id number] 00 Nutritional knowledge/s NT: Resolve 2018-092019-08-01 Silas Barrier kill Barriers d 0-01 11:00:00 [place] deficit - 14:45: [id number] pt 00 Nutritional food NT: Resolve 2018-092019-08-01 Silas Barrier consistency Barriers d 0-01 11:00:00 [place] requirement 14:45: [id number] 00 Speech Prod knowledge/s ST: Speech Resolve 2018-092019-08-01 Eufemia kill Prod d 0-07 11:00:00 Carrier RN deficit - 16:30: pt 00 Neuro anxiety Neuro/Emot Resolve 2018-092019-09-08 Paige present ion d 0-17 12:30:00 Regeczi 16:15: [id number] 00 Respiratory knowledge/s Respirator Resolve 2018-092019-08-12 Eufemia [...] Unknown 2018-09 [place] deficit 1-12 [place] 15:30: [id number] 00 Neuro depressive Neuro/Emot Resolve 2018-092019-09-08 Lori feelings ion d 1-15 12:30:00 [place] present 11:55: 00 Activity self-care Activity Resolve 2018-092019-08-12 Lori deficit d 15 11:55:00 [place] 11:55: 00 Respiratory dyspnea Respirator Active 2018-09 Veronica chavez y 10-18 Sujata 10:50: [id number] 00 Endo/Jono anti-coagul Endo/Jono Resolve 2018-092019-09-08 Veronica augustin d 10-18 12:30:00 Sujata therapy 10:50: [id number] 00 Elimination urinary Eliminatio Active 2018-09 Veronica incontinenc n - Sujata e 10:50: [id number] 00 Elimination UTI within Eliminatio Active 2018-09 Veronica past 14 n 1-21 Sujata days 10:50: [id number] 00 Elimination constipatio Eliminatio Active 2018-09 Veronica n n - [place] 10:50: [id number] 00 Elimination diarrhea Eliminatio Active 2018-09 Veronica n - [place] 10:50: [id number] 00 Respiratory oxygen Respirator Active 2018-09 Veronica treatments y 1- Sujata in home 11:30: [id number] 00 Cardio pacemaker/I Cardiovasc Active 2018-09 Veronica CD ular 11-03 Sujata 11:48: [id number] 00 Respiratory nebulizer Respirator Active 2018-09 Eufemia [...] pt 16:45: 00 Nutrition nutritional Nutrition Active Eufemia restriction 02 Carrier RN s 15:30: 00 Activity ADL Activity Active Eufemia assistance 09-29 Carrier RN required 15:30: 00 Musculoskel transfer Musculoske Resolve 2019-09-29 Eufemia etal assistance letal d 09-29 15:30:00 Carrier RN required 15:30: 00 [place] requires Musculoske Resolve 2019-09-29 Eufemia etal human letal d 09-29 15:30:00 Carrier RN assist to 15:30: leave home 00 Allergies, Adverse Reactions, Alerts Allergy Name Allergy Status Severity Reaction(s) Onset Inactive Treating Comments Type Date Date Clinician cephalexin Base Active Unknown Reaction [place] Ingredient Unknown 2-14 Luis enoxaparin Base Active Unknown Reaction [place] Ingredient Unknown 2-14 Luis dofetilide Base Active Unknown Reaction [place] Ingredient Unknown 2-14 Luis latex Base Active Unknown Reaction [place] Ingredient Unknown 2-14 Luis shellfish Base Active Unknown Reaction [place] derived Ingredient Unknown 2-14 Luis eggs Unknown [...] na ing tablet ing tablet rivaroxaban rivaroxaban Galyanova Unknown Unknown 15 mg 15 mg 06-03 Genia ALDRIDGE tablet tablet na Lantus Lantus [place] Unknown Unknown Solostar Solostar 06-03 Genia ALDIRDGE U-100 U-100 na Insulin 100 Insulin 100 unit/mL (3 unit/mL (3 mL) mL) subcutaneou subcutaneou s pen s pen HumaLOG HumaLOG No Galyanova Unknown Unknown Pk Pk 06-03 Genia ALDRIDGE KwikPen KwikPen na (U-100) 100 (U-100) 100 unit/mL unit/mL subcutaneou subcutaneou s half-unit s half-unit pen pen metoprolol metoprolol No [place] Unknown Unknown succinate succinate 06-03 Genia ALDRIDGE [...] 3350 (bulk) 3350 (bulk) na powder powder [place] 3-6-9 [place] 3-6-9 2018- No [place] Unknown Unknown 1,200 [...] No [place] Unknown Unknown 5 5 06-03 ,Genia mg-acetamin mg-acetamin na ophen 325 ophen [...] No [place] Unknown Unknown Solostar Solostar 06-06 MDGenia U-100 U-100 na Insulin 100 Insulin 100 unit/mL (3 unit/mL (3 mL) mL) subcutaneou subcutaneou s pen s pen Aspirin Low Aspirin Low No [place] Unknown Unknown Dose 81 mg Dose 81 mg 06-03 MD,Genia tablet,fela tablet,fela na yed release yed release metOLazone metOLazone 2018- No [place] Unknown Unknown 2.5 mg 2.5 mg 06-07 ,Genia tablet tablet na Eliquis 5 Eliquis 5 No [place] Unknown Unknown mg tablet mg tablet 06-17 MD,Genia na senna 8.6 senna 8.6 2018- No [place] Unknown Unknown mg tablet mg tablet 06-17 MD,Genia na HYDROcodone HYDROcodone No [place] Unknown Unknown 10 06-22 ,Genia mg-acetamin mg-acetamin na ophen 300 ophen 300 mg tablet mg tablet spironolact spironolact 2018-09 No [place] Unknown Unknown one 50 mg one 50 mg 0-04 MD,Genia tablet tablet na rOPINIRole rOPINIRole No [place] Unknown Unknown 0.25 mg 0.25 mg 9-06 MD,Genia tablet tablet na omega-3s omega-3s 2018-09 Yes [place] Unknown Unknown 300 300 0-14 MD,Genia mg-dha-epa- mg-dha-epa- na other other [id number] h oil 1,000 h oil 1,000 mg capsule mg capsule pregabalin pregabalin 2018-09 Yes [place] Unknown Unknown [...] tablet tablet na Toujeo Max Toujeo Max 2018-09 2019- Yes Law Unknown Unknown U-300 U-300 0-31 12-09 Abimael ALDRIDGEoStar 300 unit/mL 300 unit/mL (3 mL) (3 mL) subcutaneou subcutaneou s insulin s insulin pen pen Adlyxin 10 Adlyxin 10 2018-09 2019- Yes Law Unknown Unknown mcg/0.2 mcg/0.2 1-18 12-03 Abimael ALDRIDGE mL-20 mL-20 mcg/0.2 mL mcg/0.2 mL subcutaneou subcutaneou s pen s pen injector injector Adlyxin 10 Adlyxin 10 2018-09 Yes Law Unknown Unknown mcg/0.2 mcg/0.2 2-03 Abimael ALDRIDGE mL-20 mL-20 mcg/0.2 mL mcg/0.2 mL subcutaneou subcutaneou s pen s pen injector injector Toulyndseyo Kamran Rodríguezulyndseyo Max 2018-09 Yes Law Unknown Unknown U-300 [...]
--- OUTSIDE RECORDS SUMMARY | 2019-10-25 16:04 | XMS REPORT ---
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 Eufemia (current) (current) Carrier RN use of use of aspirin aspirin Pain frequent Pain Mgmt Active Claudia pain 06-03 [place] 12:15: [id number] 00 Respiratory lung sounds Respirator Resolve 2019-08-12 Claudia deficit y d 06-03 11:55:00 [place] 12:15: [id number] 00 Respiratory dyspnea Respirator Resolve 2019-08-12 Claudia present y d 06-03 11:55:00 [place] 12:15: [id number] 00 Respiratory oxygen Respirator Resolve 2019-08-12 Claudia treatments y d 06-03 11:55:00 [place] in home 12:15: [id number] 00 Endo/Jono insulin Endo/Jono Active Claudia admn 06-03 [place] dependence 12:15: [id number] 00 Endo/Jono glucose Endo/Jono Active Claudia testing 06-03 [place] dependence 12:15: [id number] 00 Endo/Jono knowledge/s Endo/Jono Resolve 2019-08-12 Claudia kill d 06-03 11:55:00 [place] deficit: pt 12:15: [id number] 00 Endo/Jono knowledge/s Endo/Jono Resolve 2019-08-12 Claudia kill d 06-03 11:55:00 [place] deficit: cg 12:15: [id number] 00 Endo/Jono diabetic Endo/Jono Active Claudia foot care 06-03 [place] 12:15: [id number] 00 Sensory impaired Sensory Resolve 2019-09-08 Claudia hearing d 06-03 12:30:00 [place] 12:15: [id number] 00 Nutrition nutritional Nutrition Resolve 2019-09-08 Claudia restriction d 06-03 12:30:00 [place] s 12:15: [id number] 00 Elimination urinary Eliminatio Resolve 2019-07-14 Claudia incontinenc n d 06-03 16:15:00 [place] e 12:15: [id number] 00 Elimination UTI within Eliminatio Resolve 2019-07-14 Claudia past 14 n d 06-03 16:15:00 [place] days 12:15: [id number] 00 Neuro confusion Neuro/Emot Resolve 2019-09-08 Claudia present ion d 06-03 12:30:00 [place] 12:15: [id number] 00 Neuro impaired Neuro/Emot Resolve 2019-09-08 Claudia decision-ma ion d 06-03 12:30:00 [facility] 12:15: [id number] 00 Neuro memory Neuro/Emot Resolve 2019-09-08 Claudia deficit ion d 06-03 12:30:00 [place] needing 12:15: [id number] supervision 00 Activity ADL Activity Resolve 2019-09-08 Claudia assistance d 06-03 12:30:00 [place] required 12:15: [id number] 00 Activity self-care Activity Unknown Claudia deficit 06-03 [place] 12:15: [id number] 00 Safety structural Safety Active Claudia barriers 06-03 [place] present 12:15: [id number] 00 Safety cannot be Safety Active Claudia left alone 06-03 [place] 12:15: [id number] 00 Safety fall risk Safety Active Claudia factor 06-03 [place] present 12:15: [id number] 00 Safety risk for Safety Active Claudia hospitaliza 06-03 [place] tion 12:15: [id number] 00 Medication oral med Meds Active Claudia assistance 06-03 [place] required 12:15: [id number] 00 Medication injectable Meds Active Claudia med 06-03 [place] assistance 12:15: [id number] required 00 Medication knowledge/s Meds Active Claudia kill 06-03 [place] deficit: pt 12:15: [id number] 00 Medication potential Meds Active Claudia clinically 06-03 [place] significant 12:15: [id number] medication 00 issue Diagnoses knowledge/s Diagnoses Active Claudia kill 06-03 [place] deficit: cg 12:15: [id number] 00 Musculoskel transfer Musculoske Resolve 2019-07-23 Claudia etal assistance letal d 06-03 09:25:00 [place] required 12:15: [id number] 00 Musculoskel requires Musculoske Resolve 2019-07-23 Claudia etal human letal d 06-03 09:25:00 [place] assist to 12:15: [id number] leave home 00 Endo/Jono anti-coagul Endo/Jono Resolve 2019-08-12 Paige augustin d 06-06 11:55:00 Regeczi therapy 11:20: [id number] 00 Elimination constipatio Eliminatio Resolve 2019-07-14 Paige berman n d 06-06 16:15:00 [place] 11:20: [id number] 00 Cardio edema Cardiovasc Resolve 2019-08-12 Veronica guillen d 06-09 11:55:00 [place] 10:30: [id number] 00 Safety can be left Safety Active Veronica alone for 06-09 Sujata only short 10:30: [id number] periods 00 24 Hr Diet nutrition NT: 24Hr Resolve 2019-06-24 Mary intake Diet d 06-10 16:15:00 [place] deficit 15:45: [id number] 00 24 Hr Diet knowledge/s NT: 24Hr Resolve 2019-06-10 Mary kill Diet d 06-10 15:45:00 [place] deficit - 15:45: [id number] pt 00 24 Hr Diet knowledge/s NT: 24Hr Resolve 2019-06-10 Mary kill Diet d 06-10 15:45:00 [place] deficit - 15:45: [id number] cg 00 Nutritional eating NT: Resolve 2019-06-10 Mary Barrier difficultie Barriers d 06-10 15:45:00 [place] s present 15:45: [id number] 00 Nutritional knowledge/s NT: Resolve 2019-06-10 Mary Barrier kill Barriers d 06-10 15:45:00 [place] deficit - 15:45: [id number] pt 00 24 Hr Diet knowledge/s NT: 24Hr Resolve 2019-06-24 Veronica kill Diet d 06-14 16:15:00 [place] deficit - 10:40: [id number] pt 00 Nutritional swallowing NT: Resolve 2019-06-24 Silas Barrier difficultie Barriers d 06-20 16:15:00 [place] s present 16:00: [id number] 00 Nutritional knowledge/s NT: Resolve 2019-06-24 Silas Barrier kill Barriers d 06-20 16:15:00 [place] deficit - 16:00: [id number] pt 00 Nutritional food NT: Resolve 2019-06-24 Silas Barrier consistency Barriers d 06-20 16:15:00 [place] requirement 16:00: [id number] [address]: Speech Resolve 2019-07-01 Silas production Prod d 06-20 13:30:00 [place] deficit 16:00: [id number] 00 Speech Prod knowledge/s ST: Speech Resolve 2019-07-01 Silas kill Prod d 06-20 13:30:00 [place] deficit - 16:00: [id number] pt [address]: Resolve 2019-07-01 Silas deficit Swallowing d 06-20 13:30:00 [place] 16:00: [id number] 00 Swallow[address] knowledge/s ST: Resolve 2019-07-01 Silas kill Swallowing d 06-20 13:30:00 [place] deficit - 16:00: [id number] pt 00 Social knowledge/s RAMA: Active [facility] kill Social 06-21 [place] deficit - Services 13:00: [id number] pt 00 Social knowledge/s RAMA: Active [facility] kill Social 24 [place] deficit - Services 13:00: [id number] cg 00 Respiratory nebulizer Respirator Resolve 2019-08-12 Eufemia treatment y d 06-24 11:55:00 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 14:45: 00 24 Hr Diet knowledge/s NT: 24Hr Resolve 2019-06-24 Mary kill Diet d 06-24 16:15:00 [place] deficit - 16:15: [id number] cg 00 Nutritional swallowing NT: Resolve 2018-092019-08-01 Silas Barrier difficultie Barriers d 0-01 11:00:00 [place] s present 14:45: [id number] 00 Nutritional knowledge/s NT: Resolve 2018-092019-08-01 Silas Barrier kill Barriers d 0-01 11:00:00 [place] deficit - 14:45: [id number] pt 00 Nutritional food NT: Resolve 2018-092019-08-01 Silas Barrier consistency Barriers d 0-01 11:00:00 [place] requirement 14:45: [id number] 00 Speech Prod knowledge/s ST: Speech Resolve 2018-092019-08-01 Eufemia kill Prod d 0-07 11:00:00 Carrier RN deficit - 16:30: pt 00 Neuro anxiety Neuro/Emot Resolve 2018-092019-09-08 Paige present ion d 0-17 12:30:00 [place] 16:15: [id number] 00 Respiratory knowledge/s Respirator Resolve 2018-092019-08-12 Eufemia [...] Unknown 2018-09 [place] deficit 1-12 [place] 15:30: [id number] 00 Neuro depressive Neuro/Emot Resolve 2018-092019-09-08 Lori feelings ion d 1-15 12:30:00 [place] present 11:55: 00 Activity self-care Activity Resolve 2018-092019-08-12 Lori deficit d 15 11:55:00 [place] 11:55: 00 Respiratory dyspnea Respirator Active 2018-09 Veronica chavez y 10-18 [place] 10:50: [id number] 00 Endo/Jono anti-coagul Endo/Jono Resolve 2018-092019-09-08 Veronica augustin d 10-18 12:30:00 [place] therapy 10:50: [id number] 00 Elimination urinary Eliminatio Active 2018-09 Veronica incontinenc n - Suj[place] e 10:50: [id number] 00 Elimination UTI within Eliminatio Active 2018-09 Veronica past 14 n 1-21 Sujata days 10:50: [id number] 00 Elimination constipatio Eliminatio Active 2018-09 Veronica n n - [place] 10:50: [id number] 00 Elimination diarrhea Eliminatio Active 2018-09 Veronica n - [place] 10:50: [id number] 00 Respiratory oxygen Respirator Active 2018-09 Veronica treatments y 1- Sujata in home 11:30: [id number] 00 Cardio pacemaker/I Cardiovasc Active 2018-09 Veronica CD ular 2- Suj[place] 11:48: [id number] 00 Respiratory nebulizer Respirator Active 2018-09 Eufemia [...] 2018-09 [place]ie restriction 2- [place] s 10:45: [id number] 00 Activity ADL Activity Active Eufemia assistance [...] Date Clinician cephalexin Base Active Unknown Reaction [place] Ingredient Unknown 2-14 [place] enoxaparin Base Active Unknown Reaction [place] Ingredient Unknown 2-14 Luis dofetilide Base Active Unknown Reaction [place] Ingredient Unknown 2-14 Luis latex Base Active Unknown Reaction [place] Ingredient Unknown 214 Luis shellfish Base Active Unknown Reaction [place] derived Ingredient Unknown -14 Luis eggs Unknown [...] 3350 (bulk) 3350 (bulk) na powder powder [place] 3-6-9 [place] 3-6-9 2018- No Galyanova Unknown Unknown 1,200 [...] 0-14 MD,Genia mg-dha-epa- mg-dha-epa- na other other [id number] h oil 1,000 h oil 1,000 mg [...]
--- OUTSIDE RECORDS SUMMARY | 2019-10-25 16:04 | XMS REPORT ---
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 RN use of use of insulin insulin long-term long-term Diagnosis Active Eufemia (current) (current) Carrier RN use of use of aspirin aspirin Pain frequent Pain Mgmt Active Claudia pain 06-03 [place] 12:15: [id number] 00 Respiratory lung sounds Respirator Resolve 2019-08-12 Claudia deficit y d 06-03 11:55:00 [place] 12:15: [id number] 00 Respiratory dyspnea Respirator Resolve 2019-08-12 Claudia present y d 06-03 11:55:00 [place] 12:15: [id number] 00 Respiratory oxygen Respirator Resolve 2019-08-12 Claudia treatments y d 06-03 11:55:00 [place] in home 12:15: [id number] 00 Endo/Jono insulin Endo/Jono Active Claudia admn 06-03 [place] dependence 12:15: [id number] 00 Endo/Jono glucose Endo/Jono Active Claudia testing 06-03 [place] dependence 12:15: [id number] 00 Endo/Jono knowledge/s Endo/Jono Resolve 2019-08-12 Claudia kill d 06-03 11:55:00 [place] deficit: pt 12:15: [id number] 00 Endo/Jono knowledge/s Endo/Jono Resolve 2019-08-12 Claudia kill d 06-03 11:55:00 [place] deficit: cg 12:15: [id number] 00 Endo/Jono diabetic Endo/Jono Active Claudia foot care 06-03 [place] 12:15: [id number] 00 Sensory impaired Sensory Resolve 2019-09-08 Claudia hearing d 06-03 12:30:00 [place] 12:15: [id number] 00 Nutrition nutritional Nutrition Resolve 2019-09-08 Claudia restriction d 06-03 12:30:00 [place] s 12:15: [id number] 00 Elimination urinary Eliminatio Resolve 2019-07-14 Claudia incontinenc n d 06-03 16:15:00 [place] e 12:15: [id number] 00 Elimination UTI within Eliminatio Resolve 2019-07-14 Claudia past 14 n d 06-03 16:15:00 [place] days 12:15: [id number] 00 Neuro confusion Neuro/Emot Resolve 2019-09-08 Claudia present ion d 06-03 12:30:00 [place] 12:15: [id number] 00 Neuro impaired Neuro/Emot Resolve 2019-09-08 Claudia decision-ma ion d 06-03 12:30:00 [facility] 12:15: [id number] 00 Neuro memory Neuro/Emot Resolve 2019-09-08 Claudia deficit ion d 06-03 12:30:00 [place] needing 12:15: [id number] supervision 00 Activity ADL Activity Resolve 2019-09-08 Claudia assistance d 06-03 12:30:00 [place] required 12:15: [id number] 00 Activity self-care Activity Resolve 2019-06-28 Claudia deficit d 06-03 16:15:00 [place] 12:15: [id number] 00 Safety structural Safety Active Claudia barriers 06-03 [place] present 12:15: [id number] 00 Safety cannot be Safety Active Claudia left alone 06-03 [place] 12:15: [id number] 00 Safety fall risk Safety Active Claudia factor 06-03 [place] present 12:15: [id number] 00 Safety risk for Safety Active Claudia hospitaliza 06-03 [place] tion 12:15: [id number] 00 Medication oral med Meds Active Claudia assistance 06-03 [place] required 12:15: [id number] 00 Medication injectable Meds Active Claudia med 06-03 [place] assistance 12:15: [id number] required 00 Medication knowledge/s Meds Active Claudia kill 06-03 [place] deficit: pt 12:15: [id number] 00 Medication potential Meds Active Claudia clinically 06-03 [place] significant 12:15: [id number] medication 00 issue Diagnoses knowledge/s Diagnoses Active Claudia kill 06-03 [place] deficit: cg 12:15: [id number] 00 Musculoskel transfer Musculoske Resolve 2019-07-23 Claudia etal assistance letal d 06-03 09:25:00 [place] required 12:15: [id number] 00 Musculoskel requires Musculoske Resolve 2019-07-23 Claudia etal human letal d 06-03 09:25:00 [place] assist to 12:15: [id number] leave home 00 Endo/Jono anti-coagul Endo/Jono Resolve 2019-08-12 Paige augustin d 06-06 11:55:00 [place] therapy 11:20: [id number] 00 Elimination constipatio Eliminatio Resolve 2019-07-14 Paige berman n d 06-06 16:15:00 [place] 11:20: [id number] 00 Cardio edema Cardiovasc Resolve 2019-08-12 Veronica guillen d 06-09 11:55:00 [place] 10:30: [id number] 00 Safety can be left Safety Active Veronica alone for 06-09 Sujata only short 10:30: [id number] periods 00 24 Hr Diet nutrition NT: 24Hr Resolve 2019-06-24 Mary intake Diet d 06-10 16:15:00 [place] deficit 15:45: [id number] 00 24 Hr Diet knowledge/s NT: 24Hr Resolve 2019-06-10 Mary kill Diet d 06-10 15:45:00 [place] deficit - 15:45: [id number] pt 00 24 Hr Diet knowledge/s NT: 24Hr Resolve 2019-06-10 Mary kill Diet d 06-10 15:45:00 [place] deficit - 15:45: [id number] cg 00 Nutritional eating NT: Resolve 2019-06-10 Mary Barrier difficultie Barriers d 06-10 15:45:00 [place] s present 15:45: [id number] 00 Nutritional knowledge/s NT: Resolve 2019-06-10 Mary Barrier kill Barriers d 06-10 15:45:00 [place] deficit - 15:45: [id number] pt 00 24 Hr Diet knowledge/s NT: 24Hr Resolve 2019-06-24 Veronica kill Diet d 06-14 16:15:00 [place] deficit - 10:40: [id number] pt 00 Nutritional swallowing NT: Resolve 2019-06-24 Silas Barrier difficultie Barriers d 06-20 16:15:00 [place] s present 16:00: [id number] 00 Nutritional knowledge/s NT: Resolve 2019-06-24 Silas Barrier kill Barriers d 06-20 16:15:00 [place] deficit - 16:00: [id number] pt 00 Nutritional food NT: Resolve 2019-06-24 Silas Barrier consistency Barriers d 06-20 16:15:00 [place] requirement 16:00: [id number] [address]: Speech Resolve 2019-07-01 Silas production Prod d 06-20 13:30:00 [place] deficit 16:00: [id number] 00 Speech Prod knowledge/s ST: Speech Resolve 2019-07-01 Silas kill Prod d 06-20 13:30:00 [place] deficit - 16:00: [id number] pt [address]: Resolve 2019-07-01 Silas deficit Swallowing d 06-20 13:30:00 [place] 16:00: [id number] [address]: Resolve 2019-07-01 Silas kill Swallowing d 06-20 13:30:00 [place] deficit - 16:00: [id number] pt 00 Social knowledge/s RAMA: Active [facility] kill Social 06-21 [place] deficit - Services 13:00: [id number] pt 00 Social knowledge/s RAMA: Active [facility] kill Social 06-21 [place] deficit - Services 13:00: [id number] cg 00 Respiratory nebulizer Respirator Resolve 2019-08-12 Eufemia treatment y d 06-24 11:55:00 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 14:45: 00 24 Hr Diet knowledge/s NT: 24Hr Resolve 2019-06-24 Mary kill Diet d 06-24 16:15:00 [place] deficit - 16:15: [id number] cg 00 Nutritional swallowing NT: Resolve 2018-092019-08-01 Silas Barrier difficultie Barriers d 0-01 11:00:00 [place] present 14:45: [id number] 00 Nutritional knowledge/s NT: Resolve 2018-092019-08-01 Silas Barrier kill Barriers d 0-01 11:00:00 [place] deficit - 14:45: [id number] pt 00 Nutritional food NT: Resolve 2018-092019-08-01 Silas Barrier consistency Barriers d 0-01 11:00:00 [place] requirement 14:45: [id number] 00 Speech Prod knowledge/s ST: Speech Resolve 2018-092019-08-01 Eufemia kill Prod d 0-07 11:00:00 Carrier RN deficit - 16:30: pt 00 Neuro anxiety Neuro/Emot Resolve 2018-092019-09-08 Paige present ion d 0-17 12:30:00 Rege[place] 16:15: [id number] 00 Respiratory knowledge/s Respirator Resolve 2018-092019-08-12 Eufemia [...] Unknown 2018-09 [place] deficit 1-12 [place] 15:30: [id number] 00 Neuro depressive Neuro/Emot Resolve 2018-092019-09-08 Lori feelings ion d 1-15 12:30:00 [place] present 11:55: 00 Activity self-care Activity Resolve 2018-092019-08-12 Lori deficit d 15 11:55:00 [place] 11:55: 00 Respiratory dyspnea Respirator Active 2018-09 Veronica chavez y 10-18 [place] 10:50: [id number] 00 Endo/Jono anti-coagul Endo/Jono Resolve 2018-092019-09-08 Veronica augustin d 10-18 12:30:00 [place] therapy 10:50: [id number] 00 Elimination urinary Eliminatio Active 2018-09 Veronica incontinenc n - [place] e 10:50: [id number] 00 Elimination UTI within Eliminatio Active 2018-09 Veronica past 14 n - [place] days 10:50: [id number] 00 Elimination constipatio Eliminatio Active 2018-09 Veronica n n - [place] 10:50: [id number] 00 Elimination diarrhea Eliminatio Active 2018-09 Veronica n - [place] 10:50: [id number] 00 Respiratory oxygen Respirator Active 2018-09 Veronica treatments y 10-26 [place] in home 11:30: [id number] 00 Cardio pacemaker/I Cardiovasc Active 2018-09 Veronica CD ular 11-03 [place] 11:48: [id number] 00 Respiratory nebulizer Respirator Active 2018-09 Eufemia treatment y 2-10 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 12:25: 00 Nutrition nutritional Nutrition Resolve 2018-092019-09-23 Eufemia restriction d 2-18 16:45:00 Carrier RN s 12:15: 00 Respiratory knowledge/s Respirator Active 2018-09 Eufemia kill y 2-20 Carrier RN deficit: pt 13:20: 00 Cardio hypertensio Cardiovasc Active 2018-09 Eufemia n ular 11-24 Carrier RN 16:45: 00 Respiratory knowledge/s Respirator Resolve 2018-092019-09-23 Eufemia kill y d 2- 16:45:00 Carrier RN deficit: pt 16:45: 00 Allergies, Adverse Reactions, Alerts Allergy Name Allergy Status Severity Reaction(s) Onset Inactive Treating Comments Type Date Date Clinician cephalexin Base Active Unknown Reaction 2019- Soldier Ingredient Unknown 2-14 Luis enoxaparin Base Active Unknown Reaction Soldier Ingredient Unknown 2-14 Luis dofetilide Base Active Unknown Reaction 2019 Soldier Ingredient Unknown 2-14 Luis latex Base Active Unknown Reaction 2019- Soldier Ingredient Unknown 2-14 Luis shellfish Base Active Unknown Reaction 2019 Soldier derived Ingredient Unknown 2-14 Luis Medications Ordered [...] Unknown Unknown 15 mg 15 mg 06-03 MDGenia tablet tablet na Lantus Lantus 2018- No Galyanova Unknown Unknown Solostar Solostar 06-03 Genia ALDRIDGE U-100 U-100 na Insulin 100 Insulin 100 unit/mL (3 unit/mL (3 mL) mL) subcutaneou subcutaneou s pen s pen HumaLOG HumaLOG No Galyanova Unknown Unknown Pk Pk 06-03 Genia ALDRIDEG KwikPen KwikPen na (U-100) 100 (U-100) 100 unit/mL unit/mL subcutaneou subcutaneou s half-unit s half-unit pen pen metoprolol metoprolol No Jessica Unknown Unknown succinate succinate 06-03 Genia ALDRIDGE ER 100 mg ER 100 mg na tablet,exte tablet,exte nded nded release 24 release 24 hr hr montelukast montelukast No Galyanova Unknown Unknown 10 mg 10 mg 06-03 MDGenia tablet tablet na Vitamin D3 Vitamin D3 No Galgabrielaova Unknown Unknown 2,000 unit 2,000 unit 06-03 Ju[place] ALDRIDGEGenia tablet tablet na omeprazole omeprazole No Galyanova Unknown Unknown 40 mg 40 mg 06-03 Genia ALDRIDGE capsule,del capsule,del na ayed ayed release release dicyclomine dicyclomine No [place]anova Unknown Unknown 10 mg 10 mg 06-03 ,Genia capsule capsule na rOPINIRole rOPINIRole 2018- No Galyanova Unknown Unknown 0.25 mg 0.25 mg 06-03 ,Genia tablet tablet na metOLazone metOLazone 2018- No Aideeova Unknown Unknown 2.5 mg 2.5 mg 06-03 [...] Unknown mg tablet mg tablet 06-03 10- ,Genia na pravastatin pravastatin No Galyanova Unknown Unknown 80 mg 80 mg 06-03 MD,Genia tablet tablet na polyethylen polyethylen No Galyanova Unknown Unknown e glycol e glycol 06-03 ,Genia 3350 (bulk) 3350 (bulk) na powder powder [place] 3-6-9 [place] 3-6-9 2018- No Galyanova Unknown Unknown 1,200 mg 1,200 mg 06-03 10-17 MD,Genia capsule capsule na olopatadine olopatadine No [...] Unknown Unknown 150 mg 150 mg 06-03 10-14 MD,Genia capsule capsule na pregabalin pregabalin 2018- [...] tablet 06-17 10- MD,Genia na HYDROcodone HYDROcodone No Galyanova Unknown Unknown 10 10 9-25 MD,Genia mg-acetamin mg-acetamin na ophen 300 ophen 300 mg tablet mg tablet spironolact spironolact 2018-09 Yes Galyanova Unknown Unknown one 50 mg one 50 mg 0-04 MD,Genia tablet tablet na rOPINIRole rOPINIRole No [place]anova Unknown Unknown 0.25 mg 0.25 mg 9- MD,Genia tablet tablet na omega-3s omega-3s 2018-09 Yes Galyanova Unknown Unknown 300 300 0-14 MD,Genia mg-dha-epa- mg-dha-epa- na other other [id number] h oil 1,000 h oil 1,000 mg capsule mg capsule pregabalin pregabalin 2018-09- Yes Galyanova Unknown Unknown 50 mg 50 mg 0-14 10- MD,Genia capsule capsule na Lantus Lantus 2018-09- [...] Unknown Unknown U-300 U-300 2-09 Abimael ALDRIDGE SoloStakira SoloStar 300 unit/mL 300 unit/mL (3 mL) (3 mL) subcutaneou subcutaneou s insulin s insulin pen pen Vital Signs Vital Name Observation Time Observation Value Comments SYSTOLIC mm[Hg] 2019-09-26 18:09:37 128 mm[Hg] mm[Hg] Method: Sit SYSTOLIC mm[Hg] 2019-06-17 18:07:56 120 mm[Hg] mm[Hg] Method: Stand DIASTOLIC mm[Hg] 2019-09-26 18:09:37 78 mm[Hg] mm[Hg] Method: Sit DIASTOLIC mm[Hg] 2019-06-17 18:07:56 66 mm[Hg] mm[Hg] Method: Stand PULSE 2019-09-23 18:09:34 76 /min /min RESP RATE 2019-09-23 18:09:34 16 /min /min TEMP 2019-09-23 18:09:34 97.8 [degF] Procedures This patient has no known procedures. Results This patient has no known results.
--- OUTSIDE RECORDS SUMMARY | 2019-10-25 16:04 | XMS REPORT ---
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 Eufemia (current) (current) Carrier RN use of use of anticoagula anticoagula nts nts FPC FPC Diagnosis Active Eufemia (current) (current) Carrier RN use of use of insulin insulin FPC FPC Diagnosis Active Eufemia (current) (current) Carrier RN use of use of aspirin aspirin Pain frequent Pain Mgmt Active Claudia pain 06-03 [place] 12:15: [id number] 00 Respiratory lung sounds Respirator Resolve 2019-08-12 Claudia deficit y d 06-03 11:55:00 [place] 12:15: [id number] 00 Respiratory dyspnea Respirator Resolve 2019-08-12 Claudia present y d 06-03 11:55:00 [place] 12:15: [id number] 00 Respiratory oxygen Respirator Resolve 2019-08-12 Claudia treatments y d 06-03 11:55:00 [place] in home 12:15: [id number] 00 Endo/Jono insulin Endo/Jono Active Claudia admn 06-03 [place] dependence 12:15: [id number] 00 Endo/Jono glucose Endo/Jono Active Claudia testing 06-03 [place] dependence 12:15: [id number] 00 Endo/Jono knowledge/s Endo/Jono Resolve 2019-08-12 Claudia kill d 06-03 11:55:00 [place] deficit: pt 12:15: [id number] 00 Endo/Jono knowledge/s Endo/Jono Resolve 2019-08-12 Claudia kill d 06-03 11:55:00 [place] deficit: cg 12:15: [id number] 00 Endo/Jono diabetic Endo/Jono Active Claudia foot care 06-03 [place] 12:15: [id number] 00 Sensory impaired Sensory Resolve 2019-09-08 Claudia hearing d 06-03 12:30:00 [place] 12:15: [id number] 00 Nutrition nutritional Nutrition Resolve 2019-09-08 Claudia restriction d 06-03 12:30:00 [place] s 12:15: [id number] 00 Elimination urinary Eliminatio Resolve 2019-07-14 Claudia incontinenc n d 06-03 16:15:00 [place] e 12:15: [id number] 00 Elimination UTI within Eliminatio Resolve 2019-07-14 Claudia past 14 n d 06-03 16:15:00 [place] days 12:15: [id number] 00 Neuro confusion Neuro/Emot Resolve 2019-09-08 Claudia present ion d 06-03 12:30:00 [place] 12:15: [id number] 00 Neuro impaired Neuro/Emot Resolve 2019-09-08 Claudia decision-ma ion d 06-03 12:30:00 [facility] 12:15: [id number] 00 Neuro memory Neuro/Emot Resolve 2019-09-08 Claudia deficit ion d 06-03 12:30:00 [place] needing 12:15: [id number] supervision 00 Activity ADL Activity Resolve 2019-09-08 Claudia assistance d 06-03 12:30:00 [place] required 12:15: [id number] 00 Activity self-care Activity Resolve 2019-06-28 Claudia deficit d 06-03 16:15:00 [place] 12:15: [id number] 00 Safety structural Safety Active Claudia barriers 06-03 [place] present 12:15: [id number] 00 Safety cannot be Safety Active Claudia left alone 06-03 [place] 12:15: [id number] 00 Safety fall risk Safety Active Claudia factor 06-03 [place] present 12:15: [id number] 00 Safety risk for Safety Active Claudia hospitaliza 06-03 [place] tion 12:15: [id number] 00 Medication oral med Meds Active Claudia assistance 06-03 [place] required 12:15: [id number] 00 Medication injectable Meds Active Claudia med 06-03 [place] assistance 12:15: [id number] required 00 Medication knowledge/s Meds Active Claudia kill 06-03 [place] deficit: pt 12:15: [id number] 00 Medication potential Meds Active Claudia clinically 06-03 [place] significant 12:15: [id number] medication 00 issue Diagnoses knowledge/s Diagnoses Active Claudia kill 06-03 [place] deficit: cg 12:15: [id number] 00 Musculoskel transfer Musculoske Resolve 2019-07-23 Claudia etal assistance letal d 06-03 09:25:00 [place] required 12:15: [id number] 00 Musculoskel requires Musculoske Resolve 2019-07-23 Claudia etal human letal d 06-03 09:25:00 [place] assist to 12:15: [id number] leave home 00 Endo/Jono anti-coagul Endo/Jono Resolve 2019-08-12 Paige augustin d 06-06 11:55:00 Regeczi therapy 11:20: [id number] 00 Elimination constipatio Eliminatio Resolve 2019-07-14 Paige berman n d 06-06 16:15:00 [place] 11:20: [id number] 00 Cardio edema Cardiovasc Resolve 2019-08-12 Veronica guillen d 06-09 11:55:00 [place] 10:30: [id number] 00 Safety can be left Safety Active Veronica alone for 06-09 Sujata only short 10:30: [id number] periods 00 24 Hr Diet nutrition NT: 24Hr Resolve 2019-06-24 Mary intake Diet d 06-10 16:15:00 [place] deficit 15:45: [id number] 00 24 Hr Diet knowledge/s NT: 24Hr Resolve 2019-06-10 Mary kill Diet d 06-10 15:45:00 [place] deficit - 15:45: [id number] pt 00 24 Hr Diet knowledge/s NT: 24Hr Resolve 2019-06-10 Mary kill Diet d 06-10 15:45:00 [place] deficit - 15:45: [id number] cg 00 Nutritional eating NT: Resolve 2019-06-10 Mary Barrier difficultie Barriers d 06-10 15:45:00 [place] s present 15:45: [id number] 00 Nutritional knowledge/s NT: Resolve 2019-06-10 Mary Barrier kill Barriers d 06-10 15:45:00 [place] deficit - 15:45: [id number] pt 00 24 Hr Diet knowledge/s NT: 24Hr Resolve 2019-06-24 Veronica kill Diet d 06-14 16:15:00 [place] deficit - 10:40: [id number] pt 00 Nutritional swallowing NT: Resolve 2019-06-24 Silas Barrier difficultie Barriers d 06-20 16:15:00 [place] s present 16:00: [id number] 00 Nutritional knowledge/s NT: Resolve 2019-06-24 Silas Barrier kill Barriers d 06-20 16:15:00 [place] deficit - 16:00: [id number] pt 00 Nutritional food NT: Resolve 2019-06-24 Silas Barrier consistency Barriers d 06-20 16:15:00 [place] requirement 16:00: [id number] [address]: Speech Resolve 2019-07-01 Silas production Prod d 06-20 13:30:00 [place] deficit 16:00: [id number] 00 Speech Prod knowledge/s ST: Speech Resolve 2019-07-01 Silas kill Prod d 06-20 13:30:00 [place] deficit - 16:00: [id number] pt [address]: Resolve 2019-07-01 Silas deficit Swallowing d 06-20 13:30:00 [place] 16:00: [id number] 00 Swallowing knowledge/s ST: Resolve 2019-07-01 Silas kill Swallowing d 06-20 13:30:00 [place] deficit - 16:00: [id number] pt 00 Social knowledge/s RAMA: Active [facility] kill Social 06-21 [place] deficit - Services 13:00: [id number] pt 00 Social knowledge/s RAMA: Active [facility] kill Social 06-21 [place] deficit - Services 13:00: [id number] cg 00 Respiratory nebulizer Respirator Resolve 2019-08-12 Eufemia treatment y d 06-24 11:55:00 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 14:45: 00 24 Hr Diet knowledge/s NT: 24Hr Resolve 2019-06-24 Mary kill Diet d 06-24 16:15:00 [place] deficit - 16:15: [id number] cg 00 Nutritional swallowing NT: Resolve 2018-092019-08-01 Silas Barrier difficultie Barriers d 0-01 11:00:00 [place] s present 14:45: [id number] 00 Nutritional knowledge/s NT: Resolve 2018-092019-08-01 Silas Barrier kill Barriers d 0-01 11:00:00 [place] deficit - 14:45: [id number] pt 00 Nutritional food NT: Resolve 2018-092019-08-01 Silas Barrier consistency Barriers d 0-01 11:00:00 [place] requirement 14:45: [id number] 00 Speech Prod knowledge/s ST: Speech Resolve 2018-092019-08-01 Eufemia kill Prod d 0-07 11:00:00 Carrier RN deficit - 16:30: pt 00 Neuro anxiety Neuro/Emot Resolve 2018-092019-09-08 Paige present ion d 0-17 12:30:00 Regeczi 16:15: [id number] 00 Respiratory knowledge/s Respirator Resolve 2018-092019-08-12 Eufemia [...] Unknown 2018-09 [place] deficit 1-12 [place] 15:30: [id number] 00 Neuro depressive Neuro/Emot Resolve 2018-092019-09-08 Lori feelings ion d 1-15 12:30:00 [place] present 11:55: 00 Activity self-care Activity Resolve 2018-092019-08-12 Lori deficit d 15 11:55:00 [place] 11:55: 00 Respiratory dyspnea Respirator Active 2018-09 Veronica chavez y 10-18 [place] 10:50: [id number] 00 Endo/Jono anti-coagul Endo/Jono Resolve 2018-092019-09-08 Veronica augustin d 10-18 12:30:00 [place] therapy 10:50: [id number] 00 Elimination urinary Eliminatio Active 2018-09 Veronica incontinenc n - Suj[place] e 10:50: [id number] 00 Elimination UTI within Eliminatio Active 2018-09 Veronica past 14 n 1- Sujata days 10:50: [id number] 00 Elimination constipatio Eliminatio Active 2018-09 Veronica n n - [place] 10:50: [id number] 00 Elimination diarrhea Eliminatio Active 2018-09 Veronica n - [place] 10:50: [id number] 00 Respiratory oxygen Respirator Active 2018-09 Veronica treatments y - [place] in home 11:30: [id number] 00 Cardio pacemaker/I Cardiovasc Active 2018-09 Veronica CD ular 11-03 [place] 11:48: [id number] 00 Respiratory nebulizer Respirator Active 2018-09 Eufemia [...] Clinician cephalexin Base Active Unknown Reaction 2019- [place] Ingredient Unknown 2-14 Luis enoxaparin Base Active Unknown Reaction [place] Ingredient Unknown 2-14 Luis dofetilide Base Active Unknown Reaction 2019 [place] Ingredient Unknown 2-14 Luis latex Base Active Unknown Reaction 2019 [place] Ingredient Unknown 2-14 Luis shellfish Base Active Unknown Reaction 2019- [place] derived Ingredient Unknown 2-14 Luis Medications Ordered [...] 3350 (bulk) 3350 (bulk) na powder powder [place] 3-6-9 [place] 3-6-9 2018- No Galyanova Unknown Unknown 1,200 [...] 0-14 MD,Genia mg-dha-epa- mg-dha-epa- na other other [id number] h oil 1,000 h oil 1,000 mg [...]
--- OUTSIDE RECORDS SUMMARY | 2019-10-25 16:04 | XMS REPORT ---
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 Eufemia (current) (current) Carrier RN use of use of insulin insulin retirement retirement Diagnosis Active Eufemia (current) (current) Carrier RN use of use of aspirin aspirin Pain frequent Pain Mgmt Active Claudia pain 06-03 [place] 12:15: [id number] 00 Respiratory lung sounds Respirator Resolve 2019-08-12 Claudia deficit y d 06-03 11:55:00 [place] 12:15: [id number] 00 Respiratory dyspnea Respirator Resolve 2019-08-12 Claudia present y d 06-03 11:55:00 [place] 12:15: [id number] 00 Respiratory oxygen Respirator Resolve 2019-08-12 Claudia treatments y d 06-03 11:55:00 [place] in home 12:15: [id number] 00 Endo/Jono insulin Endo/Jono Active Claudia admn 06-03 [place] dependence 12:15: [id number] 00 Endo/Jono glucose Endo/Jono Active Claudia testing 06-03 [place] dependence 12:15: [id number] 00 Endo/Jono knowledge/s Endo/Jono Resolve 2019-08-12 Claudia kill d 06-03 11:55:00 [place] deficit: pt 12:15: [id number] 00 Endo/Jono knowledge/s Endo/Jono Resolve 2019-08-12 Claudia kill d 06-03 11:55:00 [place] deficit: cg 12:15: [id number] 00 Endo/Jono diabetic Endo/Jono Active Claudia foot care 06-03 [place] 12:15: [id number] 00 Sensory impaired Sensory Resolve 2019-09-08 Claudia hearing d 06-03 12:30:00 [place] 12:15: [id number] 00 Nutrition nutritional Nutrition Resolve 2019-09-08 Claudia restriction d 06-03 12:30:00 [place] s 12:15: [id number] 00 Elimination urinary Eliminatio Resolve 2019-07-14 Claudia incontinenc n d 06-03 16:15:00 [place] e 12:15: [id number] 00 Elimination UTI within Eliminatio Resolve 2019-07-14 Claudia past 14 n d 06-03 16:15:00 [place] days 12:15: [id number] 00 Neuro confusion Neuro/Emot Resolve 2019-09-08 Claudia present ion d 06-03 12:30:00 [place] 12:15: [id number] 00 Neuro impaired Neuro/Emot Resolve 2019-09-08 Claudia decision-ma ion d 06-03 12:30:[address] [facility] 12:15: [id number] 00 Neuro memory Neuro/Emot Resolve 2019-09-08 Claudia deficit ion d 06-03 12:30:00 [place] needing 12:15: [id number] supervision 00 Activity ADL Activity Resolve 2019-09-08 Claudia assistance d 06-03 12:30:00 [place] required 12:15: [id number] 00 Activity self-care Activity Active Claudia deficit 06-03 [place] 12:15: [id number] 00 Safety structural Safety Active Claudia barriers 06-03 [place] present 12:15: [id number] 00 Safety cannot be Safety Active Claudia left alone 06-03 [place] 12:15: [id number] 00 Safety fall risk Safety Active Claudia factor 06-03 [place] present 12:15: [id number] 00 Safety risk for Safety Active Claudia hospitaliza 06-03 [place] tion 12:15: [id number] 00 Medication oral med Meds Active Claudia assistance 06-03 [place] required 12:15: [id number] 00 Medication injectable Meds Active Claudia med 06-03 [place] assistance 12:15: [id number] required 00 Medication knowledge/s Meds Active Claudia kill 06-03 [place] deficit: pt 12:15: [id number] 00 Medication potential Meds Active Claudia clinically 06-03 [place] significant 12:15: [id number] medication 00 issue Diagnoses knowledge/s Diagnoses Active Claudia kill 06-03 [place] deficit: cg 12:15: [id number] 00 Musculoskel transfer Musculoske Resolve 2019-07-23 Claudia etal assistance letal d 06-03 09:25:00 [place] required 12:15: [id number] 00 Musculoskel requires Musculoske Resolve 2019-07-23 Claudia etal human letal d 06-03 09:25:00 [place] assist to 12:15: [id number] leave home 00 Endo/Jono anti-coagul Endo/Jono Resolve 2019-08-12 Paige augustin d 06-06 11:55:00 [place] therapy 11:20: [id number] 00 Elimination constipatio Eliminatio Resolve 2019-07-14 Paige berman n d 06-06 16:15:00 [place] 11:20: [id number] 00 Cardio edema Cardiovasc Resolve 2019-08-12 Veronica guillen d 06-09 11:55:00 [place] 10:30: [id number] 00 Safety can be left Safety Active Veronica alone for 06-09 [place] only short 10:30: [id number] periods 00 24 Hr Diet nutrition NT: 24Hr Resolve 2019-06-24 Mary intake Diet d 06-10 16:15:00 [place] deficit 15:45: [id number] 00 24 Hr Diet knowledge/s NT: 24Hr Resolve 2019-06-10 Mary kill Diet d 06-10 15:45:00 [place] deficit - 15:45: [id number] pt 00 24 Hr Diet knowledge/s NT: 24Hr Resolve 2019-06-10 Mary kill Diet d 06-10 15:45:00 [place] deficit - 15:45: [id number] cg 00 Nutritional eating NT: Resolve 2019-06-10 Mary Barrier difficultie Barriers d 06-10 15:45:00 [place] s present 15:45: [id number] 00 Nutritional knowledge/s NT: Resolve 2019-06-10 Mary Barrier kill Barriers d 06-10 15:45:00 [place] deficit - 15:45: [id number] pt 00 24 Hr Diet knowledge/s NT: 24Hr Resolve 2019-06-24 Veronica kill Diet d 06-14 16:15:00 [place] deficit - 10:40: [id number] pt 00 Nutritional swallowing NT: Resolve 2019-06-24 Silas Barrier difficultie Barriers d 06-20 16:15:00 [place] present 16:00: [id number] 00 Nutritional knowledge/s NT: Resolve 2019-06-24 Silas Barrier kill Barriers d 06-20 16:15:00 [place] deficit - 16:00: [id number] pt 00 Nutritional food NT: Resolve 2019-06-24 Silas Barrier consistency Barriers d 06-20 16:15:00 [place] requirement 16:00: [id number] [address]: Speech Resolve 2019-07-01 Silas production Prod d 06-20 13:30:00 [place] deficit 16:00: [id number] 00 Speech Prod knowledge/s ST: Speech Resolve 2019-07-01 Silas kill Prod d 06-20 13:30:00 [place] deficit - 16:00: [id number] pt [address]: Resolve 2019-07-01 Silas deficit Swallowing d 06-20 13:30:00 [place] 16:00: [id number] 00 [address]: Resolve 2019-07-01 Silas kill Swallowing d 06-20 13:30:00 [place] deficit - 16:00: [id number] pt 00 Social knowledge/s RAMA: Active [facility] kill Social 06-21 [place] deficit - Services 13:00: [id number] pt 00 Social knowledge/s RAMA: Active [facility] kill Social 24 [place] deficit - Services 13:00: [id number] cg 00 Respiratory nebulizer Respirator Resolve 2019-08-12 Eufemia treatment y d 06-24 11:55:00 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 14:45: 00 24 Hr Diet knowledge/s NT: 24Hr Resolve 2019-06-24 Mary kill Diet d 06-24 16:15:00 [place] deficit - 16:15: [id number] cg 00 Nutritional swallowing NT: Resolve 2018-092019-08-01 Silas Barrier difficultie Barriers d 0-01 11:00:00 [place] present 14:45: [id number] 00 Nutritional knowledge/s NT: Resolve 2018-092019-08-01 Silas Barrier kill Barriers d 0-01 11:00:00 [place] deficit - 14:45: [id number] pt 00 Nutritional food NT: Resolve 2018-092019-08-01 Silas Barrier consistency Barriers d 0-01 11:00:00 [place] requirement 14:45: [id number] 00 Speech Prod knowledge/s ST: Speech Resolve 2018-092019-08-01 Eufemia kill Prod d 0-07 11:00:00 Carrier RN deficit - 16:30: pt 00 Neuro anxiety Neuro/Emot Resolve 2018-092019-09-08 Paige present ion d 0-17 12:30:00 [place] 16:15: [id number] 00 Respiratory knowledge/s Respirator Resolve 2018-092019-08-12 Eufemia [...] Unknown 2018-09 [place] deficit 1-12 [place] 15:30: [id number] 00 Neuro depressive Neuro/Emot Resolve 2018-092019-09-08 Lori feelings ion d 1-15 12:30:00 [place] present 11:55: 00 Activity self-care Activity Resolve 2018-092019-08-12 Lori deficit d 15 11:55:00 [place] 11:55: 00 Respiratory dyspnea Respirator Active 2018-09 Veronica chavez y 10-18 [place] 10:50: [id number] 00 Endo/Jono anti-coagul Endo/Jono Resolve 2018-092019-09-08 Veronica augustin d 10-18 12:30:00 [place] therapy 10:50: [id number] 00 Elimination urinary Eliminatio Active 2018-09 Veronica incontinenc n - [place] e 10:50: [id number] 00 Elimination UTI within Eliminatio Active 2018-09 Veronica past 14 n 1-21 Suj[place] days 10:50: [id number] 00 Elimination constipatio Eliminatio Active 2018-09 Veronica n n - [place] 10:50: [id number] 00 Elimination diarrhea Eliminatio Active 2018-09 Veronica n - [place] 10:50: [id number] 00 Respiratory oxygen Respirator Active 2018-09 Veronica treatments y 1- [place] in home 11:30: [id number] 00 Cardio pacemaker/I Cardiovasc Active 2018-09 Veronica CD ular 11-03 [place] 11:48: [id number] 00 Respiratory nebulizer Respirator Active 2018-09 Eufemia [...] 16:45: 00 Respiratory knowledge/s Respirator Active 2018-09 Eufmeia kill y 2-27 Carrier RN deficit: pt [...] Date Clinician cephalexin Base Active Unknown Reaction [place] Ingredient Unknown 2-14 Luis enoxaparin Base Active Unknown Reaction [place] Ingredient Unknown 2-14 Luis dofetilide Base Active Unknown Reaction [place] Ingredient Unknown 2-14 Luis latex Base Active Unknown Reaction [place] Ingredient Unknown 2-14 Luis shellfish Base Active Unknown Reaction [place] derived Ingredient Unknown 2-14 Luis eggs Unknown [...] 3350 (bulk) 3350 (bulk) na powder powder [place] 3-6-9 [place] 3-6-9 2018- No Galyanova Unknown Unknown 1,200 [...] 0-14 MD,Genia mg-dha-epa- mg-dha-epa- na other other [id number] h oil 1,000 h oil 1,000 mg [...]
--- OUTSIDE RECORDS SUMMARY | 2019-10-25 16:04 | XMS REPORT ---
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 RN use of use of aspirin aspirin Pain frequent Pain Mgmt Active Claudia pain 06-03 [place] 12:15: [id number] 00 Respiratory lung sounds Respirator Resolve 2019-08-12 Claudia deficit y d 06-03 11:55:00 [place] 12:15: [id number] 00 Respiratory dyspnea Respirator Resolve 2019-08-12 Claudia present y d 06-03 11:55:00 [place] 12:15: [id number] 00 Respiratory oxygen Respirator Resolve 2019-08-12 Claudia treatments y d 06-03 11:55:00 [place] in home 12:15: [id number] 00 Endo/Jono insulin Endo/Jono Active Claudia admn 06-03 [place] dependence 12:15: [id number] 00 Endo/Jono glucose Endo/Jono Active Claudia testing 06-03 [place] dependence 12:15: [id number] 00 Endo/Jono knowledge/s Endo/Jono Resolve 2019-08-12 Claudia kill d 06-03 11:55:00 [place] deficit: pt 12:15: [id number] 00 Endo/Jono knowledge/s Endo/Jono Resolve 2019-08-12 Claudia kill d 06-03 11:55:00 [place] deficit: cg 12:15: [id number] 00 Endo/Jono diabetic Endo/Jono Active Claudia foot care 06-03 [place] 12:15: [id number] 00 Sensory impaired Sensory Resolve 2019-09-08 Claudia hearing d 06-03 12:30:00 [place] 12:15: [id number] 00 Nutrition nutritional Nutrition Resolve 2019-09-08 Claudia restriction d 06-03 12:30:00 [place] s 12:15: [id number] 00 Elimination urinary Eliminatio Resolve 2019-07-14 Claudia incontinenc n d 06-03 16:15:00 [place] e 12:15: [id number] 00 Elimination UTI within Eliminatio Resolve 2019-07-14 Claudia past 14 n d 06-03 16:15:00 [place] days 12:15: [id number] 00 Neuro confusion Neuro/Emot Resolve 2019-09-08 Claudia present ion d 06-03 12:30:00 [place] 12:15: [id number] 00 Neuro impaired Neuro/Emot Resolve 2019-09-08 Claudia decision-ma ion d 06-03 12:30:00 [facility] 12:15: [id number] 00 Neuro memory Neuro/Emot Resolve 2019-09-08 Claudia deficit ion d 06-03 12:30:00 [place] needing 12:15: [id number] supervision 00 Activity ADL Activity Resolve 2019-09-08 Claudia assistance d 06-03 12:30:00 [place] required 12:15: [id number] 00 Activity self-care Activity Unknown Claudia deficit 06-03 [place] 12:15: [id number] 00 Safety structural Safety Active Claudia barriers 06-03 [place] present 12:15: [id number] 00 Safety cannot be Safety Active Claudia left alone 06-03 [place] 12:15: [id number] 00 Safety fall risk Safety Active Claudia factor 06-03 [place] present 12:15: [id number] 00 Safety risk for Safety Active Claudia hospitaliza 06-03 [place] tion 12:15: [id number] 00 Medication oral med Meds Active Claudia assistance 06-03 [place] required 12:15: [id number] 00 Medication injectable Meds Active Claudia med 06-03 [place] assistance 12:15: [id number] required 00 Medication knowledge/s Meds Active Claudia kill 06-03 [place] deficit: pt 12:15: [id number] 00 Medication potential Meds Active Claudia clinically 06-03 [place] significant 12:15: [id number] medication 00 issue Diagnoses knowledge/s Diagnoses Active Claudia kill 06-03 [place] deficit: cg 12:15: [id number] 00 Musculoskel transfer Musculoske Resolve 2019-07-23 Claudia etal assistance letal d 06-03 09:25:00 [place] required 12:15: [id number] 00 Musculoskel requires Musculoske Resolve 2019-07-23 Claudia etal human letal d 06-03 09:25:00 [place] assist to 12:15: [id number] leave home 00 Endo/Jono anti-coagul Endo/Jono Resolve 2019-08-12 Paige augustin d 06-06 11:55:00 [place] therapy 11:20: [id number] 00 Elimination constipatio Eliminatio Resolve 2019-07-14 Paige berman n d 06-06 16:15:00 [place] 11:20: [id number] 00 Cardio edema Cardiovasc Resolve 2019-08-12 Veronica guillen d 06-09 11:55:00 [place] 10:30: [id number] 00 Safety can be left Safety Active Veronica alone for 06-09 [place] only short 10:30: [id number] periods 00 24 Hr Diet nutrition NT: 24Hr Resolve 2019-06-24 Mary intake Diet d 06-10 16:15:00 [place] deficit 15:45: [id number] 00 24 Hr Diet knowledge/s NT: 24Hr Resolve 2019-06-10 Mary kill Diet d 06-10 15:45:00 [place] deficit - 15:45: [id number] pt 00 24 Hr Diet knowledge/s NT: 24Hr Resolve 2019-06-10 Mary kill Diet d 06-10 15:45:00 [place] deficit - 15:45: [id number] cg 00 Nutritional eating NT: Resolve 2019-06-10 Mary Barrier difficultie Barriers d 06-10 15:45:00 [place] s present 15:45: [id number] 00 Nutritional knowledge/s NT: Resolve 2019-06-10 Mary Barrier kill Barriers d 06-10 15:45:00 [place] deficit - 15:45: [id number] pt 00 24 Hr Diet knowledge/s NT: 24Hr Resolve 2019-06-24 Veronica kill Diet d 06-14 16:15:00 [place] deficit - 10:40: [id number] pt 00 Nutritional swallowing NT: Resolve 2019-06-24 Silas Barrier difficultie Barriers d 06-20 16:15:00 [place] present 16:00: [id number] 00 Nutritional knowledge/s NT: Resolve 2019-06-24 Silas Barrier kill Barriers d 06-20 16:15:00 [place] deficit - 16:00: [id number] pt 00 Nutritional food NT: Resolve 2019-06-24 Silas Barrier consistency Barriers d 06-20 16:15:00 [place] requirement 16:00: [id number] [address]: Speech Resolve 2019-07-01 Silas production Prod d 06-20 13:30:00 [place] deficit 16:00: [id number] 00 Speech Prod knowledge/s ST: Speech Resolve 2019-07-01 Silas kill Prod d 06-20 13:30:00 [place] deficit - 16:00: [id number] pt [address]: Resolve 2019-07-01 Silas deficit Swallowing d 06-20 13:30:00 [place] 16:00: [id number] 00 Sw[address]: Resolve 2019-07-01 Silas kill Swallowing d 06-20 13:30:00 [place] deficit - 16:00: [id number] pt 00 Social knowledge/s RAMA: Active [facility] kill Social 06-21 [place] deficit - Services 13:00: [id number] pt 00 Social knowledge/s RAMA: Active [facility] kill Social 24 [place] deficit - Services 13:00: [id number] cg 00 Respiratory nebulizer Respirator Resolve 2019-08-12 Eufemia treatment y d 06-24 11:55:00 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 14:45: 00 24 Hr Diet knowledge/s NT: 24Hr Resolve 2019-06-24 Mary kill Diet d 06-24 16:15:00 [place] deficit - 16:15: [id number] cg 00 Nutritional swallowing NT: Resolve 2018-092019-08-01 Silas Barrier difficultie Barriers d 0-01 11:00:00 [place] s present 14:45: [id number] 00 Nutritional knowledge/s NT: Resolve 2018-092019-08-01 Silas Barrier kill Barriers d 0-01 11:00:00 [place] deficit - 14:45: [id number] pt 00 Nutritional food NT: Resolve 2018-092019-08-01 Silas Barrier consistency Barriers d 0-01 11:00:00 [place] requirement 14:45: [id number] 00 Speech Prod knowledge/s ST: Speech Resolve 2018-092019-08-01 Eufemia kill Prod d 0-07 11:00:00 Carrier RN deficit - 16:30: pt 00 Neuro anxiety Neuro/Emot Resolve 2018-092019-09-08 Paige present ion d 0-17 12:30:00 [place] 16:15: [id number] 00 Respiratory knowledge/s Respirator Resolve 2018-092019-08-12 Eufemia [...] Unknown 2018-09 [place] deficit 1-12 [place] 15:30: [id number] 00 Neuro depressive Neuro/Emot Resolve 2018-092019-09-08 Lori feelings ion d 1-15 12:30:00 [place] present 11:55: 00 Activity self-care Activity Resolve 2018-092019-08-12 Lori deficit d 15 11:55:00 [place] 11:55: 00 Respiratory dyspnea Respirator Active 2018-09 Veronica chavez y 10-18 [place] 10:50: [id number] 00 Endo/Jono anti-coagul Endo/Jono Resolve 2018-092019-09-08 Veronica augustin d 10-18 12:30:00 [place] therapy 10:50: [id number] 00 Elimination urinary Eliminatio Active 2018-09 Veronica incontinenc n - [place] e 10:50: [id number] 00 Elimination UTI within Eliminatio Active 2018-09 Veronica past 14 n 1-21 [place] days 10:50: [id number] 00 Elimination constipatio Eliminatio Active 2018-09 Veronica n n - [place] 10:50: [id number] 00 Elimination diarrhea Eliminatio Active 2018-09 Veronica n - [place] 10:50: [id number] 00 Respiratory oxygen Respirator Active 2018-09 Veronica treatments y 1- [place] in home 11:30: [id number] 00 Cardio pacemaker/I Cardiovasc Active 2018-09 Veronica CD ular 2- [place] 11:48: [id number] 00 Respiratory nebulizer Respirator Active 2018-09 Eufemia [...] 2018-09 [place] restriction 2- [place] s 10:45: [id number] 00 Activity ADL Activity Active Eufemia assistance [...] Date Clinician cephalexin Base Active Unknown Reaction [place] Ingredient Unknown 2-14 Luis enoxaparin Base Active Unknown Reaction [place] Ingredient Unknown 2-14 Luis dofetilide Base Active Unknown Reaction [place] Ingredient Unknown 2-14 Luis latex Base Active Unknown Reaction [place] Ingredient Unknown 214 Luis shellfish Base Active Unknown Reaction [place] derived Ingredient Unknown -14 Luis eggs Unknown [...] No Jessica Unknown Unknown Pk Pk 06-03 eGnia ALDRIDGE KwikPen KwikPen na (U-100) 100 (U-100) [...] 3350 (bulk) 3350 (bulk) na powder powder [place] 3-6-9 [place] 3-6-9 2018- No Galyanova Unknown Unknown 1,200 [...] 0-14 MD,Genia mg-dha-epa- mg-dha-epa- na other other [id number] h oil 1,000 h oil 1,000 mg [...]
--- OUTSIDE RECORDS SUMMARY | 2019-10-25 16:04 | XMS REPORT ---
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 Eufemia (current) (current) Carrier RN use of use of anticoagula anticoagula nts nts detention detention Diagnosis Active Eufemia (current) (current) Carrier RN use of use of insulin insulin detention detention Diagnosis Active Eufemia (current) (current) Carrier RN use of use of aspirin aspirin Pain frequent Pain Mgmt Active Claudia pain 06-03 [place] 12:15: [id number] 00 Respiratory lung sounds Respirator Resolve 2019-08-12 Claudia deficit y d 06-03 11:55:00 [place] 12:15: [id number] 00 Respiratory dyspnea Respirator Resolve 2019-08-12 Claudia present y d 06-03 11:55:00 [place] 12:15: [id number] 00 Respiratory oxygen Respirator Resolve 2019-08-12 Claudia treatments y d 06-03 11:55:00 [place] in home 12:15: [id number] 00 Endo/Jono insulin Endo/Jono Active Claudia admn 06-03 [place] dependence 12:15: [id number] 00 Endo/Jono glucose Endo/Jono Active Claudia testing 06-03 [place] dependence 12:15: [id number] 00 Endo/Jono knowledge/s Endo/Jono Resolve 2019-08-12 Claudia kill d 06-03 11:55:00 [place] deficit: pt 12:15: [id number] 00 Endo/Jono knowledge/s Endo/Jono Resolve 2019-08-12 Claudia kill d 06-03 11:55:00 [place] deficit: cg 12:15: [id number] 00 Endo/Jono diabetic Endo/Jono Active Claudia foot care 06-03 [place] 12:15: [id number] 00 Sensory impaired Sensory Resolve 2019-09-08 Claudia hearing d 06-03 12:30:00 [place] 12:15: [id number] 00 Nutrition nutritional Nutrition Resolve 2019-09-08 Claudia restriction d 06-03 12:30:00 [place] 12:15: [id number] 00 Elimination urinary Eliminatio Resolve 2019-07-14 Claudia incontinenc n d 06-03 16:15:00 [place] e 12:15: [id number] 00 Elimination UTI within Eliminatio Resolve 2019-07-14 Claudia past 14 n d 06-03 16:15:00 [place] days 12:15: [id number] 00 Neuro confusion Neuro/Emot Resolve 2019-09-08 Claudia present ion d 06-03 12:30:00 [place] 12:15: [id number] 00 Neuro impaired Neuro/Emot Resolve 2019-09-08 Claudia decision-ma ion d 06-03 12:30:00 [facility] 12:15: [id number] 00 Neuro memory Neuro/Emot Resolve 2019-09-08 Claudia deficit ion d 06-03 12:30:00 [place] needing 12:15: [id number] supervision 00 Activity ADL Activity Resolve 2019-09-08 Claudia assistance d 06-03 12:30:00 [place] required 12:15: [id number] 00 Activity self-care Activity Resolve 2019-06-28 Claudia deficit d 06-03 16:15:00 [place] 12:15: [id number] 00 Safety structural Safety Active Claudia barriers 06-03 [place] present 12:15: [id number] 00 Safety cannot be Safety Active Claudia left alone 06-03 [place] 12:15: [id number] 00 Safety fall risk Safety Active Claudia factor 06-03 [place] present 12:15: [id number] 00 Safety risk for Safety Active Claudia hospitaliza 06-03 [place] tion 12:15: [id number] 00 Medication oral med Meds Active Claudia assistance 06-03 [place] required 12:15: [id number] 00 Medication injectable Meds Active Claudia med 06-03 [place] assistance 12:15: [id number] required 00 Medication knowledge/s Meds Active Claudia kill 06-03 [place] deficit: pt 12:15: [id number] 00 Medication potential Meds Active Claudia clinically 06-03 [place] significant 12:15: [id number] medication 00 issue Diagnoses knowledge/s Diagnoses Active Claudia kill 06-03 [place] deficit: cg 12:15: [id number] 00 Musculoskel transfer Musculoske Resolve 2019-07-23 Claudia etal assistance letal d 06-03 09:25:00 [place] required 12:15: [id number] 00 Musculoskel requires Musculoske Resolve 2019-07-23 Claudia etal human letal d 06-03 09:25:00 [place] assist to 12:15: [id number] leave home 00 Endo/Jono anti-coagul Endo/Jono Resolve 2019-08-12 Paige augustin d 06-06 11:55:00 [place] therapy 11:20: [id number] 00 Elimination constipatio Eliminatio Resolve 2019-07-14 Paige berman n d 06-06 16:15:00 [place] 11:20: [id number] 00 Cardio edema Cardiovasc Resolve 2019-08-12 Veronica guillen d 06-09 11:55:00 [place] 10:30: [id number] 00 Safety can be left Safety Active Veronica alone for 06-09 [place] only short 10:30: [id number] periods 00 24 Hr Diet nutrition NT: 24Hr Resolve 2019-06-24 Mary intake Diet d 06-10 16:15:00 [place] deficit 15:45: [id number] 00 24 Hr Diet knowledge/s NT: 24Hr Resolve 2019-06-10 Mary kill Diet d 06-10 15:45:00 [place] deficit - 15:45: [id number] pt 00 24 Hr Diet knowledge/s NT: 24Hr Resolve 2019-06-10 Mary kill Diet d 06-10 15:45:00 [place] deficit - 15:45: [id number] cg 00 Nutritional eating NT: Resolve 2019-06-10 Mary Barrier difficultie Barriers d 06-10 15:45:00 [place] s present 15:45: [id number] 00 Nutritional knowledge/s NT: Resolve 2019-06-10 Mary Barrier kill Barriers d 06-10 15:45:00 [place] deficit - 15:45: [id number] pt 00 24 Hr Diet knowledge/s NT: 24Hr Resolve 2019-06-24 Veronica kill Diet d 06-14 16:15:00 [place] deficit - 10:40: [id number] pt 00 Nutritional swallowing NT: Resolve 2019-06-24 Silas Barrier difficultie Barriers d 06-20 16:15:00 [place] present 16:00: [id number] 00 Nutritional knowledge/s NT: Resolve 2019-06-24 Silas Barrier kill Barriers d 06-20 16:15:00 [place] deficit - 16:00: [id number] pt 00 Nutritional food NT: Resolve 2019-06-24 Silas Barrier consistency Barriers d 06-20 16:15:00 [place] requirement 16:00: [id number] [address]: Speech Resolve 2019-07-01 Silas production Prod d 06-20 13:30:00 [place] deficit 16:00: [id number] 00 Speech Prod knowledge/s ST: Speech Resolve 2019-07-01 Silas kill Prod d 06-20 13:30:00 [place] deficit - 16:00: [id number] pt [address]: Resolve 2019-07-01 Silas deficit Swallowing d 06-20 13:30:00 [place] 16:00: [id number] [address] ST: Resolve 2019-07-01 Silas kill Swallowing d 06-20 13:30:00 [place] deficit - 16:00: [id number] pt 00 Social knowledge/s RAMA: Active [facility] kill Social 06-21 [place] deficit - Services 13:00: [id number] pt 00 Social knowledge/s RAMA: Active [facility] kill Social 06-21 [place] deficit - Services 13:00: [id number] cg 00 Respiratory nebulizer Respirator Resolve 2019-08-12 Eufemia treatment y d 06-24 11:55:00 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 14:45: 00 24 Hr Diet knowledge/s NT: 24Hr Resolve 2019-06-24 Mary kill Diet d 06-24 16:15:00 [place] deficit - 16:15: [id number] cg 00 Nutritional swallowing NT: Resolve 2018-092019-08-01 Silas Barrier difficultie Barriers d 0-01 11:00:00 [place] present 14:45: [id number] 00 Nutritional knowledge/s NT: Resolve 2018-092019-08-01 Silas Barrier kill Barriers d 0-01 11:00:00 [place] deficit - 14:45: [id number] pt 00 Nutritional food NT: Resolve 2018-092019-08-01 Silas Barrier consistency Barriers d 0-01 11:00:00 [place] requirement 14:45: [id number] 00 Speech Prod knowledge/s ST: Speech Resolve 2018-092019-08-01 Eufemia kill Prod d 0-07 11:00:00 Carrier RN deficit - 16:30: pt 00 Neuro anxiety Neuro/Emot Resolve 2018-092019-09-08 Paige present ion d 0-17 12:30:00 [place] 16:15: [id number] 00 Respiratory knowledge/s Respirator Resolve 2018-092019-08-12 Eufemia [...] Unknown 2018-09 [place] deficit 1-12 [place] 15:30: [id number] 00 Neuro depressive Neuro/Emot Resolve 2018-092019-09-08 Lori feelings ion d 1-15 12:30:00 [place] present 11:55: 00 Activity self-care Activity Resolve 2018-092019-08-12 Lori deficit d 15 11:55:00 [place] 11:55: 00 Respiratory dyspnea Respirator Active 2018-09 Veronica chavez y 10-18 [place] 10:50: [id number] 00 Endo/Jono anti-coagul Endo/Jono Resolve 2018-092019-09-08 Veronica augustin d 10-18 12:30:00 [place] therapy 10:50: [id number] 00 Elimination urinary Eliminatio Active 2018-09 Veronica incontinenc n - [place] e 10:50: [id number] 00 Elimination UTI within Eliminatio Active 2018-09 Veronica past 14 n - [place] days 10:50: [id number] 00 Elimination constipatio Eliminatio Active 2018-09 Veronica n n - [place] 10:50: [id number] 00 Elimination diarrhea Eliminatio Active 2018-09 Veronica n - [place] 10:50: [id number] 00 Respiratory oxygen Respirator Active 2018-09 Veronica treatments y - [place] in home 11:30: [id number] 00 Cardio pacemaker/I Cardiovasc Active 2018-09 Veronica CD ular 11-03 [place] 11:48: [id number] 00 Respiratory nebulizer Respirator Active 2018-09 Eufemia treatment y 2-10 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 12:25: 00 Nutrition nutritional Nutrition Active 2018-09 Eufemia restriction 2-18 Carrier RN s 12:15: 00 Allergies, Adverse Reactions, Alerts Allergy Name Allergy Status Severity Reaction(s) Onset Inactive Treating Comments Type Date Date Clinician cephalexin Base Active Unknown Reaction [place] Ingredient Unknown 2-14 Luis enoxaparin Base Active Unknown Reaction [place] Ingredient Unknown 2-14 Luis dofetilide Base Active Unknown Reaction [place] Ingredient Unknown 2-14 Luis latex Base Active Unknown Reaction [place] Ingredient Unknown 2-14 Luis shellfish Base Active Unknown Reaction [place] derived Ingredient Unknown 2-14 Luis Medications Ordered [...] 3350 (bulk) 3350 (bulk) na powder powder [place] 3-6-9 [place] 3-6-9 2018- No Galyanova Unknown Unknown 1,200 [...] 0-14 MD,Genia mg-dha-epa- mg-dha-epa- na other other [id number] h oil 1,000 h oil 1,000 mg [...] ER 600 mg ER 600 mg 0-14 MD,Genai tablet, tablet, na extended extended release 12 [...]
--- OUTSIDE RECORDS SUMMARY | 2019-10-25 16:04 | XMS REPORT ---
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 Eufemia (current) (current) Carrier RN use of use of insulin insulin [facility] Diagnosis Active Eufemia (current) (current) Carrier RN use of use of aspirin aspirin Pain frequent Pain Mgmt Active Claudia pain 06-03 [place] 12:15: [id number] 00 Respiratory lung sounds Respirator Resolve 2019-08-12 Claudia deficit y d 06-03 11:55:00 [place] 12:15: [id number] 00 Respiratory dyspnea Respirator Resolve 2019-08-12 Claudia present y d 06-03 11:55:00 [place] 12:15: [id number] 00 Respiratory oxygen Respirator Resolve 2019-08-12 Claudia treatments y d 06-03 11:55:00 [place] in home 12:15: [id number] 00 Endo/Jono insulin Endo/Jono Active Claudia admn 06-03 [place] dependence 12:15: [id number] 00 Endo/Jono glucose Endo/Jono Active Claudia testing 06-03 [place] dependence 12:15: [id number] 00 Endo/Jono knowledge/s Endo/Jono Resolve 2019-08-12 Claudia kill d 06-03 11:55:00 [place] deficit: pt 12:15: [id number] 00 Endo/Jono knowledge/s Endo/Jono Resolve 2019-08-12 Claudia kill d 06-03 11:55:00 [place] deficit: cg 12:15: [id number] 00 Endo/Jono diabetic Endo/Jono Active Claudia foot care 06-03 [place] 12:15: [id number] 00 Sensory impaired Sensory Resolve 2019-09-08 Claudia hearing d 06-03 12:30:00 [place] 12:15: [id number] 00 Nutrition nutritional Nutrition Resolve 2019-09-08 Claudia restriction d 06-03 12:30:00 [place] s 12:15: [id number] 00 Elimination urinary Eliminatio Resolve 2019-07-14 Claudia incontinenc n d 06-03 16:15:00 [place] e 12:15: [id number] 00 Elimination UTI within Eliminatio Resolve 2019-07-14 Claudia past 14 n d 06-03 16:15:00 [place] days 12:15: [id number] 00 Neuro confusion Neuro/Emot Resolve 2019-09-08 Claudia present ion d 06-03 12:30:00 [place] 12:15: [id number] 00 Neuro impaired Neuro/Emot Resolve 2019-09-08 Claudia decision-ma ion d 06-03 12:30:00 [facility] 12:15: [id number] 00 Neuro memory Neuro/Emot Resolve 2019-09-08 Claudia deficit ion d 06-03 12:30:00 [place] needing 12:15: [id number] supervision 00 Activity ADL Activity Resolve 2019-09-08 Claudia assistance d 06-03 12:30:00 [place] required 12:15: [id number] 00 Activity self-care Activity Unknown Claudia deficit 06-03 [place] 12:15: [id number] 00 Safety structural Safety Active Claudia barriers 06-03 [place] present 12:15: [id number] 00 Safety cannot be Safety Active Claudia left alone 06-03 [place] 12:15: [id number] 00 Safety fall risk Safety Active Claudia factor 06-03 [place] present 12:15: [id number] 00 Safety risk for Safety Active Claudia hospitaliza 06-03 [place] tion 12:15: [id number] 00 Medication oral med Meds Active Claudia assistance 06-03 [place] required 12:15: [id number] 00 Medication injectable Meds Active Lcaudia med 06-03 [place] assistance 12:15: [id number] required 00 Medication knowledge/s Meds Active Claudia kill 06-03 [place] deficit: pt 12:15: [id number] 00 Medication potential Meds Active Claudia clinically 06-03 [place] significant 12:15: [id number] medication 00 issue Diagnoses knowledge/s Diagnoses Active Claudia kill 06-03 [place] deficit: cg 12:15: [id number] 00 Musculoskel transfer Musculoske Resolve 2019-07-23 Claudia etal assistance letal d 06-03 09:25:00 [place] required 12:15: [id number] 00 Musculoskel requires Musculoske Resolve 2019-07-23 Claudia etal human letal d 06-03 09:25:00 [place] assist to 12:15: [id number] leave home 00 Endo/Jono anti-coagul Endo/Jono Resolve 2019-08-12 Paige augustin d 06-06 11:55:00 [place] therapy 11:20: [id number] 00 Elimination constipatio Eliminatio Resolve 2019-07-14 Paige berman n d 06-06 16:15:00 [place] 11:20: [id number] 00 Cardio edema Cardiovasc Resolve 2019-08-12 Veronica guillen d 06-09 11:55:00 [place] 10:30: [id number] 00 Safety can be left Safety Active Veronica alone for 06-09 [place] only short 10:30: [id number] periods 00 24 Hr Diet nutrition NT: 24Hr Resolve 2019-06-24 Mary intake Diet d 06-10 16:15:00 [place] deficit 15:45: [id number] 00 24 Hr Diet knowledge/s NT: 24Hr Resolve 2019-06-10 Mary kill Diet d 06-10 15:45:00 [place] deficit - 15:45: [id number] pt 00 24 Hr Diet knowledge/s NT: 24Hr Resolve 2019-06-10 Mary kill Diet d 06-10 15:45:00 [place] deficit - 15:45: [id number] cg 00 Nutritional eating NT: Resolve 2019-06-10 Mary Barrier difficultie Barriers d 06-10 15:45:00 [place] s present 15:45: [id number] 00 Nutritional knowledge/s NT: Resolve 2019-06-10 Mary Barrier kill Barriers d 06-10 15:45:00 [place] deficit - 15:45: [id number] pt 00 24 Hr Diet knowledge/s NT: 24Hr Resolve 2019-06-24 Veronica kill Diet d 06-14 16:15:00 [place] deficit - 10:40: [id number] pt 00 Nutritional swallowing NT: Resolve 2019-06-24 Silas Barrier difficultie Barriers d 06-20 16:15:00 [place] present 16:00: [id number] 00 Nutritional knowledge/s NT: Resolve 2019-06-24 Silas Barrier kill Barriers d 06-20 16:15:00 [place] deficit - 16:00: [id number] pt 00 Nutritional food NT: Resolve 2019-06-24 Silas Barrier consistency Barriers d 06-20 16:15:00 [place] requirement 16:00: [id number] [address]: Speech Resolve 2019-07-01 Silas production Prod d 06-20 13:30:00 [place] deficit 16:00: [id number] 00 Speech Prod knowledge/s ST: Speech Resolve 2019-07-01 Silas kill Prod d 06-20 13:30:00 [place] deficit - 16:00: [id number] pt [address]: Resolve 2019-07-01 Silas deficit Swallowing d 06-20 13:30:00 [place] 16:00: [id number] 00 Sw[address]: Resolve 2019-07-01 Silas kill Swallowing d 06-20 13:30:00 [place] deficit - 16:00: [id number] pt 00 Social knowledge/s RAMA: Active [facility] kill Social 06-21 [place] deficit - Services 13:00: [id number] pt 00 Social knowledge/s RAMA: Active [facility] kill Social 24 [place] deficit - Services 13:00: [id number] cg 00 Respiratory nebulizer Respirator Resolve 2019-08-12 Eufemia treatment y d 06-24 11:55:00 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 14:45: 00 24 Hr Diet knowledge/s NT: 24Hr Resolve 2019-06-24 Amry kill Diet d 06-24 16:15:00 [place] deficit - 16:15: [id number] cg 00 Nutritional swallowing NT: Resolve 2018-092019-08-01 Silas Barrier difficultie Barriers d 0-01 11:00:00 [place] present 14:45: [id number] 00 Nutritional knowledge/s NT: Resolve 2018-092019-08-01 Silas Barrier kill Barriers d 0-01 11:00:00 [place] deficit - 14:45: [id number] pt 00 Nutritional food NT: Resolve 2018-092019-08-01 Silas Barrier consistency Barriers d 0-01 11:00:00 [place] requirement 14:45: [id number] 00 Speech Prod knowledge/s ST: Speech Resolve 2018-092019-08-01 Eufemia kill Prod d 0-07 11:00:00 Carrier RN deficit - 16:30: pt 00 Neuro anxiety Neuro/Emot Resolve 2018-092019-09-08 Paige present ion d 0-17 12:30:00 [place] 16:15: [id number] 00 Respiratory knowledge/s Respirator Resolve 2018-092019-08-12 Eufemia [...] Unknown 2018-09 [place] deficit 1-12 [place] 15:30: [id number] 00 Neuro depressive Neuro/Emot Resolve 2018-092019-09-08 Lori feelings ion d 1-15 12:30:00 [place] present 11:55: 00 Activity self-care Activity Resolve 2018-092019-08-12 Lori deficit d 15 11:55:00 [place] 11:55: 00 Respiratory dyspnea Respirator Active 2018-09 Veronica chavez y 10-18 [place] 10:50: [id number] 00 Endo/Jono anti-coagul Endo/Jono Resolve 2018-092019-09-08 Veronica augustin d 10-18 12:30:00 [place] therapy 10:50: [id number] 00 Elimination urinary Eliminatio Active 2018-09 Veronica incontinenc n - [place] e 10:50: [id number] 00 Elimination UTI within Eliminatio Active 2018-09 Veronica past 14 n 1-21 [place] days 10:50: [id number] 00 Elimination constipatio Eliminatio Active 2018-09 Veronica n n - [place] 10:50: [id number] 00 Elimination diarrhea Eliminatio Active 2018-09 Veronica n - [place] 10:50: [id number] 00 Respiratory oxygen Respirator Active 2018-09 Veronica treatments y 1- [place] in home 11:30: [id number] 00 Cardio pacemaker/I Cardiovasc Active 2018-09 Veronica CD ular 2- [place] 11:48: [id number] 00 Respiratory nebulizer Respirator Active 2018-09 Eufemia [...] 2018-09 [place]ie restriction 2- [place] s 10:45: [id number] 00 Activity ADL Activity Active Eufemia assistance [...] Date Clinician cephalexin Base Active Unknown Reaction [place] Ingredient Unknown 2-14 Luis enoxaparin Base Active Unknown Reaction [place] Ingredient Unknown 2-14 Luis dofetilide Base Active Unknown Reaction [place] Ingredient Unknown 2-14 Luis latex Base Active Unknown Reaction [place] Ingredient Unknown 214 Luis shellfish Base Active Unknown Reaction [place] derived Ingredient Unknown -14 Luis eggs Unknown [...] 3350 (bulk) 3350 (bulk) na powder powder [place] 3-6-9 [place] 3-6-9 2018- No Galyanova Unknown Unknown 1,200 [...] 0-14 MD,Genia mg-dha-epa- mg-dha-epa- na other other [id number] h oil 1,000 h oil 1,000 mg [...]
--- OUTSIDE RECORDS SUMMARY | 2019-10-25 16:05 | XMS REPORT ---
:1940 Author Organization [facility] Care Team Providers Name Role Phone Unavailable Unavailable Unavailable Problems Condition Condition Condition Status Onset Resolution Last Treating Comments Name Details Category Date Date Treatment Clinician Date Pain frequent Pain Mgmt Active Claudia pain 06-03 [place] 12:15: [id number] 00 Respiratory lung sounds Respirator Resolve 2019-08-12 Claudia deficit y d 06-03 11:55:00 [place] 12:15: [id number] 00 Respiratory dyspnea Respirator Resolve 2019-08-12 Claudia present y d 06-03 11:55:00 [place] 12:15: [id number] 00 Respiratory oxygen Respirator Resolve 2019-08-12 Claudia treatments y d 06-03 11:55:00 [place] in home 12:15: [id number] 00 Endo/Jono insulin Endo/Jono Active Claudia admn 06-03 [place] dependence 12:15: [id number] 00 Endo/Jono glucose Endo/Jono Active Claudia testing 06-03 [place] dependence 12:15: [id number] 00 Endo/Jono knowledge/s Endo/Jono Resolve 2019-08-12 Claudia kill d 06-03 11:55:00 [place] deficit: pt 12:15: [id number] 00 Endo/Jono knowledge/s Endo/Jono Resolve 2019-08-12 Claudia kill d 06-03 11:55:00 [place] deficit: cg 12:15: [id number] 00 Endo/Jono diabetic Endo/Jono Active Claudia foot care 06-03 [place] 12:15: [id number] 00 Sensory impaired Sensory Active Claudia hearing 06-03 [place] 12:15: [id number] 00 Nutrition nutritional Nutrition Active Claudia restriction 06-03 [place] s 12:15: [id number] 00 Elimination urinary Eliminatio Resolve 2019-07-14 Claudia incontinenc n d 06-03 16:15:00 [place] e 12:15: [id number] 00 Elimination UTI within Eliminatio Resolve 2019-07-14 Claudia past 14 n d 06-03 16:15:00 [place] days 12:15: [id number] 00 Neuro confusion Neuro/Emot Active Claudia present ion 06-03 [place] 12:15: [id number] 00 Neuro impaired Neuro/Emot Active Claudia decision-ma ion 06-03 [place] ciara 12:15: [id number] 00 Neuro memory Neuro/Emot Active Claudia deficit ion 06-03 [place] needing 12:15: [id number] supervision 00 Activity ADL Activity Active Claudia assistance 06-03 [place] required 12:15: [id number] 00 Activity self-care Activity Resolve 2019-06-28 Claudia deficit d 06-03 16:15:00 [place] 12:15: [id number] 00 Safety structural Safety Active Claudia barriers 06-03 [place] present 12:15: [id number] 00 Safety cannot be Safety Active Claudia left alone 06-03 [place] 12:15: [id number] 00 Safety fall risk Safety Active Claudia factor 06-03 [place] present 12:15: [id number] 00 Safety risk for Safety Active Claudia hospitaliza 06-03 [place] tion 12:15: [id number] 00 Medication oral med Meds Active Claudia assistance 06-03 [place] required 12:15: [id number] 00 Medication injectable Meds Active Claudia med 06-03 [place] assistance 12:15: [id number] required 00 Medication knowledge/s Meds Active Claudia kill 06-03 [place] deficit: pt 12:15: [id number] 00 Medication potential Meds Active Claudia clinically 06-03 [place] significant 12:15: [id number] medication 00 issue Diagnoses knowledge/s Diagnoses Active Claudia kill 06-03 [place] deficit: cg 12:15: [id number] 00 Musculoskel transfer Musculoske Resolve 2019-07-23 Claudia etal assistance letal d 06-03 09:25:00 [place] required 12:15: [id number] 00 Musculoskel requires Musculoske Resolve 2019-07-23 Claudia etal human letal d 06-03 09:25:00 [place] assist to 12:15: [id number] leave home 00 Endo/Jono anti-coagul Endo/Jono Resolve 2019-08-12 Paige ation d 06-06 11:55:00 Regeczi therapy 11:20: [id number] 00 Elimination constipatio Eliminatio Resolve 2019-07-14 Paige n n d 06-06 16:15:00 [place] 11:20: [id number] 00 Cardio edema Cardiovasc Resolve 2019-08-12 Veronica ular d 06-09 11:55:00 Suj[place] 10:30: [id number] 00 Safety can be left Safety Active Veronica alone for 06-09 Sujata only short 10:30: [id number] periods 00 24 Hr Diet nutrition NT: 24Hr Resolve 2019-06-24 Mary intake Diet d 06-10 16:15:00 [place] deficit 15:45: [id number] 00 24 Hr Diet knowledge/s NT: 24Hr Resolve 2019-06-10 Mary kill Diet d 06-10 15:45:00 [place] deficit - 15:45: [id number] pt 00 24 Hr Diet knowledge/s NT: 24Hr Resolve 2019-06-10 Mary kill Diet d 06-10 15:45:00 [place] deficit - 15:45: [id number] cg 00 Nutritional eating NT: Resolve 2019-06-10 Mary Barrier difficultie Barriers d 06-10 15:45:00 [place] s present 15:45: [id number] 00 Nutritional knowledge/s NT: Resolve 2019-06-10 Mary Barrier kill Barriers d 06-10 15:45:00 [place] deficit - 15:45: [id number] pt 00 24 Hr Diet knowledge/s NT: 24Hr Resolve 2019-06-24 Veronica kill Diet d 06-14 16:15:00 Sujata deficit - 10:40: [id number] pt 00 Nutritional swallowing NT: Resolve 2019-06-24 Silas Barrier difficultie Barriers d 06-20 16:15:00 [place] s present 16:00: [id number] 00 Nutritional knowledge/s NT: Resolve 2019-06-24 Silas Barrier kill Barriers d 06-20 16:15:00 [place] deficit - 16:00: [id number] pt 00 Nutritional food NT: Resolve 2019-06-24 Silas Barrier consistency Barriers d 06-20 16:15:00 [place] requirement 16:00: [id number] [address]: Speech Resolve 2019-07-01 Silas production Prod d 06-20 13:30:00 [place] deficit 16:00: [id number] 00 Speech Prod knowledge/s ST: Speech Resolve 2019-07-01 Silas kill Prod d 06-20 13:30:00 [place] deficit - 16:00: [id number] pt [address]: Resolve 2019-07-01 Silas deficit Swallowing d 06-20 13:30:00 [place] 16:00: [id number] [address]: Resolve 2019-07-01 Silas kill Swallowing d 06-20 13:30:00 [place] deficit - 16:00: [id number] pt 00 Social knowledge/s RAMA: Active [facility] kill Social 06-21 [place] deficit - Services 13:00: [id number] pt 00 Social knowledge/s RAMA: Active [facility] kill Social 06-21 [place] deficit - Services 13:00: [id number] cg 00 Respiratory nebulizer Respirator Resolve 2019-08-12 Eufemia treatment y d 06-24 11:55:00 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 14:45: 00 24 Hr Diet knowledge/s NT: 24Hr Resolve 2019-06-24 Mary kill Diet d 06-24 16:15:00 [place] deficit - 16:15: [id number] cg 00 Nutritional swallowing NT: Resolve 2018-092019-08-01 Silas Barrier difficultie Barriers d 0- 11:00:00 [place] s present 14:45: [id number] 00 Nutritional knowledge/s NT: Resolve 2018-092019-08-01 Silas Barrier kill Barriers d 0-01 11:00:00 [place] deficit - 14:45: [id number] pt 00 Nutritional food NT: Resolve 2018-092019-08-01 Silas Barrier consistency Barriers d 0-01 11:00:00 [place] requirement 14:45: [id number] 00 Speech Prod knowledge/s ST: Speech Resolve 2018-092019-08-01 Eufemia kill Prod d 0-07 11:00:00 Carrier RN deficit - 16:30: pt 00 Neuro anxiety Neuro/Emot Active 2018-09 Paige present ion 0-17 Regeczi 16:15: [id number] 00 Respiratory knowledge/s Respirator Resolve 2018-092019-08-12 Eufemia kill y d 0-21 11:55:00 Carrier RN deficit: pt 12:05: 00 Cardio pacemaker/I Cardiovasc Resolve 2018-092019-08-11 Eufemia CD ular d 1-04 12:00:00 Carrier RN 11:00: 00 Respiratory CPAP Respirator Resolve 2018-092019-08-12 Eufemia treatments y d 1-04 11:55:00 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 11:00: 00 Integument skin Integument Resolve 2018-092019-08-12 Eufemia integrity d 104 11:55:00 Carrier RN risk 11:00: 00 Activity self-care Activity Unknown 2018-09 Eufemia deficit 1-04 Carrier RN 11:00: 00 Musculoskel transfer Musculoske Active 2018-09 Eufemia etal assistance letal 1-04 Carrier RN required 11:00: 00 Musculoskel requires Musculoske Active 2018-09 Eufemia etal human letal 1-04 Carrier RN assist to 11:00: leave home 00 Activity self-care Activity Unknown 2018-09 [place] deficit 1-12 [place] 15:30: [id number] 00 Neuro depressive Neuro/Emot Active 2018-09 Lori feelings ion -15 [place] present 11:55: 00 Activity self-care Activity Resolve 2018-092019-08-12 Lori deficit d 1-15 11:55:00 [place] 11:55: 00 Respiratory dyspnea Respirator Active 2018-09 Veronica present y 10-18 Sujata 10:50: [id number] 00 Endo/Jono anti-coagul Endo/Jono Active 2018-09 Veronica ation - Sujata therapy 10:50: [id number] 00 Elimination urinary Eliminatio Active 2018-09 Veronica incontinenc n - Sujata e 10:50: [id number] 00 Elimination UTI within Eliminatio Active 2018-09 Veronica past 14 n 1- Sujata days 10:50: [id number] 00 Elimination constipatio Eliminatio Active 2018-09 Veronica n n - Su[place] 10:50: [id number] 00 Elimination diarrhea Eliminatio Active 2018-09 Veronica n - Suj[place] 10:50: [id number] 00 Respiratory oxygen Respirator Active 2018-09 Veronica treatments y 10-26 Sujata in home 11:30: [id number] 00 Cardio pacemaker/I Cardiovasc Active 2018-09 Veronica CD ular 11-03 Sujata 11:48: [id number] 00 Allergies, Adverse Reactions, Alerts Allergy Name Allergy Status Severity Reaction(s) Onset Inactive Treating Comments Type Date Date Clinician cephalexin Base Active Unknown Reaction [place] Ingredient Unknown 2-14 Luis enoxaparin Base Active Unknown Reaction [place] Ingredient Unknown 2-14 Luis dofetilide Base Active Unknown Reaction [place] Ingredient Unknown 2-14 Luis latex Base Active Unknown Reaction [place] Ingredient Unknown 2-14 Luis shellfish Base Active Unknown Reaction [place] derived Ingredient Unknown 2-14 Luis Medications Ordered Filled Start Stop Current Ordering Indication Dosage Frequency Signature Comments Components Medication Medication Date Date Medication? Clinician (SIG) Name Name aspirin 81 aspirin 81 2018- 2019- No Galyanova Unknown Unknown mg chewable [...] s pen s pen HumaLOG HumaLOG No [place] Unknown Unknown Pk Pk 06-03 Genia ALDRIDGE Murali Carrion na (U-100) 100 (U-100) 100 unit/mL unit/mL [...] Unknown Unknown 2,000 unit 2,000 unit 06-03 MDGenia tablet tablet na omeprazole omeprazole No Galyanova Unknown Unknown 40 mg 40 mg 06-03 MDGenia capsule,del capsule,del na ayed ayed release release [...] Unknown Unknown sulfate HFA sulfate HFA 06-03 Genia ALDRIDGE 90 90 na mcg/actuati mcg/actuati on aerosol on aerosol inhaler inhaler Tradjenta 5 Tradjenta 5 2018- No Galyanova Unknown Unknown mg tablet mg tablet 06-03 MD,Genia na pravastatin pravastatin No [place] Unknown Unknown 80 mg 80 mg 06-03 MD,Genia tablet tablet na polyethylen polyethylen No [place] Unknown Unknown e glycol e glycol 06-03 MD,Genia 3350 (bulk) 3350 (bulk) na powder powder [place] 3-6-9 [place] 3-6-9 2018- No Galyanova Unknown Unknown 1,200 [...] Unknown Dose 81 mg Dose 81 mg 9-06 MD,Genia tablet,fela tablet,fela na yed release yed release metOLazone metOLazone 2018- No [place] Unknown Unknown 2.5 mg 2.5 mg 9- 10-14 MD,Genia tablet tablet na Eliquis 5 Eliquis 5 Yes [place] Unknown Unknown mg tablet mg tablet 9-20 MD,Genia na senna 8.6 senna 8.6 2018- Yes Galyanova Unknown Unknown mg tablet mg tablet 9 10-17 MD,Genia na HYDROcodone HYDROcodone Yes G[place]anova Unknown Unknown 10 10 9-25 MD,Genia [...] 0-14 MD,Genia mg-dha-epa- mg-dha-epa- na other other [id number] [id number] h oil 1,000 h oil 1,000 mg capsule mg capsule pregabalin pregabalin 2018-09- Yes Galyanova Unknown Unknown 50 mg 50 mg 0-14 10-22 MD,Genia capsule capsule na Lantus Lantus 2018-09- Yes [place] Unknown Unknown Solostar Solostar 0-14 10-31 MD,Genia U-100 U-100 na Insulin 100 Insulin 100 unit/mL (3 unit/mL (3 mL) mL) [facility] s pen s pen sennosides sennosides 2018-09 [...] Unknown U-300 U-300 2-09 Abimael ALDRIDGE SoloStar SoloStar 300 unit/mL 300 unit/mL (3 mL) (3 mL) subcutaneou subcutaneou s insulin s insulin pen pen Vital Signs Vital Name Observation Time Observation Value Comments SYSTOLIC mm[Hg] 2019-09-06 18:09:17 122 mm[Hg] mm[Hg] Method: Sit SYSTOLIC mm[Hg] 2019-06-17 18:07:56 120 mm[Hg] mm[Hg] Method: Stand DIASTOLIC mm[Hg] 2019-09-06 18:09:17 70 mm[Hg] mm[Hg] Method: Sit DIASTOLIC mm[Hg] 2019-06-17 18:07:56 66 mm[Hg] mm[Hg] Method: Stand PULSE 2019-09-06 18:09:17 80 /min /min RESP RATE 2019-09-06 18:09:17 16 /min /min TEMP 2019-09-06 18:09:17 97.4 [degF] Procedures This patient has no known procedures. Results This patient has no known results.
--- OUTSIDE RECORDS SUMMARY | 2019-10-25 16:05 | XMS REPORT ---
:1940 Author Organization [facility] Care Team Providers Name Role Phone Unavailable Unavailable Unavailable Problems Condition Condition Condition Status Onset Resolution Last Treating Comments Name Details Category Date Date Treatment Clinician Date Pain frequent Pain Mgmt Active Claudia pain 06-03 [place] 12:15: [id number] 00 Respiratory lung sounds Respirator Resolve 2019-08-12 Claudia deficit y d 06-03 11:55:00 [place] 12:15: [id number] 00 Respiratory dyspnea Respirator Resolve 2019-08-12 Claudia present y d 06-03 11:55:00 [place] 12:15: [id number] 00 Respiratory oxygen Respirator Resolve 2019-08-12 Claudia treatments y d 06-03 11:55:00 [place] in home 12:15: [id number] 00 Endo/Jono insulin Endo/Jono Active Claudia admn 06-03 [place] dependence 12:15: [id number] 00 Endo/Jono glucose Endo/Jono Active Claudia testing 06-03 [place] dependence 12:15: [id number] 00 Endo/Jono knowledge/s Endo/Jono Resolve 2019-08-12 Claudia kill d 06-03 11:55:00 [place] deficit: pt 12:15: [id number] 00 Endo/Jono knowledge/s Endo/Jono Resolve 2019-08-12 Claudia kill d 06-03 11:55:00 [place] deficit: cg 12:15: [id number] 00 Endo/Jono diabetic Endo/Jono Active Claudia foot care 06-03 [place] 12:15: [id number] 00 Sensory impaired Sensory Active Claudia hearing 06-03 [place] 12:15: [id number] 00 Nutrition nutritional Nutrition Active Claudia restriction 06-03 [place] s 12:15: [id number] 00 Elimination urinary Eliminatio Resolve 2019-07-14 Claudia incontinenc n d 06-03 16:15:00 [place] e 12:15: [id number] 00 Elimination UTI within Eliminatio Resolve 2019-07-14 Claudia past 14 n d 06-03 16:15:00 [place] days 12:15: [id number] 00 Neuro confusion Neuro/Emot Active Claudia present ion 06-03 [place] 12:15: [id number] 00 Neuro impaired Neuro/Emot Active Claudia decision-ma ion 06-03 [place] ciara 12:15: [id number] 00 Neuro memory Neuro/Emot Active Claudia deficit ion 06-03 [place] needing 12:15: [id number] supervision 00 Activity ADL Activity Active Claudia assistance 06-03 [place] required 12:15: [id number] 00 Activity self-care Activity Resolve 2019-06-28 Claudia deficit d 06-03 16:15:00 [place] 12:15: [id number] 00 Safety structural Safety Active Claudia barriers 06-03 [place] present 12:15: [id number] 00 Safety cannot be Safety Active Claudia left alone 06-03 [place] 12:15: [id number] 00 Safety fall risk Safety Active Claudia factor 06-03 [place] present 12:15: [id number] 00 Safety risk for Safety Active Claudia hospitaliza 06-03 [place] tion 12:15: [id number] 00 Medication oral med Meds Active Claudia assistance 06-03 [place] required 12:15: [id number] 00 Medication injectable Meds Active Claudia med 06-03 [place] assistance 12:15: [id number] required 00 Medication knowledge/s Meds Active Claudia kill 06-03 [place] deficit: pt 12:15: [id number] 00 Medication potential Meds Active Claudia clinically 06-03 [place] significant 12:15: [id number] medication 00 issue Diagnoses knowledge/s Diagnoses Active Claudia kill 06-03 [place] deficit: cg 12:15: [id number] 00 Musculoskel transfer Musculoske Resolve 2019-07-23 Claudia etal assistance letal d 06-03 09:25:00 [place] required 12:15: [id number] 00 Musculoskel requires Musculoske Resolve 2019-07-23 Claudia etal human letal d 06-03 09:25:00 [place] assist to 12:15: [id number] leave home 00 Endo/Jono anti-coagul Endo/Jono Resolve 2019-08-12 Paige ation d 06-06 11:55:00 Regeczi therapy 11:20: [id number] 00 Elimination constipatio Eliminatio Resolve 2019-07-14 Paige n n d 06-06 16:15:00 Regeczi 11:20: [id number] 00 Cardio edema Cardiovasc Resolve 2019-08-12 Veronica ular d 06-09 11:55:00 [place] 10:30: [id number] 00 Safety can be left Safety Active Veronica alone for 06-09 Sujata only short 10:30: [id number] periods 00 24 Hr Diet nutrition NT: 24Hr Resolve 2019-06-24 Mary intake Diet d 06-10 16:15:00 [place] deficit 15:45: [id number] 00 24 Hr Diet knowledge/s NT: 24Hr Resolve 2019-06-10 Mary kill Diet d 06-10 15:45:00 [place] deficit - 15:45: [id number] pt 00 24 Hr Diet knowledge/s NT: 24Hr Resolve 2019-06-10 Mary kill Diet d 06-10 15:45:00 [place] deficit - 15:45: [id number] cg 00 Nutritional eating NT: Resolve 2019-06-10 Mary Barrier difficultie Barriers d 06-10 15:45:00 [place] s present 15:45: [id number] 00 Nutritional knowledge/s NT: Resolve 2019-06-10 Mary Barrier kill Barriers d 06-10 15:45:00 [place] deficit - 15:45: [id number] pt 00 24 Hr Diet knowledge/s NT: 24Hr Resolve 2019-06-24 Veronica kill Diet d 06-14 16:15:00 Suj[place] deficit - 10:40: [id number] pt 00 Nutritional swallowing NT: Resolve 2019-06-24 Silas Barrier difficultie Barriers d 06-20 16:15:00 [place] s present 16:00: [id number] 00 Nutritional knowledge/s NT: Resolve 2019-06-24 Silas Barrier kill Barriers d 06-20 16:15:00 [place] deficit - 16:00: [id number] pt 00 Nutritional food NT: Resolve 2019-06-24 Silas Barrier consistency Barriers d 06-20 16:15:00 [place] requirement 16:00: [id number] [address]: Speech Resolve 2019-07-01 Silas production Prod d 06-20 13:30:00 [place] deficit 16:00: [id number] 00 Speech Prod knowledge/s ST: Speech Resolve 2019-07-01 Silas kill Prod d 06-20 13:30:00 [place] deficit - 16:00: [id number] pt [address]: Resolve 2019-07-01 Silas deficit Swallowing d 06-20 13:30:00 [place] 16:00: [id number] [address]: Resolve 2019-07-01 Silas kill Swallowing d 06-20 13:30:00 [place] deficit - 16:00: [id number] pt 00 Social knowledge/s RAMA: Active [facility] kill Social 06-21 [place] deficit - Services 13:00: [id number] pt 00 Social knowledge/s RAMA: Active [facility] kill Social 06-21 [place] deficit - Services 13:00: [id number] cg 00 Respiratory nebulizer Respirator Resolve 2019-08-12 Eufemia treatment y d 06-24 11:55:00 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 14:45: 00 24 Hr Diet knowledge/s NT: 24Hr Resolve 2019-06-24 Mary kill Diet d 06-24 16:15:00 [place] deficit - 16:15: [id number] cg 00 Nutritional swallowing NT: Resolve 2018-092019-08-01 Silas Barrier difficultie Barriers d 0- 11:00:00 [place] s present 14:45: [id number] 00 Nutritional knowledge/s NT: Resolve 2018-092019-08-01 Silas Barrier kill Barriers d 0-01 11:00:00 [place] deficit - 14:45: [id number] pt 00 Nutritional food NT: Resolve 2018-092019-08-01 Silas Barrier consistency Barriers d 0-01 11:00:00 [place] requirement 14:45: [id number] 00 Speech Prod knowledge/s ST: Speech Resolve 2018-092019-08-01 Eufemia kill Prod d 0-07 11:00:00 Carrier RN deficit - 16:30: pt 00 Neuro anxiety Neuro/Emot Active 2018-09 Paige present ion 0-17 Regeczi 16:15: [id number] 00 Respiratory knowledge/s Respirator Resolve 2018-092019-08-12 Eufemia [...] Unknown 2018-09 [place] deficit 1-12 [place] 15:30: [id number] 00 Neuro depressive Neuro/Emot Active 2018-09 Lori feelings ion -15 [place] present 11:55: 00 Activity self-care Activity Resolve 2018-092019-08-12 Lori deficit d 1-15 11:55:00 [place] 11:55: 00 Respiratory dyspnea Respirator Active 2018-09 Veronica present y 10-18 Suj[place] 10:50: [id number] 00 Endo/Jono anti-coagul Endo/Jono Active 2018-09 Veronica ation - Suj[place] therapy 10:50: [id number] 00 Elimination urinary Eliminatio Active 2018-09 Veronica incontinenc n - Sujata e 10:50: [id number] 00 Elimination UTI within Eliminatio Active 2018-09 Veronica past 14 n 1- Sujata days 10:50: [id number] 00 Elimination constipatio Eliminatio Active 2018-09 Veronica n n - Suj[place] 10:50: [id number] 00 Elimination diarrhea Eliminatio Active 2018-09 Veronica n - [place] 10:50: [id number] 00 Respiratory oxygen Respirator Active 2018-09 Veronica treatments y 10-26 Sujata in home 11:30: [id number] 00 Cardio pacemaker/I Cardiovasc Active 2018-09 Veronica CD ular 11-03 Suj[place] 11:48: [id number] 00 Allergies, Adverse Reactions, Alerts Allergy Name Allergy Status Severity Reaction(s) Onset Inactive Treating Comments Type Date Date Clinician cephalexin Base Active Unknown Reaction [place] Ingredient Unknown 2-14 Luis enoxaparin Base Active Unknown Reaction [place] Ingredient Unknown 2-14 Luis dofetilide Base Active Unknown Reaction [place] Ingredient Unknown 2-14 Luis latex Base Active Unknown Reaction [place] Ingredient Unknown 2-14 Luis shellfish Base Active Unknown Reaction [place] derived Ingredient Unknown 2-14 Luis Medications Ordered [...] 3350 (bulk) 3350 (bulk) na powder powder [place] 3-6-9 [place] 3-6-9 2018- No Galyanova Unknown Unknown 1,200 [...] 0-14 MD,Genia mg-dha-epa- mg-dha-epa- na other other [id number] h oil 1,000 h oil 1,000 mg capsule mg capsule pregabalin pregabalin 2018-09- Yes Galyanova Unknown Unknown 50 mg 50 mg 0-14 10-22 MD,Genia capsule capsule na Lantus Lantus 2018-09- Yes Galyanova Unknown Unknown Solostar Solostar 0-14 10-31 MD,Genia U-100 U-100 na Insulin 100 Insulin 100 unit/mL (3 unit/mL (3 mL) mL) [facility] s pen s pen sennosides sennosides 2018-09 [...]
--- OUTSIDE RECORDS SUMMARY | 2019-10-25 16:05 | XMS REPORT ---
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 emt intermediate Diagnosis Active Eufemia (current) (current) Carrier RN use of use of anticoagula anticoagula nts nts nursing home nursing home Diagnosis Active Eufemia (current) (current) Carrier RN use of use of insulin insulin nursing home nursing home Diagnosis Active Eufemia (current) (current) Carrier RN use of use of aspirin aspirin Pain frequent Pain Mgmt Active Claudia pain 06-03 [place] 12:15: [id number] 00 Respiratory lung sounds Respirator Resolve 2019-08-12 Claudia deficit y d 06-03 11:55:00 [place] 12:15: [id number] 00 Respiratory dyspnea Respirator Resolve 2019-08-12 Claudia present y d 06-03 11:55:00 [place] 12:15: [id number] 00 Respiratory oxygen Respirator Resolve 2019-08-12 Claudia treatments y d 06-03 11:55:00 [place] in home 12:15: [id number] 00 Endo/Jono insulin Endo/Jono Active Claudia admn 06-03 [place] dependence 12:15: [id number] 00 Endo/Jono glucose Endo/Jono Active Claudia testing 06-03 [place] dependence 12:15: [id number] 00 Endo/Jono knowledge/s Endo/Jono Resolve 2019-08-12 Claudia kill d 06-03 11:55:00 [place] deficit: pt 12:15: [id number] 00 Endo/Jono knowledge/s Endo/Jono Resolve 2019-08-12 Claudia kill d 06-03 11:55:00 [place] deficit: cg 12:15: [id number] 00 Endo/Jono diabetic Endo/Jono Active Claudia foot care 06-03 [place] 12:15: [id number] 00 Sensory impaired Sensory Resolve 2019-09-08 Claudia hearing d 06-03 12:30:00 [place] 12:15: [id number] 00 Nutrition nutritional Nutrition Resolve 2019-09-08 Claudia restriction d 06-03 12:30:00 [place] s 12:15: [id number] 00 Elimination urinary Eliminatio Resolve 2019-07-14 Claudia incontinenc n d 06-03 16:15:00 [place] e 12:15: [id number] 00 Elimination UTI within Eliminatio Resolve 2019-07-14 Claudia past 14 n d 06-03 16:15:00 [place] days 12:15: [id number] 00 Neuro confusion Neuro/Emot Resolve 2019-09-08 Claudia present ion d 06-03 12:30:00 [place] 12:15: [id number] 00 Neuro impaired Neuro/Emot Resolve 2019-09-08 Claudia decision-ma ion d 06-03 12:30:00 [facility] 12:15: [id number] 00 Neuro memory Neuro/Emot Resolve 2019-09-08 Claudia deficit ion d 06-03 12:30:00 [place] needing 12:15: [id number] supervision 00 Activity ADL Activity Resolve 2019-09-08 Claudia assistance d 06-03 12:30:00 [place] required 12:15: [id number] 00 Activity self-care Activity Resolve 2019-06-28 Claudia deficit d 06-03 16:15:00 [place] 12:15: [id number] 00 Safety structural Safety Active Claudia barriers 06-03 [place] present 12:15: [id number] 00 Safety cannot be Safety Active Claudia left alone 06-03 [place] 12:15: [id number] 00 Safety fall risk Safety Active Claudia factor 06-03 [place] present 12:15: [id number] 00 Safety risk for Safety Active Claudia hospitaliza 06-03 [place] tion 12:15: [id number] 00 Medication oral med Meds Active Claudia assistance 06-03 [place] required 12:15: [id number] 00 Medication injectable Meds Active Claudia med 06-03 [place] assistance 12:15: [id number] required 00 Medication knowledge/s Meds Active Claudia kill 06-03 [place] deficit: pt 12:15: [id number] 00 Medication potential Meds Active Claudia clinically 06-03 [place] significant 12:15: [id number] medication 00 issue Diagnoses knowledge/s Diagnoses Active Claudia kill 06-03 [place] deficit: cg 12:15: [id number] 00 Musculoskel transfer Musculoske Resolve 2019-07-23 Claudia etal assistance letal d 06-03 09:25:00 [place] required 12:15: [id number] 00 Musculoskel requires Musculoske Resolve 2019-07-23 Claudia etal human letal d 06-03 09:25:00 [place] assist to 12:15: [id number] leave home 00 Endo/Jono anti-coagul Endo/Jono Resolve 2019-08-12 Paige augustin d 06-06 11:55:00 Regeczi therapy 11:20: [id number] 00 Elimination constipatio Eliminatio Resolve 2019-07-14 Paige berman n d 06-06 16:15:00 Regeczi 11:20: [id number] 00 Cardio edema Cardiovasc Resolve 2019-08-12 Veronica guillen d 06-09 11:55:00 Sujata 10:30: [id number] 00 Safety can be left Safety Active Veronica alone for 06-09 Sujata only short 10:30: [id number] periods 00 24 Hr Diet nutrition NT: 24Hr Resolve 2019-06-24 Mary intake Diet d 06-10 16:15:00 [place] deficit 15:45: [id number] 00 24 Hr Diet knowledge/s NT: 24Hr Resolve 2019-06-10 Mary kill Diet d 06-10 15:45:00 [place] deficit - 15:45: [id number] pt 00 24 Hr Diet knowledge/s NT: 24Hr Resolve 2019-06-10 Mary kill Diet d 06-10 15:45:00 [place] deficit - 15:45: [id number] cg 00 Nutritional eating NT: Resolve 2019-06-10 Mary Barrier difficultie Barriers d 06-10 15:45:00 [place] s present 15:45: [id number] 00 Nutritional knowledge/s NT: Resolve 2019-06-10 Mary Barrier kill Barriers d 06-10 15:45:00 [place] deficit - 15:45: [id number] pt 00 24 Hr Diet knowledge/s NT: 24Hr Resolve 2019-06-24 Veronica kill Diet d 06-14 16:15:00 Sujata deficit - 10:40: [id number] pt 00 Nutritional swallowing NT: Resolve 2019-06-24 Silas Barrier difficultie Barriers d 06-20 16:15:00 [place] s present 16:00: [id number] 00 Nutritional knowledge/s NT: Resolve 2019-06-24 Silas Barrier kill Barriers d 06-20 16:15:00 [place] deficit - 16:00: [id number] pt 00 Nutritional food NT: Resolve 2019-06-24 Silas Barrier consistency Barriers d 06-20 16:15:00 [place] requirement 16:00: [id number] [address]: Speech Resolve 2019-07-01 Silas production Prod d 06-20 13:30:00 [place] deficit 16:00: [id number] 00 Speech Prod knowledge/s ST: Speech Resolve 2019-07-01 Silas kill Prod d 06-20 13:30:00 [place] deficit - 16:00: [id number] pt [address]: Resolve 2019-07-01 Silas deficit Swallowing d 06-20 13:30:00 [place] 16:00: [id number] [address]: Resolve 2019-07-01 Silas kill Swallowing d 06-20 13:30:00 [place] deficit - 16:00: [id number] pt 00 Social knowledge/s RAMA: Active [facility] kill Social 06-21 [place] deficit - Services 13:00: [id number] pt 00 Social knowledge/s RAMA: Active [facility] kill Social 06-21 [place] deficit - Services 13:00: [id number] cg 00 Respiratory nebulizer Respirator Resolve 2019-08-12 Eufemia treatment y d 06-24 11:55:00 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 14:45: 00 24 Hr Diet knowledge/s NT: 24Hr Resolve 2019-06-24 Mary kill Diet d 06-24 16:15:00 [place] deficit - 16:15: [id number] cg 00 Nutritional swallowing NT: Resolve 2018-092019-08-01 Silas Barrier difficultie Barriers d 0-01 11:00:00 [place] s present 14:45: [id number] 00 Nutritional knowledge/s NT: Resolve 2018-092019-08-01 Silas Barrier kill Barriers d 0-01 11:00:00 [place] deficit - 14:45: [id number] pt 00 Nutritional food NT: Resolve 2018-092019-08-01 Silas Barrier consistency Barriers d 0-01 11:00:00 [place] requirement 14:45: [id number] 00 Speech Prod knowledge/s ST: Speech Resolve 2018-092019-08-01 Eufemia kill Prod d 0-07 11:00:00 Carrier RN deficit - 16:30: pt 00 Neuro anxiety Neuro/Emot Resolve 2018-092019-09-08 Paige present ion d 0-17 12:30:00 Regeczi 16:15: [id number] 00 Respiratory knowledge/s Respirator Resolve 2018-092019-08-12 Eufemia [...] Unknown 2018-09 [place] deficit 1-12 [place] 15:30: [id number] 00 Neuro depressive Neuro/Emot Resolve 2018-092019-09-08 Lori feelings ion d 1-15 12:30:00 [place] present 11:55: 00 Activity self-care Activity Resolve 2018-092019-08-12 Lori deficit d 15 11:55:00 [place] 11:55: 00 Respiratory dyspnea Respirator Active 2018-09 Veronica chavez y 10-18 Sujata 10:50: [id number] 00 Endo/Jono anti-coagul Endo/Jono Resolve 2018-092019-09-08 Veronica augustin d 10-18 12:30:00 Sujata therapy 10:50: [id number] 00 Elimination urinary Eliminatio Active 2018-09 Veronica incontinenc n - Sujata e 10:50: [id number] 00 Elimination UTI within Eliminatio Active 2018-09 Veronica past 14 n - Sujata days 10:50: [id number] 00 Elimination constipatio Eliminatio Active 2018-09 Veronica n n - Sujata 10:50: [id number] 00 Elimination diarrhea Eliminatio Active 2018-09 Veronica n - Sujata 10:50: [id number] 00 Respiratory oxygen Respirator Active 2018-09 Veronica treatments y 10-26 Sujaat in home 11:30: [id number] 00 Cardio pacemaker/I Cardiovasc Active 2018-09 Veronica CD ular 11-03 Sujata 11:48: [id number] 00 Respiratory nebulizer Respirator Active 2018-09 Eufemia treatment y 2-10 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 12:25: 00 Allergies, Adverse Reactions, Alerts Allergy Name Allergy Status Severity Reaction(s) Onset Inactive Treating Comments Type Date Date Clinician cephalexin Base Active Unknown Reaction 2018- [place] Ingredient Unknown 2-14 Luis enoxaparin Base Active Unknown Reaction [place] Ingredient Unknown 2-14 Luis dofetilide Base Active Unknown Reaction [place] Ingredient Unknown 2-14 Luis latex Base Active Unknown Reaction [place] Ingredient Unknown 2-14 Luis shellfish Base Active Unknown Reaction [place] derived Ingredient Unknown 2-14 Luis Medications Ordered Filled Start Stop Current Ordering Indication Dosage Frequency Signature Comments Components Medication Medication Date Date Medication? Clinician (SIG) Name Name aspirin 81 aspirin 81 2019- No Galyanova Unknown Unknown mg chewable mg chewable 06-03- MDGenia tablet tablet na ondansetron ondansetron 2018- [...] MDGenia tablet tablet na omeprazole omeprazole No Jessica Unknown Unknown 40 mg 40 mg 06-03 Genia ALDRIDGE capsule,del capsule,del na ayed ayed release release dicyclomine dicyclomine No Jessica Unknown Unknown 10 mg 10 mg 06-03 ,Genia capsule capsule na rOPINIRole rOPINIRole 2018- No Aideeova Unknown Unknown 0.25 mg 0.25 mg 06-03 ,Genia tablet tablet na metOLazone metOLazone 2018- No Jessica Unknown Unknown 2.5 mg 2.5 mg 06-03 ,Genia tablet tablet na Trelegy Trelegy No Jessica Unknown Unknown Ellipta 100 Ellipta 100 06-03 Genia ALDRIDGE mcg-62.5 mcg-62.5 na mcg-25 mcg mcg-25 mcg powder for powder for inhalation inhalation allopurinol allopurinol 2018- No Jessica Unknown Unknown 100 mg 100 mg 06-03- ,Genia tablet tablet na albuterol albuterol No Jessica Unknown Unknown sulfate HFA sulfate HFA 06-03 [...] 3350 (bulk) 3350 (bulk) na powder powder [place] 3-6-9 [place] 3-6-9 2018- No Galyanova Unknown Unknown 1,200 [...] 100 unit/mL (3 unit/mL (3 mL) mL) [facility] Aspirin Low Aspirin Low No Galyanova Unknown Unknown Dose 81 mg Dose 81 mg 9-06 MD,Genia tablet,fela tablet,fela na yed release yed release metOLazone metOLazone No Galyanova Unknown Unknown 2.5 mg 2.5 mg 9- 10-14 MD,Genia tablet tablet na Eliquis 5 Eliquis 5 Yes Galyanova Unknown Unknown mg tablet mg tablet 9-20 MD,Genia na senna 8.6 senna 8.6 2018- Yes Galyanova Unknown Unknown mg tablet mg tablet 06-17 10-17 MD,Genia na HYDROcodone HYDROcodone Yes Galyanova [...] 0-14 MD,Genia mg-dha-epa- mg-dha-epa- na other other [id number] h oil 1,000 h oil 1,000 mg capsule mg capsule pregabalin pregabalin 2018-09 Yes Galyanova Unknown Unknown 50 mg 50 mg 0-14 10-22 MD,Genia capsule capsule na Lantus Lantus 2018-09- Yes Galyanova Unknown Unknown Solostar Solostar 0-14 10-31 MD,Genia U-100 U-100 na Insulin 100 Insulin 100 unit/mL (3 unit/mL (3 mL) mL) [facility] sennosides sennosides [...] Observation Time Observation Value Comments SYSTOLIC mm[Hg] 2019-09-08 18:09:19 128 mm[Hg] mm[Hg] Method: Sit SYSTOLIC mm[Hg] 2019-06-17 18:07:56 120 mm[Hg] mm[Hg] Method: Stand DIASTOLIC mm[Hg] 2019-09-08 18:09:19 80 mm[Hg] mm[Hg] Method: Sit DIASTOLIC mm[Hg] 2019-06-17 18:07:56 66 mm[Hg] mm[Hg] Method: Stand PULSE 2019-09-08 18:09:19 66 /min /min RESP RATE 2019-09-08 18:09:19 16 /min /min TEMP 2019-09-08 18:09:19 97.1 [degF] Procedures This patient has no known procedures. Results This patient has no known results.
--- OUTSIDE RECORDS SUMMARY | 2019-10-25 16:05 | XMS REPORT ---
:1940 Author Organization [facility] Care Team Providers Name Role Phone Unavailable Unavailable Unavailable Problems Condition Condition Condition Status Onset Resolution Last Treating Comments Name Details Category Date Date Treatment Clinician Date Pain frequent Pain Mgmt Active Claudia pain 06-03 [place] 12:15: [id number] 00 Respiratory lung sounds Respirator Resolve 2019-08-12 Claudia deficit y d 06-03 11:55:00 [place] 12:15: [id number] 00 Respiratory dyspnea Respirator Resolve 2019-08-12 Claudia present y d 06-03 11:55:00 [place] 12:15: [id number] 00 Respiratory oxygen Respirator Resolve 2019-08-12 Claudia treatments y d 06-03 11:55:00 [place] in home 12:15: [id number] 00 Endo/Jono insulin Endo/Jono Active Claudia admn 06-03 [place] dependence 12:15: [id number] 00 Endo/Jono glucose Endo/Jono Active Claudia testing 06-03 [place] dependence 12:15: [id number] 00 Endo/Jono knowledge/s Endo/Jono Resolve 2019-08-12 Claudia kill d 06-03 11:55:00 [place] deficit: pt 12:15: [id number] 00 Endo/Jono knowledge/s Endo/Jono Resolve 2019-08-12 Claudia kill d 06-03 11:55:00 [place] deficit: cg 12:15: [id number] 00 Endo/Jono diabetic Endo/Jono Active Claudia foot care 06-03 [place] 12:15: [id number] 00 Sensory impaired Sensory Active Claudia hearing 06-03 [place] 12:15: [id number] 00 Nutrition nutritional Nutrition Active Claudia restriction 06-03 [place] s 12:15: [id number] 00 Elimination urinary Eliminatio Resolve 2019-07-14 Claudia incontinenc n d 06-03 16:15:00 [place] e 12:15: [id number] 00 Elimination UTI within Eliminatio Resolve 2019-07-14 Claudia past 14 n d 06-03 16:15:00 [place] days 12:15: [id number] 00 Neuro confusion Neuro/Emot Active Claudia present ion 06-03 [place] 12:15: [id number] 00 Neuro impaired Neuro/Emot Active Claudia decision-ma ion 06-03 [place] ciara 12:15: [id number] 00 Neuro memory Neuro/Emot Active Claudia deficit ion 06-03 [place] needing 12:15: [id number] supervision 00 Activity ADL Activity Active Claudia assistance 06-03 [place] required 12:15: [id number] 00 Activity self-care Activity Resolve 2019-06-28 Claudia deficit d 06-03 16:15:00 [place] 12:15: [id number] 00 Safety structural Safety Active Claudia barriers 06-03 [place] present 12:15: [id number] 00 Safety cannot be Safety Active Claudia left alone 06-03 [place] 12:15: [id number] 00 Safety fall risk Safety Active Claudia factor 06-03 [place] present 12:15: [id number] 00 Safety risk for Safety Active Claudia hospitaliza 06-03 [place] tion 12:15: [id number] 00 Medication oral med Meds Active Claudia assistance 06-03 [place] required 12:15: [id number] 00 Medication injectable Meds Active Claudia med 06-03 [place] assistance 12:15: [id number] required 00 Medication knowledge/s Meds Active Claudia kill 06-03 [place] deficit: pt 12:15: [id number] 00 Medication potential Meds Active Claudia clinically 06-03 [place] significant 12:15: [id number] medication 00 issue Diagnoses knowledge/s Diagnoses Active Claudia kill 06-03 [place] deficit: cg 12:15: [id number] 00 Musculoskel transfer Musculoske Resolve 2019-07-23 Claudia etal assistance letal d 06-03 09:25:00 [place] required 12:15: [id number] 00 Musculoskel requires Musculoske Resolve 2019-07-23 Claudia etal human letal d 06-03 09:25:00 [place] assist to 12:15: [id number] leave home 00 Endo/Jono anti-coagul Endo/Jono Resolve 2019-08-12 Paige ation d 06-06 11:55:00 Regeczi therapy 11:20: [id number] 00 Elimination constipatio Eliminatio Resolve 2019-07-14 Paige n n d 06-06 16:15:00 Regeczi 11:20: [id number] 00 Cardio edema Cardiovasc Resolve 2019-08-12 Veronica ular d 06-09 11:55:00 Sujata 10:30: [id number] 00 Safety can be left Safety Active Veronica alone for 06-09 Sujata only short 10:30: [id number] periods 00 24 Hr Diet nutrition NT: 24Hr Resolve 2019-06-24 Mary intake Diet d 06-10 16:15:00 [place] deficit 15:45: [id number] 00 24 Hr Diet knowledge/s NT: 24Hr Resolve 2019-06-10 Mary kill Diet d 06-10 15:45:00 [place] deficit - 15:45: [id number] pt 00 24 Hr Diet knowledge/s NT: 24Hr Resolve 2019-06-10 Mary kill Diet d 06-10 15:45:00 [place] deficit - 15:45: [id number] cg 00 Nutritional eating NT: Resolve 2019-06-10 Mary Barrier difficultie Barriers d 06-10 15:45:00 [place] s present 15:45: [id number] 00 Nutritional knowledge/s NT: Resolve 2019-06-10 Mary Barrier kill Barriers d 06-10 15:45:00 [place] deficit - 15:45: [id number] pt 00 24 Hr Diet knowledge/s NT: 24Hr Resolve 2019-06-24 Veronica kill Diet d 06-14 16:15:00 Sujata deficit - 10:40: [id number] pt 00 Nutritional swallowing NT: Resolve 2019-06-24 Silas Barrier difficultie Barriers d 06-20 16:15:00 [place] s present 16:00: [id number] 00 Nutritional knowledge/s NT: Resolve 2019-06-24 Silas Barrier kill Barriers d 06-20 16:15:00 [place] deficit - 16:00: [id number] pt 00 Nutritional food NT: Resolve 2019-06-24 Silas Barrier consistency Barriers d 06-20 16:15:00 [place] requirement 16:00: [id number] [address]: Speech Resolve 2019-07-01 Silas production Prod d 06-20 13:30:00 [place] deficit 16:00: [id number] 00 Speech Prod knowledge/s ST: Speech Resolve 2019-07-01 Silas kill Prod d 06-20 13:30:00 [place] deficit - 16:00: [id number] pt [address]: Resolve 2019-07-01 Silas deficit Swallowing d 06-20 13:30:00 [place] 16:00: [id number] [address] Sw[address]: Resolve 2019-07-01 Silas kill Swallowing d 06-20 13:30:00 [place] deficit - 16:00: [id number] pt 00 Social knowledge/s RAMA: Active [facility] kill Social 06-21 [place] deficit - Services 13:00: [id number] pt 00 Social knowledge/s RAMA: Active [facility] kill Social 06-21 [place] deficit - Services 13:00: [id number] cg 00 Respiratory nebulizer Respirator Resolve 2019-08-12 Eufemia treatment y d 06-24 11:55:00 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 14:45: 00 24 Hr Diet knowledge/s NT: 24Hr Resolve 2019-06-24 Mary kill Diet d 06-24 16:15:00 [place] deficit - 16:15: [id number] cg 00 Nutritional swallowing NT: Resolve 2018-092019-08-01 Silas Barrier difficultie Barriers d 0- 11:00:00 [place] s present 14:45: [id number] 00 Nutritional knowledge/s NT: Resolve 2018-092019-08-01 Silas Barrier kill Barriers d 0-01 11:00:00 [place] deficit - 14:45: [id number] pt 00 Nutritional food NT: Resolve 2018-092019-08-01 Silas Barrier consistency Barriers d 0-01 11:00:00 [place] requirement 14:45: [id number] 00 Speech Prod knowledge/s ST: Speech Resolve 2018-092019-08-01 Eufemia kill Prod d 0-07 11:00:00 Carrier RN deficit - 16:30: pt 00 Neuro anxiety Neuro/Emot Active 2018-09 Paige present ion 0-17 Regeczi 16:15: [id number] 00 Respiratory knowledge/s Respirator Resolve 2018-092019-08-12 Eufemia [...] Unknown 2018-09 [place] deficit 1-12 [place] 15:30: [id number] 00 Neuro depressive Neuro/Emot Active 2018-09 Lori feelings ion -15 Vallely present 11:55: 00 Activity self-care Activity Resolve 2018-092019-08-12 Lori deficit d 1-15 11:55:00 [place] 11:55: 00 Respiratory dyspnea Respirator Active 2018-09 Veronica present y 10-18 Sujata 10:50: [id number] 00 Endo/Jono anti-coagul Endo/Jono Active 2018-09 Veronica ation - Sujata therapy 10:50: [id number] 00 Elimination urinary Eliminatio Active 2018-09 Veronica incontinenc n - Sujata e 10:50: [id number] 00 Elimination UTI within Eliminatio Active 2018-09 Veronica past 14 n - Sujata days 10:50: [id number] 00 Elimination constipatio Eliminatio Active 2018-09 Veronica n n - Sujata 10:50: [id number] 00 Elimination diarrhea Eliminatio Active 2018-09 Veronica n - Sujata 10:50: [id number] 00 Respiratory oxygen Respirator Active 2018-09 Veronica treatments y 10-26 Sujata in home 11:30: [id number] 00 Cardio pacemaker/I Cardiovasc Active 2018-09 Veronica CD ular 11-03 Sujata 11:48: [id number] 00 Respiratory nebulizer Respirator Active 2018-09 Eufemia treatment y 2-10 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 12:25: 00 Allergies, Adverse Reactions, Alerts Allergy Name Allergy Status Severity Reaction(s) Onset Inactive Treating Comments Type Date Date Clinician cephalexin Base Active Unknown Reaction [place] Ingredient Unknown 2-14 Luis enoxaparin Base Active Unknown Reaction [place] Ingredient Unknown 2-14 Luis dofetilide Base Active Unknown Reaction [place] Ingredient Unknown 2-14 Luis latex Base Active Unknown Reaction [place] Ingredient Unknown 2-14 Luis shellfish Base Active Unknown Reaction [place] derived Ingredient Unknown 2-14 Luis Medications Ordered Filled Start Stop Current Ordering Indication Dosage Frequency Signature Comments Components Medication Medication Date Date Medication? Clinician (SIG) Name Name aspirin 81 aspirin 81 2018- 2019- No Galyanova Unknown Unknown mg chewable mg chewable 06-03- Genia ALDRIDGE tablet tablet na ondansetron ondansetron 2018- Galyanova Unknown Unknown 4 mg 4 mg [...] MDGenia tablet tablet na omeprazole omeprazole No Aideeova Unknown Unknown 40 mg 40 mg 06-03 Genia ALDRIDGE capsule,del capsule,del na ayed ayed release release dicyclomine dicyclomine No Aideeova Unknown Unknown 10 mg 10 mg 06-03 ,Genia capsule capsule na rOPINIRole rOPINIRole 2018- No Galyanova Unknown Unknown 0.25 mg 0.25 mg 06-03 ,Genia tablet tablet na metOLazone metOLazone 2018- No Galyanova Unknown Unknown 2.5 mg 2.5 mg 06-03 MDGenia tablet tablet na Trelegy Trelegy No Galgabrielaova Unknown Unknown Ellipta 100 Ellipta 100 06-03 Genia ALDRIDGE mcg-62.5 mcg-62.5 na mcg-25 mcg mcg-25 mcg powder for powder for inhalation inhalation allopurinol allopurinol 2018- No Galyanova Unknown Unknown 100 mg 100 mg 06-03- ,Genia tablet tablet na albuterol albuterol No [place] Unknown Unknown sulfate HFA sulfate HFA 06-03 Genia ALDRIDGE 90 90 na mcg/actuati mcg/actuati on aerosol on aerosol inhaler inhaler Tradjenta 5 Tradjenta 5 2018- No Galyanova Unknown Unknown mg tablet mg tablet 06-03 Genia ALDRIDGE na pravastatin pravastatin No Galyanova Unknown Unknown 80 mg 80 mg 06-03 MD,Genia tablet tablet na polyethylen polyethylen No Galyanova Unknown Unknown e glycol e glycol 06-03 ,Genia 3350 (bulk) 3350 (bulk) na powder powder [place] 3-6-9 [place] 3-6-9 2018- No Galyanova Unknown Unknown 1,200 mg 1,200 mg 06-03 ,Genia capsule capsule na olopatadine olopatadine No Galyanova Unknown Unknown 0.1 % eye 0.1 % eye 06-03 ,Genia drops drops na Vitamin Vitamin No Galyanova Unknown Unknown B-12 500 B-12 500 06-03 ,Genia mcg tablet mcg tablet na bisacodyl 5 bisacodyl 5 No Galyanova Unknown Unknown mg mg 06-03 ,Genia tablet,fela tablet,fela na yed release yed release HYDROcodone HYDROcodone 2018- No Galyanova Unknown Unknown 5 5 06-03 Genia ALDRIDGE mg-acetamin mg-acetamin na ophen 325 ophen 325 mg tablet mg tablet torsemide torsemide No Galyanova Unknown Unknown 20 mg 20 mg 06-03 ,Genia tablet tablet na pregabalin pregabalin 2018- No Galyanova Unknown Unknown 150 mg 150 mg 06-03 ,Genia capsule capsule na pregabalin pregabalin 2018- No Galyanova Unknown Unknown 100 mg 100 mg 06-03 ,Genia capsule capsule na cyclobenzap cyclobenzap 2018- No Galyanova Unknown Unknown rine 10 mg rine 10 mg 06-03 ,Genia tablet tablet na Lantus Lantus 2018- No G[place]anova Unknown Unknown Solostar Solostar 06-06 Genia ALDRIDGE U-100 U-100 na Insulin 100 Insulin 100 unit/mL (3 unit/mL (3 mL) mL) subcutaneou subcutaneou s pen s pen Aspirin Low Aspirin Low No Galyanova Unknown Unknown Dose 81 mg Dose 81 mg 9-06 MD,Genia tablet,fela tablet,fela na yed release yed release metOLazone metOLazone 2018- No Galyanova Unknown Unknown 2.5 mg 2.5 mg 9 10-14 MD,Genia tablet tablet na Eliquis 5 Eliquis 5 Yes Galyanova Unknown Unknown mg tablet mg tablet 920 MD,Genia na senna 8.6 senna 8.6 2018- [...] 0-14 MD,Genia mg-dha-epa- mg-dha-epa- na other other [id number] h oil 1,000 h oil 1,000 mg [...]
--- OUTSIDE RECORDS SUMMARY | 2019-10-25 16:05 | XMS REPORT ---
:1940 Author Organization [facility] Care Team Providers Name Role Phone Unavailable Unavailable Unavailable Problems Condition Condition Condition Status Onset Resolution Last Treating Comments Name Details Category Date Date Treatment Clinician Date Pain frequent Pain Mgmt Active Claudia pain 06-03 Taylor 12:15: [id number] 00 Respiratory lung sounds Respirator Resolve 2019-08-12 Claudia deficit y d 06-03 11:55:00 Taylor 12:15: [id number] 00 Respiratory dyspnea Respirator Resolve 2019-08-12 Claudia present y d 06-03 11:55:00 Taylor 12:15: [id number] 00 Respiratory oxygen Respirator Resolve 2019-08-12 Claudia treatments y d 06-03 11:55:00 Taylor in home 12:15: [id number] 00 Endo/Jono insulin Endo/Jono Active Claudia admn 06-03 Taylor dependence 12:15: [id number] 00 Endo/Jono glucose Endo/Jono Active Claudia testing 06-03 Taylor dependence 12:15: [id number] 00 Endo/Jono knowledge/s Endo/Jono Resolve 2019-08-12 Claudia kill d 06-03 11:55:00 Taylor deficit: pt 12:15: [id number] 00 Endo/Jono knowledge/s Endo/Jono Resolve 2019-08-12 Claudia kill d 06-03 11:55:00 Taylor deficit: cg 12:15: [id number] 00 Endo/Jono diabetic Endo/Jono Active Claudia foot care 06-03 Taylor 12:15: [id number] 00 Sensory impaired Sensory Active Claudia hearing 06-03 Taylor 12:15: [id number] 00 Nutrition nutritional Nutrition Active Claudia restriction 06-03 Taylor s 12:15: [id number] 00 Elimination urinary Eliminatio Resolve 2019-07-14 Claudia incontinenc n d 06-03 16:15:00 Taylor e 12:15: [id number] 00 Elimination UTI within Eliminatio Resolve 2019-07-14 Claudia past 14 n d 06-03 16:15:00 Taylor days 12:15: [id number] 00 Neuro confusion Neuro/Emot Active Claudia present ion 06-03 Taylor 12:15: [id number] 00 Neuro impaired Neuro/Emot Active Claudia decision-ma ion 06-03 Taylor ciara 12:15: [id number] 00 Neuro memory Neuro/Emot Active Claudia deficit ion 06-03 Taylor needing 12:15: [id number] supervision 00 Activity ADL Activity Active Claudia assistance 06-03 Taylor required 12:15: [id number] 00 Activity self-care Activity Resolve 2019-06-28 Claudia deficit d 06-03 16:15:00 Taylor 12:15: [id number] 00 Safety structural Safety Active Claudai barriers 06-03 Taylor present 12:15: [id number] 00 Safety cannot be Safety Active Claudia left alone 06-03 Taylor 12:15: [id number] 00 Safety fall risk Safety Active Claudia factor 06-03 Taylor present 12:15: [id number] 00 Safety risk for Safety Active Claudia hospitaliza 06-03 Taylor tion 12:15: [id number] 00 Medication oral med Meds Active Claudia assistance 06-03 Taylor required 12:15: [id number] 00 Medication injectable Meds Active Claudia med 06-03 Taylor assistance 12:15: [id number] required 00 Medication knowledge/s Meds Active Claudia kill 06-03 Taylor deficit: pt 12:15: [id number] 00 Medication potential Meds Active Claudia clinically 06-03 Taylor significant 12:15: [id number] medication 00 issue Diagnoses knowledge/s Diagnoses Active Claudia kill 06-03 Taylor deficit: cg 12:15: [id number] 00 Musculoskel transfer Musculoske Resolve 2019-07-23 Claudia etal assistance letal d 06-03 09:25:00 Loyd required 12:15: [id number] 00 Musculoskel requires Musculoske Resolve 2019-07-23 Claudia etal human letal d 06-03 09:25:00 Taylor assist to 12:15: [id number] leave home 00 Endo/Jono anti-coagul Endo/Jono Resolve 2019-08-12 Paige ation d 06-06 11:55:00 Regeczi therapy 11:20: [id number] 00 Elimination constipatio Eliminatio Resolve 2019-07-14 Paige n n d 06-06 16:15:00 Regeczi 11:20: [id number] 00 Cardio edema Cardiovasc Resolve 2019-08-12 Veronica ular d 06-09 11:55:00 Sujata 10:30: [id number] 00 Safety can be left Safety Active Veronica alone for 06-09 Sujata only short 10:30: [id number] periods 00 24 Hr Diet nutrition NT: 24Hr Resolve 2019-06-24 Mary intake Diet d 06-10 16:15:00 [place] deficit 15:45: [id number] 00 24 Hr Diet knowledge/s NT: 24Hr Resolve 2019-06-10 Mary kill Diet d 06-10 15:45:00 [place] deficit - 15:45: [id number] pt 00 24 Hr Diet knowledge/s NT: 24Hr Resolve 2019-06-10 Mary kill Diet d 06-10 15:45:00 [place] deficit - 15:45: [id number] cg 00 Nutritional eating NT: Resolve 2019-06-10 Mary Barrier difficultie Barriers d 06-10 15:45:00 [place] s present 15:45: [id number] 00 Nutritional knowledge/s NT: Resolve 2019-06-10 Mary Barrier kill Barriers d 06-10 15:45:00 [place] deficit - 15:45: [id number] pt 00 24 Hr Diet knowledge/s NT: 24Hr Resolve 2019-06-24 Veronica kill Diet d 06-14 16:15:00 Sujata deficit - 10:40: [id number] pt 00 Nutritional swallowing NT: Resolve 2019-06-24 Silas Barrier difficultie Barriers d 06-20 16:15:00 [place] s present 16:00: [id number] 00 Nutritional knowledge/s NT: Resolve 2019-06-24 Silas Barrier kill Barriers d 06-20 16:15:00 [place] deficit - 16:00: [id number] pt 00 Nutritional food NT: Resolve 2019-06-24 Silas Barrier consistency Barriers d 06-20 16:15:00 [place] requirement 16:00: [id number] [address]: Speech Resolve 2019-07-01 Silas production Prod d 06-20 13:30:00 [place] deficit 16:00: [id number] 00 Speech Prod knowledge/s ST: Speech Resolve 2019-07-01 Silas kill Prod d 06-20 13:30:00 [place] deficit - 16:00: [id number] pt [address]: Resolve 2019-07-01 [place] deficit Swallowing d 06-20 13:30:00 [place] 16:00: [id number] [address]: Resolve 2019-07-01 Silas kill Swallowing d 06-20 13:30:00 [place] deficit - 16:00: [id number] pt 00 Social knowledge/s RAMA: Active [facility] kill Social 06-21 [place] deficit - Services 13:00: [id number] pt 00 Social knowledge/s RAMA: Active [facility] kill Social 06-21 [place] deficit - Services 13:00: [id number] cg 00 Respiratory nebulizer Respirator Resolve 2019-08-12 Eufemia treatment y d 06-24 11:55:00 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 14:45: 00 24 Hr Diet knowledge/s NT: 24Hr Resolve 2019-06-24 Mary kill Diet d 06-24 16:15:00 [place] deficit - 16:15: [id number] cg 00 Nutritional swallowing NT: Resolve 2018-092019-08-01 Silas Barrier difficultie Barriers d 0- 11:00:00 [place] s present 14:45: [id number] 00 Nutritional knowledge/s NT: Resolve 2018-092019-08-01 Silas Barrier kill Barriers d 0-01 11:00:00 [place] deficit - 14:45: [id number] pt 00 Nutritional food NT: Resolve 2018-092019-08-01 Silas Barrier consistency Barriers d 0-01 11:00:00 [place] requirement 14:45: [id number] 00 Speech Prod knowledge/s ST: Speech Resolve 2018-092019-08-01 Eufemia kill Prod d 0-07 11:00:00 Carrier RN deficit - 16:30: pt 00 Neuro anxiety Neuro/Emot Active 2018-09 Pagie present ion 0-17 Regeczi 16:15: [id number] 00 Respiratory knowledge/s Respirator Resolve 2018-092019-08-12 Eufemia [...] Unknown 2018-09 [place] deficit 1-12 [place] 15:30: [id number] 00 Neuro depressive Neuro/Emot Active 2018-09 Lori feelings ion -15 Vallely present 11:55: 00 Activity self-care Activity Resolve 2018-092019-08-12 Lori deficit d 1-15 11:55:00 Vallely 11:55: 00 Respiratory dyspnea Respirator Active 2018-09 Veronica present y 10-18 Sujata 10:50: [id number] 00 Endo/Jono anti-coagul Endo/Jono Active 2018-09 Veronica ation - Sujata therapy 10:50: [id number] 00 Elimination urinary Eliminatio Active 2018-09 Veronica incontinenc n - Sujata e 10:50: [id number] 00 Elimination UTI within Eliminatio Active 2018-09 Veronica past 14 n - Sujata days 10:50: [id number] 00 Elimination constipatio Eliminatio Active 2018-09 Veronica n n - Sujata 10:50: [id number] 00 Elimination diarrhea Eliminatio Active 2018-09 Veronica n - Sujata 10:50: [id number] 00 Respiratory oxygen Respirator Active 2018-09 Veronica treatments y 10-26 Sujata in home 11:30: [id number] 00 Cardio pacemaker/I Cardiovasc Active 2018-09 Veronica CD ular 11-03 Sujata 11:48: [id number] 00 Respiratory nebulizer Respirator Active 2018-09 Eufemia treatment y - 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 12:30: 00 Allergies, Adverse Reactions, Alerts Allergy Name Allergy Status Severity Reaction(s) Onset Inactive Treating Comments Type Date Date Clinician cephalexin Base Active Unknown Reaction [place] Ingredient Unknown 2-14 Luis enoxaparin Base Active Unknown Reaction [place] Ingredient Unknown 2-14 Luis dofetilide Base Active Unknown Reaction [place] Ingredient Unknown 2-14 Luis latex Base Active Unknown Reaction [place] Ingredient Unknown 2-14 Luis shellfish Base Active Unknown Reaction [place] derived Ingredient Unknown 2-14 Luis Medications Ordered [...] 3350 (bulk) 3350 (bulk) na powder powder [place] 3-6-9 Means 3-6-9 2018- No Galyanova Unknown Unknown 1,200 [...] 0-14 MD,Genia mg-dha-epa- mg-dha-epa- na other other [id number] h oil 1,000 h oil 1,000 mg [...]
--- OUTSIDE RECORDS SUMMARY | 2019-10-25 16:05 | XMS REPORT ---
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) [employer] terminology [employer] for medical terminology Diagnosis Active Eufemia (current) (current) Carrier RN use of use of anticoagula anticoagula nts nts correction correction Diagnosis Active Eufemia (current) (current) Carrier RN use of use of insulin insulin correction correction Diagnosis Active Eufemia (current) (current) Carrier RN use of use of aspirin aspirin Pain frequent Pain Mgmt Active Claudia pain 06-03 [place] 12:15: [id number] 00 Respiratory lung sounds Respirator Resolve 2019-08-12 Claudia deficit y d 06-03 11:55:00 [place] 12:15: [id number] 00 Respiratory dyspnea Respirator Resolve 2019-08-12 Claudia present y d 06-03 11:55:00 [place] 12:15: [id number] 00 Respiratory oxygen Respirator Resolve 2019-08-12 Claudia treatments y d 06-03 11:55:00 [place] in home 12:15: [id number] 00 Endo/Jono insulin Endo/Jono Active Claudia admn 06-03 [place] dependence 12:15: [id number] 00 Endo/Jono glucose Endo/Jono Active Claudia testing 06-03 [place] dependence 12:15: [id number] 00 Endo/Jono knowledge/s Endo/Jono Resolve 2019-08-12 Claudia kill d 06-03 11:55:00 [place] deficit: pt 12:15: [id number] 00 Endo/Jono knowledge/s Endo/Jono Resolve 2019-08-12 Claudia kill d 06-03 11:55:00 [place] deficit: cg 12:15: [id number] 00 Endo/Jono diabetic Endo/Jono Active Claudia foot care 06-03 [place] 12:15: [id number] 00 Sensory impaired Sensory Resolve 2019-09-08 Claudia hearing d 06-03 12:30:00 [place] 12:15: [id number] 00 Nutrition nutritional Nutrition Resolve 2019-09-08 Claudia restriction d 06-03 12:30:00 Loyd s 12:15: [id number] 00 Elimination urinary Eliminatio Resolve 2019-07-14 Claudia incontinenc n d 06-03 16:15:00 [place] e 12:15: [id number] 00 Elimination UTI within Eliminatio Resolve 2019-07-14 Claudia past 14 n d 06-03 16:15:00 [place] days 12:15: [id number] 00 Neuro confusion Neuro/Emot Resolve 2019-09-08 Claudia present ion d 06-03 12:30:00 [place] 12:15: [id number] 00 Neuro impaired Neuro/Emot Resolve 2019-09-08 Claudia decision-ma ion d 06-03 12:30:00 [facility] 12:15: [id number] 00 Neuro memory Neuro/Emot Resolve 2019-09-08 Claudia deficit ion d 06-03 12:30:00 [place] needing 12:15: [id number] supervision 00 Activity ADL Activity Resolve 2019-09-08 Claudia assistance d 06-03 12:30:00 [place] required 12:15: [id number] 00 Activity self-care Activity Resolve 2019-06-28 Claudia deficit d 06-03 16:15:00 [place] 12:15: [id number] 00 Safety structural Safety Active Claudia barriers 06-03 [place] present 12:15: [id number] 00 Safety cannot be Safety Active Claudia left alone 06-03 [place] 12:15: [id number] 00 Safety fall risk Safety Active Claudia factor 06-03 [place] present 12:15: [id number] 00 Safety risk for Safety Active Claudia hospitaliza 06-03 [place] tion 12:15: [id number] 00 Medication oral med Meds Active Claudia assistance 06-03 [place] required 12:15: [id number] 00 Medication injectable Meds Active Claudia med 06-03 [place] assistance 12:15: [id number] required 00 Medication knowledge/s Meds Active Claudia kill 06-03 [place] deficit: pt 12:15: [id number] 00 Medication potential Meds Active Claudia clinically 06-03 [place] significant 12:15: [id number] medication 00 issue Diagnoses knowledge/s Diagnoses Active Claudia kill 06-03 [place] deficit: cg 12:15: [id number] 00 Musculoskel transfer Musculoske Resolve 2019-07-23 Claudia etal assistance letal d 06-03 09:25:00 [place] required 12:15: [id number] 00 Musculoskel requires Musculoske Resolve 2019-07-23 Claudia etal human letal d 06-03 09:25:00 [place] assist to 12:15: [id number] leave home 00 Endo/Jono anti-coagul Endo/Jono Resolve 2019-08-12 Paige augustin d 06-06 11:55:00 Regeczi therapy 11:20: [id number] 00 Elimination constipatio Eliminatio Resolve 2019-07-14 Paige berman n d 06-06 16:15:00 Regeczi 11:20: [id number] 00 Cardio edema Cardiovasc Resolve 2019-08-12 Veronica guillen d 06-09 11:55:00 Sujata 10:30: [id number] 00 Safety can be left Safety Active Veronica alone for 06-09 Sujata only short 10:30: [id number] periods 00 24 Hr Diet nutrition NT: 24Hr Resolve 2019-06-24 Mary intake Diet d 06-10 16:15:00 [place] deficit 15:45: [id number] 00 24 Hr Diet knowledge/s NT: 24Hr Resolve 2019-06-10 Mary kill Diet d 06-10 15:45:00 [place] deficit - 15:45: [id number] pt 00 24 Hr Diet knowledge/s NT: 24Hr Resolve 2019-06-10 Mary kill Diet d 06-10 15:45:00 [place] deficit - 15:45: [id number] cg 00 Nutritional eating NT: Resolve 2019-06-10 Mary Barrier difficultie Barriers d 06-10 15:45:00 [place] s present 15:45: [id number] 00 Nutritional knowledge/s NT: Resolve 2019-06-10 Mary Barrier kill Barriers d 06-10 15:45:00 [place] deficit - 15:45: [id number] pt 00 24 Hr Diet knowledge/s NT: 24Hr Resolve 2019-06-24 Veronica kill Diet d 06-14 16:15:00 Sujata deficit - 10:40: [id number] pt 00 Nutritional swallowing NT: Resolve 2019-06-24 Silas Barrier difficultie Barriers d 06-20 16:15:00 [place] s present 16:00: [id number] 00 Nutritional knowledge/s NT: Resolve 2019-06-24 Silas Barrier kill Barriers d 06-20 16:15:00 [place] deficit - 16:00: [id number] pt 00 Nutritional food NT: Resolve 2019-06-24 Silas Barrier consistency Barriers d 06-20 16:15:00 [place] requirement 16:00: [id number] [address]: Speech Resolve 2019-07-01 Silas production Prod d 06-20 13:30:00 [place] deficit 16:00: [id number] 00 Speech Prod knowledge/s ST: Speech Resolve 2019-07-01 Silas kill Prod d 06-20 13:30:00 [place] deficit - 16:00: [id number] pt [address]: Resolve 2019-07-01 Silas deficit Swallowing d 06-20 13:30:00 [place] 16:00: [id number] 00 Sw[address]: Resolve 2019-07-01 Silas kill Swallowing d 06-20 13:30:00 [place] deficit - 16:00: [id number] pt 00 Social knowledge/s RAMA: Active [facility] kill Social 06-21 [place] deficit - Services 13:00: [id number] pt 00 Social knowledge/s RAMA: Active [facility] kill Social 06-21 [place] deficit - Services 13:00: [id number] cg 00 Respiratory nebulizer Respirator Resolve 2019-08-12 Eufemia treatment y d 06-24 11:55:00 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 14:45: 00 24 Hr Diet knowledge/s NT: 24Hr Resolve 2019-06-24 Mary kill Diet d 06-24 16:15:00 [place] deficit - 16:15: [id number] cg 00 Nutritional swallowing NT: Resolve 2018-092019-08-01 Silas Barrier difficultie Barriers d 0-01 11:00:00 [place] s present 14:45: [id number] 00 Nutritional knowledge/s NT: Resolve 2018-092019-08-01 Silas Barrier kill Barriers d 0-01 11:00:00 [place] deficit - 14:45: [id number] pt 00 Nutritional food NT: Resolve 2018-092019-08-01 Silas Barrier consistency Barriers d 0-01 11:00:00 [place] requirement 14:45: [id number] 00 Speech Prod knowledge/s ST: Speech Resolve 2018-092019-08-01 Eufemia kill Prod d 0-07 11:00:00 Carrier RN deficit - 16:30: pt 00 Neuro anxiety Neuro/Emot Resolve 2018-092019-09-08 Paige present ion d 0-17 12:30:00 Regeczi 16:15: [id number] 00 Respiratory knowledge/s Respirator Resolve 2018-092019-08-12 Eufemia [...] Unknown 2018-09 [place] deficit 1-12 [place] 15:30: [id number] 00 Neuro depressive Neuro/Emot Resolve 2018-092019-09-08 Lori feelings ion d 1-15 12:30:00 Vallely present 11:55: 00 Activity self-care Activity Resolve 2018-092019-08-12 Lori deficit d 15 11:55:00 [place]le[place] 11:55: 00 Respiratory dyspnea Respirator Active 2018-09 Veronica chavez y 10-18 Sujata 10:50: [id number] 00 Endo/Jono anti-coagul Endo/Jono Resolve 2018-092019-09-08 Veronica augustin d 10-18 12:30:00 Sujata therapy 10:50: [id number] 00 Elimination urinary Eliminatio Active 2018-09 Veronica incontinenc n - Sujata e 10:50: [id number] 00 Elimination UTI within Eliminatio Active 2018-09 Veronica past 14 n - Sujata days 10:50: [id number] 00 Elimination constipatio Eliminatio Active 2018-09 Veronica n n - Sujata 10:50: [id number] 00 Elimination diarrhea Eliminatio Active 2018-09 Veronica n - Sujata 10:50: [id number] 00 Respiratory oxygen Respirator Active 2018-09 Veronica treatments y 10-26 Sujata in home 11:30: [id number] 00 Cardio pacemaker/I Cardiovasc Active 2018-09 Veronica CD ular 11-03 Sujata 11:48: [id number] 00 Respiratory nebulizer Respirator Active 2018-09 Eufemia treatment y 2-10 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 12:25: 00 Allergies, Adverse Reactions, Alerts Allergy Name Allergy Status Severity Reaction(s) Onset Inactive Treating Comments Type Date Date Clinician cephalexin Base Active Unknown Reaction 2018- [place] Ingredient Unknown 2-14 Luis enoxaparin Base Active Unknown Reaction [place] Ingredient Unknown 2-14 Luis dofetilide Base Active Unknown Reaction [place] Ingredient Unknown 2-14 Luis latex Base Active Unknown Reaction [place] Ingredient Unknown 2-14 Luis shellfish Base Active Unknown Reaction [place] derived Ingredient Unknown 2-14 Luis Medications Ordered [...] 3350 (bulk) 3350 (bulk) na powder powder [place] 3-6-9 [place] 3-6-9 2018- No Galyanova Unknown Unknown 1,200 [...] 100 unit/mL (3 unit/mL (3 mL) mL) [facility] Aspirin [...] 0-14 MD,Genia mg-dha-epa- mg-dha-epa- na other other [id number] h oil 1,000 h oil 1,000 mg capsule mg capsule pregabalin pregabalin 2018-09 Yes Galyanova Unknown Unknown 50 mg 50 mg 0-14 10-22 MD,Genia capsule capsule na Lantus Lantus 2018-09- Yes Galyanova Unknown Unknown Solostar Solostar 0-14 10-31 MD,Genia U-100 U-100 na Insulin 100 Insulin 100 unit/mL (3 unit/mL (3 mL) mL) [facility] pen sennosides sennosides [...]
--- OUTSIDE RECORDS SUMMARY | 2019-10-25 16:05 | XMS REPORT ---
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 Diagnosis Active Eufemia (current) (current) Carrier RN use of use of anticoagula anticoagula nts nts group home group home Diagnosis Active Eufemia (current) (current) Carrier RN use of use of insulin insulin group home group home Diagnosis Active Eufemia (current) (current) Carrier RN use of use of aspirin aspirin Pain frequent Pain Mgmt Active Claudia pain 06-03 [place] 12:15: [id number] 00 Respiratory lung sounds Respirator Resolve 2019-08-12 Claudia deficit y d 06-03 11:55:00 [place] 12:15: [id number] 00 Respiratory dyspnea Respirator Resolve 2019-08-12 Claudia present y d 06-03 11:55:00 [place] 12:15: [id number] 00 Respiratory oxygen Respirator Resolve 2019-08-12 Claudia treatments y d 06-03 11:55:00 [place] in home 12:15: [id number] 00 Endo/Jono insulin Endo/Jono Active Claudia admn 06-03 [place] dependence 12:15: [id number] 00 Endo/Jono glucose Endo/Jono Active Claudia testing 06-03 [place] dependence 12:15: [id number] 00 Endo/Jono knowledge/s Endo/Jono Resolve 2019-08-12 Claudia kill d 06-03 11:55:00 [place] deficit: pt 12:15: [id number] 00 Endo/Jono knowledge/s Endo/Jono Resolve 2019-08-12 Claudia kill d 06-03 11:55:00 [place] deficit: cg 12:15: [id number] 00 Endo/Jono diabetic Endo/Jono Active Claudia foot care 06-03 [place] 12:15: [id number] 00 Sensory impaired Sensory Resolve 2019-09-08 Claudia hearing d 06-03 12:30:00 [place] 12:15: [id number] 00 Nutrition nutritional Nutrition Resolve 2019-09-08 Claudia restriction d 06-03 12:30:00 [place] 12:15: [id number] 00 Elimination urinary Eliminatio Resolve 2019-07-14 Claudia incontinenc n d 06-03 16:15:00 [place] e 12:15: [id number] 00 Elimination UTI within Eliminatio Resolve 2019-07-14 Claudia past 14 n d 06-03 16:15:00 [place] days 12:15: [id number] 00 Neuro confusion Neuro/Emot Resolve 2019-09-08 Claudia present ion d 06-03 12:30:00 [place] 12:15: [id number] 00 Neuro impaired Neuro/Emot Resolve 2019-09-08 Claudia decision-ma ion d 06-03 12:30:[address] [facility] 12:15: [id number] 00 Neuro memory Neuro/Emot Resolve 2019-09-08 Claudia deficit ion d 06-03 12:30:00 [place] needing 12:15: [id number] supervision 00 Activity ADL Activity Resolve 2019-09-08 Claudia assistance d 06-03 12:30:00 [place] required 12:15: [id number] 00 Activity self-care Activity Resolve 2019-06-28 Claudia deficit d 06-03 16:15:00 [place] 12:15: [id number] 00 Safety structural Safety Active Claudia barriers 06-03 [place] present 12:15: [id number] 00 Safety cannot be Safety Active Claudia left alone 06-03 [place] 12:15: [id number] 00 Safety fall risk Safety Active Claudia factor 06-03 [place] present 12:15: [id number] 00 Safety risk for Safety Active Claudia hospitaliza 06-03 [place] tion 12:15: [id number] 00 Medication oral med Meds Active Claudia assistance 06-03 [place] required 12:15: [id number] 00 Medication injectable Meds Active Claudia med 06-03 [place] assistance 12:15: [id number] required 00 Medication knowledge/s Meds Active Claudia kill 06-03 [place] deficit: pt 12:15: [id number] 00 Medication potential Meds Active Claudia clinically 06-03 [place] significant 12:15: [id number] medication 00 issue Diagnoses knowledge/s Diagnoses Active Claudia kill 06-03 [place] deficit: cg 12:15: [id number] 00 Musculoskel transfer Musculoske Resolve 2019-07-23 Claudia etal assistance letal d 06-03 09:25:00 [place] required 12:15: [id number] 00 Musculoskel requires Musculoske Resolve 2019-07-23 Claudia etal human letal d 06-03 09:25:00 [place] assist to 12:15: [id number] leave home 00 Endo/Jono anti-coagul Endo/Jono Resolve 2019-08-12 Paige augustin d 06-06 11:55:00 Regeczi therapy 11:20: [id number] 00 Elimination constipatio Eliminatio Resolve 2019-07-14 Paige berman n d 06-06 16:15:00 Rege[place] 11:20: [id number] 00 Cardio edema Cardiovasc Resolve 2019-08-12 Veronica guillen d 06-09 11:55:00 Sujata 10:30: [id number] 00 Safety can be left Safety Active Veronica alone for 06-09 Sujata only short 10:30: [id number] periods 00 24 Hr Diet nutrition NT: 24Hr Resolve 2019-06-24 Mary intake Diet d 06-10 16:15:00 [place] deficit 15:45: [id number] 24 Hr Diet knowledge/s NT: 24Hr Resolve 2019-06-10 Mary kill Diet d 06-10 15:45:00 [place] deficit - 15:45: [id number] pt 00 24 Hr Diet knowledge/s NT: 24Hr Resolve 2019-06-10 Mary kill Diet d 06-10 15:45:00 [place] deficit - 15:45: [id number] cg 00 Nutritional eating NT: Resolve 2019-06-10 Mary Barrier difficultie Barriers d 06-10 15:45:00 [place] s present 15:45: [id number] 00 Nutritional knowledge/s NT: Resolve 2019-06-10 Mary Barrier kill Barriers d 06-10 15:45:00 [place] deficit - 15:45: [id number] pt 00 24 Hr Diet knowledge/s NT: 24Hr Resolve 2019-06-24 Veronica kill Diet d 06-14 16:15:00 Sujata deficit - 10:40: [id number] pt 00 Nutritional swallowing NT: Resolve 2019-06-24 Silas Barrier difficultie Barriers d 06-20 16:15:00 [place] s present 16:00: [id number] 00 Nutritional knowledge/s NT: Resolve 2019-06-24 Silas Barrier kill Barriers d 06-20 16:15:00 [place] deficit - 16:00: [id number] pt 00 Nutritional food NT: Resolve 2019-06-24 Silas Barrier consistency Barriers d 06-20 16:15:00 [place] requirement 16:00: [id number] [address]: Speech Resolve 2019-07-01 Silas production Prod d 06-20 13:30:00 [place] deficit 16:00: [id number] 00 Speech Prod knowledge/s ST: Speech Resolve 2019-07-01 Silas kill Prod d 06-20 13:30:00 [place] deficit - 16:00: [id number] pt [address]: Resolve 2019-07-01 Silas deficit Swallowing d 06-20 13:30:00 [place] 16:00: [id number] 00 Swallowing knowledge/s ST: Resolve 2019-07-01 Silas kill Swallowing d 06-20 13:30:00 [place] deficit - 16:00: [id number] pt 00 Social knowledge/s RAMA: Active [facility] kill Social 06-21 [place] deficit - Services 13:00: [id number] pt 00 Social knowledge/s RAMA: Active [facility] kill Social 06-21 [place] deficit - Services 13:00: [id number] cg 00 Respiratory nebulizer Respirator Resolve 2019-08-12 Eufemia treatment y d 06-24 11:55:00 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 14:45: 00 24 Hr Diet knowledge/s NT: 24Hr Resolve 2019-06-24 Mary kill Diet d 06-24 16:15:00 [place] deficit - 16:15: [id number] cg 00 Nutritional swallowing NT: Resolve 2018-092019-08-01 Silas Barrier difficultie Barriers d 0-01 11:00:00 [place] s present 14:45: [id number] 00 Nutritional knowledge/s NT: Resolve 2018-092019-08-01 Silas Barrier kill Barriers d 0-01 11:00:00 [place] deficit - 14:45: [id number] pt 00 Nutritional food NT: Resolve 2018-092019-08-01 Silas Barrier consistency Barriers d 0-01 11:00:00 [place] requirement 14:45: [id number] 00 Speech Prod knowledge/s ST: Speech Resolve 2018-092019-08-01 Eufemia kill Prod d 0-07 11:00:00 Carrier RN deficit - 16:30: pt 00 Neuro anxiety Neuro/Emot Resolve 2018-092019-09-08 Paige present ion d 0-17 12:30:00 Regeczi 16:15: [id number] 00 Respiratory knowledge/s Respirator Resolve 2018-092019-08-12 Eufemia [...] Unknown 2018-09 [place] deficit 1-12 [place] 15:30: [id number] 00 Neuro depressive Neuro/Emot Resolve 2018-092019-09-08 Lori feelings ion d 1-15 12:30:00 [place]le[place] present 11:55: 00 Activity self-care Activity Resolve 2018-092019-08-12 Lori deficit d 15 11:55:00 [place] 11:55: 00 Respiratory dyspnea Respirator Active 2018-09 Veronica chavez y 10-18 Suj[place] 10:50: [id number] 00 Endo/Jono anti-coagul Endo/Jono Resolve 2018-092019-09-08 Veronica augustin d 10-18 12:30:00 Sujata therapy 10:50: [id number] 00 Elimination urinary Eliminatio Active 2018-09 Veronica incontinenc n - Sujata e 10:50: [id number] 00 Elimination UTI within Eliminatio Active 2018-09 Veronica past 14 n - Sujata days 10:50: [id number] 00 Elimination constipatio Eliminatio Active 2018-09 Veronica n n - Sujata 10:50: [id number] 00 Elimination diarrhea Eliminatio Active 2018-09 Veronica n - Sujata 10:50: [id number] 00 Respiratory oxygen Respirator Active 2018-09 Veronica treatments y 10-26 Sujata in home 11:30: [id number] 00 Cardio pacemaker/I Cardiovasc Active 2018-09 Veronica CD ular 11-03 Sujata 11:48: [id number] 00 Respiratory nebulizer Respirator Active 2018-09 Eufemia treatment y 2-10 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 12:25: 00 Allergies, Adverse Reactions, Alerts Allergy Name Allergy Status Severity Reaction(s) Onset Inactive Treating Comments Type Date Date Clinician cephalexin Base Active Unknown Reaction 2018- [place] Ingredient Unknown 2-14 Luis enoxaparin Base Active Unknown Reaction [place] Ingredient Unknown 2-14 Luis dofetilide Base Active Unknown Reaction [place] Ingredient Unknown 2-14 Luis latex Base Active Unknown Reaction [place] Ingredient Unknown 2-14 Luis shellfish Base Active Unknown Reaction [place] derived Ingredient Unknown 2-14 Luis Medications Ordered [...] (bulk) 3350 (bulk) na powder powder [place] 3-6-9 [place] 3-6-9 2018- No Galyanova Unknown Unknown 1,200 [...] 100 unit/mL (3 unit/mL (3 mL) mL) [facility] Aspirin Low Aspirin [...] 0-14 MD,Genia mg-dha-epa- mg-dha-epa- na other other [id number] h oil 1,000 h oil 1,000 mg capsule mg capsule pregabalin pregabalin 2018-09 Yes Galyanova Unknown Unknown 50 mg 50 mg 0-14 10-22 MD,Genia capsule capsule na Lantus Lantus 2018-09- Yes Galyanova Unknown Unknown Solostar Solostar 0-14 10-31 MD,Genia U-100 U-100 na Insulin 100 Insulin 100 unit/mL (3 unit/mL (3 mL) mL) [facility] pen s pen sennosides sennosides 2018-09 Yes Galyanova Unknown Unknown 8.6 8.6 0-17 MD,Gneia mg-docusate mg-docusate na sodium 50 sodium 50 [...] Observation Time Observation Value Comments SYSTOLIC mm[Hg] 2019-09-14 18:09:25 128 mm[Hg] mm[Hg] Method: Sit SYSTOLIC mm[Hg] 2019-06-17 18:07:56 120 mm[Hg] mm[Hg] Method: Stand DIASTOLIC mm[Hg] 2019-09-14 18:09:25 80 mm[Hg] mm[Hg] Method: Sit DIASTOLIC mm[Hg] 2019-06-17 18:07:56 66 mm[Hg] mm[Hg] Method: Stand PULSE 2019-09-14 18:09:25 70 /min /min RESP RATE 2019-09-14 18:09:25 18 /min /min TEMP 2019-09-14 18:09:25 97.6 [degF] Procedures This patient has no known procedures. Results This patient has no known results.
[2019-10-25] MEDS ORDERED: NS 0.9% 1000 ML** 1,000 ML IV ONE (16:34)
--- NOTE | 2019-10-25 16:34 | ED ---
Neurological HPI - HPI Summary HPI Summary: Patient is a 79 y/o F presenting to the ED for a chief complaint of neurologic deficit. While having lunch around 12:00 on 10/25/19, patient felt nauseous and suddenly felt pain and paresthesia in the left toes that radiated up to her left hip and hand. On triage, the patient rates the pain as a 5/10 in severity and describes the pain as an aching sensation. The paresthesia lasted for 30 minutes before resolving. Currently, the patient complains of a headache and dizziness. She denies chest pain or balance problems. PMHx is significant for TIA with residual left-sided weakness and COPD for which she uses oxygen. Patient takes Xarelto. - History of Current Complaint Chief Complaint: EDNeurologicalDeficit Stated Complaint: HEADACHE/LEFT SIDE NUMBNESS AND TINGLING PER EMS Time Seen by Provider: 10/25/19 16:06 Hx Obtained From: Patient Onset/Duration: Sudden Onset, Resolved Timing: Sudden Onset Onset Severity: Moderate Current Severity: Moderate Neurological Deficit Location: LUE, LLE Pain Intensity: 5 Pain Scale Used: 0-10 Numeric Character: Dizzy, Paresthesia - Left UE and left LE, specifically the left toes , hip, and hand. Aggravating: Nothing Alleviating: Nothing Associated Signs and Symptoms: Positive: Headache, Dizziness, Pain - Left UE and left LE, specifically the left toes, hip, and hand. TPA Considered: No - ON ANTICOAGULANT THERAPY, XARELTO Related Hx: Anticoagulants - Additional Pertinent History Primary Care Physician: SINCERE - Allergy/Home Medications Allergies/Adverse Reactions: Allergies Allergy/AdvReac Type Severity Reaction Status Date / Time latex Allergy Swelling Verified 07/15/19 15:10 shellfish derived Allergy Swelling Verified 07/15/19 15:10 Of Face,Lips,& Throat cephalexin [From Keflex] AdvReac Mild Facial Verified 07/15/19 15:10 Redness/Flushing dofetilide [From Tikosyn] AdvReac Palpitation Verified 07/15/19 15:10 s enoxaparin [From Lovenox] AdvReac "blood too Verified 07/15/19 15:10 thin" NO MRIs - [facility] Allergy Severe NO MRIs - Uncoded 07/15/19 15:10 [facility] Home Medications: Home Medications Albuterol 2.5MG/3ML (0.083%)* [Ventolin 2.5 MG/3 ML NEB.HAMIDA*] 2.5 mg INH Q4H PRN 10/25/19 [History Confirmed 10/25/19] Diclofenac 1% GEL (NF) [Voltaren 1% GEL (NF)] 1 applic TOPICAL TID PRN 10/25/19 [History Confirmed 10/25/19] Insulin Glargine (Nf) [Toujeo Solostar Pen 300 units/ml 1.5 ml x 3 Pens (NF)] 75 units SUBCUT BID 10/25/19 [History Confirmed 10/25/19] Lixisenatide [Adlyxin] 10 mcg SUBCUT DAILY 10/25/19 [History Confirmed 10/25/19] Metolazone TAB* [Zaroxolyn TAB*] 2.5 mg PO DAILY PRN 10/25/19 [History Confirmed 10/25/19] PMH/Surg Hx/FS Hx/Imm Hx Previously Healthy: Yes Endocrine/Hematology History: Reports: Hx Anticoagulant Therapy, Hx Blood Transfusions, Hx Diabetes, Hx Anemia, Other Endocrine/Hematological Disorders Cardiovascular History: Reports: Hx Angina, Hx Atrial Fibrillation, Hx Auto Implanted Cardiovert Defib, Hx Cardiomegaly, Hx Congestive Heart Failure, Hx Coronary Artery Disease, Hx Hypercholesterolemia, Hx Hypertension, Hx Myocardial Infarction, Hx Pacemaker/ICD, Hx Syncope Denies: Hx Aneurysm, Hx Angioplasty, Hx Cardiac Arrest, Hx Valvular Heart Disease Respiratory History: Reports: Hx Asthma, Hx Chronic Obstructive Pulmonary Disease (COPD) - pt reports 2L O2 via [place] prn at home, Hx Pleural Effusion, Hx Pulmonary Edema, Hx Sleep Apnea, Other Respiratory Problems/Disorders - bronchitis, 2nd hand smoke exposure, pulmonary fibrosis GI History: Reports: Hx Diverticulosis, Hx Gall Bladder Disease, Hx Gastroesophageal Reflux Disease, Hx Irritable Bowel, Hx Obstructive Bowel, Other GI Disorders - Enlarged liver, polyps History: Reports: Hx Chronic Renal Failure, Hx Kidney Stones Denies: Hx Renal Disease Musculoskeletal History: Reports: Hx Arthritis, Hx Back Problems, Hx Gout Denies: Hx Osteoporosis Sensory History: Reports: Hx Cataracts, Hx Contacts or Glasses, Hx Vision Problem - blurry, Other Sensory Impairments - Neuropathy Denies: Hx Eye Injury, Hx Eye Prosthesis, Hx Glaucoma, Hx Legally Blind, Hx Macular Degeneration, Hx Deafness, Hx Hearing Aid Opthamlomology History: Reports: Hx Cataracts, Hx Contacts or Glasses, Hx Vision Problem - blurry, Other Sensory Impairments - Neuropathy Denies: Hx Eye Injury, Hx Eye Prosthesis, Hx Glaucoma, Hx Legally Blind, Hx Macular Degeneration EENT History: Denies: Hx Deafness Neurological History: Reports: Hx Peripheral Neuropathy, Hx Transient Ischemic Attacks (TIA) Denies: Hx Dementia, Hx Developmental Delay, Hx Headaches, Hx Migraine, Hx Nerve Disease, Hx Seizures, Hx Spinal Cord Injury, Other Neuro Impairments/ Disorders Psychiatric History: Reports: Hx Anxiety, Hx Depression - Surgical History Surgical History: Yes Surgery Procedure, Year, and Place: Cholecystectomy 29 years ago. Appy 29 years ago. HYSTERECTOMY 29 years ago. Pacemaker placement 2009 Hx Anesthesia Reactions: No - Immunization History Date of Tetanus Vaccine: Unk Date of Influenza Vaccine: Fall 2014 Infectious Disease History: No Infectious Disease History: Denies: Hx Clostridium Difficile, Hx Hepatitis, Hx Human Immunodeficiency Virus (HIV), Hx of Known/Suspected MRSA, Hx Shingles, Hx Tuberculosis, Hx Known/ Suspected VRE, Hx Known/Suspected VRSA, History Other Infectious Disease, Traveled Outside the [place] in Last 30 Days - Family History Known Family History: Positive: Cardiac Disease - Brother with HI at age 34 - Social History Occupation: Retired Alcohol Use: None Hx Substance Use: Yes Substance Use Type: Reports: Other Substance Use Comment - Amount & Last Used: tramadol; oxycodone Hx Tobacco Use: No Smoking Status (MU): Never Smoked Tobacco Have You Smoked in the Last Year: No Review of Systems Negative: Chest Pain Positive: Myalgia - Left UE and left LE, specifically the left toes, hip, and hand. Neurological: Other - Positive dizziness; negative balance problems Positive: Headache, Paresthesia - Left UE and left LE, specifically the left toes, hip, and hand. All Other Systems Reviewed And Are Negative: Yes Physical Exam - Summary Physical Exam Summary: Constitutional: Well-developed, Obese, Alert. (-) Distressed Skin: Warm, Dry HENT: Normocephalic; Atraumatic Eyes: Conjunctiva normal Neck: Musculoskeletal ROM normal neck. (-) JVD, (-) Nuchal rigidity Cardio: Rhythm regular, rate normal, Heart sounds normal; Intact distal pulses; Radial pulses are 2+ and symmetric. (-) Murmur Pulmonary/Chest wall: Effort normal. (-) Respiratory distress, (-) Wheezes, (-) Rales. Pacemaker in the chest wall. Abd: Soft. (-) Tenderness, (-) Distension, (-) Guarding, (-) Rebound Musculoskeletal: (-) Edema Lymph: (-) Cervical adenopathy Neuro: Alert, PERRL, Oriented x3, Strength normal, Cranial nerves II-XII are grossly intact. SILT, Strength 5/5 BUE and BLE, (-) Nystagmus, ambulates with steady gait. Left-sided dysmetria. NIH Stroke Scale: 2. Psych: Mood and affect Normal Triage Information Reviewed: Yes Vital Signs On Initial Exam: Initial Vitals Temp Pulse Resp BP Pulse Ox 98.1 F 75 16 126/67 97 10/25/19 15:57 10/25/19 15:57 10/25/19 15:57 10/25/19 15:57 10/25/19 15:57 Vital Signs Reviewed: Yes - [place] Coma Scale Best Eye Response: 4 - Spontaneous Best Motor Response: 6 - Obeys Commands Best Verbal Response: 5 - Oriented Coma Scale Total: 15 Procedures - Sedation Patient Received Moderate/Deep Sedation with Procedure: No Diagnostics - Vital Signs Vital Signs Temp Pulse Resp BP Pulse Ox 10/25/19 15:57 98.1 F 75 16 126/67 97 - Laboratory Result Diagrams: 10/25/19 16:33 10/25/19 16:33 Lab Statement: Any lab studies that have been ordered have been reviewed, and results considered in the medical decision making process. - Radiology Chest X-ray Radiology Interpretation Completed By: Radiologist Summary of Radiographic Findings: Chest X-ray IMPRESSION: 1. No acute cardiopulmonary process by radiograph. 2. Unchanged cardiomegaly with a pacemaker in place. Reviewed by Dr. Hector. - CT Brain CT CT Interpretation Completed By: Radiologist Summary of CT Findings: Brain CT IMPRESSION: NO EVIDENCE FOR GROSS ACUTE INFARCT , MASS EFFECT OR HEMORRHAGE. Reviewed by Dr. Hector. - EKG 17:28 Cardiac Rate: Other Rate - [address] Segment: Normal Ectopy: None Summary of EKG Findings: An EKG at 17:28 reveals AV-paced rhythm with 75 BPM, nml axis, nml intervals. No STEMI. No acute changes. No significant change from prior. ED physician has reviewed and interpreted this EKG. 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 Non-Paretic Hand: Both Correctly Best Gaze (Only Horizontal Eye Movement): Normal Visual Field Testing: No Visual Loss Facial Paresis-Pt to Smile & Close Eyes or Grimace Symmetry: Normal/Symmetrical Motor Function - Right Arm: No Drift-Holds 10 Seconds Motor Function - Left Arm: No Drift-Holds 10 Seconds Motor Function - Right Leg: No Drift-Holds 10 Seconds Motor Function - Left Leg: No Drift-Holds 10 Seconds Limb Ataxia-Must be out of Proportion to Weakness Present: Present in One Limb Sensory (Use Pinprick to Test Arms/Legs/Trunk/Face): Pinprick Less on Affected Best Language (Describe Picture, Name Items): No Aphasia Dysarthria (Read Several Words): Normal Extinction and Inattention: No Abnormality Total Score: 2 Re-Evaluation - Re-Evaluation First Eval Re-Evaluation Time: 18:14 Change: Improved Comment: At 18:14, patient was able to ambulate and will be started on Plavix. Course/Dx - Course Course Of Treatment: 79 y/o F w hx TIA/stroke w L sided paresthesias, COPD on home oxygen, presenting with left leg and left arm paresthesias. - An ache stroke scale of 2. Copious called given reported symptom onset approximately [address] head noncontrast was obtained does not show any acute findings. Discussed with neurology, Dr. Amezquita who recommends patient be started on Plavix and stop aspirin. Patient is unable to get CTA imaging secondary to creatinine, and MRI secondary to her pacemaker. Patient to be medically managed , follow up w neurology outpatient. Continue eliquis per neuro. At time discharge, no paresthesias, ambulating well. - Diagnoses Provider Diagnoses: Paresthesias, Dysmetria During the Visit The Following Alert/Code Occurred: Code Berg - CODE BERG CALLED AT 16:35 IN THE ED, ROOM 19. DR. HECTOR AT BEDSIDE AT 16:29. PATIENT IS ON BLOOD THINNERS, XARELTO. PATIENT IS TAKEN TO THE CT SUITE AT 16:35. AT 16: 36, DR. BIA WAS MADE AWARE OF THE PATIENT AND WILL ASSESS AFTER PATIENT RETURNS FROM THE CT SUITE. PATIENT IS NOT A CANDIDATE FOR TPA DUE TO BEING ON ANTICOAGULANT THERAPY, XARELTO. AT 16:55, DR. MADRID REPORTS PRELIMINARY FINDINGS OF NEGATIVE BRAIN CT. AT 17:57, DR. AMEZQUITA STATES THAT IF THE PATIENT IS ON ASPIRIN, SHE SHOULD BE SWITCHED TO PLAVIX. - Physician Notifications Discussed Care Of Patient With: Jorgito Amezquita - AT 17:57, DR. AMEZQUITA STATES THAT IF THE PATIENT IS ON ASPIRIN, SHE SHOULD BE SWITCHED TO PLAVIX. Time Discussed With Above Provider: 17:57 Discharge ED - Sign-Out/Discharge Documenting (check all that apply): Patient Departure - Discharge - Discharge Plan Condition: Stable Disposition: HOME Prescriptions: Clopidogrel TAB* [Plavix TAB*] 75 mg PO DAILY 30 Days #30 tab Patient Education Materials: Transient Ischemic Attack (ED), Paresthesia (ED) Referrals: January Lopez MD [Primary Care Provider] - Jorgito Amezquita MD [Medical Doctor] - Additional Instructions: You were seen in the emergency department for paresthesias. Your CT scan did not show any new strokes. Please stop taking aspirin and start taking Plavix 75 mg every day. Please follow up with neurology. Please follow up with your primary care doctor in next 2-3 days and return to emergency department for numbness or weakness, severe headaches, inability to walk, worsening, or concerning symptoms. It was a pleasure taking care of you today. - Billing Disposition and Condition Condition: STABLE Disposition: Home - Attestation Statements Document Initiated by Brittni: Yes Documenting Scribe: Haleigh Rodriguez Provider For Whom Brittni is Documenting (Include Credential): Poly Hector MD Scribe Attestation: Haleigh Norwood, scribed for Poly Hector MD on 10/25/19 at 3838. Scribe Documentation Reviewed: Yes Provider Attestation: The documentation as recorded by the Haleigh irvin accurately reflects the service I personally performed and the decisions made by me, Poly Hector MD Status of Scribe Document: Viewed
[2019-10-25 16:51] LABS: Hematocrit 37 % (35-47); Mean Corpuscular HGB Conc 33 g/dL (31-36); Mean Corpuscular Hemoglobin 28 pg (27-31); Mean Corpuscular Volume 84 fL (80-97); Mean Platelet Volume 9.2 fL (7.4-10.4); Platelet Count 143 10^3/uL (150-450); Red Blood Count 4.35 10^6 /uL (3.70-4.87); Red Cell Distribution Width 19 % (10-15); White Blood Count 11.3 10^3/uL (3.5-10.8)
[2019-10-25 17:02] LABS: Activated Partial Thrombo Time 38.3 seconds (26.0-38.0); INR 1.23 (0.82-1.09)
[2019-10-25 17:12] LABS: ABS Basophils 0.1 10^3/ul (0-0.2); ABS Eosinophils 0.2 10^3/ul (0-0.6); ABS Lymphocytes 2.9 10^3/ul (1.0-4.8); ABS Monocytes 2.3 10^3/ul (0-0.8); ABS Neutrophils 5.7 10^3/ul (1.5-7.7); Eosinophil % 1.8 %; Lymphocyte % 26.2 %; Nucleated Red Blood Cells % 0.3
[2019-10-25 17:24] LABS: Albumin/Globulin Ratio 1.1 (1-3); BUN/Creatinine Ratio 22.3 (8-20); Calcium 10.1 mg/dL (8.6-10.3); EGFR African American 29.7 (>60); EGFR Non-African American 24.6 (>60); Globulin 3.5 g/dL (2-4); HDL Cholesterol 26.8 mg/dL; Potassium 4.1 mmol/L (3.5-5.0); Total Bilirubin 0.4 mg/dL (0.2-1.0); Total Protein 7.5 g/dL (6.4-8.9)
[2019-10-25] MEDS ORDERED: Acetaminophen TAB* 325 MG PO ONE (17:53)
[2019-10-25] MEDS ORDERED: Clopidogrel TAB* 75 MG PO ONE (18:14)
[2019-10-25 18:22] LABS: Urine Appearance Clear; Urine Bilirubin Negative (Negative); Urine Blood Negative (Negative); Urine Color Straw; Urine Glucose Negative (Negative); Urine Ketones Negative (Negative); Urine Nitrite Negative (Negative); Urine Protein Negative (Negative); Urine Specific Gravity 1.005 (1.010-1.030); Urine Urobilinogen Negative (Negative)
--- NOTE | 2019-10-25 19:04 | CONS ---
CC: Dr. Lopez * NEUROLOGY CONSULTATION: DATE OF CONSULT: 10/25/19 LOCATION: She is in the emergency room. REFERRING PROVIDER: Dr. Hector. CHIEF COMPLAINT: Left-sided numbness, headache. HISTORY OF PRESENT ILLNESS: Emi Forte is a 79-year-old woman known to me from a prior evaluation in April of 2019. She presented at that time with double vision, headache, and left-sided numbness. She had another episode, which was a very similar, if not identical, the following month and saw Dr. Goncalves in consultation. Today, she was in her usual state of health at about 11 o'clock when her daughter saw her. Visiting nurse service came at 1:30 and noted that she had left facial weakness. It was decided to bring her into the emergency room sometime after that. The patient reports that around 1 o'clock she noted that her left side was numb. She noted numbness of the arm and leg but not clearly of the face. She felt that she had a dull headache and she noted some blurry vision. She may have actually had double vision briefly but it resolved. In the emergency room, she still has a dull headache but no visual changes. She has not been noted to have any facial weakness, but she still feels like her left side is numb, particularly her leg. She did not feel that there is any numbness on the right side. She has a history of chronic atrial fibrillation and had been on warfarin when I saw her in April of 2019 and that was switched to Xarelto. When she presented again in May, she was switched to apixaban and remains on it currently. She has chronic renal insufficiency and has not been able to have CT angiograms. PAST MEDICAL HISTORY: Notable for insulin-dependent diabetes; coronary artery disease, with a history of SC; ischemic cardiomyopathy; COPD; chronic atrial fibrillation; stage 4 kidney disease; depression; sleep apnea, on CPAP; irritable bowel syndrome; peripheral neuropathy, felt to be from diabetes. PAST SURGICAL HISTORY: Includes appendectomy, hysterectomy, cholecystectomy, and permanent pacemaker since 2009. MEDICATIONS: At home consist of: 1. Torsemide 60 mg every other day. 2. Spironolactone 50 mg every day. 3. Requip 0.25 mg q.h.s. 4. Lyrica 100 mg p.o. q.a.m. and 150 mg q.h.s. 5. Pravastatin 80 mg daily. 6. Metoprolol XL 100 mg p.o. b.i.d. 7. Metolazone 2.5 mg p.o. p.r.n. 8. Insulin. 9. Hydrocodone/acetaminophen 10/325 one q.6 hours as needed for pain. 10. Vitamin B12 500 mcg p.o. daily. 11. Vitamin D. 12. Eliquis. 13. Aspirin 81 mg p.o. daily. 14. Inhalers. ALLERGIES: She is allergic to CEPHALEXIN and ENOXAPARIN. SOCIAL HISTORY: She lives with family. She does not smoke. REVIEW OF SYSTEMS: Negative for headaches as a younger woman. She has not had any recent falls. No recent infections. PHYSICAL EXAM: She is an obese woman, lying in the emergency room stretcher. Temperature 98.1, blood pressure 126/67, heart rate in the 70s and irregularly irregular. I do not hear any murmurs. There are no cervical bruits. Oral mucosa is moist and there is no oral trauma. Neck is supple. Neurological Exam: Pupils react equally from 3 to 2 mm. Eye movements are normal. Visual saab are full to confrontation. Funduscopic exam is unremarkable. Facial musculature is symmetric. Facial sensation is reported as diminished to light touch and pin on the left side relative to the right. Tongue protrudes in the midline and palate rises symmetrically. There is no dysarthria. Hearing is intact. Motor exam reveals normal strength in all limbs. There is no drift of the limbs other than some oscillation when trying to hold the left leg up. It does not truly drift, however. There is no rest tremor. Finger taps are clumsy in the left hand relative to the right. Sensory exam is notable for diminished to light touch and pin discrimination in the left arm and leg relative to the right. Reflexes are trace, plantars are flexor bilaterally. I did not attempt to ambulate her. She is alert and oriented and a reasonably good historian with intact memory. Language is fluent. DIAGNOSTIC STUDIES/LAB DATA: Notable for a CT scan of the brain interpreted as prominent dural calcifications, but no evidence of hemorrhage or infarcts. I reviewed the images and I agree. Laboratory studies so far notable for CBC with a white blood cell count borderline elevated at 11.3, platelet count borderline low at 143,000. Her chemistries are still pending. Her [id number] glucose was 159. IMPRESSION AND PLAN: Impression is that of a possible recurrent transient ischemic attack or possible stroke. Her exam is really pretty similar as it was the last couple of times other than the persistent sensory deficits. She cannot have an MRI because of her pacemaker and at least previously her renal function was at a point where CT angiography was not considered to be safe. Currently, her NIH Score is 2 if one includes the oscillation of the left leg as a drift. Therefore, I do not think she is an embolectomy candidate even though we cannot get a CTA. I will await the results of her labs and see if her renal function has by some unexpected turn improved. If not, then I will reaffirm that she is taking aspirin in addition to her apixaban and consider a possible switch to Plavix at least for 21 days. Currently, her blood pressure is adequate. She is on a statin. She is a nonsmoker. I will discuss my impression with Dr. Hector. [id number]/[facility] #: [id number] [place]
[2019-10-25 19:30] VITALS: BP 135/69
== END 2019-10-25 19:26 | disposition home or self-care (01) ==
LOC: ED 15:55
DX: R20.2 Paresthesia of skin (principal); R27.8 Other lack of coordination; R11.0 Nausea; R51 Headache; R29.702 NIHSS score 2; E11.22 Type 2 diabetes mellitus with diabetic chronic kidney disease; I13.0 Hypertensive heart and chronic kidney disease with heart failure and stage 1 through stage 4 chronic kidney disease, or unspecified chronic kidney disease; N18.4 Chronic kidney disease, stage 4 (severe); Z79.4 Long term (current) use of insulin; I69.954 Hemiplegia and hemiparesis following unspecified cerebrovascular disease affecting left non-dominant side; J44.9 Chronic obstructive pulmonary disease, unspecified; Z99.81 Dependence on supplemental oxygen; Z79.01 Long term (current) use of anticoagulants; Z95.810 Presence of automatic (implantable) cardiac defibrillator; Z88.2 Allergy status to sulfonamides; Z88.8 Allergy status to other drugs, medicaments and biological substances; Z88.1 Allergy status to other antibiotic agents; Z91.040 Latex allergy status
CPT/HCPCS: 36415; 70450; 71045; 80053; 80061; 81003; 83605; 83721; 84484; 85025; 85610; 85730; 93005; 96360; 99285; A9270-GY

== ENCOUNTER 2020-06-27 10:04 | Observation (INO) ==
[2020-06-27 11:06] LABS: Hematocrit 31 % (35-47); Mean Corpuscular HGB Conc 32 g/dL (31-36); Mean Corpuscular Hemoglobin 26 pg (27-31); Mean Corpuscular Volume 80 fL (80-97); Mean Platelet Volume 8.8 fL (7.4-10.4); Platelet Count 130 10^3/uL (150-450); Red Blood Count 3.91 10^6 /uL (3.70-4.87); Red Cell Distribution Width 24 % (10-15); White Blood Count 14.3 10^3/uL (3.5-10.8)
[2020-06-27 11:10] LABS: INR 1.62 (0.82-1.09)
[2020-06-27 11:11] LABS: Troponin I 0.01 ng/mL (<0.03)
[2020-06-27 11:17] LABS: ALT 8 U/L (7-52); AST 14 U/L (13-39); Albumin/Globulin Ratio 1.1 (1-3); Alkaline Phosphatase 62 U/L (34-104); Anion Gap 7 mmol/L (2-11); BUN/Creatinine Ratio 15.6 (8-20); Blood Urea Nitrogen 37 mg/dL (6-24); CO2 Carbon Dioxide 32 mmol/L (22-32); Calcium 9.1 mg/dL (8.6-10.3); Chloride 102 mmol/L (101-111); EGFR Non-African American 19.9 (>60); Globulin 3.7 g/dL (2-4); Glucose 115 mg/dL (70-100); Potassium 4.1 mmol/L (3.5-5.0); Sodium 141 mmol/L (135-145); Total Protein 7.7 g/dL (6.4-8.9)
[2020-06-27 11:58] LABS: ABS Basophils 0.2 10^3/ul (0-0.2); ABS Eosinophils 0.3 10^3/ul (0-0.6); ABS Lymphocytes 2.8 10^3/ul (1.0-4.8); ABS Monocytes 3.4 10^3/ul (0-0.8); ABS Neutrophils 7.6 10^3/ul (1.5-7.7); Eosinophil % 1.9 %; Lymphocyte % 19.8 %; Nucleated Red Blood Cells % 0.2
[2020-06-27] MEDS ORDERED: Ondansetron 4 mg VIAL 2 MG/ML 2 ml VIAL IV ONE (13:29)
[2020-06-27] MEDS ORDERED: HYDROcodone/ACETAMIN 5/325 mg TAB PO ONE (13:37)
[2020-06-27] MEDS ORDERED: Albuterol 2.5mg/3 ml (0.083%) NEB.SOLN INH PRN (14:42)
[2020-06-27] MEDS ORDERED: Dextrose 50% Syringe 50 ml 25 GM/50 ML SYRINGE IV PUSH PRN (15:03)
[2020-06-27] MEDS ORDERED: Albuterol HFA INHALER 8 gm MDI INH PRN (16:05)
[2020-06-27 16:07] LABS: Urine Appearance Clear; Urine Bilirubin Negative (Negative); Urine Blood Negative (Negative); Urine Color Straw; Urine Glucose Negative (Negative); Urine Ketones Negative (Negative); Urine Nitrite Negative (Negative); Urine Protein Negative (Negative); Urine Specific Gravity 1.006 (1.010-1.030); Urine Urobilinogen Negative (Negative)
[2020-06-27 17:12] LABS: % Iron Saturation 12 % (15-55); Iron 46 ug/dL (50-212); Total Iron Binding Capacity 378 mcg/dL (250-450); Transferrin 270 mg/dL (203-362); Unsaturated Iron Binding < 363 ug/dL
[2020-06-27 17:14] LABS: Ferritin 29.5 ng/mL (11-307)
[2020-06-27 17:21] LABS: Folate 15.36 ng/mL (>3.99)
[2020-06-27 17:22] LABS: Vitamin B12 789 pg/mL (180-914)
[2020-06-27] MEDS: Potassium Chloride LIQUID 20 MEQ/15 ML LIQUID PO SCH (21:17)
[2020-06-27] MEDS: Insulin GLARGINE 100 un/ml 10 ml VIAL SUBCUT SCH (21:17)
[2020-06-28 06:40] LABS: Hematocrit 31 % (35-47); Hemoglobin 9.9 g/dL (12.0-16.0); Mean Corpuscular HGB Conc 33 g/dL (31-36); Mean Corpuscular Hemoglobin 26 pg (27-31); Mean Corpuscular Volume 79 fL (80-97); Mean Platelet Volume 9.1 fL (7.4-10.4); Platelet Count 126 10^3/uL (150-450); Red Blood Count 3.84 10^6 /uL (3.70-4.87); Red Cell Distribution Width 24 % (10-15); White Blood Count 12.4 10^3/uL (3.5-10.8)
[2020-06-28 07:07] LABS: BUN/Creatinine Ratio 15.4 (8-20); Calcium 8.8 mg/dL (8.6-10.3); Potassium 4.4 mmol/L (3.5-5.0)
[2020-06-28 07:49] LABS: ABS Basophils 0.2 10^3/ul (0-0.2); ABS Eosinophils 0.3 10^3/ul (0-0.6); ABS Lymphocytes 2.1 10^3/ul (1.0-4.8); ABS Monocytes 3.1 10^3/ul (0-0.8); ABS Neutrophils 6.6 10^3/ul (1.5-7.7); Eosinophil % 2.4 %; Nucleated Red Blood Cells % 0.1
[2020-06-28] MEDS: Cholecalciferol (VIT D3) 1,000 unit TAB PO SCH (08:01)
[2020-06-28] MEDS: Insulin GLARGINE 100 un/ml 10 ml VIAL SUBCUT SCH ×2 (08:05→19:48)
[2020-06-28] MEDS: Polyethylene Glycol 3350 17 GM PACKET PO SCH (08:05)
[2020-06-28] MEDS: Fluticasone NASAL SPRAY 50MCG 16 gm SPRAY BTL BOTH NARES SCH (08:05)
[2020-06-28] MEDS: Potassium Chloride LIQUID 20 MEQ/15 ML LIQUID PO SCH ×2 (08:06→19:35)
[2020-06-28] MEDS: Mometasone/Formoter 100/5 MDI INH SCH ×2 (08:07→19:25)
[2020-06-28] MEDS: SPIRIVA Respimat (tiotropium) 2.5 mcg/inh Inhaler INH SCH (08:07)
[2020-06-28] MEDS ORDERED: Aminophylline 25 MG/ML VIAL ONE (12:58)
[2020-06-28] MEDS ORDERED: Regadenoson 0.4 MG/5 ML SYRINGE ONE (12:58)
[2020-06-28 18:09] LABS: C Reactive Protein 11.03 mg/L (<8.01)
[2020-06-29 07:23] LABS: ABS Basophils 0.2 10^3/ul (0-0.2); ABS Eosinophils 0.4 10^3/ul (0-0.6); ABS Lymphocytes 2.4 10^3/ul (1.0-4.8); ABS Monocytes 2.8 10^3/ul (0-0.8); ABS Neutrophils 7.4 10^3/ul (1.5-7.7); Eosinophil % 2.7 %; Hematocrit 30 % (35-47); Hemoglobin 9.8 g/dL (12.0-16.0); Mean Corpuscular HGB Conc 33 g/dL (31-36); Mean Corpuscular Hemoglobin 26 pg (27-31); Mean Corpuscular Volume 79 fL (80-97); Nucleated Red Blood Cells % 0.3; Platelet Count 128 10^3/uL (150-450); Red Cell Distribution Width 24 % (10-15); White Blood Count 13.1 10^3/uL (3.5-10.8)
[2020-06-29 07:33] LABS: Albumin 3.8 g/dL (3.2-5.2); Albumin/Globulin Ratio 1.1 (1-3); Calcium 9.1 mg/dL (8.6-10.3); EGFR African American 28.3 (>60); EGFR Non-African American 23.3 (>60); Globulin 3.5 g/dL (2-4); Magnesium 2.8 mg/dL (1.9-2.7); Potassium 4.2 mmol/L (3.5-5.0); Total Bilirubin 0.4 mg/dL (0.2-1.0); Total Protein 7.3 g/dL (6.4-8.9)
[2020-06-29] MEDS: Mometasone/Formoter 100/5 MDI INH SCH (07:58)
[2020-06-29] MEDS: SPIRIVA Respimat (tiotropium) 2.5 mcg/inh Inhaler INH SCH (07:58)
[2020-06-29] MEDS: Insulin GLARGINE 100 un/ml 10 ml VIAL SUBCUT SCH (07:59)
[2020-06-29] MEDS: Polyethylene Glycol 3350 17 GM PACKET PO SCH (09:11)
[2020-06-29] MEDS: Potassium Chloride LIQUID 20 MEQ/15 ML LIQUID PO SCH (09:11)
[2020-06-29] MEDS: Cholecalciferol (VIT D3) 1,000 unit TAB PO SCH (09:12)
[2020-06-29] MEDS: Fluticasone NASAL SPRAY 50MCG 16 gm SPRAY BTL BOTH NARES SCH (09:14)
[2020-06-29 11:23] LABS: Hepatitis B Surface Antigen Nonreactive (Nonreactive)
[2020-06-29 11:41] LABS: Hepatitis B Surface Ab Not Immune (Immune)
[2020-06-29 11:53] VITALS: BP 151/83
== END 2020-06-29 14:18 | disposition home or self-care (01) ==
LOC: ED 10:04 → MEDTELE 10:04
PROVIDERS: ADMIT Internal Medicine; ATTEND Internal Medicine

== ENCOUNTER 2021-01-19 23:56 | Inpatient (IN) ==
[2021-01-20 00:28] LABS: Hematocrit 34 % (35-47); Hemoglobin 10.2 g/dL (12.0-16.0); Mean Corpuscular HGB Conc 31 g/dL (31-36); Mean Corpuscular Hemoglobin 25 pg (27-31); Mean Corpuscular Volume 81 fL (80-97); Platelet Count 155 10^3/uL (150-450); Red Blood Count 4.15 10^6 /uL (3.70-4.87); White Blood Count 24.6 10^3/uL (3.5-10.8)
[2021-01-20 00:37] LABS: Albumin 4.3 g/dL (3.2-5.2); Albumin/Globulin Ratio 1.2 (1-3); C Reactive Protein 28.9 mg/L (<8.01); Calcium 9.4 mg/dL (8.6-10.3); EGFR African American 22.6 (>60); EGFR Non-African American 18.7 (>60); Globulin 3.7 g/dL (2-4); Potassium 4.8 mmol/L (3.5-5.0); Total Bilirubin 0.4 mg/dL (0.2-1.0)
[2021-01-20 00:38] LABS: INR 1.46 (0.82-1.09)
[2021-01-20 00:41] LABS: Troponin I 0.01 ng/mL (<0.03)
[2021-01-20 00:57] LABS: ABS Basophils 0.1 10^3/ul (0-0.2); ABS Eosinophils 0.9 10^3/ul (0-0.6); ABS Lymphocytes 3.6 10^3/ul (1.0-4.8); ABS Monocytes 4.8 10^3/ul (0-0.8); ABS Neutrophils 15.3 10^3/ul (1.5-7.7); ABS Nucleated RBC 0.1 10^3/ul; Eosinophil % 3.6 %; Lymphocyte % 14.6 %; Nucleated Red Blood Cells % 0.5
[2021-01-20 00:59] LABS: Red Cell Distribution Width 24 % (10-15)
[2021-01-20 01:00] LABS: Polychromasia 1+
[2021-01-20 02:00] LABS: Urine Appearance Clear; Urine Bilirubin Negative (Negative); Urine Blood Negative (Negative); Urine Color Straw; Urine Glucose Negative (Negative); Urine Ketones Negative (Negative); Urine Nitrite Negative (Negative); Urine Protein Negative (Negative); Urine Specific Gravity 1.009 (1.002-1.030); Urine Urobilinogen Negative (Negative)
[2021-01-20] MEDS ORDERED: Furosemide 40 mg/4 ml IV VIAL IV SLOW PU ONE (02:19)
[2021-01-20] MEDS ORDERED: Albuterol 2.5mg/3 ml (0.083%) NEB.SOLN INH PRN (02:19)
[2021-01-20] MEDS ORDERED: Dextrose 50% Syringe 50 ml 25 GM/50 ML SYRINGE IV PUSH PRN ×2 (02:19→02:27)
[2021-01-20] MEDS ORDERED: Bumetanide IV 0.25 MG/ML 4 ml VIAL (1 mg) SLOW PUSH ONE (02:26)
[2021-01-20 03:33] LABS: Urine Appearance Clear; Urine Bilirubin Negative (Negative); Urine Blood Negative (Negative); Urine Color Straw; Urine Glucose Negative (Negative); Urine Ketones Negative (Negative); Urine Nitrite Negative (Negative); Urine Protein Negative (Negative); Urine Specific Gravity 1.009 (1.002-1.030); Urine Urobilinogen Negative (Negative)
[2021-01-20 03:49] LABS: Urine Creatinine Concentration 69.9 mg/dL
[2021-01-20] MEDS: Tiotropium Brom/Olodaterol MDI INH SCH (08:01)
[2021-01-20 08:03] LABS: ABS Basophils 0.3 10^3/ul (0-0.2); ABS Eosinophils 0.7 10^3/ul (0-0.6); ABS Lymphocytes 2.4 10^3/ul (1.0-4.8); ABS Monocytes 4.6 10^3/ul (0-0.8); ABS Neutrophils 11.7 10^3/ul (1.5-7.7); ABS Nucleated RBC 0.2 10^3/ul; Eosinophil % 3.4 %; Hematocrit 32 % (35-47); Hemoglobin 9.9 g/dL (12.0-16.0); Lymphocyte % 12.4 %; Mean Corpuscular HGB Conc 31 g/dL (31-36); Mean Corpuscular Hemoglobin 25 pg (27-31); Mean Corpuscular Volume 80 fL (80-97); Mean Platelet Volume 9.2 fL (7.4-10.4); Nucleated Red Blood Cells % 0.9; Platelet Count 139 10^3/uL (150-450); Red Blood Count 4.02 10^6 /uL (3.70-4.87); Red Cell Distribution Width 24 % (10-15); White Blood Count 19.7 10^3/uL (3.5-10.8)
[2021-01-20] MEDS: DULoxetine DR 30 mg CAP PO SCH (08:21)
[2021-01-20 08:23] LABS: INR 1.35 (0.82-1.09)
[2021-01-20 08:29] LABS: Calcium 9.3 mg/dL (8.6-10.3); EGFR African American 24.2 (>60); Potassium 4.3 mmol/L (3.5-5.0)
[2021-01-20 08:30] LABS: Troponin I 0.01 ng/mL (<0.03)
[2021-01-20] MEDS ORDERED: Perflutren Lipid Microsphere 3 ML VIAL ONE (12:47)
[2021-01-20] MEDS: Furosemide 100 mg/10 ml IV VIAL IV SCH (16:54)
[2021-01-20] MEDS: Mometasone 220 MCG MDI INH SCH (19:13)
[2021-01-20] MEDS: Insulin GLARGINE 100 un/ml 10 ml VIAL SUBCUT SCH (22:21)
[2021-01-21 05:03] LABS: Hematocrit 31 % (35-47); Hemoglobin 9.6 g/dL (12.0-16.0); Mean Corpuscular HGB Conc 32 g/dL (31-36); Mean Corpuscular Hemoglobin 25 pg (27-31); Mean Corpuscular Volume 79 fL (80-97); Mean Platelet Volume 9.3 fL (7.4-10.4); Platelet Count 141 10^3/uL (150-450); Red Blood Count 3.87 10^6 /uL (3.70-4.87); Red Cell Distribution Width 24 % (10-15); White Blood Count 21.9 10^3/uL (3.5-10.8)
[2021-01-21 05:17] LABS: Calcium 8.8 mg/dL (8.6-10.3); EGFR African American 20.8 (>60); EGFR Non-African American 17.2 (>60); Potassium 4.2 mmol/L (3.5-5.0)
[2021-01-21 05:22] LABS: ABS Basophils 0.2 10^3/ul (0-0.2); ABS Eosinophils 0.6 10^3/ul (0-0.6); ABS Lymphocytes 2.1 10^3/ul (1.0-4.8); ABS Monocytes 4.8 10^3/ul (0-0.8); ABS Neutrophils 14.3 10^3/ul (1.5-7.7); ABS Nucleated RBC 0.1 10^3/ul; Eosinophil % 2.5 %; Lymphocyte % 9.6 %; Nucleated Red Blood Cells % 0.6
[2021-01-21] MEDS: Furosemide 100 mg/10 ml IV VIAL IV SCH (07:54)
[2021-01-21] MEDS: DULoxetine DR 30 mg CAP PO SCH (07:54)
[2021-01-21] MEDS: Tiotropium Brom/Olodaterol MDI INH SCH (09:13)
[2021-01-21] MEDS: Mometasone 220 MCG MDI INH SCH (20:06)
[2021-01-21] MEDS: Insulin GLARGINE 100 un/ml 10 ml VIAL SUBCUT SCH (21:56)
[2021-01-22 05:53] LABS: Hematocrit 30 % (35-47); Hemoglobin 9.5 g/dL (12.0-16.0); Mean Corpuscular HGB Conc 31 g/dL (31-36); Mean Corpuscular Hemoglobin 25 pg (27-31); Mean Corpuscular Volume 79 fL (80-97); Mean Platelet Volume 9.5 fL (7.4-10.4); Platelet Count 146 10^3/uL (150-450); Red Blood Count 3.83 10^6 /uL (3.70-4.87); Red Cell Distribution Width 24 % (10-15); White Blood Count 21.5 10^3/uL (3.5-10.8)
[2021-01-22 06:01] LABS: Calcium 8.9 mg/dL (8.6-10.3); EGFR African American 18.7 (>60); EGFR Non-African American 15.4 (>60)
[2021-01-22 06:03] LABS: Potassium 4.7 mmol/L (3.5-5.0)
[2021-01-22 06:50] LABS: Acanthocytes 1+; Microcytosis 1+
[2021-01-22 06:51] LABS: Polychromasia 1+; Tear Drop Cells 1+
[2021-01-22 06:52] LABS: ABS Basophils 0.4 10^3/ul (0-0.2); ABS Eosinophils 0.7 10^3/ul (0-0.6); ABS Lymphocytes 3.1 10^3/ul (1.0-4.8); ABS Monocytes 4.9 10^3/ul (0-0.8); ABS Neutrophils 12.4 10^3/ul (1.5-7.7); ABS Nucleated RBC 0.1 10^3/ul; Eosinophil % 3.1 %; Lymphocyte % 14.6 %; Nucleated Red Blood Cells % 0.7
[2021-01-22] MEDS: Tiotropium Brom/Olodaterol MDI INH SCH (08:11)
[2021-01-22] MEDS: DULoxetine DR 30 mg CAP PO SCH (08:29)
[2021-01-22 11:14] VITALS: BP 113/67
== END 2021-01-22 12:00 | disposition home or self-care (01) | DRG 291 ==
LOC: ED 23:56 → MEDTELE 01-20 02:12
PROVIDERS: ADMIT Internal Medicine Interventional Cardiology; ATTEND Internal Medicine

== ENCOUNTER 2021-01-22 17:31 | Inpatient (IN) ==
[2021-01-22 18:27] LABS: Hematocrit 30 % (35-47); Hemoglobin 9.7 g/dL (12.0-16.0); Mean Corpuscular HGB Conc 32 g/dL (31-36); Mean Corpuscular Hemoglobin 25 pg (27-31); Mean Corpuscular Volume 79 fL (80-97); Mean Platelet Volume 9.3 fL (7.4-10.4); Platelet Count 158 10^3/uL (150-450); Red Blood Count 3.84 10^6 /uL (3.70-4.87); Red Cell Distribution Width 24 % (10-15); White Blood Count 23.4 10^3/uL (3.5-10.8)
[2021-01-22 18:35] LABS: ALT 8 U/L (7-52); AST 15 U/L (13-39); Albumin 3.9 g/dL (3.2-5.2); Albumin/Globulin Ratio 1.1 (1-3); Alkaline Phosphatase 74 U/L (34-104); Anion Gap 7 mmol/L (2-11); Blood Urea Nitrogen 71 mg/dL (6-24); CO2 Carbon Dioxide 28 mmol/L (22-32); Chloride 97 mmol/L (101-111); EGFR African American 19.8 (>60); EGFR Non-African American 16.3 (>60); Globulin 3.6 g/dL (2-4); Glucose 223 mg/dL (70-100); Sodium 132 mmol/L (135-145); Total Protein 7.5 g/dL (6.4-8.9)
[2021-01-22 18:47] LABS: ABS Basophils 0.3 10^3/ul (0-0.2); ABS Eosinophils 0.5 10^3/ul (0-0.6); ABS Monocytes 4.7 10^3/ul (0-0.8); ABS Neutrophils 14.8 10^3/ul (1.5-7.7); ABS Nucleated RBC 0.1 10^3/ul; Eosinophil % 2.2 %; Lymphocyte % 12.9 %; Nucleated Red Blood Cells % 0.6
[2021-01-22 18:48] LABS: Microcytosis 1+; Polychromasia 1+
[2021-01-22 18:49] LABS: Tear Drop Cells 1+
[2021-01-22] MEDS ORDERED: Albuterol HFA INHALER 8 gm MDI INH PRN (21:14)
[2021-01-22] MEDS ORDERED: Dextrose 50% Syringe 50 ml 25 GM/50 ML SYRINGE IV PUSH PRN (21:27)
[2021-01-22] MEDS ORDERED: Heparin 5000 UNITS/ML 1 mL VIAL SUBCUT SCH (22:00)
[2021-01-22] MEDS: Bumetanide IV 0.25 MG/ML 4 ml VIAL (1 mg) SLOW PUSH SCH (23:15)
[2021-01-22 23:41] LABS: % Iron Saturation 5 % (15-55); Iron 22 ug/dL (50-212); Total Iron Binding Capacity 431 mcg/dL (250-450); Transferrin 308 mg/dL (203-362); Unsaturated Iron Binding < 416 ug/dL
[2021-01-23 05:57] LABS: Calcium 9.1 mg/dL (8.6-10.3); EGFR African American 20.2 (>60); EGFR Non-African American 16.7 (>60); Potassium 3.6 mmol/L (3.5-5.0)
[2021-01-23] MEDS ORDERED: Insulin GLARGINE 100 un/ml 10 ml VIAL SUBCUT SCH (09:00)
[2021-01-23] MEDS: DULoxetine DR 30 mg CAP PO SCH (09:46)
[2021-01-23] MEDS: Bumetanide IV 0.25 MG/ML 4 ml VIAL (1 mg) SLOW PUSH SCH ×3 (09:46→21:17)
[2021-01-23] MEDS: FLUTICASONE/UMECLIDIN/VILANTER 1 PUFF MDI INH SCH (11:10)
[2021-01-23] MEDS: CMC:Pravastatin 20 mg TAB (NF) PO SCH (13:11)
[2021-01-23] MEDS: Insulin GLARGINE 100 un/ml 10 ml VIAL SUBCUT SCH (21:25)
[2021-01-24 06:06] LABS: Calcium 9.3 mg/dL (8.6-10.3); EGFR African American 23.7 (>60); EGFR Non-African American 19.6 (>60); Magnesium 2.3 mg/dL (1.9-2.7); Potassium 3.7 mmol/L (3.5-5.0)
[2021-01-24] MEDS: DULoxetine DR 30 mg CAP PO SCH (09:05)
[2021-01-24] MEDS: Bumetanide IV 0.25 MG/ML 4 ml VIAL (1 mg) SLOW PUSH SCH ×2 (09:09→20:34)
[2021-01-24] MEDS: FLUTICASONE/UMECLIDIN/VILANTER 1 PUFF MDI INH SCH (12:19)
[2021-01-24] MEDS: CMC:Pravastatin 20 mg TAB (NF) PO SCH (12:23)
[2021-01-24] MEDS: Insulin GLARGINE 100 un/ml 10 ml VIAL SUBCUT SCH (20:34)
[2021-01-25 06:41] LABS: Calcium 9.5 mg/dL (8.6-10.3); EGFR African American 21.9 (>60); EGFR Non-African American 18.1 (>60); Magnesium 2.3 mg/dL (1.9-2.7); Potassium 3.7 mmol/L (3.5-5.0)
[2021-01-25] MEDS: Bumetanide IV 0.25 MG/ML 4 ml VIAL (1 mg) SLOW PUSH SCH (09:15)
[2021-01-25] MEDS: DULoxetine DR 30 mg CAP PO SCH (09:18)
[2021-01-25] MEDS ORDERED: Magnesium Hydroxide LIQ 30 ML UDC PO PRN (11:23)
[2021-01-25] MEDS: FLUTICASONE/UMECLIDIN/VILANTER 1 PUFF MDI INH SCH (11:53)
[2021-01-25] MEDS: CMC:Pravastatin 20 mg TAB (NF) PO SCH (12:43)
[2021-01-25] MEDS ORDERED: Senna TAB 8.6 mg TAB PO ONE (16:13)
[2021-01-25] MEDS: Mometasone/Formoter 100/5 MDI INH SCH ×2 (17:32→20:26)
[2021-01-25] MEDS: SPIRIVA Respimat (tiotropium) 2.5 mcg/inh Inhaler INH SCH (17:32)
[2021-01-25] MEDS: Insulin GLARGINE 100 un/ml 10 ml VIAL SUBCUT SCH (20:36)
[2021-01-26] MEDS: SPIRIVA Respimat (tiotropium) 2.5 mcg/inh Inhaler INH SCH (07:57)
[2021-01-26] MEDS: Mometasone/Formoter 100/5 MDI INH SCH (07:57)
[2021-01-26] MEDS: DULoxetine DR 30 mg CAP PO SCH (08:44)
[2021-01-26 11:39] VITALS: BP 105/71
== END 2021-01-26 13:01 | disposition home or self-care (01) | DRG 291 ==
LOC: ED 17:31 → MEDTELE 21:25
PROVIDERS: ADMIT Internal Medicine; ATTEND Student in an Organized Health Care Education/Training Program

== ENCOUNTER 2021-02-22 09:38 | Observation (INO) ==
[2021-02-22 10:40] LABS: INR 1.52 (0.82-1.09)
[2021-02-22 10:42] LABS: ABS Basophils 0.9 10^3/ul (0-0.2); ABS Eosinophils 0.4 10^3/ul (0-0.6); ABS Lymphocytes 2.8 10^3/ul (1.0-4.8); ABS Monocytes 4.9 10^3/ul (0-0.8); ABS Neutrophils 9.3 10^3/ul (1.5-7.7); ABS Nucleated RBC 0.1 10^3/ul; Eosinophil % 2.3 %; Hematocrit 35 % (35-47); Hemoglobin 10.8 g/dL (12.0-16.0); Lymphocyte % 15.3 %; Mean Corpuscular HGB Conc 31 g/dL (31-36); Mean Corpuscular Hemoglobin 24 pg (27-31); Mean Corpuscular Volume 78 fL (80-97); Mean Platelet Volume 8.2 fL (7.4-10.4); Nucleated Red Blood Cells % 0.5; Platelet Count 210 10^3/uL (150-450); Red Blood Count 4.46 10^6 /uL (3.70-4.87); Red Cell Distribution Width 25 % (10-15); White Blood Count 18.3 10^3/uL (3.5-10.8)
[2021-02-22 10:45] LABS: Albumin 4.3 g/dL (3.2-5.2); Calcium 9.6 mg/dL (8.6-10.3); Potassium 3.5 mmol/L (3.5-5.0); Total Bilirubin 0.7 mg/dL (0.2-1.0)
[2021-02-22 10:51] LABS: Albumin/Globulin Ratio 1.1 (1-3); C Reactive Protein 3.35 mg/L (<8.01); EGFR African American 14.1 (>60); EGFR Non-African American 11.7 (>60); Globulin 3.9 g/dL (2-4); Phosphorus 4.8 mg/dL (2.5-5.0); Total Protein 8.2 g/dL (6.4-8.9)
[2021-02-22 11:26] LABS: Urine Appearance Cloudy; Urine Bilirubin Negative (Negative); Urine Blood Negative (Negative); Urine Color Yellow; Urine Glucose Negative (Negative); Urine Ketones Negative (Negative); Urine Nitrite Negative (Negative); Urine Protein Negative (Negative); Urine Urobilinogen Negative (Negative)
[2021-02-22 11:46] LABS: Urine Bacteria Absent (Absent); Urine Red Blood Cell Trace(0-2/hpf) (Absent); Urine Squamous Epithelial Cell Present (Absent); Urine White Blood Cell 1+(6-10/hpf) (Absent)
[2021-02-22] MEDS ORDERED: NS 0.9% 1000 ml BAG 1,000 ML IV SCH (13:30)
[2021-02-22] MEDS ORDERED: Ondansetron 4 mg VIAL 2 MG/ML 2 ml VIAL IV PRN (13:30)
[2021-02-22] MEDS ORDERED: Senna TAB 8.6 mg TAB PO PRN (13:34)
[2021-02-22] MEDS ORDERED: Dextrose 50% Syringe 50 ml 25 GM/50 ML SYRINGE IV PUSH PRN (13:39)
[2021-02-22] MEDS ORDERED: Albuterol HFA INHALER 8 gm MDI INH PRN (14:25)
[2021-02-22] MEDS: fentaNYL PATCH 12 MCG/HR 1 PATCH TRANSDERM SCH (16:07)
[2021-02-22] MEDS: cefTRIAXone 1 gm/50 mL NS BAG 1 GM/50 ML BAG IVPB SCH (16:14)
[2021-02-22] MEDS: fentaNYL Patch Check Q Shift NOTE FOLLOW UP SCH (18:59)
[2021-02-22] MEDS: Pantoprazole VIAL 40 MG VIAL IV SCH (21:26)
[2021-02-22] MEDS: Insulin GLARGINE 100 un/ml 10 ml VIAL SUBCUT SCH (21:26)
[2021-02-22] MEDS: Potassium Chlor 20 meq TAB.ER PO SCH (21:27)
[2021-02-23 06:53] LABS: Hematocrit 32 % (35-47); Mean Corpuscular HGB Conc 31 g/dL (31-36); Mean Corpuscular Hemoglobin 24 pg (27-31); Mean Corpuscular Volume 78 fL (80-97); Mean Platelet Volume 8.5 fL (7.4-10.4); Platelet Count 185 10^3/uL (150-450); Red Blood Count 4.12 10^6 /uL (3.70-4.87); Red Cell Distribution Width 25 % (10-15); White Blood Count 16.9 10^3/uL (3.5-10.8)
[2021-02-23 06:56] LABS: ABS Basophils 0.4 10^3/ul (0-0.2); ABS Eosinophils 0.5 10^3/ul (0-0.6); ABS Lymphocytes 2.6 10^3/ul (1.0-4.8); ABS Monocytes 4.7 10^3/ul (0-0.8); ABS Neutrophils 8.7 10^3/ul (1.5-7.7); Eosinophil % 2.8 %; Lymphocyte % 15.5 %; Nucleated Red Blood Cells % 0.2
[2021-02-23] MEDS: fentaNYL Patch Check Q Shift NOTE FOLLOW UP SCH ×2 (07:08→18:43)
[2021-02-23 07:10] LABS: Albumin 3.7 g/dL (3.2-5.2); Albumin/Globulin Ratio 1.1 (1-3); Calcium 9.2 mg/dL (8.6-10.3); EGFR Non-African American 14.9 (>60); Globulin 3.4 g/dL (2-4); Potassium 3.5 mmol/L (3.5-5.0); Total Bilirubin 0.5 mg/dL (0.2-1.0); Total Protein 7.1 g/dL (6.4-8.9)
[2021-02-23] MEDS: Mometasone/Formoter 100/5 MDI INH SCH ×2 (07:54→19:51)
[2021-02-23] MEDS: SPIRIVA Respimat (tiotropium) 2.5 mcg/inh Inhaler INH SCH (07:55)
[2021-02-23] MEDS: Insulin GLARGINE 100 un/ml 10 ml VIAL SUBCUT SCH ×2 (09:05→19:42)
[2021-02-23] MEDS: Pantoprazole VIAL 40 MG VIAL IV SCH ×2 (09:05→19:42)
[2021-02-23] MEDS: Iron Sucrose 200 MG in NS 0.9% 100 ml BAG 100 ML IVPB SCH (09:05)
[2021-02-23] MEDS: Polyethylene Glycol 3350 17 GM PACKET PO SCH (09:05)
[2021-02-23] MEDS: Potassium Chlor 20 meq TAB.ER PO SCH ×2 (09:06→19:40)
[2021-02-23] MEDS: cefTRIAXone 1 gm/50 mL NS BAG 1 GM/50 ML BAG IVPB SCH (16:04)
[2021-02-24 06:03] LABS: ABS Basophils 0.2 10^3/ul (0-0.2); ABS Eosinophils 0.6 10^3/ul (0-0.6); ABS Lymphocytes 2.6 10^3/ul (1.0-4.8); ABS Neutrophils 10.8 10^3/ul (1.5-7.7); ABS Nucleated RBC 0.1 10^3/ul; Eosinophil % 2.9 %; Hematocrit 32 % (35-47); Lymphocyte % 13.6 %; Mean Corpuscular HGB Conc 31 g/dL (31-36); Mean Corpuscular Hemoglobin 24 pg (27-31); Mean Corpuscular Volume 78 fL (80-97); Mean Platelet Volume 8.3 fL (7.4-10.4); Nucleated Red Blood Cells % 0.5; Platelet Count 178 10^3/uL (150-450); Red Cell Distribution Width 26 % (10-15); White Blood Count 19.2 10^3/uL (3.5-10.8)
[2021-02-24 06:20] LABS: Calcium 9.6 mg/dL (8.6-10.3); EGFR African American 25.1 (>60); EGFR Non-African American 20.7 (>60); Magnesium 2.4 mg/dL (1.9-2.7); Potassium 3.9 mmol/L (3.5-5.0)
[2021-02-24] MEDS: fentaNYL Patch Check Q Shift NOTE FOLLOW UP SCH ×2 (06:45→18:57)
[2021-02-24] MEDS: Iron Sucrose 200 MG in NS 0.9% 100 ml BAG 100 ML IVPB SCH (07:51)
[2021-02-24] MEDS: Cholecalciferol (VIT D3) 1,000 unit TAB PO SCH (07:51)
[2021-02-24] MEDS: Pantoprazole VIAL 40 MG VIAL IV SCH ×2 (07:51→21:00)
[2021-02-24] MEDS: Potassium Chlor 20 meq TAB.ER PO SCH ×2 (07:52→21:00)
[2021-02-24] MEDS: Polyethylene Glycol 3350 17 GM PACKET PO SCH (07:52)
[2021-02-24] MEDS: Insulin GLARGINE 100 un/ml 10 ml VIAL SUBCUT SCH ×2 (08:49→21:01)
[2021-02-24] MEDS: Mometasone/Formoter 100/5 MDI INH SCH ×2 (09:52→21:15)
[2021-02-24] MEDS: SPIRIVA Respimat (tiotropium) 2.5 mcg/inh Inhaler INH SCH (09:53)
[2021-02-24] MEDS ORDERED: Calcium Carb (TUMS) 500 mg CHEW TAB PO PRN (10:54)
[2021-02-24] MEDS: cefTRIAXone 1 gm/50 mL NS BAG 1 GM/50 ML BAG IVPB SCH (16:27)
[2021-02-25] MEDS: fentaNYL Patch Check Q Shift NOTE FOLLOW UP SCH (07:07)
[2021-02-25] MEDS: Mometasone/Formoter 100/5 MDI INH SCH (08:09)
[2021-02-25] MEDS: SPIRIVA Respimat (tiotropium) 2.5 mcg/inh Inhaler INH SCH (08:09)
[2021-02-25] MEDS: Polyethylene Glycol 3350 17 GM PACKET PO SCH (08:14)
[2021-02-25] MEDS: Cholecalciferol (VIT D3) 1,000 unit TAB PO SCH (08:14)
[2021-02-25] MEDS: Potassium Chlor 20 meq TAB.ER PO SCH (08:14)
[2021-02-25] MEDS: Pantoprazole VIAL 40 MG VIAL IV SCH (08:19)
[2021-02-25] MEDS: Insulin GLARGINE 100 un/ml 10 ml VIAL SUBCUT SCH (08:27)
[2021-02-25] MEDS: fentaNYL PATCH 12 MCG/HR 1 PATCH TRANSDERM SCH (08:29)
[2021-02-25] MEDS: Iron Sucrose 200 MG in NS 0.9% 100 ml BAG 100 ML IVPB SCH (09:22)
[2021-02-25 11:32] LABS: ABS Basophils 0.1 10^3/ul (0-0.2); ABS Eosinophils 0.5 10^3/ul (0-0.6); ABS Lymphocytes 2.6 10^3/ul (1.0-4.8); ABS Neutrophils 12.3 10^3/ul (1.5-7.7); ABS Nucleated RBC 0.1 10^3/ul; Eosinophil % 2.7 %; Hematocrit 33 % (35-47); Hemoglobin 10.4 g/dL (12.0-16.0); Lymphocyte % 12.6 %; Mean Corpuscular HGB Conc 32 g/dL (31-36); Mean Corpuscular Hemoglobin 25 pg (27-31); Mean Corpuscular Volume 77 fL (80-97); Mean Platelet Volume 8.4 fL (7.4-10.4); Nucleated Red Blood Cells % 0.6; Platelet Count 186 10^3/uL (150-450); Red Blood Count 4.24 10^6 /uL (3.70-4.87); Red Cell Distribution Width 25 % (10-15); White Blood Count 20.5 10^3/uL (3.5-10.8)
[2021-02-25 11:46] LABS: Calcium 10.2 mg/dL (8.6-10.3); Magnesium 2.1 mg/dL (1.9-2.7); Potassium 3.8 mmol/L (3.5-5.0)
[2021-02-25 11:55] VITALS: BP 121/70
[2021-02-25 11:59] LABS: Polychromasia 1+
== END 2021-02-25 15:20 | disposition home or self-care (01) ==
LOC: MED 09:38 → ED 09:38 → MED 14:43
PROVIDERS: ADMIT Internal Medicine; ATTEND Hospitalist

== ENCOUNTER 2021-12-27 00:02 | Inpatient (IN) ==
[2021-12-27 01:11] LABS: Hematocrit 32 % (35-47); Mean Corpuscular HGB Conc 31 g/dL (31-36); Mean Corpuscular Hemoglobin 25 pg (27-31); Mean Corpuscular Volume 79 fL (80-97); Mean Platelet Volume 9.1 fL (7.4-10.4); Platelet Count 140 10^3/uL (150-450); Red Blood Count 4.06 10^6 /uL (3.70-4.87); Red Cell Distribution Width 23 % (10-15); White Blood Count 21.9 10^3/uL (3.5-10.8)
[2021-12-27 01:20] LABS: Albumin 3.9 g/dL (3.2-5.2); Albumin/Globulin Ratio 1.1 (1-3); Calcium 9.2 mg/dL (8.6-10.3); Globulin 3.5 g/dL (2-4); Potassium 3.4 mmol/L (3.5-5.0); Total Bilirubin 0.9 mg/dL (0.2-1.0); Total Protein 7.4 g/dL (6.4-8.9); eGFR CKD-EPI 21.2 (>60)
[2021-12-27 01:42] LABS: Urine Appearance Clear; Urine Bilirubin Negative (Negative); Urine Blood Negative (Negative); Urine Color Yellow; Urine Glucose Negative (Negative); Urine Ketones Negative (Negative); Urine Nitrite Negative (Negative); Urine Protein Negative (Negative); Urine Specific Gravity 1.012 (1.002-1.030); Urine Urobilinogen Negative (Negative)
[2021-12-27 01:45] LABS: ABS Basophils 0.6 10^3/ul (0-0.2); ABS Eosinophils 0.5 10^3/ul (0-0.6); ABS Lymphocytes 1.4 10^3/ul (1.0-4.8); ABS Monocytes 6.9 10^3/ul (0-0.8); ABS Neutrophils 12.5 10^3/ul (1.5-7.7); ABS Nucleated RBC 0.1 10^3/ul; Eosinophil % 2.4 %; Lymphocyte % 6.6 %; Nucleated Red Blood Cells % 0.6
[2021-12-27 01:59] LABS: Anisocytosis 2+; Microcytosis 1+; Polychromasia 1+
[2021-12-27] MEDS ORDERED: methylPREDNISolone 125 mg 2 ML VIAL IV ONE (02:32)
[2021-12-27] MEDS ORDERED: Albuterol 0.5% CONC CONTINUOUS NEB.SOL 5 mg/ml 20 ml BOT INH ONE (02:34)
[2021-12-27 03:03] LABS: Magnesium 2.7 mg/dL (1.9-2.7)
[2021-12-27] MEDS ORDERED: Azithromycin 500 MG IV - ED ONCE IVPB ONE (03:36)
[2021-12-27] MEDS ORDERED: IPRATROPIUM BR 0.03% BOTH NARES PRN (03:45)
[2021-12-27] MEDS ORDERED: Senna TAB 8.6 mg TAB PO PRN (03:45)
[2021-12-27] MEDS ORDERED: fentaNYL PATCH 12 MCG/HR 1 PATCH TRANSDERM SCH (04:00)
[2021-12-27] MEDS: Albuterol/Ipratropium NEB.SOL (2.5/0.5 MG) 3 ML NEB.SOLN INH SCH ×2 (07:01→13:07)
[2021-12-27] MEDS ORDERED: Dextrose 50% Syringe 50 ml 25 GM/50 ML SYRINGE IV PUSH PRN ×2 (07:35→12:53)
[2021-12-27] MEDS ORDERED: cefTRIAXone 1 gm/50 mL D5W 1 GM/50 ML BAG IV ONE (07:47)
[2021-12-27] MEDS ORDERED: fentaNYL PATCH 25 MCG/HR 1 PATCH TRANSDERM SCH (08:00)
[2021-12-27] MEDS: fentaNYL Patch Check Q Shift NOTE FOLLOW UP SCH ×2 (08:15→18:25)
[2021-12-27 08:25] LABS: C Reactive Protein 52.58 mg/L (<8.01)
[2021-12-27 08:25] LABS: Hematocrit 31 % (35-47); Hemoglobin 9.7 g/dL (12.0-16.0); Mean Corpuscular HGB Conc 31 g/dL (31-36); Mean Corpuscular Hemoglobin 25 pg (27-31); Mean Corpuscular Volume 80 fL (80-97); Mean Platelet Volume 9.2 fL (7.4-10.4); Platelet Count 142 10^3/uL (150-450); Red Blood Count 3.89 10^6 /uL (3.70-4.87); Red Cell Distribution Width 23 % (10-15); White Blood Count 23.7 10^3/uL (3.5-10.8)
[2021-12-27 09:04] LABS: Anisocytosis 3+; Hypochromasia 1+; Microcytosis 1+; Polychromasia 2+
[2021-12-27 09:07] LABS: ABS Basophils 0.1 10^3/ul (0-0.2); ABS Eosinophils 0.2 10^3/ul (0-0.6); ABS Lymphocytes 1.2 10^3/ul (1.0-4.8); ABS Monocytes 4.1 10^3/ul (0-0.8); ABS Nucleated RBC 0.1 10^3/ul; Lymphocyte % 5.2 %; Nucleated Red Blood Cells % 0.3
[2021-12-27 09:09] LABS: Blood Urea Nitrogen 37 mg/dL (6-24); CO2 Carbon Dioxide 29 mmol/L (22-32); Calcium 8.7 mg/dL (8.6-10.3); Chloride 102 mmol/L (101-111); Glucose 147 mg/dL (70-100); Sodium 141 mmol/L (135-145); eGFR CKD-EPI 23.5 (>60)
[2021-12-27 09:26] LABS: Anion Gap 10 mmol/L (2-11)
[2021-12-27] MEDS: Polyethylene Glycol 3350 17 GM PACKET PO SCH (09:28)
[2021-12-27] MEDS: Potassium Chlor 20 meq TAB.ER PO SCH ×2 (09:32→22:37)
[2021-12-27] MEDS: DULoxetine DR 30 mg CAP PO SCH (10:01)
[2021-12-27] MEDS: FLUTICAS/UMECLI/VILANT 100-62.5-25 MDI (NF) INH SCH (12:34)
[2021-12-27] MEDS: Fluticasone NASAL SPRAY 50MCG 16 gm SPRAY BTL INTRANASAL SCH (12:34)
[2021-12-27] MEDS: Psyllium PAK PO SCH (15:45)
[2021-12-27] MEDS: Insulin GLARGINE 100 un/ml 10 ml VIAL SUBCUT SCH (22:43)
[2021-12-28] MEDS: Albuterol HFA INHALER 8 gm MDI INH PRN ×3 (02:04→19:52)
[2021-12-28] MEDS: Azithromycin 500 mg/250 ml NS 500 MG/250 ML BAG IVPB SCH (03:46)
[2021-12-28 06:08] LABS: Hematocrit 32 % (35-47); Hemoglobin 9.9 g/dL (12.0-16.0); Mean Corpuscular HGB Conc 31 g/dL (31-36); Mean Corpuscular Hemoglobin 25 pg (27-31); Mean Corpuscular Volume 79 fL (80-97); Mean Platelet Volume 9.1 fL (7.4-10.4); Platelet Count 160 10^3/uL (150-450); Red Blood Count 4.04 10^6 /uL (3.70-4.87); Red Cell Distribution Width 23 % (10-15); White Blood Count 35.1 10^3/uL (3.5-10.8)
[2021-12-28 06:25] LABS: ABS Basophils 0.5 10^3/ul (0-0.2); ABS Eosinophils 0.1 10^3/ul (0-0.6); ABS Lymphocytes 1.6 10^3/ul (1.0-4.8); ABS Monocytes 11.2 10^3/ul (0-0.8); ABS Neutrophils 21.6 10^3/ul (1.5-7.7); Eosinophil % 0.4 %; Lymphocyte % 4.6 %; Nucleated Red Blood Cells % 0.1
[2021-12-28] MEDS: fentaNYL Patch Check Q Shift NOTE FOLLOW UP SCH ×2 (06:54→18:54)
[2021-12-28 06:57] LABS: Potassium 3.9 mmol/L (3.5-5.0)
[2021-12-28 07:06] LABS: Anisocytosis 1+; Polychromasia 1+
[2021-12-28] MEDS: FLUTICAS/UMECLI/VILANT 100-62.5-25 MDI (NF) INH SCH (07:27)
[2021-12-28 07:31] LABS: Calcium 8.9 mg/dL (8.6-10.3); eGFR CKD-EPI 20.9 (>60)
[2021-12-28] MEDS: Fluticasone NASAL SPRAY 50MCG 16 gm SPRAY BTL INTRANASAL SCH (08:36)
[2021-12-28] MEDS: Polyethylene Glycol 3350 17 GM PACKET PO SCH (08:37)
[2021-12-28] MEDS: DULoxetine DR 30 mg CAP PO SCH (08:39)
[2021-12-28] MEDS: Potassium Chlor 20 meq TAB.ER PO SCH ×2 (08:39→22:09)
[2021-12-28] MEDS: Psyllium PAK PO SCH (14:16)
[2021-12-28] MEDS: Insulin GLARGINE 100 un/ml 10 ml VIAL SUBCUT SCH (22:15)
[2021-12-29] MEDS: Albuterol HFA INHALER 8 gm MDI INH PRN ×2 (04:25→08:00)
[2021-12-29] MEDS: Azithromycin 500 mg/250 ml NS 500 MG/250 ML BAG IVPB SCH (04:32)
[2021-12-29 06:01] LABS: Hematocrit 33 % (35-47); Hemoglobin 10.4 g/dL (12.0-16.0); Mean Corpuscular HGB Conc 31 g/dL (31-36); Mean Corpuscular Hemoglobin 25 pg (27-31); Mean Corpuscular Volume 79 fL (80-97); Platelet Count 172 10^3/uL (150-450); Red Blood Count 4.21 10^6 /uL (3.70-4.87); Red Cell Distribution Width 23 % (10-15); White Blood Count 40.9 10^3/uL (3.5-10.8)
[2021-12-29 06:17] LABS: Calcium 8.8 mg/dL (8.6-10.3); Magnesium 2.3 mg/dL (1.9-2.7); Potassium 3.7 mmol/L (3.5-5.0); eGFR CKD-EPI 22.6 (>60)
[2021-12-29] MEDS: fentaNYL Patch Check Q Shift NOTE FOLLOW UP SCH (06:44)
[2021-12-29 07:33] LABS: Anisocytosis 2+
[2021-12-29 07:35] LABS: Polychromasia 1+
[2021-12-29 07:37] LABS: ABS Basophils 0.3 10^3/ul (0-0.2); ABS Eosinophils 0.1 10^3/ul (0-0.6); ABS Lymphocytes 1.8 10^3/ul (1.0-4.8); ABS Monocytes 9.9 10^3/ul (0-0.8); ABS Neutrophils 28.8 10^3/ul (1.5-7.7); ABS Nucleated RBC 0.1 10^3/ul; Eosinophil % 0.1 %; Lymphocyte % 4.4 %; Nucleated Red Blood Cells % 0.2
[2021-12-29] MEDS: FLUTICAS/UMECLI/VILANT 100-62.5-25 MDI (NF) INH SCH (08:00)
[2021-12-29 08:08] VITALS: BP 114/65
[2021-12-29] MEDS: Fluticasone NASAL SPRAY 50MCG 16 gm SPRAY BTL INTRANASAL SCH (08:41)
[2021-12-29] MEDS: DULoxetine DR 30 mg CAP PO SCH (08:42)
[2021-12-29] MEDS: Potassium Chlor 20 meq TAB.ER PO SCH (08:43)
[2021-12-29] MEDS: Polyethylene Glycol 3350 17 GM PACKET PO SCH (08:43)
== END 2021-12-29 11:39 | disposition home or self-care (01) | DRG 189 ==
LOC: ED 00:02 → SUATTDRO 03:37 → EDHOLD 03:37 → MED 13:27
PROVIDERS: ADMIT Internal Medicine; ATTEND Student in an Organized Health Care Education/Training Program

== ENCOUNTER 2022-05-18 23:24 | Observation (INO) ==
[2022-05-19 00:18] LABS: High Sens Troponin Baseline 10 pg/mL (<15)
[2022-05-19 00:24] LABS: Hematocrit 24 % (35-47); Hemoglobin 7.1 g/dL (12.0-16.0); Mean Corpuscular HGB Conc 29 g/dL (31-36); Mean Corpuscular Hemoglobin 22 pg (27-31); Mean Corpuscular Volume 75 fL (80-97); Mean Platelet Volume 9.1 fL (7.4-10.4); Platelet Count 167 10^3/uL (150-450); Red Blood Count 3.19 10^6 /uL (3.70-4.87); Red Cell Distribution Width 24 % (10-15); White Blood Count 47.7 10^3/uL (3.5-10.8)
[2022-05-19 00:25] LABS: INR 1.36 (0.89-1.11)
[2022-05-19 00:34] LABS: ALT 8 U/L (7-52); AST 16 U/L (13-39); Alkaline Phosphatase 59 U/L (35-149); Anion Gap 7 mmol/L (2-11); Blood Urea Nitrogen 69 mg/dL (6-24); CO2 Carbon Dioxide 34 mmol/L (22-32); Calcium 9.2 mg/dL (8.6-10.3); Chloride 92 mmol/L (101-111); Globulin 4.2 g/dL (2-4); Glucose 207 mg/dL (70-100); Potassium 3.4 mmol/L (3.5-5.0); Sodium 133 mmol/L (135-145); Total Protein 8.2 g/dL (6.4-8.9); eGFR CKD-EPI 12.7 (>60)
[2022-05-19 01:37] LABS: Anisocytosis 1+; Hypochromasia 1+
[2022-05-19 01:38] LABS: ABS Eosinophils 0.7 10^3/ul (0-0.6); ABS Lymphocytes 3.4 10^3/ul (1.0-4.8); ABS Monocytes 9.2 10^3/ul (0-0.8); ABS Neutrophils 33.3 10^3/ul (1.5-7.7); ABS Nucleated RBC 0.4 10^3/ul; Eosinophil % 1.5 %; Lymphocyte % 7.2 %; Nucleated Red Blood Cells % 0.7
[2022-05-19 01:50] LABS: High Sensitivity Troponin 1 Hr 10 pg/mL (<15)
[2022-05-19] MEDS ORDERED: Polyethylene Glycol 3350 17 GM PACKET PO PRN (05:34)
[2022-05-19] MEDS ORDERED: Fluticasone NASAL SPRAY 50MCG 16 gm SPRAY BTL INTRANASAL PRN (05:34)
[2022-05-19] MEDS ORDERED: Albuterol 2.5mg/3 ml (0.083%) NEB.SOLN INH PRN (05:34)
[2022-05-19] MEDS ORDERED: Albuterol HFA INHALER 8 gm MDI INH PRN (05:34)
[2022-05-19] MEDS ORDERED: Potassium Chlor 20 meq TAB.ER PO ONE (05:40)
[2022-05-19] MEDS ORDERED: Dextrose 50% Syringe 50 ml 25 GM/50 ML SYRINGE IV PUSH PRN (05:51)
[2022-05-19 06:07] LABS: Total Iron Binding Capacity 494 mcg/dL (250-450); Transferrin 353 mg/dL (203-362)
[2022-05-19 06:08] LABS: % Iron Saturation 4 % (15-55); Iron < 20 ug/dL (50-212); Unsaturated Iron Binding 474 ug/dL
[2022-05-19 06:42] LABS: Ferritin 27.6 ng/mL (11-307)
[2022-05-19 06:46] LABS: Folate 12.59 ng/mL (5.90-24.80)
[2022-05-19 06:47] LABS: Vitamin B12 1415 pg/mL (180-914)
[2022-05-19] MEDS ORDERED: Naloxone Nasal Spray 4 MG/0.1 ML NASAL.SPR INTRANASAL PRN (07:51)
[2022-05-19] MEDS ORDERED: fentaNYL PATCH 25 MCG/HR 1 PATCH TRANSDERM SCH (09:00)
[2022-05-19] MEDS ORDERED: Olopatadine 0.1% OPHTH (NF) 1 DROP BTL BOTH EYES PRN (09:00)
[2022-05-19] MEDS ORDERED: Duloxetine Sprinkle 30 mg CAP PO SCH (09:00)
[2022-05-19 09:26] LABS: Calcium 9.2 mg/dL (8.6-10.3); Potassium 3.8 mmol/L (3.5-5.0)
[2022-05-19] MEDS ORDERED: Iron Sucrose 200 MG in NS 0.9% 100 ml BAG 100 ML IVPB ONE (10:00)
[2022-05-19] MEDS: FLUTICAS/UMECLI/VILANT 100-62.5-25 MDI (NF) INH SCH (10:43)
[2022-05-19 11:32] LABS: Hematocrit 26 % (35-47); Hemoglobin 7.9 g/dL (12.0-16.0); Mean Corpuscular HGB Conc 31 g/dL (31-36); Mean Corpuscular Hemoglobin 24 pg (27-31); Mean Corpuscular Volume 78 fL (80-97); Platelet Count 146 10^3/uL (150-450); Red Blood Count 3.34 10^6 /uL (3.70-4.87); Red Cell Distribution Width 22 % (10-15); White Blood Count 41.6 10^3/uL (3.5-10.8)
[2022-05-19] MEDS: Cholecalciferol (VIT D3) 1,000 unit TAB PO SCH (12:05)
[2022-05-19] MEDS: DULoxetine DR 30 mg CAP PO SCH (12:17)
[2022-05-19 12:28] LABS: Anisocytosis 2+; Hypochromasia 1+; Microcytosis 1+; Polychromasia 1+
[2022-05-19 12:29] LABS: ABS Basophils 0.6 10^3/ul (0-0.2); ABS Eosinophils 0.8 10^3/ul (0-0.6); ABS Lymphocytes 2.7 10^3/ul (1.0-4.8); ABS Monocytes 8.6 10^3/ul (0-0.8); ABS Nucleated RBC 0.4 10^3/ul; Eosinophil % 1.8 %; Lymphocyte % 6.5 %
[2022-05-19] MEDS ORDERED: fentaNYL 100 mcg/2 ml 50 MCG/ML VIAL ONE (13:53)
[2022-05-19] MEDS ORDERED: Midazolam 10 mg/10 ml VIAL 1 mg/ml 10 ml VIAL (10 mg) ONE (13:53)
[2022-05-19 16:31] LABS: Hematocrit 28 % (35-47); Hemoglobin 8.4 g/dL (12.0-16.0)
[2022-05-19] MEDS: HYDROcodone/Acetamin 10/325 TAB (NF) PO PRN (19:23)
[2022-05-19] MEDS: fentaNYL Patch Check Q Shift NOTE FOLLOW UP SCH (19:37)
[2022-05-19] MEDS ORDERED: Senna TAB 8.6 mg TAB PO SCH (21:00)
[2022-05-20] MEDS: HYDROcodone/Acetamin 10/325 TAB (NF) PO PRN (03:04)
[2022-05-20] MEDS: fentaNYL Patch Check Q Shift NOTE FOLLOW UP SCH (07:16)
[2022-05-20 07:59] LABS: Hematocrit 27 % (35-47); Hemoglobin 8.5 g/dL (12.0-16.0); Mean Corpuscular HGB Conc 31 g/dL (31-36); Mean Corpuscular Hemoglobin 24 pg (27-31); Mean Corpuscular Volume 78 fL (80-97); Mean Platelet Volume 9.1 fL (7.4-10.4); Platelet Count 161 10^3/uL (150-450); Red Blood Count 3.48 10^6 /uL (3.70-4.87); Red Cell Distribution Width 23 % (10-15); White Blood Count 41.4 10^3/uL (3.5-10.8)
[2022-05-20] MEDS: FLUTICAS/UMECLI/VILANT 100-62.5-25 MDI (NF) INH SCH (08:14)
[2022-05-20] MEDS: DULoxetine DR 30 mg CAP PO SCH (08:38)
[2022-05-20] MEDS: Cholecalciferol (VIT D3) 1,000 unit TAB PO SCH (08:38)
[2022-05-20] MEDS ORDERED: Iron Sucrose 200 MG in NS 0.9% 100 ml BAG 100 ML IVPB SCH (09:00)
[2022-05-20 11:49] VITALS: BP 112/70
[2022-05-20 15:45] LABS: Anisocytosis 2+; Hypochromasia 2+; Microcytosis 1+; Polychromasia 1+
[2022-05-20 15:46] LABS: ABS Basophils 0.3 10^3/ul (0-0.2); ABS Lymphocytes 2.5 10^3/ul (1.0-4.8); ABS Monocytes 8.1 10^3/ul (0-0.8); ABS Neutrophils 29.5 10^3/ul (1.5-7.7); ABS Nucleated RBC 0.7 10^3/ul; Eosinophil % 2.4 %; Nucleated Red Blood Cells % 1.8
== END 2022-05-20 14:45 | disposition home or self-care (01) ==
LOC: EDHOLD 23:24 → ED 23:24 → SUATTDRO 05-19 04:55 → EDHOLD 05-19 12:38 → MED 05-19 15:47
PROVIDERS: ADMIT Internal Medicine; ATTEND Family Medicine

== ENCOUNTER 2022-05-22 17:35 | Inpatient (IN) ==
[2022-05-22 18:12] LABS: Hematocrit 23 % (35-47); Hemoglobin 6.9 g/dL (12.0-16.0); Mean Corpuscular HGB Conc 30 g/dL (31-36); Mean Corpuscular Hemoglobin 23 pg (27-31); Mean Corpuscular Volume 78 fL (80-97); Platelet Count 173 10^3/uL (150-450); Red Blood Count 2.96 10^6 /uL (3.70-4.87); Red Cell Distribution Width 23 % (10-15); White Blood Count 50.8 10^3/uL (3.5-10.8)
[2022-05-22 18:29] LABS: ABS Neutrophils 36.2 10^3/ul (1.5-7.7)
[2022-05-22 18:53] LABS: RBC Morphology Normal (Normal)
[2022-05-22 18:54] LABS: Anisocytosis 1+; Microcytosis 1+
[2022-05-22 18:55] LABS: ABS Basophils 0.5 10^3/ul (0-0.2); ABS Eosinophils 0.8 10^3/ul (0-0.6); ABS Lymphocytes 3.2 10^3/ul (1.0-4.8); ABS Monocytes 10.1 10^3/ul (0-0.8); ABS Nucleated RBC 0.4 10^3/ul; Eosinophil % 1.5 %; Lymphocyte % 6.3 %; Nucleated Red Blood Cells % 0.8
[2022-05-22 19:17] LABS: Albumin 3.6 g/dL (3.2-5.2); Calcium 8.3 mg/dL (8.6-10.3); Globulin 3.7 g/dL (2-4); Magnesium 2.2 mg/dL (1.9-2.7); Potassium 4.3 mmol/L (3.5-5.0); Total Bilirubin 0.4 mg/dL (0.2-1.0); Total Protein 7.3 g/dL (6.4-8.9)
[2022-05-22 19:28] LABS: TSH Ultra Thyroid Stim Horm 4.75 mcIU/mL (0.34-5.60)
[2022-05-22 19:43] LABS: High Sensitivity Troponin 1 Hr 9 pg/mL (<15)
[2022-05-22] MEDS ORDERED: Pantoprazole VIAL 40 MG VIAL IV ONE (19:53)
[2022-05-22] MEDS ORDERED: Pantoprazole 80 mg in NS BAG 80 MG/250 ML BAG IV ONE (19:53)
[2022-05-22 19:57] LABS: INR 1.51 (0.89-1.11)
[2022-05-22] MEDS ORDERED: Dextrose 50% Syringe 50 ml 25 GM/50 ML SYRINGE IV PUSH PRN (22:20)
[2022-05-22] MEDS ORDERED: Fluticasone NASAL SPRAY 50MCG 16 gm SPRAY BTL INTRANASAL PRN (22:20)
[2022-05-22] MEDS ORDERED: Albuterol HFA INHALER 8 gm MDI INH PRN (22:20)
[2022-05-22] MEDS ORDERED: Lidocaine 1.5% EPI 1:200,000 30 ML SDV ONE (23:54)
[2022-05-23 05:07] LABS: Hematocrit 25 % (35-47); Hemoglobin 7.7 g/dL (12.0-16.0); Mean Corpuscular HGB Conc 31 g/dL (31-36); Mean Corpuscular Hemoglobin 25 pg (27-31); Mean Corpuscular Volume 80 fL (80-97); Platelet Count 159 10^3/uL (150-450); Red Blood Count 3.15 10^6 /uL (3.70-4.87); Red Cell Distribution Width 22 % (10-15); White Blood Count 39.5 10^3/uL (3.5-10.8)
[2022-05-23 05:08] LABS: Urine Appearance Clear; Urine Color Yellow
[2022-05-23 05:09] LABS: Urine Bilirubin Negative (Negative); Urine Blood Negative (Negative); Urine Glucose 2+ (500mg/dL) (Negative); Urine Ketones Negative (Negative); Urine Nitrite Negative (Negative); Urine Protein Negative (Negative); Urine Urobilinogen 0.2 (Negative) (Negative)
[2022-05-23 05:14] LABS: INR 1.36 (0.89-1.11)
[2022-05-23 05:34] LABS: Calcium 8.3 mg/dL (8.6-10.3); Magnesium 2.2 mg/dL (1.9-2.7); Potassium 4.2 mmol/L (3.5-5.0); eGFR CKD-EPI 15.6 (>60)
[2022-05-23] MEDS: Lactated Ringers 1000 ml BAG 1,000 ML IV SCH ×2 (05:53→23:32)
[2022-05-23 08:12] LABS: ABS Basophils 0.1 10^3/ul (0-0.2); ABS Eosinophils 0.6 10^3/ul (0-0.6); ABS Lymphocytes 2.4 10^3/ul (1.0-4.8); ABS Monocytes 8.2 10^3/ul (0-0.8); ABS Neutrophils 28.2 10^3/ul (1.5-7.7); ABS Nucleated RBC 0.5 10^3/ul; Anisocytosis 2+; Eosinophil % 1.4 %; Hypochromasia 2+; Lymphocyte % 6.2 %; Nucleated Red Blood Cells % 1.2; Polychromasia 2+
[2022-05-23] MEDS: fentaNYL Patch Check Q Shift NOTE FOLLOW UP SCH ×2 (09:37→19:30)
[2022-05-23] MEDS: DULoxetine DR 30 mg CAP PO SCH (09:51)
[2022-05-23] MEDS: Pantoprazole VIAL 40 MG VIAL IV SCH ×2 (09:52→21:44)
[2022-05-23] MEDS: [UNRECOGNIZED DRUG - OTHER] INH SCH (09:53)
[2022-05-23] MEDS ORDERED: fentaNYL PATCH 25 MCG/HR 1 PATCH TRANSDERM SCH (12:00)
[2022-05-23] MEDS: HYDROcodone/Acetamin 10/325 TAB (NF) PO PRN (13:09)
[2022-05-23] MEDS ORDERED: Iron Sucrose 20 MG/ML 5 ML VIAL IV PUSH SCH (15:00)
[2022-05-23] MEDS ORDERED: Midazolam 10 mg/10 ml VIAL 1 mg/ml 10 ml VIAL (10 mg) ONE (15:43)
[2022-05-23] MEDS: OLOPATADINE 0.1% BOTH EYES SCH (17:41)
[2022-05-23] MEDS: Iron Sucrose 200 MG in NS 0.9% 100 ml IVPB SCH (18:36)
[2022-05-24] MEDS: HYDROcodone/Acetamin 10/325 TAB (NF) PO PRN ×2 (03:31→12:48)
[2022-05-24] MEDS ORDERED: Polyethylene Glycol 3350 17 GM PACKET PO PRN (04:20)
[2022-05-24 06:53] LABS: Hematocrit 26 % (35-47); Hemoglobin 8.1 g/dL (12.0-16.0); Mean Corpuscular HGB Conc 31 g/dL (31-36); Mean Corpuscular Hemoglobin 25 pg (27-31); Mean Corpuscular Volume 81 fL (80-97); Mean Platelet Volume 8.8 fL (7.4-10.4); Platelet Count 140 10^3/uL (150-450); Red Blood Count 3.22 10^6 /uL (3.70-4.87); Red Cell Distribution Width 22 % (10-15); White Blood Count 38.4 10^3/uL (3.5-10.8)
[2022-05-24] MEDS: fentaNYL Patch Check Q Shift NOTE FOLLOW UP SCH (07:12)
[2022-05-24 07:14] LABS: Calcium 8.7 mg/dL (8.6-10.3); Potassium 4.2 mmol/L (3.5-5.0); eGFR CKD-EPI 20.8 (>60)
[2022-05-24] MEDS: Pantoprazole VIAL 40 MG VIAL IV SCH (07:37)
[2022-05-24] MEDS: Iron Sucrose 200 MG in NS 0.9% 100 ml IVPB SCH (07:39)
[2022-05-24] MEDS: DULoxetine DR 30 mg CAP PO SCH (07:39)
[2022-05-24] MEDS: [UNRECOGNIZED DRUG - OTHER] INH SCH (10:07)
[2022-05-24] MEDS: OLOPATADINE 0.1% BOTH EYES SCH (11:45)
[2022-05-24 12:10] LABS: Anisocytosis 2+; Polychromasia 1+
[2022-05-24 12:11] LABS: ABS Basophils 0.8 10^3/ul (0-0.2); ABS Eosinophils 1.4 10^3/ul (0-0.6); ABS Lymphocytes 1.7 10^3/ul (1.0-4.8); ABS Monocytes 7.8 10^3/ul (0-0.8); ABS Neutrophils 26.7 10^3/ul (1.5-7.7); ABS Nucleated RBC 0.4 10^3/ul; Eosinophil % 3.5 %; Lymphocyte % 4.5 %; Microcytosis 1+; Nucleated Red Blood Cells % 0.9
[2022-05-24 13:16] VITALS: BP 100/54
== END 2022-05-24 14:40 | disposition home or self-care (01) | DRG 378 ==
LOC: ED 17:35 → EDHOLD 22:17 → SUATTDRO 22:17 → EDHOLD 05-23 10:16 → MEDTELE 05-23 11:18
PROVIDERS: ADMIT Internal Medicine; ATTEND Student in an Organized Health Care Education/Training Program

== ENCOUNTER 2022-06-09 11:36 | Inpatient (IN) ==
[2022-06-09 12:18] LABS: Hematocrit 21 % (35-47); Hemoglobin 6.2 g/dL (12.0-16.0); Mean Corpuscular HGB Conc 30 g/dL (31-36); Mean Corpuscular Hemoglobin 24 pg (27-31); Mean Corpuscular Volume 82 fL (80-97); Mean Platelet Volume 8.2 fL (7.4-10.4); Platelet Count 176 10^3/uL (150-450); Red Blood Count 2.53 10^6 /uL (3.70-4.87); Red Cell Distribution Width 23 % (10-15); White Blood Count 38.8 10^3/uL (3.5-10.8)
[2022-06-09 12:49] LABS: Albumin 3.6 g/dL (3.2-5.2); Calcium 8.8 mg/dL (8.6-10.3); Globulin 3.5 g/dL (2-4); Potassium 4.3 mmol/L (3.5-5.0); Total Bilirubin 0.4 mg/dL (0.2-1.0); Total Protein 7.1 g/dL (6.4-8.9); eGFR CKD-EPI 19.5 (>60)
[2022-06-09 15:26] LABS: Anisocytosis 2+; Polychromasia 1+; Stomatocytes 1+
[2022-06-09 15:32] LABS: ABS Basophils 0.1 10^3/ul (0-0.2); ABS Eosinophils 0.6 10^3/ul (0-0.6); ABS Lymphocytes 2.8 10^3/ul (1.0-4.8); ABS Monocytes 8.2 10^3/ul (0-0.8); ABS Nucleated RBC 0.3 10^3/ul; Eosinophil % 1.7 %; Lymphocyte % 7.2 %; Nucleated Red Blood Cells % 0.8
[2022-06-09] MEDS ORDERED: Albuterol 2.5mg/3 ml (0.083%) NEB.SOLN INH PRN (17:09)
[2022-06-09] MEDS ORDERED: Fluticasone NASAL SPRAY 50MCG 16 gm SPRAY BTL INTRANASAL PRN (17:09)
[2022-06-09] MEDS ORDERED: Albuterol HFA INHALER 8 gm MDI INH PRN (17:09)
[2022-06-09] MEDS ORDERED: Polyethylene Glycol 3350 17 GM PACKET PO PRN (17:09)
[2022-06-09] MEDS ORDERED: Senna TAB 8.6 mg TAB PO PRN (17:26)
[2022-06-09] MEDS ORDERED: Naloxone Nasal Spray 4 MG/0.1 ML NASAL.SPR INTRANASAL PRN (17:26)
[2022-06-09] MEDS ORDERED: HYDROcodone/Acetamin 10/325 TAB (NF) PO PRN (17:26)
[2022-06-09] MEDS ORDERED: Morphine 2 MG/ML SYRINGE IV PRN (17:39)
[2022-06-09] MEDS ORDERED: Zosyn per Pharmacy NOTE FOLLOW UP SCH (18:00)
[2022-06-09] MEDS ORDERED: Dextrose 50% Syringe 50 ml 25 GM/50 ML SYRINGE IV PUSH PRN (18:14)
[2022-06-09 20:00] LABS: Hematocrit 25 % (35-47); Hemoglobin 7.4 g/dL (12.0-16.0)
[2022-06-09] MEDS ORDERED: Zosyn 3.375 gm X 1 dose, then dose per Pharmacy IV ONE (20:00)
[2022-06-09] MEDS: fentaNYL PATCH 25 MCG/HR 1 PATCH TRANSDERM SCH (21:48)
[2022-06-09] MEDS: Pantoprazole VIAL 40 MG VIAL IV SCH (21:59)
[2022-06-09] MEDS: Potassium Chlor 20 meq TAB.ER PO SCH (21:59)
[2022-06-09] MEDS: Triamcinolone 0.025% OINT 15 GM TUBE TOPICAL SCH (23:50)
[2022-06-10] MEDS: HYDROcodone/Acetamin 10/325 TAB (NF) PO PRN ×3 (02:10→23:26)
[2022-06-10] MEDS: ZOSYN 3.375 GM Q8H per EXTENDED INFUSION IV SCH ×3 (02:11→18:43)
[2022-06-10 02:45] LABS: Urine Appearance Clear; Urine Bilirubin Negative (Negative); Urine Blood Negative (Negative); Urine Color Yellow; Urine Glucose Negative (Negative); Urine Ketones Negative (Negative); Urine Nitrite Negative (Negative); Urine Protein Negative (Negative); Urine Specific Gravity 1.015 (1.005-1.030); Urine Urobilinogen 0.2 (Negative) (Negative)
[2022-06-10 06:22] LABS: Hematocrit 24 % (35-47); Hemoglobin 7.6 g/dL (12.0-16.0); Mean Corpuscular HGB Conc 32 g/dL (31-36); Mean Corpuscular Hemoglobin 27 pg (27-31); Mean Corpuscular Volume 83 fL (80-97); Mean Platelet Volume 8.5 fL (7.4-10.4); Platelet Count 165 10^3/uL (150-450); Red Blood Count 2.86 10^6 /uL (3.70-4.87); Red Cell Distribution Width 22 % (10-15); White Blood Count 37.3 10^3/uL (3.5-10.8)
[2022-06-10 06:37] LABS: Calcium 8.6 mg/dL (8.6-10.3); Potassium 4.3 mmol/L (3.5-5.0); eGFR CKD-EPI 18.2 (>60)
[2022-06-10] MEDS: FLUTICAS/UMECLI/VILANT 100-62.5-25 MDI (NF) INH SCH (07:07)
[2022-06-10] MEDS: fentaNYL Patch Check Q Shift NOTE FOLLOW UP SCH ×2 (07:16→18:42)
[2022-06-10 07:26] LABS: Anisocytosis 2+
[2022-06-10 07:28] LABS: ABS Basophils 0.7 10^3/ul (0-0.2); ABS Eosinophils 0.8 10^3/ul (0-0.6); ABS Lymphocytes 2.4 10^3/ul (1.0-4.8); ABS Monocytes 8.4 10^3/ul (0-0.8); ABS Neutrophils 25.1 10^3/ul (1.5-7.7); ABS Nucleated RBC 0.6 10^3/ul; Eosinophil % 2.3 %; Lymphocyte % 6.5 %; Nucleated Red Blood Cells % 1.5; Polychromasia 1+
[2022-06-10] MEDS: Lidocaine PATCH 5% PATCH TRANSDERM SCH (09:20)
[2022-06-10] MEDS: Pantoprazole VIAL 40 MG VIAL IV SCH ×2 (09:23→21:27)
[2022-06-10] MEDS: DULoxetine DR 30 mg CAP PO SCH (09:24)
[2022-06-10] MEDS: Potassium Chlor 20 meq TAB.ER PO SCH ×2 (09:24→23:26)
[2022-06-10] MEDS: Triamcinolone 0.025% OINT 15 GM TUBE TOPICAL SCH ×2 (09:25→21:34)
[2022-06-11] MEDS: ZOSYN 3.375 GM Q8H per EXTENDED INFUSION IV SCH ×3 (01:59→17:48)
[2022-06-11 05:01] LABS: Hematocrit 22 % (35-47); Hemoglobin 6.7 g/dL (12.0-16.0); Mean Corpuscular HGB Conc 30 g/dL (31-36); Mean Corpuscular Hemoglobin 25 pg (27-31); Mean Corpuscular Volume 83 fL (80-97); Mean Platelet Volume 8.4 fL (7.4-10.4); Platelet Count 162 10^3/uL (150-450); Red Blood Count 2.69 10^6 /uL (3.70-4.87); Red Cell Distribution Width 22 % (10-15); White Blood Count 40.5 10^3/uL (3.5-10.8)
[2022-06-11 05:17] LABS: Calcium 8.2 mg/dL (8.6-10.3); eGFR CKD-EPI 17.9 (>60)
[2022-06-11] MEDS: FLUTICAS/UMECLI/VILANT 100-62.5-25 MDI (NF) INH SCH (07:23)
[2022-06-11] MEDS: fentaNYL Patch Check Q Shift NOTE FOLLOW UP SCH ×2 (07:45→18:39)
[2022-06-11] MEDS: HYDROcodone/Acetamin 10/325 TAB (NF) PO PRN (07:48)
[2022-06-11] MEDS: Pantoprazole VIAL 40 MG VIAL IV SCH ×2 (09:30→20:54)
[2022-06-11] MEDS: DULoxetine DR 30 mg CAP PO SCH (09:31)
[2022-06-11] MEDS: Lidocaine PATCH 5% PATCH TRANSDERM SCH (09:32)
[2022-06-11] MEDS: Potassium Chlor 20 meq TAB.ER PO SCH ×2 (09:32→22:51)
[2022-06-11] MEDS: Triamcinolone 0.025% OINT 15 GM TUBE TOPICAL SCH ×2 (09:33→23:24)
[2022-06-11 09:34] LABS: Anisocytosis 2+
[2022-06-11 09:35] LABS: Polychromasia 1+
[2022-06-11 09:36] LABS: ABS Basophils 0.9 10^3/ul (0-0.2); ABS Eosinophils 0.7 10^3/ul (0-0.6); ABS Lymphocytes 2.5 10^3/ul (1.0-4.8); ABS Monocytes 8.9 10^3/ul (0-0.8); ABS Neutrophils 27.4 10^3/ul (1.5-7.7); ABS Nucleated RBC 0.4 10^3/ul; Eosinophil % 1.7 %; Lymphocyte % 6.3 %; Nucleated Red Blood Cells % 1.1
[2022-06-11] MEDS ORDERED: fentaNYL 100 mcg/2 ml 50 MCG/ML VIAL ONE (15:02)
[2022-06-11] MEDS ORDERED: Midazolam 10 mg/10 ml VIAL 1 mg/ml 10 ml VIAL (10 mg) ONE (15:02)
[2022-06-11] MEDS: Iron Sucrose 200 MG in NS 0.9% 100 ml BAG 100 ML IVPB SCH (17:55)
[2022-06-11 19:00] LABS: Hematocrit 27 % (35-47); Hemoglobin 8.3 g/dL (12.0-16.0)
[2022-06-11] MEDS: Senna TAB 8.6 mg TAB PO SCH (23:24)
[2022-06-11] MEDS: Polyethylene Glycol 3350 17 GM PACKET PO SCH (23:24)
[2022-06-12] MEDS: ZOSYN 3.375 GM Q8H per EXTENDED INFUSION IV SCH ×2 (01:24→11:08)
[2022-06-12 05:55] LABS: Hematocrit 25 % (35-47); Hemoglobin 7.6 g/dL (12.0-16.0); Mean Corpuscular HGB Conc 30 g/dL (31-36); Mean Corpuscular Hemoglobin 26 pg (27-31); Mean Corpuscular Volume 84 fL (80-97); Mean Platelet Volume 8.4 fL (7.4-10.4); Platelet Count 159 10^3/uL (150-450); Red Blood Count 2.97 10^6 /uL (3.70-4.87); Red Cell Distribution Width 21 % (10-15)
[2022-06-12 06:04] LABS: ABS Basophils 0.7 10^3/ul (0-0.2); ABS Eosinophils 0.8 10^3/ul (0-0.6); ABS Lymphocytes 2.2 10^3/ul (1.0-4.8); ABS Monocytes 9.1 10^3/ul (0-0.8); ABS Neutrophils 26.2 10^3/ul (1.5-7.7); ABS Nucleated RBC 0.4 10^3/ul; Eosinophil % 2.2 %; Lymphocyte % 5.6 %; Nucleated Red Blood Cells % 1.1
[2022-06-12 06:24] LABS: Calcium 8.6 mg/dL (8.6-10.3); Potassium 4.6 mmol/L (3.5-5.0); eGFR CKD-EPI 21.9 (>60)
[2022-06-12] MEDS: fentaNYL Patch Check Q Shift NOTE FOLLOW UP SCH ×2 (07:24→18:37)
[2022-06-12] MEDS: FLUTICAS/UMECLI/VILANT 100-62.5-25 MDI (NF) INH SCH (07:40)
[2022-06-12] MEDS: Polyethylene Glycol 3350 17 GM PACKET PO SCH ×2 (09:55→22:06)
[2022-06-12] MEDS: Lidocaine PATCH 5% PATCH TRANSDERM SCH (09:56)
[2022-06-12] MEDS: Pantoprazole VIAL 40 MG VIAL IV SCH ×2 (09:57→21:59)
[2022-06-12] MEDS: Iron Sucrose 200 MG in NS 0.9% 100 ml BAG 100 ML IVPB SCH (10:05)
[2022-06-12] MEDS: DULoxetine DR 30 mg CAP PO SCH (10:05)
[2022-06-12] MEDS: Potassium Chlor 20 meq TAB.ER PO SCH ×2 (10:05→22:08)
[2022-06-12] MEDS: Triamcinolone 0.025% OINT 15 GM TUBE TOPICAL SCH ×2 (10:08→22:09)
[2022-06-12] MEDS: HYDROcodone/Acetamin 10/325 TAB (NF) PO PRN ×3 (10:13→22:07)
[2022-06-12] MEDS ORDERED: Imatinib 400 mg TAB (NF) PO SCH (13:00)
[2022-06-12] MEDS: fentaNYL PATCH 25 MCG/HR 1 PATCH TRANSDERM SCH (18:34)
[2022-06-12] MEDS: Senna TAB 8.6 mg TAB PO SCH (22:08)
[2022-06-13 06:10] LABS: Hematocrit 23 % (35-47); Mean Corpuscular HGB Conc 31 g/dL (31-36); Mean Corpuscular Hemoglobin 26 pg (27-31); Mean Corpuscular Volume 85 fL (80-97); Mean Platelet Volume 8.5 fL (7.4-10.4); Platelet Count 154 10^3/uL (150-450); Red Cell Distribution Width 21 % (10-15); White Blood Count 40.8 10^3/uL (3.5-10.8)
[2022-06-13 06:24] LABS: Calcium 8.4 mg/dL (8.6-10.3); Potassium 4.6 mmol/L (3.5-5.0); eGFR CKD-EPI 22.2 (>60)
[2022-06-13] MEDS: fentaNYL Patch Check Q Shift NOTE FOLLOW UP SCH ×2 (06:57→18:59)
[2022-06-13] MEDS: FLUTICAS/UMECLI/VILANT 100-62.5-25 MDI (NF) INH SCH (07:21)
[2022-06-13] MEDS: Lidocaine PATCH 5% PATCH TRANSDERM SCH (07:29)
[2022-06-13] MEDS: HYDROcodone/Acetamin 10/325 TAB (NF) PO PRN ×2 (07:39→20:00)
[2022-06-13] MEDS: DULoxetine DR 30 mg CAP PO SCH (07:39)
[2022-06-13] MEDS: Pantoprazole VIAL 40 MG VIAL IV SCH (07:40)
[2022-06-13] MEDS: Potassium Chlor 20 meq TAB.ER PO SCH ×2 (07:40→20:58)
[2022-06-13] MEDS: Polyethylene Glycol 3350 17 GM PACKET PO SCH ×2 (07:40→20:04)
[2022-06-13 08:34] LABS: ABS Basophils 0.8 10^3/ul (0-0.2); ABS Eosinophils 0.8 10^3/ul (0-0.6); ABS Lymphocytes 2.1 10^3/ul (1.0-4.8); ABS Monocytes 8.6 10^3/ul (0-0.8); ABS Neutrophils 28.5 10^3/ul (1.5-7.7); ABS Nucleated RBC 0.6 10^3/ul; Eosinophil % 1.9 %; Lymphocyte % 5.2 %; Nucleated Red Blood Cells % 1.4
[2022-06-13 08:35] LABS: Anisocytosis 2+; Polychromasia 1+
[2022-06-13] MEDS: Triamcinolone 0.025% OINT 15 GM TUBE TOPICAL SCH ×2 (10:20→20:31)
[2022-06-13] MEDS: Iron Sucrose 200 MG in NS 0.9% 100 ml BAG 100 ML IVPB SCH (11:00)
[2022-06-13] MEDS: IMATINIB 100 MG PO SCH (11:07)
[2022-06-13] MEDS: Senna TAB 8.6 mg TAB PO SCH (20:00)
[2022-06-13 21:06] LABS: Hematocrit 25 % (35-47); Hemoglobin 7.5 g/dL (12.0-16.0)
[2022-06-14] MEDS: fentaNYL Patch Check Q Shift NOTE FOLLOW UP SCH (07:04)
[2022-06-14 07:06] LABS: Hematocrit 24 % (35-47); Hemoglobin 7.4 g/dL (12.0-16.0); Mean Corpuscular HGB Conc 31 g/dL (31-36); Mean Corpuscular Hemoglobin 27 pg (27-31); Mean Corpuscular Volume 86 fL (80-97); Mean Platelet Volume 8.6 fL (7.4-10.4); Platelet Count 148 10^3/uL (150-450); Red Blood Count 2.79 10^6 /uL (3.70-4.87); Red Cell Distribution Width 21 % (10-15); White Blood Count 42.5 10^3/uL (3.5-10.8)
[2022-06-14 07:16] LABS: Calcium 8.6 mg/dL (8.6-10.3); Potassium 4.8 mmol/L (3.5-5.0)
[2022-06-14] MEDS: HYDROcodone/Acetamin 10/325 TAB (NF) PO PRN ×2 (07:23→11:41)
[2022-06-14] MEDS: FLUTICAS/UMECLI/VILANT 100-62.5-25 MDI (NF) INH SCH (07:46)
[2022-06-14] MEDS: Iron Sucrose 200 MG in NS 0.9% 100 ml BAG 100 ML IVPB SCH (07:57)
[2022-06-14] MEDS: DULoxetine DR 30 mg CAP PO SCH (07:59)
[2022-06-14] MEDS: Potassium Chlor 20 meq TAB.ER PO SCH (08:00)
[2022-06-14] MEDS: Lidocaine PATCH 5% PATCH TRANSDERM SCH (08:01)
[2022-06-14] MEDS: Polyethylene Glycol 3350 17 GM PACKET PO SCH (08:01)
[2022-06-14] MEDS: IMATINIB 100 MG PO SCH (08:09)
[2022-06-14 09:33] LABS: ABS Basophils 0.6 10^3/ul (0-0.2); ABS Monocytes 8.6 10^3/ul (0-0.8); ABS Neutrophils 30.3 10^3/ul (1.5-7.7); ABS Nucleated RBC 0.5 10^3/ul; Anisocytosis 2+; Eosinophil % 2.4 %; Lymphocyte % 4.6 %; Nucleated Red Blood Cells % 1.1; Polychromasia 1+
[2022-06-14] MEDS: Triamcinolone 0.025% OINT 15 GM TUBE TOPICAL SCH (10:26)
[2022-06-14 11:23] VITALS: BP 117/54
== END 2022-06-14 13:30 | disposition home or self-care (01) | DRG 811 ==
LOC: ED 11:36 → EDHOLD 16:01 → SUATTDRO 16:01 → EDHOLD 17:37 → MED 17:43
PROVIDERS: ADMIT Family Medicine; ATTEND Internal Medicine

== ENCOUNTER 2022-09-16 16:55 | Observation (INO) ==
[2022-09-16 17:38] LABS: Hematocrit 32 % (35-47); Hemoglobin 10.2 g/dL (12.0-16.0); Mean Corpuscular HGB Conc 32 g/dL (31-36); Mean Corpuscular Hemoglobin 25 pg (27-31); Mean Corpuscular Volume 78 fL (80-97); Mean Platelet Volume 7.2 fL (7.4-10.4); Platelet Count 141 10^3/uL (150-450); Red Cell Distribution Width 18 % (10-15); White Blood Count 8.7 10^3/uL (3.5-10.8)
[2022-09-16 17:49] LABS: Activated Partial Thrombo Time 31.1 seconds (26.0-38.0); INR 1.09 (0.88-1.18)
[2022-09-16 18:13] LABS: ABS Eosinophils 0.1 10^3/ul (0-0.6); ABS Lymphocytes 0.5 10^3/ul (1.0-4.8); ABS Monocytes 1.8 10^3/ul (0-0.8); ABS Neutrophils 6.4 10^3/ul (1.5-7.7); Eosinophil % 0.7 %; Lymphocyte % 5.5 %; Nucleated Red Blood Cells % 0.1
[2022-09-16 18:18] LABS: Albumin 4.3 g/dL (3.2-5.2); Albumin/Globulin Ratio 1.3 (1-3); C Reactive Protein 27.41 mg/L (<8.01); Calcium 8.8 mg/dL (8.6-10.3); Globulin 3.3 g/dL (2-4); Total Bilirubin 0.4 mg/dL (0.2-1.0); Total Protein 7.6 g/dL (6.4-8.9); eGFR CKD-EPI 18.7 (>60)
[2022-09-16 18:59] LABS: Erythrocyte Sed Rate 71 mm/Hr (0-29)
[2022-09-16 19:38] LABS: High Sensitivity Troponin 1 Hr 19 pg/mL (<15)
[2022-09-17] MEDS ORDERED: Dextrose 50% Syringe 50 ml 25 GM/50 ML SYRINGE IV PUSH PRN (01:19)
[2022-09-17 05:34] LABS: Hematocrit 31 % (35-47); Hemoglobin 9.8 g/dL (12.0-16.0); Mean Corpuscular HGB Conc 32 g/dL (31-36); Mean Corpuscular Hemoglobin 25 pg (27-31); Mean Corpuscular Volume 78 fL (80-97); Mean Platelet Volume 7.3 fL (7.4-10.4); Platelet Count 130 10^3/uL (150-450); Red Blood Count 3.99 10^6 /uL (3.70-4.87); Red Cell Distribution Width 18 % (10-15); White Blood Count 6.5 10^3/uL (3.5-10.8)
[2022-09-17 06:27] LABS: Calcium 8.4 mg/dL (8.6-10.3); Potassium 3.7 mmol/L (3.5-5.0); eGFR CKD-EPI 22.9 (>60)
[2022-09-17] MEDS ORDERED: fentaNYL Patch Check Q Shift NOTE FOLLOW UP SCH (07:00)
[2022-09-17] MEDS ORDERED: fentaNYL PATCH 25 MCG/HR 1 PATCH TRANSDERM SCH (08:00)
[2022-09-17 08:32] LABS: Anisocytosis 1+
[2022-09-17 08:34] LABS: Hypochromasia 1+
[2022-09-17 08:36] LABS: ABS Neutrophils 3.3 10^3/ul (1.5-7.7); Eosinophil % 0.7 %
[2022-09-17] MEDS ORDERED: FLUTICAS/UMECLI/VILANT 100-62.5-25 MDI (NF) INH SCH (09:00)
[2022-09-17] MEDS ORDERED: DULoxetine DR 30 mg CAP PO SCH (09:00)
[2022-09-17] MEDS ORDERED: Sulfur Hexaflouride MICROSPHR 25 MG VIAL ONE (10:58)
[2022-09-17 13:48] VITALS: BP 118/70
== END 2022-09-17 13:50 | disposition home or self-care (01) ==
LOC: ED 16:55 → EDHOLD 16:55 → SUATTDRO 20:57 → EDHOLD 09-17 03:27 → UNDODISOB 09-17 13:50 → EDHOLD 09-17 20:08
PROVIDERS: ADMIT Internal Medicine; ATTEND Internal Medicine

== ENCOUNTER 2023-09-30 14:06 | Inpatient (IN) ==
[2023-09-30] MEDS: HYDROcodone/Acetamin 10/325 TAB (NF) PO ONE (15:52)
[2023-09-30] MEDS: oxyCODONE/Acetamin 5/325 mg TAB PO ONE (20:24)
[2023-09-30 22:24] LABS: Hematocrit 24.9 % (35-45); Hemoglobin 7.7 g/dL (11.5-14.3); Mean Corpuscular Volume 87.2 fL (80-97); Mean Platelet Volume 7.4 fL (7.5-11.2); Platelet Count 125 10^3/uL (150-450); Red Blood Count 2.85 10^6/uL (3.63-4.92); White Blood Count 41.8 10^3/uL (3.8-11.8)
[2023-09-30 22:50] LABS: ALT 5 U/L (7-52); Albumin 3.6 g/dL (3.2-5.2); Albumin/Globulin Ratio 0.8 (1-3); Alkaline Phosphatase 63 U/L (35-149); Anion Gap 6 mmol/L (2-16); Blood Urea Nitrogen 34 mg/dL (6-24); C Reactive Protein 161.39 mg/L (<8.01); CO2 Carbon Dioxide 34 mmol/L (22-32); Chloride 96 mmol/L (101-111); Creatinine, Serum 2.53 mg/dL (0.51-0.95); Globulin 4.3 g/dL (2-4); Glucose 153 mg/dL (70-100); Sodium 136 mmol/L (135-145); Total Bilirubin 0.8 mg/dL (0.2-1.0); Total Protein 7.9 g/dL (6.4-8.9); eGFR CKD-EPI 18.6 (>60)
[2023-09-30 23:17] LABS: ABS Basophils 0.3 10^3/uL (0.0-0.1); ABS Eosinophils 0.5 10^3/uL (0.0-0.5); ABS Lymphocytes 1.6 10^3/uL (1.0-4.8); ABS Neutrophils 26.4 10^3/uL (1.5-7.6); ABS Nucleated RBC 0.09 10^3/ul; Anisocytosis 1+; Eosinophil % 1.3 %; Hypochromasia 1+; Lymphocyte % 3.7 %; Nucleated Red Blood Cells % 0.2 %/100WBC (0.0-0.8)
[2023-09-30] MEDS: fentaNYL PATCH 25 MCG/HR 1 PATCH TRANSDERM SCH (23:36)
[2023-09-30] MEDS: cefTRIAXone ADVAN VIAL 1 GM in NS 0.9% 50 ML 50 ML IVPB SCH (23:36)
[2023-10-01] MEDS ORDERED: Dextrose 50% Syringe 50 ml 25 GM/50 ML SYRINGE IV PUSH PRN (00:25)
[2023-10-01] MEDS: Insulin GLARGINE 100 un/ml 10 ml VIAL SUBCUT SCH (01:41)
[2023-10-01 02:30] LABS: Potassium Redraw 4.1 mmol/L (3.5-5.0)
[2023-10-01] MEDS: Heparin 5000 UNITS/ML 1 mL VIAL SUBCUT SCH (07:16)
[2023-10-01] MEDS: fentaNYL Patch Check Q Shift NOTE FOLLOW UP SCH (07:20)
[2023-10-01] MEDS: CMCS:FLUTICAS/UMECLI/VILANT 100-62.5-25 MDI (NF) INH SCH (08:32)
[2023-10-01] MEDS: IMATINIB 100 MG PO SCH (08:55)
[2023-10-01] MEDS: DULoxetine DR 30 mg CAP PO SCH (08:55)
[2023-10-01] MEDS ORDERED: Insulin GLARGINE 100 un/ml 10 ml VIAL SUBCUT SCH (09:00)
[2023-10-01] MEDS ORDERED: Vancomycin per Pharmacy 1 EA NOTE FOLLOW UP SCH (11:00)
[2023-10-01] MEDS: Vancomycin 2,000 MG in NS 0.9% 500 ml BAG 500 ML IVPB ONE (11:19)
[2023-10-01] MEDS: ACETAMINOPHEN PO PRN (11:27)
[2023-10-01] MEDS: HYDROCODONE PO PRN (11:27)
[2023-10-01 19:00] LABS: Uric Acid 16.7 mg/dL (2.3-6.6)
[2023-10-01 20:25] LABS: % Iron Saturation 9 % (15-55); .Transferrin 163 mg/dL (203-362); Iron < 20 ug/dL (50-212); Total Iron Binding Capacity 228 mcg/dL (250-450); Unsaturated Iron Binding 208 ug/dL
[2023-10-01 20:44] LABS: Ferritin 316.6 ng/mL (11-307)
[2023-10-02 06:25] LABS: Hematocrit 22.9 % (35-45); Hemoglobin 7.2 g/dL (11.5-14.3); Mean Corpuscular Hemoglobin 26.8 pg (27-33); Mean Corpuscular Hgb Conc 31.3 g/dL (31-36); Mean Corpuscular Volume 85.5 fL (80-97); Mean Platelet Volume 7.4 fL (7.5-11.2); Platelet Count 123 10^3/uL (150-450); Red Blood Count 2.68 10^6/uL (3.63-4.92); Red Cell Distribution Width 18.8 % (12-17); White Blood Count 53.5 10^3/uL (3.8-11.8)
[2023-10-02 06:34] LABS: Calcium 8.7 mg/dL (8.6-10.3); Creatinine, Serum 2.96 mg/dL (0.51-0.95); eGFR CKD-EPI 15.4 (>60)
[2023-10-02 06:56] LABS: Vancomycin Random 13.6 mcg/mL
[2023-10-02 07:42] LABS: ABS Basophils 0.3 10^3/uL (0.0-0.1); ABS Eosinophils 0.8 10^3/uL (0.0-0.5); ABS Lymphocytes 2.2 10^3/uL (1.0-4.8); ABS Monocytes 15.6 10^3/uL (0.0-0.9); ABS Neutrophils 34.6 10^3/uL (1.5-7.6); Anisocytosis 2+; Eosinophil % 1.5 %; Lymphocyte % 4.1 %; Nucleated Red Blood Cells % 0.2 %/100WBC (0.0-0.8); Polychromasia 1+
[2023-10-02] MEDS: Vancomycin Random Level NOTE FOLLOW UP ONE (10:05)
[2023-10-02] MEDS: Vancomycin 500 MG in NS 0.9% 250 ML IVPB ONE (13:04)
[2023-10-03 07:33] LABS: Vancomycin Random 12.7 mcg/mL
[2023-10-03 07:34] LABS: C Reactive Protein 242.4 mg/L (<8.01); Calcium 8.5 mg/dL (8.6-10.3); Creatinine, Serum 3.23 mg/dL (0.51-0.95); Potassium 4.6 mmol/L (3.5-5.0); eGFR CKD-EPI 13.9 (>60)
[2023-10-03 07:46] LABS: Hematocrit 21.9 % (35-45); Hemoglobin 6.5 g/dL (11.5-14.3); Mean Corpuscular Hemoglobin 26.9 pg (27-33); Mean Corpuscular Hgb Conc 29.9 g/dL (31-36); Red Blood Count 2.43 10^6/uL (3.63-4.92); White Blood Count 63.8 10^3/uL (3.8-11.8)
[2023-10-03 09:12] LABS: ABS Basophils 0.3 10^3/uL (0.0-0.1); ABS Eosinophils 0.7 10^3/uL (0.0-0.5); ABS Lymphocytes 1.7 10^3/uL (1.0-4.8); ABS Monocytes 19.6 10^3/uL (0.0-0.9); ABS Neutrophils 41.5 10^3/uL (1.5-7.6); ABS Nucleated RBC 0.11 10^3/ul; Anisocytosis 1+; Lymphocyte % 2.7 %; Mean Platelet Volume 7.6 fL (7.5-11.2); Nucleated Red Blood Cells % 0.2 %/100WBC (0.0-0.8); Platelet Count 94 10^3/uL (150-450)
[2023-10-03] MEDS: Vancomycin Random Level NOTE FOLLOW UP ONE (15:11)
[2023-10-03] MEDS: cefTRIAXone 2 gm/50 mL D5W 2 GM/50 ML BAG IV SCH (15:11)
[2023-10-03] MEDS: Vancomycin 500 MG in NS 0.9% 250 ML IVPB ONE (16:11)
[2023-10-03] MEDS: Lactated Ringers 1000 ml BAG 1,000 ML IV SCH (16:11)
[2023-10-04 13:12] LABS: Calcium 8.7 mg/dL (8.6-10.3); Creatinine, Serum 2.68 mg/dL (0.51-0.95); Potassium 4.3 mmol/L (3.5-5.0); eGFR CKD-EPI 17.3 (>60)
[2023-10-04 13:15] LABS: Hemoglobin 7.9 g/dL (11.5-14.3); Mean Corpuscular Hemoglobin 27.1 pg (27-33); Mean Corpuscular Hgb Conc 31.5 g/dL (31-36); Mean Corpuscular Volume 85.8 fL (80-97); Mean Platelet Volume 7.6 fL (7.5-11.2); Platelet Count 127 10^3/uL (150-450); Red Blood Count 2.92 10^6/uL (3.63-4.92); Red Cell Distribution Width 18.2 % (12-17); White Blood Count 81.3 10^3/uL (3.8-11.8)
[2023-10-04 14:12] LABS: ABS Basophils 0.4 10^3/uL (0.0-0.1); ABS Eosinophils 0.9 10^3/uL (0.0-0.5); ABS Lymphocytes 1.6 10^3/uL (1.0-4.8); ABS Monocytes 21.8 10^3/uL (0.0-0.9); ABS Neutrophils 56.6 10^3/uL (1.5-7.6); ABS Nucleated RBC 0.16 10^3/ul; Anisocytosis 1+; Eosinophil % 1.1 %; Nucleated Red Blood Cells % 0.2 %/100WBC (0.0-0.8)
[2023-10-04] MEDS: Vancomycin Random Level NOTE FOLLOW UP ONE (14:19)
[2023-10-04] MEDS: Vancomycin 750 MG in NS 0.9% 250 ML IVPB ONE (16:36)
[2023-10-04] MEDS: Furosemide 20 mg/2 ml IV VIAL IV SLOW PU ONE (18:02)
[2023-10-04] MEDS ORDERED: Rasburicase 1.5 MG VIAL(NF) IVPB ONE (19:33)
[2023-10-04] MEDS: Rasburicase 3 MG in NS 0.9% 50 ML 48 ML IVPB ONE (21:56)
[2023-10-04] MEDS: Acetaminophen IV 1 GM/100ML 1,000 MG/100 ML BAG IV ONE (22:18)
[2023-10-05 06:50] LABS: Hematocrit 25.5 % (35-45); Hemoglobin 7.7 g/dL (11.5-14.3); Mean Corpuscular Hemoglobin 26.7 pg (27-33); Mean Corpuscular Hgb Conc 30.4 g/dL (31-36); Mean Corpuscular Volume 87.9 fL (80-97); Mean Platelet Volume 7.5 fL (7.5-11.2); Platelet Count 114 10^3/uL (150-450); White Blood Count 88.2 10^3/uL (3.8-11.8)
[2023-10-05 06:55] LABS: Vancomycin Random 14.6 mcg/mL
[2023-10-05 07:07] LABS: Calcium 8.4 mg/dL (8.6-10.3); Creatinine, Serum 2.67 mg/dL (0.51-0.95); Magnesium 1.9 mg/dL (1.9-2.7); Potassium 4.3 mmol/L (3.5-5.0); eGFR CKD-EPI 17.4 (>60)
[2023-10-05 08:50] LABS: ABS Basophils 0.4 10^3/uL (0.0-0.1); ABS Eosinophils 0.5 10^3/uL (0.0-0.5); ABS Lymphocytes 1.7 10^3/uL (1.0-4.8); ABS Monocytes 28.9 10^3/uL (0.0-0.9); ABS Neutrophils 56.7 10^3/uL (1.5-7.6); ABS Nucleated RBC 0.13 10^3/ul; Eosinophil % 0.6 %; Lymphocyte % 1.9 %; Nucleated Red Blood Cells % 0.1 %/100WBC (0.0-0.8)
[2023-10-05 08:51] LABS: Anisocytosis 2+
[2023-10-05] MEDS: Saline NASAL SPRAY 0.65% BTL BOTH NARES PRN (10:50)
[2023-10-05] MEDS: Vancomycin Random Level NOTE FOLLOW UP ONE (10:51)
[2023-10-05 11:38] LABS: Uric Acid 6.6 mg/dL (2.3-6.6)
[2023-10-05 12:44] LABS: Hepatitis B Surface Antigen Nonreactive (Nonreactive)
[2023-10-05 13:01] LABS: Hepatitis B Surface Ab Not Immune (Immune)
[2023-10-05 13:02] LABS: Hepatitis C Antibody Negative (Negative)
[2023-10-06 06:09] LABS: Calcium 9.1 mg/dL (8.6-10.3); Creatinine, Serum 2.27 mg/dL (0.51-0.95); Potassium 4.1 mmol/L (3.5-5.0); eGFR CKD-EPI 21.2 (>60)
[2023-10-06 06:10] LABS: Hematocrit 24.5 % (35-45); Hemoglobin 7.5 g/dL (11.5-14.3); Mean Corpuscular Hemoglobin 26.4 pg (27-33); Mean Corpuscular Hgb Conc 30.5 g/dL (31-36); Mean Corpuscular Volume 86.5 fL (80-97); Mean Platelet Volume 7.5 fL (7.5-11.2); Platelet Count 107 10^3/uL (150-450); Red Blood Count 2.83 10^6/uL (3.63-4.92); Red Cell Distribution Width 18.2 % (12-17); White Blood Count 93.3 10^3/uL (3.8-11.8)
[2023-10-06 06:47] LABS: ABS Basophils 0.3 10^3/uL (0.0-0.1); ABS Eosinophils 0.7 10^3/uL (0.0-0.5); ABS Lymphocytes 1.2 10^3/uL (1.0-4.8); ABS Neutrophils 63.1 10^3/uL (1.5-7.6); ABS Nucleated RBC 0.14 10^3/ul; Anisocytosis 1+; Eosinophil % 0.8 %; Hypochromasia 1+; Lymphocyte % 1.3 %; Nucleated Red Blood Cells % 0.1 %/100WBC (0.0-0.8); Polychromasia 1+
[2023-10-06 12:15] LABS: C Reactive Protein 384.9 mg/L (<8.01)
[2023-10-06 15:25] LABS: Body Fluid Total Nucleated 9270 /mcL
[2023-10-06 15:46] LABS: Body Fluid Appearance Bloody; Body Fluid Color Pink; Body Fluid Source Synovial Fluid
[2023-10-06 16:03] LABS: Body Fluid Mono 5 %; Body Fluid Total Cells Counted 200
[2023-10-06] MEDS: fentaNYL PATCH 12 MCG/HR 1 PATCH TRANSDERM SCH (17:03)
[2023-10-06] MEDS: fentaNYL PATCH 25 MCG/HR 1 PATCH TRANSDERM SCH (17:06)
[2023-10-06] MEDS: cefTRIAXone 2 gm/50 mL D5W 2 GM/50 ML BAG IV SCH (18:38)
[2023-10-06] MEDS: fentaNYL Patch Check Q Shift NOTE FOLLOW UP SCH ×2 (19:14→19:15)
[2023-10-07 07:03] LABS: Hemoglobin 7.5 g/dL (11.5-14.3); Mean Corpuscular Hemoglobin 26.2 pg (27-33); Mean Corpuscular Volume 87.2 fL (80-97); Red Blood Count 2.87 10^6/uL (3.63-4.92); Red Cell Distribution Width 18.4 % (12-17)
[2023-10-07 07:07] LABS: Calcium 9.1 mg/dL (8.6-10.3); Creatinine, Serum 2.22 mg/dL (0.51-0.95); eGFR CKD-EPI 21.7 (>60)
[2023-10-07 08:34] LABS: ABS Basophils 0.2 10^3/uL (0.0-0.1); ABS Eosinophils 1.4 10^3/uL (0.0-0.5); ABS Lymphocytes 1.4 10^3/uL (1.0-4.8); ABS Monocytes 25.9 10^3/uL (0.0-0.9); ABS Neutrophils 65.2 10^3/uL (1.5-7.6); Anisocytosis 2+; Eosinophil % 1.4 %; Hypochromasia 2+; Lymphocyte % 1.5 %; Mean Platelet Volume 7.9 fL (7.5-11.2); Nucleated Red Blood Cells % 0.2 %/100WBC (0.0-0.8); Platelet Count 115 10^3/uL (150-450); Polychromasia 1+
[2023-10-07] MEDS: Albuterol HFA INHALER 8 gm MDI INH PRN (20:15)
[2023-10-08 01:32] LABS: High Sensitivity Troponin 1 Hr 28 pg/mL (<15)
[2023-10-08 02:36] LABS: High Sensitivity Troponin 3 Hr 39 pg/mL (<15)
[2023-10-08] MEDS ORDERED: Magnesium Hydroxide LIQ 30 ML UDC PO PRN (08:48)
[2023-10-08] MEDS ORDERED: Polyethylene Glycol 3350 17 GM PACKET PO PRN (08:48)
[2023-10-08] MEDS: Al Hydrox/Mg Hydrox/Simet LIQ 30 ML UDC PO ONE (08:57)
[2023-10-08] MEDS: Insulin GLARGINE 100 un/ml 10 ml VIAL SUBCUT SCH (08:58)
[2023-10-08 09:13] LABS: ABS Basophils 0.4 10^3/uL (0.0-0.1); ABS Eosinophils 0.3 10^3/uL (0.0-0.5); ABS Lymphocytes 1.7 10^3/uL (1.0-4.8); ABS Neutrophils 62.3 10^3/uL (1.5-7.6); ABS Nucleated RBC 0.04 10^3/ul; Anisocytosis 1+; Eosinophil % 0.4 %; Hematocrit 24.3 % (35-45); Hemoglobin 7.3 g/dL (11.5-14.3); Lymphocyte % 2.1 %; Mean Corpuscular Hemoglobin 26.1 pg (27-33); Mean Corpuscular Hgb Conc 29.8 g/dL (31-36); Mean Corpuscular Volume 87.5 fL (80-97); Mean Platelet Volume 8.1 fL (7.5-11.2); Platelet Count 105 10^3/uL (150-450); Red Blood Count 2.78 10^6/uL (3.63-4.92); Red Cell Distribution Width 18.8 % (12-17); White Blood Count 80.8 10^3/uL (3.8-11.8)
[2023-10-08 10:02] LABS: Calcium 8.6 mg/dL (8.6-10.3); Creatinine, Serum 2.16 mg/dL (0.51-0.95); Potassium 4.4 mmol/L (3.5-5.0); eGFR CKD-EPI 22.5 (>60)
[2023-10-08] MEDS ORDERED: Naloxone 0.4 mg VIAL 0.4 mg/ml 1 ml VIAL IV PUSH PRN (10:35)
[2023-10-08] MEDS ORDERED: Flumazenil 0.5 mg/5 ml 0.1 MG/ML 5 ml VIAL IV PRN (10:35)
[2023-10-08] MEDS: Bumetanide IV 0.25 MG/ML 4 ml VIAL (1 mg) IV SLOW PU ONE (14:24)
[2023-10-08 15:59] LABS: B. burgdorferi PCR Negative (Negative); B. garinii/B. afzellii PCR Negative (Negative)
[2023-10-08 18:03] LABS: PCO2 Arterial 44 mmHg (35-45); PO2 Arterial 67 mmHg (80-100)
[2023-10-08] MEDS: methylPREDNISolone SOD SUCC 40 mg/ml 1 ml VIAL IV SCH (18:35)
[2023-10-08] MEDS: fentaNYL 100 mcg/2 ml 50 MCG/ML VIAL IV SLOW PU ONE (20:16)
[2023-10-08] MEDS: Midazolam 10 mg/10 ml VIAL 1 mg/ml 10 ml VIAL (10 mg) IV SLOW PU ONE (20:16)
[2023-10-08] MEDS: fentaNYL 100 mcg/2 ml 50 MCG/ML VIAL ONE (20:17)
[2023-10-08] MEDS: Midazolam 2 mg/2 ml VIAL 1 mg/ml 2 ml VIAL (2 mg) ONE ×2 (20:17)
[2023-10-08 20:34] LABS: Calcium 8.7 mg/dL (8.6-10.3); Creatinine, Serum 2.42 mg/dL (0.51-0.95); Phosphorus 5.5 mg/dL (2.5-5.0); Potassium 4.5 mmol/L (3.5-5.0); Uric Acid 10.5 mg/dL (2.3-6.6); eGFR CKD-EPI 19.6 (>60)
[2023-10-08] MEDS ORDERED: Magnesium Hydroxide LIQ 30 ML UDC PO SCH (21:00)
[2023-10-09] MEDS: Senna TAB 8.6 mg TAB PO PRN (04:37)
[2023-10-09 06:21] LABS: Hematocrit 23.3 % (35-45); Hemoglobin 7.1 g/dL (11.5-14.3); Mean Corpuscular Hemoglobin 26.2 pg (27-33); Mean Corpuscular Hgb Conc 30.4 g/dL (31-36); Mean Corpuscular Volume 86.4 fL (80-97); Mean Platelet Volume 8.2 fL (7.5-11.2); Platelet Count 101 10^3/uL (150-450); Red Blood Count 2.69 10^6/uL (3.63-4.92); Red Cell Distribution Width 19.1 % (12-17); White Blood Count 71.2 10^3/uL (3.8-11.8)
[2023-10-09 06:30] LABS: Calcium 8.6 mg/dL (8.6-10.3); Creatinine, Serum 2.2 mg/dL (0.51-0.95); Magnesium 2.3 mg/dL (1.9-2.7); Phosphorus 5.5 mg/dL (2.5-5.0); Potassium 4.4 mmol/L (3.5-5.0); Uric Acid 11.2 mg/dL (2.3-6.6)
[2023-10-09 08:30] LABS: ABS Basophils 0.2 10^3/uL (0.0-0.1); ABS Eosinophils 0.1 10^3/uL (0.0-0.5); ABS Lymphocytes 1.4 10^3/uL (1.0-4.8); ABS Monocytes 10.5 10^3/uL (0.0-0.9); ABS Neutrophils 59.1 10^3/uL (1.5-7.6); ABS Nucleated RBC 0.09 10^3/ul; Anisocytosis 2+; Eosinophil % 0.1 %; Hypochromasia 1+; Nucleated Red Blood Cells % 0.1 %/100WBC (0.0-0.8); Polychromasia 1+
[2023-10-09] MEDS: Insulin GLARGINE 100 un/ml 10 ml VIAL SUBCUT SCH (10:36)
[2023-10-09] MEDS: Polyethylene Glycol 3350 17 GM PACKET PO SCH (10:37)
[2023-10-09 12:29] LABS: Calcium 8.6 mg/dL (8.6-10.3); Creatinine, Serum 2.09 mg/dL (0.51-0.95); Phosphorus 5.1 mg/dL (2.5-5.0); Potassium 4.4 mmol/L (3.5-5.0); Uric Acid 11.5 mg/dL (2.3-6.6); eGFR CKD-EPI 23.4 (>60)
[2023-10-09] MEDS ORDERED: Rasburicase 1.5 MG VIAL(NF) IVPB ONE (12:30)
[2023-10-09] MEDS: Bumetanide IV 0.25 MG/ML 4 ml VIAL (1 mg) IV SLOW PU ONE (15:37)
[2023-10-09] MEDS: Rasburicase 3 MG in NS 0.9% 50 ML 48 ML IVPB ONE (16:27)
[2023-10-09 20:29] LABS: Calcium 8.9 mg/dL (8.6-10.3); Creatinine, Serum 1.99 mg/dL (0.51-0.95); Potassium 4.4 mmol/L (3.5-5.0); Uric Acid 10.4 mg/dL (2.3-6.6); eGFR CKD-EPI 24.8 (>60)
[2023-10-09] MEDS ORDERED: Insulin GLARGINE 100 un/ml 10 ml VIAL SUBCUT SCH (21:00)
[2023-10-10 04:19] LABS: Hematocrit 24.5 % (35-45); Hemoglobin 7.6 g/dL (11.5-14.3); Mean Corpuscular Hemoglobin 26.6 pg (27-33); Mean Corpuscular Hgb Conc 31.1 g/dL (31-36); Mean Corpuscular Volume 85.7 fL (80-97); Mean Platelet Volume 8.3 fL (7.5-11.2); Platelet Count 104 10^3/uL (150-450); Red Blood Count 2.86 10^6/uL (3.63-4.92); Red Cell Distribution Width 18.7 % (12-17)
[2023-10-10 04:22] LABS: Calcium 9.1 mg/dL (8.6-10.3); Creatinine, Serum 1.83 mg/dL (0.51-0.95); Phosphorus 5.1 mg/dL (2.5-5.0); Potassium 4.7 mmol/L (3.5-5.0); Uric Acid 8.7 mg/dL (2.3-6.6); eGFR CKD-EPI 27.4 (>60)
[2023-10-10 04:59] LABS: ABS Basophils 0.4 10^3/uL (0.0-0.1); ABS Lymphocytes 1.7 10^3/uL (1.0-4.8); ABS Monocytes 9.5 10^3/uL (0.0-0.9); ABS Neutrophils 45.4 10^3/uL (1.5-7.6); ABS Nucleated RBC 0.18 10^3/ul; Anisocytosis 1+; Eosinophil % 0.1 %; Hypochromasia 1+; Lymphocyte % 2.9 %; Nucleated Red Blood Cells % 0.3 %/100WBC (0.0-0.8); Polychromasia 1+
[2023-10-10 11:59] LABS: Calcium 8.9 mg/dL (8.6-10.3); Creatinine, Serum 1.98 mg/dL (0.51-0.95); Phosphorus 5.1 mg/dL (2.5-5.0); Potassium 4.4 mmol/L (3.5-5.0); Uric Acid 7.5 mg/dL (2.3-6.6); eGFR CKD-EPI 24.9 (>60)
[2023-10-10 20:26] LABS: Calcium 8.9 mg/dL (8.6-10.3); Creatinine, Serum 2.02 mg/dL (0.51-0.95); Magnesium 2.4 mg/dL (1.9-2.7); Phosphorus 5.8 mg/dL (2.5-5.0); Potassium 4.5 mmol/L (3.5-5.0); Uric Acid 6.9 mg/dL (2.3-6.6); eGFR CKD-EPI 24.3 (>60)
[2023-10-11] MEDS: Insulin GLARGINE 100 un/ml 10 ml VIAL SUBCUT SCH (08:09)
[2023-10-11 08:13] LABS: Hematocrit 25.3 % (35-45); Hemoglobin 7.9 g/dL (11.5-14.3); Mean Corpuscular Hemoglobin 27.2 pg (27-33); Mean Corpuscular Hgb Conc 31.4 g/dL (31-36); Mean Corpuscular Volume 86.7 fL (80-97); Mean Platelet Volume 8.7 fL (7.5-11.2); Platelet Count 111 10^3/uL (150-450); Red Blood Count 2.91 10^6/uL (3.63-4.92); Red Cell Distribution Width 18.7 % (12-17); White Blood Count 28.3 10^3/uL (3.8-11.8)
[2023-10-11 08:28] LABS: Calcium 8.8 mg/dL (8.6-10.3); Creatinine, Serum 2.04 mg/dL (0.51-0.95); Magnesium 2.6 mg/dL (1.9-2.7); Phosphorus 5.9 mg/dL (2.5-5.0); eGFR CKD-EPI 24.1 (>60)
[2023-10-11] MEDS: Insulin GLARGINE 100 un/ml 10 ml VIAL ONE (08:52)
[2023-10-11 09:53] LABS: ABS Basophils 0.1 10^3/uL (0.0-0.1); ABS Lymphocytes 0.7 10^3/uL (1.0-4.8); ABS Monocytes 5.6 10^3/uL (0.0-0.9); ABS Neutrophils 21.9 10^3/uL (1.5-7.6); ABS Nucleated RBC 0.24 10^3/ul; Basophilic Stippling 1+; Lymphocyte % 2.5 %; Nucleated Red Blood Cells % 0.9 %/100WBC (0.0-0.8); Polychromasia 2+
[2023-10-11] MEDS ORDERED: Rasburicase 1.5 MG VIAL(NF) IVPB ONE (11:54)
[2023-10-11] MEDS: Lactated Ringers 1000 ml BAG 1,000 ML IV SCH (12:18)
[2023-10-11] MEDS: Furosemide 20 mg/2 ml IV VIAL IV SLOW PU ONE (12:19)
[2023-10-11] MEDS: Rasburicase 3 MG in NS 0.9% 50 ML 48 ML IVPB ONE (15:12)
[2023-10-12 07:38] LABS: Hematocrit 24.3 % (35-45); Hemoglobin 7.7 g/dL (11.5-14.3); Mean Corpuscular Hemoglobin 27.6 pg (27-33); Mean Corpuscular Hgb Conc 31.7 g/dL (31-36); Mean Corpuscular Volume 86.9 fL (80-97); Mean Platelet Volume 8.9 fL (7.5-11.2); Platelet Count 106 10^3/uL (150-450); Red Blood Count 2.79 10^6/uL (3.63-4.92); Red Cell Distribution Width 18.4 % (12-17); White Blood Count 14.6 10^3/uL (3.8-11.8)
[2023-10-12 07:59] LABS: Calcium 8.7 mg/dL (8.6-10.3); Creatinine, Serum 1.8 mg/dL (0.51-0.95); Magnesium 2.6 mg/dL (1.9-2.7); Phosphorus 5.3 mg/dL (2.5-5.0); Potassium 5.3 mmol/L (3.5-5.0); Uric Acid 3.8 mg/dL (2.3-6.6)
[2023-10-12 10:18] LABS: ABS Basophils 0.1 10^3/uL (0.0-0.1); ABS Lymphocytes 0.6 10^3/uL (1.0-4.8); ABS Monocytes 3.7 10^3/uL (0.0-0.9); ABS Neutrophils 10.2 10^3/uL (1.5-7.6); ABS Nucleated RBC 0.18 10^3/ul; Eosinophil % 0.1 %; Lymphocyte % 4.4 %; Nucleated Red Blood Cells % 1.2 %/100WBC (0.0-0.8)
[2023-10-12] MEDS: Lactated Ringers 1000 ml BAG 1,000 ML IV SCH (12:14)
[2023-10-12] MEDS: SODIUM ZIRCONIUM CYCLOSILICATE 10 GM PACKET PO ONE (12:35)
[2023-10-12] MEDS: Furosemide 20 mg/2 ml IV VIAL IV SLOW PU ONE (12:35)
[2023-10-13 06:54] LABS: Hematocrit 25.7 % (35-45); Hemoglobin 8.2 g/dL (11.5-14.3); Mean Corpuscular Hemoglobin 27.7 pg (27-33); Mean Corpuscular Volume 86.5 fL (80-97); Mean Platelet Volume 8.9 fL (7.5-11.2); Platelet Count 106 10^3/uL (150-450); Red Blood Count 2.97 10^6/uL (3.63-4.92); Red Cell Distribution Width 18.5 % (12-17); White Blood Count 17.2 10^3/uL (3.8-11.8)
[2023-10-13 07:10] LABS: Calcium 9.1 mg/dL (8.6-10.3); Creatinine, Serum 1.76 mg/dL (0.51-0.95); Magnesium 2.7 mg/dL (1.9-2.7); Phosphorus 4.9 mg/dL (2.5-5.0); Uric Acid 4.6 mg/dL (2.3-6.6); eGFR CKD-EPI 28.7 (>60)
[2023-10-13] MEDS: NS 0.9% 1000 ml BAG 1,000 ML IV SCH (08:11)
[2023-10-13] MEDS: Insulin GLARGINE 100 un/ml 10 ml VIAL SUBCUT SCH (08:12)
[2023-10-13 08:52] LABS: ABS Lymphocytes 0.6 10^3/uL (1.0-4.8); ABS Neutrophils 13.5 10^3/uL (1.5-7.6); ABS Nucleated RBC 0.17 10^3/ul; Anisocytosis 1+; Lymphocyte % 3.8 %; Microcytosis 1+; Polychromasia 1+
[2023-10-13] MEDS: methylPREDNISolone SOD SUCC 40 mg/ml 1 ml VIAL IV SCH (15:35)
[2023-10-13] MEDS: Lidocaine 1% MPF 5 ML VIAL INJ ONE (22:10)
[2023-10-14 06:58] LABS: Hematocrit 26.5 % (35-45); Hemoglobin 8.4 g/dL (11.5-14.3); Mean Corpuscular Hemoglobin 27.6 pg (27-33); Mean Corpuscular Hgb Conc 31.8 g/dL (31-36); Mean Corpuscular Volume 86.9 fL (80-97); Mean Platelet Volume 8.5 fL (7.5-11.2); Platelet Count 102 10^3/uL (150-450); Red Blood Count 3.05 10^6/uL (3.63-4.92); Red Cell Distribution Width 18.6 % (12-17); White Blood Count 18.1 10^3/uL (3.8-11.8)
[2023-10-14 07:07] LABS: Creatinine, Serum 1.52 mg/dL (0.51-0.95); Magnesium 2.7 mg/dL (1.9-2.7); Phosphorus 5.5 mg/dL (2.5-5.0); Potassium 5.2 mmol/L (3.5-5.0); Uric Acid 5.6 mg/dL (2.3-6.6); eGFR CKD-EPI 34.2 (>60)
[2023-10-14 07:13] LABS: ABS Lymphocytes 0.5 10^3/uL (1.0-4.8); ABS Neutrophils 15.5 10^3/uL (1.5-7.6); Nucleated Red Blood Cells % 0.5 %/100WBC (0.0-0.8)
[2023-10-14] MEDS: Patiromer POWDER 8.4 GM PAK PO SCH (12:08)
[2023-10-14] MEDS: Lactulose 30 ml UDC PO SCH (14:32)
[2023-10-14 17:34] LABS: MDS (FISH) Referral Reason CML/MDS; MDS (FISH) Result Summary Normal; MDS (FISH) Source Left PIC
[2023-10-15 06:33] LABS: Hematocrit 27.4 % (35-45); Hemoglobin 8.7 g/dL (11.5-14.3); Mean Corpuscular Hemoglobin 27.8 pg (27-33); Mean Corpuscular Hgb Conc 31.7 g/dL (31-36); Mean Corpuscular Volume 87.8 fL (80-97); Platelet Count 107 10^3/uL (150-450); Red Blood Count 3.12 10^6/uL (3.63-4.92); Red Cell Distribution Width 18.6 % (12-17); White Blood Count 17.3 10^3/uL (3.8-11.8)
[2023-10-15 07:25] LABS: ABS Lymphocytes 0.7 10^3/uL (1.0-4.8); ABS Monocytes 1.5 10^3/uL (0.0-0.9); ABS Neutrophils 15.1 10^3/uL (1.5-7.6); ABS Nucleated RBC 0.11 10^3/ul; Eosinophil % 0.1 %; Lymphocyte % 4.1 %; Nucleated Red Blood Cells % 0.6 %/100WBC (0.0-0.8)
[2023-10-15 08:41] LABS: Anion Gap 9 mmol/L (2-16); Blood Urea Nitrogen 116 mg/dL (6-24); CO2 Carbon Dioxide 32 mmol/L (22-32); Calcium 8.6 mg/dL (8.6-10.3); Chloride 90 mmol/L (101-111); Creatinine, Serum 1.89 mg/dL (0.51-0.95); Glucose 178 mg/dL (70-100); Sodium 131 mmol/L (135-145); Uric Acid 6.8 mg/dL (2.3-6.6); eGFR CKD-EPI 26.4 (>60)
[2023-10-15 10:45] LABS: Magnesium 2.8 mg/dL (1.9-2.7); Phosphorus 6.8 mg/dL (2.5-5.0); Potassium Redraw 5.1 mmol/L (3.5-5.0)
[2023-10-15 13:52] VITALS: BP 100/65
[2023-10-19 10:06] LABS: BM Chromosome Source LPIC; BM Referral Reason CML/MDS; BM Result Summary Abnormal
== END 2023-10-15 15:30 | disposition home or self-care (01) | DRG 840 ==
LOC: EDHOLD 14:06 → ED 14:06 → EDHOLD 10-01 12:37 → MED 10-01 14:15 → SUATTDRO 10-02 11:00
PROVIDERS: ADMIT Internal Medicine; ATTEND Student in an Organized Health Care Education/Training Program

== ENCOUNTER 2023-10-17 13:45 | Inpatient (IN) ==
[2023-10-17 14:34] LABS: Venous Bicarbonate HCO3 21.9 mmol/L (24-28)
[2023-10-17 14:37] LABS: ABS Lymphocytes 0.3 10^3/uL (1.0-4.8); ABS Monocytes 0.8 10^3/uL (0.0-0.9); ABS Neutrophils 10.4 10^3/uL (1.5-7.6); ABS Nucleated RBC 0.02 10^3/ul; Hematocrit 27.1 % (35-45); Hemoglobin 8.6 g/dL (11.5-14.3); Lymphocyte % 2.7 %; Mean Corpuscular Hemoglobin 28.4 pg (27-33); Mean Corpuscular Hgb Conc 31.9 g/dL (31-36); Mean Corpuscular Volume 89.1 fL (80-97); Mean Platelet Volume 9.6 fL (7.5-11.2); Nucleated Red Blood Cells % 0.1 %/100WBC (0.0-0.8); Platelet Count 81 10^3/uL (150-450); Red Blood Count 3.04 10^6/uL (3.63-4.92); Red Cell Distribution Width 18.4 % (12-17); White Blood Count 11.6 10^3/uL (3.8-11.8)
[2023-10-17] MEDS ORDERED: NS 0.9% 1000 ml BAG 1,000 ML IV ONE (14:59)
[2023-10-17 15:07] LABS: ALT 22 U/L (7-52); Albumin 3.2 g/dL (3.2-5.2); Albumin/Globulin Ratio 0.8 (1-3); Alkaline Phosphatase 85 U/L (35-149); Anion Gap 9 mmol/L (2-16); Blood Urea Nitrogen 125 mg/dL (6-24); CO2 Carbon Dioxide 33 mmol/L (22-32); Calcium 8.8 mg/dL (8.6-10.3); Chloride 87 mmol/L (101-111); Creatinine, Serum 2.05 mg/dL (0.51-0.95); Globulin 4.2 g/dL (2-4); Glucose 465 mg/dL (70-100); Magnesium 2.8 mg/dL (1.9-2.7); Sodium 129 mmol/L (135-145); Total Protein 7.4 g/dL (6.4-8.9); eGFR CKD-EPI 23.9 (>60)
[2023-10-17 15:51] LABS: Potassium Redraw 4.4 mmol/L (3.5-5.0)
[2023-10-17] MEDS ORDERED: Dextrose 50% Syringe 50 ml 25 GM/50 ML SYRINGE IV PUSH PRN (16:14)
[2023-10-17 16:17] LABS: Urine Appearance Clear; Urine Bilirubin Negative (Negative); Urine Blood Negative (Negative); Urine Color Yellow; Urine Glucose 3+(>=500 mg/dL) (Negative); Urine Ketones Negative (Negative); Urine Nitrite Negative (Negative); Urine Protein Negative (Negative); Urine Specific Gravity 1.008 (1.002-1.030); Urine Urobilinogen Negative (Negative)
[2023-10-17] MEDS ORDERED: Albuterol/Ipratropium NEB.SOL (2.5/0.5 MG) 3 ML NEB.SOLN INH PRN (17:17)
[2023-10-17] MEDS ORDERED: Albuterol/Ipratropium NEB.SOL (2.5/0.5 MG) 3 ML NEB.SOLN INH SCH (18:00)
[2023-10-17 18:35] LABS: Rapid COVID-19 Molecular Undetected (Undetected)
[2023-10-17 18:53] LABS: Influenza A Molecular Negative (Negative); Influenza B Molecular Negative (Negative)
[2023-10-17] MEDS ORDERED: Albuterol HFA INHALER 8 gm MDI INH PRN (19:50)
[2023-10-17] MEDS ORDERED: Heparin 5000 UNITS/ML 1 mL VIAL SUBCUT SCH (22:00)
[2023-10-17] MEDS: Insulin GLARGINE 100 un/ml 10 ml VIAL SUBCUT SCH (22:47)
[2023-10-18] MEDS: FLUTICAS/UMECLI/VILANT 100-62.5-25 MDI (NF) INH SCH ×2 (00:35→07:40)
[2023-10-18 05:40] LABS: Calcium 8.9 mg/dL (8.6-10.3); Creatinine, Serum 1.78 mg/dL (0.51-0.95); Magnesium 2.7 mg/dL (1.9-2.7); Potassium 3.7 mmol/L (3.5-5.0); eGFR CKD-EPI 28.3 (>60)
[2023-10-18 05:44] LABS: ABS Basophils 0.1 10^3/uL (0.0-0.1); ABS Lymphocytes 0.5 10^3/uL (1.0-4.8); ABS Monocytes 0.5 10^3/uL (0.0-0.9); ABS Neutrophils 6.7 10^3/uL (1.5-7.6); ABS Nucleated RBC 0.02 10^3/ul; Eosinophil % 0.3 %; Hematocrit 25.9 % (35-45); Hemoglobin 8.5 g/dL (11.5-14.3); Lymphocyte % 6.5 %; Mean Corpuscular Hemoglobin 28.9 pg (27-33); Mean Corpuscular Hgb Conc 32.7 g/dL (31-36); Mean Corpuscular Volume 88.4 fL (80-97); Mean Platelet Volume 9.3 fL (7.5-11.2); Nucleated Red Blood Cells % 0.3 %/100WBC (0.0-0.8); Platelet Count 81 10^3/uL (150-450); Red Blood Count 2.93 10^6/uL (3.63-4.92); Red Cell Distribution Width 18.2 % (12-17); White Blood Count 7.8 10^3/uL (3.8-11.8)
[2023-10-18] MEDS: Insulin GLARGINE 100 un/ml 10 ml VIAL SUBCUT SCH ×2 (08:12→22:17)
[2023-10-18] MEDS ORDERED: DULOXETINE 30 MG PO SCH (10:00)
[2023-10-18] MEDS: DULoxetine DR 30 mg CAP PO SCH (12:19)
[2023-10-18] MEDS ORDERED: fentaNYL PATCH 25 MCG/HR 1 PATCH TRANSDERM SCH (17:00)
[2023-10-18] MEDS: fentaNYL Patch Check Q Shift NOTE FOLLOW UP SCH (19:11)
[2023-10-19] MEDS: fentaNYL Patch Check Q Shift NOTE FOLLOW UP SCH ×2 (07:07→19:30)
[2023-10-19] MEDS: HYDROcodone/Acetamin 10/325 TAB (NF) PO PRN ×2 (07:28→23:22)
[2023-10-19] MEDS: FLUTICAS/UMECLI/VILANT 100-62.5-25 MDI (NF) INH SCH (07:44)
[2023-10-19 08:21] LABS: Hematocrit 25.2 % (35-45); Hemoglobin 8.3 g/dL (11.5-14.3); Mean Corpuscular Hgb Conc 32.9 g/dL (31-36); Mean Corpuscular Volume 88.1 fL (80-97); Mean Platelet Volume 9.2 fL (7.5-11.2); Platelet Count 90 10^3/uL (150-450); Red Blood Count 2.86 10^6/uL (3.63-4.92); Red Cell Distribution Width 17.9 % (12-17); White Blood Count 7.6 10^3/uL (3.8-11.8)
[2023-10-19 08:24] LABS: Creatinine, Serum 1.84 mg/dL (0.51-0.95); Magnesium 2.7 mg/dL (1.9-2.7); Potassium 3.5 mmol/L (3.5-5.0); eGFR CKD-EPI 27.2 (>60)
[2023-10-19] MEDS: Insulin GLARGINE 100 un/ml 10 ml VIAL SUBCUT SCH ×2 (09:55→21:34)
[2023-10-19] MEDS: DULoxetine DR 30 mg CAP PO SCH (09:56)
[2023-10-19] MEDS ORDERED: Magnesium Hydroxide LIQ 30 ML UDC PO PRN (10:59)
[2023-10-19] MEDS ORDERED: Senna TAB 8.6 mg TAB PO PRN (10:59)
[2023-10-20 06:48] LABS: Hemoglobin 8.2 g/dL (11.5-14.3); Mean Corpuscular Hemoglobin 29.2 pg (27-33); Mean Corpuscular Hgb Conc 32.9 g/dL (31-36); Mean Corpuscular Volume 88.8 fL (80-97); Mean Platelet Volume 9.1 fL (7.5-11.2); Platelet Count 98 10^3/uL (150-450); Red Blood Count 2.81 10^6/uL (3.63-4.92); Red Cell Distribution Width 18.6 % (12-17); White Blood Count 4.5 10^3/uL (3.8-11.8)
[2023-10-20] MEDS: fentaNYL Patch Check Q Shift NOTE FOLLOW UP SCH (06:54)
[2023-10-20 07:01] LABS: Calcium 8.8 mg/dL (8.6-10.3); Creatinine, Serum 1.86 mg/dL (0.51-0.95); Potassium 3.5 mmol/L (3.5-5.0); eGFR CKD-EPI 26.9 (>60)
[2023-10-20] MEDS: HYDROcodone/Acetamin 10/325 TAB (NF) PO PRN (07:31)
[2023-10-20] MEDS: FLUTICAS/UMECLI/VILANT 100-62.5-25 MDI (NF) INH SCH (07:54)
[2023-10-20] MEDS: DULoxetine DR 30 mg CAP PO SCH (09:13)
[2023-10-20] MEDS: Insulin GLARGINE 100 un/ml 10 ml VIAL SUBCUT SCH (09:15)
[2023-10-20 13:19] VITALS: BP 98/63
== END 2023-10-20 15:45 | disposition home or self-care (01) | DRG 70 ==
LOC: ED 13:45 → EDHOLD 13:45 → SUATTDRO 16:12 → MED 19:30
PROVIDERS: ADMIT Student in an Organized Health Care Education/Training Program; ATTEND Internal Medicine